=== PATIENT | female | born 1985 | race Caucasian/White ===

== ENCOUNTER 2022-10-09 19:10 | Emergency (ER) | payer OTHER, SELFPAY ==
[2022-10-09 19:20] VITALS: BP 127/93; PULSE 82; RESP 16; TEMP 36.7; O2SAT 100; BMI 27.5
--- NOTE | 2022-10-09 19:32 | ED.SKABFB1 ---
HPI - Skin/Abscess/Foreign Bdy General Chief complaint: Skin/Abscess/Foreign Body Stated complaint: ALLERGIC REACTION Time Seen by Provider: 10/09/22 19:26 Source: patient Mode of arrival: walk-in History of Present Illness HPI narrative: patient is a 37-year-old female who presents to the emergency department for the evaluation of a burning, red and itchy rash across the face. She states she was mowing her lawn and when she took a shower shortly after, she noticed redness and itching on her face, she put an anti-itch cream with menthol on her face and states shortly after she notiiced significant increase in redness across the face with burning, redness and itching. She has not had any drainage. She denies any sensation of the rash inside the mouth. She has not had any tongue swelling, lip swelling, difficulty breathing. She has not had any diffuse hives. No oral medications taken prior to arrival, no concern for . Related Data Previous Rx's Medication Instructions Recorded hydroxyzine HCl 25 mg tablet 25 mg PO Q6H PRN itching #20 tabs 10/09/22 methylprednisolone 4 mg tablets in 4 mg PO DAILY #21 ea 10/09/22 a dose pack (Medrol (Dominick)) Allergies Allergy/AdvReac Type Severity Reaction Status Date / Time Penicillins Allergy Severe Verified 10/09/22 19:25 tramadol Allergy Severe Verified 10/09/22 19:25 bees Allergy Severe Uncoded 10/09/22 19:25 Review of Systems ROS Constitutional Denies: fever or chills Ears, nose, mouth, and throat Denies: throat pain Cardiovascular Denies: chest pain Respiratory Denies: shortness of breath or cough Gastrointestinal Denies: nausea or vomiting Integumentary/Breast Reports: rash, itching and redness Neurological Denies: headache Allergic/Immunologic Reports: facial swelling; Denies: hives, throat swelling or tongue swelling Exam Narrative Exam Narrative: Gen.: Awake, alert, in no distress Head: Normocephalic, atraumatic ENT: Moist mucous membranes, diffuse mild erythematous rash across the cheeks, forehead with no vesicles, crusting or drainage. No lesions in the mouth or the mucous membranes noted. No tongue, lip or airway swelling. Uvula midline with airway widely open and patent. Clear speech. Respiratory: No respiratory distress, lungs clear bilaterally Psych: Normal mood and affect Neuro: No focal neuro deficit Skin: Warm, dry, rash as described above Constitutional Vital Signs, click to edit/add: Last Vital Signs Temp 98.1 F 10/09/22 19:20 Pulse 82 10/09/22 19:20 Resp 16 10/09/22 19:20 BP 127/93 H 10/09/22 19:20 Pulse Ox 100 10/09/22 19:20 O2 Del Method Room Air 10/09/22 19:20 Course Vital Signs Vital signs: Vital Signs Temperature 98.1 F 10/09/22 19:20 Pulse Rate 82 10/09/22 19:20 Respiratory Rate 16 10/09/22 19:20 Blood Pressure 127/93 H 10/09/22 19:20 Pulse Oximetry 100 10/09/22 19:20 Oxygen Delivery Method Room Air 10/09/22 19:20 Temperature 98.1 F 10/09/22 19:20 Pulse Rate 82 10/09/22 19:20 Respiratory Rate 16 10/09/22 19:20 Blood Pressure 127/93 H 10/09/22 19:20 Pulse Oximetry 100 10/09/22 19:20 Oxygen Delivery Method Room Air 10/09/22 19:20 MDM - Skin/Abscess/Foreign Bdy MDM Narrative Medical decision making narrative: exam is consistent with a contact dermatitis. Patient is instructed not to apply any additional creams to her face and will be given a dose of antihistamines and steroids in the Emergency Room, prescriptions for Atarax and Medrol Dosepak for home. Return to the Emergency Room if symptoms change or worsen. Medical Records Attestation: I reviewed the patient's medical records. Discharge Plan Discharge Chief Complaint: Skin/Abscess/Foreign Body Clinical Impression: Skin rash, Contact dermatitis Patient Disposition: Home, Self-Care Time of Disposition Decision: 19:30 Condition: Good Mode of Transportation: Private Vehicle Prescriptions / Home Meds: New hydroxyzine HCl 25 mg tablet 25 mg PO Q6H PRN (Reason: itching) Qty: 20 0RF methylprednisolone [Medrol (Dominick)] 4 mg tablets,dose pack 4 mg PO DAILY Qty: 21 0RF Instructions: Contact Dermatitis (ED), Acute Rash (ED) Stand Alone Forms: Portal Instructions Referrals: CASH DANIEL [Primary Care Provider] - 1 week Discharge Date/Time: 10/09/22 19:48
[2022-10-09] MEDS: HYDROXYZINE HCL 25 MG TABLET PO (19:43)
[2022-10-09] MEDS: PREDNISONE 20 MG TABLET 60 MG PO (19:43)
== END 2022-10-09 19:48 | disposition home or self-care (01) ==
PROVIDERS: Emergency Provider Emergency Medicine; Family Provider Physician Assistant; PCP Physician Assistant
DX: L25.9 Unspecified contact dermatitis, unspecified cause (principal); R21 Rash and other nonspecific skin eruption
CPT/HCPCS: 99283

== ENCOUNTER 2022-10-16 12:53 | Outpatient (RCR) | payer OTHER, SELFPAY | END 2022-10-17 16:40 | disposition home or self-care (01) | LOC: PT 12:53 | PROVIDERS: Family Provider Physician Assistant; PCP Physician Assistant; Visit Provider Physician Assistant | DX: M41.25 Other idiopathic scoliosis, thoracolumbar region (principal); R20.0 Anesthesia of skin; Z87.828 Personal history of other (healed) physical injury and trauma | CPT/HCPCS: 97750 ==

== ENCOUNTER 2022-11-15 13:06 | Emergency (ER) | payer OTHER, SELFPAY ==
[2022-11-15] VITALS (8 sets, daily range): BP systolic 118–128; BP diastolic 70–91; PULSE 63–75; RESP 14–19; TEMP 36.5; O2SAT 96–98; BMI 28.0
--- NOTE | 2022-11-15 13:13 | ECG_ITS ---
The [facility] Test Date: 2022-11-15 Pat Name: DEBORAH ESPINOZA Department: Room: - Gender: Female Swatch Folder: : 1985 Requested By: [id number] Order Number: [id number] Reading MD: LUÍS GERBER Measurements Intervals [place] Rate: 62 P: 53 IA: 176 QRS: 77 QRSD: 84 T: 40 QT: 418 QTc: 422 Interpretive Statements 1100 Sinus rhythm 9110 normal ECG No previous ECG available for comparison Electronically Signed On 11-16-2022 7:08:10 EDT by LUÍS GERBER
--- NOTE | 2022-11-15 13:13 | ED.ALLEREA1 ---
Documented by User: DEBORAH Hdez 11/15/22 14:13 HPI - Allergic Reaction General Chief complaint: Allergic Reaction Stated complaint: BEE STING Time Seen by Provider: 11/15/22 13:09 Source: patient Mode of arrival: ambulance Limitations: no limitations History of Present Illness HPI narrative: Patient is a 37-year-old female presents to the emergency department for the evaluation of a bee sting to the dorsum of the left foot. She states she was stung twenty minutes ago. She injected herself with an EpiPen that she has a history of bee sting ALLERGY. She has not had any diffuse urticaria, lip swelling or tongue swelling. She called 911 to bring her to the hospital for evaluation. She arrives with normal vital signs. She states the left foot feels numb and painful. No other medications prior to arrival. She is not concerned for . Related Data Home Medications Medication Instructions Recorded Confirmed albuterol sulfate 90 mcg/actuation 2 puff inhalation Q6H PRN wheezing 11/15/22 11/15/22 aerosol inhaler bupropion HCl 150 mg 24 hr tablet, 150 mg PO DAILY 11/15/22 11/15/22 extended release ciclopirox 0.77 % topical cream 1 applic topical Q12H 11/15/22 11/15/22 diclofenac sodium 1 % topical gel 2 g topical QID 11/15/22 11/15/22 epinephrine 0.3 mg/0.3 mL 0.3 ml subcut ONCE PRN allergic 11/15/22 11/15/22 injection, auto-injector reaction ibuprofen 800 mg tablet 800 mg PO TID PRN pain 11/15/22 11/15/22 melatonin 5 mg capsule mg 11/15/22 triamcinolone acetonide 0.1 % 1 applic topical .12H 11/15/22 11/15/22 topical cream Previous Rx's Medication Instructions Recorded hydroxyzine HCl 25 mg tablet 25 mg PO Q6H PRN itching #20 tabs 10/09/22 methylprednisolone 4 mg tablets in 4 mg PO DAILY #21 ea 10/09/22 a dose pack (Medrol (Dominick)) hydroxyzine HCl 25 mg tablet 25 mg PO Q6H PRN itching #20 tabs 11/15/22 prednisone 20 mg tablet 60 mg PO DAILY 3 days #9 tabs 11/15/22 Allergies Allergy/AdvReac Type Severity Reaction Status Date / Time Penicillins Allergy Severe Verified 11/15/22 13:09 tramadol Allergy Severe Verified 11/15/22 13:09 bees Allergy Severe Uncoded 11/15/22 13:09 Review of Systems ROS Constitutional Denies: fever or chills Ears, nose, mouth, and throat Denies: throat pain Cardiovascular Denies: chest pain Respiratory Denies: shortness of breath Gastrointestinal Denies: nausea or vomiting Musculoskeletal Denies: back pain Integumentary/Breast Denies: rash Allergic/Immunologic Denies: hives, throat swelling, tongue swelling, facial swelling or wheezing PFSH [facility] Social History Smoking status: Former smoker Exam Narrative Exam Narrative: Gen.: Awake, alert, in no distress Head: Normocephalic, atraumatic ENT: Moist mucous membranes; no facial swelling, tongue or lip swelling. No stridor. Respiratory: No respiratory distress, lungs clear bilaterally; no wheezing noted Cardio: Regular rate and rhythm Extremities: Moves extremities equally, 2 cm faintly erythematous area to the dorsum of the left foot, no visible stinger. No induration. No diffuse hives. Psych: Normal mood and affect Neuro: No focal neuro deficit Skin: Warm, dry, intact; no rashes or urticaria noted. Bee sting to the dorsum of the left foot as described above. Constitutional Vital Signs, click to edit/add: Last Vital Signs Temp 97.7 F 11/15/22 13:06 Pulse 75 11/15/22 13:06 Resp 18 11/15/22 13:06 BP 128/70 11/15/22 13:06 Pulse Ox 98 11/15/22 13:06 O2 Del Method Room Air 11/15/22 13:06 Course Vital Signs Vital signs: Vital Signs Temperature 97.7 F 11/15/22 13:06 Pulse Rate 75 11/15/22 13:06 Respiratory Rate 18 11/15/22 13:06 Blood Pressure 128/70 11/15/22 13:06 Pulse Oximetry 98 11/15/22 13:06 Oxygen Delivery Method Room Air 11/15/22 13:06 Temperature 97.7 F 11/15/22 13:06 Pulse Rate 75 11/15/22 13:06 Respiratory Rate 18 11/15/22 13:06 Blood Pressure 128/70 11/15/22 13:06 Pulse Oximetry 98 11/15/22 13:06 Oxygen Delivery Method Room Air 11/15/22 13:06 MDM - Allergic Reaction MDM Narrative Medical decision making narrative: Patient observed in the emergency department for over an hour, she has no tachycardia, hypoxia. She appears well-hydrated and nontoxic. She was given IV fluids and Solu-Medrol in the Emergency Room will be discharged home with a short course of prednisone and antihistamines. No significant ALLERGIC reaction noted in the emergency department. Follow-up with PCP and return to the Emergency Room if symptoms change or worsen Medical Records Attestation: I reviewed the patient's medical records. ECG Data Attestation: I personally reviewed and interpreted this ECG as follows: (Normal sinus rhythm at a rate of sixty-two, no acute ST elevation or ectopy. EKG reviewed by attending physician) ECG interpretation date: 11/15/22 ECG interpretation time: 13:29 Discharge Plan Discharge Chief Complaint: Allergic Reaction Clinical Impression: Bee sting Patient Disposition: Home, Self-Care Time of Disposition Decision: 14:12 Condition: Good Prescriptions / Home Meds: New prednisone 20 mg tablet 60 mg PO DAILY 3 Days Qty: 9 0RF hydroxyzine HCl 25 mg tablet 25 mg PO Q6H PRN (Reason: itching) Qty: 20 0RF No Action albuterol sulfate 90 mcg/actuation HFA aerosol inhaler 2 puff INHALATION Q6H PRN (Reason: wheezing) bupropion HCl 150 mg tablet extended release 24 hr 150 mg PO DAILY ciclopirox 0.77 % cream 1 applic TOPICAL Q12H epinephrine 0.3 mg/0.3 mL auto-injector 0.3 ml subcut ONCE PRN (Reason: allergic reaction) triamcinolone acetonide 0.1 % cream 1 applic TOPICAL .12H ibuprofen 800 mg tablet 800 mg PO TID PRN (Reason: pain) diclofenac sodium 1 % gel 2 g topical QID Rx Instructions: apply to single elbow, wrist or hand; for hand includes palm/fingers/back of hand melatonin 5 mg capsule hydroxyzine HCl 25 mg tablet 25 mg PO Q6H PRN (Reason: itching) Qty: 20 0RF methylprednisolone [Medrol (Dominick)] 4 mg tablets,dose pack 4 mg PO DAILY Qty: 21 0RF Instructions: Insect Bite or Sting (ED) Stand Alone Forms: Portal Instructions Referrals: CASH DANIEL [Primary Care Provider] - 1 week Discharge Date/Time: 11/15/22 14:23 Documented by User: Jena Rick MD 11/15/22 16:39 HPI - Allergic Reaction General Chief complaint: Allergic Reaction Stated complaint: BEE STING Time Seen by Provider: 11/15/22 13:09 Related Data Home Medications Medication Instructions Recorded Confirmed albuterol sulfate 90 mcg/actuation 2 puff inhalation Q6H PRN wheezing 11/15/22 11/15/22 aerosol inhaler bupropion HCl 150 mg 24 hr tablet, 150 mg PO DAILY 11/15/22 11/15/22 extended release ciclopirox 0.77 % topical cream 1 applic topical Q12H 11/15/22 11/15/22 diclofenac sodium 1 % topical gel 2 g topical QID 11/15/22 11/15/22 epinephrine 0.3 mg/0.3 mL 0.3 ml subcut ONCE PRN allergic 11/15/22 11/15/22 injection, auto-injector reaction ibuprofen 800 mg tablet 800 mg PO TID PRN pain 11/15/22 11/15/22 melatonin 5 mg capsule mg 11/15/22 triamcinolone acetonide 0.1 % 1 applic topical .12H 11/15/22 11/15/22 topical cream Previous Rx's Medication Instructions Recorded hydroxyzine HCl 25 mg tablet 25 mg PO Q6H PRN itching #20 tabs 10/09/22 methylprednisolone 4 mg tablets in 4 mg PO DAILY #21 ea 10/09/22 a dose pack (Medrol (Dominick)) hydroxyzine HCl 25 mg tablet 25 mg PO Q6H PRN itching #20 tabs 11/15/22 prednisone 20 mg tablet 60 mg PO DAILY 3 days #9 tabs 11/15/22 Allergies Allergy/AdvReac Type Severity Reaction Status Date / Time Penicillins Allergy Severe Verified 11/15/22 13:09 tramadol Allergy Severe Verified 11/15/22 13:09 bees Allergy Severe Uncoded 11/15/22 13:09 [facility] Social History Smoking status: Former smoker Exam Constitutional Vital Signs, click to edit/add: Last Vital Signs Temp 97.7 F 11/15/22 13:06 Pulse 75 11/15/22 13:06 Resp 18 11/15/22 13:06 BP 128/70 11/15/22 13:06 Pulse Ox 98 11/15/22 13:06 O2 Del Method Room Air 11/15/22 13:06 Course Vital Signs Vital signs: Vital Signs Temperature 97.7 F 11/15/22 13:06 Pulse Rate 75 11/15/22 13:06 Respiratory Rate 18 11/15/22 13:06 Blood Pressure 128/70 11/15/22 13:06 Pulse Oximetry 98 11/15/22 13:06 Oxygen Delivery Method Room Air 11/15/22 13:06 Temperature 97.7 F 11/15/22 13:06 Pulse Rate 75 11/15/22 13:06 Respiratory Rate 18 11/15/22 13:06 Blood Pressure 128/70 11/15/22 13:06 Pulse Oximetry 98 11/15/22 13:06 Oxygen Delivery Method Room Air 11/15/22 13:06 MDM - Allergic Reaction MDM Narrative Medical decision making narrative: Patient observed in the emergency department for over an hour, she has no tachycardia, hypoxia. She appears well-hydrated and nontoxic. She was given IV fluids and Solu-Medrol in the Emergency Room will be discharged home with a short course of prednisone and antihistamines. No significant ALLERGIC reaction noted in the emergency department. Follow-up with PCP and return to the Emergency Room if symptoms change or worsen Attending physician attestation I have reviewed the mid-level documentation, agree with the documentation, medical decision making and treatment plan as outlined by the mid-level provider. Discharge Plan Discharge Chief Complaint: Allergic Reaction Clinical Impression: Bee sting Patient Disposition: Home, Self-Care Time of Disposition Decision: 14:12 Condition: Good Prescriptions / Home Meds: New prednisone 20 mg tablet 60 mg PO DAILY 3 Days Qty: 9 0RF hydroxyzine HCl 25 mg tablet 25 mg PO Q6H PRN (Reason: itching) Qty: 20 0RF No Action albuterol sulfate 90 mcg/actuation HFA aerosol inhaler 2 puff INHALATION Q6H PRN (Reason: wheezing) bupropion HCl 150 mg tablet extended release 24 hr 150 mg PO DAILY ciclopirox 0.77 % cream 1 applic TOPICAL Q12H epinephrine 0.3 mg/0.3 mL auto-injector 0.3 ml subcut ONCE PRN (Reason: allergic reaction) triamcinolone acetonide 0.1 % cream 1 applic TOPICAL .12H ibuprofen 800 mg tablet 800 mg PO TID PRN (Reason: pain) diclofenac sodium 1 % gel 2 g topical QID Rx Instructions: apply to single elbow, wrist or hand; for hand includes palm/fingers/back of hand melatonin 5 mg capsule hydroxyzine HCl 25 mg tablet 25 mg PO Q6H PRN (Reason: itching) Qty: 20 0RF methylprednisolone [Medrol (Dominick)] 4 mg tablets,dose pack 4 mg PO DAILY Qty: 21 0RF Instructions: Insect Bite or Sting (ED) Stand Alone Forms: Portal Instructions Referrals: CASH DANIEL [Primary Care Provider] - 1 week Discharge Date/Time: 11/15/22 14:23
[2022-11-15] MEDS: 0.9 % SODIUM CHLORIDE 1,000 ML 1000 ML IV (13:22)
[2022-11-15] MEDS: METHYLPREDNISOLONE SOD SUCC PF 125 MG/2 ML VIAL IVP (13:22)
== END 2022-11-15 14:23 | disposition home or self-care (01) ==
PROVIDERS: Emergency Provider Emergency Medicine; Family Provider Physician Assistant; PCP Physician Assistant
DX: T63.441A Toxic effect of venom of bees, accidental (unintentional), initial encounter (principal); Z79.899 Other long term (current) drug therapy; Z87.891 Personal history of nicotine dependence
CPT/HCPCS: 93005; 96374; 99284; J2930

== ENCOUNTER 2022-12-10 14:07 | Emergency (ER) | payer OTHER, SELFPAY ==
[2022-12-10 14:13] VITALS: BP 130/95; PULSE 95; RESP 16; TEMP 36.7; O2SAT 96; BMI 28.5
--- NOTE | 2022-12-10 14:55 | XR_ITS ---
The [address] [address] Patient Name: DEBORAH ESPINOZA MRN: [id number] date: 1985 Sex: F Assigned Patient Location: ER Current Patient Location: ER Accession/Order Number: [id number] Exam Date: 12/10/2022 15:10 Report Date: 12/10/2022 15:38 At the request of: DOMO AGUILAR Procedure: XR finger LT min 2V EXAM: XR finger LT min 2V HISTORY: Fifth digit trauma COMPARISON: None. TECHNIQUE: 2 views FINDINGS: IMPRESSION: No visualized fracture, dislocation, subluxation or osseous lesion. No radiodense foreign body. Electronically authenticated by: TEODORO LINARES Date: 12/10/2022 15:38
--- NOTE | 2022-12-10 15:24 | ED_ITS ---
HPI - General Adult General Chief complaint: Wound/Laceration Stated complaint: LEFT HAND CUT Time Seen by Provider: 12/10/22 14:29 Source: patient and family Mode of arrival: walk-in Limitations: no limitations History of Present Illness HPI narrative: The patient presented to us with a laceration to the left pinky finger that happened within the last hour before arrival, the patient mentioned that she was working with a metal fence although the patient mechanism of injury is not clear because she mentioned at her some point she had some dirt on her hand and she also had trauma that she was worried about fracture The patient denies any other complaints and she also had her tetanus booster more than 5 years ago Related Data Home Medications Medication Instructions Recorded Confirmed albuterol sulfate 90 mcg/actuation 2 puff inhalation Q6H PRN wheezing 11/15/22 11/15/22 aerosol inhaler bupropion HCl 150 mg 24 hr tablet, 150 mg PO DAILY 11/15/22 11/15/22 extended release ciclopirox 0.77 % topical cream 1 applic topical Q12H 11/15/22 11/15/22 diclofenac sodium 1 % topical gel 2 g topical QID 11/15/22 11/15/22 epinephrine 0.3 mg/0.3 mL 0.3 ml subcut ONCE PRN allergic 11/15/22 11/15/22 injection, auto-injector reaction ibuprofen 800 mg tablet 800 mg PO TID PRN pain 11/15/22 11/15/22 melatonin 5 mg capsule mg 11/15/22 triamcinolone acetonide 0.1 % 1 applic topical .12H 11/15/22 11/15/22 topical cream Previous Rx's Medication Instructions Recorded hydroxyzine HCl 25 mg tablet 25 mg PO Q6H PRN itching #20 tabs 10/09/22 methylprednisolone 4 mg tablets in 4 mg PO DAILY #21 ea 10/09/22 a dose pack (Medrol (Dominick)) hydroxyzine HCl 25 mg tablet 25 mg PO Q6H PRN itching #20 tabs 11/15/22 prednisone 20 mg tablet 60 mg PO DAILY 3 days #9 tabs 11/15/22 doxycycline hyclate 100 mg capsule 100 mg PO BID 7 days #14 caps 12/10/22 Allergies Allergy/AdvReac Type Severity Reaction Status Date / Time Penicillins Allergy Severe Verified 12/10/22 14:19 tramadol Allergy Severe Verified 12/10/22 14:19 bees Allergy Severe Uncoded 12/10/22 14:19 whooping cough vaccine AdvReac Severe itching Uncoded 12/10/22 14:19 Review of Systems ROS Status of ROS 10 or more systems reviewed and unremarkable except as noted in history and below [facility] Social History Smoking status: Never smoker Exam Narrative Exam Narrative: Nurses notes and vital signs reviewed and patient is not hypoxic. General: Well-appearing and in no apparent distress. Skin: Warm, dry, no pallor noted. No rash. Head: Normocephalic, atraumatic. Neck: Supple, non-tender. Eye: Pupils are equal, round and EOMI. No scleral icterus. Ears, Nose, Mouth, and Throat: TM are clear, no nasal mucosal hypertrophy. Oral mucosa is moist, no posterior oropharynx erythema, uvula is mid-line Cardiovascular: Regular Rate and Rhythm without murmur, gallop or rub. Respiratory: No accessory muscle use or respiratory distress. Lungs are clear to auscultation, no wheezing, rales or rhonchi Chest Wall: no tenderness Back: No midline thoracic or lumbar vertebral tenderness. No CVA tenderness Musculoskeletal: normal ROM, no calf or popliteal tenderness, just by the small finger proximally on the dorsum of the left small finger the patient have a laceration that 1 cm linear no foreign body just proximal to the interphalangeal proximal joint, there was no foreign body and there was no exposure of the underlying structure it was holding its place in good tension there was tendern ess upon palpation of the underlying bone GI: Abdomen is soft, non-distended. Normal bowel sounds. No masses appreciated. No tenderness to palpation. No rebound, guarding, or rigidity noted. Neurological: A&O x4. No cranial nerve dysfunction observed. No truncal ataxia. Moves all extremities. Sensation intact. Psychiatric: Cooperative and interactive. Normal mood and affect. Constitutional Vital Signs, click to edit/add: Last Vital Signs Temp 98.1 F 12/10/22 14:13 Pulse 95 H 12/10/22 14:13 Resp 16 12/10/22 14:13 BP 130/95 H 12/10/22 14:13 Pulse Ox 96 12/10/22 14:13 O2 Del Method Room Air 12/10/22 14:13 Course Vital Signs Vital signs: Vital Signs Temperature 98.1 F 12/10/22 14:13 Pulse Rate 95 H 12/10/22 14:13 Respiratory Rate 16 12/10/22 14:13 Blood Pressure 130/95 H 12/10/22 14:13 Pulse Oximetry 96 12/10/22 14:13 Oxygen Delivery Method Room Air 12/10/22 14:13 Temperature 98.1 F 12/10/22 14:13 Pulse Rate 95 H 12/10/22 14:13 Respiratory Rate 16 12/10/22 14:13 Blood Pressure 130/95 H 12/10/22 14:13 Pulse Oximetry 96 12/10/22 14:13 Oxygen Delivery Method Room Air 12/10/22 14:13 Medical Decision Making MDM Narrative Medical decision making narrative: The patient wound was cleaned thoroughly with Betadine and normal saline after which she had Dermabond applied and a finger splint The patient refused the tetanus booster because she mentioned that she have allergy to the whooping cough vaccine The patient had an x-ray of her left small finger X-ray showed no acute pathology the patient instructed about wound care and discharged home with doxycyclin prescription as well as ibuprofen for the pain The patient is to follow up with primary care physician in next 2-3 days or to return to the emergency department should any of the signs or symptoms worsen or new symptoms develop. The patient agrees with the following Diagnosis and Treatment plan and the patient will be discharged home. Discharge Plan Discharge Chief Complaint: Wound/Laceration Clinical Impression: Contusion of finger, Finger laceration Patient Disposition: Home, Self-Care Time of Disposition Decision: 15:51 Prescriptions / Home Meds: New doxycycline hyclate 100 mg capsule 100 mg PO BID 7 Days Qty: 14 0RF No Action albuterol sulfate 90 mcg/actuation HFA aerosol inhaler 2 puff INHALATION Q6H PRN (Reason: wheezing) bupropion HCl 150 mg tablet extended release 24 hr 150 mg PO DAILY ciclopirox 0.77 % cream 1 applic TOPICAL Q12H epinephrine 0.3 mg/0.3 mL auto-injector 0.3 ml subcut ONCE PRN (Reason: allergic reaction) triamcinolone acetonide 0.1 % cream 1 applic TOPICAL .12H ibuprofen 800 mg tablet 800 mg PO TID PRN (Reason: pain) diclofenac sodium 1 % gel 2 g topical QID Rx Instructions: apply to single elbow, wrist or hand; for hand includes palm/fingers/back of hand melatonin 5 mg capsule prednisone 20 mg tablet 60 mg PO DAILY 3 Days Qty: 9 0RF hydroxyzine HCl 25 mg tablet 25 mg PO Q6H PRN (Reason: itching) Qty: 20 0RF hydroxyzine HCl 25 mg tablet 25 mg PO Q6H PRN (Reason: itching) Qty: 20 0RF methylprednisolone [Medrol (Dominick)] 4 mg tablets,dose pack 4 mg PO DAILY Qty: 21 0RF Instructions: Finger Laceration (ED) Stand Alone Forms: Portal Instructions Referrals: CASH DANIEL [Primary Care Provider] - 1 week
== END 2022-12-10 16:04 | disposition home or self-care (01) ==
PROVIDERS: Emergency Provider Emergency Medicine; Family Provider Physician Assistant; PCP Physician Assistant
DX: S61.217A Laceration without foreign body of left little finger without damage to nail, initial encounter (principal); S60.022A Contusion of left index finger without damage to nail, initial encounter; W45.8XXA Other foreign body or object entering through skin, initial encounter; Z79.899 Other long term (current) drug therapy
CPT/HCPCS: 12001; 73140; 99283

== ENCOUNTER 2022-12-22 13:02 | Outpatient (OUT) | payer OTHER, SELFPAY ==
--- NOTE | 2022-12-22 13:22 | XR_ITS ---
The [address] [address] Patient Name: DEBORAH ESPINOZA MRN: [id number] date: 1985 Sex: F Assigned Patient Location: [facility] Current Patient Location: [facility] Accession/Order Number: [id number] Exam Date: 12/22/2022 13:15 Report Date: 12/22/2022 13:50 At the request of: CASH DANIEL Procedure: XR finger LT min 2V EXAM: XR finger LT min 2V HISTORY: Finger Injury And Swelling COMPARISON: None. TECHNIQUE: 3 views of the left fifth digit. FINDINGS: There is no evidence of an acute fracture or dislocation. The visualized joint spaces are intact. Soft tissue swelling is noted. No radiopaque foreign body or free air is seen in the soft tissues. XR/XR finger LT min 2V IMPRESSION: No acute fracture or dislocation. No apparent osseous abnormality is identified. Focal soft tissue swelling is noted. Electronically authenticated by: ZAHRA ROCHE Date: 12/22/2022 13:50
== END 2022-12-22 13:03 | disposition home or self-care (01) ==
LOC: RAD 13:04
PROVIDERS: Family Provider Physician Assistant; PCP Physician Assistant; Visit Provider Physician Assistant
DX: M79.89 Other specified soft tissue disorders (principal); S69.92XA Unspecified injury of left wrist, hand and finger(s), initial encounter
CPT/HCPCS: 73140

== ENCOUNTER 2023-04-16 16:45 | Emergency (ER) | payer OTHER, SELFPAY ==
[2023-04-16 16:48] VITALS: BP 144/95; PULSE 78; RESP 16; TEMP 36.8; O2SAT 98; BMI 27.1
--- NOTE | 2023-04-16 16:51 | XR_ITS ---
The [address] [address] Patient Name: DEBORAH ESPINOZA MRN: [facility]:[id number] date: 1985 Sex: F Assigned Patient Location: ER Current Patient Location: ER Accession/Order Number: [id number] Exam Date: 04/16/2023 17:12 Report Date: 04/16/2023 17:46 At the request of: LUPE ARMANDO Procedure: XR foot LT min 3V EXAM: XR foot LT min 3V HISTORY: injury COMPARISON: None. TECHNIQUE: 3 views of the left foot FINDINGS: There is no acute fracture or dislocation. No cortical erosion. Soft tissues are unremarkable. XR/XR foot LT min 3V IMPRESSION: No acute fracture. Electronically authenticated by: KANCHAN MATIAS Date: 04/16/2023 17:46
--- NOTE | 2023-04-16 16:52 | ED.LOWEXI1 ---
HPI - Extremity Injury (Lower) General Chief Complaint: Extremity Injury, Lower Stated Complaint: foot injury Time Seen by Provider: 04/16/23 16:47 Source: patient Mode of arrival: walk-in History of Present Illness HPI Narrative: Patient is a 37-year-old female who presents to the emergency department for an injury to the left foot that occurred yesterday at home. She states she was outside when a picnic table fell on the dorsum of her left foot. She complains of pain over the great toe and into the dorsal medial aspect of the left foot. She ambulates with crutches into the ER. She had no other associated injuries. No ankle pain. No concern for . Related Data Home Medications Medication Instructions Recorded Confirmed albuterol sulfate 90 mcg/actuation 2 puff inhalation Q6H PRN wheezing 11/15/22 04/16/23 aerosol inhaler bupropion HCl 150 mg 24 hr tablet, 150 mg PO DAILY 11/15/22 04/16/23 extended release ciclopirox 0.77 % topical cream 1 applic topical Q12H 11/15/22 04/16/23 diclofenac sodium 1 % topical gel 2 g topical QID 11/15/22 04/16/23 epinephrine 0.3 mg/0.3 mL 0.3 ml subcut ONCE PRN allergic 11/15/22 04/16/23 injection, auto-injector reaction melatonin 5 mg capsule 5 mg PO QPM 11/15/22 04/16/23 aripiprazole 2 mg tablet 2 mg PO QAM 04/16/23 04/16/23 ciclopirox 1 % shampoo 5 ml topical QWEEK 04/16/23 04/16/23 Previous Rx's Medication Instructions Recorded naproxen sodium 550 mg tablet 550 mg PO BID PRN pain #10 tabs 04/16/23 Allergies Allergy/AdvReac Type Severity Reaction Status Date / Time Penicillins Allergy Severe Verified 12/10/22 14:19 tramadol Allergy Severe Verified 12/10/22 14:19 bees Allergy Severe Uncoded 12/10/22 14:19 whooping cough vaccine AdvReac Severe itching Uncoded 12/10/22 14:19 Review of Systems ROS Constitutional Denies: fever or chills Ears, nose, mouth, and throat Denies: throat pain or nasal congestion Cardiovascular Denies: chest pain Respiratory Denies: shortness of breath or cough Gastrointestinal Denies: nausea or vomiting Musculoskeletal Reports: extremity pain; Denies: back pain, neck pain, extremity swelling or joint pain Integumentary/Breast Denies: rash Neurological Denies: headache Allergic/Immunologic Denies: h[facility] Social History Smoking status: Never smoker Exam Narrative Exam Narrative: Gen.: Awake, alert, in no distress Head: Normocephalic, atraumatic ENT: Moist mucous membranes Respiratory: No respiratory distress Extremities: Moves extremities equally, No bony tenderness of the left foot with no obvious deformity, no swelling, no ecchymosis. Limited flexion and extension of the toes due to pain. 2+ left DP pulse. No bony tenderness of the medial or lateral left ankle Psych: Normal mood and affect Neuro: No focal neuro deficit Skin: Warm, dry, intact Constitutional Vital Signs, click to edit/add: Last Vital Signs Temp 98.2 F 04/16/23 16:48 Pulse 78 04/16/23 16:48 Resp 16 04/16/23 16:48 BP 144/95 H 04/16/23 16:48 Pulse Ox 98 04/16/23 16:48 O2 Del Method Room Air 04/16/23 16:48 Course Vital Signs Vital signs: Vital Signs Temperature 98.2 F 04/16/23 16:48 Pulse Rate 78 04/16/23 16:48 Respiratory Rate 16 04/16/23 16:48 Blood Pressure 144/95 H 04/16/23 16:48 Pulse Oximetry 98 04/16/23 16:48 Oxygen Delivery Method Room Air 04/16/23 16:48 Temperature 98.2 F 04/16/23 16:48 Pulse Rate 78 04/16/23 16:48 Respiratory Rate 16 04/16/23 16:48 Blood Pressure 144/95 H 04/16/23 16:48 Pulse Oximetry 98 04/16/23 16:48 Oxygen Delivery Method Room Air 04/16/23 16:48 MDM - Extremity Injury (Lower) MDM Narrative Medical decision making narrative: X-rays with no evidence of acute fracture, these were read by the radiologist. Patient has crutches. She is placed in an Prakash wrap and postop shoe and given NSAIDs for comfort for home. Follow-up with PCP. Rest, ice, elevate. Return to the ER if symptoms change or worsen. Medical Records Attestation: I reviewed the patient's medical records. Imaging Data XR foot: Attestation: I have reviewed the pertinent imaging results. Radiologist's impression: ITS Impressions Foot X-Ray 04/16/23 16:51 IMPRESSION: No acute fracture. Electronically authenticated by: KANCHAN MATIAS Date: 04/16/2023 17:46 Discharge Plan Discharge Chief Complaint: Extremity Injury, Lower Clinical Impression: Contusion of foot, left Patient Disposition: Home, Self-Care Time of Disposition Decision: 17:54 Condition: Good Prescriptions / Home Meds: New naproxen sodium 550 mg tablet 550 mg PO BID PRN (Reason: pain) Qty: 10 0RF No Action albuterol sulfate 90 mcg/actuation HFA aerosol inhaler 2 puff INHALATION Q6H PRN (Reason: wheezing) bupropion HCl 150 mg tablet extended release 24 hr 150 mg PO DAILY ciclopirox 0.77 % cream 1 applic TOPICAL Q12H epinephrine 0.3 mg/0.3 mL auto-injector 0.3 ml subcut ONCE PRN (Reason: allergic reaction) diclofenac sodium 1 % gel 2 g topical QID Rx Instructions: apply to single elbow, wrist or hand; for hand includes palm/fingers/back of hand melatonin 5 mg capsule 5 mg PO QPM aripiprazole 2 mg tablet 2 mg PO QAM ciclopirox 1 % shampoo 5 ml TOPICAL QWEEK Instructions: Foot Contusion (ED) Stand Alone Forms: Portal Instructions Referrals: CASH DANIEL [Primary Care Provider] - 1 week Discharge Date/Time: 04/16/23 18:14
--- NOTE | 2023-04-16 16:52 | PC.NURSE ---
home scooter wrap removed and no swelling to site, small bruise to mid great toe. pt using home crutches upon arrival, ice in place
== END 2023-04-16 18:14 | disposition home or self-care (01) ==
PROVIDERS: Emergency Provider Emergency Medicine; Family Provider Physician Assistant; PCP Physician Assistant
DX: S90.32XA Contusion of left foot, initial encounter (principal); W20.8XXA Other cause of strike by thrown, projected or falling object, initial encounter; Z79.899 Other long term (current) drug therapy
CPT/HCPCS: 73630; 99283

== ENCOUNTER 2023-05-16 20:50 | Emergency (ER) | payer OTHER, SELFPAY ==
[2023-05-16 20:55] VITALS: BP 144/90; PULSE 94; RESP 18; TEMP 36.9; O2SAT 96; BMI 28.1
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
--- NOTE | 2023-05-16 21:06 | ED.URI1 ---
HPI - URI/Sore Throat General Chief Complaint: Upper Respiratory Infection Stated Complaint: Flu Like Symptoms Time Seen by Provider: 05/16/23 21:00 Source: patient Limitations: no limitations History of Present Illness HPI Narrative: Patient is a 37-year-old female who presents to the emergency department for the evaluation of upper respiratory complaints. She states her primary concern is her sore throat for the last 2 days associated with low-grade fevers, chills, nasal congestion and cough. She has had no sputum production, nausea, vomiting, diarrhea. She is able to drink fluids without difficulty. She is not concerned for . No medications taken prior to arrival other than Motrin. She reports temperatures as high as 101.0 Fahrenheit earlier in the course of her illness.She did recently travel to visit family, her family member questions if she may have picked up something. Related Data Home Medications Medication Instructions Recorded Confirmed albuterol sulfate 90 mcg/actuation 2 puff inhalation Q6H PRN wheezing 11/15/22 04/16/23 aerosol inhaler bupropion HCl 150 mg 24 hr tablet, 150 mg PO DAILY 11/15/22 04/16/23 extended release ciclopirox 0.77 % topical cream 1 applic topical Q12H 11/15/22 04/16/23 diclofenac sodium 1 % topical gel 2 g topical QID 11/15/22 04/16/23 epinephrine 0.3 mg/0.3 mL 0.3 ml subcut ONCE PRN allergic 11/15/22 04/16/23 injection, auto-injector reaction melatonin 5 mg capsule 5 mg PO QPM 11/15/22 04/16/23 aripiprazole 2 mg tablet 2 mg PO QAM 04/16/23 04/16/23 ciclopirox 1 % shampoo 5 ml topical QWEEK 04/16/23 04/16/23 Previous Rx's Medication Instructions Recorded naproxen sodium 550 mg tablet 550 mg PO BID PRN pain #10 tabs 04/16/23 qecdasgkrujqewl-bwortmalgrstnyw-TK 10 ml PO Q6H PRN cold symptoms 05/16/23 2 mg-30 mg-10 mg/5 mL oral syrup #200 mL (Bromfed DM) Allergies Allergy/AdvReac Type Severity Reaction Status Date / Time Penicillins Allergy Severe Verified 05/16/23 21:00 tramadol Allergy Severe Verified 05/16/23 21:00 bees Allergy Severe Uncoded 05/16/23 21:00 whooping cough vaccine AdvReac Severe itching Uncoded 05/16/23 21:00 Review of Systems ROS Constitutional Reports: fever and chills Ears, nose, mouth, and throat Reports: throat pain, ear pain, nasal discharge and nasal congestion; Denies: difficulty swallowing or hoarseness Cardiovascular Denies: chest pain Respiratory Reports: cough; Denies: shortness of breath Gastrointestinal Denies: nausea, vomiting or diarrhea Genitourinary Denies: painful urination Integumentary/Breast Denies: rash Neurological Denies: headache Endocrine Denies: excessive urination [facility] Social History Smoking status: Former smoker Exam Narrative Exam Narrative: Gen.: Awake, alert, in no distress Head: Normocephalic, atraumatic ENT: Moist mucous membranes, Airway is widely open and patent, uvula midline, minimal pharyngeal erythema with no tonsillar edema or exudate. Clear speech, no trismus or drooling. No hoarse or muffled voice.Bilateral TMs bulging, clear Respiratory: No respiratory distress, lungs clear bilaterally Cardio: Regular rate and rhythm Extremities: Moves extremities equally Psych: Normal mood and affect Neuro: No focal neuro deficit Skin: Warm, dry, intact Constitutional Vital Signs, click to edit/add: Last Vital Signs Temp 98.4 F 05/16/23 20:55 Pulse 94 H 05/16/23 20:55 Resp 18 05/16/23 20:55 BP 144/90 H 05/16/23 20:55 Pulse Ox 96 05/16/23 20:55 O2 Del Method Room Air 05/16/23 20:55 Course Vital Signs Vital signs: Vital Signs Temperature 98.4 F 05/16/23 20:55 Pulse Rate 94 H 05/16/23 20:55 Respiratory Rate 18 05/16/23 20:55 Blood Pressure 144/90 H 05/16/23 20:55 Pulse Oximetry 96 05/16/23 20:55 Oxygen Delivery Method Room Air 05/16/23 20:55 Temperature 98.4 F 05/16/23 20:55 Pulse Rate 94 H 05/16/23 20:55 Respiratory Rate 18 05/16/23 20:55 Blood Pressure 144/90 H 05/16/23 20:55 Pulse Oximetry 96 05/16/23 20:55 Oxygen Delivery Method Room Air 05/16/23 20:55 MDM - URI/Sore Throat MDM Narrative Medical decision making narrative: Patient treated with Decadron in the ER. Strep screen, influenza and COVID tests are negative. Patient placed on Bromfed-DM and BMX solution for home. Follow-up with PCP and return to the ER if symptoms change or worsen. Medical Records Attestation: I reviewed the patient's medical records. Lab Data Attestation: I reviewed the patient's lab results. Labs: Lab Results 05/16/23 Range/Units 21:00 Influenza Type A Ag Negative Influenza Type B Ag Negative SARS-CoV-2 Ag (CV2AG) Negative (NEGATIVE) Streptococcus Screen Negative Discharge Plan Discharge Chief Complaint: Upper Respiratory Infection Clinical Impression: Upper respiratory infection, Pharyngitis Patient Disposition: Home, Self-Care Time of Disposition Decision: 21:31 Condition: Good Prescriptions / Home Meds: New xfqjladlyfyowns-jixazswne-AE [Bromfed DM] 2-30-10 mg/5 mL syrup 10 ml PO Q6H PRN (Reason: cold symptoms) Qty: 200 0RF No Action albuterol sulfate 90 mcg/actuation HFA aerosol inhaler 2 puff INHALATION Q6H PRN (Reason: wheezing) bupropion HCl 150 mg tablet extended release 24 hr 150 mg PO DAILY ciclopirox 0.77 % cream 1 applic TOPICAL Q12H epinephrine 0.3 mg/0.3 mL auto-injector 0.3 ml subcut ONCE PRN (Reason: allergic reaction) diclofenac sodium 1 % gel 2 g topical QID Rx Instructions: apply to single elbow, wrist or hand; for hand includes palm/fingers/back of hand melatonin 5 mg capsule 5 mg PO QPM aripiprazole 2 mg tablet 2 mg PO QAM ciclopirox 1 % shampoo 5 ml TOPICAL QWEEK naproxen sodium 550 mg tablet 550 mg PO BID PRN (Reason: pain) Qty: 10 0RF Instructions: Pharyngitis (ED), Upper Respiratory Infection (ED) Stand Alone Forms: Portal Instructions Referrals: CASH DANIEL [Primary Care Provider] - 1 week
[2023-05-16 21:17] LABS: Internal Control Within Normal Limits; Strep A Antigen Screen Negative
[2023-05-16 21:23] LABS: Influenza Virus A Antigen Negative; Influenza Virus B Antigen Negative; Internal Control Within Normal Limits; SARS-CoV-2 Ag NEGATIVE (NEGATIVE)
[2023-05-16] MEDS: DEXAMETHASONE SOD PHOS 10 MG/ML VIAL PO (21:42)
--- NOTE | 2023-05-16 21:49 | PC.NURSE ---
Discussed discharge paperwork with pt and . All questions answered. Scripts provided. Pt verbalized understanding to follow up with pcp. Pt ambulated off unit in stable condition.
== END 2023-05-16 21:49 | disposition home or self-care (01) ==
PROVIDERS: Physician Assistant; Emergency Provider Emergency Medicine; Family Provider Physician Assistant; PCP Physician Assistant
DX: J02.9 Acute pharyngitis, unspecified (principal); J06.9 Acute upper respiratory infection, unspecified; Z87.891 Personal history of nicotine dependence; Z79.899 Other long term (current) drug therapy; Z20.822 Contact with and (suspected) exposure to COVID-19
CPT/HCPCS: 87070; 87804; 87811; 87880; 99285; J1100

== ENCOUNTER 2023-07-02 08:59 | Outpatient (OUT) | payer OTHER, SELFPAY ==
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
--- OUTSIDE RECORDS SUMMARY | 2023-07-02 09:07 | XMS_ITS | CCD ---
Author Organization [facility] Care Team Providers Care Traffic Inspector Name Role Phone KOLBY KIRK Admitting Unavailable KOLBY KIRK Attending Unavailable MISC, DR PETERSON Primary Care Unavailable KOLBY KIRK Consulting Unavailable DALJIT RO Consulting Unavailable MISC, DR PETERSON Primary Care Unavailable HENNY WEBBER Admitting Unavailable LAWANDA, HENNY West Attending Unavailable WEST, DR TEODORO Sears Consulting Unavailable KATKOHENNY Consulting Unavailable TIMMIS, DR WHITMAN Admitting Unavailable [...] Unavailable ANGÉLICA, DR ALEGRIA Primary Care Unavailable HOODSANNA KOTHARI Consulting Unavailable HEMMER, DR CASH Gomes Consulting Unavailable PIETER SMITH Attending Unavailable HEMCASH MUELLER Referring Unavailable TASHI BANKS Attending Unavailable HEMMERCASH Referring Unavailable KELBLEYVERNELL Attending Unavailable HEMMERCASH Referring Unavailable KELVERNELL KENNEY Attending Unavailable HEMMERCASH Referring Unavailable SHANEL STARK Attending Unavailable HEMMERCASH Referring Unavailable SHONDA PORTER Attending Unavailable HEMMERCASH Referring Unavailable HEMMERCASH Attending Unavailable PIETER SMITH Attending Unavailable HEMCASH MUELLER Referring Unavailable PIETER SMITH Attending Unavailable HEMCASH MUELLER Referring Unavailable HEMMERCASH Attending Unavailable HEMMERCASH Attending Unavailable Allergies Allergy Classification Reported Allergen(s) Allergy Type Date of Onset Reaction(s) Facility (1 source) cefdinir Drug Allergy 5 [facility] Repository (2 sources) Penicillins Drug allergy (disorder) 3 Hives [facility] (2 sources) predniSONE Drug Allergy 2 Heartburn [facility] (1 source) traMADol Drug Allergy 3 [facility] (1 source) Pertussis Immune Globulin Drug allergy (disorder) 3 [facility] (1 source) spinach allergenic extract Drug Allergy 4 Hives [facility] (1 source) bee venom protein (honey bee) Allergy to substance 4 Anaphylaxis [facility] (1 source) diphtheria,pert ussis (acellular),te Allergy to substance 4 Unknown Reaction [facility] Medications Current Medications Medication Drug Class(es) Dates Sig (Normalized) Sig (Original) [id number] 200 actuat albuterol 0.09 mg/actuat metered dose inhaler (2 sources) beta2-Adrenergic Agonist Start: 06-20-2023 take 2.5 mg by inhalation every four to six hours Albuterol Sulfate Active 2.5 MG INHALATION EVERY 4-6 HOURS 90 30 June 20, 2023 12:00am Start: 06-20-2023 take 1 puff(s) by in halation every six hours Albuterol Sulfate Active 2 PUFF INHALATION Every 6 hours June 20, 2023 12:00am ARIPiprazole 2 mg oral tablet (1 source) Atypical Antipsychotic Start: 06-20-2023 take 2 mg by mouth once daily Aripiprazole Active 2 MG PO Daily June 20, 2023 12:00am ciclopirox 10 mg/ml medicated shampoo (2 sources) Start: 06-20-2023 Ciclopirox Act deo TOPICAL June 20, 2023 12:00am Start: 06-20-2023 Ciclopirox Act deo 1 APPLIC TOPICAL Daily June 20, 2023 12:00am Diclofenac (1 source) Nonsteroidal Anti-inflammatory Drug Start: 06-20-2023 Diclofenac Sodium Active TOPICAL June 20, 2023 12:00am doxycycline monohydrate 100 mg oral tablet (1 source) Tetracycline-class Drug Start: 06-20-2023 take 100 mg by mouth twice daily Doxycycline Monohydrate Active 100 MG PO Twice daily 19 01June 20, 2023 12:00am [id number] 0.3 ml EPINEPHrine 1 mg/ml auto-injector (1 source) alpha-Adrenergic Agonist, beta-Adrenergic Agonist, Catecholamine Start: 06-20-2023 inject 1 mL by subcutaneous injection once Epinephrine Active 0.3 ML SUBCUT Once June 20, 2023 12:00am ibuprofen 800 mg oral tablet (1 source) Nonsteroidal Anti-inflammatory Drug Start: 06-20-2023 take 800 mg by mouth every six hours Ibuprofen Active 800 MG PO Every 6 hours June 20, 2023 12:00am mupirocin 0.02 mg/mg topical ointment (1 source) RNA Synthetase Inhibitor Antibacterial Start: 06-20-2023 Mupirocin Active 1 APPLIC TOPICAL Twice daily 21 10June 20, 2023 12:00am Problems Active Problems Problem Classification Problem Date Documented Da te Episodic/Chronic Anxiety disorders (2 sources) Anxiety; Translations: [Anxiety disorder, unspecified] 06-20-2023 Chronic Asthma (3 sources) Unspecified asthma, uncomplicated; Translations: [Asthma] Onset: 01-02-2022 06-20-2023 Chronic Cardiac dysrhythmias (2 sources) Irregular heart beat; Translations: [Cardiac arrhythmia, unspecified] 06-20-2023 Chronic E Codes: Struck by; against (1 source) Striking against or struck by other objects, initial encounter; Translations: [STRIKING AGNST/STRUCK OTH OBJ INIT] Onset: 01-02-2022 Episodic Mood disorders (2 sources) Depressive disorder; Translations: [Depression] 06-20-2023 Chronic Osteoarthritis (2 sources) Unspecified osteoarthritis, unspecified site; Translations: [Arthritis] Onset: 01-02-2022 06-20-2023 Chronic Other acquired deformities (2 sources) Scoliosis, unspecified; Translations: [Scoliosis [and kyphoscoliosis], idiopathic] Onset: 04-11-2021 06-20-2023 Chronic Other acquired deformities (1 source) Scoliosis deformity of spine; Translations: [Scoliosis, unspecified] 06-20-2023 Chronic Other connective tissue disease (1 source) Triggering of digit; Translations: [Trigger finger, unspecified finger] 06-20-2023 Episodic Other connective tissue disease (1 source) Trigger finger, unspecified finger; Translations: [Trigger finger (acquired)] 06-20-2023 Episodic Other nervous system disorders (1 source) Carpal tunnel syndrome; Translations: [Carpal tunnel syndrome, unspecified upper limb] 06-20-2023 Chronic Other non-traumatic joint disorders (3 sources) Pain in right ankle and joints of right foot; Translations: [PAIN IN RIGHT ANKLE] Onset: 12-31-2021 Episodic Other upper respiratory infections (2 sources) Maxillary sinusitis; Translations: [Chronic maxillary sinusitis] 06-20-2023 Chronic Substance-related disorders (1 source) Nicotine dependence, cigarettes, [...] by: Santy RO Date: 2021-12-31 22:43 Normal [facility] CT NECK [facility] W CONon 06-14-[address] W CON EXAMINATION: [...] by: LIZANDRO DELACRUZ Date: 2021-09-13 17:01 Normal [facility] XR HIP LT 2 3V W PELVISon [...] by: SANNA HOOD Date: 2021-04-18 11:23 Normal [facility] Vital Signs Date Time Vital Sign Value Performing Clinician Bushra sanchez 06-20-2023 14:49-0400 Body height 165.[address] [facility] 06-20-2023 14:49-0400 Body mass index (BMI) [Ratio] 29.7 kg/m2 [facility] 06-20-2023 14:49-0400 Body weight 81.[address] [facility] 06-20-2023 14:49-0400 Diastolic blood pressure 80 mm[Hg] [facility] 06-20-2023 14:49-0400 Heart rate 78 /min [facility] 06-20-2023 14:49-0400 SaO2% (BldA) [Mass fraction] 98 % [facility] 06-20-2023 14:49-0400 Systolic blood pressure 116 mm[Hg] [facility] Encounters Encounter Date Encounter Type Care Provider Facility Start: 06-20-2023 End: 06-20-2023 ambulatory [facility] Work Phone: Start: 06-20-2023 End: 06-20-2023 Patient encounter procedure [facility] Work Phone: Start: 06-06-2023 End: 06-06-2023 ambulatory CASH Eliseo HEMERVIN Not Available Start: 05-23-2023 End: 05-23-2023 ambulatory CASH Eliseo HEMMER Not Available Start: 04-16-2023 End: 04-17-2023 ambulatory SHONDA PORTER Not Available Start: 04-13-2023 End: 04-13-2023 ambulatory SHANEL STARK Not Available Start: 04-11-2023 End: 04-11-2023 ambulatory VERNELL CL Not Available Start: 04-06-2023 End: 04-07-2023 ambulatory VERNELL ESTIVENY Not Available Start: 04-04-2023 End: 01-03-2024 ambulatory TASHI BANKS Not Available Start: 03-30-2023 End: 03-30-2023 ambulatory PIETER Fernandez LUIS Not Available Start: 03-23-2023 End: 03-23-2023 ambulatory PIETER J LUIS Not Available Start: 03-16-2023 End: 03-16-2023 ambulatory [...] End: 04-07-[address] DOCTOR CASTILLO Facility:[facility] Plan of Treatment Date Care Activity Detail Author Start: 06-20-2023 Patient referral [facility] Work Phone: Patient referral [facility] Work Phone: Payers Date Payer Category Payer Medicaid [id number] 1985 Unknown [id number] .16.84 [id number] 1985 Unknown [id number] .16.84 0.1.919297.3.579.2.593 1985 Unknown [id number] .16.84 0.1.248546.3.579.2.593 1985 Unknown [id number] .16.84 0.1.276598.3.579.2.593 1985 Unknown [id number] .16.84 0.1.813681.3.579.2.593 1985 Unknown [id number] .16.84 0.1.582675.3.579.2.1259 1985 Unknown [id number] 2.16.84 0.1.022822.3.579.2.1259 1985 Unknown [id number] 2.16.84 0.1.027384.3.579.2.1259 1985 Unknown [id number] 2.16.84 0.1.397075.3.579.2.1259 1985 Unknown [id number] 2.16.84 0.1.498034.3.579.2.9 1985 Unknown [id number] 2.16.84 0.1.772262.3.579.2.1259 1985 Unknown [id number] 2.16.840 .1.381746.3.579.2.9 1985 Unknown [id number] 2.16.840 .1.701096.3.579.2.9 1985 Unknown [id number] 2.16.840 .1.786060.3.579.2.9 1985 Unknown [id number] 2.16.840 .1.419906.3.579.2.9 1985 Unknown [id number] 2.16.840 .1.330531.3.579.2.1259 1959 Unknown [id number] Medicaid [facility] [id number] Social History Date Type Detail Facility Start: [facility]-20-2023 [facility] Start: 1985 Sex Assigned At Female F [facility] Hospital Discharge instructions 06-20-2023 Note Date & Type Note Facility 06-20-2023 Hospital Discharg e instructions Ambulatory OrdersReferral to Orthopedic Surgery Time Frame: 06/20/23, Location: None [facility] Work Phone: Clinical Note 01-09-2022 Note Date & Type [...] authenticated by: LIZANDRO DELACRUZ Date: 2022-01-09 16:12 [facility] Clinical Note 04-07-2021 Note Date & Type Note Facility 04-07-2021 Note PROCEDURE: XR FEMUR LT COMPARISON: None. HISTORY: Unspecified fall FINDINGS: BONES:No fracture, acute abnormality, or significant arthropathy. SOFT TISSUES:Negative. No visible soft tissue swelling. EFFUSION:None visible. OTHER: Negative. IMPRESSION: No acute abnormality Electronically authenticated by: TEODORO WHITLEY Date: 2021-04-07 09:14 [facility] Evaluation note Note Date & Type Note Facility Evaluation note Diagnosis Onset Date Anxiety acute Asthma acute Depression acute Irregular heart beat acute Maxillary sinusitis acute Scoliosis acute Trigger finger of right hand [facility] Work Phone: Summary Purpose Family History Relationship Condition Age at Onset Recorded Date/T donna Not Specified Seizure Unknown Not Specified Diabetes mellitus Unknown Hypertension Unknown Anxiety Unknown Depression Unknown Advance Directives Advance Directive Response Recorded Date/ Time Advance Directives No June 07 10:38am Chief Complaint and Reason for Visit Chief Complaint establish - trigger finger Reason for Visit Anxiety Asthma Depression Irregular heart beat Maxillary sinusitis Scoliosis Trigger finger of right hand Additional Source Comments INFORMATION SOURCE (unrecogn ized section and content) DATE CREATED AUTHOR 01/10/2022 [facility] DATE CREATED AUTHOR 'S ORGANIZ ATION 06/07/2023 [facility] [employer] Care Teams (unrecognized sec tion and content) Team Status: Active Member Role Status Dates Penelope Garcia APRN REDUCTION FURNACE OPERATOR-C Primary Care Provider Active Team Status: Inactive Member Role Status Dates Penelope Garcia APRN REDUCTION FURNACE OPERATORMirtha Primary Care Provider, Attending Provider Active Start: June 20, 2023 End: June 20, 2023 Goals (unrecognized section and content) Goals may be documented in a n alternate section FOR RECORDS PERTAINING TO PATIENTS WHO ARE [...] BE BASED ON THE PRIMARY CLINICAL RECORDS. [employer] [facility]. provides no warranty or guarantee of the accuracy or completeness of information in this document.
== END 2023-07-02 09:00 | disposition home or self-care (01) ==
LOC: EC 08:59
PROVIDERS: Family Provider Physician Assistant; PCP Physician Assistant; Visit Provider Orthopaedic Surgery
DX: M79.641 Pain in right hand (principal)
CPT/HCPCS: 73130

== ENCOUNTER 2023-07-03 13:54 | Outpatient (RCR) | payer OTHER, SELFPAY | END 2023-08-31 09:08 | disposition home or self-care (01) | LOC: OT 13:54 | PROVIDERS: Family Provider Physician Assistant; PCP Physician Assistant; Visit Provider Orthopaedic Surgery | DX: M65.341 Trigger finger, right ring finger (principal); M65.331 Trigger finger, right middle finger; M65.351 Trigger finger, right little finger | CPT/HCPCS: 97022; 97140; 97165; 97530 ==

== ENCOUNTER 2023-10-01 18:09 | Emergency (ER) | payer OTHER, SELFPAY ==
[2023-10-01 18:14] VITALS: BP 149/119; PULSE 95; TEMP 37; O2SAT 98; BMI 30.3
--- NOTE | 2023-10-01 18:15 | ED_ITS ---
HPI - Allergic Reaction General Chief complaint: Allergic Reaction Stated complaint: Bee Sting Time Seen by Provider: 10/01/23 18:12 History of Present Illness HPI narrative: Patient is a 38-year-old female who presents to the emergency department after a code purple was called outside of the cardio hallway. Patient was apparently stung by a bee Just prior to arrival in the left middle finger. She has a history of bee sting allergy and gave herself an epi injection immediately prior to arrival to the hospital. She drove herself here but states she collapsed outside of the cardio hallway of the hospital walking in the hospital, she states her legs got weak. She was feeling mildly short of breath. She notes that she has not had any lip swelling, tongue swelling, diffuse rash or hives. She gave herself an epi injection to the right upper thigh. She reports numbness to the left middle finger, she is noted to be squeezing her left middle finger to stop the venom . She is not concerned for . Related Data Home Medications ?Medication ?Instructions ?Recorded ?Confirmed albuterol sulfate 90 mcg/actuation 2 puff inhalation Q6H PRN wheezing 11/15/22 10/01/23 aerosol inhaler ciclopirox 0.77 % topical cream 1 applic topical Q12H 11/15/22 04/16/23 diclofenac sodium 1 % topical gel 2 g topical QID 11/15/22 04/16/23 epinephrine 0.3 mg/0.3 mL 0.3 ml subcut ONCE PRN allergic 11/15/22 10/01/23 injection, auto-injector reaction melatonin 5 mg capsule 5 mg PO QPM 11/15/22 04/16/23 ciclopirox 1 % shampoo 5 ml topical QWEEK 04/16/23 04/16/23 Previous Rx's ?Medication ?Instructions ?Recorded naproxen sodium 550 mg tablet 550 mg PO BID PRN pain #10 tabs 04/16/23 lfkxyutdvkhlsge-efgqiqocfsnlrjv-XO 10 ml PO Q6H PRN cold symptoms 05/16/23 2 mg-30 mg-10 mg/5 mL oral syrup #200 mL (Bromfed DM) famotidine 20 mg tablet (Pepcid) 20 mg PO BID #10 tabs 10/01/23 hydroxyzine HCl 25 mg tablet 25 mg PO Q6H PRN itching #20 tabs 10/01/23 Allergies Allergy/AdvReac Type Severity Reaction Status Date / Time Penicillins Allergy Severe Verified 05/16/23 21:00 tramadol Allergy Severe Verified 05/16/23 21:00 bees Allergy Severe Uncoded 05/16/23 21:00 whooping cough vaccine AdvReac Severe itching Uncoded 05/16/23 21:00 Review of Systems ROS Constitutional Denies: fever or chills Ears, nose, mouth, and throat Denies: throat pain or nasal congestion Respiratory Reports: shortness of breath; Denies: cough Gastrointestinal Denies: nausea or vomiting Musculoskeletal Denies: back pain Integumentary/Breast Denies: rash Neurological Denies: headache Hematologic/Lymphatic Denies: easy bruising or easy bleeding PFSH PFSH Social History Smoking status: Former smoker Exam Narrative Exam Narrative: Gen.: Awake, alert, in no distress Head: Normocephalic, atraumatic ENT: Moist mucous membranes, No swelling of the lips or tongue with airway widely open and patent. Clear speech Respiratory: No respiratory distress, lungs clear bilaterally; No wheezing or rhonchi Cardio: Regular rate and rhythm Extremities: Moves extremities equally, No extremity swelling noted, 1 mm puncture wound to the palmar aspect of the left middle finger, no retained stinger noted Psych: Normal mood and affect Neuro: No focal neuro deficit Skin: Warm, dry, intact MDM - Allergic Reaction MDM Narrative Medical decision making narrative: At time of my evaluation, patient has stable vital signs, she is awake and alert. She did not have a syncopal episode in the parking lot, she defines collapsing as her legs getting weak and falling to the floor. She has no injuries in the ER. She has no signs of anaphylaxis at this time. She already gave herself an epi injection. She is currently on a Medrol Dosepak from her primary care provider that she started 4 days ago. No indication for an additional steroid burst at this time. She was given an albuterol breathing treatment, Benadryl, Pepcid, Solu-Medrol in the emergency department and was given the Ativan she was visibly anxious and hyperventilating. Patient was observed in the emergency department for over an hour, she maintained stable vital signs with normal oxygenation, no tachycardia or evidence of anaphylaxis. She is discharged home to finish her Medrol Dosepak. She was given Atarax and Pepcid. Follow-up with PCP and return to the ER if symptoms change or worsen. She was also given a prescription to refill her EpiPen so she has that for home. SHARED APC VISIT, PHYSICIAN ATTESTATION: [id number] I performed a substantive part of the MDM during the patient?s E/M visit. I personally evaluated and examined the patient. I personally made or approved the documented management plan and acknowledge its risk of complications. Medical Records Attestation: I reviewed the patient's medical records. Discharge Plan Discharge Stand Alone Forms: Portal Instructions Chief Complaint: Allergic Reaction Clinical Impression: Allergic reaction, Bee sting Patient Disposition: Home, Self-Care Time of Disposition Decision: 19:21 Condition: Good Prescriptions / Home Meds: New famotidine [Pepcid] 20 mg tablet 20 mg PO BID Qty: 10 0RF hydroxyzine HCl 25 mg tablet 25 mg PO Q6H PRN (Reason: itching) Qty: 20 0RF No Action albuterol sulfate 90 mcg/actuation HFA aerosol inhaler 2 puff INHALATION Q6H PRN (Reason: wheezing) ciclopirox 0.77 % cream 1 applic TOPICAL Q12H epinephrine 0.3 mg/0.3 mL auto-injector 0.3 ml subcut ONCE PRN (Reason: allergic reaction) diclofenac sodium 1 % gel 2 g topical QID Rx Instructions: apply to single elbow, wrist or hand; for hand includes palm/fingers/back of hand melatonin 5 mg capsule 5 mg PO QPM hrjccjvkoshqwid-lwgtwgnya-DF [Bromfed DM] 2-30-10 mg/5 mL syrup 10 ml PO Q6H PRN (Reason: cold symptoms) Qty: 200 0RF ciclopirox 1 % shampoo 5 ml TOPICAL QWEEK naproxen sodium 550 mg tablet 550 mg PO BID PRN (Reason: pain) Qty: 10 0RF Print Language: Setswana Instructions: Insect Bite or Sting (ED), General Allergic Reaction (ED) Referrals: CASH DANIEL [Family Provider] - 1 week
--- OUTSIDE RECORDS SUMMARY | 2023-10-01 18:24 | XMS_ITS | CCD ---
Author Organization [facility] CliniSytx Care Team Providers Care Furs Salesperson Name Role Phone KOLBY KIRK Admitting Unavailable KOLBY KIRK Attending Unavailable MISC, DR PETERSON Primary Care Unavailable KOLBY KIRK Consulting Unavailable DALJIT RO Consulting Unavailable MISC, DR PETERSON Primary Care Unavailable HENNY WEBBER Admitting Unavailable KATKO, HENNY West Attending Unavailable WEST, DR TEODORO Sears Consulting Unavailable KATKOHENNY Consulting Unavailable TIMMIS, DR WHITMAN Admitting Unavailable TIMMIS, DR WHITMAN Attending Unavailable ANGÉLICA, DR ALEGRIA Primary Care Unavailable TIMMIS, DR WHITMAN Consulting Unavailable ZIEBER, DR LIZANDRO Beriros Consulting Unavailable HEMMER, DR CASH Gomes Consulting [...] HEMMERCASH Referring Unavailable SHONDA PORTER Attending Unavailable HEMCASH MUELLER Referring Unavailable HEMMERCASH Attending Unavailable PIETER SMITH Attending Unavailable HEMCASH MEULLER Referring Unavailable PIETER SIMTH Attending Unavailable HEMCASH MUELLER Referring Unavailable HEMCASH MUELLER Attending Unavailable HEMCASH MUELLER Attending Unavailable ANJELICA MARTINS Primary Care Physician [phone] PENELOPE GARCIA Attending Unavailab le ROHRBACHERPENELOPE Admitting Unavailab le Allergies Allergy Classification Reported Allergen(s) Allergy Type Date of Onset Reaction(s) Facility (1 source) cefdinir Drug Allergy 5 [facility] (4 sources) Penicillins Drug allergy (disorder) 3 Hives [facility] (4 sources) predniSONE Drug Allergy 2 Heartburn [facility] (1 source) traMADol Drug Allergy 3 [facility] (1 source) Pertussis Immune Globulin Drug allergy (disorder) 3 [facility] (5 sources) spinach allergenic extract; Translations: [Spinach (substance)] Drug Allergy 4 Airway constriction (finding) [facility] (3 sources) bee venom protein (honey bee) Allergy to substance 4 Anaphylaxis [facility] (3 sources) diphtheria,pert ussis (acellular),te Allergy to substance 4 Unknown Reaction [facility] (2 sources) Bee/Wasp/Ant venom; Translations: [Bee Stings] Drug allergy [facility] (2 sources) Penicillin; Translations: [penicillin] Drug Allergy [facility] (2 sources) Pertussis Vaccine; Translations: [Whooping-cough vaccine] Drug Allergy Airway constriction (finding) [facility] (2 sources) Sodium Bicarbonate; Translations: [Baking soda] Drug Allergy Red color (finding) [facility] Medications Current Medications Medication Drug Class(es) Dates Sig (Normalized) Sig (Original) Acetaminophen / HYDROcodone (1 source) Opioid Agonist Start: 06-13-2011 Vicodin 500 mg-5 mg Tab 1 tab(s), Oral, q4hr as needed for pain, 10 tab(s), Refill(s) 0, Take one tab by mouth every four hours as needed for pain Start Date: 06/13/11 Status: Ordered [id number] 200 actuat albuterol 0.09 mg/actuat metered dose inhaler (6 sources) beta2-Adrenergic Agonist Start: 06-20-2023 take 2.5 mg by inhalation every four to six hours Albuterol Sulfate Active 2.5 MG INHALATION EVERY 4-6 HOURS June 20, 2023 12:00am Start: 06-20-2023 take 1 puff(s) by in halation every six hours Albuterol Sulfate Active 2 PUFF INHALATION Every 6 hours June 20, 2023 12:00am ARIPiprazole 2 mg oral tablet (3 sources) Atypical Antipsychotic Start: 06-20-2023 take 2 mg by mouth once daily Aripiprazole Active 2 MG PO Daily June 20, 2023 12:00am ciclopirox 10 mg/ml medicated shampoo (6 sources) Start: 06-20-2023 Ciclopirox Act deo TOPICAL June 20, 2023 12:00am Start: 06-20-2023 Ciclopirox Act deo 1 APPLIC TOPICAL Daily June 20, 2023 12:00am Diclofenac (3 sources) Nonsteroidal Anti-inflammatory Drug Start: 06-20-2023 Diclofenac Sodium Active TOPICAL June 20, 2023 12:00am doxycycline monohydrate 100 mg oral tablet (3 sources) Tetracycline-class Drug Start: 06-20-2023 take 100 mg by mouth twice daily Doxycycline Monohydrate Active 100 MG PO Twice daily 19 01June 20, 2023 12:00am [id number] 0.3 ml EPINEPHrine 1 mg/ml auto-injector (3 sources) alpha-Adrenergic Agonist, beta-Adrenergic Agonist, Catecholamine Start: 06-20-2023 inject 1 mL by subcutaneous injection once Epinephrine Active 0.3 ML SUBCUT Once June 20, 2023 12:00am fluticasone / salmeterol (1 source) Corticosteroid, beta2-Adrenergic Agonist Start: 12-07-2009 take 1 puff(s) by inhalation once daily Advair 250 mcg-50 mcg Powder 1 puff(s), Inhalation, Daily, Refill(s) 0 Start Date: 12/07/09 Status: Ordered ibuprofen 800 mg oral tablet (3 sources) Nonsteroidal Anti-inflammatory Drug Start: 06-20-2023 take 800 mg by mouth every six hours Ibuprofen Active 800 MG PO Every 6 hours June 20, 2023 12:00am methylPREDNISolone 4 mg oral tablet (1 source) Corticosteroid Start: 09-27-2023 take 1 tablet by mouth once Methylprednisolone (Medrol (Dominick)) 4 mg tablets,dose pack Active 0 PO per package directions 20 09September 27, 2023 12:00am PO PER PKG DIR Singulair (1 source) Leukotriene Receptor Antagonist Start: 12-07-2009 Singulair Oral, Daily, Refills(s) 0 Start Date: 12/07/09 Status: Ordered mupirocin 0.02 mg/mg topical ointment (3 sources) RNA Synthetase Inhibitor Antibacterial Start: 06-20-2023 Mupirocin Active 1 APPLIC TOPICAL Twice daily 21 10June 20, 2023 12:00am naproxen 500 mg oral tablet (2 sources) Nonsteroidal Anti-inflammatory Drug Start: 06-13-2011 take 1 tablet by mouth twice daily as needed for pain Naprosyn 500 mg Tab 500 mg = 1 tab(s), Oral, BID, PRN for pain, # 20 tab(s), Refills(s) 0 Start Date: 06/22/15 Status: Ordered ProAir HFA 90 mcg/inh inhalation aerosol (1 source) Start: 12-07-2009 take 2 puff(s) by inhalation four times daily ProAir HFA 90 mcg/inh inhalation aerosol 2 puff(s), Inhalation, QID, Refill(s) 0 Start Date: 12/07/09 Status: Ordered Problems Active Problems Problem Classification Problem Date Documented Da te Episodic/Chronic Anxiety disorders (5 sources) Anxiety; Translations: [Anxiety disorder, unspecified] 06-20-2023 Chronic Asthma (8 sources) Unspecified asthma, uncomplicated; Translations: [Asthma] Onset: 01-02-2022 06-20-2023 Chronic Cardiac and circulatory congenital anomalies (4 sources) Congenital heart disease; 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, unspecified] 08-06-2023 Chronic Cardiac dysrhythmias (7 sources) Irregular heart beat; Translations: [Cardiac arrhythmia, unspecified] 06-20-2023 Chronic Conduction disorders (1 source) Conduction disorder of the heart 06-13-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 Deficiency and other anemia (1 source) Anemia 06-13-2013 Episodic E Codes: Struck by; against (1 source) Striking against or struck by other objects, initial encounter; Translations: [STRIKING AGNST/STRUCK OTH OBJ INIT] Onset: 01-02-2022 Episodic Early or threatened labor (1 source) Premature labor 06-13-2013 Episodic Heart valve disorders (1 source) Heart murmur 06-13-2013 Episodic Miscellaneous mental health disorders (2 sources) Psychogenic headache; 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] 08-07-2023 Chronic Mood disorders (5 sources) Depressive disorder; Translations: [Depression] 06-20-2023 Chronic Osteoarthritis (4 sources) Unspecified osteoarthritis, unspecified site; Translations: [Arthritis] Onset: 01-02-2022 06-20-2023 Chronic Other acquired deformities (5 sources) Scoliosis, unspecified; Translations: [Scoliosis [and kyphoscoliosis], idiopathic] Onset: 04-11-2021 06-20-2023 Chronic Other acquired deformities (3 sources) Scoliosis deformity of spine; Translations: [Scoliosis, unspecified] 06-20-2023 Chronic Other acquired deformities (1 source) Deformity of lower limb; Translations: [Unspecified acquired deformity of right thigh] 08-07-2023 Episodic Other acquired deformities (1 source) Unspecified acquired deformity of right thigh; Translations: [Other acquired deformity of other parts of limb] 08-06-2023 Episodic Other bone disease and musculoskeletal deformities (1 source) 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 Other congenital anomalies (1 source) 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 Other connective tissue disease (3 sources) Triggering of digit; Translations: [Trigger finger, unspecified finger] 06-20-2023 Episodic Other connective tissue disease (3 sources) Trigger finger, unspecified finger; Translations: [Trigger finger (acquired)] 06-20-2023 Episodic Other nervous system disorders (4 sources) Carpal tunnel syndrome; Translations: [Carpal tunnel syndrome, unspecified upper limb] 06-20-2023 Chronic Other non-traumatic joint disorders (3 sources) Pain in right ankle and joints of right foot; Translations: [PAIN IN RIGHT ANKLE] Onset: 12-31-2021 Episodic Other skin disorders (1 source) Eruption; Translations: [Rash and other nonspecific skin eruption] 09-27-2023 Episodic Other skin disorders (1 source) Rash and other nonspecific skin eruption; Translations: [Rash and other nonspecific skin eruption] 09-27-2023 Episodic Other upper respiratory infections (5 sources) Maxillary sinusitis; Translations: [Chronic maxillary sinusitis] 06-20-2023 Chronic Substance-related disorders (1 source) Nicotine dependence, cigarettes, uncomplicated; Translations: [NICOTINE DEPEND CIGARETTES UNCOMP] Onset: 01-02-2022 Chronic Superficial injury; contusion (2 sources) Contusion of right ankle, initial encounter; Translations: [Contusion of left lower leg, initial encounter] Onset: 04-11-2021 Episodic Unclassified (1 source) Streptococcus agalactiae (organism) 08-11-2009 Past or Other Problems Problem Classification Problem [...] Value Interpretation Reference Range Facil ity XR Spine Scoliosis 1 viewon 08-16-2023 XR Spine Scoliosis 1 view Exam Date/Time: 08/14/2023 16:31 EDT Reason for Exam: M41.9 Report IMPRESSION: LEVOSCOLIOSIS OF THE THORACIC SPINE AND DEXTROCURVATURE OF THE THORACOLUMBAR SPINE DETAILED. EXAMINATION: XR Spine Scoliosis 1 view HISTORY: Mid and lower back pain COMPARISON: None available TECHNIQUE: Frontal view of the thoracic and lumbar spine FINDINGS: There is levoscoliosis of the upper and mid thoracic spine with Chandler angle of approximately 14 degrees when measured from T2 through T9. There is dextrocurvature of the lower thoracic and upper lumbar spine with Chandler angle of approximately 7 degrees when measured from the T11-L3 levels. The thoracic and lumbar vertebral body heights are maintained as are the intervertebral disc heights. Visualized lungs are clear. Nonobstructive bowel gas pattern. Ordering Provider: PENELOPE GARCIA FINAL REPORT Dictated: 08/16/2023 4:27 pm Wesley Saenz DO Signed (Electronic Signature): 08/16/2023 4:27 pm Signed by: Wesley Saenz DO Transcribed by: DELILAH Technologist: CNK Technical Comments Radiation Dose: Ka,r in mGy = na DAP = na Normal [facility] Consent for Treatmenton 07-31 Consent for Treatment [id number] 0TIFF Normal [facility] Physician Orderon 08-14-2023 Physician Order [id number] 00TIFF Normal [facility] XR ANKLE RT MIN 3 VIEWSon XR [...] by: Santy RO Date: 2021-12-31 22:43 Normal [facility] CT NECK ST W CONon 2 CT [...] submandibular, and thyroid glands. LYMPH NODES: No pathological-appearing or enlarged lymph nodes. VASCULATURE: No suspicious [...] by: LIZANDRO DELACRUZ Date: 2021-09-13 17:01 Normal [facility] XR HIP LT 2 3V W [...] by: SANNA HOOD Date: 2021-04-18 11:23 Normal [facility] Vital Signs Date Time Vital Sign Value Performing Clinician Bushra sanchez 09-27-2023 13:58-0400 Body height 165.1 cm [facility] 09-27-2023 13:58-0400 Body mass index (BMI) [Ratio] 30.4 kg/m2 [facility] 09-27-2023 13:58-0400 Body weight 83.06 kg [facility] 09-27-2023 13:58-0400 Diastolic blood pressure 76 mm[Hg] [facility] 09-27-2023 13:58-0400 Heart rate 70 /min [facility] 09-27-2023 13:58-0400 Respiratory rate 12 /min [facility] 09-27-2023 13:58-0400 Systolic blood pressure 122 mm[Hg] [facility] 08-06-2023 15:26-0400 Body height 165.1 cm [facility] 08-06-2023 15:26-0400 Body mass index (BMI) [Ratio] 29.7 kg/m2 [facility] 08-06-2023 15:26-0400 Body temperature 97.5 [degF] [facility] 08-06-2023 15:26-0400 Body weight 81.19 kg [facility] 08-06-2023 15:26-0400 Diastolic blood pressure 74 mm[Hg] [facility] 08-06-2023 15:26-0400 Heart rate 71 /min [facility] 08-06-2023 15:26-0400 Respiratory rate 18 /min [facility] 08-06-2023 15:26-0400 SaO2% (BldA) [Mass fraction] 98 % [facility] 08-06-2023 15:26-0400 Systolic blood pressure 110 mm[Hg] [facility] 06-20-2023 14:49-0400 Body height 165.1 cm [facility] 06-20-2023 14:49-0400 Body mass index (BMI) [Ratio] 29.7 kg/m2 [facility] 06-20-2023 14:49-0400 Body weight 81.19 kg [facility] 06-20-2023 14:49-0400 Diastolic blood pressure 80 mm[Hg] [facility] 06-20-2023 14:49-0400 Heart rate 78 /min [facility] 06-20-2023 14:49-0400 SaO2% (BldA) [Mass fraction] 98 % [facility] 06-20-2023 14:49-0400 Systolic blood pressure 116 mm[Hg] [facility] Encounters Encounter Date Encounter Type Care Provider Facility Start: 09-27-2023 End: 09-27-2023 ambulatory [facility] Work Phone: Start: 09-27-2023 End: 09-27-2023 Patient encounter procedure [facility] Work Phone: Start: 08-14-2023 End: 08-15-2023 ambulatory PENELOPE GARCIA Facility:[facility] Start: 08-14-2023 End: 08-14-2023 Patient encounter procedure PENELOPE GARCIA [facility] Start: 08-06-2023 End: 08-06-2023 ambulatory [facility] Work Phone: Start: 08-06-2023 End: 08-06-2023 Patient encounter procedure [facility] Work Phone: Start: 06-20-2023 End: 06-20-2023 ambulatory [facility] Work Phone: Start: 06-20-2023 End: 06-20-2023 Patient encounter procedure [facility] Work Phone: Start: 06-06-2023 End: 06-06-2023 ambulatory CASH DANIEL Not Available Start: 05-23-2023 End: 05-23-2023 ambulatory CASH DANIEL Not Available Start: 04-16-2023 End: 04-17-2023 ambulatory SHONDA PORTER Not Available Start: 04-13-2023 End: 04-13-2023 ambulatory SHANEL STARK Not Available Start: 04-11-2023 End: 04-11-2023 ambulatory VERNELL SMALLWOOD Not Available Start: 04-06-2023 End: 04-07-2023 ambulatory VERNELL SMALLWOOD Not Available Start: 04-04-2023 End: 04-04-2023 ambulatory TASHIMAMADOU BANKS Not Available Start: 03-30-2023 End: 03-30-2023 [...] End: 04-07-[address] DOCTOR CASTILLO Facility:[facility] Procedures Date Procedure Procedure Detail Performing Clinician History of decompres fly of median nerve History of carpal tunnel surgery of right wrist Ligation of fallopian tube J DONNA FRANCISCORBACHER right forearm PENELOPE MARYAMRB ACHER Plan of Treatment Date Care Activity Detail Author Start: 06-20-2023 Patient referral [facility] Work Phone: Patient referral [facility] Work Phone: [facility] Payers Date Payer Category Payer Medicaid [id number] 1985 Unknown [id number] 2.16.84 [id number] 1985 Unknown [id number] 2.16.84 0.1.129710.3.579.2.593 1986 Unknown [id number] 2.16.84 0.1.034601.3.579.2.593 1986 Unknown [id number] 2.16.84 0.1.079935.3.579.2.593 1986 Unknown [id number] 2.16.84 0.1.403068.3.579.2.593 1986 Unknown [id number] 2.16.84 0.1.693126.3.579.2.1259 1986 Unknown [id number] 2.16.84 0.1.944746.3.579.2.1259 1986 Unknown [id number] 2.16.84 0.1.708985.3.579.2.1259 1986 Unknown [id number] 2.16.84 0.1.668650.3.579.2.1259 1986 Unknown [id number] 2.16.84 0.1.170082.3.579.2.1259 1986 Unknown [id number] 2.16.84 0.1.351399.3.579.2.1259 1986 Unknown [id number] 2.16.840 .1.479542.3.579.2.1259 1986 Unknown [id number] 2.16.840 .1.814397.3.579.2.9 1986 Unknown [id number] 2.16.840 .1.153935.3.579.2.1259 1986 Unknown [id number] 2.16.840 .1.673149.3.579.2.9 1986 Unknown [id number] 2.16.840 .1.275889.3.579.2.1259 1986 Unknown [id number] 2.16.8 40.1.599058.3.579.2.727 1959 Unknown [id number] Medicaid [facility] [id number] Social History Date Type Detail Facility [facility]: [facility] Start: 1985 Sex Assigned At Female F [facility] Tobacco smoking status [facility] Hospital Discharge instructions 06-20-2023 Note Date & Type Note Facility 06-20-2023 Hospital Discharg e instructions Ambulatory OrdersReferral to Orthopedic Surgery Time Frame: 06/20/23, Location: None Selected [facility] Work Phone: Clinical Note 01-09-2022 Note Date [...] authenticated by: LIZANDRO DELACRUZ Date: 2022-01-09 16:12 [facility] Clinical Note 04-07-2021 Note Date & Type Note Facility 04-07-2021 Note PROCEDURE: XR FEMUR LT COMPARISON: None. HISTORY: Unspecified fall FINDINGS: BONES:No fracture, acute abnormality, or significant arthropathy. SOFT TISSUES:Negative. No visible soft tissue swelling. EFFUSION:None visible. OTHER: Negative. IMPRESSION: No acute abnormality Electronically authenticated by: TEODORO WHITLEY Date: 2021-04-07 09:14 [facility] Evaluation + Plan note Note Date & Type Note Facility Evaluation + Plan note No data available for this section [facility] Evaluation note Note Date & Type Note Facility Evaluation note Diagnosis Onset Date Anxiety acute Asthma acute Depression acute Irregular heart beat acute Maxillary sinusitis acute Scoliosis acute Trigger finger of right hand acute [facility] Work Phone: Evaluation note Note Date & Type Note Facility Evaluation note Diagnosis Onset Date Anxiety acute Asthma acute Depression acute Irregular heart beat acute Maxillary sinusitis acute Scoliosis acute Trigger finger of right hand acute Congenital heart defect acut e Irregular heart beat acute Scoliosis acute [facility] Work Phone: Evaluation note Note Date & Type Note Facility Evaluation note Diagnosis Onset Date Congenital heart defect acut e Deformity of right lower extremity acute Irregular heart beat acute Scoliosis acute Stress headaches acute Trigger finger of right hand acute Rash acute [facility] Work Phone: Hospital Discharge instructions Note Date & Type Note Facility Hospital Discharge instructions No data available for this section [facility] Progress note Note Date & Type Note Facility Progress note No data available for this section [facility] Summary Purpose Family History Relationship Condition Age at Onset Recorded Date/T donna Not Specified Seizure Unknown Not Specified Diabetes mellitus Unknown Hypertension Unknown Anxiety Unknown Depression Unknown Relationship Condition Age at Onset Recorded Date/T donna Not Specified Seizure Unknown mother Diabetes mellitus Unknown Hypertension Unknown Anxiety Unknown Depression Unknown Advance Directives Advance Directive Response Recorded Date/ Time Advance Directives No June 07 10:38am Chief Complaint and Reason for Visit Chief Complaint establish - trigger finger Reason for Visit Anxiety Asthma Depression Irregular heart beat Maxillary sinusitis Scoliosis Trigger finger of right hand Chief Complaint establish - trigger finger discuss full workup Reason for Visit Anxiety Asthma Depression Irregular heart beat Maxillary sinusitis Scoliosis Trigger finger of right hand Congenital heart defect Irregular heart beat Scoliosis Chief Complaint discuss full workup Rash Reason for Visit Congenital heart def ect Deformity of right lower extremity Irregular heart beat Scoliosis Stress headaches Trigger finger of right hand Rash Additional Source Comments INFORMATION SOURCE (unrecogn ized section and content) DATE CREATED AUTHOR 01/10/2022 [facility] DATE CREATED AUTHOR AUTHOR'S ORGANIZ ATION 06/07/2023 [facility] EPIC DATE CREATED AUTHOR AUTHOR'S ORGANIZ ATION 08/16/2023 [facility] Care Teams (unrecognized sec tion and content) Team Status: Active Member Role Status Dates Penelope Garcia APRN [employer]CH[employer]IC-C Primary Care Provider Active Team Status: Inactive Member Role Status Dates Penelope Garcia APRN [employer]CH[employer]IC-C Primary Care Provider, Attending Provider Active Start: June 20, 2023 End: June 20, 2023 Team Status: Inactive Member Role Status Dates Penelope Garcia APRN [employer] MECH[employer]IC-C Primary Care Provider, Attending Provider Active Start: August 06, 2023 End: August 06, 2023 Team Status: Inactive Member Role Status Dates Penelope Garcia APRN [employer] MECH[employer]IC-C Primary Care Provider, Attending Provider Active Start: September 27, 2023 End: September 27, 2023 Goals (unrecognized section and content) Goals may be documented in a n alternate sectionGoals may be documented in an alternate section No data available for this sectionGoals may be documented in an alternate section FOR RECORDS PERTAINING TO PATIENTS [...] BE BASED ON THE PRIMARY CLINICAL RECORDS. [employer] [facility]. provides no warranty or guarantee of the accuracy or completeness of information in this document.
[2023-10-01] MEDS: DIPHENHYDRAMINE HCL 50 MG/ML VIAL 25 MG IV (18:38)
[2023-10-01] MEDS: METHYLPREDNISOLONE SOD SUCC PF 125 MG/2 ML VIAL IVP (18:39)
[2023-10-01] MEDS: LORAZEPAM 2 MG/ML VIAL 0.5 MG IV (18:39)
[2023-10-01] MEDS: FAMOTIDINE/PF 20 MG/2 ML VIAL IV (18:39)
[2023-10-01] MEDS: ALBUTEROL SULFATE 2.5 MG/3 ML VIAL NEB IH (18:40)
[2023-10-01 18:42] VITALS: PULSE 85; O2SAT 100
[2023-10-01 19:43] VITALS: BP 149/88; PULSE 81; O2SAT 97
== END 2023-10-01 19:46 | disposition home or self-care (01) ==
PROVIDERS: Emergency Provider Emergency Medicine; Family Provider Physician Assistant; PCP Nurse Practitioner Family
DX: T63.441A Toxic effect of venom of bees, accidental (unintentional), initial encounter (principal); Z87.891 Personal history of nicotine dependence
CPT/HCPCS: 94640; 96374; 96375; 99284; J1200; J2060; J2919

== ENCOUNTER 2023-12-24 15:46 | Emergency (ER) | payer OTHER, SELFPAY ==
[2023-12-24 15:56] VITALS: BP 141/98; PULSE 73; TEMP 36.5; O2SAT 98; BMI 30.5
--- NOTE | 2023-12-24 16:17 | ED.BACK1 ---
HPI HPI - Back Pain/Injury General Chief Complaint: Back Pain/Injury Stated Complaint: BACK INJURY Time Seen by Provider: 12/24/23 16:13 Source: patient and family Mode of arrival: walk-in Limitations: no limitations History of Present Illness HPI Narrative: 38 year old female presents to the ED for back pain. Onset was after pulling weeds and doing other yard work on 12/21/23 and 12/22/23. The pain is worse with movement. Most of the pain is across her lower back. Denies falling, specific injury. Denies fever, chills, urinary sx, saddle anesthesia. Denies change in bowel and/or bladder control. She would like x-rays today. She is accompanied by family for a ride home. Related Data Home Medications ?Medication ?Instructions ?Recorded ?Confirmed albuterol sulfate 90 mcg/actuation 2 puff inhalation Q6H PRN wheezing 11/15/22 10/01/23 aerosol inhaler ciclopirox 0.77 % topical cream 1 applic topical Q12H 11/15/22 04/16/23 diclofenac sodium 1 % topical gel 2 g topical QID 11/15/22 04/16/23 epinephrine 0.3 mg/0.3 mL 0.3 ml subcut ONCE PRN allergic 11/15/22 10/01/23 injection, auto-injector reaction melatonin 5 mg capsule 5 mg PO QPM 11/15/22 04/16/23 ciclopirox 1 % shampoo 5 ml topical QWEEK 04/16/23 04/16/23 Previous Rx's ?Medication ?Instructions ?Recorded naproxen sodium 550 mg tablet 550 mg PO BID PRN pain #10 tabs 04/16/23 ouphftpgfyttgfm-wgcxrxqtgjrrayq-PW 10 ml PO Q6H PRN cold symptoms 05/16/23 2 mg-30 mg-10 mg/5 mL oral syrup #200 mL (Bromfed DM) epinephrine 0.3 mg/0.3 mL 0.3 mg (0.3 mL) IM ONCE PRN 10/01/23 injection, auto-injector allergic reaction #2 ea famotidine 20 mg tablet (Pepcid) 20 mg PO BID #10 tabs 10/01/23 hydroxyzine HCl 25 mg tablet 25 mg PO Q6H PRN itching #20 tabs 10/01/23 prednisone 20 mg tablet 40 mg (2 x 20 mg) PO DAILY 5 days 12/24/23 #10 tabs tizanidine 4 mg capsule (Zanaflex) 2 mg (1/2 x 4 mg) PO Q8H PRN 12/24/23 muscle spasticity #10 caps Allergies Allergy/AdvReac Type Severity Reaction Status Date / Time Penicillins Allergy Severe Verified 05/16/23 21:00 tramadol Allergy Severe Verified 05/16/23 21:00 bees Allergy Severe Uncoded 05/16/23 21:00 whooping cough vaccine AdvReac Severe itching Uncoded 05/16/23 21:00 Opioid HPI Opioid Management Most Recent Opioid Data: No Data to Display Review of Systems ROS Constitutional Denies: fever or chills Cardiovascular Denies: chest pain Respiratory Denies: shortness of breath Gastrointestinal Denies: abdominal pain, nausea, vomiting or diarrhea Genitourinary Denies: painful urination, urinary frequency, urinary urgency, urinary incontinence or blood in urine Musculoskeletal Reports: back pain and neck pain; Denies: extremity pain Integumentary/Breast Denies: rash Neurological Denies: headache, numbness in extremities, weakness in extremities, lack of coordination or dizziness PFSH PFS Social History Smoking status: Former smoker Little interest or pleasure in doing things: not at all Feeling down, depressed, or hopeless: not at all Exam Constitutional Vital Signs, click to edit/add: Last Vital Signs Temp 97.7 F 12/24/23 15:56 Pulse 73 12/24/23 15:56 Resp 16 12/24/23 15:56 BP 141/98 H 12/24/23 15:56 Pulse Ox 98 12/24/23 15:56 O2 Del Method Room Air 12/24/23 15:56 Common normals: no apparent distress and oriented x3 General appearance: cooperative Eye Common normals: conjunctivae normal and no scleral icterus Neck & C-Spine Common normals: supple General: normal visual inspection and trachea midline Cervical spine: no cervical spine tenderness and no paracervical muscle tenderness Respiratory Common normals: normal respiratory effort Effort & inspection: able to speak in complete sentences Cardio Common normals: regular rate Back & Pelvis Thoracic spine/upper back: normal to inspection; no thoracic spinal tenderness and no paraspinal muscle tenderness Lumbar spine/lower back: normal to inspection, paraspinal muscle tenderness and paraspinal muscle spasm; no lumbar spinal tenderness Neuro Common normals: oriented x3 Sensorium/orientation: awake and alert Speech: speech normal Gait (neuro): normal gait Course Vital Signs Vital signs: Vital Signs Temperature 97.7 F 12/24/23 15:56 Pulse Rate 73 12/24/23 15:56 Respiratory Rate 16 12/24/23 15:56 Blood Pressure 141/98 H 12/24/23 15:56 Pulse Oximetry 98 12/24/23 15:56 Oxygen Delivery Method Room Air 12/24/23 15:56 Temperature 97.7 F 12/24/23 15:56 Pulse Rate 73 12/24/23 15:56 Respiratory Rate 16 12/24/23 15:56 Blood Pressure 141/98 H 12/24/23 15:56 Pulse Oximetry 98 12/24/23 15:56 Oxygen Delivery Method Room Air 12/24/23 15:56 MDM - Back Pain/Injury MDM Narrative Medical decision making narrative: X-ray showed no acute findings. Findings were discussed. She was given medication here with improvement her symptoms. Prescriptions were provided for Zanaflex and prednisone. Follow up with pcp for a recheck, further evaluation and treatment. Return precautions were discussed. Medical Records Attestation: I reviewed the patient's medical records. Imaging Data XR lumbar spine: Attestation: I have reviewed the pertinent imaging results. Radiologist's impression: ITS Impressions Lumbar Spine X-Ray 12/24/23 16:32 IMPRESSION: No acute fracture or traumatic malalignment. Electronically authenticated by: LEILA BEEBE Date: 12/24/2023 17:25 Discharge Plan Discharge Chief Complaint: Back Pain/Injury Clinical Impression: Back strain Patient Disposition: Home, Self-Care Time of Disposition Decision: 17:33 Condition: Good Mode of Transportation: Private Vehicle Prescriptions / Home Meds: New tizanidine [Zanaflex] 4 mg capsule 2 mg PO Q8H PRN (Reason: muscle spasticity) Qty: 10 0RF prednisone 20 mg tablet 40 mg PO DAILY 5 Days Qty: 10 0RF No Action albuterol sulfate 90 mcg/actuation HFA aerosol inhaler 2 puff INHALATION Q6H PRN (Reason: wheezing) ciclopirox 0.77 % cream 1 applic TOPICAL Q12H epinephrine 0.3 mg/0.3 mL auto-injector 0.3 ml subcut ONCE PRN (Reason: allergic reaction) diclofenac sodium 1 % gel 2 g topical QID Rx Instructions: apply to single elbow, wrist or hand; for hand includes palm/fingers/back of hand melatonin 5 mg capsule 5 mg PO QPM crivyolypmydkuf-idfaxdehu-EE [Bromfed DM] 2-30-10 mg/5 mL syrup 10 ml PO Q6H PRN (Reason: cold symptoms) Qty: 200 0RF ciclopirox 1 % shampoo 5 ml TOPICAL QWEEK naproxen sodium 550 mg tablet 550 mg PO BID PRN (Reason: pain) Qty: 10 0RF famotidine [Pepcid] 20 mg tablet 20 mg PO BID Qty: 10 0RF hydroxyzine HCl 25 mg tablet 25 mg PO Q6H PRN (Reason: itching) Qty: 20 0RF epinephrine 0.3 mg/0.3 mL auto-injector 0.3 mg IM ONCE PRN (Reason: allergic reaction) Qty: 2 0RF Print Language: Yoruba Instructions: Low Back Strain (ED), Back Pain (ED) Additional Instructions: Return to the ER for new or worsening symptoms. Referrals: KARIN MALONE [Primary Care Provider] - 1 week
--- NOTE | 2023-12-24 16:32 | XR_ITS ---
The [address] [address] Patient Name: DEBORAH ESPINOZA MRN: [facility]:[id number] date: 1985 Sex: F Assigned Patient Location: ER Current Patient Location: ED.MAIN Accession/Order Number: [id number] Exam Date: 12/24/2023 16:25 Report Date: 12/24/2023 17:25 At the request of: RIVERA STOCKTON Procedure: XR lumbar spine 2-3V EXAMINATION: XR lumbar spine 2-3V, , 12/24/2023 4:25 PM EDT INDICATION: pain HISTORY: Ordering Provider Reason for Exam: pain Technologist Note: Additional: COMPARISON: None. TECHNIQUE: Lumbar spine x-ray: 3 view(s). FINDINGS: No acute fracture or traumatic malalignment. Normal lumbar lordosis. No listhesis. No abnormal curvature. Vertebral body heights are normal. Disc heights are maintained. Visualized soft tissues are unremarkable. XR/XR lumbar spine 2-3V IMPRESSION: No acute fracture or traumatic malalignment. Electronically authenticated by: LEILA BEEBE Date: 12/24/2023 17:25
[2023-12-24] MEDS: DEXAMETHASONE SOD PHOS 10 MG/ML VIAL IM (16:36)
[2023-12-24] MEDS: HYDROCODONE/ACET 5-325 MG TABLET 1 TAB PO (16:37)
== END 2023-12-24 17:38 | disposition home or self-care (01) ==
PROVIDERS: Emergency Provider Emergency Medicine; Family Provider Physician Assistant; PCP Nurse Practitioner Family
DX: S39.012A Strain of muscle, fascia and tendon of lower back, initial encounter (principal); X50.9XXA Other and unspecified overexertion or strenuous movements or postures, initial encounter; Y93.H2 Activity, gardening and landscaping; Z87.891 Personal history of nicotine dependence
CPT/HCPCS: 72100; 96372; 99284; J1100

== ENCOUNTER 2024-02-11 12:54 | Outpatient (OUT) | payer OTHER, SELFPAY ==
--- OUTSIDE RECORDS SUMMARY | 2024-02-11 13:19 | XMS_ITS | CCD ---
Author Organization [facility]iniSynj Care Team Providers Care Tank Truck Loader Name Role Phone KOLBY KIRK Admitting Unavailable [...] Unavailable HEMMER, DR CASH Gomes Attending Unavailable ANÉGLICA, DR ALEGRIA Primary Care Unavailable HOODSANNA KOTHARI [...] SMITH Attending Unavailable HEMCASH MUELLER Referring Unavailable HEMCASH MUELLER Attending Unavailable HEMCASH MUELLER Attending Unavailable ANJELICA MARTINS Primary Care Physician [phone] PENELOPE GARCIA Attending Unavailab le ROHRBACHERPENELOPE Admitting Unavailab le Allergies Allergy Classification Reported Allergen(s) Allergy Type Date of Onset Reaction(s) Facility (1 source) cefdinir Drug Allergy 5 [facility] Repository (5 sources) Penicillins Drug allergy (disorder) 3 Hives [facility] Repository (5 sources) predniSONE Drug Allergy 2 Heartburn [facility] Repository (1 source) traMADol Drug Allergy 3 [facility] Rep[facility] (1 source) Pertussis Immune Globulin Drug allergy (disorder) 3 [facility] Rep[facility] (6 sources) spinach allergenic extract; Translations: [Spinach (substance)] Drug Allergy 4 Airway constriction (finding) [facility] (4 sources) bee venom protein (honey bee) Allergy to substance 4 Anaphylaxis [facility] (4 sources) diphtheria,pert ussis (acellular),te Allergy to substance 4 Unknown Reaction [facility] (2 sources) Bee/Wasp/Ant venom; Translations: [Bee Stings] Drug allergy [facility] (2 sources) Penicillin; Translations: [penicillin] Drug Allergy [facility] (2 sources) Pertussis Vaccine; Translations: [Whooping-cough vaccine] Drug Allergy Airway constriction (finding) [facility] (2 sources) Sodium Bicarbonate; Translations: [Baking soda] Drug Allergy Red color (finding) [facility] Medications Current Medications Medication Drug Class(es) Dates Sig (Normalized) Sig (Original) Acetaminophen / HYDROcodone (1 source) Opioid Agonist Start: 06-13-2011 Vicodin 500 mg-5 mg Tab 1 tab(s), Oral, q4hr as needed for pain, 10 tab(s), Refill(s) 0, Take one tab by mouth every four hours as needed for pain Start Date: 06/13/11 Status: Ordered Albuterol (9 sources) beta2-Adrenergic Agonist Start: 01-30-2024 take 1 puff(s) by inhalation every six hours Albuterol Sulfate Active 2 PUFF INHALATION Every 6 hours 6.7 January 30, 2024 4:08pm Start: 06-20-2023 take 2.5 mg by inhal ation every four to six hours Albuterol Sulfate Active 2.5 MG INHALATION EVERY 4-6 HOURS June 20, 2023 12:00am Start: 06-20-2023 End: 01-30-2024 take 1 puff(s) by inhalation every six hours Albuterol Sulfate Discontinued 2 PUFF INHALATION Every 6 hours June 20, 2023 12:00am January 30, 2024 4:08pm ARIPiprazole 2 mg oral tablet (5 sources) Atypical Antipsychotic Start: 06-20-2023 End: 02-01-2024 take 2 mg by mouth once daily Aripiprazole Active 2 MG PO Daily February 01, 2024 9:44am [id number] 0.3 ml EPINEPHrine 1 mg/ml auto-injector (4 sources) alpha-Adrenergic Agonist, beta-Adrenergic Agonist, Catecholamine Start: 06-20-2023 inject 1 mL by subcutaneous injection once Epinephrine Active 0.3 ML SUBCUT Once June 20, 2023 12:00am famotidine 20 mg oral tablet (2 sources) Histamine-2 Receptor Antagonist Start: 02-01-2024 End: 02-01-2024 take 20 mg by mouth once daily Famotidine Active 20 MG PO Daily February 01, 2024 9:45am fluticasone / salmeterol (1 source) Corticosteroid, beta2-Adrenergic Agonist Start: 12-07-2009 take 1 puff(s) by inhalation once daily Advair 250 mcg-50 mcg Powder 1 puff(s), Inhalation, Daily, Refill(s) 0 Start Date: 12/07/09 Status: Ordered ibuprofen 800 mg oral tablet (5 sources) Nonsteroidal Anti-inflammatory Drug Start: 12-25-2023 take 800 mg by mouth every eight hours Ibuprofen Active 800 MG PO Every 8 hours December 25, 2023 11:23am Start: 06-20-2023 End: 12-25-2023 take 800 mg by mouth every six hours Ibuprofen Discontinued 800 MG PO Every 6 hours June 20, 2023 12:00am December 25, 2023 11:24am Singulair (1 source) Leukotriene Receptor Antagonist Start: 12-07-2009 Singulair Oral, Daily, Refills(s) 0 Start Date: 12/07/09 Status: Ordered naproxen 500 mg oral tablet (2 sources) [...] Refill(s) 0 Start Date: 12/07/09 Status: Ordered Completed/Discontinued Medications Medication Drug Class(es) Dates Sig (Normalized) Sig (Original) ciclopirox 7.7 mg/ml topical cream (8 sources) Start: 06-20-2023 End: 02-01-2024 Ciclopirox Discontinued TOPICAL June 20, 2023 12:00am February 01, 2024 9:32am Start: 06-20-2023 End: 02-01-2024 Ciclopirox Discontinued 1 AP PLIC TOPICAL Daily June 20, 2023 12:00am February 01, 2024 9:32am Diclofenac (4 sources) Nonsteroidal Anti-inflammatory Drug Start: 06-20-2023 End: 02-01-2024 Diclofenac Sodium Discontinued TOPICAL June 20, 2023 12:00am February 01, 2024 9:32am Start: 06-20-2023 Diclofenac Sod ium Active TOPICAL June 20, 2023 12:00am doxycycline monohydrate 100 mg oral tablet (4 sources) Tetracycline-class Drug Start: 06-20-2023 End: 02-01-2024 take 100 mg by mouth twice daily Doxycycline Monohydrate Discontinued 100 MG PO Twice daily 19 01June 20, 2023 12:00am February 01, 2024 9:32am methylPREDNISolone 4 mg oral tablet (2 sources) Corticosteroid Start: 09-27-2023 End: 02-01-2024 take 1 tablet by mouth once Methylprednisolone (Medrol (Dominick)) 4 mg tablets,dose pack Discontinued 0 PO per package directions 20 09September 27, 2023 12:00am February 01, 2024 9:33am PO PER PKG DIR mupirocin 0.02 mg/mg topical ointment (4 sources) RNA Synthetase Inhibitor Antibacterial Start: 06-20-2023 End: 02-01-2024 Mupirocin Discontinued 1 APPLIC TOPICAL Twice daily 21 10June 20, 2023 12:00am February 01, 2024 9:33am Problems Active Problems Problem Classification Problem Date Documented Date Episodic/Chronic Anxiety disorders (7 sources) Anxiety; Translations: [Anxiety disorder, unspecified] 06-20-2023 Chronic Asthma (9 sources) Unspecified asthma, uncomplicated; Translations: [Asthma] Onset: 01-02-2022 06-20-2023 Chronic Cardiac and circulatory congenital anomalies (5 sources) Congenital heart disease; 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, unspecified] 08-06-2023 Chronic Cardiac dysrhythmias (8 sources) Irregular heart beat; Translations: [Cardiac arrhythmia, [...] labor (1 source) Premature labor 06-13-2013 Episodic Esophageal disorders (2 sources) Gastroesophageal reflux disease; Translations: [Gastro-esophageal reflux disease without esophagitis] 02-01-2024 Chronic Heart valve disorders (1 source) Heart murmur 06-13-2013 Episodic Miscellaneous mental health disorders (4 sources) Psychogenic headache; 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] 08-07-2023 Chronic Mood disorders (7 sources) Depressive disorder; Translations: [Depression] 06-20-2023 Chronic Osteoarthritis (5 sources) Unspecified osteoarthritis, unspecified site; Translations: [Arthritis] Onset: 01-02-2022 06-20-2023 Chronic Other acquired deformities (5 sources) Scoliosis, unspecified; Translations: [Scoliosis [and kyphoscoliosis], idiopathic] Onset: 04-11-2021 06-20-2023 Chronic Other acquired deformities (4 sources) Scoliosis deformity of spine; Translations: [Scoliosis, unspecified] 06-20-2023 Chronic Other acquired deformities (2 sources) Deformity of lower limb; Translations: [Unspecified acquired deformity of right thigh] 08-07-2023 Episodic Other acquired deformities (2 sources) Unspecified acquired deformity of right thigh; Translations: [Other acquired deformity of other parts of limb] 08-06-2023 Episodic Other bone disease and musculoskeletal deformities (1 source) 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 Other congenital anomalies (1 source) 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 Other connective tissue disease (4 sources) Triggering of digit; Translations: [Trigger finger, unspecified finger] 06-20-2023 Episodic Other connective tissue disease (3 sources) Trigger finger, unspecified finger; Translations: [Trigger finger (acquired)] 06-20-2023 Episodic Other nervous system disorders (5 sources) Carpal tunnel syndrome; Translations: [Carpal tunnel syndrome, unspecified upper limb] 06-20-2023 Chronic Other non-traumatic joint disorders (3 sources) Pain in right ankle and joints of right foot; Translations: [PAIN IN RIGHT ANKLE] Onset: 12-31-2021 Episodic Other skin disorders (2 sources) Eruption; Translations: [Rash and other nonspecific skin eruption] 09-27-2023 Episodic Other skin disorders (1 source) Rash and other nonspecific skin eruption; Translations: [Rash and other nonspecific skin eruption] 09-27-2023 Episodic Other upper respiratory infections (6 sources) Maxillary sinusitis; Translations: [Chronic maxillary sinusitis] 06-20-2023 Chronic Spondylosis; intervertebral disc disorders; other back problems (2 sources) Chronic low back pain; Translations: [Chronic low back pain] 02-01-2024 Episodic Substance-related disorders (1 source) Nicotine dependence, [...] Wesley Saenz DO Transcribed by: DELILAH Technologist: MARIELOS Technical Comments Radiation Dose: Ka,r in mGy = na DAP = na [facility] Consent for Treatmenton 07-31 Consent for Treatment [id number] 0TIFF [facility] Physician Orderon 08-14-2023 Physician Order [id number] 00TIFF [facility] XR ANKLE RT MIN 3 VIEWSon XR [...] Santy RO Date: 2021-12-31 22:43 Normal [facility] CT NECK ST W CONon 2 CT [...] by: LIZANDRO DELACRUZ Date: 2021-09-13 17:01 Normal [facility] XR HIP LT 2 3V W PELVISon [...] by: SANNA HOOD Date: 2021-04-18 11:[address] [facility] Vital Signs Date Time Vital Sign Value Performing Clinician Faci lity 02-01-2024 [id number] Body height 165.1 cm [facility] 02-01-2024 [id number] Body mass index (BMI) [Ratio] 30.9 kg/m2 [facility] 02-01-2024 09:28-0400 Body temperature 96.8 [degF] [facility] 02-01-2024 09:28-0400 Body weight 84.48 kg [facility] 02-01-2024 09:28-0400 Diastolic blood pressure 76 mm[Hg] [facility] 02-01-2024 09:28-0400 Heart rate 70 /min [facility] 02-01-2024 09:28-0400 SaO2% (BldA) [Mass fraction] 98 % [facility] 02-01-2024 09:28-0400 Systolic blood pressure 124 mm[Hg] [facility] 09-27-2023 13:58-0400 Body height 165.1 cm [facility] 09-27-2023 13:58-0400 Body mass index (BMI) [Ratio] 30.4 kg/m2 [facility] 09-27-2023 13:58-0400 Body weight 83.06 kg [facility] 09-27-2023 13:58-0400 Diastolic blood pressure 76 mm[Hg] [facility] 09-27-2023 13:58-0400 Heart rate 70 /min [facility] 09-27-2023 13:58-0400 Respiratory rate 12 /min [facility] 09-27-2023 13:58-0400 Systolic blood pressure 122 mm[Hg] [facility] 08-06-2023 15:26-0400 Body height 165.1 cm [facility] 08-06-2023 15:26-0400 Body mass index (BMI) [Ratio] 29.7 kg/m2 [facility] 08-06-2023 15:26-0400 Body temperature 97.5 [degF] [facility] 08-06-2023 15:26-0400 Body weight 81.19 kg [facility] 08-06-2023 15:26-0400 Diastolic blood pressure 74 mm[Hg] [facility] 08-06-2023 15:26-0400 Heart rate 71 /min [facility] 08-06-2023 15:26-0400 Respiratory rate 18 /min [facility] 08-06-2023 15:26-0400 SaO2% (BldA) [Mass fraction] 98 % [facility] 08-06-2023 15:26-0400 Systolic blood pressure 110 mm[Hg] [facility] 06-20-2023 14:49-0400 Body height 165.1 cm [facility] 06-20-2023 14:49-0400 Body mass index (BMI) [Ratio] 29.7 kg/m2 [facility] 06-20-2023 14:49-0400 Body weight 81.19 kg [facility] 06-20-2023 14:49-0400 Diastolic blood pressure 80 mm[Hg] [facility] 06-20-2023 14:49-0400 Heart rate 78 /min [facility] 06-20-2023 14:49-0400 SaO2% (BldA) [Mass fraction] 98 % [facility] 06-20-2023 14:49-0400 Systolic blood pressure 116 mm[Hg] [facility] Encounters Encounter Date Encounter Type Care Provider Facility Start: 02-01-2024 End: 02-01-2024 ambulatory [facility] Work Phone: Start: 02-01-2024 End: 02-01-2024 Patient encounter procedure [facility] Work Phone: Start: 09-27-2023 End: 09-27-2023 ambulatory [facility] Work Phone: Start: 09-27-2023 End: 09-27-2023 Patient encounter procedure [facility] Work Phone: Start: 08-14-2023 End: 08-15-2023 ambulatory PENELOPE GARCIA Facility:[facility] Start: 08-14-2023 End: 08-14-2023 Patient encounter procedure PENELOPE GARCIA [facility] Start: 08-06-2023 End: 08-06-2023 ambulatory [facility] Work Phone: Start: 08-06-2023 End: 08-06-2023 Patient encounter procedure [facility] Work Phone: Start: 06-20-2023 End: 06-20-2023 ambulatory [facility] Work Phone: Start: 06-20-2023 End: 06-20-2023 Patient encounter procedure [facility] Work Phone: Start: 06-06-2023 End: [...] Start: 09-13-2021 End: 09-14-[address] J CRALOS AGUILAR Facility:[facility] Start: 04-18-2021 End: 04-19-[address] CASH DANIEL Facility:[facility] Start: 04-07-2021 End: 04-07-[address] DOCTOR CASTILLO Facility:[facility] Procedures Date Procedure Procedure Detail Performing Clinician History of decompres fly of median nerve History of carpal tunnel surgery of right wrist Ligation of fallopian tube J DONNA GARCIA right forearm PENELOPE DORAN Plan of Treatment Date Care Activity Detail Author Start: 02-01-2024 Patient referral [facility] Work Phone: Start: 06-20-2023 Patient referral [facility] Work Phone: Patient Education Low back pain in adults [facility] Work Phone: Patient referral [facility] Work Phone: [facility] Payers Date Payer Category Payer Medicaid [id number] 1985 Unknown [id number] 2.16.84 [id number] 1985 Unknown [id number] 2.16.84 [id number] 1985 Unknown [id number] 2.16.84 0.1.002700.3.579.2.593 1986 Unknown [id number] 2.16.84 0.1.789072.3.579.2.593 1986 Unknown [id number] 2.16.84 0.1.223233.3.579.2.593 1986 Unknown [id number] 2.16.84 0.1.038011.3.579.2.1259 1986 Unknown [id number] 2.16.84 0.1.522868.3.579.2.1259 1986 Unknown [id number] 2.16.84 0.1.824003.3.579.2.1259 1986 Unknown [id number] 2.16.84 0.1.859914.3.579.2.1259 1986 Unknown [id number] 2.16.84 0.1.947385.3.579.2.1259 1986 Unknown [id number] 2.16.84 0.1.527041.3.579.2.1259 1986 Unknown [id number] 2.16.840 .1.505336.3.579.2.1259 1986 Unknown [id number] 2.16.840 .1.142531.3.579.2.1259 1986 Unknown [id number] 2.16.840 .1.356877.3.579.2.1259 1986 Unknown [id number] 2.16.840 .1.444783.3.579.2.1259 1986 Unknown [id number] 2.16.840 .1.333173.3.579.2.1259 1986 Unknown [id number] 2.16.8 40.1.444718.3.579.2.727 1959 Unknown [id number] Medicaid [employer] [id number] Social History Date Type Detail Facility Start: 06-20-2023 Tobacco smoking stat [facility] Never smoked tobacco (finding) [facility] Start: 1985 Sex Assigned At Female F [facility] Tobacco smoking status Mar[facility] Start: 02-01-2024 Tobacco smoking stat [facility] Ex-smoker (finding) [facility] Clinical Notes 04-07-2021 to 06-20-2023 Note Date & Type Note Facility 06-20-2023 Hospital Discharg e instructions Ambulatory OrdersReferral to Orthopedic Surgery Time Frame: 06/20/23, Location: None Selected [facility] Work Phone: 01-09-2022 Note PROCEDURE: XR ANKLE RT MIN 3 VIEWS HISTORY: Contusion of right ankle ; acute anterior right ankle pain since injury 16 days ago COMPARISON: XR ankle right 12/31/2021 FINDINGS: BONES:No fracture, acute abnormality, or significant arthropathy. SOFT TISSUES:No visible soft tissue swelling. EFFUSION:None visible. OTHER: Negative. IMPRESSION: 1. Normal examination. Electronically authenticated by: LIZANDRO DELACRUZ Date: 2022-01-09 16:12 [facility] 04-07-2021 Note PROCEDURE: XR FEMUR LT COMPARISON: None. HISTORY: Unspecified fall FINDINGS: BONES:No fracture, acute abnormality, or significant arthropathy. SOFT TISSUES:Negative. No visible soft tissue swelling. EFFUSION:None visible. OTHER: Negative. IMPRESSION: No acute abnormality Electronically authenticated by: TEODORO WHITLEY Date: 2021-04-07 09:14 [facility] Evaluation + Plan note No data available for this section [facility] Evaluation note Diagnosis Onset Date Anxiety acute Asthma acute Depression acute Irregular heart beat acute Maxillary sinusitis acute Scoliosis acute Trigger finger of right hand acute [facility] Work Phone: Evaluation note* Diagnosis Onset Date Resolution Status Anxiety acute Asthma acute Depression acute Irregular heart beat acute Maxillary sinusitis acute Scoliosis acute Trigger finger of right hand acute Congenital heart defect acut e Irregular heart beat acute Scoliosis acute [facility] Work Phone: Evaluation note* Diagnosis Onset Date Resolution Status Congenital heart defect acut e Deformity of right lower extremity acute Irregular heart beat acute Scoliosis acute Stress headaches acute Trigger finger of right hand acute Rash acute [facility] Work Phone: Evaluation note* Diagnosis Onset Date Resolution Status Anxiety acute Chronic lower back pain acut e Deformity of right lower extremity acute Depression acute GERD (gastroesophageal reflux disease) acute Stress headaches acute [facility] Work Phone: Hospital Discharge instructions No data available for this section [facility] Referral to Pain Management Time Frame: 02/01/24, Location: None [facility] Work Phone: Progress note No data available for this section [facility] Summary Purpose Family History Relationship Condition Age [...] headaches Trigger finger of right hand Rash Chief Complaint Acid Reflux/Back Maame n Reason for Visit Anxiety Chronic lower back pain Deformity of right lower extremity Depression GERD (gastroesophageal reflux disease) Stress headaches Additional Source Comments INFORMATION SOURCE (unrecogn ized section and content) DATE CREATED AUTHOR 01/10/2022 [facility] DATE CREATED AUTHOR AUTHOR'S ORGANIZ ATION 06/07/2023 [facility] EPIC DATE CREATED AUTHOR AUTHOR'S ORGANIZ ATION 08/16/2023 [facility] Care Teams (unrecognized sec tion and content) Team Status: Active Member Role Status Dates Penelope Garcia APRN OPTOELECTRONIC TECHNICIAN-C Primary Care Provider Active Team Status: Inactive Member Role Status Dates Penelope GantANTOINE ansari OPTOELECTRONIC TECHNICIAN-C Primary Care Provider, Attending Provider Active Start: June 20, 2023 End: June 20, 2023 Team Status: Inactive Member Role Status Dates Penelope GantANTOINE ansari OPTOELECTRONIC TECHNICIAN-C Primary Care Provider, Attending Provider Active Start: August 06, 2023 End: August 06, 2023 Team Status: Inactive Member Role Status Dates Penelope ANTOINE Garcia OPTOELECTRONIC TECHNICIAN-C Primary Care Provider, Attending Provider Active Start: September 27, 2023 End: September 27, 2023 Team Status: Inactive Member Role Status Dates Penelope ANTOINE Garcia OPTOELECTRONIC TECHNICIAN-C Primary Care Provider, Attending Provider Active Start: February 01, 2024 End: February 01, 2024 Goals (unrecognized section and content) Goals may be documented in a n alternate sectionGoals may be documented in an alternate section No data available for this sectionGoals may be documented in an alternate sectionGoals may be documented in an [...] BE BASED ON THE PRIMARY CLINICAL RECORDS. [employer] provides no warranty or guarantee of the accuracy or completeness of information in this document.
--- NOTE | 2024-02-11 14:59 | P.CN_ITS ---
Consult Note: HPI Data of Consult Patient: new to practice Consult date: 02/11/24 Requesting Physician: Katie Lipscmob MD Primary Care Provider: KARIN MALONE Family Provider: CASH DANIEL Consult Narrative Reason for consult: neck, low back pain Narrative: 38yof who presents for evaluation. several months of worsening pain through neck that radiates into upper extremities, low back pain with radiation into bilateral lower extremities. has undergone several months of chiropractic therapy, without relief. uses otc pain meds, as needed. denies adverse med side effects. cc:: CC: Katie Lipscomb MD Review of Systems ROS Status of ROS 10 or more systems reviewed and unremark able except as noted in history and below [facility] Medical History (Updated 02/11/24 @ 15:02 by Katie Lipscomb MD) Osteoarthritis ?M19.90 - Unspecified osteoarthritis, unspecified site (ICD-10) Carpal tunnel syndrome ?G56.00 - Carpal tunnel syndrome, unspecified upper limb (ICD-10) Acid reflux ?K21.9 - Gastro-esophageal reflux disease without esophagitis (ICD-10) Asthma ?J45.909 - Unspecified asthma, uncomplicated (ICD-10) Heart murmur ?R01.1 - Cardiac murmur, unspecified (ICD-10) Irregular heartbeat ?I49.9 - Cardiac arrhythmia, unspecified (ICD-10) Surgical History History of carpal tunnel release ?Z98.890 - Other specified postprocedural states (ICD-10) History of hysterectomy ?Z90.710 - Acquired absence of both cervix and uterus (ICD-10) History of tubal ligation ?Z98.51 - Tubal ligation status (ICD-10) History of surgery on arm ?Z98.890 - Other specified postprocedural states (ICD-10) Social History Smoking status: Former smoker Little interest or pleasure in doing things: not at all Feeling down, depressed, or hopeless: not at all Meds Home Medications and Allergies Home Medications ?Medication ?Instructions ?Recorded ?Confirmed ?Type albuterol sulfate 90 mcg/actuation 2 puff inhalation Q6H PRN wheezing 11/15/22 02/11/24 History aerosol inhaler ciclopirox 0.77 % topical cream 1 applic topical Q12H 11/15/22 02/11/24 History diclofenac sodium 1 % topical gel 2 g topical QID 11/15/22 02/11/24 History ciclopirox 1 % shampoo 5 ml topical QWEEK 04/16/23 02/11/24 History epinephrine 0.3 mg/0.3 mL 0.3 mg (0.3 mL) IM ONCE PRN 10/01/23 02/11/24 Rx injection, auto-injector allergic reaction #2 ea famotidine 20 mg tablet (Pepcid) 20 mg PO BID #10 tabs 10/01/23 02/11/24 Rx tizanidine 4 mg capsule (Zanaflex) 2 mg (1/2 x 4 mg) PO Q8H PRN 12/24/23 Rx muscle spasticity #10 caps aripiprazole 2 mg tablet 2 mg PO DAILY 02/11/24 02/11/24 History Allergies Allergy/AdvReac Type Severity Reaction Status Date / Time Penicillins Allergy Severe Verified 05/16/23 21:00 tramadol Allergy Severe Verified 05/16/23 21:00 bees Allergy Severe Uncoded 05/16/23 21:00 whooping cough vaccine AdvReac Severe itching Uncoded 05/16/23 21:00 Exam Narrative Exam Narrative: Psych-alert and oriented x 3. Attentive and appropriate, constitutionally normal, displays normal mood and affect per situation. There are no obvious deficits in memory, reasoning, or intellect.? Skin-no obvious rashes, bruising, erythema noted to the patient's area of pain.? Extremities- extremities are warm with minimal edema and palpable pulses. Cervical- tenderness to palpation noted in the cervical spine and paraspinal musculature.? Pain is elicited with flexion, extension, and lateral rotation of the cervical spine.? Range of motion is diminished due to pain. Facet loading maneuvers are positive.? Strength-unremarkable and within normal limits Sensory-no notable sensory deficits in the bilateral upper extremities to touch or pinprick with the exception to decreased sensation to the bilateral C3, 4, 5 dermatomal distribution. Lumbar-tenderness to palpation noted in the lumbar spine and paraspinal musculature. Pain is not elicited with flexion, extension, and lateral rotation of the lumbar spine. Range of motion is not diminished with these motions. Facet loading maneuvers are negative.? Strength-noted to be unremarkable with the exception of decreased strength rated at 4 out of 5 in bilateral quadriceps femoris, anterior tibialis. Sensory-no notable sensory deficits in the bilateral lower extremities to touch or pinprick in all dermatomal distributions with the exception to decreased sensation to the bilateral L3, 4 dermatomal distribution Coordination remains intact.? Gait remains non-antalgic Assessment and Plan Assessment and Plan (1) Cervical stenosis of spinal canal: (2) Lumbar stenosis with neurogenic claudication: Plan 38yof who presents for evaluation. failed conservative measures, as noted. given worsening symptoms and exam findings, would like her to undergo cervical and lumbar mri without contrast. she is in agreement. meds reviewed, no changes. follow up after imaging.
== END 2024-02-11 12:55 | disposition home or self-care (01) ==
LOC: PM 12:54
PROVIDERS: Family Provider Physician Assistant; PCP Nurse Practitioner Family; Visit Provider Anesthesiology
DX: M48.02 Spinal stenosis, cervical region (principal); M48.062 Spinal stenosis, lumbar region with neurogenic claudication
CPT/HCPCS: G0463

== ENCOUNTER 2024-03-03 14:42 | Outpatient (OUT) | payer OTHER, SELFPAY ==
--- NOTE | 2024-03-03 14:46 | MR_ITS ---
The [address] [address] Patient Name: DEBORAH ESPINOZA MRN: [facility]:[id number] date: 1985 Sex: F Assigned Patient Location: MRI Current Patient Location: MRI Accession/Order Number: [id number] Exam Date: 03/03/2024 15:00 Report Date: 03/03/2024 17:15 At the request of: YELITZA FLOR Procedure: MR cervical spine wo con MR cervical spine wo con, 03/03/2024 3:00 PM EST INDICATION: cervical stenosis COMPARISON: Prior CT of the neck dated 09/14/2019 TECHNIQUE: Multiplanar, multisequential MRI images of cervical spine were obtained without contrast. FINDINGS: There is loss of normal physiologic cervical lordosis. The vertebral heights are relatively preserved. The cervicomedullary junction is unremarkable. No definite signal abnormality within the spinal cord is noted. There are mild disc osteophyte complex associated with uncovertebral joint arthrosis from C3 to T1 contributing to neuroforaminal and canal stenosis. At the level of C2-C3, there is no neuroforaminal narrowing or canal stenosis. At the level of C3-C4, there is no neuroforaminal narrowing and no canal stenosis. At the level of C4-C5, there is moderate right and mild left neuroforaminal narrowing and no canal stenosis. At the level of C5-C6, there is superimposed left lateral disc protrusion with no significant neuroforaminal narrowing and mild canal stenosis. At the level of C6-C7, there is mild left neuroforaminal narrowing and no canal stenosis. Level of C7-T1 is unremarkable. No definite muscular or ligamentous injury is noted. MR/MR cervical spine wo con IMPRESSION: Mild degenerative changes of the cervical spine in particular at C4-C5 and C5-C6. Electronically authenticated by: DANIAL HOLDEN Date: 03/03/2024 17:15
--- NOTE | 2024-03-03 14:46 | MR_ITS ---
The [place] [id number] Patient Name: DEBORAH ESPINOZA MRN: [facility]:[id number] date: 1985 Sex: F Assigned Patient Location: MRI Current Patient Location: MRI Accession/Order Number: [id number] Exam Date: 03/03/2024 15:00 Report Date: 03/03/2024 17:22 At the request of: STELLARI GIEDRAITIS Procedure: MR lumbar spine wo con MR lumbar spine wo con, 03/03/2024 3:00 PM EST INDICATION: lumbar stenosis COMPARISON: Prior CT of the abdomen dated 08/03/2017 TECHNIQUE: Multiplanar, multisequential MRI images of lumbar spine were obtained without contrast. FINDINGS: For dictation purposes, the lowest complete disc space in the lumbar spine considered as L5-S1. There is normal physiologic lumbar lordosis. The vertebral height is preserved. There is signal abnormality on T1 and T2-weighted images in the vertebral bodies of visualized spine that may suggest bone marrow reconversion in appropriate clinical setting. The conus medullaris is at the level of L2. No signal abnormality within the visualized spinal cord is noted. The left kidney could not be visualized. No neural foraminal narrowing or canal stenoses at the level of T12-L1, L1-L2 and L2-L3 and L3-L4 is noted. At the level of L4-5, there are disc bulge with superimposed central protrusion with no neuroforaminal narrowing and no canal stenosis. At the level of L5-S1, there are disc bulge with superimposed central protrusion and annular fissure with no neuroforaminal narrowing and no canal stenosis. The paraspinal muscles are unremarkable. MR/MR lumbar spine wo con IMPRESSION: Mild degenerative changes of lumbar spine in particular at L4-L5 and L5-S1 with no significant neuroforaminal narrowing or canal stenosis. Electronically authenticated by: DANIAL HOLDEN Date: 03/03/2024 17:22
--- OUTSIDE RECORDS SUMMARY | 2024-03-03 14:59 | XMS_ITS | CCD ---
Author Organization [facility] CliniSyar Care Team Providers Care Operations Assistant Name Role Phone KOLBY KIRK Admitting Unavailable KOLBY KIRK Attending Unavailable MISC, DR PETERSON Primary Care Unavailable REAGAN, KOLBY Consulting Unavailable DALJIT RO Consulting Unavailable MISC, DR PETERSON Primary Care Unavailable LAWANDA, HENNY West Admitting Unavailable KATKO, HENNY West Attending Unavailable [...] MUELLER Referring Unavailable TASHI BANKS Attending Unavailable HEMCASH MUELLER Referring Unavailable VERNELL SMALLWOOD Attending Unavailable HEMMERCASH Referring Unavailable VERNELL SMALLWOOD Attending Unavailable HEMCASH MUELLER Referring Unavailable SHANEL STARK Attending Unavailable HEMCASH MUELLER Referring Unavailable SHONDA PORTER Attending Unavailable HEMCASH MUELLER Referring Unavailable HEMCASH MUELLER Attending Unavailable PIETER SMITH Attending Unavailable HEMCAHS MUELLER Referring Unavailable PIETER SMITH Attending Unavailable HEMCASH MUELLER Referring Unavailable HEMCASH MUELLER Attending Unavailable HEMCASH MUELLER Attending Unavailable ANJELICA MARTINS Primary Care Physician PENELOPE GARCIA Attending Unavailab PENELOPE Martinez Admitting Unavailab sejal Lipscomb MD, Katie Spivey Attending Unavailable Allergies Allergy Classification Reported Allergen(s) Allergy Type Date of Onset Reaction(s) Facility (1 source) cefdinir Drug Allergy 5 [facility] Repository (5 sources) Penicillins Drug allergy (disorder) 3 Hives [facility] Rep[facility] (5 sources) predniSONE Drug Allergy 2 Heartburn [facility] Rep[facility] (1 source) traMADol Drug Allergy 3 [facility] (1 source) Pertussis Immune Globulin Drug allergy (disorder) 3 [facility] Rep[facility] (6 sources) spinach allergenic extract; Translations: [Spinach (substance)] Drug Allergy 4 Airway constriction (finding) [facility] (4 sources) bee venom protein (honey bee) Allergy to substance 4 Anaphylaxis [facility] (4 sources) diphtheria,pert ussis (acellular),te Allergy to substance 4 Unknown Reaction [facility] (2 sources) Bee/Wasp/Ant venom; Translations: [Bee Stings] Drug allergy [facility] (2 sources) Penicillin; Translations: [penicillin] Drug Allergy [facility] (2 sources) Pertussis Vaccine; Translations: [Whooping-cough vaccine] Drug Allergy Airway constriction (finding) [facility] (2 sources) Sodium Bicarbonate; Translations: [Baking soda] Drug Allergy Red color (finding) [facility] Medications Current Medications Medication Drug Class(es) Dates [...] MG PO Daily February 01, 2024 9:44am [id number] 0.3 ml EPINEPHrine 1 mg/ml auto-injector (4 [...] in mGy = na DAP = na [facility] Consent for Treatmenton 07-31 Consent for Treatment [id number] [facility] Physician Orderon 08-14-2023 Physician Order [id number] [facility] XR ANKLE RT MIN 3 VIEWSon 10 -02-2022 XR ANKLE RT MIN 3 VIEWS EXAM: [...] by: Santy RO Date: 2021-12-31 22:43 Normal [facility] CT NECK ST W CONon 2 [...] by: LIZANDRO DELACRUZ Date: 2021-09-13 17:01 Normal [facility] XR HIP LT 2 3V W [...] by: SANNA HOOD Date: 2021-04-18 11:23 Normal [facility] Vital Signs Date Time Vital Sign Value Performing Clinician Faci lity 02-01-2024 09:280400 Body height 165.1 cm [facility] 02-01-2024 09:280400 Body mass index (BMI) [Ratio] 30.9 kg/m2 [facility] 02-01-2024 09:28-0400 Body temperature 96.8 [degF] [facility] 02-01-2024 09:280400 Body weight 84.48 kg [facility] 02-01-2024 09:28-0400 Diastolic blood pressure 76 mm[Hg] [facility] 02-01-2024 09:28-0400 Heart rate 70 /min [facility] 02-01-2024 09:28-0400 SaO2% (BldA) [Mass fraction] 98 % [facility] 02-01-2024 09:28-0400 Systolic blood pressure 124 mm[Hg] [facility] 09-27-2023 13:58-0400 Body height 165.1 cm [facility] 09-27-2023 13:58-0400 Body mass index (BMI) [Ratio] 30.4 kg/m2 [facility] 09-27-2023 13:58-0400 Body weight 83.06 kg [facility] 09-27-2023 13:58-0400 Diastolic blood pressure 76 mm[Hg] [facility] 09-27-2023 13:58-0400 Heart rate 70 /min [facility] 09-27-2023 13:58-0400 Respiratory rate 12 /min [facility] 09-27-2023 13:58-0400 Systolic blood pressure 122 mm[Hg] [facility] 08-06-2023 15:26-0400 Body height 165.1 cm [facility] 08-06-2023 15:26-0400 Body mass index (BMI) [Ratio] 29.7 kg/m2 [facility] 08-06-2023 15:26-0400 Body temperature 97.5 [degF] [facility] 08-06-2023 15:26-0400 Body weight 81.19 kg [facility] 08-06-2023 15:26-0400 Diastolic blood pressure 74 mm[Hg] [facility] 08-06-2023 15:26-0400 Heart rate 71 /min [facility] 08-06-2023 15:26-0400 Respiratory rate 18 /min [facility] 08-06-2023 15:26-0400 SaO2% (BldA) [Mass fraction] 98 % [facility] 08-06-2023 15:26-0400 Systolic blood pressure 110 mm[Hg] [facility] 06-20-2023 14:49-0400 Body height 165.1 cm [facility] 06-20-2023 14:49-0400 Body mass index (BMI) [Ratio] 29.7 kg/m2 [facility] 06-20-2023 14:49-0400 Body weight 81.19 kg [facility] 06-20-2023 14:49-0400 Diastolic blood pressure 80 mm[Hg] [facility] 06-20-2023 14:49-0400 Heart rate 78 /min [facility] 06-20-2023 14:49-0400 SaO2% (BldA) [Mass fraction] 98 % [facility] 06-20-2023 14:49-0400 Systolic blood pressure 116 mm[Hg] [facility] Encounters Encounter Date Encounter Type Care Provider Facility Start: 02-11-2024 End: 02-11-2024 ambulatory Katie Lipscomb MD Facility: [place] Start: 02-01-2024 End: 02-01-2024 ambulatory [facility] Work Phone: Start: 02-01-2024 End: 02-01-2024 Patient encounter procedure [facility] Work Phone: Start: 09-27-2023 End: 09-27-2023 ambulatory [facility] Work Phone: Start: 09-27-2023 End: 09-27-2023 Patient encounter procedure [facility] Work Phone: Start: 08-14-2023 End: 08-15-2023 ambulatory PENELOPE GARCIA Facility:[facility] Start: 08-14-2023 End: 08-14-2023 Patient encounter procedure PENELOPE GARCIA [facility] Start: 08-06-2023 End: 08-06-2023 ambulatory [facility] Work Phone: Start: 08-06-2023 End: 08-06-2023 Patient encounter procedure [facility] Work Phone: Start: 06-20-2023 End: 06-20-2023 ambulatory [facility] Work Phone: Start: 06-20-2023 End: 06-20-2023 Patient encounter procedure [facility] Work Phone: Start: 06-06-2023 End: 06-06-2023 ambulatory [...] Available Start: 03-30-2023 End: 03-30-2023 ambulatory PIETER Jim SMITH Not Available Start: 03-23-2023 End: 03-23-2023 ambulatory PIETER Jim SMITH Not Available Start: 03-16-2023 End: 03-16-2023 [...] Activity Detail Author Start: 02-01-2024 Patient referral [facility] Work Phone: Start: 06-20-2023 Patient referral [facility] Work Phone: Patient Education Low back pain in adults [facility] Work Phone: Patient referral [facility] Work Phone: Heart Transthor[facility] Payers Date Payer Category Payer Unknown 2017 Medicaid [id number] 1985 Unknown [id number] 2.16.84 [id number] 1985 Unknown [id number] 2.16.84 0.1.380508.3.579.2.593 1985 Unknown [id number] 2.16.84 0.1.146265.3.579.2.593 1985 Unknown [id number] 2.16.84 0.1.682666.3.579.2.593 1985 Unknown [id number] 2.16.84 0.1.717932.3.579.2.593 1985 Unknown [id number] 2.16.84 0.1.268673.3.579.2.1259 1985 Unknown [id number] 2.16.84 0.1.709451.3.579.2.1259 1985 Unknown [id number] 2.16.84 0.1.717853.3.579.2.1259 1985 Unknown [id number] 2.16.84 0.1.360849.3.579.2.1259 1986 Unknown [id number] 2.16.84 0.1.152844.3.579.2.1259 1986 Unknown [id number] 2.16.84 0.1.110883.3.579.2.1259 1986 Unknown [id number] 2.16.840 .1.290658.3.579.2.1259 1986 Unknown [id number] 2.16.840 .1.226277.3.579.2.1259 1986 Unknown [id number] 2.16.840 .1.819827.3.579.2.1259 1986 Unknown [id number] 2.16.840 .1.937095.3.579.2.1259 1986 Unknown [id number] 2.16.840 .1.809640.3.579.2.1259 1985 Unknown [id number] 2.16.8 40.1.263127.3.579.2.727 1985 Unknown [id number] 2.16. 840.1.584146.3.579.2.196 1959 Unknown [id number] Medicaid [employer] [id number] Social History Date Type Detail Facility Start: 06-20-2023 Tobacco smoking stat [facility] Never smoked tobacco (finding) [facility] Start: 1985 Sex Assigned At Female F [facility] Tobacco smoking status [facility] Start: 02-01-2024 Tobacco smoking stat [facility] Ex-smoker (finding) [facility] Clinical Notes 04-07-2021 to 06-20-2023 Note Date & Type Note Facility 06-20-2023 Hospital Discharg e instructions Ambulatory OrdersReferral to Orthopedic Surgery Time Frame: 06/20/23, Location: None Selected [facility] Work Phone: 01-09-2022 Note PROCEDURE: XR ANKLE RT MIN 3 VIEWS HISTORY: Contusion of right ankle ; acute anterior right ankle pain since injury 16 days ago COMPARISON: XR ankle right 12/31/2021 FINDINGS: BONES:No fracture, acute abnormality, or significant arthropathy. SOFT TISSUES:No visible soft tissue swelling. EFFUSION:None visible. OTHER: Negative. IMPRESSION: 1. Normal examination. Electronically authenticated by: LIZANDRO DELACRUZ Date: 2022-01-09 16:12 [facility] 04-07-2021 Note PROCEDURE: XR FEMUR LT COMPARISON: None. HISTORY: Unspecified fall FINDINGS: BONES:No fracture, acute abnormality, or significant arthropathy. SOFT TISSUES:Negative. No visible soft tissue swelling. EFFUSION:None visible. OTHER: Negative. IMPRESSION: No acute abnormality Electronically authenticated by: TEODORO WHITLEY Date: 2021-04-07 09:14 [facility] Evaluation + Plan note No data available for this section [facility] Evaluation note Diagnosis Onset Date Anxiety acute Asthma acute Depression acute Irregular heart beat acute Maxillary sinusitis acute Scoliosis acute Trigger finger of right hand acute [facility] Work Phone: Evaluation note* Diagnosis Onset Date Resolution Status Anxiety acute Asthma acute Depression acute Irregular heart beat acute Maxillary sinusitis acute Scoliosis acute Trigger finger of right hand acute Congenital heart defect acut e Irregular heart beat acute Scoliosis acute [facility] Work Phone: Evaluation note* Diagnosis Onset Date Resolution Status Congenital heart defect acut e Deformity of right lower extremity acute Irregular heart beat acute Scoliosis acute Stress headaches acute Trigger finger of right hand acute Rash acute [facility] Work Phone: Evaluation note* Diagnosis Onset Date Resolution Status Anxiety acute Chronic lower back pain acut e Deformity of right lower extremity acute Depression acute GERD (gastroesophageal reflux disease) acute Stress headaches acute [facility] Work Phone: Hospital Discharge instructions No data available for this section [facility] Orders* Referral to Pain Management Time Frame: 02/01/24, Location: None Selected [facility] Work Phone: Progress note No data available for this section [facility] Summary Purpose Family History No Family History Records Found Relationship Condition Age at Onset Recorded Date/T donna Not Specified Seizure Unknown Not Specified Diabetes mellitus Unknown Hypertension Unknown Anxiety Unknown Depression Unknown Relationship Condition Age at Onset Recorded Date/T donna Not Specified Seizure Unknown mother Diabetes mellitus Unknown Hypertension Unknown Anxiety Unknown Depression Unknown Advance Directives No Advanced Directives Records Found Advance Directive Response Recorded Date/ Time Advance [...] DATE CREATED AUTHOR AUTHOR'S ORGANIZ ATION 06/07/2023 [facility] EPIC DATE CREATED AUTHOR AUTHOR'S ORGANIZ ATION 08/16/2023 Marvin Friedman [facility] DATE CREATED AUTHOR AUTHOR'S ORGANIZ ATION 02/19/2024 [facility] Care Teams (unrecognized sec tion and content) Team Status: Active Member Role Status Dates Penelope Garcia APRN SENIOR INSIGHT MANAGER-C Primary Care Provider Active Team Status: Inactive Member Role Status Dates Penelope Garcia APRN SENIOR INSIGHT MANAGER-C Primary Care Provider, Attending Provider Active Start: June 20, 2023 End: June 20, 2023 Team Status: Inactive Member Role Status Dates Penelope Garcia APRN SENIOR INSIGHT MANAGER-C Primary Care Provider, Attending Provider Active Start: August 06, 2023 End: August 06, 2023 Team Status: Inactive Member Role Status Dates Penelope Garcia APRN SENIOR INSIGHT MANAGER-C Primary Care Provider, Attending Provider Active Start: September 27, 2023 End: September 27, 2023 Team Status: Inactive Member Role Status Dates Penelope Garcia APRN SENIOR INSIGHT MANAGER-C Primary Care Provider, Attending Provider Active Start: [...] BE BASED ON THE PRIMARY CLINICAL RECORDS. [facility] [employer] [facility]. provides no warranty or guarantee of the accuracy or completeness of information in this document.
== END 2024-03-03 14:43 | disposition home or self-care (01) ==
LOC: MRI 14:42
PROVIDERS: Family Provider Physician Assistant; PCP Nurse Practitioner Family; Visit Provider Anesthesiology
DX: M48.062 Spinal stenosis, lumbar region with neurogenic claudication (principal); M48.02 Spinal stenosis, cervical region; M51.369 Other intervertebral disc degeneration, lumbar region without mention of lumbar back pain or lower extremity pain; M50.30 Other cervical disc degeneration, unspecified cervical region
CPT/HCPCS: 72141; 72148

== ENCOUNTER 2024-03-10 12:53 | Outpatient (OUT) | payer OTHER, SELFPAY ==
--- NOTE | 2024-03-10 13:49 | PM.CN ---
Consult Note: HPI Data of Consult Patient: known to practice within the last 3 years Consult date: 03/10/24 Requesting Physician: Katie Lipscomb MD Primary Care Provider: KARIN MALONE Family Provider: CASH DANIEL Consult Narrative Reason for consult: neck and bilateral upper extremity pain Narrative: 38yof who presents for assessment. continues to have low back, neck, bilateral upper extremity pain. cervical imaging reviewed, which is significant for multilevel stenosis, particularly at C5-6. she has continued in a series of provider directed home exercises >6 weeks, without benefit. uses otc pain meds as needed. denies adverse med side efffects. cc:: CC: Katie Lipscomb MD Review of Systems ROS Status of ROS 10 or more systems reviewed and unremarkable except as noted in history and below PFSH [facility] Medical History (Updated 03/10/24 @ 13:54 by Katie Lipscomb MD) Osteoarthritis ?M19.90 - Unspecified osteoarthritis, unspecified site (ICD-10) Carpal tunnel syndrome ?G56.00 - Carpal tunnel syndrome, unspecified upper limb (ICD-10) Acid reflux ?K21.9 - Gastro-esophageal reflux disease without esophagitis (ICD-10) Asthma ?J45.909 - Unspecified asthma, uncomplicated (ICD-10) Heart murmur ?R01.1 - Cardiac murmur, unspecified (ICD-10) Irregular heartbeat ?I49.9 - Cardiac arrhythmia, unspecified (ICD-10) Surgical History History of carpal tunnel release ?Z98.890 - Other specified postprocedural states (ICD-10) History of hysterectomy ?Z90.710 - Acquired absence of both cervix and uterus (ICD-10) History of tubal ligation ?Z98.51 - Tubal ligation status (ICD-10) History of surgery on arm ?Z98.890 - Other specified postprocedural states (ICD-10) Social History Smoking status: Former smoker Little interest or pleasure in doing things: not at all Feeling down, depressed, or hopeless: not at all Meds Home Medications and Allergies Home Medications ?Medication ?Instructions ?Recorded ?Confirmed ?Type albuterol sulfate 90 mcg/actuation 2 puff inhalation Q6H PRN wheezing 11/15/22 02/11/24 History aerosol inhaler ciclopirox 0.77 % topical cream 1 applic topical Q12H 11/15/22 02/11/24 History diclofenac sodium 1 % topical gel 2 g topical QID 11/15/22 02/11/24 History ciclopirox 1 % shampoo 5 ml topical QWEEK 04/16/23 02/11/24 History epinephrine 0.3 mg/0.3 mL 0.3 mg (0.3 mL) IM ONCE PRN 10/01/23 02/11/24 Rx injection, auto-injector allergic reaction #2 ea famotidine 20 mg tablet (Pepcid) 20 mg PO BID #10 tabs 10/01/23 02/11/24 Rx tizanidine 4 mg capsule (Zanaflex) 2 mg (1/2 x 4 mg) PO Q8H PRN 12/24/23 Rx muscle spasticity #10 caps aripiprazole 2 mg tablet 2 mg PO DAILY 02/11/24 02/11/24 History Allergies Allergy/AdvReac Type Severity Reaction Status Date / Time Penicillins Allergy Severe Verified 05/16/23 21:00 tramadol Allergy Severe Verified 05/16/23 21:00 bees Allergy Severe Uncoded 05/16/23 21:00 whooping cough vaccine AdvReac Severe itching Uncoded 05/16/23 21:00 Exam Narrative Exam Narrative: Psych-alert and oriented x 3.? Attentive and appropriate, constitutionally normal, displays normal mood and affect per situation.? There are no obvious deficits in memory, reasoning, or intellect.? Skin-no obvious rashes, bruising, or erythema noted to the patient's area of pain.? Extremities-upper extremities are warm with minimal edema and palpable pulses. Cervical- tenderness to palpation noted in the cervical spine and paraspinal musculature.? Pain is elicited with flexion, extension, and lateral rotation of the cervical spine.? Range of motion is diminished due to pain. Facet loading maneuvers are positive.? Strength-unremarkable and within normal limits with the exception to the left biceps. Sensory-no notable sensory deficits in the bilateral upper extremities to touch or pinprick with the exception to decreased sensation to the left C5, 6 dermatomal distribution.? Coordination remains intact.? Gait remains non-antalgic. Assessment and Plan Assessment and Plan (1) Cervical stenosis of spinal canal: (2) Cervical radiculopathy: Plan 38yof who presents for assessment. failed conservative measures, as noted. imaging reviewed, as noted. given symptoms and imaging, will have her undergo physical therapy twice weekly for 4-6 weeks. also discussed that she would likely benefit from bilateral c5-6 tfesi under fluoroscopic guidance. will discuss post PT. she is in agreement. meds reviewed, no changes. follow up after pt.
== END 2024-03-10 12:54 | disposition home or self-care (01) ==
LOC: PM 12:54
PROVIDERS: Family Provider Physician Assistant; PCP Nurse Practitioner Family; Visit Provider Anesthesiology
DX: M48.02 Spinal stenosis, cervical region (principal); M54.12 Radiculopathy, cervical region
CPT/HCPCS: G0463

== ENCOUNTER 2024-03-12 12:53 | Outpatient (RCR) | payer OTHER, SELFPAY | END 2024-04-01 08:16 | disposition home or self-care (01) | LOC: PT 12:53 | PROVIDERS: Family Provider Physician Assistant; PCP Nurse Practitioner Family; Visit Provider Nurse Practitioner | DX: M54.12 Radiculopathy, cervical region (principal); R29.3 Abnormal posture | CPT/HCPCS: 97110; 97161; 97530 ==

== ENCOUNTER 2024-04-21 11:02 | Emergency (ER) | payer OTHER, SELFPAY ==
[2024-04-21 11:11] VITALS: BP 140/86; PULSE 68; TEMP 36.6; O2SAT 98; BMI 30.8
--- NOTE | 2024-04-21 11:17 | XR_ITS ---
The [address] [address] Patient Name: DEBORAH ESPINOZA MRN: [id number] date: 1985 Sex: F Assigned Patient Location: ER Current Patient Location: ER Accession/Order Number: [id number] Exam Date: 04/21/2024 11:25 Report Date: 04/21/2024 11:45 At the request of: DOMO AGUILAR Procedure: XR foot RT min 3V EXAM: XR foot RT min 3V HISTORY: pain COMPARISON: None. XR/XR foot RT min 3V IMPRESSION: 1. No acute fracture or malalignment. 2. Sclerotic lesion within the calcaneus likely represents a benign bone island. Electronically authenticated by: SALOMON CAMPOVERDE Date: 04/21/2024 11:45
--- NOTE | 2024-04-21 11:17 | XR_ITS ---
The [address] [address] Patient Name: DEBORAH ESPINOZA MRN: [id number] date: 1985 Sex: F Assigned Patient Location: ER Current Patient Location: ER Accession/Order Number: [id number] Exam Date: 04/21/2024 11:25 Report Date: 04/21/2024 11:45 At the request of: DOMO AGUILAR Procedure: XR ankle RT min 3V EXAM: XR ankle RT min 3V HISTORY: pain XR/XR ankle RT min 3V IMPRESSION: 1. No acute fracture or malalignment. 2. No ankle joint effusion. 3. Sclerotic lesion within the calcaneus likely represents a benign bone island. Electronically authenticated by: SALOMON CAMPOVERDE Date: 04/21/2024 11:45
--- OUTSIDE RECORDS SUMMARY | 2024-04-21 11:19 | XMS_ITS | CCD ---
Author Organization [facility] Inform ion [facility] Care Team Providers Care Addiction Therapist Name Role Phone KOLBY KIRK Admitting Unavailable KOLBY KIRK Attending Unavailable MISC, DR PETERSON Primary Care Unavailable KOLBY KIRK Consulting Unavailable DALJIT RO Consulting Unavailable MISC, DR PETERSON Primary Care Unavailable HENNY WEBBER Admitting Unavailable KATHENNY CORTES Attending Unavailable WEST, DR TEODORO Sears Consulting [...] MUELLER Referring Unavailable VERNELL SMALLWOOD Attending Unavailable HEMCASH MUELLER Referring Unavailable VERNELL SMALLWOOD Attending Unavailable HEMCASH MUELLER Referring Unavailable SHANEL STARK Attending Unavailable HEMCASH MUELLER Referring Unavailable SHONDA PORTER Attending Unavailable HEMCASH MUELLER Referring Unavailable HEMCASH MUELLER Attending Unavailable PIETER SMITH Attending Unavailable HEMCASH MUELLER Referring Unavailable PIETER SMITH Attending Unavailable HEMCASH MUELLER Referring Unavailable HEMCASH MUELLER Attending Unavailable HEMCASH MUELLER Attending Unavailable ANJELICA MARTINS Primary Care Physician PENELOPE GARCIA Attending Unavailab PENELOPE Martinez Admitting Unavailab sejal Lipscomb MD, Katie Spivey Attending Unavailable Ruel BENAVIDEZ, Katie Spivey Attending Unavailable Allergies Allergy Classification Reported Allergen(s) Allergy Type Date of Onset Reaction(s) Facility (1 source) cefdinir Drug Allergy 5 [facility] (5 sources) Penicillins Drug allergy (disorder) 3 Hives [facility] (5 sources) predniSONE Drug Allergy 2 Heartburn [facility] (1 source) traMADol Drug Allergy 3 [facility] (1 source) Pertussis Immune Globulin Drug allergy (disorder) 3 [facility] (6 sources) spinach allergenic extract; Translations: [Spinach (substance)] Drug Allergy 4 Airway constriction (finding) [facility] (4 sources) bee venom protein (honey bee) Allergy to substance 4 Anaphylaxis [facility] (4 sources) diphtheria,pert ussis (acellular),te Allergy to substance 4 Unknown Reaction [facility] (2 sources) Bee/Wasp/Ant venom; Translations: [Bee Stings] Drug allergy [facility] (2 sources) Penicillin; Translations: [penicillin] Drug Allergy [facility] (2 sources) Pertussis Vaccine; Translations: [Whooping-cough vaccine] Drug Allergy Airway constriction (finding) [facility] (2 sources) Sodium Bicarbonate; Translations: [Baking soda] Drug Allergy Red color (finding) [facility] Medications Current Medications Medication Drug [...] MG PO Daily February 01, 2024 9:44am [id number] 0.3 ml EPINEPHrine 1 mg/ml auto-injector (4 [...] PO Every 6 hours June 20, 2023 12:00December 25, 2023 11:24am Singulair (1 source) Leukotriene [...] mGy = na DAP = na Normal [facility] Consent for Treatmenton 07-31 Consent for Treatment [id number] [id number] Normal [facility] Physician Orderon 08-14-2023 Physician Order [id number] 00TIFF Normal [facility] XR ANKLE RT MIN 3 VIEWSon XR [...] by: Santy RO Date: 2021-12-31 22:43 Normal [facility] CT NECK [facility] W CONon CT NECK ST W CON EXAMINATION: CT [...] by: LIZANDRO DELACRUZ Date: 2021-09-13 17:01 Normal [facility] XR HIP LT 2 3V W [...] by: SANNA HOOD Date: 2021-04-18 11:23 Normal [facility] Vital Signs Date Time Vital Sign Value Performing Clinician Faci lity 02-01-2024 [id number] Body height 165.1 cm [facility] 02-01-2024 09:28-0400 Body mass index (BMI) [Ratio] 30.9 kg/m2 [facility] 02-01-2024 09:28-0400 Body temperature 96.8 [degF] [facility] 02-01-2024 09:28-0400 Body weight 84.48 kg [facility] 02-01-2024 09:28-0400 Diastolic blood pressure 76 mm[Hg] [facility] 02-01-2024 09:28-0400 Heart rate 70 /min [facility] 02-01-2024 09:28-0400 SaO2% (BldA) [Mass fraction] 98 % [facility] 02-01-2024 09:28-0400 Systolic blood pressure 124 mm[Hg] [facility] 09-27-2023 13:58-0400 Body height 165.1 cm [facility] 09-27-2023 13:58-0400 Body mass index (BMI) [Ratio] 30.4 kg/m2 [facility] 09-27-2023 13:58-0400 Body weight 83.06 kg [facility] 09-27-2023 13:58-0400 Diastolic blood pressure 76 mm[Hg] [facility] 09-27-2023 13:58-0400 Heart rate 70 /min [facility] 09-27-2023 13:58-0400 Respiratory rate 12 /min [facility] 09-27-2023 13:58-0400 Systolic blood pressure 122 mm[Hg] [facility] 08-06-2023 15:26-0400 Body height 165.1 cm [facility] 08-06-2023 15:26-0400 Body mass index (BMI) [Ratio] 29.7 kg/m2 [facility] 08-06-2023 15:26-0400 Body temperature 97.5 [degF] [facility] 08-06-2023 15:26-0400 Body weight 81.19 kg [facility] 08-06-2023 15:26-0400 Diastolic blood pressure 74 mm[Hg] [facility] 08-06-2023 15:26-0400 Heart rate 71 /min [facility] 08-06-2023 15:26-0400 Respiratory rate 18 /min [facility] 08-06-2023 15:26-0400 SaO2% (BldA) [Mass fraction] 98 % [facility] 08-06-2023 15:26-0400 Systolic blood pressure 110 mm[Hg] [facility] 06-20-2023 14:49-0400 Body height 165.1 cm [facility] 06-20-2023 14:49-0400 Body mass index (BMI) [Ratio] 29.7 kg/m2 [facility] 06-20-2023 14:49-0400 Body weight 81.19 kg [facility] 06-20-2023 14:49-0400 Diastolic blood pressure 80 mm[Hg] [facility] 06-20-2023 14:49-0400 Heart rate 78 /min [facility] 06-20-2023 14:49-0400 SaO2% (BldA) [Mass fraction] 98 % [facility] 06-20-2023 14:49-0400 Systolic blood pressure 116 mm[Hg] [facility] Encounters Encounter Date Encounter Type Care Provider Facility Start: 03-10-2024 End: 03-10-2024 ambulatory Katie Lipscomb MD Facility:[facility] Start: 02-11-2024 End: 02-11-2024 ambulatory Katie Lipscomb MD Facility:[facility] Start: 02-01-2024 End: 02-01-2024 ambulatory [facility] Work Phone: Start: 02-01-2024 End: 02-01-2024 Patient encounter procedure [facility] Work Phone: Start: 09-27-2023 End: 09-27-2023 ambulatory [facility] Work Phone: Start: 09-27-2023 End: 09-27-2023 Patient encounter procedure [facility] Work Phone: Start: 08-14-2023 End: 08-15-2023 ambulatory PENELOPE GARCIA Facility:[facility] Start: 08-14-2023 End: 08-14-2023 Patient encounter procedure PENELOPE GARCIA [facility] Start: 08-06-2023 End: 08-06-2023 ambulatory [facility] Work Phone: Start: 08-06-2023 End: 08-06-2023 Patient encounter procedure [facility] Work Phone: Start: 06-20-2023 End: 06-20-2023 ambulatory [facility] Work Phone: Start: 06-20-2023 End: 06-20-2023 Patient encounter procedure [facility] Work Phone: Start: 06-06-2023 End: 06-06-2023 ambulatory [...] Activity Detail Author Start: 02-01-2024 Patient referral [facility] Work Phone: Start: 06-20-2023 Patient referral [facility] Work Phone: Patient Education Low back pain in adults [facility] Work Phone: Patient referral [facility] Work Phone: [facility] Payers Date Payer Category Payer Unknown 2017 Medicaid [id number] 1985 Unknown [id number] 2.16.84 [id number] 1985 Unknown [id number] 2.16.84 0.1.435817.3.579.2.593 1985 Unknown [id number] 2.16.84 0.1.985460.3.579.2.593 1985 Unknown [id number] 2.16.84 0.1.537309.3.579.2.593 1985 Unknown [id number] 2.16.84 0.1.428772.3.579.2.593 1985 Unknown [id number] 2.16.84 0.1.039299.3.579.2.1259 1985 Unknown [id number] 2.16.84 0.1.521583.3.579.2.1259 1985 Unknown [id number] 2.16.84 0.1.043558.3.579.2.1259 1985 Unknown [id number] 2.16.84 0.1.169859.3.579.2.1259 1985 Unknown [id number] 2.16.84 0.1.201300.3.579.2.1259 1986 Unknown [id number] 2.16.84 0.1.392128.3.579.2.1259 1986 Unknown [id number] 2.16.840 .1.042176.3.579.2.1259 1985 Unknown [id number] 2.16.840 .1.172269.3.579.2.1259 1986 Unknown [id number] 2.16.840 .1.759978.3.579.2.1259 1986 Unknown [id number] 2.16.840 .1.648045.3.579.2.1259 1986 Unknown [id number] 2.16.840 .1.633466.3.579.2.1259 1986 Unknown [id number] 2.16.8 40.1.406650.3.579.2.727 1985 Unknown [id number] 2.16. 840.1.688650.3.579.2.196 1985 Unknown [id number] 2.16. 840.1.811294.3.579.2.196 1959 Unknown [id number] Medicaid [employer] [id number] Social History Date Type Detail Facility Start: 06-20-2023 Tobacco smoking stat [facility] Never smoked tobacco (finding) [facility] Start: 1985 Sex Assigned At Female [facility] Tobacco smoking status [facility] Start: 02-01-2024 Tobacco smoking stat [facility] Ex-smoker (finding) [facility] Clinical Notes 04-07-2021 to 06-20-2023 Note Date & Type Note Facility 06-20-2023 Hospital Discharg e instructions Ambulatory OrdersReferral to Orthopedic Surgery Time Frame: 06/20/23, Location: None Selected [facility] Work Phone: 01-09-2022 Note PROCEDURE: XR ANKLE RT MIN 3 VIEWS HISTORY: Contusion of right ankle ; acute anterior right ankle pain since injury 16 days ago COMPARISON: XR ankle right 12/31/2021 FINDINGS: BONES:No fracture, acute abnormality, or significant arthropathy. SOFT TISSUES:No visible soft tissue swelling. EFFUSION:None visible. OTHER: Negative. IMPRESSION: 1. Normal examination. Electronically authenticated by: LIZANDRO DELACRUZ Date: 2022-01-09 16:12 [facility] 04-07-2021 Note PROCEDURE: XR FEMUR LT COMPARISON: None. HISTORY: Unspecified fall FINDINGS: BONES:No fracture, acute abnormality, or significant arthropathy. SOFT TISSUES:Negative. No visible soft tissue swelling. EFFUSION:None visible. OTHER: Negative. IMPRESSION: No acute abnormality Electronically authenticated by: TEODORO WHITLEY Date: 2021-04-07 09:14 [facility] Evaluation + Plan note No data available for this section [facility] Evaluation note Diagnosis Onset Date Anxiety acute Asthma acute Depression acute Irregular heart beat acute Maxillary sinusitis acute Scoliosis acute Trigger finger of right hand acute [facility] Work Phone: Evaluation note* Diagnosis Onset Date Resolution Status Anxiety acute Asthma acute Depression acute Irregular heart beat acute Maxillary sinusitis acute Scoliosis acute Trigger finger of right hand acute Congenital heart defect acut e Irregular heart beat acute Scoliosis acute [facility] Work Phone: Evaluation note* Diagnosis Onset Date Resolution Status Congenital heart defect acut e Deformity of right lower extremity acute Irregular heart beat acute Scoliosis acute Stress headaches acute Trigger finger of right hand acute Rash acute [facility] Work Phone: Evaluation note* Diagnosis Onset Date Resolution Status Anxiety acute Chronic lower back pain acut e Deformity of right lower extremity acute Depression acute GERD (gastroesophageal reflux disease) acute Stress headaches acute [facility] Work Phone: Hospital Discharge instructions No data available for this section [facility] Referral to Pain Management Time Frame: 02/01/24, Location: None [facility] Work Phone: Progress note No data available for this section [facility] Summary Purpose Family History No Family History [...] DATE CREATED AUTHOR AUTHOR'S ORGANIZ ATION 06/07/2023 [facility] EPIC DATE CREATED AUTHOR AUTHOR'S ORGANIZ ATION 08/16/2023 [facility] DATE CREATED AUTHOR AUTHOR'S ORGANIZ ATION 03/16/2024 [facility] Care Teams (unrecognized sec tion and content) Team Status: Active Member Role Status Dates Penelope Garcia APRN DISTRICT LEADER-C Primary Care Provider Active Team Status: Inactive Member Role Status Dates Penelope Garcia APRN DISTRICT LEADER-C Primary Care Provider, Attending Provider Active Start: June 20, 2023 End: June 20, 2023 Team Status: Inactive Member Role Status Dates Penelope Garcia APRN DISTRICT LEADER-[place] Primary Care Provider, Attending Provider Active Start: August 06, 2023 End: August 06, 2023 Team Status: Inactive Member Role Status Dates Penelope Garcia APRN NP-[place] Primary Care Provider, Attending Provider Active Start: September 27, 2023 End: September 27, 2023 Team Status: Inactive Member Role Status Dates Penelope Garcia APRN DISTRICT LEADER-C Primary Care Provider, Attending Provider Active Start: [...] BE BASED ON THE PRIMARY CLINICAL RECORDS. [facility] [employer] [facility]. provides no warranty or guarantee of the accuracy or completeness of information in this document.
[2024-04-21] MEDS: KETOROLAC TROMETHAMINE 30 MG/ML VIAL IM (12:10)
--- NOTE | 2024-04-21 14:41 | ED.LOWEXI1 ---
HPI HPI - Extremity Injury (Lower) General Chief Complaint: Extremity Injury, Lower Stated Complaint: RIGHT FOOT PAIN Time Seen by Provider: 04/21/24 11:17 Source: patient Mode of arrival: Wheelchair Limitations: no limitations History of Present Illness HPI Narrative: The patient is coming today after she twisted her right ankle while standing up from sitting position, the patient has been having some swelling in the right ankle and she has been having pain when putting weight on her right leg Related Data Home Medications ?Medication ?Instructions ?Recorded ?Confirmed albuterol sulfate 90 mcg/actuation 2 puff inhalation Q6H PRN wheezing 11/15/22 02/11/24 aerosol inhaler ciclopirox 0.77 % topical cream 1 applic topical Q12H 11/15/22 02/11/24 diclofenac sodium 1 % topical gel 2 g topical QID 11/15/22 02/11/24 ciclopirox 1 % shampoo 5 ml topical QWEEK 04/16/23 02/11/24 aripiprazole 2 mg tablet 2 mg PO DAILY 02/11/24 02/11/24 Previous Rx's ?Medication ?Instructions ?Recorded epinephrine 0.3 mg/0.3 mL 0.3 mg (0.3 mL) IM ONCE PRN 10/01/23 injection, auto-injector allergic reaction #2 ea famotidine 20 mg tablet (Pepcid) 20 mg PO BID #10 tabs 10/01/23 tizanidine 4 mg capsule (Zanaflex) 2 mg (1/2 x 4 mg) PO Q8H PRN 12/24/23 muscle spasticity #10 caps naproxen 250 mg tablet 250 mg PO Q12H PRN pain #14 tabs 04/21/24 Allergies Allergy/AdvReac Type Severity Reaction Status Date / Time Penicillins Allergy Severe Rash Verified 04/21/24 11:10 tramadol Allergy Severe Swelling Verified 04/21/24 11:10 of Lip/Tongue/Throat bees Allergy Severe Anaphylaxis Uncoded 04/21/24 11:10 whooping cough vaccine AdvReac Severe itching Uncoded 04/21/24 11:10 Opioid HPI Opioid Management Most Recent Pain and Opioid Data: Last Pain Scale 4 04/21/24 12:10 04/21/24 Last MAR Pain Assessment 04/21/24 12:10 Review of Systems ROS Status of ROS 10 or more systems reviewed and unremarkable except as noted in history and below [facility] Medical History (Updated 04/21/24 @ 12:01 by Tammy Meadows MD) Osteoarthritis ?M19.90 - Unspecified osteoarthritis, unspecified site (ICD-10) Carpal tunnel syndrome ?G56.00 - Carpal tunnel syndrome, unspecified upper limb (ICD-10) Acid reflux ?K21.9 - Gastro-esophageal reflux disease without esophagitis (ICD-10) Asthma ?J45.909 - Unspecified asthma, uncomplicated (ICD-10) Heart murmur ?R01.1 - Cardiac murmur, unspecified (ICD-10) Irregular heartbeat ?I49.9 - Cardiac arrhythmia, unspecified (ICD-10) Surgical History History of carpal tunnel release ?Z98.890 - Other specified postprocedural states (ICD-10) History of hysterectomy ?Z90.710 - Acquired absence of both cervix and uterus (ICD-10) History of tubal ligation ?Z98.51 - Tubal ligation status (ICD-10) History of surgery on arm ?Z98.890 - Other specified postprocedural states (ICD-10) Social History Smoking status: Former smoker Little interest or pleasure in doing things: not at all Feeling down, depressed, or hopeless: not at all Exam Narrative Exam Narrative: Nurses notes and vital signs reviewed and patient is not hypoxic. Right lower extremity : the patient have some edema around the right lateral malleolus with mild tenderness: General: Well-appearing and in no apparent distress. Skin: Warm, dry, no pallor noted. No rash. Head: Normocephalic, atraumatic. Neck: Supple, non-tender. Eye: Pupils are equal, round and EOMI. No scleral icterus. Ears, Nose, Mouth, and Throat: TM are clear, no nasal mucosal hypertrophy. Oral mucosa is moist, no posterior oropharynx erythema, uvula is mid-line Cardiovascular: Regular Rate and Rhythm without murmur, gallop or rub. Respiratory: No accessory muscle use or respiratory distress. Lungs are clear to auscultation, no wheezing, rales or rhonchi Chest Wall: no tenderness Constitutional Vital Signs, click to edit/add: Last Vital Signs Temp 97.9 F 04/21/24 11:11 Pulse 68 04/21/24 11:11 Resp 04/21/24 11:11 BP 140/86 04/21/24 11:11 Pulse Ox 98 04/21/24 11:11 O2 Del Method Room Air 04/21/24 11:11 Course Vital Signs Vital signs: Vital Signs Temperature 97.9 F 04/21/24 11:11 Pulse Rate 68 04/21/24 11:11 Respiratory Rate 04/21/24 11:11 Blood Pressure 140/86 04/21/24 11:11 Pulse Oximetry 98 04/21/24 11:11 Oxygen Delivery Method Room Air 04/21/24 11:11 Temperature 97.9 F 04/21/24 11:11 Pulse Rate 04/21/24 11:11 Respiratory Rate 04/21/24 11:11 Blood Pressure 140/86 04/21/24 11:11 Pulse Oximetry 98 04/21/24 11:11 Oxygen Delivery Method Room Air 04/21/24 11:11 MDM - Extremity Injury (Lower) MDM Narrative Medical decision making narrative: X-ray of the patient ankle as well as x-ray of the foot showed no acute pathology Right now the patient was provided with a walking boot and referred to podiatry as outpatient Elevation rest and NSAIDs The patient is to follow up with primary care physician in next 2-3 days or to return to the emergency department should any of the signs or symptoms worsen or new symptoms develop. The patient agrees with the following Diagnosis and Treatment plan and the patient will be discharged home. Discharge Plan Discharge Chief Complaint: Extremity Injury, Lower Clinical Impression: Ankle sprain Patient Disposition: Home, Self-Care Time of Disposition Decision: 12:01 Condition: Good Prescriptions / Home Meds: New naproxen 250 mg tablet 250 mg PO Q12H PRN (Reason: pain) Qty: 14 0RF No Action albuterol sulfate 90 mcg/actuation HFA aerosol inhaler 2 puff INHALATION Q6H PRN (Reason: wheezing) ciclopirox 0.77 % cream 1 applic TOPICAL Q12H diclofenac sodium 1 % gel 2 g topical QID Rx Instructions: apply to single elbow, wrist or hand; for hand includes palm/fingers/back of hand aripiprazole 2 mg tablet 2 mg PO DAILY ciclopirox 1 % shampoo 5 ml TOPICAL QWEEK famotidine [Pepcid] 20 mg tablet 20 mg PO BID Qty: 10 0RF epinephrine 0.3 mg/0.3 mL auto-injector 0.3 mg IM ONCE PRN (Reason: allergic reaction) Qty: 2 0RF tizanidine [Zanaflex] 4 mg capsule 2 mg PO Q8H PRN (Reason: muscle spasticity) Qty: 10 0RF Print Language: St Helenian Instructions: Ankle Sprain (DC) Referrals: KARIN MALONE [Primary Care Provider] - 1 week Nii Carnes DPM [Physician] - 1 week Discharge Date/Time: 04/21/24 12:20
== END 2024-04-21 12:20 | disposition home or self-care (01) ==
PROVIDERS: Emergency Provider Emergency Medicine; Family Provider Physician Assistant; PCP Nurse Practitioner Family
DX: S93.401A Sprain of unspecified ligament of right ankle, initial encounter (principal); X50.1XXA Overexertion from prolonged static or awkward postures, initial encounter; Z90.710 Acquired absence of both cervix and uterus; Z98.51 Tubal ligation status; Z87.891 Personal history of nicotine dependence
CPT/HCPCS: 73610; 73630; 96372; 99284; J1885

== ENCOUNTER 2024-04-28 07:26 | Day surgery (SDC) | payer OTHER, SELFPAY ==
--- OUTSIDE RECORDS SUMMARY | 2024-04-28 07:29 | XMS_ITS | CCD ---
Author Organization [facility] Inform ion [facility] Care Team Providers Care Desktop Analyst Name Role Phone KOLBY KIRK Admitting Unavailable KOLBY KIRK Attending Unavailable MISC, DR PETERSON Primary Care Unavailable KOLBY KIRK Consulting Unavailable DALJIT RO Consulting Unavailable MISC, DR PTEERSON Primary Care Unavailable HENNY WEBBER Admitting Unavailable [...] Attending Unavailable ANJELICA MARTINS Primary Care Physician [phone] PENELOPE GARCIA Attending Unavailab PENELOPE Martinez Admitting Unavailab sejal Lipscomb MD, Katie Spivey Attending Unavailable Ruel BENAVIDEZ, Katie Spivey Attending Unavailable Allergies Allergy Classification Reported Allergen(s) Allergy Type Date of Onset Reaction(s) Facility (1 source) cefdinir Drug Allergy 5 [facility] Rep[facility] (5 sources) Penicillins Drug allergy (disorder) 3 Hives [facility] (5 sources) predniSONE Drug Allergy 2 Heartburn [facility] (1 source) traMADol Drug Allergy 3 [facility] (1 source) Pertussis Immune Globulin Drug allergy (disorder) 3 [facility] (6 sources) spinach allergenic extract; Translations: [Spinach (substance)] Drug Allergy 4 Airway constriction (finding) [facility] (4 sources) bee venom protein (honey bee) Allergy to substance 4 Anaphylaxis [facility] (4 sources) diphtheria,pert ussis (acellular),te Allergy to substance 4 Unknown Reaction [facility] (2 sources) Bee/Wasp/Ant venom; Translations: [Bee Stings] Drug allergy [facility] (2 sources) Penicillin; Translations: [penicillin] Drug Allergy [facility] (2 sources) Pertussis Vaccine; Translations: [Whooping-cough vaccine] Drug Allergy Airway constriction (finding) [facility] (2 sources) Sodium Bicarbonate; Translations: [Baking soda] Drug Allergy Red color (finding) [facility] Medications Current Medications Medication Drug Class(es) [...] MG PO Daily February 01, 2024 9:44am [id number] 0.3 ml EPINEPHrine 1 mg/ml auto-injector (4 [...] mGy = na DAP = na Normal [facility] Consent for Treatmenton 07-31 Consent for Treatment [id number] [id number] Normal [facility] Physician Orderon 08-14-2023 Physician Order [id number] 00TIFF Normal [facility] XR ANKLE RT MIN 3 VIEWSon [...] by: Santy RO Date: 2021-12-31 22:43 Normal [facility] CT NECK ST W CONon CT [...] lity 02-01-2024 [id number] Body height 165.1 cm [facility] 02-01-2024 09:28-0400 Body mass index (BMI) [Ratio] 30.9 kg/m2 [facility] 02-01-2024 09:28-0400 Body temperature 96.8 [degF] [facility] 02-01-2024 09:28-0400 Body weight 84.48 kg [facility] 02-01-2024 09:28-0400 Diastolic blood pressure 76 mm[Hg] [facility] 02-01-2024 09:28-0400 Heart rate 70 /min [facility] 02-01-2024 09:28-0400 SaO2% (BldA) [Mass fraction] 98 % [facility] 02-01-2024 09:28-0400 Systolic blood pressure 124 mm[Hg] [facility] 09-27-2023 13:58-0400 Body height 165.1 cm [facility] 09-27-2023 13:58-0400 Body mass index (BMI) [Ratio] 30.4 kg/m2 [facility] 09-27-2023 13:58-0400 Body weight 83.06 kg [facility] 09-27-2023 13:58-0400 Diastolic blood pressure 76 mm[Hg] [facility] 09-27-2023 13:58-0400 Heart rate 70 /min [facility] 09-27-2023 13:58-0400 Respiratory rate 12 /min [facility] 09-27-2023 13:58-0400 Systolic blood pressure 122 mm[Hg] [facility] 08-06-2023 15:26-0400 Body height 165.1 cm [facility] 08-06-2023 15:26-0400 Body mass index (BMI) [Ratio] 29.7 kg/m2 [facility] 08-06-2023 15:26-0400 Body temperature 97.5 [degF] [facility] 08-06-2023 15:26-0400 Body weight 81.19 kg [facility] 08-06-2023 15:26-0400 Diastolic blood pressure 74 mm[Hg] [facility] 08-06-2023 15:26-0400 Heart rate 71 /min [facility] 08-06-2023 15:26-0400 Respiratory rate 18 /min [facility] 08-06-2023 15:26-0400 SaO2% (BldA) [Mass fraction] 98 % [facility] 08-06-2023 15:26-0400 Systolic blood pressure 110 mm[Hg] [facility] 06-20-2023 14:49-0400 Body height 165.1 cm [facility] 06-20-2023 14:49-0400 Body mass index (BMI) [Ratio] 29.7 kg/m2 [facility] 06-20-2023 14:49-0400 Body weight 81.19 kg [facility] 06-20-2023 14:49-0400 Diastolic blood pressure 80 mm[Hg] [facility] 06-20-2023 14:49-0400 Heart rate 78 /min [facility] 06-20-2023 14:49-0400 SaO2% (BldA) [Mass fraction] 98 % [facility] 06-20-2023 14:49-0400 Systolic blood pressure 116 mm[Hg] [facility] Encounters Encounter Date Encounter Type Care Provider Facility Start: 03-10-2024 End: 03-10-2024 ambulatory Katie Lipscomb MD Facility:[facility] Start: 02-11-2024 End: 02-11-2024 ambulatory Katie Lipscomb MD Facility:[facility] Start: 02-01-2024 End: 02-01-2024 ambulatory [facility] Work Phone: Start: 02-01-2024 End: 02-01-2024 Patient encounter procedure [facility] Work Phone: Start: 09-27-2023 End: 09-27-2023 ambulatory [facility] Work Phone: Start: 09-27-2023 End: 09-27-2023 Patient encounter procedure [facility] Work Phone: Start: 08-14-2023 End: 08-15-2023 ambulatory PENELOPE GARCIA Facility[place] Start: 08-14-2023 End: 08-14-2023 Patient encounter procedure PENELOPE GARCIA [facility] Start: 08-06-2023 End: 08-06-2023 ambulatory [facility] Work Phone: Start: 08-06-2023 End: 08-06-2023 Patient encounter procedure [facility] Work Phone: Start: 06-20-2023 End: 06-20-2023 ambulatory [facility] Work Phone: Start: 06-20-2023 End: 06-20-2023 Patient encounter procedure [facility] Work Phone: Start: 06-06-2023 End: 06-06-2023 ambulatory [...] Activity Detail Author Start: 02-01-2024 Patient referral [facility] Work Phone: Start: 06-20-2023 Patient referral [facility] Work Phone: Patient Education Low back pain in adults [facility] Work Phone: Patient referral [facility] Work Phone: [facility] Payers Date Payer Category Payer Unknown 2017 Medicaid [id number] 1985 Unknown [id number] 2.16.84 [id number] 1985 Unknown [id number] 2.16.84 0.1.442148.3.579.2.593 1986 Unknown [id number] 2.16.84 0.1.852748.3.579.2.593 1986 Unknown [id number] 2.16.84 0.1.639700.3.579.2.593 1986 Unknown [id number] 2.16.84 0.1.513865.3.579.2.593 1986 Unknown [id number] 2.16.84 0.1.897748.3.579.2.1259 1986 Unknown [id number] 2.16.84 0.1.509637.3.579.2.1259 1986 Unknown [id number] 2.16.84 0.1.519106.3.579.2.1259 1986 Unknown [id number] 2.16.84 0.1.559883.3.579.2.1259 1986 Unknown [id number] 2.16.84 0.1.883877.3.579.2.1259 1986 Unknown [id number] 2.16.84 0.1.031388.3.579.2.1259 1986 Unknown [id number] 2.16.840 .1.182233.3.579.2.1259 1986 Unknown [id number] 2.16.840 .1.754096.3.579.2.1259 1986 Unknown [id number] 2.16.840 .1.132999.3.579.2.1259 1986 Unknown [id number] 2.16.840 .1.524697.3.579.2.1259 1986 Unknown [id number] 2.16.840 .1.946560.3.579.2.1259 1986 Unknown [id number] 2.16.8 40.1.393099.3.579.2.727 1986 Unknown [id number] 2.16. 840.1.531821.3.579.2.196 1986 Unknown [id number] 2.16. 840.1.926151.3.579.2.196 1959 Unknown [id number] Medicaid [employer] [id number] Social History Date Type Detail Facility Start: 06-20-2023 Tobacco smoking stat [facility] Never smoked tobacco (finding) [facility] Start: 1985 Sex Assigned At Female F [facility] Tobacco smoking status [facility] Start: 02-01-2024 Tobacco smoking stat [facility] Ex-smoker (finding) [facility] Clinical Notes 04-07-2021 to 06-20-2023 Note Date & Type Note Facility 06-20-2023 Hospital Discharg e instructions Ambulatory OrdersReferral to Orthopedic Surgery Time Frame: 06/20/23, Location: None Selected [facility] Work Phone: 01-09-2022 Note PROCEDURE: XR ANKLE [...] DELACRUZ Date: 2022-01-09 16:12 [facility] 04-07-2021 Note PROCEDURE: XR FEMUR LT COMPARISON: None. HISTORY: Unspecified fall FINDINGS: BONES:No fracture, acute abnormality, or significant arthropathy. SOFT TISSUES:Negative. No visible soft tissue swelling. EFFUSION:None visible. OTHER: Negative. IMPRESSION: No acute abnormality Electronically authenticated by: TEODORO WHITLEY Date: 2021-04-07 09:14 [facility] Evaluation + Plan note No data available for this section [facility] Evaluation note Diagnosis Onset Date Anxiety acute Asthma acute Depression acute Irregular heart beat acute Maxillary sinusitis acute Scoliosis acute Trigger finger of right hand acute [facility] Work Phone: Evaluation note* Diagnosis Onset Date Resolution Status Anxiety acute Asthma acute Depression acute Irregular heart beat acute Maxillary sinusitis acute Scoliosis acute Trigger finger of right hand acute Congenital heart defect acut e Irregular heart beat acute Scoliosis acute [facility] Work Phone: Evaluation note* Diagnosis Onset Date Resolution Status Congenital heart defect acut e Deformity of right lower extremity acute Irregular heart beat acute Scoliosis acute Stress headaches acute Trigger finger of right hand acute Rash acute [facility] Work Phone: Evaluation note* Diagnosis Onset Date Resolution Status Anxiety acute Chronic lower back pain acut e Deformity of right lower extremity acute Depression acute GERD (gastroesophageal reflux disease) acute Stress headaches acute [facility] Work Phone: Hospital Discharge instructions No data available for this section [facility]* Referral to Pain Management Time Frame: 02/01/24, Location: None [facility] Work Phone: Progress note No data available for this section [facility] Summary Purpose Family History No Family [...] DATE CREATED AUTHOR AUTHOR'S ORGANIZ ATION 06/07/2023 [facility] EPIC DATE CREATED AUTHOR AUTHOR'S ORGANIZ ATION 08/16/2023 [facility] DATE CREATED AUTHOR AUTHOR'S ORGANIZ ATION 03/16/2024 [facility] Care Teams (unrecognized sec tion and content) Team Status: Active Member Role Status Dates Penelope Garcia APRN BUSINESS PROCESS CONSULTANT-C Primary Care Provider Active Team Status: Inactive Member Role Status Dates Penelope Garcia APRN BUSINESS PROCESS CONSULTANT-C Primary Care Provider, Attending Provider Active Start: June 20, 2023 End: June 20, 2023 Team Status: Inactive Member Role Status Dates Penelope Garcia APRN BUSINESS PROCESS CONSULTANT-Garrett Primary Care Provider, Attending Provider Active Start: August 06, 2023 End: August 06, 2023 Team Status: Inactive Member Role Status Dates Penelope Garcia APRN NP-Garrett Primary Care Provider, Attending Provider Active Start: September 27, 2023 End: September 27, 2023 Team Status: Inactive Member Role Status Dates Penelope Garcia APRN BUSINESS PROCESS CONSULTANT-C Primary Care Provider, Attending Provider Active Start: [...] BE BASED ON THE PRIMARY CLINICAL RECORDS. [facility] [employer] [facility]. provides no warranty or guarantee of the accuracy or completeness of information in this document.
[2024-04-28 07:33] VITALS: BP 133/93; PULSE 72; TEMP 36.7; O2SAT 97
[2024-04-28 08:25] VITALS: BP 155/65; PULSE 76; O2SAT 100
[2024-04-28 08:26] VITALS: BP 144/87; PULSE 87; O2SAT 99
[2024-04-28] MEDS: BUPIVACAINE HCL 0.25% PF 25 MG/10 ML VIAL INJ (08:30)
--- NOTE | 2024-04-28 08:30 | W.PM.PROCNOT ---
Date of procedure: 04/28/24 Pre-op diagnosis: M54.12 Post-op diagnosis: same as pre-op Procedure: Procedure: Bilateral C5-6 transforaminal epidural steroid injection Medications: Bupivacaine 0.25% 1cc, lidocaine 2% 1cc, dexamethasone 10mg The patient was seen and examined in the preoperative holding area.? Informed consent was obtained and placed on the chart.? Patient was brought to the medical procedure unit and placed in the prone position where a timeout was completed verifying the correct patient, procedure site, position, and planned special equipment using sterile aseptic technique.? Under direct fluoroscopic visualization a 25-gauge Quincke tipped spinal needle was advanced at level left C5-6 to the designated neural foramen where contrast dye was injected to show adequate spread.? There was no evidence of vascular or adverse uptake.? Epidural spread was appreciated.? The above-mentioned injectate was then placed in a 1.5 mL aliquot preceded by negative aspiration.? The needle was removed. The same procedure, at the same level, was completed on the opposite side. ? Patient was taken to the postprocedural recovery area and monitored for an appropriate length of time before found suitable for discharge in the accompaniment of a responsible adult. Anesthesia: Local Surgeon: Katie Lipscomb Pathology: none sent Condition: stable Disposition: no change
[2024-04-28] MEDS: DEXAMETHASONE SOD PHOS 10 MG/ML VIAL INJ (08:31)
[2024-04-28] MEDS: IOHEXOL 240 MG/ML - 10 ML VIAL 12 MG INJ (08:31)
[2024-04-28] MEDS: LIDOCAINE HCL 2% 400 MG/20 ML MDV INJ (08:31)
== END 2024-04-28 08:36 | disposition home or self-care (01) ==
LOC: SURGOUT 07:26
PROVIDERS: Family Provider Physician Assistant; PCP Nurse Practitioner Family; Visit Provider Anesthesiology
DX: M54.12 Radiculopathy, cervical region (principal)
CPT/HCPCS: 64479; J0665; J1100; Q9966

== ENCOUNTER 2024-04-30 14:13 | Outpatient (OUT) | payer OTHER, SELFPAY ==
[2024-04-30 14:49] LABS: Basophils Absolute Auto 0.1 10^3/uL (0.0-0.1); Basophils Percent Auto 0.7 % (0.2-2.0); Eosinophils Absolute Auto 0.1 10^3/uL (0.0-0.7); Hemoglobin 14.5 g/dL (12.0-16.0); Immature Granulocytes Abs Auto 0.01 10^3/uL (0.00-0.03); Immature Granulocytes Pct Auto 0.1 % (0.0-0.5); Lymphocytes Absolute Auto 2.5 10^3/uL (1.2-3.8); Mean Corpuscular Volume 90.9 fL (81.0-99.0); Mean Platelet Volume 9.9 fL (9.5-13.5); Monocytes Absolute Auto 0.4 10^3/uL (0.3-0.8); Monocytes Percent Auto 5.5 % (1.7-12.0); Neutrophils Absolute Auto 3.8 10^3/uL (1.4-6.5); Neutrophils Percent Auto 55.7 % (43.0-75.0); Platelet Count 361 10^3/uL (150-450); Red Blood Count 4.84 10^6/uL (4.20-5.40); Red Cell Distribution Width 12.5 % (11.0-15.0); White Blood Count 6.9 10^3/uL (4.0-11.0)
[2024-04-30 15:23] LABS: Alanine Aminotransferase 28 U/L (14-59); Albumin Globulin Ratio 0.9; Albumin Level 3.6 g/dL (3.4-5.0); Alkaline Phosphatase 70 U/L (46-116); Anion Gap 13.1; Aspartate Amino Transferase 17 U/L (15-37); BUN Creatinine Ratio 15.7; Bilirubin Total 0.3 mg/dL (0.2-1.0); Calcium 8.6 mg/dL (8.5-10.1); Carbon Dioxide 26.5 mmol/L (21.0-32.0); Chloride 104 mmol/L (98-107); Chol HDL Ratio 3.8; Cholesterol 227 mg/dL (<=200); Estimated GFR (African America >60 (>=60 mL/min/1.73m^2); Estimated GFR (Non-African Ame >60 (>=60 mL/min/1.73m^2); Globulin 3.8 g/dL; Glucose 86 mg/dL (74-106); HDL Cholesterol 59 mg/dL (40-60); Potassium 3.6 mmol/L (3.5-5.1); Sodium 140 mmol/L (136-145); Total Protein 7.4 g/dL (6.4-8.2); Triglycerides 165 mg/dL (<=150)
== END 2024-04-30 14:14 | disposition home or self-care (01) ==
LOC: LAB 14:15
PROVIDERS: Family Provider Physician Assistant; PCP Nurse Practitioner Family; Visit Provider Nurse Practitioner Family
DX: Z00.00 Encounter for general adult medical examination without abnormal findings (principal)
CPT/HCPCS: 36415; 80053; 80061; 85025

== ENCOUNTER 2024-05-07 12:38 | Outpatient (OUT) | payer OTHER, SELFPAY ==
--- NOTE | 2024-05-07 12:41 | XR_ITS ---
The [address] [address] Patient Name: DEBORAH ESPINOZA MRN: [id number] date: 1985 Sex: F Assigned Patient Location: [facility] Current Patient Location: Accession/Order Number: [id number] Exam Date: 05/07/2024 12:56 Report Date: 05/09/2024 11:30 At the request of: ZAHRA HUFF Procedure: XR foot RT min 3V PROCEDURE: XR ankle RT min 3V, XR foot RT min 3V COMPARISON: 04/21/2024 HISTORY: Right Ankle Pain FINDINGS: BONES:No acute fracture or dislocation. No significant degenerative changes. There are focal areas of sclerosis in the talus, anterior and posterior calcaneus, I favor a benign bone islands/enostosis SOFT TISSUES:Negative. No visible soft tissue swelling. EFFUSION:None visible. OTHER: Negative. XR/XR foot RT min 3V IMPRESSION: No acute abnormality. Electronically authenticated by: TEODORO WHITLEY Date: 05/09/2024 11:30
--- NOTE | 2024-05-07 12:41 | XR_ITS ---
The [address] [address] Patient Name: DEBORAH ESPINOZA MRN: [id number] date: 1985 Sex: F Assigned Patient Location: [facility] Current Patient Location: Accession/Order Number: [id number] Exam Date: 05/07/2024 12:56 Report Date: 05/09/2024 11:30 At the request of: ZAHRA HUFF Procedure: XR ankle RT min 3V PROCEDURE: XR ankle RT min 3V, XR foot RT min 3V COMPARISON: 04/21/2024 HISTORY: Right Ankle Pain FINDINGS: BONES:No acute fracture or dislocation. No significant degenerative changes. There are focal areas of sclerosis in the talus, anterior and posterior calcaneus, I favor a benign bone islands/enostosis SOFT TISSUES:Negative. No visible soft tissue swelling. EFFUSION:None visible. OTHER: Negative. XR/XR ankle RT min 3V IMPRESSION: No acute abnormality. Electronically authenticated by: TEODORO WHITLEY Date: 05/09/2024 11:30
--- OUTSIDE RECORDS SUMMARY | 2024-05-07 12:55 | XMS_ITS | CCD ---
Author Organization [facility] CliniSypr Care Team Providers Care Information Assistant Name Role Phone KOLBY KIRK Admitting [...] Attending Unavailable ANJELICA MARTINS Primary Care Physician [phone] PENELOPE GARCIA Attending Unavailab PENELOPE Martinez Admitting Unavailab sejal Lipscomb MD, Katie Spivey Attending Unavailable Ruel BENAVIDEZ, Katie Spivey Attending Unavailable Ruel BENAVIDEZ, Katie Spivey Attending Unavailable Allergies Allergy Classification Reported Allergen(s) Allergy Type Date of Onset Reaction(s) Facility (1 source) cefdinir Drug Allergy 5 [facility] (6 sources) Penicillins Drug allergy (disorder) 3 Hives [facility] (6 sources) predniSONE Drug Allergy 2 Heartburn [facility] (1 source) traMADol Drug Allergy 3 [facility] (1 source) Pertussis Immune Globulin Drug allergy (disorder) 3 [facility] (7 sources) spinach allergenic extract; Translations: [Spinach (substance)] Drug Allergy 4 Airway constriction (finding) [facility] (5 sources) bee venom protein (honey bee) Allergy to substance 4 Anaphylaxis [facility] (5 sources) diphtheria,pert ussis (acellular),te Allergy to substance 4 Unknown Reaction [facility] (2 sources) Bee/Wasp/Ant venom; Translations: [Bee Stings] Drug allergy [facility] (2 sources) Penicillin; Translations: [penicillin] Drug Allergy [facility] (2 sources) Pertussis Vaccine; Translations: [Whooping-cough vaccine] Drug Allergy Airway constriction (finding) [facility] (2 sources) Sodium Bicarbonate; Translations: [Baking soda] Drug Allergy Red color (finding) [facility] Medications Current Medications Medication Drug Class(es) Dates Sig (Normalized) Sig (Original) Acetaminophen / HYDROcodone (1 source) Opioid Agonist Start: 06-13-2011 Vicodin 500 mg-5 mg Tab 1 tab(s), Oral, q4hr as needed for pain, 10 tab(s), Refill(s) 0, Take one tab by mouth every four hours as needed for pain Start Date: 06/13/11 Status: Ordered Albuterol (11 sources) beta2-Adrenergic Agonist Start: 01-30-2024 take 1 puff(s) by inhalation every six hours Albuterol Sulfate Active 2 PUFF INHALATION Every 6 hours 6.7 January 30, 2024 4:08pm Start: 06-20-2023 take 2.5 mg by inhal ation every four to six hours as needed for wheezing Albuterol Sulfate 2.5 mg /3 mL (0.083 %) solution for nebulization Active 2.5 MG INHALATION EVERY 4-6 HOURS as needed for shortness of breath or wheezing June 19, 2023 11:00pm Start: 06-20-2023 End: 01-30-2024 take 1 puff(s) by inhalation every six hours as needed Albuterol Sulfate 90 mcg/actuation HFA aerosol inhaler Discontinued 2 PUFF INHALATION Every 6 hours as needed June 19, 2023 11:00pm January 30, 2024 3:08pm Albuterol Sulfate 90 mcg/actuation HFA aerosol inhaler (1 source) Start: 01-30-2024 take 1 puff(s) by inhalation every six hours as needed for wheezing Albuterol Sulfate 90 mcg/actuation HFA aerosol inhaler Active 2 PUFF INHALATION Every 6 hours as needed for shortness of breath or wheezing 6.7 January 30, 2024 3:08pm ARIPiprazole 2 mg oral tablet (7 sources) Atypical Antipsychotic Start: 06-20-2023 End: 02-01-2024 take 1 tablet by mouth once daily Aripiprazole 2 mg tablet Active 2 MG PO Daily February 01, 2024 8:44am [id number] 0.3 ml EPINEPHrine 1 mg/ml auto-injector (5 sources) alpha-Adrenergic Agonist, beta-Adrenergic Agonist, Catecholamine Start: 06-20-2023 Epinephrine 0.3 mg/0.3 mL auto-injector Active 0.3 ML SUBCUT Once as needed June 19, 2023 11:00pm famotidine 20 mg oral tablet (4 sources) Histamine-2 Receptor Antagonist Start: 02-01-2024 End: 02-01-2024 take 1 tablet by mouth once daily Famotidine 20 mg tablet Active 20 MG PO Daily February 01, 2024 8:45am fluticasone / salmeterol (1 source) Corticosteroid, beta2-Adrenergic Agonist Start: 12-07-2009 take 1 puff(s) by inhalation once daily Advair 250 mcg-50 mcg Powder 1 puff(s), Inhalation, Daily, Refill(s) 0 Start Date: 12/07/09 Status: Ordered ibuprofen 800 mg oral tablet (8 sources) Nonsteroidal Anti-inflammatory Drug Start: 12-25-2023 End: 03-24-2024 take 1 tablet by mouth every eight hours as needed for pain Ibuprofen 800 mg tablet Active 800 MG PO Every 8 hours as needed for pain March 24, 2024 8:11am Start: 06-20-2023 End: 12-25-2023 take 1 tablet by mouth every six hours as needed Ibuprofen 800 mg tablet Discontinued 800 MG PO Every 6 hours as needed June 19, 2023 11:00pm December 25, 2023 10:24am Singulair (1 source) Leukotriene Receptor Antagonist Start: [...] Class(es) Dates Sig (Normalized) Sig (Original) ciclopirox 10 mg/ml medicated shampoo (10 sources) Start: 06-20-2023 End: 02-01-2024 Ciclopirox 1 % shampoo Discontinued TOPICAL June 19, 2023 11:00pm February 01, 2024 8:32am Start: 06-20-2023 End: 02-01-2024 Ciclopirox 0.77 % cream Disc ontinued 1 APPLIC TOPICAL Daily June 19, 2023 11:00pm February 01, 2024 8:32am Start: 06-20-2023 End: 02-01-2024 Ciclopirox Discontinued TOPI EBONY June 20, 2023 12:00am February 01, 2024 9:32am Diclofenac (5 sources) Nonsteroidal Anti-inflammatory Drug Start: 06-20-2023 End: 02-01-2024 Diclofenac Sodium 1 % gel Discontinued TOPICAL June 19, 2023 11:00pm February 01, 2024 8:32am Start: 06-20-2023 End: 02-01-2024 Diclofenac Sodium Discontinu ed TOPICAL June 20, 2023 12:00am February 01, 2024 9:32am Start: 06-20-2023 Diclofenac Sod ium Active TOPICAL June 20, 2023 12:00am doxycycline monohydrate 100 mg oral tablet (5 sources) Tetracycline-class Drug Start: 06-20-2023 End: 02-01-2024 take 1 tablet by mouth twice daily Doxycycline Monohydrate 100 mg tablet Discontinued 100 MG PO Twice daily 19 01June 19, 2023 11:00pm February 01, 2024 8:32am methylPREDNISolone 4 mg oral tablet (3 sources) Corticosteroid Start: 09-27-2023 End: 02-01-2024 take 1 tablet by mouth once Methylprednisolone (Medrol (Dominick)) 4 mg tablets,dose pack Discontinued 0 PO per package directions 20 09September 26, 2023 11:00pm February 01, 2024 8:33am PO PER PKG DIR mupirocin 0.02 mg/mg topical ointment (5 sources) RNA Synthetase Inhibitor Antibacterial Start: 06-20-2023 End: 02-01-2024 Mupirocin 2 % ointment Discontinued 1 APPLIC TOPICAL Twice daily 21 10June 19, 2023 11:00pm February 01, 2024 8:33am Problems Active Problems Problem Classification Problem Date Documented Date Episodic/Chronic Anxiety disorders (9 sources) Anxiety; Translations: [Anxiety disorder, unspecified] 06-20-2023 Chronic Asthma (10 sources) Unspecified asthma, uncomplicated; Translations: [Asthma] Onset: 01-02-2022 06-20-2023 Chronic Cardiac and circulatory congenital anomalies (6 sources) Congenital heart disease; 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, unspecified] 08-06-2023 Chronic Cardiac dysrhythmias (9 sources) Irregular heart beat; Translations: [Cardiac arrhythmia, unspecified] 06-20-2023 Chronic Comment on above: has pin hole in hear t Conduction disorders (1 source) Conduction disorder of the heart 06-13-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 Deficiency and other anemia (1 source) Anemia 06-13-2013 Episodic E Codes: Struck by; against (1 source) Striking against or struck by other objects, initial encounter; Translations: [STRIKING AGNST/STRUCK OTH OBJ INIT] Onset: 01-02-2022 Episodic Early or threatened labor (1 source) Premature labor 06-13-2013 Episodic Esophageal disorders (4 sources) Gastroesophageal reflux disease; Translations: [Gastro-esophageal reflux disease without esophagitis] 02-01-2024 Chronic Genitourinary congenital anomalies (2 sources) Congenital anomaly of the kidney; 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, unspecified] 04-29-2024 Chronic Heart valve disorders (1 source) Heart murmur 06-13-2013 Episodic Miscellaneous mental health disorders (6 sources) Psychogenic headache; 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] 08-07-2023 Chronic Mood disorders (9 sources) Depressive disorder; Translations: [Depression] 06-20-2023 Chronic Osteoarthritis (7 sources) Unspecified osteoarthritis, unspecified site; Translations: [Arthritis] Onset: 01-02-2022 06-20-2023 Chronic Comment on above: Right wrist/arm Other acquired deformities (5 sources) Scoliosis, unspecified; Translations: [Scoliosis [and kyphoscoliosis], idiopathic] Onset: 04-11-2021 06-20-2023 Chronic Other acquired deformities (5 sources) Scoliosis deformity of spine; Translations: [Scoliosis, unspecified] 06-20-2023 Chronic Other acquired deformities (3 sources) Deformity of lower limb; Translations: [Unspecified acquired deformity of right thigh] 08-07-2023 Episodic Other acquired deformities (3 sources) Unspecified acquired deformity of right thigh; Translations: [Other acquired deformity of other parts of limb] 08-06-2023 Episodic Other bone disease and musculoskeletal deformities (1 source) 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 Other congenital anomalies (1 source) 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 Other connective tissue disease (5 sources) Triggering of digit; Translations: [Trigger finger, unspecified finger] 06-20-2023 Episodic Other connective tissue disease (3 sources) Trigger finger, unspecified finger; Translations: [Trigger finger (acquired)] 06-20-2023 Episodic Other nervous system disorders (6 sources) Carpal tunnel syndrome; Translations: [Carpal tunnel syndrome, unspecified upper limb] 06-20-2023 Chronic Other non-traumatic joint disorders (3 sources) Pain in right ankle and joints of right foot; Translations: [PAIN IN RIGHT ANKLE] Onset: 12-31-2021 Episodic Other screening for suspected conditions (not mental disorders or infectious disease) (2 sources) Patient encounter status; Translations: [Encounter for screening for osteoporosis] 04-29-2024 Episodic Other skin disorders (3 sources) Eruption; Translations: [Rash and other nonspecific skin eruption] 09-27-2023 Episodic Other skin disorders (1 source) Rash and other nonspecific skin eruption; Translations: [Rash and other nonspecific skin eruption] 09-27-2023 Episodic Other upper respiratory infections (7 sources) Maxillary sinusitis; Translations: [Chronic maxillary sinusitis] 06-20-2023 Chronic Residual codes; unclassified (1 source) Family history of osteoporosis; Translations: [Family history of osteoporosis] 04-29-2024 Episodic Residual codes; unclassified (1 source) Family history of osteoporosis; Translations: [Family history of osteoporosis] 04-29-2024 Episodic Residual codes; unclassified (1 source) Acquired absence of both cervix and uterus; Translations: [Acquired absence of both cervix and uterus] 04-29-2024 Episodic Spondylosis; intervertebral disc disorders; other back problems (4 sources) Chronic low back pain; Translations: [Chronic low back pain] 02-01-2024 Episodic Sprains and strains (2 sources) Sprain of right ankle; Translations: [Sprain of unspecified ligament of right ankle, initial encounter] 04-29-2024 Episodic Substance-related disorders (1 source) Nicotine dependence, [...] in mGy = na DAP = na [facility] Consent for Treatmenton 07-31 Consent for Treatment [id number] 0TIFF Normal [facility] Physician Orderon 08-14-2023 Physician Order [id number] 00TIFF Normal [facility] XR ANKLE RT MIN 3 VIEWSon [...] by: Santy RO Date: 2021-12-31 22:43 Normal [facility] CT NECK ST W CONon CT NECK [...] by: LIZANDRO DELACRUZ Date: 2021-09-13 17:01 Normal [facility] XR HIP LT 2 3V W PELVISon [...] by: SANNA HOOD Date: 2021-04-18 11:23 Normal [facility] Vital Signs Date Time Vital Sign Value Performing Clinician Faci lity 04-29-2024 12:59-0500 Body height 165.1 cm [facility] 04-29-2024 12:59-0500 Body temperature 98.4 [degF] [facility] 04-29-2024 12:59-0500 Diastolic blood pressure 72 mm[Hg] [facility] 04-29-2024 12:59-0500 Heart rate 80 /min [facility] 04-29-2024 12:59-0500 SaO2% (BldA) [Mass fraction] 99 % [facility] 04-29-2024 12:59-0500 Systolic blood pressure 116 mm[Hg] [facility] 02-01-2024 09:28-0400 Body height 165.1 cm [facility] 02-01-2024 09:28-0400 Body mass index (BMI) [Ratio] 30.9 kg/m2 [facility] 02-01-2024 09:28-0400 Body temperature 96.8 [degF] [facility] 02-01-2024 09:280400 Body weight 84.48 kg [facility] 02-01-2024 09:28-0400 Diastolic blood pressure 76 mm[Hg] [facility] 02-01-2024 09:28-0400 Heart rate 70 /min [facility] 02-01-2024 09:28-0400 SaO2% (BldA) [Mass fraction] 98 % [facility] 02-01-2024 09:28-0400 Systolic blood pressure 124 mm[Hg] [facility] 09-27-2023 13:58-0400 Body height 165.1 cm [facility] 09-27-2023 13:58-0400 Body mass index (BMI) [Ratio] 30.4 kg/m2 [facility] 09-27-2023 13:58-0400 Body weight 83.06 kg [facility] 09-27-2023 13:58-0400 Diastolic blood pressure 76 mm[Hg] [facility] 09-27-2023 13:58-0400 Heart rate 70 /min [facility] 09-27-2023 13:58-0400 Respiratory rate 12 /min [facility] 09-27-2023 13:58-0400 Systolic blood pressure 122 mm[Hg] [facility] 08-06-2023 15:26-0400 Body height 165.1 cm [facility] 08-06-2023 15:26-0400 Body mass index (BMI) [Ratio] 29.7 kg/m2 [facility] 08-06-2023 15:26-0400 Body temperature 97.5 [degF] [facility] 08-06-2023 15:26-0400 Body weight 81.19 kg [facility] 08-06-2023 15:26-0400 Diastolic blood pressure 74 mm[Hg] [facility] 08-06-2023 15:26-0400 Heart rate 71 /min [facility] 08-06-2023 15:26-0400 Respiratory rate 18 /min [facility] 08-06-2023 15:26-0400 SaO2% (BldA) [Mass fraction] 98 % [facility] 08-06-2023 15:26-0400 Systolic blood pressure 110 mm[Hg] [facility] 06-20-2023 14:49-0400 Body height 165.1 cm [facility] 06-20-2023 14:49-0400 Body mass index (BMI) [Ratio] 29.7 kg/m2 [facility] 06-20-2023 14:49-0400 Body weight 81.19 kg [facility] 06-20-2023 14:49-0400 Diastolic blood pressure 80 mm[Hg] [facility] 06-20-2023 14:49-0400 Heart rate 78 /min [facility] 06-20-2023 14:49-0400 SaO2% (BldA) [Mass fraction] 98 % [facility] 06-20-2023 14:49-0400 Systolic blood pressure 116 mm[Hg] [facility] Encounters Encounter Date Encounter Type Care Provider Facility Start: 04-29-2024 Patient encounter status [facility] Start: 04-29-2024 End: 04-29-2024 ambulatory [facility] Work Phone: Start: 04-29-2024 End: 04-29-2024 Encounter for general adult medical examination without abnormal findings [facility] Start: 04-29-2024 End: 04-29-2024 Patient encounter procedure [facility] Physician [facility] Work Phone: Start: 04-28-2024 End: 04-28-2024 ambulatory Katie Lipscomb MD Facility: [facility] Start: 04-22-2024 Non-patient / Non-visit [facility] Phys[facility] Work Phone: Start: 03-10-2024 End: 03-10-2024 ambulatory Katie Lipscomb MD Facility:[facility] Start: 02-11-2024 End: 02-11-2024 ambulatory Katie Lipscomb MD Facility:[facility] Start: 02-01-2024 End: 02-01-2024 ambulatory [facility] Work Phone: Start: 02-01-2024 End: 02-01-2024 Patient encounter procedure [facility] Work Phone: Start: 09-27-2023 End: 09-27-2023 ambulatory [facility] Work Phone: Start: 09-27-2023 End: 09-27-2023 Patient encounter procedure [facility] Work Phone: Start: 08-14-2023 End: 08-15-2023 ambulatory PENELOPE GARCIA Facility:[facility] Start: 08-14-2023 End: 08-14-2023 Patient encounter procedure PENELOPE GARCIA [facility] Start: 08-06-2023 End: 08-06-2023 ambulatory [facility] Work Phone: Start: 08-06-2023 End: 08-06-2023 Patient encounter procedure [facility] Work Phone: Start: 06-20-2023 End: 06-20-2023 ambulatory [facility] Work Phone: Start: 06-20-2023 End: 06-20-2023 Patient encounter procedure [facility] Work Phone: Start: 06-06-2023 End: 06-06-2023 ambulatory CASH M HEMMER Not Available Start: 05-23-2023 End: 05-23-2023 ambulatory CASH M HEMMER Not Available Start: 04-16-2023 End: 04-17-2023 ambulatory SHONDA PORTER Not Available Start: 04-13-2023 End: 04-13-2023 ambulatory SHANEL STARK Not Available Start: 04-11-2023 End: 04-11-2023 ambulatory VERNELLLINN JEAN-BAPTISTEY Not Available Start: 04-06-2023 End: 04-07-2023 ambulatory VERNELL ESTIVENY Not Available Start: 04-04-2023 End: 04-04-2023 ambulatory TASHI BANKS Not Available Start: 03-30-2023 End: 03-30-2023 ambulatory PIETER SMITH Not Available Start: 03-23-2023 End: 03-23-2023 ambulatory PIETER Fernandez LUIS Not Available Start: 03-16-2023 End: 03-16-2023 ambulatory PIETER Fernandez LUIS Not Available Start: 03-07-2023 End: 03-07-2023 ambulatory CASH DANIEL Not Available Start: 01-09-2022 End: 01-10-[address] CASH DANIEL Facility:[facility] Start: 12-31-2021 End: 01-01-2022 ambulatory KOLBY KIRK Facility:[facility] Start: 09-13-2021 End: 09-14-[address] J CARLOS AGUILAR Facility:[facility] Start: 04-18-2021 End: 04-19-[address] CASH DANIEL Facility:[facility] Start: 04-07-2021 End: 04-07-[address] DOCTOR CASTILLO Facility:[facility] Procedures Date Procedure Procedure Detail Performing Clinician H/O: hysterectomy History of hysterectomy History of decompres fly of median nerve History of carpal tunnel surgery of right wrist Ligation of fallopian tube J DONNA GARCIA right forearm PENELOPE DORAN Plan of Treatment Date Care Activity Detail Author Start: 04-29-2024 Patient referral [facility] Work Phone: Start: 02-01-2024 Patient referral [facility] Work Phone: Start: 06-20-2023 Patient referral [facility] Work Phone: Comprehensive metabo lic 2000 panel - Serum or Plasma [facility] DXA Skeletal system. axial Views for bone density [facility] Patient Education Low back pain in adults [facility] Work Phone: Patient referral [facility] Work Phone: US Heart Transthoracic [facility] US Kidney - bilateral [facility] Payers Date Payer Category Payer Unknown 2017 Medicaid [id number] 1985 Unknown [id number] 2.16.84 [id number] 1986 Unknown [id number] 2.16.84 0.1.742530.3.579.2.593 1986 Unknown [id number] 2.16.84 0.1.023521.3.579.2.593 1986 Unknown [id number] 2.16.84 0.1.063826.3.579.2.593 1986 Unknown [id number] 2.16.84 0.1.668804.3.579.2.593 1986 Unknown [id number] 2.16.84 0.1.801863.3.579.2.1259 1986 Unknown [id number] 2.16.84 0.1.548778.3.579.2.1259 1986 Unknown [id number] 2.16.84 0.1.587905.3.579.2.1259 1986 Unknown [id number] 2.16.84 0.1.207455.3.579.2.1259 1986 Unknown [id number] 2.16.84 0.1.596879.3.579.2.1259 1986 Unknown [id number] 2.16.84 0.1.633913.3.579.2.1259 1986 Unknown [id number] 2.16.840 .1.851642.3.579.2.1259 1986 Unknown [id number] 2.16.840 .1.525649.3.579.2.1259 1986 Unknown [id number] 2.16.840 .1.416707.3.579.2.1259 1986 Unknown [id number] 2.16.840 .1.643931.3.579.2.1259 1986 Unknown [id number] 2.16.840 .1.558492.3.579.2.1259 1986 Unknown [id number] 2.16.8 40.1.394600.3.579.2.727 1986 Unknown [id number] 2.16. 840.1.930664.3.579.2.196 1986 Unknown [id number] 2.16. 840.1.348955.3.579.2.196 1986 Unknown [id number] 2.16. 840.1.491973.3.579.2.196 1959 Unknown [id number] Medicaid [employer] [id number] Social History Date Type Detail Facility Start: 06-20-2023 Tobacco smoking stat [facility] Never smoked tobacco (finding) [facility] Start: 1985 Sex Assigned At Female F [facility] Tobacco smoking status [facility] Start: 02-01-2024 End: 02-01-2024 Tobacco smoking status [facility] Ex-smoker (finding) [facility] Start: 04-29-2024 Sex Female (finding) [facility] Clinical Notes 04-07-2021 to 02-01-2024 Note Date & Type Note Facility 02-01-2024 Evaluation note Diagnosis Onset Date Resolution Anxiety acute February 01, 2024 9:21am Arthritis acute February 01, 2024 9:21am Chronic lower back pain acute N ov2023 9:21am Deformity of right lower extremity acute January 31 9:21am Depression acute February 01, 2024 9:21am GERD (gastroesophageal reflux disease) acute January 31 9:21am Stress headaches acute February 01, 2024 9:21am Family history of osteoporosis acute April 29 12:56pm History of hysterectomy acute J anuary 2024 12:56pm Kidney anomaly, congenital acute April 29 12:56pm Screening for osteoporosis acute April 29 12:56pm Sprain of right ankle acute Dawit uary 2024 12:56pm Wellness examination acute Herminio guzman 2024 12:56pm [facility] Work Phone: 1(132) 997-908403-20-2024 Hospital Discharge instructionsAmbulatory Orders* Referral to Orthopedic Surgery Time Frame: 06/20/23, Location: None Selected [facility] Work Phone: 1(741) 387-235910-10-2022 NotePROCEDURE: XR ANKLE RT MIN 3 VIEWS HISTORY: Contusion of right ankle ; acute anterior right ankle pain since injury 16 days ago COMPARISON: XR ankle right 12/31/2021 FINDINGS: BONES:No fracture, acute abnormality, or significant arthropathy. SOFT TISSUES:No visible soft tissue swelling. EFFUSION:None visible. OTHER: Negative. IMPRESSION: 1. Normal examination. Electronically authenticated by: LIZANDRO DELACRUZ Date: 2022-01-09 16:12[id number] NotePROCEDURE: XR FEMUR LT COMPARISON: None. HISTORY: Unspecified fall FINDINGS: BONES:No fracture, acute abnormality, or significant arthropathy. SOFT TISSUES:Negative. No visible soft tissue swelling. EFFUSION:None visible. OTHER: Negative. IMPRESSION: No acute abnormality Electronically authenticated by: TEODORO WHITLEY Date: 2021-04-07 09:14[facility] No data available for this section [facility] Diagnosis Onset Date Resolution Status Anxiety acute Asthma acute Depression acute Irregular heart beat acute Maxillary sinusitis acute Scoliosis acute Trigger finger of right hand acute [facility] Work Phone: Evaluation note* Diagnosis Onset Date Resolution Status Anxiety acute Asthma acute Depression acute Irregular heart beat acute Maxillary sinusitis acute Scoliosis acute Trigger finger of right hand acute Congenital heart defect acut e Irregular heart beat acute Scoliosis acute [facility] Work Phone: Evaluation note* Diagnosis Onset Date Resolution Status Congenital heart defect acut e Deformity of right lower extremity acute Irregular heart beat acute Scoliosis acute Stress headaches acute Trigger finger of right hand acute Rash acute [facility] Work Phone: Evaluation note* Diagnosis Onset Date Resolution Status Anxiety acute Chronic lower back pain acut e Deformity of right lower extremity acute Depression acute GERD (gastroesophageal reflux disease) acute Stress headaches acute [facility] Work Phone: Hospital Discharge instructions No data available for this section [facility] instructionsAmbulatory Orders* Referral to Pain Management Time Frame: 02/01/24, Location: None [facility] Work Phone: Hospital Discharge instructionsAmbulatory Orders* Referral to Podiatry Time Frame: 04/29/24, [facility] [facility] Work Phone: Progress note No data available for this section [facility] Summary Purpose Family History No [...] Time Advance Directives No June 07 10:38am Advance Directive Response Recorded Date/ Time Advance Directives No June 07 9:38am Chief Complaint and Reason for Visit Chief [...] Depression GERD (gastroesophageal reflux disease) Stress headaches Chief Complaint Admit Date Acid Reflux/Back Pain February 01, 2024 9:21am Amb Documentation April 22, 2024 9 :34am ER f/u right foot injury April 29, 2 025 12:56pm Reason for Visit Admit Date Anxiety February 01, 2024 9 :21am Arthritis February 01, 2024 9 :21am Chronic lower back pain January 31 9:21am Deformity of right lower extremity Novem 2023 9:21am Depression February 01, 2024 9 :21am GERD (gastroesophageal reflux disease) N ov2023 9:21am Stress headaches February 01, 2024 9 :21am Family history of osteoporosis April 032024 12:56pm History of hysterectomy April 29 12:56pm Kidney anomaly, congenital April 29, 2024 12:56pm Screening for osteoporosis April 29, 2024 12:56pm Sprain of right ankle April 29, 2024 12:56pm Wellness examination April 29, 2024 12:56pm Additional Source Comments INFORMATION SOURCE (unrecogn ized section and content) DATE CREATED AUTHOR 01/10/2022 [facility] DATE CREATED AUTHOR AUTHOR'S ORGANIZ ATION 06/07/2023 [facility] EPIC DATE CREATED AUTHOR AUTHOR'S ORGANIZ ATION 08/16/2023 [facility] DATE CREATED AUTHOR AUTHOR'S ORGANIZ ATION 05/04/2024 [facility] Care Teams (unrecognized sec tion and content) Team Status: Active Member Role Status Dates Penelope Garcia APRN CONTRACT ADMINISTRATION MANAGER-C Primary Care Provider Active Team Status: Inactive Member Role Status Dates Penelope Garcia APRN CONTRACT ADMINISTRATION MANAGER-C Primary Care Provider, Attending Provider Active Start: June 20, 2023 End: June 20, 2023 Team Status: Inactive Member Role Status Dates Penelope Garcia APRN CONTRACT ADMINISTRATION MANAGER-C Primary Care Provider, Attending Provider Active Start: August 06, 2023 End: August 06, 2023 Team Status: Inactive Member Role Status Dates Penelope Garcia APRN CONTRACT ADMINISTRATION MANAGER-C Primary Care Provider, Attending Provider Active Start: September 27, 2023 End: September 27, 2023 Team Status: Inactive Member Role Status Dates Penelope Garcia APRN CONTRACT ADMINISTRATION MANAGER-C Primary Care Provider, Attending Provider Active Start: February 01, 2024 End: February 01, 2024 Team Status: Active Member Role Status Dates ePnelope Garcia APRN CONTRACT ADMINISTRATION MANAGER-C Primary Care Provider Active Start: April Khadijah Corbin CMA Attending Provider Active Start: April 22, 2024 Team Status: Inactive Member Role Status Dates Penelope Garcia APRN CONTRACT ADMINISTRATION MANAGER-C Primary Care Provider, Attending Provider Active Start: April 29, 2024 End: April 29, 2024 Goals (unrecognized section and content) Goals [...] BE BASED ON THE PRIMARY CLINICAL RECORDS. [facility] [employer] provides no warranty or guarantee of the accuracy or completeness of information in this document.
== END 2024-05-07 12:39 | disposition home or self-care (01) ==
LOC: RAD 12:38
PROVIDERS: Family Provider Physician Assistant; PCP Nurse Practitioner Family; Visit Provider Podiatrist Foot & Ankle Surgery
DX: M25.571 Pain in right ankle and joints of right foot (principal)
CPT/HCPCS: 73610; 73630

== ENCOUNTER 2024-05-07 13:59 | Outpatient (OUT) | payer OTHER, SELFPAY ==
--- NOTE | 2024-05-07 14:18 | P.CN_ITS ---
Consult Note: HPI Data of Consult Patient: known to practice within the last 3 years Requesting Physician: Anna Stroud NP Primary Care Provider: KARIN MALONE Family Provider: CASH DANIEL Consult Narrative Reason for consult: f/u Narrative: Yanci Loco a 38 year old female presents for evaluation and management of chronic neck pain. pt has failed heat, ice, tylenol, NSAIDs, and 6 weeks of PT/HEP. Recent cervical MRI shows spondylosis as well as stenosis. Patient underwent bilateral C5/6 TFESI with >90% improvement per pt. Neck and BUE pain today 4/10 increasing to 4/10. Pain in low back and BLE 4/10 increasing to 8/10 with standing, walking, lifting, pushing, pulling, bending, and sleep. denies falls/injury. previous lumbar MRI shows bulging disc at L4-5 and L5-S1 cc:: CC: Anna Stroud NP Review of Systems ROS Status of ROS 10 or more systems reviewed and unremark able except as noted in history and below Musculoskeletal Reports: back pain, neck pain and extremity pain PFSH PFSH Medical History Osteoarthritis ?M19.90 - Unspecified osteoarthritis, unspecified site (ICD-10) Carpal tunnel syndrome ?G56.00 - Carpal tunnel syndrome, unspecified upper limb (ICD-10) Acid reflux ?K21.9 - Gastro-esophageal reflux disease without esophagitis (ICD-10) Asthma ?J45.909 - Unspecified asthma, uncomplicated (ICD-10) Heart murmur ?R01.1 - Cardiac murmur, unspecified (ICD-10) Irregular heartbeat ?I49.9 - Cardiac arrhythmia, unspecified (ICD-10) Surgical History History of carpal tunnel release ?Z98.890 - Other specified postprocedural states (ICD-10) History of hysterectomy ?Z90.710 - Acquired absence of both cervix and uterus (ICD-10) History of tubal ligation ?Z98.51 - Tubal ligation status (ICD-10) History of surgery on arm ?Z98.890 - Other specified postprocedural states (ICD-10) Social History Smoking status: Former smoker Little interest or pleasure in doing things: not at all Feeling down, depressed, or hopeless: not at all Meds Home Medications and Allergies Home Medications ?Medication ?Instructions ?Recorded ?Confirmed ?Type albuterol sulfate 90 mcg/actuation 2 puff inhalation Q6H PRN wheezing 11/15/22 04/28/24 History aerosol inhaler ciclopirox 0.77 % topical cream 1 applic topical Q12H 11/15/22 04/28/24 History diclofenac sodium 1 % topical gel 2 g topical QID 11/15/22 02/11/24 History ciclopirox 1 % shampoo 5 ml topical QWEEK 04/16/23 04/28/24 History epinephrine 0.3 mg/0.3 mL 0.3 mg (0.3 mL) IM ONCE PRN 10/01/23 04/28/24 Rx injection, auto-injector allergic reaction #2 ea famotidine 20 mg tablet (Pepcid) 20 mg PO BID #10 tabs 10/01/23 04/28/24 Rx tizanidine 4 mg capsule (Zanaflex) 2 mg (1/2 x 4 mg) PO Q8H PRN 12/24/23 04/28/24 Rx muscle spasticity #10 caps aripiprazole 2 mg tablet 2 mg PO DAILY 02/11/24 04/28/24 History naproxen 250 mg tablet 250 mg PO Q12H PRN pain #14 tabs 04/21/24 04/28/24 Rx Allergies Allergy/AdvReac Type Severity Reaction Status Date / Time Penicillins Allergy Severe Rash Verified 04/28/24 07:40 tramadol Allergy Severe Swelling Verified 04/28/24 07:40 of Lip/Tongue/Throat whooping cough vaccine Allergy Mild hives Uncoded 04/28/24 07:40 bees AdvReac Mild sob Uncoded 04/28/24 07:40 Exam Constitutional Documenting provider has reviewed patient's vital signs: yes Common normals: no apparent distress, oriented x3, healthy appearing, alert and well nourished General appearance: cooperative HENWV Common normals: normocephalic, hearing grossly normal bilaterally and moist oral mucous membranes Head and scalp: normocephalic Eye Common normals: PERRL Pupil: PERRL Neck & C-Spine Common normals: full ROM General: normal visual inspection Cervical spine: no pain with cervical ROM and no cervical spine tenderness Other: negative spurlings strength 5/5 in BUE Chest Common normals: inspection of chest normal Respiratory Common normals: normal respiratory effort, no retractions and no use of accessory muscles Back & Pelvis Lumbar spine/lower back: ROM limited, pain with ROM, lumbar spinal tenderness, paraspinal muscle tenderness, straight leg raise positive right and straight leg raise positive left Other: strength 4/5 in BLE decreased sensation to bilateral L4,5,S1 Neuro Common normals: oriented x3, CN's II-XII intact bilaterally, moves all extrem ities, no focal motor deficits, no sensory deficits noted and deep tendon reflexes 2+ bilaterally Sensorium/orientation: alert Motor exam: no movement abnormalities noted Psych Common normals: mental status grossly normal, thought process normal, cooperative, affect normal, speech normal and activity/motor behavior normal Speech: normal speech Thought process: normal thought process Results Additional Findings Additional findings: If on a controlled substance or opioids, I have checked an [place] report on this patient and there are no aberrancies noted in the prescribing history.??If on a controlled substance or opioid a drug screen was completed and reviewed within the last year, and if there has not been a drug screen completed we ordered one today to monitor higher risk, state monitored pain medication use. As part of providing excellent, safe, comprehensive care, the following was completed at our patient's visit: 1. A medication reconciliation and review to ensure accurate knowledge of current/active medications, including asking our patients to inform us about any [id number] medications or herbal remedies/nutritional supplements/alterna tive remedies. 2. A review to specifically ensure our patients have had annual screening for screening for depression, screening for tobacco use, and screening for unhealthy alcohol use. For concerning screenings had a discussion with the patient, provided patient education, and recommended follow-up with primary care provider when appropriate. If patient noted with a risk of falling, they received education on strength, gait, and balance training to prevent future risk of falling. Portions of this note may have been carried over from the previous visit and updated as appropriate. Please note this office utilizes paper charting in addition to the electronic medical record. A list of current medications, vitals, and PMH is available there as the clinical staff outside of myself do not have access to [employer] charting during the clinic day operations. As part of providing quality comprehensive care the current medications, vitals, and PMH were reviewed in the paper chart. Assessment and Plan Assessment and Plan (1) Cervical radiculopathy: Assessment and Plan: >50% improvement from bilateral C5-6 TFESI (2) Cervical spondylosis: (3) Lumbar radiculopathy: Assessment and Plan: DINESH 42% (4) Bulging lumbar disc: Plan continues to have moderate to severe low back pain and lumbar radiculopathy greater than 6 months, has been engaged in provider guided HEP with increased pain and cannot tolerate. pt has failed tylenol, motrin, flexeril, tizanidine, heat and ice. would recommend pt undergo bilateral L4-5 TFESI for lumbar radiculopathy and bulging lumbar discs. no medication changes. f/u 2 weeks after injection
== END 2024-05-07 14:00 | disposition home or self-care (01) ==
LOC: PM 13:59
PROVIDERS: Family Provider Physician Assistant; PCP Nurse Practitioner Family; Visit Provider Nurse Practitioner
DX: M54.12 Radiculopathy, cervical region (principal); M47.812 Spondylosis without myelopathy or radiculopathy, cervical region; M54.16 Radiculopathy, lumbar region; M51.369 Other intervertebral disc degeneration, lumbar region without mention of lumbar back pain or lower extremity pain; M25.571 Pain in right ankle and joints of right foot
CPT/HCPCS: 73610; 73630; G0463

== ENCOUNTER 2024-05-13 14:33 | Outpatient (RCR) | payer OTHER, SELFPAY | END 2024-06-03 08:13 | disposition home or self-care (01) | LOC: PT 14:33 | PROVIDERS: Family Provider Physician Assistant; PCP Nurse Practitioner Family; Visit Provider Podiatrist Foot & Ankle Surgery | DX: S93.491D Sprain of other ligament of right ankle, subsequent encounter (principal) | CPT/HCPCS: 97110; 97161 ==

== ENCOUNTER 2024-05-26 09:19 | Day surgery (SDC) | payer OTHER, SELFPAY ==
[2024-05-26 09:26] VITALS: BP 131/91; PULSE 72; TEMP 36.3; O2SAT 98
--- OUTSIDE RECORDS SUMMARY | 2024-05-26 09:40 | XMS_ITS | CCD ---
Author Organization [facility] Care Team Providers Care Grey Inspector Name Role Phone KOLBY KIRK Admitting [...] Unavailable Ruel BENAVIDEZ, Katie Spivey Attending Unavailable Penelope Garcia APRN Primary Care Provider Penelope Garcia APRN Attending Provider [phone] Penelope Garcia Attending Unavailable Penelope Garcia Primary Care Unavailable Penelope Garcia Admitting Unavailable Allergies Allergy Classification Reported Allergen(s) Allergy Type Date of Onset Reaction(s) Facility (1 source) cefdinir Drug Allergy 5 [facility] (7 sources) Penicillins Drug allergy (disorder) 3 Hives [facility] (7 sources) predniSONE Drug Allergy 2 Heartburn [facility] (1 source) traMADol Drug Allergy 3 [facility] (1 source) Pertussis Immune Globulin Drug allergy (disorder) 3 [facility] (9 sources) spinach allergenic extract; Translations: [Spinach (substance)] Drug Allergy 4 Airway constriction (finding) [facility] (7 sources) bee venom protein (honey bee); Translations: [bee venom protein (honey bee)] Allergy to substance 4 Anaphylaxis [facility] (7 sources) diphtheria,pert ussis (acellular),te; Translations: [diphtheria,per tussis (acellular),te] Allergy to substance 4 Unknown Reaction [facility] (2 sources) Bee/Wasp/Ant venom; Translations: [Bee Stings] Drug allergy [facility] (2 sources) Penicillin; Translations: [penicillin] Drug Allergy [facility] (2 sources) Pertussis Vaccine; Translations: [Whooping-cough vaccine] Drug Allergy Airway constriction (finding) [facility] (2 sources) Sodium Bicarbonate; Translations: [Baking soda] Drug Allergy Red color (finding) [facility] (1 source) Penicillins Drug allergy (disorder) 5 [facility] (1 source) predniSONE Drug Allergy 5 [facility] Medications Current Medications Medication Drug Class(es) Dates Sig (Normalized) Sig (Original) Acetaminophen / HYDROcodone (1 source) Opioid Agonist Start: 06-13-2011 Vicodin 500 mg-5 mg Tab 1 tab(s), Oral, q4hr as needed for pain, 10 tab(s), Refill(s) 0, Take one tab by mouth every four hours as needed for pain Start Date: 06/13/11 Status: Ordered Albuterol (13 sources) beta2-Adrenergic Agonist Start: 01-30-2024 take 1 [...] Albuterol Sulfate 90 mcg/actuation HFA aerosol inhaler (2 sources) Start: 01-30-2024 take 1 puff(s) by inhalation every six hours as needed for wheezing Albuterol Sulfate 90 mcg/actuation HFA aerosol inhaler Active 2 PUFF INHALATION Every 6 hours as needed for shortness of breath or wheezing 6.7 January 30, 2024 3:08pm ARIPiprazole 2 mg oral tablet (9 sources) Atypical Antipsychotic Start: 06-20-2023 End: 02-01-2024 take 1 tablet by mouth once daily Aripiprazole 2 mg tablet Active 2 MG PO Daily 90 February 01, 2024 8:44am [id number] 0.3 ml EPINEPHrine 1 mg/ml auto-injector (6 sources) alpha-Adrenergic Agonist, beta-Adrenergic Agonist, Catecholamine Start: 06-20-2023 Epinephrine 0.3 mg/0.3 mL auto-injector Active 0.3 ML SUBCUT Once as needed June 19, 2023 11:00pm famotidine 20 mg oral tablet (6 sources) Histamine-2 Receptor Antagonist Start: 02-01-2024 End: [...] Status: Ordered ibuprofen 800 mg oral tablet (11 sources) Nonsteroidal Anti-inflammatory Drug Start: 12-25-2023 End: [...] Sig (Original) ciclopirox 10 mg/ml medicated shampoo (12 sources) Start: 06-20-2023 End: 02-01-2024 Ciclopirox 1 % shampoo Discontinued TOPICAL June 19, 2023 11:00pm February 01, 2024 8:32am Start: 06-20-2023 End: 02-01-2024 Ciclopirox 0.77 % cream Disc ontinued 1 APPLIC TOPICAL Daily June 19, 2023 11:00pm February 01, 2024 8:32am Start: 06-20-2023 End: 02-01-2024 Ciclopirox Discontinued TOPI EBONY June 20, 2023 12:00am February 01, 2024 9:32am Diclofenac (6 sources) Nonsteroidal Anti-inflammatory Drug Start: 06-20-2023 End: 02-01-2024 Diclofenac Sodium 1 % gel Discontinued TOPICAL June 19, 2023 11:00pm February 01, 2024 8:32am Start: 06-20-2023 End: 02-01-2024 Diclofenac Sodium Discontinu ed TOPICAL June 20, 2023 12:00am February 01, 2024 9:32am Start: 06-20-2023 Diclofenac Sod ium Active TOPICAL June 20, 2023 12:00am doxycycline monohydrate 100 mg oral tablet (6 sources) Tetracycline-class Drug Start: 06-20-2023 End: 02-01-2024 take 1 tablet by mouth twice daily Doxycycline Monohydrate 100 mg tablet Discontinued 100 MG PO Twice daily 19 01June 19, 2023 11:00pm February 01, 2024 8:32am methylPREDNISolone 4 mg oral tablet (4 sources) Corticosteroid Start: 09-27-2023 End: 02-01-2024 take 1 tablet by mouth once Methylprednisolone (Medrol (Dominick)) 4 mg tablets,dose pack Discontinued 0 PO per package directions 20 09September 26, 2023 11:00pm February 01, 2024 8:33am PO PER PKG DIR mupirocin 0.02 mg/mg topical ointment (6 sources) RNA Synthetase Inhibitor Antibacterial Start: 06-20-2023 End: 02-01-2024 Mupirocin 2 % ointment Discontinued 1 APPLIC TOPICAL Twice daily 22 June 19, 2023 11:00pm February 01, 2024 8:33am Problems Active Problems Problem Classification Problem Date Documented Date Episodic/Chronic Anxiety disorders (10 sources) Anxiety; Translations: [Anxiety disorder, unspecified] 06-20-2023 Chronic Asthma (11 sources) Unspecified asthma, uncomplicated; Translations: [Asthma] Onset: 01-02-2022 06-20-2023 Chronic Cardiac and circulatory congenital anomalies (7 sources) Congenital heart disease; 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, unspecified] 08-06-2023 Chronic Cardiac dysrhythmias (10 sources) Irregular heart beat; Translations: [Cardiac arrhythmia, [...] source) Premature labor 06-13-2013 Episodic Esophageal disorders (5 sources) Gastroesophageal reflux disease; Translations: [Gastro-esophageal reflux disease without esophagitis] 02-01-2024 Chronic Genitourinary congenital anomalies (5 sources) Congenital anomaly of the kidney; 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, unspecified] Onset: 05-12-2024 04-29-2024 Chronic Heart valve disorders (1 source) Heart murmur 06-13-2013 Episodic Miscellaneous mental health disorders (7 sources) Psychogenic headache; 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] 08-07-2023 Chronic Mood disorders (10 sources) Depressive disorder; Translations: [Depression] 06-20-2023 Chronic Osteoarthritis (8 sources) Unspecified osteoarthritis, unspecified site; Translations: [Arthritis] Onset: 01-02-2022 06-20-2023 Chronic Comment on above: Right wrist/arm Other acquired deformities (5 sources) Scoliosis, unspecified; Translations: [Scoliosis [and kyphoscoliosis], idiopathic] Onset: 04-11-2021 06-20-2023 Chronic Other acquired deformities (6 sources) Scoliosis deformity of spine; Translations: [Scoliosis, unspecified] 06-20-2023 Chronic Other acquired deformities (4 sources) Deformity of lower limb; Translations: [Unspecified acquired deformity of right thigh] 08-07-2023 Episodic Other acquired deformities (3 sources) Unspecified acquired deformity of right thigh; Translations: [Other acquired deformity of other parts of limb] 08-06-2023 Episodic Other bone disease and musculoskeletal deformities (1 source) 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 Other congenital anomalies (1 source) 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 Other connective tissue disease (6 sources) Triggering of digit; Translations: [Trigger finger, unspecified finger] 06-20-2023 Episodic Other connective tissue disease (3 sources) Trigger finger, unspecified finger; Translations: [Trigger finger (acquired)] 06-20-2023 Episodic Other nervous system disorders (7 sources) Carpal tunnel syndrome; Translations: [Carpal tunnel syndrome, unspecified upper limb] 06-20-2023 Chronic Other non-traumatic joint disorders (3 sources) Pain in right ankle and joints of right foot; Translations: [PAIN IN RIGHT ANKLE] Onset: 12-31-2021 Episodic Other screening for suspected conditions (not mental disorders or infectious disease) (4 sources) Patient encounter status; Translations: [Encounter for screening for osteoporosis] 04-29-2024 Episodic Other skin disorders (4 sources) Eruption; Translations: [Rash and other nonspecific skin eruption] 09-27-2023 Episodic Other skin disorders (1 source) Rash and other nonspecific skin eruption; Translations: [Rash and other nonspecific skin eruption] 09-27-2023 Episodic Other upper respiratory infections (8 sources) Maxillary sinusitis; Translations: [Chronic maxillary sinusitis] 06-20-2023 Chronic Residual codes; unclassified (2 sources) Family history of osteoporosis; Translations: [Family history of osteoporosis] 04-29-2024 Episodic Residual codes; unclassified (2 sources) Family history of osteoporosis; Translations: [Family history of osteoporosis] 04-29-2024 Episodic Residual codes; unclassified (2 sources) Acquired absence of both cervix and uterus; Translations: [Acquired absence of both cervix and uterus] 04-29-2024 Episodic Spondylosis; intervertebral disc disorders; other back problems (5 sources) Chronic low back pain; Translations: [Chronic low back pain] 02-01-2024 Episodic Sprains and strains (4 sources) Sprain of right ankle; Translations: [Sprain [...] Results Test Name Value Interpretation Reference Range Facility US renal RTon 05-12-2024 US renal RT [facility] [place] [address] Ultrasound Report Signed Patient: Yanci Loco MR#: [id number] : 1985 Acct:[id number] Age/Sex: 38 / F ADM Date: 05/12/24 Loc: UL Room: Type: [facility] CLI Attending Dr: Penelope Garcia APRN, NP-C Ordering Provider: Penelope Garcia APRN, CNP Date of Service: 05/12/24 US/US renal RT: 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, unspecified Copies to: Penelope Garcia APRN, CNP EXAMINATION TYPE: US renal RT DATE OF EXAM ORDERED: 05/12/2024 1:48 PM HISTORY: Back pain. Malformation of kidney., COMPARISON: NONE TECHNIQUE: Realtime imaging of the right kidney and urinary bladder was performed. FINDINGS: Right kidney measurements: 13.0cm. No contour deformity mass, shadowing stone or hydronephrosis. The urinary bladder is normal in thickness without intraluminal filling defect. US/US renal RT IMPRESSION: Normal renal ultrasound. Impression dictated by: Mike Whitney Jr., D.O.05/12/2024 4:24 PM Dictation Location: [place] [address] Tech: Vrenell Pack Transcribed By: TANA 05/12/24 162 Dictated By: Mike Whitney Jr, DO 05/12/24 162 Signed By: 05/12/241623 Normal [facility] Basophils Auto (Bld) [#/Vol] on 04-30-2024 Basophils (Bld) [#/Vol] Automated basophil count 0.0-0.1 [facility] Basophils/100 WBC Auto (Bld) on 04-30-2024 Basophils/100 WBC (Bld) Automated basophil % 0.2-2.0 [facility] Cholesterol in LDL Calc [Mas s/Vol]on 04-30-2024 Cholesterol in LDL [Mass/Vol] Cholesterol in LDL [Mass/volume] in Serum or Plasma by calculation [facility] Comment on above: <100 mg/dl [id number] 0-129 mg/dl NEAR OR ABOVE [id number] mg/dl BORDERLINE [id number] mg/dl HIGH>190 mg/dl VERY HIGH Cholesterol in VLDL Calc [Ma ss/Vol]on 04-30-2024 Cholesterol in VLDL [Mass/Vol] Cholesterol in VLDL [Mass/volume] in Serum or Plasma by calculation [facility] Eosinophils/100 WBC Auto (Bl d)on 04-30-2024 Eosinophils/100 WBC (Bld) Automated eosinophil % 0.9-7.0 [facility] Erythrocyte distribution wid th Auto (RBC) [Ratio]on 04-30-2024 Erythrocyte distribution width (RBC) [Ratio] Erythrocyte distribution width [Ratio] by Automated count 11.0-15.0 [facility] Estimated glomerular filtrat ion rate (GFR) non- Americanon 04-30-2024 GFR/1.73 sq M.predicted among non-blacks MDRD (S/P/Bld) [Vol rate/Area] Estimated glomerular filtration rate (GFR) non- >=60 mL/min/1.73m 2 [facility] Globulin Calc (S) [Mass/Vol] on 04-30-2024 Globulin (S) [Mass/Vol] Serum globulin measurement by calculation (mass/volume) [facility] Hematocrit Auto (Bld) [Volum e fraction]on 04-30-2024 Hematocrit (Bld) [Volume fraction] Hematocrit [Volume Fraction] of Blood by Automated count 36.0-48.0 [facility] Hemoglobin [Mass/volume] in Bloodon 04-30-2024 Hemoglobin (Bld) [Mass/Vol] Hemoglobin [Mass/volume] in Blood 12.0-16.0 [facility] Laboratory - Chemistry and C hemistry - challengeon 04-30-2024 Albumin [Mass/Vol] 3.6 g/dL 3.4-5.0 [facility] ALP [Catalytic activity/Vol] 70 U/L 46-116 [facility] ALT [Catalytic activity/Vol] 28 U/L 14-59 [facility] AST [Catalytic activity/Vol] 17 U/L 15-37 [facility] Bilirubin [Mass/Vol] 0.3 mg/dL 0.2-1.0 [facility] Calcium [Mass/Vol] 8.6 mg/dL 8.5-10.1 [facility] Chloride [Moles/Vol] 104 mmol/L 98-107 [facility] Cholesterol [Mass/Vol] 227 mg/dL High <=200 [facility] Cholesterol in HDL [Mass/Vol] 59 mg/dL 40-60 [facility] Comment on above: > or =60 mg/dl - LOW CARDIOVASCULAR RISK<40 mg/dl - HIGH CARDIOVASCULAR RISK CO2 [Moles/Vol] 26.5 mmol/L 21.0-32.0 [facility] Creatinine [Mass/Vol] 1.02 mg/dL 0.55-1.02 [facility] GFR/1.73 sq M.predicted MDRD (S/P/Bld) [Vol rate/Area] mL/min/{1.73_m2} >=60 mL/min/1.73m 2 [facility] Glucose [Mass/Vol] 86 mg/dL 74-106 [facility] Potassium [Moles/Vol] 3.6 mmol/L 3.5-5.1 [facility] Protein [Mass/Vol] 7.4 g/dL 6.4-8.2 [facility] Sodium [Moles/Vol] 140 mmol/L 136-145 [facility] Triglyceride [Mass/Vol] 165 mg/dL High <=150 [facility] Urea nitrogen [Mass/Vol] 16.0 mg/dL 7.0-18.0 [facility] Urea nitrogen/Creatinine [Mass ratio] 15.7 mg/mg [facility] Laboratory - Hematology and Cell countson 04-30-2024 Immature granulocytes/100 WBC (Bld) 0.1 % 0.0-0.5 [facility] Leukocytes [#/volume] correc souleymane for nucleated erythrocytes in Blood by Automated counon 04-30-2024 WBC corrected for nucl RBC Auto (Bld) [#/Vol] Leukocytes [#/volume] corrected for nucleated erythrocytes in Blood by Automated coun 4.0-11.0 [facility] Lymphocytes Auto (Bld) [#/Vo l]on 04-30-2024 Lymphocytes (Bld) [#/Vol] Lymphocytes [#/volume] in Blood by Automated count 1.2-3.8 [facility] Lymphocytes/100 WBC Auto (Bl d)on 04-30-2024 Lymphocytes/100 WBC (Bld) Lymphocytes/100 leukocytes in Blood by Automated count 20.5-60.0 [facility] MCH Auto (RBC) [Entitic mass ]on 04-30-2024 MCH (RBC) [Entitic mass] MCH [Entitic mass] by Automated count 26.7-34.0 [facility] MCHC Auto (RBC) [Mass/Vol]on 04-30-2024 MCHC (RBC) [Mass/Vol] MCHC [Mass/volume] by Automated count 29.9-35.2 [facility] MCV Auto (RBC) [Entitic vol] on 04-30-2024 MCV (RBC) [Entitic vol] MCV [Entitic volume] by Automated count 81.0-99.0 [facility] Monocytes Auto (Bld) [#/Vol] on 04-30-2024 Monocytes (Bld) [#/Vol] Automated blood monocyte count 0.3-0.8 [facility] Monocytes/100 WBC Auto (Bld) on 04-30-2024 Monocytes/100 WBC (Bld) Automated monocyte % 1.7-12.0 [facility] Neutrophils Auto (Bld) [#/Vo l]on 04-30-2024 Neutrophils (Bld) [#/Vol] Neutrophils [#/volume] in Blood by Automated count 1.4-6.5 [facility] Neutrophils/100 WBC Auto (Bl d)on 04-30-2024 Neutrophils/100 WBC (Bld) Automated neutrophil % 43.0-75.0 [facility] No Panel Informationon 04-30 Eosinophils # (Auto) 0.1 10 3/uL 0.0-0.7 [facility] Immature Granulocyte # (Auto) 0.01 10 3/uL 0.00-0.03 [facility] Platelet mean volume Auto (B ld) [Entitic vol]on 04-30-2024 Platelet mean volume (Bld) [Entitic vol] Platelet mean volume [Entitic volume] in Blood by Automated count 9.5-13.5 [facility] Platelets Auto (Bld) [#/Vol] on 04-30-2024 Platelets (Bld) [#/Vol] Platelets [#/volume] in Blood by Automated count 150-450 [facility] RBC Auto (Bld) [#/Vol]on RBC (Bld) [#/Vol] Erythrocytes [#/volume] in Blood by Automated count 4.20-5.40 [facility] Serum or plasma albumin/glob ulin mass ratioon 04-30-2024 Albumin/Globulin [Mass ratio] Serum or plasma albumin/globulin mass ratio [facility] Serum or plasma anion gap de terminationon 04-30-2024 Anion gap [Moles/Vol] Serum or plasma an ion gap determination [facility] Serum or plasma total choles terol/high density lipoprotein (HDL) cholesterol mass lucie 04-30-2024 Cholesterol.total/Cho lesterol in HDL [Mass ratio] Serum or plasma total cholesterol/high density lipoprotein (HDL) cholesterol mass [facility] Comment on above: 3.3 - 4.4 LOW RISK4. 4 - 7.1 AVERAGE RISK7.1 - 11.0 MODERATE RISK>11.0 HIGH RISK XR Spine Scoliosis 1 viewon 08-16-2023 XR [...] mGy = na DAP = na Normal [facility] Consent for Treatmenton 07-31 Consent for Treatment [id number] .00TIFF Normal [facility] Physician Orderon 08-14-2023 Physician Order [id number]# 1.00TIFF [facility] XR ANKLE RT MIN 3 VIEWSon [...] Santy RO Date: 2021-12-31 22:43 Normal [facility] CT NECK ST W CONon 2 [...] for additional evaluation. Electronically authenticated by: LIZANDRO DELARCUZ Date: 2021-09-13 17:01 Normal [facility] XR HIP LT 2 3V W [...] by: SANNA HOOD Date: 2021-04-18 11:23 Normal [facility] Vital Signs Date Time Vital Sign Value Performing Clinician Faci lity 04-29-2024 12:59-0500 Body height 165.1 cm [facility] 04-29-2024 12:59-0500 Body temperature 98.4 [degF] [facility] 04-29-2024 12:59-0500 Diastolic blood pressure 72 mm[Hg] [facility] 04-29-2024 12:59-0500 Heart rate 80 /min [facility] 04-29-2024 12:59-0500 SaO2% (BldA) [Mass fraction] 99 % [facility] 04-29-2024 12:59-0500 Systolic blood pressure 116 mm[Hg] [facility] 02-01-2024 09:28-0400 Body height 165.1 cm [facility] 02-01-2024 09:28-0400 Body mass index (BMI) [Ratio] 30.9 kg/m2 [facility] 02-01-2024 09:28-0400 Body temperature 96.8 [degF] [facility] 02-01-2024 09:28-0400 Body weight 84.48 kg [facility] 02-01-2024 09:28-0400 Diastolic blood pressure 76 mm[Hg] [facility] 02-01-2024 09:28-0400 Heart rate 70 /min [facility] 02-01-2024 09:28-0400 SaO2% (BldA) [Mass fraction] 98 % [facility] 02-01-2024 09:28-0400 Systolic blood pressure 124 mm[Hg] [facility] 09-27-2023 13:58-0400 Body height 165.1 cm [facility] 09-27-2023 13:58-0400 Body mass index (BMI) [Ratio] 30.4 kg/m2 [facility] 09-27-2023 13:58-0400 Body weight 83.06 kg [facility] 09-27-2023 13:58-0400 Diastolic blood pressure 76 mm[Hg] [facility] 09-27-2023 13:58-0400 Heart rate 70 /min [facility] 09-27-2023 13:58-0400 Respiratory rate 12 /min [facility] 09-27-2023 13:58-0400 Systolic blood pressure 122 mm[Hg] [facility] 08-06-2023 15:26-0400 Body height 165.1 cm [facility] 08-06-2023 15:26-0400 Body mass index (BMI) [Ratio] 29.7 kg/m2 [facility] 08-06-2023 15:26-0400 Body temperature 97.5 [degF] [facility] 08-06-2023 15:26-0400 Body weight 81.19 kg [facility] 08-06-2023 15:26-0400 Diastolic blood pressure 74 mm[Hg] [facility] 08-06-2023 15:26-0400 Heart rate 71 /min [facility] 08-06-2023 15:26-0400 Respiratory rate 18 /min [facility] 08-06-2023 15:26-0400 SaO2% (BldA) [Mass fraction] 98 % [facility] 08-06-2023 15:26-0400 Systolic blood pressure 110 mm[Hg] [facility] 06-20-2023 14:49-0400 Body height 165.1 cm [facility] 06-20-2023 14:49-0400 Body mass index (BMI) [Ratio] 29.7 kg/m2 [facility] 06-20-2023 14:49-0400 Body weight 81.19 kg [facility] 06-20-2023 14:49-0400 Diastolic blood pressure 80 mm[Hg] [facility] 06-20-2023 14:49-0400 Heart rate 78 /min [facility] 06-20-2023 14:49-0400 SaO2% (BldA) [Mass fraction] 98 % [facility] 06-20-2023 14:49-0400 Systolic blood pressure 116 mm[Hg] [facility] Encounters Encounter Date Encounter Type Care Provider Facility Start: 05-12-2024 End: 05-12-2024 Patient encounter procedure Penelope Garcia APRN Work Phone: [facility] [place] Work Phone: Start: 05-12-2024 End: 05-12-2024 ambulatory Penelope Garcia APRN Work Phone: [facility] Work Phone: Start: 04-30-2024 Non-patient / Non-visit Ruthie Garcia APRN Work Phone: [facility] Work Phone: Start: 04-29-2024 Patient encounter status [facility] Start: 04-29-2024 End: 04-29-2024 ambulatory [place] Work Phone: Start: 04-29-2024 End: 04-29-2024 Encounter for general adult medical examination without abnormal findings [facility] Start: 04-29-2024 End: 04-29-2024 Patient encounter procedure [facility] Work Phone: Start: 04-28-2024 End: 04-28-2024 ambulatory Katie Lipscomb MD Facility: [facility] Start: 04-22-2024 Non-patient / Non-visit [facility] Work Phone: Start: 03-10-2024 End: 03-10-2024 ambulatory Katie Lipscomb MD Facility: [place] Start: 02-11-2024 End: 02-11-2024 ambulatory Katie Lipscomb MD Facility:[facility] Start: 02-01-2024 End: 02-01-2024 ambulatory [place] Work Phone: Start: 02-01-2024 End: 02-01-2024 Patient encounter procedure [facility] Work Phone: Start: 09-27-2023 End: 09-27-2023 ambulatory [place] Work Phone: Start: 09-27-2023 End: 09-27-2023 Patient encounter procedure [facility] Work Phone: Start: 08-14-2023 End: 08-15-2023 ambulatory PENELOPE GARCIA [place] Start: 08-14-2023 End: 08-14-2023 Patient encounter procedure PENELOPE GARCIA [facility] Start: 08-06-2023 End: 08-06-2023 ambulatory [place] Work Phone: Start: 08-06-2023 End: 08-06-2023 Patient encounter procedure [facility] Work Phone: Start: 06-20-2023 End: 06-20-2023 ambulatory [place] Work Phone: Start: 06-20-2023 End: 06-20-2023 Patient encounter procedure [facility] Work Phone: Start: 06-06-2023 End: 06-06-2023 [...] Procedures Date Procedure Procedure Detail Performing Clinician Start: 05-12-2024 Ultrasonography of right kidney Penelope Garcia APRN Work Phone: H/O: hysterectomy History of hysterectomy History of decompres fly of median nerve History of carpal tunnel surgery of right wrist Ligation of fallopian tube J DONNA GARCIA right forearm PENELOPE DORAN Plan of Treatment Date Care Activity Detail Author Start: 04-29-[address] [facility] Work Phone: Start: 02-01-[address] [facility] Work Phone: Start: 06-20-[address] [facility] Work Phone: Comprehensive metabo lic 2000 panel - Serum or Plasma [facility] DXA Skeletal system. axial Views for bone density [facility] Patient Education Low back pain in adults [facility] Work Phone: Patient referral [facility] Work Phone: [facility] - bilateral [facility] Payers Date Payer Category Payer Self-pay 2023 Unknown 2017 Medicaid [id number] 1985 Unknown [id number] 2.16.84 [id number] 1985 Unknown [id number] 2.16.84 [id number] 1985 Unknown [id number] 2.16.84 [id number] 1985 Unknown [id number] 2.16.84 [id number] 1985 Unknown [id number] 2.16.84 [id number] 1985 Unknown [id number] 2.16.84 0.1.752534.3.579.2.1259 1985 Unknown [id number] 2.16.84 0.1.860989.3.579.2.1259 1985 Unknown [id number] 2.16.84 0.1.872930.3.579.2.1259 1986 Unknown [id number] 2.16.84 0.1.859084.3.579.2.1259 1986 Unknown [id number] 2.16.84 0.1.010835.3.579.2.1259 1986 Unknown [id number] 2.16.84 0.1.587306.3.579.2.1259 1986 Unknown [id number] 2.16.840 .1.703435.3.579.2.1259 1986 Unknown [id number] 2.16.840 .1.054138.3.579.2.1259 1986 Unknown [id number] 2.16.840 .1.388238.3.579.2.1259 1986 Unknown [id number] 2.16.840 .1.394318.3.579.2.1259 1986 Unknown [id number] 2.16.840 .1.128380.3.579.2.1259 1986 Unknown [id number] 2.16.8 40.1.066895.3.579.2.727 1986 Unknown [id number] 2.16. 840.1.655437.3.579.2.196 1986 Unknown [id number] 2.16. 840.1.333868.3.579.2.196 1986 Unknown [id number] 2.16. 840.1.425519.3.579.2.196 1959 Unknown [id number] Medicaid [employer] [id number] Unknown [id number] 2.16.8 40.1.563346.3.579.2.531 Social History Date Type Detail Facility Start: 06-20-2023 Tobacco smoking stat us [facility] Never smoked tobacco (finding) [facility] Start: 1985 Sex Assigned At Female F [facility] Tobacco smoking status [facility] Start: 02-01-2024 End: 02-01-2024 Tobacco smoking status PAIS Ex-smoker (finding) [facility] Start: 04-29-2024 End: 05-13-2024 Sex Female (finding) [facility] Clinical Notes 04-07-2021 to 05-12-2024 Note Date & Type Note Facility 05-12-2024 Radiology Diagnostic study note [facility] [place] [id number] Ultrasound Report Signed Patient: Yanci Loco MR#: [id number] : 1985 Acct:[id number] Age/Sex: 38 / F ADM Date: 5 Loc: Room: Type: [facility] Attending Dr: LUCRETIA Andino APRNC Ordering Provider: Penelope Garcia APRN, CNP Date of Service: 05/12/24 US/US renal RT: 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, unspecified Copies to: Penelope Garcia APRN, CNP~ EXAMINATION TYPE: US renal RT DATE OF EXAM ORDERED: 05/12/2024 1:48 PM HISTORY: Back pain. Malformation of kidney., COMPARISON: NONE TECHNIQUE: Realtime imaging of the right kidney and urinary bladder was performed. FINDINGS: Right kidney measurements: 13.0cm. No contour deformity mass, shadowing stone or hydronephrosis. The urinary bladder is normal in thickness without intraluminal filling defect. US/US renal RT IMPRESSION: Normal renal ultrasound. Impression dictated by: Mike Whitney Jr., NidiaOPer05/12/2024 4:24 PM Dictation Location: [place] [address] Tech: Vernell Sirena Transcribed By: [facility] 05/12/24 1624 Dictated By: Mike Whitney Jr, DO 05/12/24 1623 Signed By: 05/12/24 1624 [facility] 04-29-2024 Evaluation note Diagnosis Onset Date Resolution Family history of osteoporosis acute April 29 12:56pm History of hysterectomy acute J anuary 2024 12:56pm Kidney anomaly, congenital acute April 29 12:56pm Screening for osteoporosis acute April 29 12:56pm Sprain of right ankle acute Apr 12:56pm [facility] Work Phone: 1(837) 649-388811-01-2024 Evaluation note* Diagnosis Onset Date Resolution Status Admit Date Anxiety acute February 01, 2024 9:21am Arthritis acute February 01, 2024 9:21am Chronic lower back pain acute N ovember 2023 9:21am Deformity of right lower extremity acute January 31 9:21am Depression acute February 01, 2024 9:21am GERD (gastroesophageal reflu x disease) acute January 31 9:21am Stress headaches acute February 01, 2024 9:21am Family history of osteoporosis acute April 29, 2024 12:56pm History of hysterectomy acute J anuary 2024 12:56pm Kidney anomaly, congenital acute April 29, 2024 12:56pm Screening for osteoporosis acute April 29, 2024 12:56pm Sprain of right ankle acute Dawit acostary 2024 12:56pm Wellness examination acute Herminio willoughbyy 2024 12:56pm [facility] Work Phone: 1(885) 999-152103-20-2024 Hospital Discharge instructionsAmbulatory Orders* Referral to Orthopedic Surgery Time Frame: 06/20/23, Location: None Selected [facility] Work Phone: 1(694) 300-354310-10-2022 NotePROCEDURE: XR ANKLE RT MIN 3 VIEWS HISTORY: Contusion of right ankle ; acute anterior right ankle pain since injury 16 days ago COMPARISON: XR ankle right 12/31/2021 FINDINGS: BONES:No fracture, acute abnormality, or significant arthropathy. SOFT TISSUES:No visible soft tissue swelling. EFFUSION:None visible. OTHER: Negative. IMPRESSION: 1. Normal examination. Electronically authenticated by: LIZANDRO DELACRUZ Date: 2022-01-09 [facility] NotePROCEDURE: XR FEMUR LT COMPARISON: None. HISTORY: Unspecified fall FINDINGS: BONES:No fracture, acute abnormality, or significant arthropathy. SOFT TISSUES:Negative. No visible soft tissue swelling. EFFUSION:None visible. OTHER: Negative. IMPRESSION: No acute abnormality Electronically authenticated by: TEODORO WHITLEY Date: 2021-04-07 09:14[facility] No data available for this section [facility] Diagnosis Onset Date Resolution Status Anxiety acute Asthma acute Depression acute Irregular heart beat acute Maxillary sinusitis acute Scoliosis acute Trigger finger of right hand acute [facility] Work Phone: Evaluation note* Diagnosis Onset Date Resolution Status Anxiety acute Asthma acute Depression acute Irregular heart beat acute Maxillary sinusitis acute Scoliosis acute Trigger finger of right hand acute Congenital heart defect acut e Irregular heart beat acute Scoliosis acute [facility] Work Phone: Evaluation note* Diagnosis Onset Date Resolution Status Congenital heart defect acut e Deformity of right lower extremity acute Irregular heart beat acute Scoliosis acute Stress headaches acute Trigger finger of right hand acute Rash acute [facility] Work Phone: Evaluation note* Diagnosis Onset Date Resolution Status Anxiety acute Chronic lower back pain acut e Deformity of right lower extremity acute Depression acute GERD (gastroesophageal reflux disease) acute Stress headaches acute [facility] Work Phone: Hospital Discharge instructions No data available for this section [facility] Orders* Referral to Pain Management Time Frame: 02/01/24, Location: None [facility] Work Phone: Hospital Discharge instructionsAmbulatory Orders* Referral to Podiatry Time Frame: 04/29/24, Location: None [facility] Work Phone: Progress note No data available for this section [facility] Summary Purpose Family History No Family History [...] 12:56pm Wellness examination April 29, 2024 12:56pm Chief Complaint Admit Date Amb Documentation April 22, 2024 9 :34am ER f/u right foot injury April 29, 025 12:56pm Q63.9 May 12, 2024 1:46pm Reason for Visit Admit Date Family history of osteoporosis April 032024 12:56pm History of hysterectomy April 29 12:56pm Kidney anomaly, congenital April 29, 2024 12:56pm Screening for osteoporosis April 29, 2024 12:56pm Sprain of right ankle April 29, 2024 12:56pm Additional Source Comments INFORMATION SOURCE (unrecogn ized section and content) DATE CREATED AUTHOR 01/10/2022 [facility] DATE CREATED AUTHOR AUTHOR'S ORGANIZ ATION 06/07/2023 [facility] DATE CREATED AUTHOR AUTHOR'S ORGANIZ ATION 08/16/2023 [facility] DATE CREATED AUTHOR AUTHOR'S ORGANIZ ATION 05/04/2024 [facility] DATE CREATED AUTHOR AUTHOR'S ORGANIZ ATION 05/19/2024 [facility] Care Teams (unrecognized sec tion and content) Team Status: Active Member Role Status Dates Penelope Garcia APRN PORTRAIT PAINTER-C Primary Care Provider Active Team Status: Inactive Member Role Status Dates Penelope Garcia GROUP ACTIVITIES AIDE PORTRAIT PAINTER-C Primary Care Provider, Attending Provider Active Start: June 20, 2023 End: June 20, 2023 Team Status: Inactive Member Role Status Dates Penelope Garcia , GROUP ACTIVITIES AIDE PORTRAIT PAINTER-C Primary Care Provider, Attending Provider Active Start: August 06, 2023 End: August 06, 2023 Team Status: Inactive Member Role Status Dates Penelope Jose GROUP ACTIVITIES AIDE PORTRAIT PAINTER-C Primary Care Provider, Attending Provider Active Start: September 27, 2023 End: September 27, 2023 Team Status: Inactive Member Role Status Dates Penelope JASSI GarciaN PORTRAIT PAINTER-C Primary Care Provider, Attending Provider Active Start: February 01, 2024 End: February 01, 2024 Team Status: Active Member Role Status Dates Penelope Garcia GROUP ACTIVITIES AIDE PORTRAIT PAINTER-C Primary Care Provider Active Start: April Khadijah Corbin CMA Attending Provider Active Start: April 22, 2024 Team Status: Inactive Member Role Status Dates Penelope Garcia APRN PORTRAIT PAINTER-C Primary Care Provider, Attending Provider Active Start: April 29, 2024 End: April 29, 2024 Team Status: Active Member Role Status Dates Penelope Garcia GROUP ACTIVITIES AIDE PORTRAIT PAINTER-C Primary Care Provider, Attending Provider Active Start: April 30, 2024 Team Status: Inactive Member Role Status Dates Penelope Garcia GROUP ACTIVITIES AIDE PORTRAIT PAINTER-C Primary Care Provider, Attending Provider Active Start: May 12, 2024 End: May 12, 2024 Goals (unrecognized section and content) Goals [...] BE BASED ON THE PRIMARY CLINICAL RECORDS. datatracker [facility]. provides no warranty or guarantee of the accuracy or completeness of information in this document.
[2024-05-26 10:09] VITALS: PULSE 86; O2SAT 99
[2024-05-26] MEDS: 0.9 % SODIUM CHLORIDE 10 ML SYRINGE - SALINE FLUSH INJ (10:09)
[2024-05-26] MEDS: BUPIVACAINE HCL 0.25% PF 25 MG/10 ML VIAL INJ (10:09)
[2024-05-26] MEDS: LIDOCAINE HCL 2% 400 MG/20 ML MDV 3 ML INJ (10:10)
[2024-05-26] MEDS: IOHEXOL 240 MG/ML - 10 ML VIAL 24 MG INJ (10:10)
[2024-05-26] MEDS: METHYLPREDNISOLONE ACETATE 80 MG/ML VIAL INJ (10:10)
[2024-05-26 10:11] VITALS: BP 147/82; BP 174/87; PULSE 81; O2SAT 100
--- NOTE | 2024-05-26 10:13 | W.PM.PROCNOT ---
Date of procedure: 05/26/24 Pre-op diagnosis: Pain due to lumbar stenosis with neurogenic claudication Post-op diagnosis: same as pre-op Procedure: Procedure: Bilateral L4-5 transforaminal epidural steroid injection Medications: Bupivacaine 0.25% 2cc, lidocaine 2% 1cc, depomedrol 80mg The patient was seen and examined in the preoperative holding area.? Informed consent was obtained and placed on the chart.? Patient was brought to the medical procedure unit and placed in the prone position where a timeout was completed verifying the correct patient, procedure site, position, and planned special equipment using sterile aseptic technique.? Under direct fluoroscopic visualization a 25-gauge Quincke tipped spinal needle was advanced at level left L4-5 to the designated neural foramen where contrast dye was injected to show adequate spread.? There was no evidence of vascular or adverse uptake.? Epidural spread was appreciated.? The above-mentioned injectate was then placed in a 1.5 mL aliquot preceded by negative aspiration.? The needle was removed. The same procedure, at the same level, was completed on the opposite side. ? Patient was taken to the postprocedural recovery area and monitored for an appropriate length of time before found suitable for discharge in the accompaniment of a responsible adult. Anesthesia: Local Surgeon: Katie Lipscomb Pathology: none sent Condition: stable Disposition: no change
== END 2024-05-26 10:33 | disposition home or self-care (01) ==
PROVIDERS: Family Provider Physician Assistant; PCP Nurse Practitioner Family; Visit Provider Anesthesiology
DX: M48.062 Spinal stenosis, lumbar region with neurogenic claudication (principal)
CPT/HCPCS: 64483; J0665; J1010; Q9966

== ENCOUNTER 2024-06-04 09:00 | Outpatient (OUT) | payer OTHER, SELFPAY ==
--- OUTSIDE RECORDS SUMMARY | 2024-06-04 09:24 | XMS_ITS | CCD ---
Author Organization [facility] Care Team Providers Care Geriatric Physician Name Role Phone KOLBY KIRK Admitting Unavailable [...] Attending Unavailable ANJELICA MARTINS Primary Care Physician [phone] PENELOPE GARCIA Attending Unavailab le PENELOPE GARCIA Admitting Unavailab le Penelope Garcia APRN Primary Care Provider Penelope Garcia APRN Attending Provider [phone] Penelope Garcia Attending Unavailable Penelope Garcia Primary Care Unavailable ePnelope Garcia Admitting Unavailable Giedraitis , Andri Vanabel Attending Unavailable Giedraitis MD, Andrius Vytautas Attending Unavailable Giedraitis MD, Andrius Vytautas Attending Unavailable Giedraitis MD, Andrius Vytautas Attending Unavailable Allergies Allergy Classification Reported Allergen(s) Allergy Type Date of Onset Reaction(s) Facility (1 source) cefdinir Drug Allergy [address] [facility] Repository (7 sources) Penicillins Drug allergy (disorder) [address] [facility] Repository (7 sources) predniSONE Drug Allergy [address] [facility] Repository (1 source) traMADol Drug Allergy [address] [facility] Repository (1 source) Pertussis Immune Globulin Drug allergy (disorder) [address] [facility] Repository (9 sources) spinach allergenic extract; Translations: [Spinach (substance)] Drug Allergy 4 Airway constriction (finding) [facility] (7 sources) bee venom protein (honey bee); Translations: [bee venom protein (honey bee)] Allergy to substance 4 Anaphylaxis [facility] (7 sources) diphtheria,pert ussis (acellular),te; Translations: [diphtheria,per tussis (acellular),te] Allergy to substance 4 Unknown Reaction [facility] (2 sources) Bee/Wasp/Ant venom; Translations: [Bee Stings] Drug allergy [facility] (2 sources) Penicillin; Translations: [penicillin] Drug Allergy [facility] (2 sources) Pertussis Vaccine; Translations: [Whooping-cough vaccine] Drug Allergy Airway constriction (finding) [facility] (2 sources) Sodium Bicarbonate; Translations: [Baking soda] Drug Allergy Red color (finding) [facility] (1 source) Penicillins Drug allergy (disorder) [address] [place] [address] Repository (1 source) predniSONE Drug Allergy [address] [place] [address] Repository Medications Current Medications Medication Drug Class(es) [...] MG PO Daily February 01, 2024 8:44am [id number] 0.3 ml EPINEPHrine 1 mg/ml auto-injector (6 [...] US renal RTon 05-12-2024 US renal RT [facility] [place] [address] Ultrasound Report Signed Patient: Yanci Loco MR#: [id number] : 1985 Acct:[id number] Age/Sex: 38 / F ADM Date: 05/12/24 Loc: UL Room: Type: [facility] Attending Dr: Penelope Garcia APRN, WEB CONTENT SPECIALIST-C Ordering Provider: Penelope Garcia APRN, CALL CENTER RECRUITER Date of Service: 05/12/24 US/US renal RT: 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, unspecified Copies to: Penelope Garcia APRN, CALL CENTER RECRUITER EXAMINATION TYPE: US renal RT DATE OF [...] Whitney Jr., D.O.05/12/2024 4:24 PM Dictation Location: [place] [address] Tech: Vernell Pack Transcribed By: TANA 05/12/24 1624 Dictated By: Mike Whitney Jr, DO 05/12/24 162 Signed By: 05/12/24 1624 Normal [facility] Basophils Auto (Bld) [#/Vol] on 04-30-2024 Basophils (Bld) [#/Vol] Automated basophil count 0.0-0.1 [facility] Basophils/100 WBC Auto (Bld) on 04-30-2024 Basophils/100 WBC (Bld) Automated basophil % 0.2-2.0 [facility] Cholesterol in LDL Calc [Mas s/Vol]on 04-30-2024 Cholesterol in LDL [Mass/Vol] Cholesterol in LDL [Mass/volume] in Serum or Plasma by calculation [facility] Comment on above: <100 mg/dl [id number] 0-129 mg/dl NEAR OR ABOVE [id number] mg/dl BORDERLINE [id number] mg/dl HIGH>190 mg/dl VERY HIGH Cholesterol in VLDL Calc [Ma ss/Vol]on 04-30-2024 Cholesterol in VLDL [Mass/Vol] Cholesterol in VLDL [Mass/volume] in Serum or Plasma by calculation [facility] Eosinophils/100 WBC Auto (Bl d)on 04-30-2024 Eosinophils/100 WBC (Bld) Automated eosinophil % 0.9-7.0 [facility] Erythrocyte distribution wid th Auto (RBC) [Ratio]on 04-30-2024 Erythrocyte distribution width (RBC) [Ratio] Erythrocyte distribution width [Ratio] by Automated count 11.0-15.0 [facility] Estimated glomerular filtrat ion rate (GFR) non- Americanon 04-30-2024 GFR/1.73 sq M.predicted among non-blacks MDRD (S/P/Bld) [Vol rate/Area] Estimated glomerular filtration rate (GFR) non- >=60 mL/min/1.73m 2 [facility] Globulin Calc (S) [Mass/Vol] on 04-30-2024 Globulin (S) [Mass/Vol] Serum globulin measurement by calculation (mass/volume) [facility] Hematocrit Auto (Bld) [Volum e fraction]on 04-30-2024 Hematocrit (Bld) [Volume fraction] Hematocrit [Volume Fraction] of Blood by Automated count 36.0-48.0 [facility] Hemoglobin [Mass/volume] in Bloodon 04-30-2024 Hemoglobin (Bld) [Mass/Vol] Hemoglobin [Mass/volume] in Blood 12.0-16.0 [facility] Laboratory - Chemistry and C hemistry - challengeon 04-30-2024 Albumin [Mass/Vol] 3.6 g/dL 3.4-5.0 [facility] ALP [Catalytic activity/Vol] 70 U/L 46-116 [facility] ALT [Catalytic activity/Vol] 28 U/L 14-59 [facility] AST [Catalytic activity/Vol] 17 U/L 15-37 [facility] Bilirubin [Mass/Vol] 0.3 mg/dL 0.2-1.0 [facility] Calcium [Mass/Vol] 8.6 mg/dL 8.5-10.1 [facility] Chloride [Moles/Vol] 104 mmol/L 98-107 [facility] Cholesterol [Mass/Vol] 227 mg/dL High <=200 [facility] Cholesterol in HDL [Mass/Vol] 59 mg/dL 40-60 [facility] Comment on above: > or =60 mg/dl - LOW CARDIOVASCULAR RISK<40 mg/dl - HIGH CARDIOVASCULAR RISK CO2 [Moles/Vol] 26.5 mmol/L 21.0-32.0 [facility] Creatinine [Mass/Vol] 1.02 mg/dL 0.55-1.02 [facility] GFR/1.73 sq M.predicted MDRD (S/P/Bld) [Vol rate/Area] mL/min/{1.73_m2} >=60 mL/min/1.73m 2 [facility] Glucose [Mass/Vol] 86 mg/dL 74-106 [facility] Potassium [Moles/Vol] 3.6 mmol/L 3.5-5.1 [facility] Protein [Mass/Vol] 7.4 g/dL 6.4-8.2 [facility] Sodium [Moles/Vol] 140 mmol/L 136-145 [facility] Triglyceride [Mass/Vol] 165 mg/dL High <=150 [facility] Urea nitrogen [Mass/Vol] 16.0 mg/dL 7.0-18.0 [facility] Urea nitrogen/Creatinine [Mass ratio] 15.7 mg/mg [facility] Laboratory - Hematology and Cell countson 04-30-2024 Immature granulocytes/100 WBC (Bld) 0.1 % 0.0-0.5 [facility] Leukocytes [#/volume] correc souleymane for nucleated erythrocytes in Blood by Automated counon 04-30-2024 WBC corrected for nucl RBC Auto (Bld) [#/Vol] Leukocytes [#/volume] corrected for nucleated erythrocytes in Blood by Automated coun 4.0-11.0 [facility] Lymphocytes Auto (Bld) [#/Vo l]on 04-30-2024 Lymphocytes (Bld) [#/Vol] Lymphocytes [#/volume] in Blood by Automated count 1.2-3.8 [facility] Lymphocytes/100 WBC Auto (Bl d)on 04-30-2024 Lymphocytes/100 WBC (Bld) Lymphocytes/100 leukocytes in Blood by Automated count 20.5-60.0 [facility] MCH Auto (RBC) [Entitic mass ]on 04-30-2024 MCH (RBC) [Entitic mass] MCH [Entitic mass] by Automated count 26.7-34.0 [facility] MCHC Auto (RBC) [Mass/Vol]on 04-30-2024 MCHC (RBC) [Mass/Vol] MCHC [Mass/volume] by Automated count 29.9-35.2 [facility] MCV Auto (RBC) [Entitic vol] on 04-30-2024 MCV (RBC) [Entitic vol] MCV [Entitic volume] by Automated count 81.0-99.0 [facility] Monocytes Auto (Bld) [#/Vol] on 04-30-2024 Monocytes (Bld) [#/Vol] Automated blood monocyte count 0.3-0.8 [facility] Monocytes/100 WBC Auto (Bld) on 04-30-2024 Monocytes/100 WBC (Bld) Automated monocyte % 1.7-12.0 [facility] Neutrophils Auto (Bld) [#/Vo l]on 04-30-2024 Neutrophils (Bld) [#/Vol] Neutrophils [#/volume] in Blood by Automated count 1.4-6.5 [facility] Neutrophils/100 WBC Auto (Bl d)on 04-30-2024 Neutrophils/100 WBC (Bld) Automated neutrophil % 43.0-75.0 [facility] No Panel Informationon 04-30 Eosinophils # (Auto) 0.1 10 3/uL 0.0-0.7 [facility] Immature Granulocyte # (Auto) 0.01 10 3/uL 0.00-0.03 [facility] Platelet mean volume Auto (B ld) [Entitic vol]on 04-30-2024 Platelet mean volume (Bld) [Entitic vol] Platelet mean volume [Entitic volume] in Blood by Automated count 9.5-13.5 [facility] Platelets Auto (Bld) [#/Vol] on 04-30-2024 Platelets (Bld) [#/Vol] Platelets [#/volume] in Blood by Automated count 150-450 [facility] RBC Auto (Bld) [#/Vol]on RBC (Bld) [#/Vol] Erythrocytes [#/volume] in Blood by Automated count 4.20-5.40 [facility] Serum or plasma albumin/glob ulin mass ratioon 04-30-2024 Albumin/Globulin [Mass ratio] Serum or plasma albumin/globulin mass ratio [facility] Serum or plasma anion gap de terminationon 04-30-2024 Anion gap [Moles/Vol] Serum or plasma an ion gap determination [facility] Serum or plasma total choles terol/high density lipoprotein (HDL) cholesterol mass lucie 04-30-2024 Cholesterol.total/Cho lesterol in HDL [Mass ratio] Serum or plasma total cholesterol/high density lipoprotein (HDL) cholesterol mass rat [facility] Comment on above: 3.3 - 4.4 [...] in mGy = na DAP = na [facility] Consent for Treatmenton 07-31 Consent for Treatment [id number] .00TIFF [facility] Physician Orderon 08-14-2023 Physician Order [id number]# 1.00TIFF [facility] XR ANKLE RT MIN 3 [...] Normal [facility] CT NECK ST W CONon 2 CT [...] Normal [facility] XR HIP LT 2 3V W PELVISon [...] Normal [facility] Vital Signs Date Time Vital Sign Value Performing Clinician Faci lity 04-29-2024 12:59-0500 Body height 165.1 cm [facility] 04-29-2024 12:59-0500 Body temperature 98.4 [degF] [facility] 04-29-2024 12:59-0500 Diastolic blood pressure 72 mm[Hg] [facility] 04-29-2024 12:59-0500 Heart rate 80 /min [facility] 04-29-2024 12:59-0500 SaO2% (BldA) [Mass fraction] 99 % [facility] 04-29-2024 12:59-0500 Systolic blood pressure 116 mm[Hg] [facility] 02-01-2024 09:28-0400 Body height 165.1 cm [facility] 02-01-2024 09:28-0400 Body mass index (BMI) [Ratio] 30.9 kg/m2 [facility] 02-01-2024 09:28-0400 Body temperature 96.8 [degF] [facility] 02-01-2024 09:280400 Body weight 84.48 kg [facility] 02-01-2024 09:28-0400 Diastolic blood pressure 76 mm[Hg] [facility] 02-01-2024 09:28-0400 Heart rate 70 /min [facility] 02-01-2024 09:28-0400 SaO2% (BldA) [Mass fraction] 98 % [facility] 02-01-2024 09:28-0400 Systolic blood pressure 124 mm[Hg] [facility] 09-27-2023 13:58-0400 Body height 165.1 cm [facility] 09-27-2023 13:58-0400 Body mass index (BMI) [Ratio] 30.4 kg/m2 [facility] 09-27-2023 13:58-0400 Body weight 83.06 kg [facility] 09-27-2023 13:58-0400 Diastolic blood pressure 76 mm[Hg] [facility] 09-27-2023 13:58-0400 Heart rate 70 /min [facility] 09-27-2023 13:58-0400 Respiratory rate 12 /min [facility] 09-27-2023 13:58-0400 Systolic blood pressure 122 mm[Hg] [facility] 08-06-2023 15:26-0400 Body height 165.1 cm [facility] 08-06-2023 15:26-0400 Body mass index (BMI) [Ratio] 29.7 kg/m2 [facility] 08-06-2023 15:26-0400 Body temperature 97.5 [degF] [facility] 08-06-2023 15:26-0400 Body weight 81.19 kg [facility] 08-06-2023 15:26-0400 Diastolic blood pressure 74 mm[Hg] [facility] 08-06-2023 15:26-0400 Heart rate 71 /min [facility] 08-06-2023 15:26-0400 Respiratory rate 18 /min [facility] 08-06-2023 15:26-0400 SaO2% (BldA) [Mass fraction] 98 % [facility] 08-06-2023 15:26-0400 Systolic blood pressure 110 mm[Hg] [facility] 06-20-2023 14:49-0400 Body height 165.1 cm [facility] 06-20-2023 14:49-0400 Body mass index (BMI) [Ratio] 29.7 kg/m2 [facility] 06-20-2023 14:49-0400 Body weight 81.19 kg [facility] 06-20-2023 14:49-0400 Diastolic blood pressure 80 mm[Hg] [facility] 06-20-2023 14:49-0400 Heart rate 78 /min [facility] 06-20-2023 14:49-0400 SaO2% (BldA) [Mass fraction] 98 % [facility] 06-20-2023 14:49-0400 Systolic blood pressure 116 mm[Hg] [facility] Encounters Encounter Date Encounter Type Care Provider Facility Start: 05-26-2024 End: 05-26-2024 ambulatory [facility]comb MD [facility] Start: 05-12-2024 End: 05-12-2024 Patient encounter procedure Penelope Garcia APRN Work Phone: [facility] [place] Work Phone: Start: 05-12-2024 End: 05-12-2024 ambulatory Penelope Garcia APRN Work Phone: [facility] Work Phone: Start: 04-30-2024 Non-patient / Non-visit Ruthie Garcia APRN Work Phone: [facility] Work Phone: Start: 04-29-2024 Patient encounter status [facility] Start: 04-29-2024 End: 04-29-2024 ambulatory [facility] Work Phone: Start: 04-29-2024 End: 04-29-2024 Encounter for general adult medical examination without abnormal findings [facility] Start: 04-29-2024 End: 04-29-2024 Patient encounter procedure [facility] Work Phone: Start: 04-28-2024 End: 04-28-2024 ambulatory Katie Lipscomb MD Facility[facility] Start: 04-22-2024 Non-patient / Non-visit [facility] Work Phone: Start: 03-10-2024 End: 03-10-2024 ambulatory Katie Lipscomb MD Facility[facility] Start: 02-11-2024 End: 02-11-2024 ambulatory Katie Lipscomb MD Facility[facility] Start: 02-01-2024 End: 02-01-2024 ambulatory [facility] Work Phone: Start: 02-01-2024 End: 02-01-2024 Patient encounter procedure [facility] Work Phone: Start: 09-27-2023 End: 09-27-2023 ambulatory [facility] Work Phone: Start: 09-27-2023 End: 09-27-2023 Patient encounter procedure [facility] Work Phone: Start: 08-14-2023 End: 08-15-2023 ambulatory PENELOPE GARCIA Facility:[facility] Start: 08-14-2023 End: 08-14-2023 Patient encounter procedure PENELOPE GARCIA [facility] Start: 08-06-2023 End: 08-06-2023 ambulatory [facility] Work Phone: Start: 08-06-2023 End: 08-06-2023 Patient encounter procedure [facility] Work Phone: Start: 06-20-2023 End: 06-20-2023 ambulatory [facility] Work Phone: Start: 06-20-2023 End: 06-20-2023 Patient encounter procedure [facility] Work Phone: Start: 06-06-2023 End: 06-06-2023 ambulatory [...] Detail Author Start: 04-29-[address] [facility] Work Phone: Start: 02-01-[address] [facility] Work Phone: Start: 06-20-[address] [facility] Work Phone: Comprehensive metabo lic 2000 panel - Serum or Plasma [facility] DXA Skeletal system. axial Views for bone density [facility] Patient Education Low back pain in adults [facility] Work Phone: Patient referral [facility] Work Phone: US Heart Transthoracic [facility] US Kidney - bilateral [facility] Payers Date Payer Category Payer Self-pay 2023 Unknown 2017 Medicaid [id number] 1985 Unknown [id number] 2.16.84 [id number] 1985 Unknown [id number] 2.16.84 0.1.874120.3.579.2.593 1985 Unknown [id number] 2.16.84 0.1.000058.3.579.2.593 1986 Unknown [id number] 2.16.84 0.1.244569.3.579.2.593 1986 Unknown [id number] 2.16.84 0.1.807800.3.579.2.593 1986 Unknown [id number] 2.16.84 0.1.341631.3.579.2.1259 1986 Unknown [id number] 2.16.84 0.1.060962.3.579.2.1259 1986 Unknown [id number] 2.16.84 0.1.051513.3.579.2.1259 1986 Unknown [id number] 2.16.84 0.1.707123.3.579.2.1259 1986 Unknown [id number] 2.16.84 0.1.642905.3.579.2.1259 1986 Unknown [id number] 2.16.84 0.1.672788.3.579.2.1259 1986 Unknown [id number] 2.16.840 .1.886933.3.579.2.9 1986 Unknown [id number] 2.16.840 .1.591546.3.579.2.1259 1986 Unknown [id number] 2.16.840 .1.073861.3.579.2.9 1986 Unknown [id number] 2.16.840 .1.788078.3.579.2.9 1986 Unknown [id number] 2.16.840 .1.358533.3.579.2.9 1986 Unknown [id number] 2.16.8 40.1.291160.3.579.2.727 1985 Unknown [id number] 2.16. 840.1.451369.3.579.2.196 1985 Unknown [id number] 2.16. 840.1.386229.3.579.2.196 1986 Unknown [id number] 2.16. 840.1.590351.3.579.2.196 1985 Unknown [id number] 2.16. 840.1.020020.3.579.2.196 1959 Unknown [id number] Medicaid [facility] [id number] Unknown [id number] 2.16.8 40.1.532143.3.579.2.531 Social History Date Type Detail Facility [facility]: [facility] Start: 1985 Sex Assigned At Female [facility] Tobacco smoking status [facility] Start: 02-01-2024 End: 02-01-2024 Tobacco smoking status [facility] Ex-smoker (finding) [facility] Start: 04-29-2024 End: 05-13-2024 Sex Female (finding) [facility] Clinical Notes 04-07-2021 to 05-12-2024 Note Date & Type Note Facility 05-12-2024 Radiology Diagnostic study note [facility] [place] [address] Ultrasound Report Signed Patient: Yanci Loco MR#: [id number] : 1985 Acct:[id number] Age/Sex: 38 / F ADM Date: 5 Loc: Room: Type: [facility] Attending Dr: LUCRETIA Andino APRNC Ordering Provider: [...] ultrasound. Impression dictated by: Mike Whitney Jr., D.OPer05/12/2024 4:24 PM Dictation Location: [place] [address] Tech: Vernell Pack Transcribed By: TANA 05/12/24 162 Dictated By: Mike Whitney Jr, DO 05/12/24 1623 Signed By: 05/12/24 1624 [facility] 04-29-2024 Evaluation note Diagnosis Onset Date Resolution Family history of osteoporosis acute April 29 12:56pm History of hysterectomy acute J anuary 2024 12:56pm Kidney anomaly, congenital acute April 29 12:56pm Screening for osteoporosis acute April 29 12:56pm Sprain of right ankle acute Apr 12:56pm [facility] Work Phone: 1(324) 635-523911-01-2024 Evaluation note* Diagnosis Onset Date Resolution Status [...] 2024 12:56pm Sprain of right ankle acute Apr 12:56pm Wellness examination acute 2024 12:56pm [facility] Work Phone: 1(350) 496-636403-20-2024 Hospital Discharge instructionsAmbulatory Orders* Referral to Orthopedic Surgery Time Frame: 06/20/23, Location: None Selected [facility] Work Phone: 1(662) 896-287410-10-2022 NotePROCEDURE: XR ANKLE RT MIN 3 VIEWS HISTORY: Contusion of right ankle ; acute anterior right ankle pain since injury 16 days ago COMPARISON: XR ankle right 12/31/2021 FINDINGS: BONES:No fracture, acute abnormality, or significant arthropathy. SOFT TISSUES:No visible soft tissue swelling. EFFUSION:None visible. OTHER: Negative. IMPRESSION: 1. Normal examination. Electronically authenticated by: LIZANDRO DELACRUZ Date: 2022-01-09 16:12[facility] NotePROCEDURE: XR FEMUR LT COMPARISON: None. HISTORY: Unspecified fall FINDINGS: BONES:No fracture, acute abnormality, or significant arthropathy. SOFT TISSUES:Negative. No visible soft tissue swelling. EFFUSION:None visible. OTHER: Negative. IMPRESSION: No acute abnormality Electronically authenticated by: TEODORO WHITLEY Date: 2021-04-07 09:14[facility] No data available for this section [facility] Diagnosis Onset Date Resolution Status Anxiety acute Asthma acute Depression acute Irregular heart beat acute Maxillary sinusitis acute Scoliosis acute Trigger finger of right hand acute [facility] Work Phone: Evaluation note* Diagnosis Onset Date Resolution Status Anxiety acute Asthma acute Depression acute Irregular heart beat acute Maxillary sinusitis acute Scoliosis acute Trigger finger of right hand acute Congenital heart defect acut e Irregular heart beat acute Scoliosis acute [facility] Work Phone: Evaluation note* Diagnosis Onset Date Resolution Status Congenital heart defect acut e Deformity of right lower extremity acute Irregular heart beat acute Scoliosis acute Stress headaches acute Trigger finger of right hand acute Rash acute [facility] Work Phone: Evaluation note* Diagnosis Onset Date Resolution Status Anxiety acute Chronic lower back pain acut e Deformity of right lower extremity acute Depression acute GERD (gastroesophageal reflux disease) acute Stress headaches acute [facility] Work Phone: Hospital Discharge instructions No data available for this section [facility] instructionsAmbulatory Orders* Referral to Pain Management Time Frame: 02/01/24, Location: None [facility] Work Phone: Hospital Discharge instructionsAmbulatory Orders* Referral to Podiatry Time Frame: 04/29/24, Location: None [facility] Work Phone: Progress note No data available for this section [facility] Summary Purpose Family History No [...] :35am ER f/u right foot injury April 29 12:56pm Reason for Visit Admit Date Anxiety [...] foot injury April 29, 2 025 12:56pm Q63.9 May 12, 2024 1:46pm [...] DATE CREATED AUTHOR AUTHOR'S ORGANIZ ATION 06/07/2023 [facility] EPIC DATE CREATED AUTHOR AUTHOR'S ORGANIZ ATION 08/16/2023 [facility] DATE CREATED AUTHOR AUTHOR'S ORGANIZ ATION 05/19/2024 [facility] DATE CREATED AUTHOR AUTHOR'S ORGANIZ ATION 05/30/2024 [facility] Care Teams (unrecognized sec tion and content) Team Status: Active Member Role Status Dates Penelope Garcia APRN WEB CONTENT SPECIALIST-C Primary Care Provider Active Team Status: Inactive Member Role Status Dates Penelope Garcia APRN WEB CONTENT SPECIALIST-C Primary Care Provider, Attending Provider Active Start: June 20, 2023 End: June 20, 2023 Team Status: Inactive Member Role Status Dates Penelope Garcia APRN WEB CONTENT SPECIALIST-C Primary Care Provider, Attending Provider Active Start: August 06, 2023 End: August 06, 2023 Team Status: Inactive Member Role Status Dates Penelope Garcia APRN WEB CONTENT SPECIALIST-C Primary Care Provider, Attending Provider Active Start: September 27, 2023 End: September 27, 2023 Team Status: Inactive Member Role Status Dates Penelope Garcia APRN WEB CONTENT SPECIALIST-C Primary Care Provider, Attending Provider Active Start: February 01, 2024 End: February 01, 2024 Team Status: Active Member Role Status Dates Penelope Garcia APRN WEB CONTENT SPECIALIST-C Primary Care Provider Active Start: April Khadijah Corbin CMA Attending Provider Active Start: April 22, 2024 Team Status: Inactive Member Role Status Dates Penelope Garcia APRN WE[employer] CONTENT SPECIALIST-C Primary Care Provider, Attending Provider Active Start: April 29, 2024 End: April 29, 2024 Team Status: Active Member Role Status Dates Penelope Garcia APRN WEB CONTENT SPECIALIST-C Primary Care Provider, Attending Provider Active Start: April 30, 2024 Team Status: Inactive Member Role Status Dates Penelope Garcia APRN WEB CONTENT SPECIALIST-C Primary Care Provider, Attending Provider Active Start: [...] PRIMARY CLINICAL RECORDS. [facility]. provides no warranty or guarantee of the accuracy or completeness of information in this document.
--- NOTE | 2024-06-04 09:36 | PM.CN ---
Consult Note: HPI Data of Consult Patient: known to practice within the last 3 years Requesting Physician: Anna Stroud NP Primary Care Provider: KARIN MALONE Family Provider: CASH DANIEL Consult Narrative Reason for consult: f/u Narrative: Yanci Loco a 38 year old female presents for evaluation and management of chronic neck pain. pt has failed heat, ice, tylenol, NSAIDs, and 6 weeks of PT/HEP. Recent cervical MRI shows spondylosis as well as stenosis. Patient underwent bilateral C5/6 TFESI with >90% improvement per pt. Pain in low back and BLE 4/10 increasing to 8/10 with standing, walking, lifting, pushing, pulling, bending, and sleep. denies falls/injury. previous lumbar MRI shows bulging disc at L4-5 and L5-S1 as well as lumbar spondylosis. pt recently underwent bilateral L4-5 TFESI with no improvement. cc:: CC: Anna Stroud NP Review of Systems ROS Status of ROS 10 or more systems reviewed and unremarkable except as noted in history and below Musculoskeletal Reports: back pain, neck pain and extremity pain PFSH PFSH Medical History Osteoarthritis ?M19.90 - Unspecified osteoarthritis, unspecified site (ICD-10) Carpal tunnel syndrome ?G56.00 - Carpal tunnel syndrome, unspecified upper limb (ICD-10) Acid reflux ?K21.9 - Gastro-esophageal reflux disease without esophagitis (ICD-10) Asthma ?J45.909 - Unspecified asthma, uncomplicated (ICD-10) Heart murmur ?R01.1 - Cardiac murmur, unspecified (ICD-10) Irregular heartbeat ?I49.9 - Cardiac arrhythmia, unspecified (ICD-10) Surgical History History of carpal tunnel release ?Z98.890 - Other specified postprocedural states (ICD-10) History of hysterectomy ?Z90.710 - Acquired absence of both cervix and uterus (ICD-10) History of tubal ligation ?Z98.51 - Tubal ligation status (ICD-10) History of surgery on arm ?Z98.890 - Other specified postprocedural states (ICD-10) Social History Smoking status: Former smoker Little interest or pleasure in doing things: not at all Feeling down, depressed, or hopeless: not at all Meds Home Medications and Allergies Home Medications ?Medication ?Instructions ?Recorded ?Confirmed ?Type albuterol sulfate 90 mcg/actuation 2 puff inhalation Q6H PRN wheezing 11/15/22 05/26/24 History aerosol inhaler ciclopirox 0.77 % topical cream 1 applic topical Q12H 11/15/22 05/26/24 History diclofenac sodium 1 % topical gel 2 g topical QID 11/15/22 05/26/24 History ciclopirox 1 % shampoo 5 ml topical QWEEK 04/16/23 05/26/24 History epinephrine 0.3 mg/0.3 mL 0.3 mg (0.3 mL) IM ONCE PRN 10/01/23 05/26/24 Rx injection, auto-injector allergic reaction #2 ea famotidine 20 mg tablet (Pepcid) 20 mg PO BID #10 tabs 10/01/23 05/26/24 Rx tizanidine 4 mg capsule (Zanaflex) 2 mg (1/2 x 4 mg) PO Q8H PRN 12/24/23 05/26/24 Rx muscle spasticity #10 caps aripiprazole 2 mg tablet 2 mg PO DAILY 02/11/24 05/26/24 History naproxen 250 mg tablet 250 mg PO Q12H PRN pain #14 tabs 04/21/24 05/26/24 Rx Allergies Allergy/AdvReac Type Severity Reaction Status Date / Time Penicillins Allergy Severe Rash Verified 05/26/24 09:31 tramadol Allergy Severe Swelling Verified 05/26/24 09:31 of Lip/Tongue/Throat bees AdvReac Mild sob Uncoded 04/28/24 07:40 Exam Constitutional Documenting provider has reviewed patient's vital signs: yes Common normals: no apparent distress, oriented x3, healthy appearing, alert and well nourished General appearance: cooperative HENOR Common normals: normocephalic, hearing grossly normal bilaterally and moist oral mucous membranes Head and scalp: normocephalic Eye Common normals: PERRL Pupil: PERRL Neck & C-Spine Common normals: full ROM General: normal visual inspection Cervical spine: no pain with cervical ROM and no cervical spine tenderness Other: negative spurlings strength 5/5 in BUE Chest Common normals: inspection of chest normal Respiratory Common normals: normal respiratory effort, no retractions and no use of accessory muscles Back & Pelvis Lumbar spine/lower back: ROM limited, pain with ROM, lumbar spinal tenderness, paraspinal muscle tenderness and straight leg raise negative bilaterally Other: strength 5/5 in BLE sensation intact BLE positive facet loading and tenderness L3-S1 Neuro Common normals: oriented x3, CN's II-XII intact bilaterally, moves all extremities, no focal motor deficits, no sensory deficits noted and deep tendon reflexes 2+ bilaterally Sensorium/orientation: alert Motor exam: strength 5/5 throughout and no movement abnormalities noted Psych Common normals: mental status grossly normal, thought process normal, cooperative, affect normal, speech normal and activity/motor behavior normal Speech: normal speech Thought process: normal thought process Results Additional Findings Additional findings: If on a controlled substance or opioids, I have checked an [place] report on this patient and there are no aberrancies noted in the prescribing history.??If on a controlled substance or opioid a drug screen was completed and reviewed within the last year, and if there has not been a drug screen completed we ordered one today to monitor higher risk, state monitored pain medication use. As part of providing excellent, safe, comprehensive care, the following was completed at our patient's visit: 1. A medication reconciliation and review to ensure accurate knowledge of current/active medications, including asking our patients to inform us about any szol-voc-xtctang medications or herbal remedies/nutritional supplements/alternative remedies. 2. A review to specifically ensure our patients have had annual screening for screening for depression, screening for tobacco use, and screening for unhealthy alcohol use. For concerning screenings had a discussion with the patient, provided patient education, and recommended follow-up with primary care provider when appropriate. If patient noted with a risk of falling, they received education on strength, gait, and balance training to prevent future risk of falling. Portions of this note may have been carried over from the previous visit and updated as appropriate. Please note this office utilizes paper charting in addition to the electronic medical record. A list of current medications, vitals, and PMH is available there as the clinical staff outside of myself do not have access to [employer] charting during the clinic day operations. As part of providing quality comprehensive care the current medications, vitals, and PMH were reviewed in the paper chart. Assessment and Plan Assessment and Plan (1) Lumbar spondylosis: Assessment and Plan: The patient has had over 3 months of moderate to severe low back pain with functional impairment and inadequate response to conservative care including NSAIDS (unless there are contraindication such as concurrent blood thinners), multiple oral or topical pain medications, and home exercise program/physical therapy.? Patient has completed >6 weeks of guided home exercise program and/or formal physical therapy program without relief of their symptoms.? I have reviewed the imaging of the lumbar spine and no red flags were identified.? The imaging reveals radiographic findings consistent with lumbar spondylosis The Oswestry Disability Index was completed, and the patient scored a 40%.? The patient noted the following:?? moderate to severe pain, pain with standing, walking, ADLs, sleep, impacting social life and travel We discussed the risks and benefits of the procedure with the patient, and we are NOT planning on using sedation as outlined in the guidelines from Medicare unless there is a documented reason that sedation would be strongly recommended.?? ?The procedure will be completed with fluoroscopic guidance.? (2) Lumbar stenosis with neurogenic claudication: Plan although pt reports no improvement from bilateral L4-5 TFESI symptoms have improved on exam, no showing facet mediated pain. no signs of radiculopathy or myelopathy on exam. proceed with bilateral L4-5 L5-S1 facet medial branch block x2 working towards RFA. continue HEP as tolerated, continue current medications heat and ice. f/u after each injection
== END 2024-06-04 09:01 | disposition home or self-care (01) ==
LOC: PM 09:01
PROVIDERS: Family Provider Physician Assistant; PCP Nurse Practitioner Family; Visit Provider Nurse Practitioner
DX: M47.816 Spondylosis without myelopathy or radiculopathy, lumbar region (principal); M48.062 Spinal stenosis, lumbar region with neurogenic claudication
CPT/HCPCS: G0463

== ENCOUNTER 2024-06-23 09:47 | Day surgery (SDC) | payer OTHER, SELFPAY ==
--- OUTSIDE RECORDS SUMMARY | 2024-06-23 10:02 | XMS_ITS | CCD ---
Author Organization [facility] Inform ion [facility] Care Team Providers Care Needle Loom Tender Name Role Phone KOLBY KIRK Admitting Unavailable [...] Attending Unavailable ANJELICA MARTINS Primary Care Physician [phone] PENELOPE GARCIA Attending Unavailab le PENELOPE GARCIA Admitting Unavailab le Penelope Garcia APRN Primary Care Provider Penelope Garcia APRN Attending Provider [phone] Penelope Garcia Attending Unavailable Penelope Garcia Primary Care Unavailable Penelope Garcia Admitting Unavailable Giedraitis , Andri Vanabel Attending Unavailable Giedraitis MD, Andrius Vytautas Attending Unavailable Giedraitis MD, Andrius Vytautas Attending Unavailable Giedraitis MD, Andrius Vytautas Attending Unavailable Allergies Allergy Classification Reported Allergen(s) Allergy Type Date of Onset Reaction(s) Facility (1 source) cefdinir Drug Allergy 5 [facility] Repository (7 sources) Penicillins Drug allergy (disorder) 3 Hives [facility] Repository (7 sources) predniSONE Drug Allergy 2 Heartburn [facility] Repository (1 source) traMADol Drug Allergy 3 [facility] Repository (1 source) Pertussis Immune Globulin Drug allergy (disorder) 3 [facility] Repository (9 sources) spinach allergenic extract; Translations: [Spinach (substance)] Drug Allergy 4 Airway constriction (finding) [facility] (7 sources) bee venom protein (honey bee); Translations: [bee venom protein (honey bee)] Allergy to substance [address] [facility] (7 sources) diphtheria,pert ussis (acellular),te; Translations: [diphtheria,per tussis (acellular),te] Allergy to substance [address] [facility] (2 sources) Bee/Wasp/Ant venom; Translations: [Bee Stings] Drug allergy [facility] (2 sources) Penicillin; Translations: [penicillin] Drug Allergy [facility] (2 sources) Pertussis Vaccine; Translations: [Whooping-cough vaccine] Drug Allergy Airway constriction (finding) [facility] (2 sources) Sodium Bicarbonate; Translations: [Baking soda] Drug Allergy Red color (finding) [facility] (1 source) Penicillins Drug allergy (disorder) [address] [place] [address] Repository (1 source) predniSONE Drug Allergy [address] [place] [address] Repository Medications Current Medications Medication Drug Class(es) [...] MG PO Daily February 01, 2024 8:44am [id number] 0.3 ml EPINEPHrine 1 mg/ml auto-injector (6 [...] US renal RTon 05-12-2024 US renal RT [place] [address] Ultrasound Report Signed Patient: Yanci Loco MR#: [id number] : 1985 Acct:[id number] Age/Sex: 38 / F ADM Date: 05/12/24 Loc: UL Room: Type: [facility] Attending Dr: Penelope Garcia APRN, ROLL UP OPERATOR-C Ordering Provider: Penelope Garcia APRN, PROCESS DESIGN CHEMICAL ENGINEER Date of Service: 05/12/24 US/US renal RT: 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 Basophils/100 WBC Auto (Bld) on 04-30-2024 Basophils/100 WBC (Bld) Automated basophil % 0.2-2.[address] [facility] Cholesterol in LDL Calc [Mas s/Vol]on 04-30-2024 Cholesterol in LDL [Mass/Vol] Cholesterol in LDL [Mass/volume] in Serum or Plasma by calculation [facility] Comment on above: <100 mg/dl [id number] 0-129 mg/dl NEAR OR ABOVE [id number] mg/dl BORDERLINE [id number] mg/dl HIGH>190 mg/dl VERY HIGH Cholesterol in VLDL Calc [Ma ss/Vol]on 04-30-2024 Cholesterol in VLDL [Mass/Vol] Cholesterol in VLDL [Mass/volume] in Serum or Plasma by calculation [facility] Eosinophils/100 WBC Auto (Bl d)on 04-30-2024 Eosinophils/100 WBC (Bld) Automated eosinophil % 0.9-7.[address] [facility] Erythrocyte distribution wid th Auto (RBC) [Ratio]on 04-30-2024 Erythrocyte distribution width (RBC) [Ratio] Erythrocyte distribution width [Ratio] by Automated count 11.0-15.[address] [facility] Estimated glomerular filtrat ion rate (GFR) non- Americanon 04-30-2024 GFR/1.73 sq M.predicted among non-blacks MDRD (S/P/Bld) [Vol rate/Area] Estimated glomerular filtration rate (GFR) non- >=60 mL/min/1.73m [address] [facility] Globulin Calc (S) [Mass/Vol] on 04-30-2024 Globulin (S) [Mass/Vol] Serum globulin measurement by calculation (mass/volume) [facility] Hematocrit Auto (Bld) [Volum e fraction]on 04-30-2024 Hematocrit (Bld) [Volume fraction] Hematocrit [Volume Fraction] of Blood by Automated count 36.0-48.[address] [facility] Hemoglobin [Mass/volume] in Bloodon 04-30-2024 Hemoglobin (Bld) [Mass/Vol] Hemoglobin [Mass/volume] in Blood 12.0-16.[address] [facility] Laboratory - Chemistry and C hemistry - challengeon 04-30-2024 Albumin [Mass/Vol] 3.6 g/dL 3.4-5.0 [facility] ALP [Catalytic activity/Vol] 70 U/L 46-[address] [facility] ALT [Catalytic activity/Vol] 28 U/L 14-[address] [facility] AST [Catalytic activity/Vol] 17 U/L 15-[address] [facility] Bilirubin [Mass/Vol] 0.3 mg/dL 0.2-1.0 [facility] Calcium [Mass/Vol] 8.6 mg/dL 8.5-10.1 [facility] Chloride [Moles/Vol] 104 mmol/L 98-107 [facility] Cholesterol [Mass/Vol] 227 mg/dL High <=[address] [facility] Cholesterol in HDL [Mass/Vol] 59 mg/dL 40-[address] [facility] Comment on above: > or =60 mg/dl - LOW CARDIOVASCULAR RISK<40 mg/dl - HIGH CARDIOVASCULAR RISK CO2 [Moles/Vol] 26.5 mmol/L 21.0-32.0 [facility] Creatinine [Mass/Vol] 1.02 mg/dL 0.55-1.02 [facility] GFR/1.73 sq M.predicted MDRD (S/P/Bld) [Vol rate/Area] mL/min/{1.73_m2} >=60 mL/min/1.73m [address] [facility] Glucose [Mass/Vol] 86 mg/dL 74-106 [facility] Potassium [Moles/Vol] 3.6 mmol/L 3.5-5.1 [facility] Protein [Mass/Vol] 7.4 g/dL 6.4-8.2 [facility] Sodium [Moles/Vol] 140 mmol/L 136-145 [facility] Triglyceride [Mass/Vol] 165 mg/dL High <=[address] [facility] Urea nitrogen [Mass/Vol] 16.0 mg/dL 7.0-18.[address] [facility] Urea nitrogen/Creatinine [Mass ratio] 15.7 mg/mg [facility] Laboratory - Hematology and Cell countson 04-30-2024 Immature granulocytes/100 WBC (Bld) 0.1 % 0.0-0.[address] [facility] Leukocytes [#/volume] correc souleymane for nucleated erythrocytes in Blood by Automated counon 04-30-2024 WBC corrected for nucl RBC Auto (Bld) [#/Vol] Leukocytes [#/volume] corrected for nucleated erythrocytes in Blood by Automated coun 4.0-11.[address] [facility] Lymphocytes Auto (Bld) [#/Vo l]on 04-30-2024 Lymphocytes (Bld) [#/Vol] Lymphocytes [#/volume] in Blood by Automated count 1.2-3.[address] [facility] Lymphocytes/100 WBC Auto (Bl d)on 04-30-2024 Lymphocytes/100 WBC (Bld) Lymphocytes/100 leukocytes in Blood by Automated count 20.5-60.[address] [facility] MCH Auto (RBC) [Entitic mass ]on 04-30-2024 MCH (RBC) [Entitic mass] MCH [Entitic mass] by Automated count 26.7-34.[address] [facility] MCHC Auto (RBC) [Mass/Vol]on 04-30-2024 MCHC (RBC) [Mass/Vol] MCHC [Mass/volume] by Automated count 29.9-35.[address] [facility] MCV Auto (RBC) [Entitic vol] on 04-30-2024 MCV (RBC) [Entitic vol] MCV [Entitic volume] by Automated count 81.0-99.[address] [facility] Monocytes Auto (Bld) [#/Vol] on 04-30-2024 Monocytes (Bld) [#/Vol] Automated blood monocyte count 0.3-0.[address] [facility] Monocytes/100 WBC Auto (Bld) on 04-30-2024 Monocytes/100 WBC (Bld) Automated monocyte % 1.7-12.[address] [facility] Neutrophils Auto (Bld) [#/Vo l]on 04-30-2024 Neutrophils (Bld) [#/Vol] Neutrophils [#/volume] in Blood by Automated count 1.4-6.[address] [facility] Neutrophils/100 WBC Auto (Bl d)on 04-30-2024 Neutrophils/100 WBC (Bld) Automated neutrophil % 43.0-75.[address] [facility] No Panel Informationon 04-30 Eosinophils # (Auto) 0.1 10 3/uL 0.0-0.7 [facility] Immature Granulocyte # (Auto) 0.01 10 3/uL 0.00-0.[address] [facility] Platelet mean volume Auto (B ld) [Entitic vol]on 04-30-2024 Platelet mean volume (Bld) [Entitic vol] Platelet mean volume [Entitic volume] in Blood by Automated count 9.5-13.[address] [facility] Platelets Auto (Bld) [#/Vol] on 04-30-2024 Platelets (Bld) [#/Vol] Platelets [#/volume] in Blood by Automated count 150-[address] [facility] RBC Auto (Bld) [#/Vol]on RBC (Bld) [#/Vol] Erythrocytes [#/volume] in Blood by Automated count 4.20-5.[address] [facility] Serum or plasma albumin/glob ulin mass ratioon 04-30-2024 Albumin/Globulin [Mass ratio] Serum or plasma albumin/globulin mass ratio [facility] Serum or plasma anion gap de terminationon 04-30-2024 Anion gap [Moles/Vol] Serum or plasma an ion gap determination [facility] Serum or plasma total choles terol/high density lipoprotein (HDL) cholesterol mass lucie 04-30-2024 Cholesterol.total/Cho lesterol in HDL [Mass ratio] Serum or plasma total cholesterol/high density lipoprotein (HDL) cholesterol mass rat [facility] Comment on above: 3.3 - 4.4 [...] in mGy = na DAP = na [facility] Consent for Treatmenton 07-31 Consent for Treatment [id number] [facility] Physician Orderon 08-14-2023 Physician Order [id number]# 1.00TIFF [facility] XR ANKLE RT MIN 3 VIEWSon [...] by: Santy RO Date: 2021-12-31 22:[address] [facility] [address] [facility] [facility] W CONon 2 [...] by: LIZANDRO DELACRUZ Date: 2021-09-13 17:01 [facility] XR HIP LT 2 3V W [...] by: SANNA HOOD Date: 2021-04-18 11:23 [facility] Vital Signs Date Time Vital Sign Value Performing Clinician Faci lity 04-29-2024 12:59-0500 Body height 165.1 cm [facility] 04-29-2024 12:59-0500 Body temperature 98.4 [degF] [facility] 04-29-2024 12:59-0500 Diastolic blood pressure 72 mm[Hg] [facility] 04-29-2024 12:59-0500 Heart rate 80 /min [facility] 04-29-2024 12:59-0500 SaO2% (BldA) [Mass fraction] 99 % [facility] 04-29-2024 12:59-0500 Systolic blood pressure 116 mm[Hg] [facility] 02-01-2024 09:28-0400 Body height 165.1 cm [facility] 02-01-2024 09:28-0400 Body mass index (BMI) [Ratio] 30.9 kg/m2 [facility] 02-01-2024 09:28-0400 Body temperature 96.8 [degF] [facility] 02-01-2024 09:280400 Body weight 84.48 kg [facility] 02-01-2024 09:28-0400 Diastolic blood pressure 76 mm[Hg] [facility] 02-01-2024 09:28-0400 Heart rate 70 /min [facility] 02-01-2024 09:28-0400 SaO2% (BldA) [Mass fraction] 98 % [facility] 02-01-2024 09:28-0400 Systolic blood pressure 124 mm[Hg] [facility] 09-27-2023 13:58-0400 Body height 165.1 cm [facility] 09-27-2023 13:58-0400 Body mass index (BMI) [Ratio] 30.4 kg/m2 [facility] 09-27-2023 13:58-0400 Body weight 83.06 kg [facility] 09-27-2023 13:58-0400 Diastolic blood pressure 76 mm[Hg] [facility] 09-27-2023 13:58-0400 Heart rate 70 /min [facility] 09-27-2023 13:58-0400 Respiratory rate 12 /min [facility] 09-27-2023 13:58-0400 Systolic blood pressure 122 mm[Hg] [facility] 08-06-2023 15:26-0400 Body height 165.1 cm [facility] 08-06-2023 15:26-0400 Body mass index (BMI) [Ratio] 29.7 kg/m2 [facility] 08-06-2023 15:26-0400 Body temperature 97.5 [degF] [facility] 08-06-2023 15:26-0400 Body weight 81.19 kg [facility] 08-06-2023 15:26-0400 Diastolic blood pressure 74 mm[Hg] [facility] 08-06-2023 15:26-0400 Heart rate 71 /min [facility] 08-06-2023 15:26-0400 Respiratory rate 18 /min [facility] 08-06-2023 15:26-0400 SaO2% (BldA) [Mass fraction] 98 % [facility] 08-06-2023 15:26-0400 Systolic blood pressure 110 mm[Hg] [facility] 06-20-2023 14:49-0400 Body height 165.1 cm [facility] 06-20-2023 14:49-0400 Body mass index (BMI) [Ratio] 29.7 kg/m2 [facility] 06-20-2023 14:49-0400 Body weight 81.19 kg [facility] 06-20-2023 14:49-0400 Diastolic blood pressure 80 mm[Hg] [facility] 06-20-2023 14:49-0400 Heart rate 78 /min [facility] 06-20-2023 14:49-0400 SaO2% (BldA) [Mass fraction] 98 % [facility] 06-20-2023 14:49-0400 Systolic blood pressure 116 mm[Hg] [facility] Encounters Encounter Date Encounter Type Care Provider Facility Start: 05-26-2024 End: 05-26-2024 ambulatory Katie Lipscomb MD Facility:[facility] Start: 05-12-2024 End: 05-12-2024 Patient encounter procedure Penelope Garcia APRN Work Phone: [facility] [place] Work Phone: Start: 05-12-2024 End: 05-12-2024 ambulatory Penelope Garcia APRN Work Phone: [facility] Work Phone: Start: 04-30-2024 Non-patient / Non-visit Ruthie Garcia APRN Work Phone: [facility] Work Phone: Start: 04-29-2024 Patient encounter status [facility] Start: 04-29-2024 End: 04-29-2024 ambulatory [facility] Work Phone: Start: 04-29-2024 End: 04-29-2024 Encounter for general adult medical examination without abnormal findings [facility] Start: 04-29-2024 End: 04-29-2024 Patient encounter procedure [facility] Work Phone: Start: 04-28-2024 End: 04-28-2024 ambulatory Katie Lipscomb MD Facility:[facility] Start: 04-22-2024 Non-patient / Non-visit [facility] Work Phone: Start: 03-10-2024 End: 03-10-2024 ambulatory Katie Lipscomb MD Facility:[facility] Start: 02-11-2024 End: 02-11-2024 ambulatory Katie Lipscomb MD Facility:[facility] Start: 02-01-2024 End: 02-01-2024 ambulatory [facility] Work Phone: Start: 02-01-2024 End: 02-01-2024 Patient encounter procedure [facility] Work Phone: Start: 09-27-2023 End: 09-27-2023 ambulatory [facility] Work Phone: Start: 09-27-2023 End: 09-27-2023 Patient encounter procedure [facility] Work Phone: Start: 08-14-2023 End: 08-15-2023 ambulatory PENELOPE GARCIA Facility:[facility] Start: 08-14-2023 End: 08-14-2023 Patient encounter procedure PENELOPE GARCIA [facility] Start: 08-06-2023 End: 08-06-2023 ambulatory [facility] Work Phone: Start: 08-06-2023 End: 08-06-2023 Patient encounter procedure [facility] Work Phone: Start: 06-20-2023 End: 06-20-2023 ambulatory [facility] Work Phone: Start: 06-20-2023 End: 06-20-2023 Patient encounter procedure [facility] Work Phone: Start: 06-06-2023 End: 06-06-2023 ambulatory CASH DANIEL Not Available Start: 05-23-2023 End: 05-23-2023 ambulatory CASH DANIEL Not Available Start: 04-16-2023 End: 04-17-2023 ambulatory SHONDA PORTER Not Available Start: 04-13-2023 End: 04-13-2023 ambulatory SHANEL STARK Not Available Start: 04-11-2023 End: 04-11-2023 ambulatory VERNELL SMALLWOOD Not Available Start: 04-06-2023 End: 04-07-2023 ambulatory VERNELL SMALLWOOD Not Available Start: 04-04-2023 End: 04-04-2023 ambulatory TAHSI BANKS Not Available Start: 03-30-2023 End: 03-30-2023 [...] Activity Detail Author Start: 04-29-2024 Patient referral [facility] Work Phone: Start: 02-01-2024 Patient referral [facility] Work Phone: Start: 06-20-2023 Patient referral [facility] Work Phone: Comprehensive metabo lic 2000 panel - Serum or Plasma [facility] DXA Skeletal system. axial Views for bone density [facility] Patient Education Low back pain in adults [facility] Work Phone: Patient referral [facility] Work Phone: US Heart Transthoracic [facility] US Kidney - bilateral [facility] Payers Date Payer Category Payer Self-pay 2023 Unknown 2017 Medicaid [id number] 1985 Unknown [id number] 2.16.84 0.1.188858.3.579.2.593 1985 Unknown [id number] 2.16.84 0.1.586037.3.579.2.593 1985 Unknown [id number] 2.16.84 0.1.066648.3.579.2.593 1985 Unknown [id number] 2.16.84 0.1.061377.3.579.2.593 1985 Unknown [id number] 2.16.84 0.1.099046.3.579.2.593 1986 Unknown [id number] 2.16.84 0.1.896838.3.579.2.1259 1986 Unknown [id number] 2.16.84 0.1.790426.3.579.2.1259 1986 Unknown [id number] 2.16.84 0.1.068252.3.579.2.1259 1986 Unknown [id number] 2.16.84 0.1.780234.3.579.2.1259 1986 Unknown [id number] 2.16.84 0.1.364681.3.579.2.1259 1985 Unknown [id number] 2.16.84 0.1.864172.3.579.2.1259 1985 Unknown [id number] 2.16.840 .1.141680.3.579.2.9 1986 Unknown [id number] 2.16.840 .1.143751.3.579.2.1259 1986 Unknown [id number] 2.16.840 .1.649792.3.579.2.9 1986 Unknown [id number] 2.16.840 .1.298760.3.579.2.9 1985 Unknown [id number] 2.16.840 .1.042539.3.579.2.9 1986 Unknown [id number] 2.16.8 40.1.504859.3.579.2.727 1986 Unknown [id number] 2.16. 840.1.017806.3.579.2.196 1986 Unknown [id number] 2.16. 840.1.849140.3.579.2.196 1986 Unknown [id number] 2.16. 840.1.173884.3.579.2.196 1986 Unknown [id number] 2.16. 840.1.736781.3.579.2.196 1959 Unknown [id number] Medicaid [facility] [id number] Unknown [id number] 2.16.8 40.1.762002.3.579.2.531 Social History Date Type Detail Facility Start: [facility] Start: 1985 Sex Assigned At Female F [facility] Tobacco smoking status [facility] Start: 02-01-2024 End: 02-01-2024 Tobacco smoking status [facility] Ex-smoker (finding) [facility] Start: 04-29-2024 End: 05-13-2024 Sex Female (finding) [facility] Clinical Notes 04-07-2021 to 05-12-2024 Note Date & Type Note Facility 05-12-2024 Radiology Diagnostic study note [facility] [address] Ultrasound Report Signed Patient: Yanci Loco MR#: [id number] : 1985 Acct:[id number] Age/Sex: 38 / F ADM Date: 5 Loc: Room: Type: [facility] Attending Dr: LUCRETIA Andino APRNC Ordering Provider: [...] Whitney Jr., D.OPer05/12/2024 4:24 PM Dictation Location: [place] [address] Tech: Vernell Pack Transcribed By: TANA 05/12/24 162 Dictated By: Mike Whitney Jr, DO 05/12/24 1623 Signed By: 05/12/[address] [facility] 04-29-2024 Evaluation note Diagnosis Onset Date Resolution Family history of osteoporosis acute April 29 12:56pm History of hysterectomy acute J anuary 2024 12:56pm Kidney anomaly, congenital acute April 29 12:56pm Screening for osteoporosis acute April 29 12:56pm Sprain of right ankle acute Apr 12:56pm [facility] Work Phone: 1(199) 825-580611-01-2024 Evaluation note* Diagnosis Onset Date Resolution Status [...] Apr 12:56pm Wellness examination acute 2024 12:56pm [facility] Work Phone: 1(392) 771-793003-20-2024 Hospital Discharge instructionsAmbulatory Orders* Referral to Orthopedic Surgery Time Frame: 06/20/23, Location: None Selected [facility] Work Phone: 1(991) 623-781810-10-2022 NotePROCEDURE: XR ANKLE RT MIN 3 VIEWS HISTORY: Contusion of right ankle ; acute anterior right ankle pain since injury 16 days ago COMPARISON: XR ankle right 12/31/2021 FINDINGS: BONES:No fracture, acute abnormality, or significant arthropathy. SOFT TISSUES:No visible soft tissue swelling. EFFUSION:None visible. OTHER: Negative. IMPRESSION: 1. Normal examination. Electronically authenticated by: LIZANDRO DELACRUZ Date: 2022-01-09 16:12[facility] NotePROCEDURE: XR FEMUR LT COMPARISON: None. HISTORY: Unspecified fall FINDINGS: BONES:No fracture, acute abnormality, or significant arthropathy. SOFT TISSUES:Negative. No visible soft tissue swelling. EFFUSION:None visible. OTHER: Negative. IMPRESSION: No acute abnormality Electronically authenticated by: TEODORO WHITLEY Date: 2021-04-07 09:[facility] No data available for this section [facility] Diagnosis Onset Date Resolution Status Anxiety acute Asthma acute Depression acute Irregular heart beat acute Maxillary sinusitis acute Scoliosis acute Trigger finger of right hand acute [facility] Work Phone: Evaluation note* Diagnosis Onset Date Resolution Status Anxiety acute Asthma acute Depression acute Irregular heart beat acute Maxillary sinusitis acute Scoliosis acute Trigger finger of right hand acute Congenital heart defect acut e Irregular heart beat acute Scoliosis acute [facility] Work Phone: Evaluation note* Diagnosis Onset Date Resolution Status Congenital heart defect acut e Deformity of right lower extremity acute Irregular heart beat acute Scoliosis acute Stress headaches acute Trigger finger of right hand acute Rash acute [facility] Work Phone: Evaluation note* Diagnosis Onset Date Resolution Status Anxiety acute Chronic lower back pain acut e Deformity of right lower extremity acute Depression acute GERD (gastroesophageal reflux disease) acute Stress headaches acute [facility] Work Phone: Hospital Discharge instructions No data available for this section [facility] instructions[facility] Orders* Referral to Pain Management Time Frame: 02/01/24, Location: None [facility] Work Phone: Hospital Discharge instructionsAmbulatory Orders* Referral to Podiatry Time Frame: 04/29/24, Location: None [facility] Work Phone: Progress note No data available for this section [facility] Summary Purpose Family History No Family History [...] and content) DATE CREATED AUTHOR 01/10/2022 [facility] DATE CREATED AUTHOR AUTHOR'S ORGANIZ ATION 06/07/2023 [facility] Special[facility] EPIC DATE CREATED AUTHOR AUTHOR'S ORGANIZ ATION 08/16/2023 [facility] DATE CREATED AUTHOR AUTHOR'S ORGANIZ ATION 05/19/2024 [facility] DATE CREATED AUTHOR AUTHOR'S ORGANIZ ATION 05/30/2024 [facility] Care Teams (unrecognized sec tion and content) Team Status: Active Member Role Status Dates Penelope Garcia APRN ROLL UP OPERATOR-C Primary Care Provider Active Team Status: Inactive Member Role Status Dates Penelope Garcia APRN ROLL UP OPERATOR-C Primary Care Provider, Attending Provider Active Start: June 20, 2023 End: June 20, 2023 Team Status: Inactive Member Role Status Dates Penelope Garcia APRN ROLL UP OPERATOR-C Primary Care Provider, Attending Provider Active Start: August 06, 2023 End: August 06, 2023 Team Status: Inactive Member Role Status Dates Penelope Garcia APRN ROLL UP OPERATOR-C Primary Care Provider, Attending Provider Active Start: September 27, 2023 End: September 27, 2023 Team Status: Inactive Member Role Status Dates Penelope Garcia APRN ROLL UP OPERATOR-C Primary Care Provider, Attending Provider Active Start: February 01, 2024 End: February 01, 2024 Team Status: Active Member Role Status Dates Penelope Garcia APRN ROLL UP OPERATOR-C Primary Care Provider Active Start: April Khadijah Corbin CMA Attending Provider Active Start: April 22, 2024 Team Status: Inactive Member Role Status Dates Penelope Garcia APRN ROLL UP OPERATOR-C Primary Care Provider, Attending Provider Active Start: April 29, 2024 End: April 29, 2024 Team Status: Active Member Role Status Dates Penelope Garcia APRN ROLL UP OPERATOR-C Primary Care Provider, Attending Provider Active Start: April 30, 2024 Team Status: Inactive Member Role Status Dates Penelope Garcia APRN ROLL UP OPERATOR-C Primary Care Provider, Attending Provider Active Start: [...] BE BASED ON THE PRIMARY CLINICAL RECORDS. [facility] [employer] [facility]. provides no warranty or guarantee of the accuracy or completeness of information in this document.
[2024-06-23 10:10] VITALS: BP 134/92; PULSE 85; TEMP 36.8; O2SAT 97
[2024-06-23 10:53] VITALS: BP 154/90; PULSE 78; O2SAT 99
[2024-06-23 10:54] VITALS: BP 161/81; PULSE 76; O2SAT 100
[2024-06-23] MEDS: BUPIVACAINE HCL 0.25% PF 25 MG/10 ML VIAL 8 ML INJ (10:56)
[2024-06-23] MEDS: LIDOCAINE HCL 2% 400 MG/20 ML MDV INJ (10:57)
--- NOTE | 2024-06-23 10:58 | W.PM.PROCNOT ---
Date of procedure: 06/23/24 Pre-op diagnosis: Pain due to lumbar spondylosis without myelopathy Post-op diagnosis: same as pre-op Procedure: Procedure: Bilateral L4-5, l5-S1 medial branch block Medications: Bupivacaine 0.25% 6cc The patient was seen and examined in the preoperative holding area.? An informed consent was obtained and placed on the chart.? The patient was brought to the medical procedure unit and placed in the prone position.? A timeout was completed verifying correct patient, procedure site, positioning, plan, and special equipment.? Using aseptic technique, the needle was placed at left L4. Under direct fluoroscopic visualization a Quincke-tipped spinal needle was advanced to the junction of the superior articulating process with the transverse process at the designated medial branch segment.? Preceded by negative aspiration, the above-mentioned injectate was placed in 1 mL aliquots.? The procedure was repeated at left L5, S1.? The needle was removed and insertion site was covered. The same procedure, at the same levels, was completed on the right side. The patient was taken to the postprocedural recovery area and monitored for an appropriate length of time before found suitable for discharge in the company of a responsible adult. Anesthesia: Local Surgeon: Katie Lipscomb Pathology: none sent Condition: stable Disposition: no change
== END 2024-06-23 11:01 | disposition home or self-care (01) ==
LOC: SURGOUT 09:48
PROVIDERS: Family Provider Physician Assistant; PCP Nurse Practitioner Family; Visit Provider Anesthesiology
DX: M47.816 Spondylosis without myelopathy or radiculopathy, lumbar region (principal); M54.50 Low back pain, unspecified
CPT/HCPCS: 64493; 64494; J0665

== ENCOUNTER 2024-07-02 14:17 | Outpatient (OUT) | payer OTHER, SELFPAY ==
--- NOTE | 2024-07-02 14:35 | P.CN_ITS ---
Consult Note: HPI Data of Consult Patient: known to practice within the last 3 years Requesting Physician: Anna Stroud NP Primary Care Provider: KARIN MALONE Family Provider: CASH DANIEL Consult Narrative Reason for consult: f/u Narrative: Yanci Loco a 38 year old female presents for evaluation and management of chronic back pain and acute right foot/ankle pain. pt has failed heat, ice, tylenol, NSAIDs, and 6 weeks of PT/HEP for neck and low back pain . Pain in low back 2-3/10 increasing to 8/10 with standing, walking, lifting, pushing, pulling, bending, and sleep. previous lumbar MRI shows bulging disc at L4-5 and L5-S1 as well as lumbar spondylosis. pt recently underwent bilateral L4-5 L5-S1 MBB #1 with >80% improvement immediately following and 1 day after, preop pain up to 8/10 post op pain 0/10. pt reports on 06/24 she was playing kickball and twisted her foot and she thinks she broke her ankle. no imaging or f/u since injury. Pt noting moderate to severe pain with bruising, edema, and warmth to right anterior foot. cc:: CC: Anna Stroud NP Review of Systems ROS Status of ROS 10 or more systems reviewed and unremark able except as noted in history and below Musculoskeletal Reports: back pain and extremity pain PFSH PFSH Medical History Osteoarthritis ?M19.90 - Unspecified osteoarthritis, unspecified site (ICD-10) Carpal tunnel syndrome ?G56.00 - Carpal tunnel syndrome, unspecified upper limb (ICD-10) Acid reflux ?K21.9 - Gastro-esophageal reflux disease without esophagitis (ICD-10) Asthma ?J45.909 - Unspecified asthma, uncomplicated (ICD-10) Heart murmur ?R01.1 - Cardiac murmur, unspecified (ICD-10) Irregular heartbeat ?I49.9 - Cardiac arrhythmia, unspecified (ICD-10) Surgical History History of carpal tunnel release ?Z98.890 - Other specified postprocedural states (ICD-10) History of hysterectomy ?Z90.710 - Acquired absence of both cervix and uterus (ICD-10) History of tubal ligation ?Z98.51 - Tubal ligation status (ICD-10) History of surgery on arm ?Z98.890 - Other specified postprocedural states (ICD-10) Social History Smoking status: Former smoker Little interest or pleasure in doing things: not at all Feeling down, depressed, or hopeless: not at all Meds Home Medications and Allergies Home Medications ?Medication ?Instructions ?Recorded ?Confirmed ?Type albuterol sulfate 90 mcg/actuation 2 puff inhalation Q6H PRN wheezing 11/15/22 06/23/24 History aerosol inhaler ciclopirox 0.77 % topical cream 1 applic topical Q12H 11/15/22 06/23/24 History diclofenac sodium 1 % topical gel 2 g topical QID 11/15/22 06/23/24 History ciclopirox 1 % shampoo 5 ml topical QWEEK 04/16/23 06/23/24 History epinephrine 0.3 mg/0.3 mL 0.3 mg (0.3 mL) IM ONCE PRN 10/01/23 06/23/24 Rx injection, auto-injector allergic reaction #2 ea famotidine 20 mg tablet (Pepcid) 20 mg PO BID #10 tabs 10/01/23 06/23/24 Rx tizanidine 4 mg capsule (Zanaflex) 2 mg (1/2 x 4 mg) PO Q8H PRN 12/24/23 06/23/24 Rx muscle spasticity #10 caps aripiprazole 2 mg tablet 2 mg PO DAILY 02/11/24 06/23/24 History naproxen 250 mg tablet 250 mg PO Q12H PRN pain #14 tabs 04/21/24 06/23/24 Rx Allergies Allergy/AdvReac Type Severity Reaction Status Date / Time Penicillins Allergy Severe Rash Verified 06/23/24 10:17 tramadol Allergy Severe Swelling Verified 06/23/24 10:17 of Lip/Tongue/Throat bees AdvReac Mild sob Uncoded 04/28/24 07:40 Exam Constitutional Documenting provider has reviewed patient's vital signs: yes Common normals: no apparent distress, oriented x3, healthy appearing, alert and well nourished General appearance: cooperative [facility] Common normals: normocephalic, hearing grossly normal bilaterally and moist oral mucous membranes Head and scalp: normocephalic Eye Common normals: PERRL Pupil: PERRL Neck & C-Spine Common normals: full ROM General: normal visual inspection Cervical spine: no pain with cervical ROM and no cervical spine tenderness Other: negative spurlings strength 5/5 in BUE Chest Common normals: inspection of chest normal Respiratory Common normals: normal respiratory effort, no retractions and no use of accessory muscles Back & Pelvis Lumbar spine/lower back: ROM limited, pain with ROM, lumbar spinal tenderness, paraspinal muscle tenderness and straight leg raise negative bilaterally Other: strength 5/5 in BLE sensation intact BLE positive facet loading and tenderness L3-S1 Extremity Right lower extremity: ankle joint and foot and digits Right foot and digits: inspection (moderate edema noted to arch of foot) Other: limited ROM, mild to moderate edema of right foot and ankle, mild bruising noted. warm to touch. limited ROM with flexion and extension, pain with inversion and rotation Neuro Common normals: oriented x3, CN's II-XII intact bilaterally, moves all extremities, no focal motor deficits, no sensory deficits noted and deep tendon reflexes 2+ bilaterally Sensorium/orientation: alert Motor exam: no movement abnormalities noted Psych Common normals: mental status grossly normal, thought process normal, cooperative, affect normal, speech normal and activity/motor behavior normal Speech: normal speech Thought process: normal thought process Assessment and Plan Assessment and Plan (1) Lumbar spondylosis: Assessment and Plan: The patient has had over 3 months of moderate to severe low back pain with functional impairment and inadequate response to conservative care including NSAIDS (unless there are contraindication such as concurrent blood thinners), multiple oral or topical pain medications, and home exercise program/physical therapy.? Patient has completed >6 weeks of guided home exercise program and/or formal physical therapy program without relief of their symptoms.? I have reviewed the imaging of the lumbar spine and no red flags were identified.? The imaging reveals radiographic findings consistent with lumbar spondylosis The Oswestry Disability Index was completed, and the patient scored a 36%.? The patient noted the following:?? moderate to severe pain, pain with standing, walking, ADLs, sleep, impacting social life and travel We discussed the risks and benefits of the procedure with the patient, and we are NOT planning on using sedation as outlined in the guidelines from Medicare unless there is a documented reason that sedation would be strongly recommended.?? ?The procedure will be completed with fluoroscopic guidance.? (2) Acute pain of right foot: Assessment and Plan: encouraged rest, ice, PEYTON wrap, and elevation (3) Acute right ankle pain: (4) Lumbar stenosis with neurogenic claudication: Plan bilateral L4-5 L5-S1 MBB #2 working towards RFA update stat right foot/ankle xray to rule out fx, pt concerned for fx due to poor bone density per pt encouraged RICE as noted above f/u after injection
== END 2024-07-02 14:18 | disposition home or self-care (01) ==
LOC: PM 14:17
PROVIDERS: Family Provider Physician Assistant; PCP Nurse Practitioner Family; Visit Provider Nurse Practitioner
DX: M47.816 Spondylosis without myelopathy or radiculopathy, lumbar region (principal); M79.671 Pain in right foot; M25.571 Pain in right ankle and joints of right foot; M25.471 Effusion, right ankle; M48.062 Spinal stenosis, lumbar region with neurogenic claudication
CPT/HCPCS: 73610; 73630; G0463

== ENCOUNTER 2024-07-02 16:40 | Outpatient (OUT) | payer OTHER, SELFPAY ==
--- NOTE | 2024-07-02 | XR_ITS ---
The [address] [address] Patient Name: DEBORAH ESPINOZA MRN: [id number] date: 1985 Sex: F Assigned Patient Location: [facility] Current Patient Location: [facility] Accession/Order Number: [id number] Exam Date: 07/02/2024 19:47 Report Date: 07/02/2024 19:48 At the request of: ALICE MONK NP Procedure: XR foot RT min 3V 3 views right foot plain film COMPARISON:05/07/2024 HISTORY: Right foot injury/pain ACUTE FINDINGS: None DEGENERATIVE CHANGE: Unremarkable SOFT TISSUE FINDINGS: Unremarkable JOINT EFFUSION: None POSTOP CHANGES: None BONE MINERALIZATION: Adequate XR/XR foot RT min 3V IMPRESSION: No acute findings. Impression dictated by: Dmitry Gaffney M.D.07/02/2024 7:48 PM Dictation Location: [place] [address] Electronically authenticated by: [id number] Y Date: 07/02/2024 19:48
--- NOTE | 2024-07-02 | XR_ITS ---
The [place] [id number] Patient Name: DEBORAH ESPINOZA MRN: [id number] date: 1985 Sex: F Assigned Patient Location: [facility] Current Patient Location: [facility] Accession/Order Number: [id number] Exam Date: 07/02/2024 19:46 Report Date: 07/02/2024 19:47 At the request of: ALICE MONK NP Procedure: XR ankle RT min 3V 3 views right ankle plain film COMPARISON: 05/07/2024 HISTORY: Anterior right ankle pain. Injury. ACUTE FINDINGS: None DEGENERATIVE CHANGE: Unremarkable SOFT TISSUE FINDINGS: Anterior soft tissue prominence JOINT EFFUSION: None POSTOP CHANGES: None BONE MINERALIZATION: Adequate mineralization. Bony islands of the talus and calcaneus. XR/XR ankle RT min 3V IMPRESSION: Soft tissue swelling. No acute displaced fracture. Impression dictated by: Dmitry Gaffney M.D.07/02/2024 7:47 PM Dictation Location: [employer] Electronically authenticated by: [id number] Y Date: 07/02/2024 19:47
--- OUTSIDE RECORDS SUMMARY | 2024-07-02 16:50 | XMS_ITS | CCD ---
Author Organization [facility] Inform ion [facility] Care Team Providers Care Gaming Director Name Role Phone KOLBY KIRK Admitting Unavailable [...] [place] Attending Unavailable HEMCASH MUELLER Referring Unavailable SHANLE STARK Attending Unavailable HEMCASH MUELLER Referring Unavailable SHONDA PORTER Attending Unavailable HEMCASH MUELLER Referring Unavailable HEMCASH MUELLER Attending Unavailable PIETER SMITH Attending Unavailable HEMCASH MUELLER Referring Unavailable PIETER SMITH Attending Unavailable HEMCASH MUELLER Referring Unavailable HEMCASH MUELLER Attending Unavailable HEMCASH MUELLER Attending Unavailable ANJELICA MARTINS Primary Care Physician [phone] PENELOPE GARCIA Attending Unavailab le PENELOPE GARCIA Admitting Unavailab le Penelope Garcia APRN Primary Care Provider Penelope Garcia APRN Attending Provider Penelope Garcia Attending Unavailable Penelope Garcia Primary Care Unavailable Penelope Garcia Admitting Unavailable Giedraitis , Andrius Vytautsander Attending Unavailable Giedraitis MD, Andrius Vytautas Attending Unavailable Giedraitis MD, Andrius Vytautas Attending Unavailable Giedraitis MD, Andrius Vytautas Attending Unavailable Giedraitis MD, Andrius Vytautas Attending Unavailable Allergies Allergy Classification Reported Allergen(s) Allergy Type Date of Onset Reaction(s) Facility (1 source) cefdinir Drug Allergy 5 [facility] (7 sources) Penicillins Drug allergy (disorder) 3 Hives [facility] (7 sources) predniSONE Drug Allergy 2 Heartburn [facility] (1 source) traMADol Drug Allergy 3 [facility] (1 source) Pertussis Immune Globulin Drug allergy (disorder) 3 [facility] (9 sources) spinach allergenic extract; Translations: [Spinach (substance)] Drug Allergy 4 Airway constriction (finding) [facility] (7 sources) bee venom protein (honey bee); Translations: [bee venom protein (honey bee)] Allergy to substance 4 Anaphylaxis [facility] (7 sources) diphtheria,pert ussis (acellular),te; Translations: [diphtheria,per tussis (acellular),te] Allergy to substance 4 Unknown Reaction [facility] (2 sources) Bee/Wasp/Ant venom; Translations: [Bee Stings] Drug allergy [facility] (2 sources) Penicillin; Translations: [penicillin] Drug Allergy [facility] (2 sources) Pertussis Vaccine; Translations: [Whooping-cough vaccine] Drug Allergy Airway constriction (finding) [facility] (2 sources) Sodium Bicarbonate; Translations: [Baking soda] Drug Allergy Red color (finding) [facility] (1 source) Penicillins Drug allergy (disorder) [address] [place] [address] Repository (1 source) predniSONE Drug Allergy [address] [place] [address] Repository Medications Current Medications Medication Drug Class(es) [...] MG PO Daily February 01, 2024 8:44am [id number] 0.3 ml EPINEPHrine 1 mg/ml auto-injector (6 [...] 1 tablet by mouth once Methylprednisolone (Medrol (Domincik)) 4 mg tablets,dose pack Discontinued 0 PO [...] US renal RTon 05-12-2024 US renal RT [facility] [place] [address] Ultrasound Report Signed Patient: Yanci Loco MR#: [id number] : 1985 Acct:[id number] Age/Sex: 38 / F ADM Date: 05/12/24 Loc: UL [facility]: [facility]ending Dr: Penelope Garcia APRN, ORNAMENTAL MACHINE OPERATOR-C Ordering Provider: Penelope Garcia APRN, MARINE SUPERINTENDENT Date of Service: 05/12/24 US/US renal RT: 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, unspecified Copies to: Penelope Garcia APRN, MARINE SUPERINTENDENT EXAMINATION TYPE: US renal RT DATE OF [...] Whitney Jr., D.OPer05/12/2024 4:24 PM Dictation Location: [place] [address] Tech: Vernell Del Rosariovincenzo Transcribed By: TANA 05/12/24 1624 Dictated By: Mike Whitney Jr, DO 05/12/24 1623 Signed By: 05/12/24 1624 Normal [facility] Basophils Auto (Bld) [#/Vol] on 04-30-2024 Basophils (Bld) [#/Vol] Automated basophil count 0.0-0.1 [facility] Basophils/100 WBC Auto (Bld) on 04-30-2024 Basophils/100 WBC (Bld) Automated basophil % 0.2-2.0 [facility] Cholesterol in LDL Calc [Mas s/Vol]on 04-30-2024 Cholesterol in LDL [Mass/Vol] Cholesterol in LDL [Mass/volume] in Serum or Plasma by calculation [facility] Comment on above: <100 mg/dl [id number] 0-129 mg/dl NEAR OR ABOVE [id number] mg/dl BORDERLINE [id number] mg/dl HIGH>190 mg/dl VERY HIGH Cholesterol in VLDL Calc [Ma ss/Vol]on 04-30-2024 Cholesterol in VLDL [Mass/Vol] Cholesterol in VLDL [Mass/volume] in Serum or Plasma by calculation [facility] Eosinophils/100 WBC Auto (Bl d)on 04-30-2024 Eosinophils/100 WBC (Bld) Automated eosinophil % 0.9-7.0 [facility] Erythrocyte distribution wid th Auto (RBC) [Ratio]on 04-30-2024 Erythrocyte distribution width (RBC) [Ratio] Erythrocyte distribution width [Ratio] by Automated count 11.0-15.0 [facility] Estimated glomerular filtrat ion rate (GFR) non- Americanon 04-30-2024 GFR/1.73 sq M.predicted among non-blacks MDRD (S/P/Bld) [Vol rate/Area] Estimated glomerular filtration rate (GFR) non- >=60 mL/min/1.73m 2 [facility] Globulin Calc (S) [Mass/Vol] on 04-30-2024 Globulin (S) [Mass/Vol] Serum globulin measurement by calculation (mass/volume) [facility] Hematocrit Auto (Bld) [Volum e fraction]on 04-30-2024 Hematocrit (Bld) [Volume fraction] Hematocrit [Volume Fraction] of Blood by Automated count 36.0-48.0 [facility] Hemoglobin [Mass/volume] in Bloodon 04-30-2024 Hemoglobin (Bld) [Mass/Vol] Hemoglobin [Mass/volume] in Blood 12.0-16.0 [facility] Laboratory - Chemistry and C hemistry - challengeon 04-30-2024 Albumin [Mass/Vol] 3.6 g/dL 3.4-5.0 [facility] ALP [Catalytic activity/Vol] 70 U/L 46-116 [facility] ALT [Catalytic activity/Vol] 28 U/L 14-59 [facility] AST [Catalytic activity/Vol] 17 U/L 15-37 [facility] Bilirubin [Mass/Vol] 0.3 mg/dL 0.2-1.0 [facility] Calcium [Mass/Vol] 8.6 mg/dL 8.5-10.1 [facility] Chloride [Moles/Vol] 104 mmol/L 98-107 [facility] Cholesterol [Mass/Vol] 227 mg/dL High <=200 [facility] Cholesterol in HDL [Mass/Vol] 59 mg/dL 40-60 [facility] Comment on above: > or =60 mg/dl - LOW CARDIOVASCULAR RISK<40 mg/dl - HIGH CARDIOVASCULAR RISK CO2 [Moles/Vol] 26.5 mmol/L 21.0-32.0 [facility] Creatinine [Mass/Vol] 1.02 mg/dL 0.55-1.02 [facility] GFR/1.73 sq M.predicted MDRD (S/P/Bld) [Vol rate/Area] mL/min/{1.73_m2} >=60 mL/min/1.73m 2 [facility] Glucose [Mass/Vol] 86 mg/dL 74-106 [facility] Potassium [Moles/Vol] 3.6 mmol/L 3.5-5.1 [facility] Protein [Mass/Vol] 7.4 g/dL 6.4-8.2 [facility] Sodium [Moles/Vol] 140 mmol/L 136-145 [facility] Triglyceride [Mass/Vol] 165 mg/dL High <=150 [facility] Urea nitrogen [Mass/Vol] 16.0 mg/dL 7.0-18.0 [facility] Urea nitrogen/Creatinine [Mass ratio] 15.7 mg/mg [facility] Laboratory - Hematology and Cell countson 04-30-2024 Immature granulocytes/100 WBC (Bld) 0.1 % 0.0-0.5 [facility] Leukocytes [#/volume] correc souleymane for nucleated erythrocytes in Blood by Automated counon 04-30-2024 WBC corrected for nucl RBC Auto (Bld) [#/Vol] Leukocytes [#/volume] corrected for nucleated erythrocytes in Blood by Automated coun 4.0-11.0 [facility] Lymphocytes Auto (Bld) [#/Vo l]on 04-30-2024 Lymphocytes (Bld) [#/Vol] Lymphocytes [#/volume] in Blood by Automated count 1.2-3.8 [facility] Lymphocytes/100 WBC Auto (Bl d)on 04-30-2024 Lymphocytes/100 WBC (Bld) Lymphocytes/100 leukocytes in Blood by Automated count 20.5-60.0 [facility] MCH Auto (RBC) [Entitic mass ]on 04-30-2024 MCH (RBC) [Entitic mass] MCH [Entitic mass] by Automated count 26.7-34.0 [facility] MCHC Auto (RBC) [Mass/Vol]on 04-30-2024 MCHC (RBC) [Mass/Vol] MCHC [Mass/volume] by Automated count 29.9-35.2 [facility] MCV Auto (RBC) [Entitic vol] on 04-30-2024 MCV (RBC) [Entitic vol] MCV [Entitic volume] by Automated count 81.0-99.0 [facility] Monocytes Auto (Bld) [#/Vol] on 04-30-2024 Monocytes (Bld) [#/Vol] Automated blood monocyte count 0.3-0.8 [facility] Monocytes/100 WBC Auto (Bld) on 04-30-2024 Monocytes/100 WBC (Bld) Automated monocyte % 1.7-12.0 [facility] Neutrophils Auto (Bld) [#/Vo l]on 04-30-2024 Neutrophils (Bld) [#/Vol] Neutrophils [#/volume] in Blood by Automated count 1.4-6.5 [facility] Neutrophils/100 WBC Auto (Bl d)on 04-30-2024 Neutrophils/100 WBC (Bld) Automated neutrophil % 43.0-75.0 [facility] No Panel Informationon 04-30 Eosinophils # (Auto) 0.1 10 3/uL 0.0-0.7 [facility] Immature Granulocyte # (Auto) 0.01 10 3/uL 0.00-0.03 [facility] Platelet mean volume Auto (B ld) [Entitic vol]on 04-30-2024 Platelet mean volume (Bld) [Entitic vol] Platelet mean volume [Entitic volume] in Blood by Automated count 9.5-13.5 [facility] Platelets Auto (Bld) [#/Vol] on 04-30-2024 Platelets (Bld) [#/Vol] Platelets [#/volume] in Blood by Automated count 150-450 [facility] RBC Auto (Bld) [#/Vol]on RBC (Bld) [#/Vol] Erythrocytes [#/volume] in Blood by Automated count 4.20-5.40 [facility] Serum or plasma albumin/glob ulin mass ratioon 04-30-2024 Albumin/Globulin [Mass ratio] Serum or plasma albumin/globulin mass ratio [facility] Serum or plasma anion gap de terminationon 04-30-2024 Anion gap [Moles/Vol] Serum or plasma an ion gap determination [facility] Serum or plasma total choles terol/high density lipoprotein (HDL) cholesterol mass lucie 04-30-2024 Cholesterol.total/Cho lesterol in HDL [Mass ratio] Serum or plasma total cholesterol/high density lipoprotein (HDL) cholesterol mass rat [facility] Comment on above: 3.3 - 4.4 [...] in mGy = na DAP = na [facility] Consent for Treatmenton 07-31 Consent for Treatment [id number] .00TIFF [facility] Physician Orderon 08-14-2023 Physician Order [id number]# 1.00TIFF [facility] XR ANKLE RT MIN 3 VIEWSon [...] by: Santy RO Date: 2021-12-31 22:43 Normal [facility] CT NECK [facility] W CONon [...] by: LIZANDRO DELACRUZ Date: 2021-09-13 17:01 Normal [facility] XR HIP LT 2 3V [...] by: SANNA HOOD Date: 2021-04-18 11:23 Normal [facility] Vital Signs Date Time Vital Sign Value Performing Clinician Faci lity 04-29-2024 12:59-0500 Body height 165.1 cm [facility] 04-29-2024 12:59-0500 Body temperature 98.4 [degF] [facility] 04-29-2024 12:59-0500 Diastolic blood pressure 72 mm[Hg] [facility] 04-29-2024 12:59-0500 Heart rate 80 /min [facility] 04-29-2024 12:59-0500 SaO2% (BldA) [Mass fraction] 99 % [facility] 04-29-2024 12:59-0500 Systolic blood pressure 116 mm[Hg] [facility] 02-01-2024 09:28-0400 Body height 165.1 cm [facility] 02-01-2024 09:28-0400 Body mass index (BMI) [Ratio] 30.9 kg/m2 [facility] 02-01-2024 09:28-0400 Body temperature 96.8 [degF] [facility] 02-01-2024 09:28-0400 Body weight 84.48 kg [facility] 02-01-2024 09:28-0400 Diastolic blood pressure 76 mm[Hg] [facility] 02-01-2024 09:28-0400 Heart rate 70 /min [facility] 02-01-2024 09:28-0400 SaO2% (BldA) [Mass fraction] 98 % [facility] 02-01-2024 09:28-0400 Systolic blood pressure 124 mm[Hg] [facility] 09-27-2023 13:58-0400 Body height 165.1 cm [facility] 09-27-2023 13:58-0400 Body mass index (BMI) [Ratio] 30.4 kg/m2 [facility] 09-27-2023 13:58-0400 Body weight 83.06 kg [facility] 09-27-2023 13:58-0400 Diastolic blood pressure 76 mm[Hg] [facility] 09-27-2023 13:58-0400 Heart rate 70 /min [facility] 09-27-2023 13:58-0400 Respiratory rate 12 /min [facility] 09-27-2023 13:58-0400 Systolic blood pressure 122 mm[Hg] [facility] 08-06-2023 15:26-0400 Body height 165.1 cm [facility] 08-06-2023 15:26-0400 Body mass index (BMI) [Ratio] 29.7 kg/m2 [facility] 08-06-2023 15:26-0400 Body temperature 97.5 [degF] [facility] 08-06-2023 15:26-0400 Body weight 81.19 kg [facility] 08-06-2023 15:26-0400 Diastolic blood pressure 74 mm[Hg] [facility] 08-06-2023 15:26-0400 Heart rate 71 /min [facility] 08-06-2023 15:26-0400 Respiratory rate 18 /min [facility] 08-06-2023 15:26-0400 SaO2% (BldA) [Mass fraction] 98 % [facility] 08-06-2023 15:26-0400 Systolic blood pressure 110 mm[Hg] [facility] 06-20-2023 14:49-0400 Body height 165.1 cm [facility] 06-20-2023 14:49-0400 Body mass index (BMI) [Ratio] 29.7 kg/m2 [facility] 06-20-2023 14:49-0400 Body weight 81.19 kg [facility] 06-20-2023 14:49-0400 Diastolic blood pressure 80 mm[Hg] [facility] 06-20-2023 14:49-0400 Heart rate 78 /min [facility] 06-20-2023 14:49-0400 SaO2% (BldA) [Mass fraction] 98 % [facility] 06-20-2023 14:49-0400 Systolic blood pressure 116 mm[Hg] [facility] Encounters Encounter Date Encounter Type Care Provider Facility Start: 06-23-2024 End: 06-23-2024 ambulatory Katie Lipscomb MD Facility: [facility] Start: 05-26-2024 End: 05-26-2024 ambulatory Katie Lipscomb MD Facility: [facility] Start: 05-12-2024 End: 05-12-2024 Patient encounter procedure Penelope Garcia APRN Work Phone: [facility] [place] Work Phone: Start: 05-12-2024 End: 05-12-2024 ambulatory Penelope Garcia APRN Work Phone: [facility] Work Phone: Start: 04-30-2024 Non-patient / Non-visit Ruthie Garcia APRN [facility] Work Phone: Start: 04-29-2024 Patient encounter status [facility] Start: 04-29-2024 End: 04-29-2024 ambulatory [facility] Work Phone: Start: 04-29-2024 End: 04-29-2024 Encounter for general adult medical examination without abnormal findings [facility] Start: 04-29-2024 End: 04-29-2024 Patient encounter procedure [facility] Work Phone: Start: 04-28-2024 End: 04-28-2024 ambulatory Katie Lipscomb MD Facility:[facility] Start: 04-22-2024 Non-patient / Non-visit [facility] Work Phone: Start: 03-10-2024 End: 03-10-2024 ambulatory Katie Lipscomb MD Facility:[facility] Start: 02-11-2024 End: 02-11-2024 ambulatory Katie Lipscomb MD Facility:[facility] Start: 02-01-2024 End: 02-01-2024 ambulatory [facility] Work Phone: Start: 02-01-2024 End: 02-01-2024 Patient encounter procedure [facility] Work Phone: Start: 09-27-2023 End: 09-27-2023 ambulatory [facility] Work Phone: Start: 09-27-2023 End: 09-27-2023 Patient encounter procedure [facility] Work Phone: Start: 08-14-2023 End: 08-15-2023 ambulatory PENELOPE GARCIA Facility:[facility] Start: 08-14-2023 End: 08-14-2023 Patient encounter procedure PENELOPE GARCIA [facility] Start: 08-06-2023 End: 08-06-2023 ambulatory [facility] Work Phone: Start: 08-06-2023 End: 08-06-2023 Patient encounter procedure [facility] Work Phone: Start: 06-20-2023 End: 06-20-2023 ambulatory [facility] Work Phone: Start: 06-20-2023 End: 06-20-2023 Patient encounter procedure [facility] Work Phone: Start: 06-06-2023 End: 06-06-2023 ambulatory CASH DANIEL Not Available Start: 05-23-2023 End: 05-23-2023 ambulatory CASH DANIEL Not Available Start: 04-16-2023 End: 04-17-2023 ambulatory SHONDA PORTER Not Available Start: 04-13-2023 End: 04-13-2023 ambulatory SHANEL STARK Not Available Start: 04-11-2023 End: 04-11-2023 ambulatory VERNELL SMALLWOOD Not Available Start: 04-06-2023 End: 04-07-2023 ambulatory VERNELL SMALLWOOD Not Available Start: 04-04-2023 End: 04-04-2023 ambulatory TASHI JOCELYN Not Available Start: 03-30-2023 End: 03-30-2023 ambulatory [...] tube J DONNA GARCIA right forearm PENELOPE PERALTAR Plan of Treatment Date Care Activity Detail Author Start: 04-29-2024 Patient referral [facility] Work Phone: Start: 02-01-2024 Patient referral [facility] Work Phone: Start: 06-20-2023 Patient referral [facility] Work Phone: Comprehensive metabo lic 2000 panel - Serum or Plasma [facility] DXA Skeletal system. axial Views for bone density [facility] Patient Education Low back pain in adults [facility] Work Phone: Patient referral [facility] Work Phone: US Heart Transthoracic [facility] US Kidney - bilateral [facility] Payers Date Payer Category Payer Self-pay 2023 Unknown 2017 Medicaid [id number] 1985 Unknown [id number] 2.16.84 0.1.455216.3.579.2.593 1985 Unknown [id number] 2.16.84 0.1.494568.3.579.2.593 1985 Unknown [id number] 2.16.84 0.1.510270.3.579.2.593 1986 Unknown [id number] .16.84 0.1.208922.3.579.2.593 1986 Unknown [id number] 2.16.84 0.1.529982.3.579.2.593 1986 Unknown [id number] 2.16.84 0.1.251832.3.579.2.1259 1986 Unknown [id number] 2.16.84 0.1.952542.3.579.2.1259 1986 Unknown [id number] 2.16.84 0.1.358535.3.579.2.1259 1986 Unknown [id number] 2.16.84 0.1.673191.3.579.2.9 1986 Unknown [id number] 2.16.84 0.1.418968.3.579.2.1258 1986 Unknown [id number] 2.16.84 0.1.056090.3.579.2.1258 1986 Unknown [id number] 2.16.840 .1.279660.3.579.2.1258 1986 Unknown [id number] 2.16.840 .1.241708.3.579.2.1258 1986 Unknown [id number] 2.16.840 .1.468466.3.579.2.1258 1986 Unknown [id number] 2.16.840 .1.367347.3.579.2.1258 1986 Unknown [id number] 2.16.840 .1.778183.3.579.2.1258 1986 Unknown [id number] 2.16.8 40.1.045684.3.579.2.727 1986 Unknown [id number] 2.16. 840.1.821659.3.579.2. 1986 Unknown [id number] 2.16. 840.1.618929.3.579.2. 1986 Unknown [id number] 2.16. 840.1.095198.3.579.2. 1986 Unknown [id number] 2.16. 840.1.676941.3.579.2. 1986 Unknown [id number] 2.16. 840.1.484507.3.579.2.196 1959 Unknown [id number] Medicaid [employer] [id number] Unknown [id number] 2.16.8 40.1.515232.3.579.2.531 Social History Date Type Detail Facility Start: 06-20-2023 Tobacco smoking stat us NHIS Never smoked tobacco (finding) [facility] Start: 1985 Sex Assigned At Female F [facility] Tobacco smoking status [facility] Start: 02-01-2024 End: 02-01-2024 Tobacco smoking status TNIS Ex-smoker (finding) [facility] Start: 04-29-2024 End: 05-13-2024 Sex Female (finding) [facility] Clinical Notes 04-07-2021 to 05-12-2024 Note Date & Type Note Facility 05-12-2024 Radiology Diagnostic study note [facility] [place] [address] Ultrasound Report Signed Patient: Yanci Loco MR#: [id number] : 1985 Acct:[id number] Age/Sex: 38 / F ADM Date: 5 Loc: Room: Type: [facility] Attending Dr: Penelope Garcia APRN, NP-C Ordering [...] Whitney Jr., D.O.05/12/2024 4:24 PM Dictation Location: [place] [address] Tech: Vernell Reinbolt Transcribed By: TANA 05/12/24 162 Dictated By: Mike Whitney Jr, DO 05/12/24 1623 Signed By: 05/12/24 1626 [facility] 04-29-2024 Evaluation note Diagnosis Onset Date Resolution Family history of osteoporosis acute April 29 12:56pm History of hysterectomy acute J anuary 2024 12:56pm Kidney anomaly, congenital acute April 29 12:56pm Screening for osteoporosis acute April 29 12:56pm Sprain of right ankle acute Apr 12:56pm [facility] Work Phone: 1(256) 655-672511-01-2024 Evaluation note* Diagnosis Onset Date Resolution Status [...] Apr 12:56pm Wellness examination acute 2024 12:56pm [facility] Work Phone: 1(376) 205-967803-20-2024 Hospital Discharge instructionsAmbulatory Orders* Referral to Orthopedic Surgery Time Frame: 06/20/23, Location: None Selected [facility] Work Phone: 1(557) 396-688110-10-2022 NotePROCEDURE: XR ANKLE RT MIN 3 VIEWS HISTORY: Contusion of right ankle ; acute anterior right ankle pain since injury 16 days ago COMPARISON: XR ankle right 12/31/2021 FINDINGS: BONES:No fracture, acute abnormality, or significant arthropathy. SOFT TISSUES:No visible soft tissue swelling. EFFUSION:None visible. OTHER: Negative. IMPRESSION: 1. Normal examination. Electronically authenticated by: LIZANDRO DELACRUZ Date: 2022-01-09 16:12[id number] NotePROCEDURE: XR FEMUR LT COMPARISON: None. HISTORY: Unspecified fall FINDINGS: BONES:No fracture, acute abnormality, or significant arthropathy. SOFT TISSUES:Negative. No visible soft tissue swelling. EFFUSION:None visible. OTHER: Negative. IMPRESSION: No acute abnormality Electronically authenticated by: TEODORO WHITLEY Date: 2021-04-07 09:14[facility] note No data available for this section [facility] Diagnosis Onset Date Resolution Status Anxiety acute Asthma acute Depression acute Irregular heart beat acute Maxillary sinusitis acute Scoliosis acute Trigger finger of right hand acute [facility] Work Phone: Evaluation note* Diagnosis Onset Date Resolution Status Anxiety acute Asthma acute Depression acute Irregular heart beat acute Maxillary sinusitis acute Scoliosis acute Trigger finger of right hand acute Congenital heart defect acut e Irregular heart beat acute Scoliosis acute [facility] Work Phone: Evaluation note* Diagnosis Onset Date Resolution Status Congenital heart defect acut e Deformity of right lower extremity acute Irregular heart beat acute Scoliosis acute Stress headaches acute Trigger finger of right hand acute Rash acute [facility] Work Phone: Evaluation note* Diagnosis Onset Date Resolution Status Anxiety acute Chronic lower back pain acut e Deformity of right lower extremity acute Depression acute GERD (gastroesophageal reflux disease) acute Stress headaches acute [facility] Work Phone: Hospital Discharge instructions No data available for this section [facility]* Referral to Pain Management Time Frame: 02/01/24, Location: None [facility] Work Phone: Hospital Discharge instructionsAmbulatory Orders* Referral to Podiatry Time Frame: 04/29/24, Location: None [facility] Work Phone: Progress note No data available for this section [facility] Summary Purpose Family History No Family [...] ER f/u right foot injury April 29 025 12:56pm Q63.9 May 12, 2024 1:46pm [...] DATE CREATED AUTHOR AUTHOR'S ORGANIZ ATION 06/07/2023 [facility] EPIC DATE CREATED AUTHOR AUTHOR'S ORGANIZ ATION 08/16/2023 [facility] DATE CREATED AUTHOR AUTHOR'S ORGANIZ ATION 05/19/2024 [facility] DATE CREATED AUTHOR AUTHOR'S ORGANIZ ATION 06/28/2024 [facility] Care Teams (unrecognized sec tion and content) Team Status: Active Member Role Status Dates Penelope Garcia APRN ORNAMENTAL MACHINE OPERATOR-C Primary Care Provider Active Team Status: Inactive Member Role Status Dates Penelope Garcia APRN ORNAMENTAL MACHINE OPERATOR-C Primary Care Provider, Attending Provider Active Start: June 20, 2023 End: June 20, 2023 Team Status: Inactive Member Role Status Dates Penelope Garcia APRN ORNAMENTAL MACHINE OPERATOR-C Primary Care Provider, Attending Provider Active Start: August 06, 2023 End: August 06, 2023 Team Status: Inactive Member Role Status Dates Penelope Garcia APRN ORNAMENTAL MACHINE OPERATOR-C Primary Care Provider, Attending Provider Active Start: September 27, 2023 End: September 27, 2023 Team Status: Inactive Member Role Status Dates Penelope Garcia APRN ORNAMENTAL MACHINE OPERATOR-C Primary Care Provider, Attending Provider Active Start: February 01, 2024 End: February 01, 2024 Team Status: Active Member Role Status Dates Penelope Garcia APRN ORNAMENTAL MACHINE OPERATOR-C Primary Care Provider Active Start: April Khadijah Corbin CMA Attending Provider Active Start: April 22, 2024 Team Status: Inactive Member Role Status Dates Penelope Garcia APRN ORNAMENTAL MACHINE OPERATOR-C Primary Care Provider, Attending Provider Active Start: April 29, 2024 End: April 29, 2024 Team Status: Active Member Role Status Dates Penelope Garcia APRN ORNAMENTAL MACHINE OPERATOR-C Primary Care Provider, Attending Provider Active Start: April 30, 2024 Team Status: Inactive Member Role Status Dates Penelope Garcia APRN ORNAMENTAL MACHINE OPERATOR-C Primary Care Provider, Attending Provider Active [...] BE BASED ON THE PRIMARY CLINICAL RECORDS. [employer] provides no warranty or guarantee of the accuracy or completeness of information in this document.
== END 2024-07-02 16:41 | disposition home or self-care (01) ==
LOC: RAD 16:41
PROVIDERS: Family Provider Physician Assistant; PCP Nurse Practitioner Family; Visit Provider Nurse Practitioner
DX: M79.671 Pain in right foot (principal); M25.571 Pain in right ankle and joints of right foot; M25.471 Effusion, right ankle
CPT/HCPCS: 73610; 73630

== ENCOUNTER 2024-07-28 07:39 | Day surgery (SDC) | payer OTHER, SELFPAY ==
[2024-07-28 08:16] VITALS: BP 140/98; PULSE 72; TEMP 36.4; O2SAT 97
[2024-07-28 08:50] VITALS: BP 163/102; PULSE 76; O2SAT 100
[2024-07-28] MEDS: LIDOCAINE HCL 2% 400 MG/20 ML MDV INJ (08:51)
[2024-07-28] MEDS: BUPIVACAINE HCL 0.25% PF 25 MG/10 ML VIAL 8 ML INJ (08:51)
[2024-07-28 08:53] VITALS: BP 194/102; PULSE 78; O2SAT 100
--- NOTE | 2024-07-28 08:53 | W.PM.PROCNOT ---
Date of procedure: 07/28/24 Pre-op diagnosis: Pain due to lumbar spondylosis without myelopathy Post-op diagnosis: same as pre-op Procedure: Procedure: Bilateral L4-5, L5-S1 medial branch block Medications: Bupivacaine 0.25% 6cc The patient was seen and examined in the preoperative holding area.? An informed consent was obtained and placed on the chart.? The patient was brought to the medical procedure unit and placed in the prone position.? A timeout was completed verifying correct patient, procedure site, positioning, plan, and special equipment.? Using aseptic technique, the needle was placed at left L4. Under direct fluoroscopic visualization a Quincke-tipped spinal needle was advanced to the junction of the superior articulating process with the transverse process at the designated medial branch segment.? Preceded by negative aspiration, the above-mentioned injectate was placed in 1 mL aliquots.? The procedure was repeated at left L5, S1.? The needle was removed and insertion site was covered. The same procedure, at the same levels, was completed on the right side. The patient was taken to the postprocedural recovery area and monitored for an appropriate length of time before found suitable for discharge in the company of a responsible adult. Anesthesia: Local Surgeon: Katie Lipscomb Pathology: none sent Condition: stable Disposition: no change
== END 2024-07-28 08:57 | disposition home or self-care (01) ==
LOC: SURGOUT 07:40
PROVIDERS: Family Provider Physician Assistant; PCP Nurse Practitioner Family; Visit Provider Anesthesiology
DX: M47.816 Spondylosis without myelopathy or radiculopathy, lumbar region (principal); M54.50 Low back pain, unspecified
CPT/HCPCS: 64493; 64494; J0665

== ENCOUNTER 2024-07-29 13:48 | Outpatient (OUT) | payer OTHER, SELFPAY ==
--- NOTE | 2024-07-29 13:52 | US_ITS ---
[facility] [place] [id number] Patient Name: DEBORAH ESPINOZA MRN: [id number] date: 1985 Sex: F Assigned Patient Location: US Current Patient Location: US Accession/Order Number: [id number] Exam Date: 07/29/2024 15:04 Report Date: 07/29/2024 15:05 At the request of: KARIN MALONE Procedure: US renal BI BILATERAL RENAL AND BLADDER ULTRASOUND CLINICAL HISTORY: Congenital Abnormality Of Kidney COMPARISON: None FINDINGS: Estimation of renal size is approximately 12.6 cm on the right. The left kidney appears absent. No contour deforming mass, shadowing stone or hydronephrosis. The urinary bladder is partially distended with a volume of 236 ml. No shadowing stone or focal lesion. US/US renal BI IMPRESSION: No acute findings. Impression dictated by: Mike Whitney Jr., DPerOPer 07/29/2024 3:05 PM Dictation Location: [place] [id number] Electronically authenticated by: [id number] Y Date: 07/29/2024 15:05
== END 2024-07-29 13:49 | disposition home or self-care (01) ==
LOC: US 13:48
PROVIDERS: Family Provider Physician Assistant; PCP Nurse Practitioner Family; Visit Provider Nurse Practitioner Family
DX: Q63.9 Congenital malformation of kidney, unspecified (principal); Z90.710 Acquired absence of both cervix and uterus; Z13.820 Encounter for screening for osteoporosis; Z82.62 Family history of osteoporosis
CPT/HCPCS: 76775; 77080

== ENCOUNTER 2024-08-14 11:39 | Outpatient (OUT) | payer OTHER, SELFPAY ==
--- OUTSIDE RECORDS SUMMARY | 2024-08-14 11:49 | XMS_ITS | CCD ---
Author Organization [facility] CliniSyct Care Team Providers Care Rope Tow Operator Name Role Phone KOLBY KIRK Admitting Unavailable [...] Attending Unavailable ANJELICA MARTINS Primary Care Physician ROHRBACHER, PENELOPE A Attending Unavailab le ROHRBACHERPENELOPE A Admitting Unavailab le Rohrbacher GRINDING AND POLISHING LABORER, Penelope Primary Care Provider Rohrbacher GRINDING AND POLISHING LABORER, Penelope Attending Provider Stalinrbjodier, Penelope Attending Unavailable Rohrbacher, Penelope Primary Care Unavailable Rohrbacher, Penelope Admitting Unavailable Rohrbacher GRINDING AND POLISHING LABORER, Penelope Primary Care Provider Rohrbacher GRINDING AND POLISHING LABORER, Penelope Attending Provider [phone] Giedraitis MD, Andrius Vytautas Attending Unavailable Giedraitis MD, Andrius Vytautas Attending Unavailable Giedraitis MD, Andrius Vytautas Attending Unavailable Giedraitis MD, Andrius Vytautas Attending Unavailable Giedraitis MD, Andrius Vytautas Attending Unavailable Giedraitis MD, Andrius Vytautas Attending Unavailable Allergies Allergy Classification Reported Allergen(s) Allergy Type Date of Onset Reaction(s) Facility (1 source) cefdinir Drug Allergy 5 [facility] Repository (8 sources) Penicillins Drug allergy (disorder) 3 Hives [facility] (8 sources) predniSONE Drug Allergy 2 Heartburn [facility] (1 source) traMADol Drug Allergy 3 [facility] (1 source) Pertussis Immune Globulin Drug allergy (disorder) 3 [facility] (10 sources) spinach allergenic extract; Translations: [Spinach (substance)] Drug Allergy 4 Airway constriction (finding) [facility] (8 sources) bee venom protein (honey bee); Translations: [bee venom protein (honey bee)] Allergy to substance 4 Anaphylaxis [facility] (8 sources) diphtheria,pert ussis (acellular),te; Translations: [diphtheria,per tussis (acellular),te] Allergy to substance 4 Unknown Reaction [facility] (2 sources) Bee/Wasp/Ant venom; Translations: [Bee Stings] Drug allergy [facility] (2 sources) Penicillin; Translations: [penicillin] Drug Allergy [facility] (2 sources) Pertussis Vaccine; Translations: [Whooping-cough vaccine] Drug Allergy Airway constriction (finding) [facility] (2 sources) Sodium Bicarbonate; Translations: [Baking soda] Drug Allergy Red color (finding) [facility] (1 source) Penicillins Drug allergy (disorder) [address] [place] [address] Repository (1 source) predniSONE Drug Allergy [address] [place] [address] Repository Medications Current Medications Medication Drug Class(es) Dates Sig (Normalized) Sig (Original) Acetaminophen / HYDROcodone (1 source) Opioid Agonist Start: 06-13-2011 Vicodin 500 mg-5 mg Tab 1 tab(s), Oral, q4hr as needed for pain, 10 tab(s), Refill(s) 0, Take one tab by mouth every four hours as needed for pain Start Date: 06/13/11 Status: Ordered Albuterol (15 sources) beta2-Adrenergic Agonist Start: 01-30-2024 take 1 [...] for shortness of breath or wheezing June 20, 2023 12:00am Start: 06-20-2023 End: 01-30-2024 take 1 puff(s) by inhalation every six hours as needed Albuterol Sulfate 90 mcg/actuation HFA aerosol inhaler Discontinued 2 PUFF INHALATION Every 6 hours as needed June 20, 2023 12:00am January 30, 2024 4:08pm Albuterol Sulfate 90 mcg/actuation HFA aerosol inhaler (3 sources) Start: 01-30-2024 take 1 puff(s) by inhalation every six hours as needed for wheezing Albuterol Sulfate 90 mcg/actuation HFA aerosol inhaler Active 2 PUFF INHALATION Every 6 hours as needed for shortness of breath or wheezing 6.7 January 30, 2024 4:08pm Start: 01-30-2024 take 1 puff(s) by in halation every six hours as needed for wheezing Albuterol Sulfate 90 mcg/actuation HFA aerosol inhaler Active 2 PUFF INHALATION Every 6 hours as needed for shortness of breath or wheezing 6.7 January 30, 2024 3:08pm ARIPiprazole 2 mg oral tablet (12 sources) Atypical Antipsychotic Start: 06-20-2023 End: 08-04-2024 take 1 tablet by mouth once daily Aripiprazole 2 mg tablet Active 2 MG PO Daily August 04, 2024 1:28pm [id number] 0.3 ml EPINEPHrine 1 mg/ml auto-injector (7 sources) alpha-Adrenergic Agonist, beta-Adrenergic Agonist, Catecholamine Start: 06-20-2023 Epinephrine 0.3 mg/0.3 mL auto-injector Active 0.3 ML SUBCUT Once as needed June 20, 2023 12:00am famotidine 20 mg oral tablet (9 sources) Histamine-2 Receptor Antagonist Start: 02-01-2024 End: 08-04-2024 take 1 tablet by mouth once daily Famotidine 20 mg tablet Active 20 MG PO Daily August 04, 2024 1:29pm fluticasone / salmeterol (1 source) Corticosteroid, beta2-Adrenergic Agonist Start: 12-07-2009 take 1 puff(s) by inhalation once daily Advair 250 mcg-50 mcg Powder 1 puff(s), Inhalation, Daily, Refill(s) 0 Start Date: 12/07/09 Status: Ordered ibuprofen 800 mg oral tablet (14 sources) Nonsteroidal Anti-inflammatory Drug Start: 12-25-2023 End: 03-24-2024 take 1 tablet by mouth every eight hours as needed for pain Ibuprofen 800 mg tablet Active 800 MG PO Every 8 hours as needed for pain March 24, 2024 9:11am Start: 06-20-2023 End: 12-25-2023 take 1 tablet by mouth every six hours as needed Ibuprofen 800 mg tablet Discontinued 800 MG PO Every 6 hours as needed June 20, 2023 12:00am December 25, 2023 [...] Sig (Original) ciclopirox 10 mg/ml medicated shampoo (14 sources) Start: 06-20-2023 End: 02-01-2024 Ciclopirox 1 % shampoo Discontinued TOPICAL June 20, 2023 12:00am February 01, 2024 9:32am Start: 06-20-2023 End: 02-01-2024 Ciclopirox 0.77 % cream Disc ontinued 1 APPLIC TOPICAL Daily June 20, 2023 12:00am February 01, 2024 9:32am Start: 06-20-2023 End: 02-01-2024 Ciclopirox Discontinued TOPI EBONY June 20, 2023 12:00am February 01, 2024 9:32am Diclofenac (7 sources) Nonsteroidal Anti-inflammatory Drug Start: 06-20-2023 End: 02-01-2024 Diclofenac Sodium 1 % gel Discontinued TOPICAL June 20, 2023 12:00am February 01, 2024 9:32am Start: 06-20-2023 End: 02-01-2024 Diclofenac Sodium 1 % gel Di scontinued TOPICAL June 19, 2023 11:00pm February 01, 2024 8:32am Start: 06-20-2023 End: 02-01-2024 Diclofenac Sodium Discontinu ed TOPICAL June 20, 2023 12:00am February 01, 2024 9:32am Start: 06-20-2023 Diclofenac Sod ium Active TOPICAL June 20, 2023 12:00am doxycycline monohydrate 100 mg oral tablet (7 sources) Tetracycline-class Drug Start: 06-20-2023 End: 02-01-2024 take 1 tablet by mouth twice daily Doxycycline Monohydrate 100 mg tablet Discontinued 100 MG PO Twice daily 19 01June 20, 2023 12:00am February 01, 2024 9:32am methylPREDNISolone 4 mg oral tablet (5 sources) Corticosteroid Start: 09-27-2023 End: 02-01-2024 take 1 tablet by mouth once Methylprednisolone (Medrol (Dominick)) 4 mg tablets,dose pack Discontinued 0 PO per package directions 20 09September 27, 2023 12:00am February 01, 2024 9:33am PO PER PKG DIR mupirocin 0.02 mg/mg topical ointment (7 sources) RNA Synthetase Inhibitor Antibacterial Start: 06-20-2023 End: 02-01-2024 Mupirocin 2 % ointment Discontinued 1 APPLIC TOPICAL Twice daily 21 10June 20, 2023 12:00am February 01, 2024 9:33am Problems Active Problems Problem Classification Problem Date Documented Date Episodic/Chronic Anxiety disorders (12 sources) Anxiety; Translations: [Anxiety disorder, unspecified] 06-20-2023 Chronic Asthma (12 sources) Unspecified asthma, uncomplicated; Translations: [Asthma] Onset: 01-02-2022 06-20-2023 Chronic Cardiac and circulatory congenital anomalies (8 sources) Congenital heart disease; 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, unspecified] 08-06-2023 Chronic Cardiac dysrhythmias (11 sources) Irregular heart beat; Translations: [Cardiac arrhythmia, [...] source) Premature labor 06-13-2013 Episodic Esophageal disorders (7 sources) Gastroesophageal reflux disease; Translations: [Gastro-esophageal reflux disease without esophagitis] 02-01-2024 Chronic Genitourinary congenital anomalies (6 sources) Congenital anomaly of the kidney; 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, unspecified] Onset: 05-12-2024 04-29-2024 Chronic Heart valve disorders (1 source) Heart murmur 06-13-2013 Episodic Miscellaneous mental health disorders (9 sources) Psychogenic headache; 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] 08-07-2023 Chronic Mood disorders (12 sources) Depressive disorder; Translations: [Depression] 06-20-2023 Chronic Osteoarthritis (10 sources) Unspecified osteoarthritis, unspecified site; Translations: [Arthritis] Onset: 01-02-2022 06-20-2023 Chronic Comment on above: Right wrist/arm Other acquired deformities (5 sources) Scoliosis, unspecified; Translations: [Scoliosis [and kyphoscoliosis], idiopathic] Onset: 04-11-2021 06-20-2023 Chronic Other acquired deformities (7 sources) Scoliosis deformity of spine; Translations: [Scoliosis, unspecified] 06-20-2023 Chronic Other acquired deformities (5 sources) Deformity of lower limb; Translations: [Unspecified acquired deformity of right thigh] 08-07-2023 Episodic Other acquired deformities (4 sources) Unspecified acquired deformity of right thigh; Translations: [Other acquired deformity of other parts of limb] 08-06-2023 Episodic Other bone disease and musculoskeletal deformities (1 source) 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 Other congenital anomalies (1 source) 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 Other connective tissue disease (7 sources) Triggering of digit; Translations: [Trigger finger, unspecified finger] 06-20-2023 Episodic Other connective tissue disease (3 sources) Trigger finger, unspecified finger; Translations: [Trigger finger (acquired)] 06-20-2023 Episodic Other nervous system disorders (8 sources) Carpal tunnel syndrome; Translations: [Carpal tunnel syndrome, unspecified upper limb] 06-20-2023 Chronic Other non-traumatic joint disorders (3 sources) Pain in right ankle and joints of right foot; Translations: [PAIN IN RIGHT ANKLE] Onset: 12-31-2021 Episodic Other screening for suspected conditions (not mental disorders or infectious disease) (5 sources) Patient encounter status; Translations: [Encounter for screening for osteoporosis] 04-29-2024 Episodic Other skin disorders (5 sources) Eruption; Translations: [Rash and other nonspecific skin eruption] 09-27-2023 Episodic Other skin disorders (1 source) Rash and other nonspecific skin eruption; Translations: [Rash and other nonspecific skin eruption] 09-27-2023 Episodic Other upper respiratory infections (9 sources) Maxillary sinusitis; Translations: [Chronic maxillary sinusitis] 06-20-2023 Chronic Residual codes; unclassified (3 sources) Family history of osteoporosis; Translations: [Family history of osteoporosis] 04-29-2024 Episodic Residual codes; unclassified (2 sources) Family history of osteoporosis; Translations: [Family history of osteoporosis] 04-29-2024 Episodic Residual codes; unclassified (2 sources) Acquired absence of both cervix and uterus; Translations: [Acquired absence of both cervix and uterus] 04-29-2024 Episodic Spondylosis; intervertebral disc disorders; other back problems (7 sources) Chronic low back pain; Translations: [Chronic low back pain] 02-01-2024 Episodic Sprains and strains (5 sources) Sprain of right ankle; Translations: [Sprain [...] US renal RTon 05-12-2024 US renal RT [facility] [place] [address] [place] [address] Ultrasound Report Signed Patient: Yanci Loco MR#: [id number] : 1985 Acct:[id number] Age/Sex: 38 / F ADM Date: 05/12/24 Loc: Room: Type: [facility] Attending Dr: LUCRETIA Andino APRNC Ordering Provider: [...] ultrasound. Impression dictated by: Mike Whitney Jr., DPerOPer05/12/2024 4:24 PM Dictation Location: [place] [address] Tech: Vernell Sirena Transcribed By: TANA 05/12/24 1624 Dictated By: Mike Whitney Jr, DO 05/12/24 1623 Signed By: 05/12/24 1624 Normal [facility] Basophils Auto (Bld) [#/Vol] on 04-30-2024 Basophils (Bld) [#/Vol] Automated basophil count 0.0-0.1 [facility] Basophils/100 WBC Auto (Bld) on 04-30-2024 Basophils/100 WBC (Bld) Automated basophil % 0.2-2.0 [facility] Cholesterol in LDL Calc [Mas s/Vol]on 04-30-2024 Cholesterol in LDL [Mass/Vol] Cholesterol in LDL [Mass/volume] in Serum or Plasma by calculation [facility] Comment on above: <100 mg/dl [id number] 0-129 mg/dl NEAR OR ABOVE [id number] mg/dl BORDERLINE [id number] mg/dl HIGH>190 mg/dl VERY HIGH Cholesterol in VLDL Calc [Ma ss/Vol]on 04-30-2024 Cholesterol in VLDL [Mass/Vol] Cholesterol in VLDL [Mass/volume] in Serum or Plasma by calculation [facility] Eosinophils/100 WBC Auto (Bl d)on 04-30-2024 Eosinophils/100 WBC (Bld) Automated eosinophil % 0.9-7.0 [facility] Erythrocyte distribution wid th Auto (RBC) [Ratio]on 04-30-2024 Erythrocyte distribution width (RBC) [Ratio] Erythrocyte distribution width [Ratio] by Automated count 11.0-15.0 [facility] Estimated glomerular filtrat ion rate (GFR) non- Americanon 04-30-2024 GFR/1.73 sq M.predicted among non-blacks MDRD (S/P/Bld) [Vol rate/Area] Estimated glomerular filtration rate (GFR) non- >=60 mL/min/1.73m 2 [facility] Globulin Calc (S) [Mass/Vol] on 04-30-2024 Globulin (S) [Mass/Vol] Serum globulin measurement by calculation (mass/volume) [facility] Hematocrit Auto (Bld) [Volum e fraction]on 04-30-2024 Hematocrit (Bld) [Volume fraction] Hematocrit [Volume Fraction] of Blood by Automated count 36.0-48.0 [facility] Hemoglobin [Mass/volume] in Bloodon 04-30-2024 Hemoglobin (Bld) [Mass/Vol] Hemoglobin [Mass/volume] in Blood 12.0-16.0 [facility] Laboratory - Chemistry and C hemistry - challengeon 04-30-2024 Albumin [Mass/Vol] 3.6 g/dL 3.4-5.0 [facility] ALP [Catalytic activity/Vol] 70 U/L 46-116 [facility] ALT [Catalytic activity/Vol] 28 U/L 14-59 [facility] AST [Catalytic activity/Vol] 17 U/L 15-37 [facility] Bilirubin [Mass/Vol] 0.3 mg/dL 0.2-1.0 [facility] Calcium [Mass/Vol] 8.6 mg/dL 8.5-10.1 [facility] Chloride [Moles/Vol] 104 mmol/L 98-107 [facility] Cholesterol [Mass/Vol] 227 mg/dL High <=200 [facility] Cholesterol in HDL [Mass/Vol] 59 mg/dL 40-60 [facility] Comment on above: > or =60 mg/dl - LOW CARDIOVASCULAR RISK<40 mg/dl - HIGH CARDIOVASCULAR RISK CO2 [Moles/Vol] 26.5 mmol/L 21.0-32.0 [facility] Creatinine [Mass/Vol] 1.02 mg/dL 0.55-1.02 [facility] GFR/1.73 sq M.predicted MDRD (S/P/Bld) [Vol rate/Area] mL/min/{1.73_m2} >=60 mL/min/1.73m 2 [facility] Glucose [Mass/Vol] 86 mg/dL 74-106 [facility] Potassium [Moles/Vol] 3.6 mmol/L 3.5-5.1 [facility] Protein [Mass/Vol] 7.4 g/dL 6.4-8.2 [facility] Sodium [Moles/Vol] 140 mmol/L 136-145 [facility] Triglyceride [Mass/Vol] 165 mg/dL High <=150 [facility] Urea nitrogen [Mass/Vol] 16.0 mg/dL 7.0-18.0 [facility] Urea nitrogen/Creatinine [Mass ratio] 15.7 mg/mg [facility] Laboratory - Hematology and Cell countson 04-30-2024 Immature granulocytes/100 WBC (Bld) 0.1 % 0.0-0.5 [facility] Leukocytes [#/volume] correc souleymane for nucleated erythrocytes in Blood by Automated counon 04-30-2024 WBC corrected for nucl RBC Auto (Bld) [#/Vol] Leukocytes [#/volume] corrected for nucleated erythrocytes in Blood by Automated coun 4.0-11.0 [facility] Lymphocytes Auto (Bld) [#/Vo l]on 04-30-2024 Lymphocytes (Bld) [#/Vol] Lymphocytes [#/volume] in Blood by Automated count 1.2-3.8 [facility] Lymphocytes/100 WBC Auto (Bl d)on 04-30-2024 Lymphocytes/100 WBC (Bld) Lymphocytes/100 leukocytes in Blood by Automated count 20.5-60.0 [facility] MCH Auto (RBC) [Entitic mass ]on 04-30-2024 MCH (RBC) [Entitic mass] MCH [Entitic mass] by Automated count 26.7-34.0 [facility] MCHC Auto (RBC) [Mass/Vol]on 04-30-2024 MCHC (RBC) [Mass/Vol] MCHC [Mass/volume] by Automated count 29.9-35.2 [facility] MCV Auto (RBC) [Entitic vol] on 04-30-2024 MCV (RBC) [Entitic vol] MCV [Entitic volume] by Automated count 81.0-99.0 [facility] Monocytes Auto (Bld) [#/Vol] on 04-30-2024 Monocytes (Bld) [#/Vol] Automated blood monocyte count 0.3-0.8 [facility] Monocytes/100 WBC Auto (Bld) on 04-30-2024 Monocytes/100 WBC (Bld) Automated monocyte % 1.7-12.0 [facility] Neutrophils Auto (Bld) [#/Vo l]on 04-30-2024 Neutrophils (Bld) [#/Vol] Neutrophils [#/volume] in Blood by Automated count 1.4-6.5 [facility] Neutrophils/100 WBC Auto (Bl d)on 04-30-2024 Neutrophils/100 WBC (Bld) Automated neutrophil % 43.0-75.0 [facility] No Panel Informationon 04-30 Eosinophils # (Auto) 0.1 10 3/uL 0.0-0.7 [facility] Immature Granulocyte # (Auto) 0.01 10 3/uL 0.00-0.03 [facility] Platelet mean volume Auto (B ld) [Entitic vol]on 04-30-2024 Platelet mean volume (Bld) [Entitic vol] Platelet mean volume [Entitic volume] in Blood by Automated count 9.5-13.5 [facility] Platelets Auto (Bld) [#/Vol] on 04-30-2024 Platelets (Bld) [#/Vol] Platelets [#/volume] in Blood by Automated count 150-450 [facility] RBC Auto (Bld) [#/Vol]on RBC (Bld) [#/Vol] Erythrocytes [#/volume] in Blood by Automated count 4.20-5.40 [facility] Serum or plasma albumin/glob ulin mass ratioon 04-30-2024 Albumin/Globulin [Mass ratio] Serum or plasma albumin/globulin mass ratio [facility] Serum or plasma anion gap de terminationon 04-30-2024 Anion gap [Moles/Vol] Serum or plasma an ion gap determination [facility] Serum or plasma total choles terol/high density lipoprotein (HDL) cholesterol mass lucie 04-30-2024 Cholesterol.total/Cho lesterol in HDL [Mass ratio] Serum or plasma total cholesterol/high density lipoprotein (HDL) cholesterol mass rat [facility] Comment on above: 3.3 - 4.4 [...] mGy = na DAP = na Normal [facility] Consent for Treatmenton 07-31 Consent for Treatment [id number] .00TIFF Normal [facility] Physician Orderon 08-14-2023 Physician Order [id number]# 1.00TIFF Normal [facility] XR ANKLE RT MIN 3 [...] by: Santy RO Date: 2021-12-31 22:43 Normal [facility] CT NECK ST W CONon 2 [...] by: LIZANDRO DELACRUZ Date: 2021-09-13 17:01 Normal [facility] XR HIP LT 2 3V W [...] by: SANNA HOOD Date: 2021-04-18 11:23 Normal [facility] Vital Signs Date Time Vital Sign Value Performing Clinician Bushra sanchez 08-04-2024 13:04-0400 Body height 165.1 cm Penelope Garcia APRN Work Phone: [facility] 08-04-2024 13:04-0400 Body mass index (BMI) [Ratio] 31.9 kg/m2 Penelope Garcia APRN Work Phone: [facility] 08-04-2024 13:04-0400 Body temperature 96.7 [degF] Penelope Garcia APRN Work Phone: [facility] 08-04-2024 13:04-0400 Body weight 87.08 kg Penelope Garcia GR[employer]ING [employer]ISHING LABORER Work Phone: [facility] 08-04-2024 13:04-0400 Heart rate 77 /min Penelope Garcia [employer] LABORER Work Phone: [facility] 08-04-2024 13:04-0400 SaO2% (BldA) [Mass fraction] 99 % Penelope Garcia [employer] LABORER Work Phone: [facility] 04-29-2024 12:59-0500 Body height 165.1 cm [facility] 04-29-2024 12:59-0500 Body temperature 98.4 [degF] [facility] 04-29-2024 12:59-0500 Diastolic blood pressure 72 mm[Hg] [facility] 04-29-2024 12:59-0500 Heart rate 80 /min [facility] 04-29-2024 12:59-0500 SaO2% (BldA) [Mass fraction] 99 % [facility] 04-29-2024 12:59-0500 Systolic blood pressure 116 mm[Hg] [facility] 02-01-2024 09:28-0400 Body height 165.1 cm [facility] 02-01-2024 09:28-0400 Body mass index (BMI) [Ratio] 30.9 kg/m2 [facility] 02-01-2024 09:28-0400 Body temperature 96.8 [degF] [facility] 02-01-2024 09:28-0400 Body weight 84.48 kg [facility] 02-01-2024 09:28-0400 Diastolic blood pressure 76 mm[Hg] [facility] 02-01-2024 09:28-0400 Heart rate 70 /min [facility] 02-01-2024 09:28-0400 SaO2% (BldA) [Mass fraction] 98 % [facility] 02-01-2024 09:28-0400 Systolic blood pressure 124 mm[Hg] [facility] 09-27-2023 13:58-0400 Body height 165.1 cm [facility] 09-27-2023 13:58-0400 Body mass index (BMI) [Ratio] 30.4 kg/m2 [facility] 09-27-2023 13:58-0400 Body weight 83.06 kg [facility] 09-27-2023 13:58-0400 Diastolic blood pressure 76 mm[Hg] [facility] 09-27-2023 13:58-0400 Heart rate 70 /min [facility] 09-27-2023 13:58-0400 Respiratory rate 12 /min [facility] 09-27-2023 13:58-0400 Systolic blood pressure 122 mm[Hg] [facility] 08-06-2023 15:26-0400 Body height 165.1 cm [facility] 08-06-2023 15:26-0400 Body mass index (BMI) [Ratio] 29.7 kg/m2 [facility] 08-06-2023 15:26-0400 Body temperature 97.5 [degF] [facility] 08-06-2023 15:26-0400 Body weight 81.19 kg [facility] 08-06-2023 15:26-0400 Diastolic blood pressure 74 mm[Hg] [facility] 08-06-2023 15:26-0400 Heart rate 71 /min [facility] 08-06-2023 15:26-0400 Respiratory rate 18 /min [facility] 08-06-2023 15:26-0400 SaO2% (BldA) [Mass fraction] 98 % [facility] 08-06-2023 15:26-0400 Systolic blood pressure 110 mm[Hg] [facility] 06-20-2023 14:49-0400 Body height 165.1 cm [facility] 06-20-2023 14:49-0400 Body mass index (BMI) [Ratio] 29.7 kg/m2 [facility] 06-20-2023 14:49-0400 Body weight 81.19 kg [facility] 06-20-2023 14:49-0400 Diastolic blood pressure 80 mm[Hg] [facility] 06-20-2023 14:49-0400 Heart rate 78 /min [facility] 06-20-2023 14:49-0400 SaO2% (BldA) [Mass fraction] 98 % [facility] 06-20-2023 14:49-0400 Systolic blood pressure 116 mm[Hg] [facility] Encounters Encounter Date Encounter Type Care Provider Facility Start: 08-04-2024 End: 08-04-2024 ambulatory Penelope Garcia APRN Work Phone: [facility] Work Phone: Start: 08-04-2024 End: 08-04-2024 Patient encounter procedure [facility] Start: 07-28-2024 End: 07-28-2024 ambulatory Andrius Patric Plattitis Facility:[facility] Start: 06-23-2024 End: 06-23-2024 ambulatory Andrius Orionytjefferson Plattitis Facility:[facility] Start: 05-26-2024 End: 05-26-2024 ambulatory Andjennifer Plattitis Facility:[facility] Start: 05-12-2024 End: 05-12-2024 Patient encounter procedure Penelope Garcia APRN Work Phone: [facility] [place] Work Phone: Start: 05-12-2024 End: 05-12-2024 ambulatory Penelope Garcia APRN Work Phone: [facility] Work Phone: Start: 04-30-2024 Non-patient / Non-visit Ruthie Garcia APRN Work Phone: [facility] Work Phone: Start: 04-29-2024 Patient encounter status [facility] Start: 04-29-2024 End: 04-29-2024 ambulatory [facility] Work Phone: Start: 04-29-2024 End: 04-29-2024 Encounter for general adult medical examination without abnormal findings [facility] Start: 04-29-2024 End: 04-29-2024 Patient encounter procedure [facility] Work Phone: Start: 04-28-2024 End: 04-28-2024 ambulatory Katie Lipscomb MD Facility: [facility] Start: 04-22-2024 Non-patient / Non-visit [facility] Work Phone: Start: 03-10-2024 End: 03-10-2024 ambulatory Katie Lipscomb MD Facility: [facility] Start: 02-11-2024 End: 02-11-2024 ambulatory Katie Lipscomb MD Facility: [facility] Start: 02-01-2024 End: 02-01-2024 ambulatory [facility] Work Phone: Start: 02-01-2024 End: 02-01-2024 Patient encounter procedure [facility] Work Phone: Start: 09-27-2023 End: 09-27-2023 ambulatory [facility] Work Phone: Start: 09-27-2023 End: 09-27-2023 Patient encounter procedure [facility] Work Phone: Start: 08-14-2023 End: 08-15-2023 ambulatory PENELOPE GARCIA Facility:[facility] Start: 08-14-2023 End: 08-14-2023 Patient encounter procedure PENELOPE GARCIA [facility] Start: 08-06-2023 End: 08-06-2023 ambulatory [facility] Work Phone: Start: 08-06-2023 End: 08-06-2023 Patient encounter procedure [facility] Work Phone: Start: 06-20-2023 End: 06-20-2023 ambulatory [facility] Work Phone: Start: 06-20-2023 End: 06-20-2023 Patient encounter procedure [facility] Work Phone: Start: 06-06-2023 End: 06-06-2023 ambulatory CASH DANIEL Not Available Start: 05-23-2023 End: 05-23-2023 ambulatory CASH DANIEL Not Available Start: 04-16-2023 End: 04-17-2023 ambulatory SHONDA PORTER Not Available Start: 04-13-2023 End: 04-13-2023 ambulatory SHANEL STARK Not Available Start: 04-11-2023 End: 04-11-2023 ambulatory VERNELL MIGUELANNE MARIE Not Available Start: 04-06-2023 End: 04-07-2023 ambulatory VERNELLLINN SMALLWOOD Not Available Start: 04-04-2023 End: 04-04-2023 [...] Facility:[facility] Start: 04-07-2021 End: 04-07-[address] PETERSON [facility] Facility:[facility]1 Procedures Date Procedure Procedure Detail Performing Clinician Start: 05-12-2024 Ultrasonography of right kidney Penelope Jose SCHULTZ Work Phone: H/O: hysterectomy History of hysterectomy History of decompres fly of median nerve History of carpal tunnel surgery of right wrist Ligation of fallopian tube J DONNA JOSE right forearm PENELOPE MARYLOU DORAN Plan of Treatment Date Care Activity Detail Author Start: 04-29-2024 Patient referral [facility] Work Phone: Start: 02-01-2024 Patient referral [facility] Work Phone: Start: 06-20-2023 Patient referral [facility] Work Phone: Comprehensive metabo lic 2000 panel - Serum or Plasma [facility] DXA Skeletal system. axial Views for bone density [facility] Patient Education Low back pain in adults [facility] Work Phone: Patient referral [facility] Work Phone: US Heart Transthoracic [facility] US Kidney - bilateral [facility] Payers Date Payer Category Payer Self-pay 2023 Unknown 2017 Medicaid [id number] 1985 Unknown [id number] 2.16.84 0.1.776927.3.579.2.593 1986 Unknown [id number] 2.16.84 0.1.339156.3.579.2.593 1986 Unknown [id number] 2.16.84 0.1.970533.3.579.2.593 1986 Unknown [id number] 2.16.84 0.1.402790.3.579.2.593 1986 Unknown [id number] 2.16.84 0.1.821465.3.579.2.593 1986 Unknown [id number] 2.16.84 0.1.970488.3.579.2.1259 1986 Unknown [id number] 2.16.84 0.1.088519.3.579.2.1259 1986 Unknown [id number] 2.16.84 0.1.113864.3.579.2.1259 1986 Unknown [id number] 2.16.84 0.1.181756.3.579.2.1259 1986 Unknown [id number] 2.16.84 0.1.907613.3.579.2.1259 1986 Unknown [id number] 2.16.84 0.1.702001.3.579.2.1259 1986 Unknown [id number] 2.16.840 .1.476610.3.579.2.9 1986 Unknown [id number] 2.16.840 .1.219800.3.579.2.9 1986 Unknown [id number] 2.16.840 .1.537451.3.579.2.9 1986 Unknown [id number] 2.16.840 .1.773512.3.579.2.9 1986 Unknown [id number] 2.16.840 .1.412585.3.579.2.1258 1986 Unknown [id number] 2.16.8 40.1.994245.3.579.2.727 1986 Unknown [id number] 2.16. 840.1.883326.3.579.2. 1986 Unknown [id number] 2.16. 840.1.550399.3.579.2.196 1986 Unknown [id number] 2.16. 840.1.457415.3.579.2.196 1986 Unknown [id number] 2.16. 840.1.231402.3.579.2.196 1986 Unknown [id number] 2.16. 840.1.251321.3.579.2.196 1986 Unknown [id number] 2.16. 840.1.177378.3.579.2.196 1959 Unknown [id number] Medicaid [employer] [id number] Unknown [id number] 2.16.8 40.1.763350.3.579.2.531 Social History Date Type Detail Facility Start: 06-20-2023 Tobacco smoking stat [facility] Never smoked tobacco (finding) [facility] Start: 1985 Sex Assigned At Female F [facility] Tobacco smoking status [facility] Start: 02-01-2024 End: 02-01-2024 Tobacco smoking status [facility] Ex-smoker (finding) [facility] Start: 04-29-2024 End: 08-04-2024 Sex Female (finding) [facility] Clinical Notes 04-07-2021 to 05-12-2024 Note Date & Type Note Facility 05-12-2024 Radiology Diagnostic study note [facility] [place] [address] Ultrasound Report Signed Patient: Yanci Loco MR#: [id number] : 1985 Acct:[id number] Age/Sex: 38 / F ADM Date: 5 Loc: Room: Type: [facility] Attending Dr: Penelope Garcia APRN, NP-C Ordering [...] ultrasound. Impression dictated by: Mike Whitney Jr., Aguilar05/12/2024 4:24 PM Dictation Location: [place] [address] Tech: Vernell Del Rosariovincenzo Transcribed By: TANA 05/12/241623 Dictated By: Mike Whitney Jr, DO 05/12/241622 Signed By: 05/12/24 1624 [facility] 04-29-2024 Evaluation note Diagnosis Onset Date Resolution Family history of osteoporosis acute April 29 12:56pm History of hysterectomy acute J anuary 2024 12:56pm Kidney anomaly, congenital acute April 29 12:56pm Screening for osteoporosis acute April 29 12:56pm Sprain of right ankle acute Apr 12:56pm [facility] Work Phone: 1(115) 897-792711-01-2024 Evaluation note* Diagnosis Onset Date Resolution Status [...] Apr 12:56pm Wellness examination acute 2024 12:56pm [facility] Work Phone: 1(949) 534-726303-20-2024 Hospital Discharge instructionsAmbulatory Orders* Referral to Orthopedic Surgery Time Frame: 06/20/23, Location: None Selected [facility] Work Phone: 1(295) 189-720610-10-2022 NotePROCEDURE: XR ANKLE RT MIN 3 VIEWS HISTORY: Contusion of right ankle ; acute anterior right ankle pain since injury 16 days ago COMPARISON: XR ankle right 12/31/2021 FINDINGS: BONES:No fracture, acute abnormality, or significant arthropathy. SOFT TISSUES:No visible soft tissue swelling. EFFUSION:None visible. OTHER: Negative. IMPRESSION: 1. Normal examination. Electronically authenticated by: LIZANDRO DELACRUZ Date: 2022-01-09 16:12[facility] NotePROCEDURE: XR FEMUR LT COMPARISON: None. HISTORY: Unspecified fall FINDINGS: BONES:No fracture, acute abnormality, or significant arthropathy. SOFT TISSUES:Negative. No visible soft tissue swelling. EFFUSION:None visible. OTHER: Negative. IMPRESSION: No acute abnormality Electronically authenticated by: TEODORO WHITLEY Date: 2021-04-07 09:14[facility] No data available for this section [facility] Diagnosis Onset Date Resolution Status Anxiety acute Asthma acute Depression acute Irregular heart beat acute Maxillary sinusitis acute Scoliosis acute Trigger finger of right hand acute [facility] Work Phone: Evaluation note* Diagnosis Onset Date Resolution Status Anxiety acute Asthma acute Depression acute Irregular heart beat acute Maxillary sinusitis acute Scoliosis acute Trigger finger of right hand acute Congenital heart defect acut e Irregular heart beat acute Scoliosis acute [facility] Work Phone: Evaluation note* Diagnosis Onset Date Resolution Status Congenital heart defect acut e Deformity of right lower extremity acute Irregular heart beat acute Scoliosis acute Stress headaches acute Trigger finger of right hand acute Rash acute [facility] Work Phone: Evaluation note* Diagnosis Onset Date Resolution Status Anxiety acute Chronic lower back pain acut e Deformity of right lower extremity acute Depression acute GERD (gastroesophageal reflux disease) acute Stress headaches acute [facility] Work Phone: Evaluation note* Diagnosis Onset Date Resolution Status Admit Date Anxiety acute August 04, 2024 1:00pm Arthritis acute August 04, 2024 1:00pm Chronic lower back pain acute M ay 2024 1:00pm Deformity of right lower extremity a cute August 04, 2024 1:00pm Depression acute August 04, 2024 1:00pm GERD (gastroesophageal reflu x disease) acute August 04, 2024 1: 00pm Stress headaches acute August 04, 2024 1:00pm [facility] Work Phone: Hospital Discharge instructions No data available for this section [facility] Referral to Pain Management Time Frame: 02/01/24, Location: None [facility] Work Phone: Hospital Discharge instructionsAmbulatory Orders* Referral to Podiatry Time Frame: 04/29/24, Location: None [facility] Work Phone: Progress note No data available for this section [facility] Summary Purpose Family History No Family [...] 9:21am Deformity of right lower extremity Novem marylu 2023 9:21am Depression February 01, 2024 9 :21am GERD (gastroesophageal reflux disease) N ovember 2023 9:21am Stress headaches February 01, 2024 9 [...] f/u right foot injury April 29 12:56pm Q63.9 May 12, 2024 1:46pm Reason for Visit Admit Date Family history of osteoporosis April 032024 12:56pm History of hysterectomy April 29 12:56pm Kidney anomaly, congenital April 29, 2024 12:56pm Screening for osteoporosis April 29, 2024 12:56pm Sprain of right ankle April 29, 2024 12:56pm Chief Complaint Admit Date Q63.9 May 12, 2024 1:46pm 6 month f/u August 04, 2024 1:00pm Reason for Visit Admit Date Anxiety August 04, 2024 1:00pm Arthritis August 04, 2024 1:00pm Chronic lower back pain August 04, 2024 1: 00pm Deformity of right lower extremity August 042024 1:00pm Depression August 04, 2024 1:00pm GERD (gastroesophageal reflux disease) M ay 2024 1:00pm Stress headaches August 04, 2024 1:00pm Additional Source Comments INFORMATION SOURCE (unrecogn ized section and content) DATE CREATED AUTHOR 01/10/2022 [facility] DATE CREATED AUTHOR AUTHOR'S ORGANIZ ATION 06/07/2023 [facility] EPIC DATE CREATED AUTHOR AUTHOR'S ORGANIZ ATION 08/16/2023 [facility] DATE CREATED AUTHOR AUTHOR'S ORGANIZ ATION 05/19/2024 [facility] DATE CREATED AUTHOR AUTHOR'S ORGANIZ ATION 08/10/2024 [facility] Care Teams (unrecognized sec tion and content) Team Status: Active Member Role Status Dates Penelope Garcia APRN [employer] WORK[employer]-C Primary Care Provider Active Team Status: Inactive Member Role Status Dates Penelope Garcia APRN [employer] WORKER-C Primary Care Provider, Attending Provider Active Start: June 20, 2023 End: June 20, 2023 Team Status: Inactive Member Role Status Dates Penelope Garcia APRN [employer] WORKER-C Primary Care Provider, Attending Provider Active Start: August 06, 2023 End: August 06, 2023 Team Status: Inactive Member Role Status Dates Penelope Garcia APRN [employer] WORKER-C Primary Care Provider, Attending Provider Active Start: September 27, 2023 End: September 27, 2023 Team Status: Inactive Member Role Status Dates Penelope Garcia APRN [employer] WORKER-C Primary Care Provider, Attending Provider Active Start: February 01, 2024 End: February 01, 2024 Team Status: Active Member Role Status Dates Penelope Garcia APRN [employer] WORKER-C Primary Care Provider Active Start: April Khadijah Corbin CMA Attending Provider Active Start: April 22, 2024 Team Status: Inactive Member Role Status Dates Penelope Garcia APRN [employer] WORKER-C Primary Care Provider, Attending Provider Active Start: April 29, 2024 End: April 29, 2024 Team Status: Active Member Role Status Dates Penelope Garcia APRN [employer] WORKER-C Primary Care Provider, Attending Provider Active Start: April 30, 2024 Team Status: Inactive Member Role Status Dates Penelope Garcia APRN [employer] WORKER-C Primary Care Provider, Attending Provider Active Start: May 12, 2024 End: May 12, 2024 Team Status: Inactive Member Role Status Dates Penelope Garcia APRN [employer] WORKER-C Primary Care Provider, Attending Provider Active Start: August 04, 2024 End: August 04, 2024 Goals (unrecognized section and content) Goals [...] BE BASED ON THE PRIMARY CLINICAL RECORDS. [facility] [employer] [facility]. provides no warranty or guarantee of the accuracy or completeness of information in this document.
--- NOTE | 2024-08-14 11:58 | P.CN_ITS ---
Consult Note: HPI Data of Consult Patient: known to practice within the last 3 years Requesting Physician: Anna Stroud NP Primary Care Provider: KARIN MALONE Family Provider: CASH DANIEL Consult Narrative Reason for consult: f/u Narrative: Yanci Loco a 38 year old female presents for evaluation and management of chronic back pain. pt has failed heat, ice, tylenol, NSAIDs, and 6 weeks of PT/HEP for neck and low back pain . Pain in low back 3-4/10 increasing to 8/10 with standing, walking, lifting, pushing, pulling, bending, and sleep. previous lumbar MRI shows bulging disc at L4-5 and L5-S1 as well as lumbar spondylosis. pt recently underwent bilateral L4-5 L5-S1 MBB #1 and #2with >80% improvement immediately following and 1 day after, preop pain up to 8/10 post op pain 0/10. cc:: CC: Anna Stroud NP Review of Systems ROS Status of ROS 10 or more systems reviewed and unremark able except as noted in history and below Musculoskeletal Reports: back pain and extremity pain PFSH PFSH Medical History Osteoarthritis ?M19.90 - Unspecified osteoarthritis, unspecified site (ICD-10) Carpal tunnel syndrome ?G56.00 - Carpal tunnel syndrome, unspecified upper limb (ICD-10) Acid reflux ?K21.9 - Gastro-esophageal reflux disease without esophagitis (ICD-10) Asthma ?J45.909 - Unspecified asthma, uncomplicated (ICD-10) Heart murmur ?R01.1 - Cardiac murmur, unspecified (ICD-10) Irregular heartbeat ?I49.9 - Cardiac arrhythmia, unspecified (ICD-10) Surgical History History of carpal tunnel release ?Z98.890 - Other specified postprocedural states (ICD-10) History of hysterectomy ?Z90.710 - Acquired absence of both cervix and uterus (ICD-10) History of tubal ligation ?Z98.51 - Tubal ligation status (ICD-10) History of surgery on arm ?Z98.890 - Other specified postprocedural states (ICD-10) Social History Smoking status: Former smoker Little interest or pleasure in doing things: not at all Feeling down, depressed, or hopeless: not at all Meds Home Medications and Allergies Home Medications ?Medication ?Instructions ?Recorded ?Confirmed ?Type albuterol sulfate 90 mcg/actuation 2 puff inhalation Q 6H PRN wheezing 11/15/22 07/28/24 History aerosol inhaler ciclopirox 0.77 % topical cream 1 applic topical Q12H 11/15/22 07/28/24 History diclofenac sodium 1 % topical gel 2 g topical QID 10/3107/28/24 History ciclopirox 1 % shampoo 5 ml topical QWEEK 04/16/23 07/28/24 History epinephrine 0.3 mg/0.3 mL 0.3 mg (0.3 mL) IM ONCE PRN 10/01/23 07/28/24 Rx injection, auto-injector allergic reaction #2 ea famotidine 20 mg tablet (Pepcid) 20 mg PO BID #10 tabs 10/01/23 07/28/24 Rx tizanidine 4 mg capsule (Zanaflex) 2 mg (1/2 x 4 mg) P O Q8H PRN 12/24/23 07/28/24 Rx muscle spasticity #10 caps aripiprazole 2 mg tablet 2 mg PO DAILY 02/11/2407/28 History naproxen 250 mg tablet 250 mg PO Q12H PRN pain #14 tabs 04/21/24 07/28/24 Rx Allergies Allergy/AdvReac Type Severity Reaction Status Date / Time Penicillins Allergy Severe Rash Verified 07/28/24 08:21 tramadol Allergy Severe Swelling Verified 07/28/24 08:21 of Lip/Tongue/Throat bees AdvReac Mild sob Uncoded 04/28/24 07:40 Exam Constitutional Documenting provider has reviewed patient's vital signs: yes Common normals: no apparent distress, oriented x3, healthy appearing, alert and well nourished General appearance: cooperative [facility] Common normals: normocephalic, hearing grossly normal bilaterally and moist oral mucous membranes Head and scalp: normocephalic Eye Common normals: PERRL Pupil: PERRL Neck & C-Spine Common normals: full ROM General: normal visual inspection Cervical spine: no pain with cervical ROM and no cervical spine tenderness Other: negative spurlings strength 5/5 in BUE Chest Common normals: inspection of chest normal Respiratory Common normals: normal respiratory effort, no retractions and no use of accessory muscles Back & Pelvis Lumbar spine/lower back: ROM limited, pain with ROM, lumbar spinal tenderness, paraspinal muscle tenderness and straight leg raise negative bilaterally Other: strength 5/5 in BLE sensation intact BLE positive facet loading and tenderness L3-S1 Neuro Common normals: oriented x3, CN's II-XII intact bilaterally, moves all extremities, no focal motor deficits, no sensory deficits noted and deep tendon reflexes 2+ bilaterally Sensorium/orientation: alert Motor exam: no movement abnormalities noted Psych Common normals: mental status grossly normal, thought process normal, cooperative, affect normal, speech normal and activity/motor behavior normal Speech: normal speech Thought process: normal thought process Assessment and Plan Assessment and Plan (1) Lumbar spondylosis: Assessment and Plan: The patient has had over 3 months of moderate to severe low back pain with functional impairment and inadequate response to conservative care including NSAIDS (unless there are contraindication such as concurrent blood thinners), multiple oral or topical pain medications, and home exercise program/physical therapy.? Patient has completed >6 weeks of guided home exercise program and/or formal physical therapy program without relief of their symptoms.? I have reviewed the imaging of the lumbar spine and no red flags were identified.? The imaging reveals radiographic findings consistent with lumbar spondylosis The Oswestry Disability Index was completed, and the patient scored a 42%.? The patient noted the following:?? moderate to severe pain, pain with standing, walking, ADLs, sleep, impacting social life and travel We discussed the risks and benefits of the procedure with the patient, and we are NOT planning on using sedation as outlined in the guidelines from Medicare unless there is a documented reason that sedation would be strongly recommended.?? ?The procedure will be completed with fluoroscopic guidance.? (2) Lumbar stenosis with neurogenic claudication: Plan bilateral L4-5 L5-S1 medial branch RFA for axial facet mediated low back pain continue current medications f/u 1 month after RFA
== END 2024-08-14 11:40 | disposition home or self-care (01) ==
LOC: PM 11:39
PROVIDERS: Family Provider Physician Assistant; PCP Nurse Practitioner Family; Visit Provider Nurse Practitioner
DX: M47.816 Spondylosis without myelopathy or radiculopathy, lumbar region (principal); M48.062 Spinal stenosis, lumbar region with neurogenic claudication
CPT/HCPCS: G0463

== ENCOUNTER 2024-09-08 07:30 | Day surgery (SDC) | payer OTHER, SELFPAY ==
--- OUTSIDE RECORDS SUMMARY | 2023-04-24 10:30 | XMS_ITS | Continuity of Care Document ---
Author Organization [facility] Address [address] [place] [address] Phone Care Team Providers Care Analysis Engineer Name Role Phone Ayo Jackson DDS Unavailable [...] Visit Dental Nutrit Couns For Control Of [place] Dis Dec Extract; Erupted Th/exposted Rt 023 Limited Oral Eval Oral Hygiene Instruction Nutrit Couns For Control Of [place] Dis July Extract; Erupted Th/exposted Rt Extract; Erupted Th/exposted Rt 022 Intraoral-periapical 1st Film 1 [id number] Additional Jan Limited Oral Eval Oral Hygiene Instruction Intraoral-periapical 1st Film 1 [id number] Additional May [id number] Additional May Limited Oral Eval Limited Oral Eval Oral Hygiene Instruction Intraoral-periapical 1st Film 0 PPE Prophylaxis Adult Oral Hygiene Instruction Prophylaxis Adult Oral Hygiene Instruction Intraoral-complete Series (bw) 19 Comp Oral Eval New/estab Patient 2018 Advance Directives Directive Yes / No Effective Date File Name No Information Encounters Encounter Description Practice Location Reason(s) For Visit Diagnoses Date Provider Providers Copied on Encounter [facility], [address] [place] [address], [id number], [place] tel:[phone] Dental Clinic pe (chief complaint) Encounter for screening for dental disordersBody mass index [BMI] 27.0-27.9, adult 4 [facility] [address] [place] [address], [id number], [place]. tel:[phone] [facility], [address] [place] [address], [id number], [place] tel:[phone] Dental Clinic pov (chief complaint) Encounter for screening for dental disorders 3 Enrike George. [address] [place] [address], [id number], [place]. tel:[phone] [facility], [address] [place] [address], [id number], [place] tel:[phone] Dental Clinic cons (chief complaint) Encounter for screening for dental disorders 3 [facility] Victor Manuel. [address], [place], [id number], [place]. tel:[phone] [facility], [address], [place], [id number], [place] tel:[phone] Dental Clinic PE (chief complaint) Encounter for screening for dental disorders 3 Enrike George. [address] [place], [place], [id number], [place]. tel:[phone] [facility], [address], [place], [id number], [place] tel:[phone] Dental Clinic EXT (chief complaint) Encounter for screening for dental disorders 2 [facility] Victor Manuel. [address] [place], [place], [id number], [place]. tel:[phone] [facility], [address], [place], [id number], [place] tel:[phone] Dental Clinic D EMg (chief complaint) Encounter for screening for dental disorders 1 Porter [facility] Solo. [address] [place], [address], [place]. tel:[phone] [facility], [address] [place] [address], [id number], [place] tel:[phone] Dental Clinic dental EMERGENCY (chief complaint)d ental EMERGENCY (chief complaint) Encounter for screening for dental disorder 1 Sabas Saravia. [address] [place], [place], [id number], [place]. tel:[phone] [facility], [address], [place], [id number], [place] tel:[phone] Dental Clinic ER (chief complaint) Encounter for screening for dental disorder 0 Osman [facility] Tejas. [address], [place], [id number], [place]. tel:[phone] [facility], [address], [place], [id number], [place] tel:[phone] Dental Clinic Encounter for screening for dental disorders 0 [facility] [address], [place], [id number], [place]. tel:[phone] [facility], [address] [place] [address], [id number], tel:[phone] Dental Clinic Encounter for screening for dental disorders 9 [facility]. [address], [place], [id number], [place]. tel:[phone] [facility], [address] [place] [address], [id number], tel:[phone] Dental Clinic Dental New (chief complaint) Encounter for screening for dental disorders 9 [facility]. [address] [place] [address], [id number], [place]. tel:[phone] Family History Family Member Type Diagnosis Age At Onset No Information Payers Payer name Insurance type Covered green party ID Authorkaya solange(s) D [employer] [facility] [id number] D Medicaid [facility] [id number] Social History Type Description Quantity Date Captured [...] Of Treatment Date Type Action Status Goal Tdap. Due on due Goal Influenza vaccine. Due on Ja due Goal Unhealthy drug use screening . Due on due Goal RLP. Due on due Goal Tdap Vaccine. Due on 2023 due Goal HPV. Due on due Goal Depression screening. Due on due Goal Hepatitis C screening. Due o n due Goal PRAPARE ASSESSMENT. Due on J due Goal Dietary management education , guidance, [...] due Goal HPV. Due on due Goal Depression screening. Due on due Goal Tdap Vaccine. Due on 2022 due Goal RLP. Due on due Goal Influenza vaccine. Due on Au due Goal Tdap. Due on due Goal PRAPARE ASSESSMENT. Due on A due Goal Hep A. Due on du e History Of Present Illness Encounter Date Complaint [...] Information Instructions Date Instruction Additional Infor cody Dietary management e ducation, guidance, and counseling Related to Body mass index [BMI] 27.0-27.9, adult Giving encouragement to exercise Related to Body mass index [BMI] 27.0-27.9, adult Assessments Type Assessment Date assessment Encounter for screening for dent al disorders assessment Body mass index [BMI] 27.0-27.9, adult Patient Care Teams Name Effective Dates (start - stop) Status Members No Information
--- OUTSIDE RECORDS SUMMARY | 2023-07-02 05:10 | XMS_ITS ---
Author Organization [facility] Address [address] [place] [place] [address] Care Team Providers Care Automatic Centrifugal Station Operator Name Role Phone MorrisonOzzy heard [facility] [phone] Allergies Allergen (clinical drug ingredient) Drug/Non Drug Allergy documented on EMR Reaction Allergy Type Onset Date Status bees (uncoded) Unknown Allergy Activ e penicillin (uncoded) Unknown Allergy Active Pertussis Vaccine pertussis vaccine (uncoded) Unknown Allergy Active Spinach spinach (uncoded) Unknown Allergy Ac tive prednisone predniSONE Unknown Drug Allergy Activ e Results Component Value Reference Range Notes SCC- OT EVAL AND TREAT 3X/WE EK FOR 6 WEEKS Reviewed date:08/08/2023 10:31:51 AM Interpretation: Performing Lab: Notes/Report: SCC- HAND 3 VIEW RIGHT 13723 Reviewed date:08/08/2023 10:31:36 AM Interpretation: Performing Lab: Notes/Report: REASON FOR VISIT RIGHT HAND TRIGGER FINGERS Medications Medication SIG (Take, Route, Fr equency, Duration) Notes Start Date End Date Status Medrol Dosepak 4 mg as directed 07/02/2023 Active EpiPen 2-Dominick Active albuterol Active Social History Tobacco Use: Social History Observation Description Date Details (start date - stop date) Never Smoker NA - NA AUDIT-C (Standard) Question Answer Notes Did you have a drink containing alcohol in the p ast year? No Points 0 Interpretation Negative Tobacco Control (Standard) Question Answer Notes Tobacco use: Nonsmoker Vital Signs Height 5'5 in 07/02/2023 Weight 179 lbs 07/02/2023 BMI 29.78 07/02/2023 Encounters Encounter Location Date Provider Diagnosis [facility] Office [address] [place] [address] [address] [place] [address] 07/02/2023 Ozzy Morrison Trigger finger, right ring finger M65.341 ; Trigger finger, right middle finger M65.331 and Trigger finger, right little finger M65.351 Assessments Encounter Date Diagnosis (ICD Code) Assessment Notes Treatment Notes Treatment Clinical Notes Section Notes 07/02/2023 Trigger finger, right ring finger (ICD-10 - M65.341) 07/02/2023 Trigger finger, right middle finger (ICD-10 - M65.331) 07/02/2023 Trigger finger, right little finger (ICD-10 - M65.351) 07/02/2023 Other For her right hand contractures I recommended Medrol Dosepak and hand therapy. Given these have been contracted for 2 months if they were potentially trigger fingers that at this point would expect her to have contractures as well. Will follow-up in 2 months to reassess her progress. Import medication Plan Of Treatment Medication Medication Name Sig Start Date Stop Date Notes Medrol Dosepak 4 mg as directed 07/02/2023 Treatment Notes Assessment Notes Other For her right hand contractures I recommended Medrol Dosepak and hand therapy. Given these have been contracted for 2 months if they were potentially trigger fingers that at this point would expect her to have contractures as well. Will follow-up in 2 months to reassess her progress. Import medication Next Appt Details Follow Up: 3 Weeks, Reason: Progress Notes * DEBORAH ESPINOZA ADOB:[birth year] (38 yo F)Acc No.[id number]:07/02/2023 Patient: DEBORAH MICHEL Provider: Noah Morrison MD :1985 A ge:38 Y S ex:Female Date:07/02/2023 Address:[address] [place], [place] [id number] Subjective: * Chief Complaints: * R IGHT HAND TRIGGER FINGERS * HPI: G eneral Follow Up Information: Patient presents today for her right hand. She reports 2 months ago she woke up and her small, ring, and long fingers were flexed has not been able to open them up s shivam. Reports associated with pain. She reports years ago she had been treated nonoperatively for trigger finger with an injection. She reports no recent associate injections. She reports her right hand is numb but she had a carpal tunnel release years ago which was not successful and has continued to have numbness since that time. G eneral Info per Patient Report: Have you seen another doctor in this practice? N o. S maria [place] carmen affected is R ight. J oint or body part affected is w rist/hand. W ork related:?No. M otor vehicle accident: N o. T hird republican responsibility: N o. Q uality of pain is m oderate. T ype of pain: s harp. H ave you been seen by a Dentist in the last year? Y es. D o you have any dental problems? Y es. * ROS: G astrointestinal: Ulcer/Reflux Y es. M usculoskeletal: Joint stiffness Y es. * Medical History: * Surgical History: R ight wrist/forearm Hysterectomy Left shoulder * Family History: N o Family History documented.. * Social History: E xercise regularly D o you exercise? N o. W hat is your place of residence? W here do you live? P rivate home. A EZRA-C (Standard) D id you have a drink containing alcohol in the past year? N o, P oints 0 , I nterpretation N egative. T obacco Control (Standard) T obacco use: N onsmoker. * Medications: T akingEpiPen 2-Dominick albuterol Medication List reviewed and reconciled with the patientTaking EpiPen 2-Dominick Taking albuterol Medication List reviewed and reconciled with the patient * Allergies: b eespenicillinspinachpredniSONEpertussis vaccineno[Allergies Verified] Objective: * Vitals: H t: 5'5 , Wt: 179 lbs, BMI:29.78. * Examination: G eneral examination: O n exam today she is in no obvious distress. Small, ring, and long f ingers are flexed to her palm and passively these extended so they are about 1 cm off of her palm but with significant resistance. No obvious palpable nodule identified on exam today. Good capillary refill she reports no sensation to light touch. X -ray Imaging Studies: M RI Imaging Studies: Assessment: * Assessment: 1. T gun synchronizer finger, right ring finger - M65.341 (Primary) 2 . T gun synchronizer finger, right middle finger - M65.331 3 . T gun synchronizer finger, right little finger - M65.351 Plan: * Treatment: 2. T gun synchronizer finger, right middle finger L AB: SCC- OT EVAL AND TREAT 3X/WEEK FOR 6 WEEKS (Collection Date & Time - 08/08/2023) 3. T gun synchronizer finger, right little finger L AB: SCC- OT EVAL AND TREAT 3X/WEEK FOR 6 WEEKS (Collection Date & Time - 08/08/2023) 4. O thers I maging: SCC- HAND 3 VIEW RIGHT [id number] (Performed Date - 08/08/2023) Notes: For her right hand contractures I recommended Medrol Dosepak and hand therapy. Given these have been contracted for 2 months if they were potentially trigger fingers that at this point would expect her to have contractures as well. Will follow-up in 2 months to reassess her progress. Import medication * Procedure Codes: * Follow Up: 3 Weeks Forms: * Images: * Sign off status: Completed true * Provider: Noah Morrison MD Date: 0 07/02/2023 Generated for Saira tian/Unruly/Kierasmitting on: 0 09/08/2024 07:33 AM EDT History and Physical Notes * HPI (History of Present Illness) Category Sub-Category Detail Notes Category Not es General Follow Up Information Patient presents tod ay for her right hand. She reports 2 months ago she woke up and her small, ring, and long fingers were flexed has not been able to open them up since. Reports associated with pain. She reports years ago she had been treated nonoperatively for trigger finger with an injection. She reports no recent associate injections. She reports her right hand is numb but she had a carpal tunnel release years ago which was not successful and has continued to have numbness since that time. General Info per Patient Report Side affected is Right Joint or body part affected is wrist/byrd d Work related: No Motor vehicle accident: No Quality of pain is moderate Type of pain: sharp Have you seen another doctor in this pra ctice? No Third republican responsibility: No Have you been seen by a Dentist in the l ast year? Yes Do you have any dental problems? Yes Examination Category Sub-Category Detail Notes Category Not es General examination On exam today she is in no obvious distress. Small, ring, and long fingers are flexed to her palm and passively these extended so they are about 1 cm off of her palm but with significant resistance. No obvious palpable nodule identified on exam today. Good capillary refill she reports no sensation to light touch. X-ray Imaging Studies MRI Imaging Studies
--- OUTSIDE RECORDS SUMMARY | 2023-07-23 05:40 | XMS_ITS ---
Author Organization [facility] Address [address] [place] [address] Care Team Providers Care Novelty Dipper Name Role Phone Ozzy Morrison [facility] [phone] Allergies Allergen (clinical drug ingredient) Drug/Non Drug Allergy documented on EMR Reaction Allergy Type Onset Date Status bees (uncoded) Unknown Allergy Activ e penicillin (uncoded) Unknown Allergy Active Pertussis Vaccine pertussis vaccine (uncoded) Unknown Allergy Active Spinach spinach (uncoded) Unknown Allergy Ac tive prednisone predniSONE Unknown Drug Allergy Activ e REASON FOR VISIT Right long, ring and small finger trigger finger Medications Medication SIG (Take, Route, Frequency, Duration) Notes Start Date End Date Status EpiPen 2-Dominick Active albuterol Active Social History Tobacco Use: Social History Observation Description Date Details (start date - stop date) Never Smoker NA - NA AUDIT-C (Standard) Question Answer Notes Did you have a drink containing alcohol in the p ast year? No Points 0 Interpretation Negative Tobacco Control (Standard) Question Answer Notes Tobacco use: Nonsmoker Vital Signs Height 5'5 in 07/23/2023 Weight 190 lbs 07/23/2023 BMI 31.61 07/23/2023 Encounters Encounter Location Date Provider Diagnosis [facility] [address] [place] [address] [place] [address] 07/23/2023 Ozzy Tamiko Trigger finger, right middle finger M65.331 ; Trigger finger, right ring finger M65.341 and Trigger finger, right little finger M65.351 Assessments Encounter Date Diagnosis (ICD Code) Assessment Notes Treatment Notes Treatment Clinical Notes Section Notes 07/23/2023 Trigger finger, right middle finger (ICD-10 - M65.331) 07/23/2023 Trigger finger, right ring finger (ICD-10 - M65.341) 07/23/2023 Trigger finger, right little finger (ICD-10 - M65.351) 07/23/2023 Other I have discussed the patient that her physical exam is significantly improved from her previous visit. She states that she still has significant pain and I have discussed the option of a corticosteroid injection which at this point she has declined. She would like to observe for now. She will follow-up in 4 weeks to reassess her progress. Import medication Plan Of Treatment Treatment Notes Assessment Notes Other I have discussed the patient that her physical exam is significantly improved from her previous visit. She states that she still has significant pain and I have discussed the option of a corticosteroid injection which at this point she has declined. She would like to observe for now. She will follow-up in 4 weeks to reassess her progress. Import medication Next Appt Details Follow Up: 4 Weeks, Reason: Progress Notes * DEBORAH ESPINOZA ADOB:[birth year] (38 yo F)Acc No.[id number]:07/23/2023 Patient: DEBORAH MICHEL A Provider: Noah Morrison MD :1985 A ge:38 Y S ex:Female Date:07/23/2023 Address:[address] [place], [place] [id number] Subjective: * Chief Complaints: * R ight long, ring and small finger trigger finger * HPI: G eneral Follow Up Information: Patient presents today for follow-up of her right small, ring, and long fingers. She reports with therapy and the oral steroid no improvement in symptoms. She reports she continues to have daily pain. * Medical History: * Surgical History: R [...] onsmoker. * Medications: T akingEpiPen 2-Dominick albuterol Taking EpiPen 2-Dominick Taking albuterol DiscontinuedMedrol Dosepak 4 mg tablet as directed Medication List reviewed and reconciled with the patientDiscontinued Medrol Dosepak 4 mg tablet as directed Medication List reviewed and reconciled with the patient * Allergies: b eespenicillinspinachpredniSONEpertussis vaccineno[Allergies Verified] Objective: * Vitals: H t: 5'5 , Wt: 190 lbs, BMI:31.61. * Examination: G eneral examination: O n exam today she is in no obvious distress. She has full active finger range of motion without any swelling. Mild tenderness along the A1 pulleys of the small ring and long fingers. No active triggering on exam today. X -ray Imaging Studies: M RI Imaging Studies: Assessment: * Assessment: 1. T paste worker finger, right middle finger - M65.331 (Primary) 2 . T paste worker finger, right ring finger - M65.341 3 . T paste worker finger, right little finger - M65.351 Plan: * Treatment: * Procedure Codes: * Follow Up: 4 Weeks Forms: * Images: * Sign off status: Completed true * Provider: Noah Morrison MD Date: 0 07/23/2023 Generated for Saira tian/Unruly/Aureitting on: 0 09/08/2024 07:33 AM EDT History and Physical Notes * HPI (History of Present Illness) Category Sub-Category Detail Notes Category Not es General Follow Up Information Patient presents tod ay for follow-up of her right small, ring, and long fingers. She reports with therapy and the oral steroid no improvement in symptoms. She reports she continues to have daily pain. Examination Category Sub-Category Detail Notes Category Not es General examination On exam today she is in no obvious distress. She has full active finger range of motion without any swelling. Mild tenderness along the A1 pulleys of the small ring and long fingers. No active triggering on exam today. X-ray Imaging Studies MRI Imaging Studies
--- OUTSIDE RECORDS SUMMARY | 2023-08-20 05:30 | XMS_ITS ---
Author Organization [facility] Address [address] [place] [address] Care Team Providers Care Director Of Property Management Name Role Phone Ozzy Morrison Unavailable [phone] Yisel Holder Unavailable [phone] REASON FOR VISIT Right long, ring, and [...] Nonsmoker Encounters Encounter Location Date Provider Diagnosis [facility] Office [address] [place] [address] 08/20/2023 Yisel Holder Trigger finger, right middle finger M65.331 ; [...] DEBORAH ESPINOZA ADOB:[birth year] (39 yo F)Acc No.[id number]:08/20/2023 Patient: DEBORAH MICHEL Provider: DEBORAH Rivas :1985 A ge:38 Y S ex:Female Date:08/20/2023 Address:[address] [place], [place] [id number] Subjective: * Chief Complaints: * 1 . [...] taken today. Assessment: * Assessment: 1. T crank hand finger, right middle finger - M65.331 (Primary) 2 . T crank hand finger, right ring finger - M65.341 3 . T crank hand finger, right little finger - M65.351 Trigger finger of right long , ring, and small fingers. Plan: * Treatment: * Follow Up: p rn Forms: * Images: * Electronic signature of Ryan Holder PA-C on 09/08/2024 at 07:33 AM EDT Sign off status: Pending * Provider: DEBORAH Rivas Date: 0 08/20/2023 Generated for Saira tian/Unruly/Kane on: 0 09/08/2024 07:33 AM EDT History [...] active triggering noted. X-ray Imaging Studies None dennis gonzales today.
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
--- OUTSIDE RECORDS SUMMARY | 2024-05-07 09:15 | XMS_ITS ---
Author Organization [facility] in [place] Address [address] [place] [address] Care Team Providers Care Laboratory Worker Name Role Phone Penelope Garcia CNP Primary Care Provider U bonibrigida Nii Carnes Unavailable [phone] Allergies Allergen (clinical drug ingredient) Drug/Non Drug Allergy documented on EMR Reaction Allergy Type Onset Date Status Vaccine product containing Bordetella pertussis antigen (medicinal product) vaccine for whooping cough (uncoded) Unknown Allergy Active predniSONE gastric reflux Drug Allergy A ctive Penicillin anaphylaxis Drug Allergy Acti ve Reason For Referral Reason Referral to [facility] PT Diagnosis 1 Sprain of other liga ment of right ankle, initial encounter (S93.923W) Referral Organization [facility] (PODIATRY) Referring Provider First Name Nii Referring [...] Notes Tobacco use: Nonsmoker Vital Signs Height 65 in 05/07/2024 Temperature 98.2 degrees Fahrenheit 05/07/19 25 Heart Rate 67 /min 05/07/2024 Oximetry 99 % 05/07/2024 Encounters Encounter Location Date Provider Diagnosis [facility] ([facility]) [address] [place] [address] [place] [address] 05/07/2024 Nii Carnes Sprain of other ligament [...] Referral Date Details 05/07/2024 05/07/2024, Referral to [facility] PT Progress Notes * Manisha LOCO:1985 (38 yo F)Acc No.[id number]:05/07/2024 Follow Up Patient: Yanci MICHEL Provider: Raymundo Carnes DPM, MS :1985 A ge:38 Y S ex:Female Date:05/07/2024 Address:[address] [place] [address], [id number] Pcp:Penelope Garcia, SUMA Check In:01:10 PM ESTCheck [...] DPM, MS Date: 0 05/07/2024 [facility]/eTransmitting on: 0 09/08/2024 07:32 AM EDT History and Physical Notes * [...] 05/07/2024 Nii Carnes , Referral t o [facility] PT
--- OUTSIDE RECORDS SUMMARY | 2024-06-04 09:00 | XMS_ITS ---
Author Organization The [facility] in [place] Address [address] [place] [address] Care Team Providers Care Hair Cutter Name Role Phone Penelope Garcia CNP Primary Care Provider U Nii Tong [facility] [phone] Allergies Allergen (clinical drug ingredient) Drug/Non Drug Allergy documented on EMR Reaction Allergy Type Onset Date Status Vaccine product containing Bordetella pertussis antigen (medicinal product) vaccine for whooping cough (uncoded) Unknown Allergy Active predniSONE gastric reflux Drug Allergy A ctive Penicillin anaphylaxis Drug Allergy Acti ve REASON FOR VISIT 4 week follow up after PT (moved appointment up, started PT on 03.19.25) Medications Medication SIG (Take, Route, Frequency, Duration) Notes Start Date End Date Status Ventolin HFA 108 (90 Base) MCG/ACT 1 puff as needed Inhalation every 4 hrs prn 09/27/2023 Active Ibuprofen 800 MG 1 tablet with food o r milk as needed Orally every 8 hrs prn 09/27/2023 Active EpiPen prn Active Social History Tobacco Use: Social History Observation Description Date Details (start date - stop date) Never Smoker NA - NA Tobacco Control (Standard) Question Answer Notes Tobacco use: Nonsmoker Vital Signs Weight 170 lbs 06/04/2024 Height 65 in 06/04/2024 Heart Rate 74 /min 06/04/2024 Respiratory Rate 16 /min 06/04/2024 BMI 28.29 kg/m2 06/04/2024 Oximetry 98 % 06/04/2024 Encounters Encounter Location Date Provider Diagnosis [facility] (PODIATRY) [address] [place] [address] [place] [address] 06/04/2024 Nii Carnes Contusion of right ankle, initial encounter S90.01XA and Sprain of other ligament of right ankle, initial encounter S93.491A Assessments Encounter Date Diagnosis (ICD Code) Assessment Notes Treatment Notes Treatment Clinical Notes Section Notes 06/04/2024 Contusion of right ankle, initial encounter (ICD-10 - S90.01XA) Patient returns for follow-up following inversion type ankle injury and is doing very well. She has no pain or limitation with activities of daily living or recreation. I have no restrictions for her and she may follow-up as needed 06/04/2024 Sprain of other ligament of right ankle, initial encounter (ICD-10 - S93.491A) Plan Of Treatment Treatment Notes Assessment Notes Contusion of right ankle, in itial encounter Patient returns for follow-up following inversion type ankle injury and is doing very well. She has no pain or limitation with activities of daily living or recreation. I have no restrictions for her and she may follow-up as needed Progress Notes * [place] LOCOB:1985 (38 yo F)Acc No.[id number]:06/04/2024 Follow Up Patient: Ana Lilia MICHELa Provider: Raymundo Carnes DPM, MS :1985 A ge:38 Y S ex:Female Date:06/04/2024 Address:[address] [place], [place] [id number] Pcp:Penelope Garcia CNP Check In:01:02 PM ESTCheck O ut:01:36 PM EST Subjective: * Chief Complaints: * 4 week follow up after PT (moved appointment up, started PT on 03.19.25) * HPI: G eneral: Patient in office today to follow up right ankle injury on 04-21-24. Patient was sitting down on the floor when she went to get up and rolled her ankle. She describes an inversion type injury. She did hear a snapping sound and started having pain in her medial ankle and 5th metatarsal. Pt reports no pain today to foot or ankle. She finished PT and reports great improvement. Overall doing well. * ROS: G eneral/Constitutional: Chills d enies. [...] M usculoskeletal: Bone/Joint Symptoms d enies. C correction Pain d enies.?Leg cramps d enies. N [...] use: N onsmoker * Medications: T akingEpiPen , Notes to Pharmacist: prnIbuprofen 800 MG Tablet 1 tablet with food or milk as needed Orally every 8 hrs , Notes to Pharmacist: prnVentolin HFA(Albuterol Sulfate HFA) 108 (90 Base) MCG/ACT Aerosol Solution 1 puff as needed Inhalation every 4 hrs , Notes to Pharmacist: prnMedication List reviewed and reconciled with the patientTaking EpiPen , Notes to Pharmacist: prnTaking Ibuprofen 800 MG Tablet 1 tablet with food or milk as needed Orally every 8 hrs , Notes to Pharmacist: prnTaking Ventolin HFA(Albuterol Sulfate HFA) 108 (90 Base) MCG/ACT Aerosol Solution 1 puff as needed Inhalation every 4 hrs , Notes to Pharmacist: prnMedication List reviewed and reconciled with the patient * Allergies: v accine for whooping coughpredniSONE: gastric reflux - AllergyPenicillin: anaphylaxis - Allergy - Criticality Highno[Allergies Verified] Objective: * Vitals: W t:170lbs, Ht: 65 in, HR:74/min, RR:16/min, BMI:28.29Index, Pain scale:01-10, Oxygen sat %:98%, Ht-cm: 165.1 cm, Wt-k.11 kg. * Examination: P odiatry Examination: SKIN: s kin intact, n o sign of infection. MUSCULOSKELETAL: N o pain to palpation, N o gross deformity, S trength equal & symmetric. NEUROLOGICAL: l ight touch sensation intact, n egative tinel's sign. VASCULAR: P edal pulses palpable, C apillary refill is brisk to toe, D igital hair intact. Assessment: * Assessment: 1. C ontusion of right ankle, initial encounter - S90.01XA (Primary) 2 . S prain of other ligament of right ankle, initial encounter - S93.491A Plan: * Treatment: * Procedure Codes: * * Sign off status: Completed Visit Status: C HK (Check Out) true * Provider: Raymundo Carnes DPM, MS Date: 06/04/2024 Generated for [facility] jaylan/Unruly/Kierasmitting on: 09/08/2024 07:32 AM EDT History and Physical Notes * HPI (History of Present Illness) Category Sub-Category Detail Notes Category Not es General Patient in offi ce today to follow up right ankle injury on 04-21-24. Patient was sitting down on the floor when she went to get up and rolled her ankle. She describes an inversion type injury. She did hear a snapping sound and started having pain in her medial ankle and 5th metatarsal. Pt reports no pain today to foot or ankle. She finished PT and reports great improvement. Overall doing well. Examination Category Sub-Category Detail Notes Category Not es Podiatry Examination SKIN: skin intact, no sign of infection MUSCULOSKELETAL: No pain to palpation , No gross deformity, Strength equal & symmetric NEUROLOGICAL: light touch sensatio n intact, negative tinel's sign VASCULAR: Pedal pulses palpabl e, Capillary refill is brisk to toe, Digital hair intact
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
--- OUTSIDE RECORDS SUMMARY | 2024-09-08 07:33 | XMS_ITS | Encounter Summary ---
Author Organization [facility] Address [address] [place] [address] Care Team Providers Care Pig Farmer Name Role Phone Cash Pollard Unavailable [phone] Penelope Garcia NP Primary Care Provider Ce Reyes MD Unavailable Encounter Details Date Type Department Care Team (Late Contact Info) Description 12/22/2022 Clinisync Result Encounter [facility] External Department Unsolicited Cash Pollard PA [address] [facility] [address] [place] [address] Social History Tobacco Use Types Packs/Day Years Used Date Smoking Tobacco: Former Cigarettes Q uit: 03/27/2022 Smokeless Tobacco: Never Comments:Last smoked : > 1 m ont Alcohol Use Standard Drinks/Week Comments Never 0 (1 standard drink = 0.6 oz pur e alcohol) Comments Unknown Sex and Gender Information Value Date Recorded Sex Assigned at Not on file Legal Sex Female 8:21 PM EDT Gender Identity Not on file Sexual Orientation Not on file documented as of this encounter Plan of Treatment Upcoming Encounters Date Type Department Care Team (Late Contact Info) Description 10/09/2024 1:05 PM EDT Office Visit [facility] [address] [facility] [address] [place] [address] Saige Hernandez MD [address] [facility] [address] [place] [address] documented as of this encounter Procedures Procedure Name Priority Date/Time Associated Diagnosis Comments XR FINGER LT MIN 2V 12/22/2022 1 :50 PM EDT documented in this encounter Results * XR FINGER LT MIN 2V (12/22/2022 1:50 PM EDT) Anatomical Region Laterality Modality Other 12/22/2022 1:50 PM EDT Narrative 12/22/2022 1:50 [place] [address] XRay Report Signed Patient: DEBORAH LOCO MR#: [id number] : 1985 Acct:[id number] Age/Sex: 37 / F ADM Date: 12/22/22 Loc: RAD Attending Dr: CASH POLLARD Ordering Physician: CASH POLLARD Date of Service: 12/22/22 Procedure(s): XR finger LT min 2V Accession Number(s): [id number] cc: CASH POLLARD [place] [id number] Patient Name: DEBORAH LOCO MRN: [id number] date: 1985 Sex: F Assigned Patient Location: [facility] Current Patient Location: [facility] Accession/Order Number: [id number] Exam Date: 12/22/2022 13:15 Report Date: 12/22/2022 13:50 At the request of: CASH POLLARD Procedure: XR finger LT min 2V EXAM: XR finger LT min 2V HISTORY: Finger Injury And Swelling COMPARISON: None. TECHNIQUE: 3 views of the left fifth digit. FINDINGS: There is no evidence of an acute fracture or dislocation. The visualized joint spaces are intact. Soft tissue swelling is noted. No radiopaque foreign body or free air is seen in the soft tissues. XR/XR finger LT min 2V IMPRESSION: No acute fracture or dislocation. No apparent osseous abnormality is identified. Focal soft tissue swelling is noted. Electronically authenticated by: NII QUARLES Date: 12/22/2022 13:50 Dictated By: Nii Quarles M.D. Signed By: 12/22/22 1352 DD/ 1350 TD/TT: Cardiovascular Lab Director: Procedure Note Radiology, Radiologist, - 12/22/[address] [address] XRay Report Signed Patient: DEBORAH LOCO [facility]R#: [id number] : 1985Acct:[id number] Age/Sex: 37 / FADM Date: 12/22/22 Loc: RAD Attending Dr: CASH POLLARD Ordering Physician: CASH POLLARD Date of Service: 12/22/22 Procedure(s): XR finger LT min 2V Accession Number(s): [id number] cc: CASH POLLARD [address] [address] Patient Name: DEBORAH LOCO MRN: [id number] date: 1985 Sex: F Assigned Patient Location: [facility] Current Patient Location: [facility] Accession/Order Number: [id number] Exam Date: 12/22/2022 13:15 Report Date: 12/22/2022 13:50 At the request of: CASH POLLARD Procedure: XR finger LT min 2V EXAM: XR finger LT min 2V HISTORY: Finger Injury And Swelling COMPARISON: None. TECHNIQUE: 3 views of the left fifth digit. FINDINGS: There is no evidence of an acute fracture or dislocation. The visualized joint spaces are intact. Soft tissue swelling is noted. No radiopaque foreign body or free air is seen in the soft tissues. XR/XR finger LT min 2V IMPRESSION: No acute fracture or dislocation. No apparent osseous abnormality is identified. Focal soft tissue swelling is noted. Electronically authenticated by: NII QUARLES Date: 12/22/2022 13:50 Dictated By: Nii Quarles M.D. Signed By:12/22/22 1356 DD/ 1358 TD/TT: Cardiovascular Lab Director: Cash [facility] Final Result documented in this encounter Visit Diagnoses Not on filedocumented in this encounter Care Teams Pig Farmer Relationship Specialty Start Date End Date Cash Pollard PA [address] [place] [address] PCP - [facility] PATHOLOGY LAB TECHNICIAN 07/01/22 04/01/24 Penelope Garcia NP [address] [place] [address] [place], [place] [id number] PCP - General Family Medicine 10/03/23 Ce Reyes MD [address] [facility] [address] [place] [address] PCP - [facility] PATHOLOGY LAB TECHNICIAN 04/02/24 documented as of this encounter
--- OUTSIDE RECORDS SUMMARY | 2024-09-08 07:33 | XMS_ITS | Encounter Summary ---
Author Organization [facility] Address [address] [place] [address] Care Team Providers Care Respiratory Therapist Name Role Phone Ekta Pollard Unavailable [phone] Penelope Garcia NP Primary Care Provider Ce Reyes MD Unavailable Encounter Details Date Type Department Care Team ([facility] Contact Info) Description 10/24/2022 Abstract [facility] [address] [facility] [address] [place] [id number] Ekta Pollard PA [address] [facility] [address] [place] [address] Social History Tobacco Use Types Packs/Day Years Used Date Smoking Tobacco: Former Cigarettes Q uit: 03/27/2022 Smokeless Tobacco: Never Alcohol Use Standard Drinks/Week Comments Never 0 (1 standard drink = 0.6 oz pur e alcohol) Comments Unknown Sex and Gender Information Value Date Recorded Sex Assigned at Not on file Legal Sex Female 8:21 PM EDT Gender Identity Not on file Sexual Orientation Not on file documented as of this encounter Plan of Treatment Upcoming Encounters Date Type Department Care Team ([facility] Contact Info) Description 10/09/2024 1:05 PM EDT Office Visit [facility] [address] [facility] [address] [place] [phone] Saige Hernandez MD [address] [facility] [address] [place] [address] documented as of this encounter Visit Diagnoses Not on filedocumented in this encounter Care Teams Respiratory Therapist Relationship Specialty Start Date End Date Ekta Pollard PA [address] [place] [address] PCP - [facility] PRODUCT MARKETING PROGRAMS MANAGER 07/01/22 04/01/24 Penelope Garcia NP [address] [place] [address] PCP - General Family Medicine 10/03/23 Ce Reyes MD [address] [place] [address] PCP - [facility] PRODUCT MARKETING PROGRAMS MANAGER 04/02/24 documented as of this encounter
--- OUTSIDE RECORDS SUMMARY | 2024-09-08 07:33 | XMS_ITS | Encounter Summary ---
Author Organization [facility] Address [address] [place] [address] Care Team Providers Care Mechanics Handyman Name Role Phone Ekta Pollard Unavailable [phone] Penelope Garcia NP Primary Care Provider Ce Reyes MD Unavailable Encounter Details Date Type Department Care Team (Late Contact Info) Description 12/20/2022 Abstract [facility] [address] [facility] [address] [place] [address] Ce Reyes MD 112 [facility] [address] [place], [place] [id number] Social History Tobacco Use Types Packs/Day Years Used Date Smoking Tobacco: Former Cigarettes Q uit: 03/27/2022 Smokeless Tobacco: Never Comments:Last smoked : > 1 m onth Alcohol Use Standard Drinks/Week Comments Never 0 [...] Office Visit [facility] [address] [facility] [address] [place] [address] Saige Hernandez MD [address] [facility] [address] [place] [address] documented as of this encounter Visit Diagnoses Not on filedocumented in this encounter Care Teams Mechanics Handyman Relationship Specialty Start Date End Date Ekta Pollard PA [address] [facility] [address] [place] [address] PCP - [facility] NURSING HOME ADMINISTRATOR 07/01/22 04/01/24 Penelope Garcia NP [address] [place] [address] [place] [address] PCP - General Family Medicine 10/03/23 Ce Reyes MD [address] [facility] [address] [place], [place] [id number] PCP - [facility] NURSING HOME ADMINISTRATOR 04/02/24 documented as of this encounter
--- OUTSIDE RECORDS SUMMARY | 2024-09-08 07:33 | XMS_ITS | Encounter Summary ---
Author Organization [facility] Address [address] [place] [address] Care Team Providers Care Operator Receptionist Name Role Phone Ekta Pollard Unavailable [phone] Penelope Garcia NP Primary Care Provider Ce Reyes MD Unavailable Encounter Details Date Type Department Care Team (Late Contact Info) Description 04/18/2023 Orders Only [facility] 112 [facility] 110 [place] [address] A, Unknown Practice [address] [place], [place] [address] Social History Tobacco Use Types Packs/Day Years [...] Office Visit [facility] [address] [facility] 350 [place] [address] Saige Hernandez MD [address] [facility] 350 [place] [address] documented as of this encounter Procedures Procedure Name Priority Date/Time Associated Diagnosis Comments XR FOOT 3+ VIEWS LEFT Routine 04/16/2023 8:03 AM EST documented in this encounter Results * XR foot 3+ views left (04/16/2023 8:03 AM EST) Anatomical Region Laterality Modality Lower Extremities, Foot Left Radiogra phic Imaging us Unknown Practice A IMG XR PROCEDURES Final Resul t documented in this encounter Visit Diagnoses Not on filedocumented in this encounter Care Teams Operator Receptionist Relationship Specialty Start Date End Date Ekta Pollard PA 112 [facility] 110 [place] [address] PCP - [facility] 07/01/22 04/01/24 Penelope Garcia NP [address] [place] [address] PCP - General Family Medicine 10/03/23 Ce Reyes MD 112 [facility] 110 [place] [address] PCP - [facility] 04/02/24 documented as of this encounter
--- OUTSIDE RECORDS SUMMARY | 2024-09-08 07:33 | XMS_ITS | Encounter Summary ---
Author Organization [facility] Address [address] [place] [address] Care Team Providers Care Community Service Patrol Officer Name Role Phone Ekta Pollard Unavailable [phone] Penelope Garcia NP Primary Care Provider Ce Reyes MD Unavailable Encounter Details Date Type Department Care Team (Late st Contact Info) Description 12/11/2022 Orders Only [facility] [address] [facility] 110 [place] [address] A, Unknown Practice [address] [place], [place] [phone] Social History Tobacco Use Types Packs/Day Years [...] Office Visit [facility] [address] [facility] 350 [place] [address] Saige Hernandez MD [address] [facility] 350 [place] [address] documented as of this encounter Procedures Procedure Name Priority Date/Time Associated Diagnosis Comments XR FINGERS 2+ VIEWS LEFT Routine 12/10/2022 11:04 AM EDT documented in this encounter Results * XR fingers 2+ views left (12/10/2022 11:04 AM EDT) Anatomical Region Laterality Modality Upper Extremities, Fingers Left Radio graphic Imaging us Unknown Practice A IMG XR PROCEDURES Final Resul t documented in this encounter Visit Diagnoses Not on filedocumented in this encounter Care Teams Community Service Patrol Officer Relationship Specialty Start Date End Date Ekta Pollard PA [address] [facility] 110 [place] [address] PCP - [facility] 07/01/22 04/01/24 Penelope Garcia NP [address] [place] [address] [place] [address] PCP - General Family Medicine 10/03/23 Ce Reyes MD 112 [facility] 110 [place] [address] PCP - [facility] 04/02/24 documented as of this encounter
--- OUTSIDE RECORDS SUMMARY | 2024-09-08 07:33 | XMS_ITS | Encounter Summary ---
Author Organization [facility] Address [address] [place] [address] Care Team Providers Care Physician Assistant Surgery Name Role Phone Ekta Pollard Unavailable [phone] Penelope Garcia NP Primary Care Provider Ce Reyes MD Unavailable Encounter Details Date Type Department Care Team (Late Contact Info) Description 04/19/2023 Abstract [facility] 112 [facility] 110 [place] [address] Ce Reyes MD 112 [facility] 110 [place], [place] [id number] Social History Tobacco Use Types Packs/Day Years [...] Office Visit [facility] [address] [facility] 350 [place] [address] Saige Hernandez MD [address] [facility] 350 [place] [address] documented as of this encounter Visit Diagnoses Not on filedocumented in this encounter Care Teams Physician Assistant Surgery Relationship Specialty Start Date End Date Ekta Pollard PA [address] [facility] 110 [place] [address] PCP - [facility] SCHOOL LUNCH MONITOR 07/01/22 04/01/24 Penelope Garcia NP [address] [place] [address] [place] [address] PCP - General Family Medicine 10/03/23 Ce Reyes MD 112 [facility] 110 [place], [place] [address] PCP - [facility] SCHOOL LUNCH MONITOR 04/02/24 documented as of this encounter
--- OUTSIDE RECORDS SUMMARY | 2024-09-08 07:33 | XMS_ITS | Encounter Summary ---
Author Organization [facility] Address [address] [place] [address] Care Team Providers Care Band Reamer Machine Operator Name Role Phone Ekta Pollard Unavailable [phone] Penelope Garcia NP Primary Care Provider Ce Reyes MD Unavailable Encounter Details Date Type Department Care Team ([facility] Contact Info) Description 11/11/2022 Abstract [facility] [address] [facility] 350 [place] [address] Saige Hernandez MD [address] [facility] 350 [place] [address] Social History Tobacco Use Types Packs/Day Years [...] Upcoming Encounters Date Type Department Care Team ([facility] Contact Info) Description 10/09/2024 1:05 PM EDT Office Visit [facility] [address] [facility] 350 [place] [address] Saige Hernandez MD [address] [facility] 350 [place] [address] documented as of this encounter Visit Diagnoses Not on filedocumented in this encounter Care Teams Band Reamer Machine Operator Relationship Specialty Start Date End Date Ekta Pollard PA [address] [facility] 110 [place] [address] PCP - [facility] GEOLOGY ASSOCIATE 07/01/22 04/01/24 Penelope Garcia NP [address] [facility] [place] [address] PCP - General Family Medicine 10/03/23 Ce Reyes MD [address] [facility] [address] [place] [address] PCP - [facility] GEOLOGY ASSOCIATE 04/02/24 documented as of this encounter
--- OUTSIDE RECORDS SUMMARY | 2024-09-08 07:33 | XMS_ITS | Encounter Summary ---
Author Organization [facility] Address [address] [place] [address] Care Team Providers Care Children'S Book Author Name Role Phone Ekta Pollard Unavailable [phone] Penelope Garcia NP Primary Care Provider Ce Reyes MD Unavailable Encounter Details Date Type Department Care Team (Late Contact Info) Description 07/03/2023 Orders Only [facility] 112 [facility] 110 [place] [address] Unallocated, Noms Provider, [address] [place], [place] [address] Social History Tobacco Use Types Packs/Day Years [...] Office Visit [facility] [address] [facility] 350 [place] [address] Saige Hernandez MD [address] [facility] 350 [place] [address] documented as of this encounter Procedures Procedure Name Priority Date/Time Associated Diagnosis Comments XR HAND 3+ VIEWS RIGHT Routine 07/02/2023 8:18 AM EDT documented in this encounter Results * XR hand 3+ views right (07/02/2023 8:18 AM EDT) Anatomical Region Laterality Modality Upper Extremities, Hand Right Radiogra phic Imaging us Noms Provider Unallocated MD TORO XR PROCEDURES F inal Result documented in this encounter Visit Diagnoses Not on filedocumented in this encounter Care Teams Children'S Book Author Relationship Specialty Start Date End Date Ekta Pollard PA [address] [facility] 110 [place], [place] [phone] PCP - [facility] 07/01/22 04/01/24 Penelope Garcia NP [facility] [address] PCP - General Family Medicine 10/03/23 Ce Reyes MD [address] [facility] 110 [place], [place] [address] PCP - [facility] 04/02/24 documented as of this encounter
--- OUTSIDE RECORDS SUMMARY | 2024-09-08 07:33 | XMS_ITS | Encounter Summary ---
Author Organization [facility] Address [address] [place] [address] Care Team Providers Care Teen Counselor Name Role Phone Ekta Pollard Unavailable [phone] Penelope Garcia NP Primary Care Provider Ce Reyes MD Unavailable Encounter Details Date Type Department Care Team ([facility] Contact Info) Description 11/21/2022 Abstract [facility] 112 [facility] 110 [place] [address] Ce Reyes MD 112 [facility] 110 [place] [address] Social History Tobacco Use Types Packs/Day Years [...] Upcoming Encounters Date Type Department Care Team ([facility] Contact Info) Description 10/09/2024 1:05 PM EDT Office Visit [facility] [address] [facility] 350 [place] [address] Saige Hernandez MD [address] [facility] 350 [place] [address] documented as of this encounter Visit Diagnoses Not on filedocumented in this encounter Care Teams Teen Counselor Relationship Specialty Start Date End Date Ekta Pollard PA [address] [facility] 110 [place] [address] PCP - [facility] SALESPERSON MEN'S HATS 07/01/22 04/01/24 Penelope Garcia NP [address] [facility] [place] [address] PCP - General Family Medicine 10/03/23 Ce Reyes MD [address] [facility] 110 [place] [address] PCP - [facility] SALESPERSON MEN'S HATS 04/02/24 documented as of this encounter
--- OUTSIDE RECORDS SUMMARY | 2024-09-08 07:33 | XMS_ITS | Encounter Summary ---
Author Organization [facility] Address [address] [place] [address] Care Team Providers Care Superintendent Building Name Role Phone Ekta Pollard Unavailable [phone] Penelope Garcia NP Primary Care Provider Ce Reyes MD Unavailable Encounter Details Date Type Department Care Team (Late Contact Info) Description 12/25/2022 Orders Only [facility] 112 [facility] 110 [place] [address] A, Unknown Practice [address] [place], [place] [address] Social History Tobacco Use Types Packs/Day Years [...] Office Visit [facility] [address] [facility] 350 [place] [address] Saige Hernandez MD [address] [facility] 350 [place] [address] documented as of this encounter Procedures Procedure Name Priority Date/Time Associated Diagnosis Comments XR FINGERS 2+ VIEWS LEFT Routine 12/22/2022 4:12 PM EDT documented in this encounter Results * XR fingers 2+ views left (12/22/2022 4:12 PM EDT) Anatomical Region Laterality Modality Upper Extremities, Fingers Left Radio graphic Imaging us Unknown Practice A IMG XR PROCEDURES Final Resul t documented in this encounter Visit Diagnoses Not on filedocumented in this encounter Care Teams Superintendent Building Relationship Specialty Start Date End Date Ekta Pollard PA 112 [facility] 110 [place] [address] PCP - [facility] 07/01/22 04/01/24 Penelope Garcia NP [address] [place] [address] PCP - General Family Medicine 10/03/23 Ce Reyes MD 112 [facility] 110 [place] [address] PCP - [facility] 04/02/24 documented as of this encounter
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
--- OUTSIDE RECORDS SUMMARY | 2024-09-08 07:33 | XMS_ITS | Encounter Summary ---
Author Organization [facility] Address [address] [place] [address] Care Team Providers Care Pest Locator Name Role Phone Ekta Pollard Unavailable [phone] Penelope Garcia NP Primary Care Provider Ce Reyes MD Unavailable Encounter Details Date Type Department Care Team (Late Contact Info) Description 05/17/2023 Abstract [facility] 112 [facility] 110 [place] [address] Ce Reyes MD 112 [facility] 110 [place], [place] [address] Social History Tobacco Use Types Packs/Day Years [...] Office Visit [facility] [address] [facility] 350 [place] [address] Saige Hernandez MD [address] [facility] 350 [place] [address] documented as of this encounter Visit Diagnoses Not on filedocumented in this encounter Care Teams Pest Locator Relationship Specialty Start Date End Date Ekta Pollard PA [address] [facility] 110 [place] [address] PCP - [facility] TRANSMISSION OPERATOR 07/01/22 04/01/24 Penelope Garcia NP [address] [place] [address] [place] [address] PCP - General Family Medicine 10/03/23 Ce Reyes MD 112 [place] [facility] 110 [place], [place] [address] PCP - [facility] TRANSMISSION OPERATOR 04/02/24 documented as of this encounter
--- OUTSIDE RECORDS SUMMARY | 2024-09-08 07:33 | XMS_ITS | Encounter Summary ---
Author Organization [facility] Address [address] [place] [address] Care Team Providers Care Light Oil Operator Name Role Phone Ekta Pollard Unavailable [phone] Penelope Garcia NP Primary Care Provider Ce Reyes MD Unavailable Encounter Details Date Type Department Care Team ([facility] Contact Info) Description 10/05/2022 Abstract [facility] [address] [facility] 110 [place] [address] Ekta Pollard PA [address] [facility] 110 [place] [address] Social History Tobacco Use Types Packs/Day Years [...] Upcoming Encounters Date Type Department Care Team ([facility] Contact Info) Description 10/09/2024 1:05 PM EDT Office Visit [facility] [address] [facility] 350 [place] [phone] Saige Hernandez MD [address] [facility] 350 [place] [address] documented as of this encounter Visit Diagnoses Not on filedocumented in this encounter Care Teams Light Oil Operator Relationship Specialty Start Date End Date Ekta Pollard PA [address] [facility] [address] [place] [address] PCP - [facility] GROUP HOME COUNSELOR 07/01/22 04/01/24 Penelope Garcia NP [address] [place] [address] PCP - General Family Medicine 10/03/23 Ce Reyes MD [address] [facility] [address] [place] [address] PCP - [facility] GROUP HOME COUNSELOR 04/02/24 documented as of this encounter
--- OUTSIDE RECORDS SUMMARY | 2024-09-08 07:33 | XMS_ITS | Encounter Summary ---
Author Organization [facility] Address [address] [place] [address] Care Team Providers Care Credit Correspondence Clerk Name Role Phone Ekta Pollard Unavailable [phone] Penelope Garcia NP Primary Care Provider Ce Reyes MD Unavailable Encounter Details Date Type Department Care Team (Late Contact Info) Description 05/30/2023 Abstract [facility] 112 [facility] 110 [place] [address] Ce Reyes MD 112 [facility] 110 [place], [place] [phone] Social History Tobacco Use Types Packs/Day Years [...] Office Visit [facility]ER[facility] [address] [facility] 350 [place] [phone] Saige Hernandez MD [address] [facility] 350 [place] [address] documented as of this encounter Visit Diagnoses Not on filedocumented in this encounter Care Teams Credit Correspondence Clerk Relationship Specialty Start Date End Date Ekta Pollard PA [address] [facility] 110 [place] [address] PCP - [facility] STONE AND CONCRETE WASHER 07/01/22 04/01/24 Penelope Garcia NP [address] [place] [address] [place] [address] PCP - General Family Medicine 10/03/23 Ce Reyes MD [address] [facility] 110 [place], [place] [address] PCP - [facility] STONE AND CONCRETE WASHER 04/02/24 documented as of this encounter
--- OUTSIDE RECORDS SUMMARY | 2024-09-08 07:33 | XMS_ITS | Encounter Summary ---
Author Organization [facility] Address [address] [place] [address] Care Team Providers Care Millinery Department Manager Name Role Phone Ekta Pollard Unavailable [phone] Penelope Garcia NP Primary Care Provider Ce Reyes MD Unavailable Encounter Details Date Type Department Care Team (Late Contact Info) Description 05/30/2023 Abstract [facility] 112 [facility] 110 [place] [address] Ce Reyes MD 112 [facility] 110 [place], [place] [phone] Social History Tobacco Use Types Packs/Day Years [...] Office Visit [facility] DER[facility] [address] [facility] 350 [place] [address] Saige Hernandez MD [address] [facility] 350 [place] [address] documented as of this encounter Visit Diagnoses Not on filedocumented in this encounter Care Teams Millinery Department Manager Relationship Specialty Start Date End Date Ekta Pollard PA [address] [facility] 110 [place] [address] PCP - [facility] PROPERTY AND SUPPLY OFFICER 07/01/22 04/01/24 Penelope Garcia NP [address] [place] [address] [place] [address] PCP - General Family Medicine 10/03/23 Ce Reyes MD [address] [facility] 110 [place], [place] [address] PCP - [facility] PROPERTY AND SUPPLY OFFICER 04/02/24 documented as of this encounter
--- OUTSIDE RECORDS SUMMARY | 2024-09-08 07:33 | XMS_ITS | Encounter Summary ---
Author Organization [facility] Address [address] [place] [address] Care Team Providers Care Flea Market Seller Name Role Phone Ekta Pollard Unavailable [phone] Penelope Garcia NP Primary Care Provider Ce Reyes MD Unavailable Encounter Details Date Type Department Care Team ([facility] Contact Info) Description 10/24/2022 Abstract [facility] FM [address] [facility] 110 [place] [phone] Ekta Pollard PA [address] [facility] 110 [place] [address] Social History Tobacco Use Types Packs/Day Years [...] Upcoming Encounters Date Type Department Care Team ([facility] Contact Info) Description 10/09/2024 1:05 PM EDT Office Visit [facility] [address] [facility] 350 [place] [address] Saige Hernandez MD [address] [facility] [address] 350 [place] [address] documented as of this encounter Visit Diagnoses Not on filedocumented in this encounter Care Teams Flea Market Seller Relationship Specialty Start Date End Date Ekta Pollard PA [address] [facility] [address] [place] [address] PCP - [facility] PRESSURE TESTER 07/01/22 04/01/24 Penelope Garcia NP [address] [facility] [place] [address] PCP - General Family Medicine 10/03/23 Ce Reyes MD [address] [facility] 110 [place] [address] PCP - [facility] PRESSURE TESTER 04/02/24 documented as of this encounter
--- OUTSIDE RECORDS SUMMARY | 2024-09-08 07:34 | XMS_ITS | Patient Health Record ---
Author Organization [facility] es Address [address] [place] [address] Care Team Providers Care Veneer Jointer Helper Name Role Phone Silvia Slater Primary Care Provider [phone] Allergies Allergen (clinical drug ingredient) Drug/Non Drug Allergy documented on EMR Reaction Allergy Type Onset Date Status prednisone Prednisone Unknown Drug Allergy Activ e Reason For Referral No Information Medications Medication SIG (Take, Route, Frequency, Duration) Notes Start Date End Date Status Ventolin HFA Active Plan Of Treatment No Information Insurance Providers Payer Name Payer Address Payer Phone Subscriber Number Group Number Insured Name Patient Relationship to Insured Coverage Start Date Coverage End Date [facility] Medicaid [address] [place] [address] [id number] DEBORAH ESPINOZA Self - patient is the insured 3 [facility] [address] [place] [address] [id number] BREE ESPINOZAA Self - patient is the insured [facility] [address] [place] [address] [id number] BREE ESPINOZAA Self - patient is the insured 3 [employer] [facility] [address] [place] [address] [id number] DEBORAH ESPINOZA Self - patient is the insured 3
--- OUTSIDE RECORDS SUMMARY | 2024-09-08 07:34 | XMS_ITS | Patient Health Record ---
Author Organization [facility] Address [address] [place] [address] Care Team Providers Care Leather Belt Maker Name Role Phone Ozzy Morrison [phone] Allergies Allergen (clinical drug ingredient) Drug/Non Drug Allergy documented on EMR Reaction Allergy Type Onset Date Status bees (uncoded) Unknown Allergy Activ e penicillin (uncoded) Unknown Allergy Active Pertussis Vaccine pertussis vaccine (uncoded) Unknown Allergy Active Spinach spinach (uncoded) Unknown Allergy Ac tive prednisone predniSONE Unknown Drug Allergy Activ e Reason For [...] (Standard) Question Answer Notes Tobacco use: Nonsmoker Plan Of Treatment No Information Insurance Providers Payer Name Payer Address Payer Phone Subscriber Number Group Number Insured Name Patient Relationship to Insured Coverage Start Date Coverage End Date Medicaid [employer] [place] [address] [place] [address] [id number] DEBORAH ESPINOZA Self - patient is the insured Medical (General) History Medical History History ICD Code Asthma/COPD Depression Anxiety Drug Allergies Surgical History Surgery Date(Month/Year) Left shoulder Hysterectomy Right wrist/forearm
--- OUTSIDE RECORDS SUMMARY | 2024-09-08 07:34 | XMS_ITS | Encounter Summary ---
Author Organization [facility] Address [address] [place] [address] Care Team Providers Care Health Professor Name Role Phone Ekta Pollard Unavailable [phone] Penelope Garcia NP Primary Care Provider Ce Reyes MD Unavailable Encounter Details Date Type Department Care Team ([facility] Contact Info) Description 10/25/2022 Abstract [facility] [address] [facility] [address] [place] [id number] Ekta Pollard PA [address] [facility] [address] [place] [address] Social History Tobacco Use Types Packs/Day Years [...] Upcoming Encounters Date Type Department Care Team ([facility] Contact Info) Description 10/09/2024 1:05 PM EDT Office Visit [facility] [address] [facility] [address] [place] [phone] Saige Hernandez MD [address] [facility] [address] [place] [address] documented as of this encounter Visit Diagnoses Not on filedocumented in this encounter Care Teams Health Professor Relationship Specialty Start Date End Date Ekta Pollard PA [address] [place] [address] PCP - [facility] HYDROGRAPHER 07/01/22 04/01/24 Penelope Garcia NP [address] [facility] [place] [address] PCP - General Family Medicine 10/03/23 Ce Reyes MD [address] [place] [address] PCP - [facility] HYDROGRAPHER 04/02/24 documented as of this encounter
--- OUTSIDE RECORDS SUMMARY | 2024-09-08 07:34 | XMS_ITS | Encounter Summary ---
Author Organization [facility] Address [address] [place] [address] Care Team Providers Care Accounts Receivable Supervisor Name Role Phone Ekta Pollard Unavailable [phone] Penelope Garcia NP Primary Care Provider Ce Reyes MD Unavailable Encounter Details Date Type Department Care Team ([facility] Contact Info) Description 10/26/2022 Abstract [facility] [address] [facility] [address] [place] [phone] Ekta Pollard PA [address] [facility] [address] [place] [address] Social History Tobacco Use Types Packs/Day Years [...] Upcoming Encounters Date Type Department Care Team ([facility] Contact Info) Description 10/09/2024 1:05 PM EDT Office Visit [facility] [address] [facility] [address] [place] [phone] Saige Hernandez MD [address] [facility] [address] [place] [address] documented as of this encounter Visit Diagnoses Not on filedocumented in this encounter Care Teams Accounts Receivable Supervisor Relationship Specialty Start Date End Date Ekta Pollard PA [address] [place] [address] PCP - [facility] BISTRO SERVER 07/01/22 04/01/24 Penelope Garcia NP [address] [place] [address] PCP - General Family Medicine 10/03/23 Ce Reyes MD [address] [place] [address] PCP - [facility] BISTRO SERVER 04/02/24 documented as of this encounter
--- OUTSIDE RECORDS SUMMARY | 2024-09-08 07:45 | XMS_ITS | CCD ---
Author Organization [facility] CliniSyaz Care Team Providers Care Marine Engine Mechanic Name Role Phone KOLBY KIRK Admitting Unavailable KOLBY KIRK Attending Unavailable MISC, DR PETERSON Primary Care Unavailable KOLBY KIRK Consulting Unavailable DALJIT RO Consulting Unavailable MISC, DR PETERSON Primary Care Unavailable HENYN WEBBER Admitting Unavailable KATKO, HENNY West Attending [...] Attending Unavailable PIETER SMITH Attending Unavailable HEMCASH MUELLRE Referring Unavailable PIETER SMITH Attending Unavailable HEMCASH MUELLER Referring Unavailable HEMCASH MUELLER Attending Unavailable HEMCASH MUELLER Attending Unavailable ANJELICA MARTINS Primary Care Physician ROHRBACHER, PENELOPE A Attending Unavailab le ROHRBACHERPENELOPE A Admitting Unavailab le Rohrbacher CSM CONSULTANT, Penelope Primary Care Provider Rohrbacher CSM CONSULTANT, Penelope Attending Provider [phone] Stalinrbjodier, Penelope Attending Unavailable Rohrbacher, Penelope Primary Care Unavailable Rohrbacher, Penelope Admitting Unavailable Rohrbacher CSM CONSULTANT, Penelope Primary Care Provider Rohrbacher CSM CONSULTANT, Penelope Attending Provider Giedraitis MD, Andrius Vytautas Attending Unavailable Giedraitis MD, Andrius Vytautas Attending Unavailable Giedraitis MD, Andrius Vytautas Attending Unavailable Giedraitis MD, Andrius Vytautas Attending Unavailable Giedraitis MD, Andrius Vytautas Attending Unavailable Giedraitis MD, Andrius Vytautas Attending Unavailable Allergies Allergy Classification Reported Allergen(s) Allergy Type Date of Onset Reaction(s) Facility (1 source) cefdinir Drug Allergy 5 [facility] Repository (8 sources) Penicillins Drug allergy (disorder) 3 Hives [facility] Repository (8 sources) predniSONE Drug Allergy 2 Heartburn [facility] Repository (1 source) traMADol Drug Allergy 3 [facility] Repository (1 source) Pertussis Immune Globulin Drug allergy (disorder) 3 [facility] Repository (10 sources) spinach allergenic extract; Translations: [Spinach (substance)] Drug Allergy 4 Airway constriction (finding) [facility] (8 sources) bee venom protein (honey bee); Translations: [bee venom protein (honey bee)] Allergy to substance 4 Anaphylaxis [facility] (8 sources) diphtheria,pert ussis (acellular),te; Translations: [diphtheria,per tussis (acellular),te] Allergy to substance 4 Unknown Reaction [facility] (2 sources) Bee/Wasp/Ant venom; Translations: [Bee Stings] Drug allergy [facility] (2 sources) Penicillin; Translations: [penicillin] Drug Allergy [facility] (2 sources) Pertussis Vaccine; Translations: [Whooping-cough vaccine] Drug Allergy Airway constriction (finding) [facility] (2 sources) Sodium Bicarbonate; Translations: [Baking soda] Drug Allergy Red color (finding) [facility] (1 source) Penicillins Drug allergy (disorder) [address] [place] [address] Repository (1 source) predniSONE Drug Allergy [address] [place] [address] Repository Medications Current Medications Medication Drug Class(es) [...] MG PO Daily August 04, 2024 1:28pm [id number] 0.3 ml EPINEPHrine 1 mg/ml auto-injector (7 [...] US renal RTon 05-12-2024 US renal RT [facility] Main [place] [address] [place] [address] Ultrasound Report Signed Patient: Yanci Lcoo MR#: [id number] : 1985 Acct:[id number] Age/Sex: 38 / F ADM Date: 05/12/24 Loc: Room: Type: [facility] Attending Dr: LUCRETIA Andino APRNC Ordering Provider: [...] Whitney Jr., DPerOPer05/12/2024 4:24 PM Dictation Location: [place] [address] Tech: Vernell Sirena Transcribed By: TANA 05/12/24 1624 Dictated By: Mike Whitney Jr, DO 05/12/24 1623 Signed By: 05/12/24 1624 Normal [facility] Basophils Auto (Bld) [#/Vol] on 04-30-2024 Basophils (Bld) [#/Vol] Automated basophil count 0.0-0.1 [facility] Basophils/100 WBC Auto (Bld) on 04-30-2024 Basophils/100 WBC (Bld) Automated basophil % 0.2-2.0 [facility] Cholesterol in LDL Calc [Mas s/Vol]on 04-30-2024 Cholesterol in LDL [Mass/Vol] Cholesterol in LDL [Mass/volume] in Serum or Plasma by calculation [facility] Comment on above: <100 mg/dl [id number] 0-129 mg/dl NEAR OR ABOVE [id number] mg/dl BORDERLINE [id number] mg/dl HIGH>190 mg/dl VERY HIGH Cholesterol in VLDL Calc [Ma ss/Vol]on 04-30-2024 Cholesterol in VLDL [Mass/Vol] Cholesterol in VLDL [Mass/volume] in Serum or Plasma by calculation [facility] Eosinophils/100 WBC Auto (Bl d)on 04-30-2024 Eosinophils/100 WBC (Bld) Automated eosinophil % 0.9-7.0 [facility] Erythrocyte distribution wid th Auto (RBC) [Ratio]on 04-30-2024 Erythrocyte distribution width (RBC) [Ratio] Erythrocyte distribution width [Ratio] by Automated count 11.0-15.0 [facility] Estimated glomerular filtrat ion rate (GFR) non- Americanon 04-30-2024 GFR/1.73 sq M.predicted among non-blacks MDRD (S/P/Bld) [Vol rate/Area] Estimated glomerular filtration rate (GFR) non- >=60 mL/min/1.73m 2 [facility] Globulin Calc (S) [Mass/Vol] on 04-30-2024 Globulin (S) [Mass/Vol] Serum globulin measurement by calculation (mass/volume) [facility] Hematocrit Auto (Bld) [Volum e fraction]on 04-30-2024 Hematocrit (Bld) [Volume fraction] Hematocrit [Volume Fraction] of Blood by Automated count 36.0-48.0 [facility] Hemoglobin [Mass/volume] in Bloodon 04-30-2024 Hemoglobin (Bld) [Mass/Vol] Hemoglobin [Mass/volume] in Blood 12.0-16.0 [facility] Laboratory - Chemistry and C hemistry - challengeon 04-30-2024 Albumin [Mass/Vol] 3.6 g/dL 3.4-5.0 [facility] ALP [Catalytic activity/Vol] 70 U/L 46-116 [facility] ALT [Catalytic activity/Vol] 28 U/L 14-59 [facility] AST [Catalytic activity/Vol] 17 U/L 15-37 [facility] Bilirubin [Mass/Vol] 0.3 mg/dL 0.2-1.0 [facility] Calcium [Mass/Vol] 8.6 mg/dL 8.5-10.1 [facility] Chloride [Moles/Vol] 104 mmol/L 98-107 [facility] Cholesterol [Mass/Vol] 227 mg/dL High <=200 [facility] Cholesterol in HDL [Mass/Vol] 59 mg/dL 40-60 [facility] Comment on above: > or =60 mg/dl - LOW CARDIOVASCULAR RISK<40 mg/dl - HIGH CARDIOVASCULAR RISK CO2 [Moles/Vol] 26.5 mmol/L 21.0-32.0 [facility] Creatinine [Mass/Vol] 1.02 mg/dL 0.55-1.02 [facility] GFR/1.73 sq M.predicted MDRD (S/P/Bld) [Vol rate/Area] mL/min/{1.73_m2} >=60 mL/min/1.73m 2 [facility] Glucose [Mass/Vol] 86 mg/dL 74-106 [facility] Potassium [Moles/Vol] 3.6 mmol/L 3.5-5.1 [facility] Protein [Mass/Vol] 7.4 g/dL 6.4-8.2 [facility] Sodium [Moles/Vol] 140 mmol/L 136-145 [facility] Triglyceride [Mass/Vol] 165 mg/dL High <=150 [facility] Urea nitrogen [Mass/Vol] 16.0 mg/dL 7.0-18.0 [facility] Urea nitrogen/Creatinine [Mass ratio] 15.7 mg/mg [facility] Laboratory - Hematology and Cell countson 04-30-2024 Immature granulocytes/100 WBC (Bld) 0.1 % 0.0-0.5 [facility] Leukocytes [#/volume] correc souleymane for nucleated erythrocytes in Blood by Automated counon 04-30-2024 WBC corrected for nucl RBC Auto (Bld) [#/Vol] Leukocytes [#/volume] corrected for nucleated erythrocytes in Blood by Automated coun 4.0-11.0 [facility] Lymphocytes Auto (Bld) [#/Vo l]on 04-30-2024 Lymphocytes (Bld) [#/Vol] Lymphocytes [#/volume] in Blood by Automated count 1.2-3.8 [facility] Lymphocytes/100 WBC Auto (Bl d)on 04-30-2024 Lymphocytes/100 WBC (Bld) Lymphocytes/100 leukocytes in Blood by Automated count 20.5-60.0 [facility] MCH Auto (RBC) [Entitic mass ]on 04-30-2024 MCH (RBC) [Entitic mass] MCH [Entitic mass] by Automated count 26.7-34.0 [facility] MCHC Auto (RBC) [Mass/Vol]on 04-30-2024 MCHC (RBC) [Mass/Vol] MCHC [Mass/volume] by Automated count 29.9-35.2 [facility] MCV Auto (RBC) [Entitic vol] on 04-30-2024 MCV (RBC) [Entitic vol] MCV [Entitic volume] by Automated count 81.0-99.0 [facility] Monocytes Auto (Bld) [#/Vol] on 04-30-2024 Monocytes (Bld) [#/Vol] Automated blood monocyte count 0.3-0.8 [facility] Monocytes/100 WBC Auto (Bld) on 04-30-2024 Monocytes/100 WBC (Bld) Automated monocyte % 1.7-12.0 [facility] Neutrophils Auto (Bld) [#/Vo l]on 04-30-2024 Neutrophils (Bld) [#/Vol] Neutrophils [#/volume] in Blood by Automated count 1.4-6.5 [facility] Neutrophils/100 WBC Auto (Bl d)on 04-30-2024 Neutrophils/100 WBC (Bld) Automated neutrophil % 43.0-75.0 [facility] No Panel Informationon 04-30 Eosinophils # (Auto) 0.1 10 3/uL 0.0-0.7 [facility] Immature Granulocyte # (Auto) 0.01 10 3/uL 0.00-0.03 [facility] Platelet mean volume Auto (B ld) [Entitic vol]on 04-30-2024 Platelet mean volume (Bld) [Entitic vol] Platelet mean volume [Entitic volume] in Blood by Automated count 9.5-13.5 [facility] Platelets Auto (Bld) [#/Vol] on 04-30-2024 Platelets (Bld) [#/Vol] Platelets [#/volume] in Blood by Automated count 150-450 [facility] RBC Auto (Bld) [#/Vol]on RBC (Bld) [#/Vol] Erythrocytes [#/volume] in Blood by Automated count 4.20-5.40 [facility] Serum or plasma albumin/glob ulin mass ratioon 04-30-2024 Albumin/Globulin [Mass ratio] Serum or plasma albumin/globulin mass ratio [facility] Serum or plasma anion gap de terminationon 04-30-2024 Anion gap [Moles/Vol] Serum or plasma an ion gap determination [facility] Serum or plasma total choles terol/high density lipoprotein (HDL) cholesterol mass lucie 04-30-2024 Cholesterol.total/Cho lesterol in HDL [Mass ratio] Serum or plasma total cholesterol/high density lipoprotein (HDL) cholesterol mass rat [facility] Comment on above: 3.3 - 4.4 LOW [...] mGy = na DAP = na Normal [place] Consent for Treatmenton 07-31 Consent for Treatment [id number] .00TIFF Normal [place] Physician Orderon 08-14-2023 Physician Order [id number]# 1.00TIFF Normal [place] XR ANKLE RT MIN 3 VIEWSon XR [...] by: Santy RO Date: 2021-12-31 22:43 Normal [facility] CT [address]ECK [address] W CONon 2 [...] by: LIZANDRO DELACRUZ Date: 2021-09-13 17:01 Normal [facility] XR HIP LT 2 3V W [...] by: SANNA HOOD Date: 2021-04-18 11:23 Normal [facility] Vital Signs Date Time Vital Sign Value Performing Clinician Bushra sanchez 08-04-2024 13:04-0400 Body height 165.1 cm Penelope Garcia APRN Work Phone: [facility] 08-04-2024 13:04-0400 Body mass index (BMI) [Ratio] 31.9 kg/m2 Penelope Garcia APRN Work Phone: [facility] 08-04-2024 13:04-0400 Body temperature 96.7 [degF] Penelope Garcia APRN Work Phone: [facility] 08-04-2024 13:04-0400 Body weight 87.08 kg Penelope Garcia CSM CONSULTANT Work Phone: [facility] 08-04-2024 13:04-0400 Heart rate 77 /min Penelope Garcia CSM CONSULTANT Work Phone: [facility] 08-04-2024 13:04-0400 SaO2% (BldA) [Mass fraction] 99 % Penelope Garcia CSM CONSULTANT Work Phone: [facility] 04-29-2024 12:59-0500 Body height 165.1 cm [facility] 04-29-2024 12:59-0500 Body temperature 98.4 [degF] [facility] 04-29-2024 12:59-0500 Diastolic blood pressure 72 mm[Hg] [facility] 04-29-2024 12:59-0500 Heart rate 80 /min [facility] 04-29-2024 12:59-0500 SaO2% (BldA) [Mass fraction] 99 % [facility] 04-29-2024 12:59-0500 Systolic blood pressure 116 mm[Hg] [facility] 02-01-2024 09:28-0400 Body height 165.1 cm [facility] 02-01-2024 09:28-0400 Body mass index (BMI) [Ratio] 30.9 kg/m2 [facility] 02-01-2024 09:28-0400 Body temperature 96.8 [degF] [facility] 02-01-2024 09:28-0400 Body weight 84.48 kg [facility] 02-01-2024 09:28-0400 Diastolic blood pressure 76 mm[Hg] [facility] 02-01-2024 09:28-0400 Heart rate 70 /min [facility] 02-01-2024 09:28-0400 SaO2% (BldA) [Mass fraction] 98 % [facility] 02-01-2024 09:28-0400 Systolic blood pressure 124 mm[Hg] [facility] 09-27-2023 13:58-0400 Body height 165.1 cm [facility] 09-27-2023 13:58-0400 Body mass index (BMI) [Ratio] 30.4 kg/m2 [facility] 09-27-2023 13:58-0400 Body weight 83.06 kg [facility] 09-27-2023 13:58-0400 Diastolic blood pressure 76 mm[Hg] [facility] 09-27-2023 13:58-0400 Heart rate 70 /min [facility] 09-27-2023 13:58-0400 Respiratory rate 12 /min [facility] 09-27-2023 13:58-0400 Systolic blood pressure 122 mm[Hg] [facility] 08-06-2023 15:26-0400 Body height 165.1 cm [facility] 08-06-2023 15:26-0400 Body mass index (BMI) [Ratio] 29.7 kg/m2 [facility] 08-06-2023 15:26-0400 Body temperature 97.5 [degF] [facility] 08-06-2023 15:26-0400 Body weight 81.19 kg [facility] 08-06-2023 15:26-0400 Diastolic blood pressure 74 mm[Hg] [facility] 08-06-2023 15:26-0400 Heart rate 71 /min [facility] 08-06-2023 15:26-0400 Respiratory rate 18 /min [facility] 08-06-2023 15:26-0400 SaO2% (BldA) [Mass fraction] 98 % [facility] 08-06-2023 15:26-0400 Systolic blood pressure 110 mm[Hg] [facility] 06-20-2023 14:49-0400 Body height 165.1 cm [facility] 06-20-2023 14:49-0400 Body mass index (BMI) [Ratio] 29.7 kg/m2 [facility] 06-20-2023 14:49-0400 Body weight 81.19 kg [facility] 06-20-2023 14:49-0400 Diastolic blood pressure 80 mm[Hg] [facility] 06-20-2023 14:49-0400 Heart rate 78 /min [facility] 06-20-2023 14:49-0400 SaO2% (BldA) [Mass fraction] 98 % [facility] 06-20-2023 14:49-0400 Systolic blood pressure 116 mm[Hg] [facility] Encounters Encounter Date Encounter Type Care Provider Facility Start: 08-04-2024 End: 08-04-2024 ambulatory Penelope Garcia APRN Work Phone: [facility] Work Phone: Start: 08-04-2024 End: 08-04-2024 Patient encounter procedure [facility] Start: 07-28-2024 End: 07-28-2024 ambulatory Andrius Patric Plattitis Facility:[facility] Start: 06-23-2024 End: 06-23-2024 ambulatory Andrius Orionytjefferson Plattitis Facility:[facility] Start: 05-26-2024 End: 05-26-2024 ambulatory Andjennifer Plattitis Facility:[facility] Start: 05-12-2024 End: 05-12-2024 Patient encounter procedure Penelope Garcia APRN Work Phone: [facility] [place] Work Phone: Start: 05-12-2024 End: 05-12-2024 ambulatory Penelope Garcia APRN Work Phone: [facility] Work Phone: Start: 04-30-2024 Non-patient / Non-visit Ruthie Garcia APRN Work Phone: [facility] Work Phone: Start: 04-29-2024 Patient encounter status [facility] Start: 04-29-2024 End: 04-29-2024 ambulatory [facility] Work Phone: Start: 04-29-2024 End: 04-29-2024 Encounter for general adult medical examination without abnormal findings [facility] Start: 04-29-2024 End: 04-29-2024 Patient encounter procedure [facility] Work Phone: Start: 04-28-2024 End: 04-28-2024 ambulatory Katie Lipscomb MD Facility: [facility] Start: 04-22-2024 Non-patient / Non-visit [facility] Work Phone: Start: 03-10-2024 End: 03-10-2024 ambulatory Katie Lipscomb MD Facility: [facility] Start: 02-11-2024 End: 02-11-2024 ambulatory Katie Lipscomb MD Facility: [facility] Start: 02-01-2024 End: 02-01-2024 ambulatory [facility] Work Phone: Start: 02-01-2024 End: 02-01-2024 Patient encounter procedure [facility] Work Phone: Start: 09-27-2023 End: 09-27-2023 ambulatory [facility] Work Phone: Start: 09-27-2023 End: 09-27-2023 Patient encounter procedure [facility] Work Phone: Start: 08-14-2023 End: 08-15-2023 ambulatory PENELOPE GARCIA Facility:[facility] Start: 08-14-2023 End: 08-14-2023 Patient encounter procedure PENELOPE GARCIA [facility] Start: 08-06-2023 End: 08-06-2023 ambulatory [facility] Work Phone: Start: 08-06-2023 End: 08-06-2023 Patient encounter procedure [facility] Work Phone: Start: 06-20-2023 End: 06-20-2023 ambulatory [facility] Work Phone: Start: 06-20-2023 End: 06-20-2023 Patient encounter procedure [facility] Work Phone: Start: 06-06-2023 End: 06-06-2023 ambulatory [...] Start: 04-07-2021 End: 04-07-[address] [facility] Facility:[facility] Procedures Date Procedure Procedure Detail Performing Clinician Start: 05-12-2024 Ultrasonography of right kidney Penelope Jose SCHULTZ Work Phone: H/O: hysterectomy History of hysterectomy History of decompres fly of median nerve History of carpal tunnel surgery of right wrist Ligation of fallopian tube J DONNA JOSE right forearm PENELOPE MARYLOU DORAN Plan of Treatment Date Care Activity Detail Author Start: 04-29-2024 Patient referral [facility] Work Phone: Start: 02-01-2024 Patient referral [facility] Work Phone: Start: 06-20-2023 Patient referral [facility] Work Phone: Comprehensive metabo lic 2000 panel - Serum or Plasma [facility] DXA Skeletal system. axial Views for bone density [facility] Patient Education Low back pain in adults [facility] Work Phone: Patient referral [facility] Work Phone: US Heart Transthoracic [facility] US Kidney - bilateral [facility] Payers Date Payer Category Payer Self-pay 2023 Unknown 2017 Medicaid [id number] 1985 Unknown [id number] 2.16.84 [id number] 1985 Unknown [id number] 2.16.84 0.1.691212.3.579.2.593 1985 Unknown [id number] 2.16.84 0.1.904818.3.579.2.593 1985 Unknown [id number] 2.16.84 0.1.519041.3.579.2.593 1986 Unknown [id number] 2.16.84 0.1.596811.3.579.2.593 1986 Unknown [id number] 2.16.84 0.1.297626.3.579.2.1259 1986 Unknown [id number] 2.16.84 0.1.752325.3.579.2.1259 1986 Unknown [id number] 2.16.84 0.1.191993.3.579.2.1259 1986 Unknown [id number] 2.16.84 0.1.355356.3.579.2.1259 1986 Unknown [id number] 2.16.84 0.1.464289.3.579.2.1259 1986 Unknown [id number] 2.16.84 0.1.950043.3.579.2.1259 1986 Unknown [id number] 2.16.840 .1.418597.3.579.2.9 1986 Unknown [id number] 2.16.840 .1.095254.3.579.2.9 1986 Unknown [id number] 2.16.840 .1.630710.3.579.2.9 1986 Unknown [id number] 2.16.840 .1.495275.3.579.2.9 1986 Unknown [id number] 2.16.840 .1.267096.3.579.2.1258 1986 Unknown [id number] 2.16.8 40.1.794725.3.579.2.727 1985 Unknown [id number] 2.16. 840.1.527190.3.579.2. 1986 Unknown [id number] 2.16. 840.1.901800.3.579.2.196 1986 Unknown [id number] 2.16. 840.1.491903.3.579.2.196 1986 Unknown [id number] 2.16. 840.1.709812.3.579.2.196 1985 Unknown [id number] 2.16. 840.1.333529.3.579.2.196 1986 Unknown [id number] 2.16. 840.1.597378.3.579.2.196 1959 Unknown [id number] Medicaid [employer] [id number] Unknown [id number] 2.16.8 40.1.007869.3.579.2.531 Social History Date Type Detail Facility Start: 06-20-2023 Tobacco smoking stat [facility] Never smoked tobacco (finding) [facility] Start: 1985 Sex Assigned At Female F [facility] Tobacco smoking status [facility] Start: 02-01-2024 End: 02-01-2024 Tobacco smoking status [facility] Ex-smoker (finding) [facility] Start: 04-29-2024 End: 08-04-2024 Sex Female (finding) [facility] Clinical Notes 04-07-2021 to 05-12-2024 Note Date & Type Note Facility 05-12-2024 Radiology Diagnostic study note [facility] [place] [address] Ultrasound Report Signed Patient: Yanci Loco MR#: [id number] : 1985 Acct:[id number] Age/Sex: 38 / F ADM Date: 5 Loc: Room: Type: [facility] Attending Dr: Penelope Garcia APRN, NP-C [...] Whitney Jr., Aguilar05/12/2024 4:24 PM Dictation Location: [place] [address] Tech: Vernell Del Rosariovincenzo Transcribed By: TANA 05/12/241623 Dictated By: Mike Whitney Jr, DO 05/12/241622 Signed By: 05/12/24 1624 [facility] 04-29-2024 Evaluation note Diagnosis Onset Date Resolution Family history of osteoporosis acute April 29 12:56pm History of hysterectomy acute J anuary 2024 12:56pm Kidney anomaly, congenital acute April 29 12:56pm Screening for osteoporosis acute April 29 12:56pm Sprain of right ankle acute Apr 12:56pm [facility] Work Phone: 1(776) 194-418511-01-2024 Evaluation note* Diagnosis Onset Date Resolution Status [...] Apr 12:56pm Wellness examination acute 2024 12:56pm [facility] Work Phone: 1(928) 822-516203-20-2024 Hospital Discharge instructionsAmbulatory Orders* Referral to Orthopedic Surgery Time Frame: 06/20/23, Location: None Selected [facility] Work Phone: 1(585) 403-180710-10-2022 NotePROCEDURE: XR ANKLE RT MIN 3 VIEWS HISTORY: Contusion of right ankle ; acute anterior right ankle pain since injury 16 days ago COMPARISON: XR ankle right 12/31/2021 FINDINGS: BONES:No fracture, acute abnormality, or significant arthropathy. SOFT TISSUES:No visible soft tissue swelling. EFFUSION:None visible. OTHER: Negative. IMPRESSION: 1. Normal examination. Electronically authenticated by: LIZANDRO DELACRUZ Date: 2022-01-09 [facility] [place]01[place]06-2022 NotePROCEDURE: XR FEMUR LT COMPARISON: None. HISTORY: Unspecified fall FINDINGS: BONES:No fracture, acute abnormality, or significant arthropathy. SOFT TISSUES:Negative. No visible soft tissue swelling. EFFUSION:None visible. OTHER: Negative. IMPRESSION: No acute abnormality Electronically authenticated by: TEODORO WHITLEY Date: 2021-04-07 09:14[facility] No data available for this section [facility] Diagnosis Onset Date Resolution Status Anxiety acute Asthma acute Depression acute Irregular heart beat acute Maxillary sinusitis acute Scoliosis acute Trigger finger of right hand acute [facility] Work Phone: Evaluation note* Diagnosis Onset Date Resolution Status Anxiety acute Asthma acute Depression acute Irregular heart beat acute Maxillary sinusitis acute Scoliosis acute Trigger finger of right hand acute Congenital heart defect acut e Irregular heart beat acute Scoliosis acute [facility] Work Phone: Evaluation note* Diagnosis Onset Date Resolution Status Congenital heart defect acut e Deformity of right lower extremity acute Irregular heart beat acute Scoliosis acute Stress headaches acute Trigger finger of right hand acute Rash acute [facility] Work Phone: Evaluation note* Diagnosis Onset Date Resolution Status Anxiety acute Chronic lower back pain acut e Deformity of right lower extremity acute Depression acute GERD (gastroesophageal reflux disease) acute Stress headaches acute [facility] Work Phone: Evaluation note* Diagnosis Onset Date [...] Stress headaches acute August 04, 2024 1:00pm [facility] Work Phone: Hospital Discharge instructions No data available for this section [facility] instructions[facility]ulatory Orders* Referral to Pain Management Time Frame: 02/01/24, Location: None [facility] Work Phone: Hospital Discharge instructionsAmbulatory Orders* Referral to Podiatry Time Frame: 04/29/24, Location: None [facility] Work Phone: Progress note No data available for this section [facility] Summary Purpose Family History No Family History [...] CREATED AUTHOR AUTHOR'S ORGANIZ ATION 06/07/2023 [facility] EPIC DATE CREATED AUTHOR AUTHOR'S ORGANIZ ATION 08/16/2023 [facility] DATE CREATED AUTHOR AUTHOR'S ORGANIZ ATION 05/19/2024 [facility] [address] [facility] DATE CREATED AUTHOR AUTHOR'S ORGANIZ ATION 08/10/2024 [facility] Care Teams (unrecognized sec tion and content) Team Status: Active Member Role Status Dates Penelope Garcia APRN ROASTERMAN-C Primary Care Provider Active Team Status: Inactive Member Role Status Dates Penelope Garcia APRN ROASTERMAN-C Primary Care Provider, Attending Provider Active Start: June 20, 2023 End: June 20, 2023 Team Status: Inactive Member Role Status Dates Penelope Garcia APRN ROASTERMAN-C Primary Care Provider, Attending Provider Active Start: August 06, 2023 End: August 06, 2023 Team Status: Inactive Member Role Status Dates Penelope Garcia APRN ROASTERMAN-C Primary Care Provider, Attending Provider Active Start: September 27, 2023 End: September 27, 2023 Team Status: Inactive Member Role Status Dates Penelope Garcia APRN ROASTERMAN-C Primary Care Provider, Attending Provider Active Start: February 01, 2024 End: February 01, 2024 Team Status: Active Member Role Status Dates Penelope Garcia APRN ROASTERMAN-C Primary Care Provider Active Start: April Khadijah Corbin CMA Attending Provider Active Start: April 22, 2024 Team Status: Inactive Member Role Status Dates Penelope Garcia APRN ROASTERMAN-C Primary Care Provider, Attending Provider Active Start: April 29, 2024 End: April 29, 2024 Team Status: Active Member Role Status Dates Penelope Garcia APRN ROASTERMAN-C Primary Care Provider, Attending Provider Active Start: April 30, 2024 Team Status: Inactive Member Role Status Dates Penelope Garcia APRN ROASTERMAN-C Primary Care Provider, Attending Provider Active Start: May 12, 2024 End: May 12, 2024 Team Status: Inactive Member Role Status Dates Penelope Garcia APRN ROASTERMAN-C Primary Care Provider, Attending Provider Active Start: [...] BE BASED ON THE PRIMARY CLINICAL RECORDS. [facility] [address] [facility]. provides no warranty or guarantee of the accuracy or completeness of information in this document.
[2024-09-08 08:10] VITALS: BP 127/93; PULSE 76; TEMP 36.6; O2SAT 96
[2024-09-08 09:00] VITALS: BP 158/84; BP 188/80; PULSE 77; PULSE 88; O2SAT 100; O2SAT 98
[2024-09-08] MEDS: BUPIVACAINE HCL 0.25% PF 25 MG/10 ML VIAL 4 ML INJ (09:11)
[2024-09-08] MEDS: METHYLPREDNISOLONE ACETATE 40 MG/ML VIAL 80 MG INJ (09:12)
[2024-09-08] MEDS: LIDOCAINE HCL 2% 400 MG/20 ML MDV 16 ML INJ (09:12)
--- NOTE | 2024-09-08 09:13 | P.ON_ITS ---
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 The site was marked.? Written informed consent was obtained and placed on the chart.? The patient was brought to the medical procedure unit and placed in the prone position.? A timeout was completed verifying correct patient, procedure, positioning, and special requirements.? The skin overlying the target points, the designated medial branch, were prepped and draped in the usual sterile fashion.? The target point was achieved with a 20-gauge 15 cm with a 10 mm curved active tip radiofrequency cannula under direct fluoroscopic visualizati on.? The needle was inserted at level L4 on the right side. Needle tip position was confirmed with lateral fluoroscopic position.? Motor stimulation was carried out at 2 Hz up to 5 volts with the absence of extremity activity.? This was repeated at level L5, S1 on right side.?? Sensory stimulation was carried out.? Concordant pain was realized at the above- mentioned sites.? Then radiofrequency lesioning was carried out times 90 seconds at 80 degrees times 2 lesions at each level.? The radiofrequency probe was removed prior to cannula removal.? The above-mentioned injectate was placed in 1 mL increments.? The needle was removed. The same procedure, with the same steps, was then completed on the left side at the same levels. Insertion sites were covered.? The patient was taken to the postoperative recovery area and monitored for an appropriate length of time before being found suitable for discharge in the company of a responsible adult.? Anesthesia: Local Surgeon: Katie Lipscomb Pathology: none sent Condition: stable Disposition: no change
== END 2024-09-08 09:20 | disposition home or self-care (01) ==
LOC: SURGOUT 07:30
PROVIDERS: Family Provider Physician Assistant; PCP Nurse Practitioner Family; Visit Provider Anesthesiology
DX: M54.50 Low back pain, unspecified (principal); M47.816 Spondylosis without myelopathy or radiculopathy, lumbar region
CPT/HCPCS: 64635; 64636; J0665; J1010

== ENCOUNTER 2024-09-19 11:52 | Outpatient (RCR) | payer OTHER, SELFPAY | END 2024-09-20 13:05 | disposition home or self-care (01) | LOC: PT 11:52 | PROVIDERS: Family Provider Physician Assistant; PCP Nurse Practitioner Family; Visit Provider Nurse Practitioner Family | DX: M47.816 Spondylosis without myelopathy or radiculopathy, lumbar region (principal); M48.02 Spinal stenosis, cervical region | CPT/HCPCS: 97750 ==

== ENCOUNTER 2024-10-09 10:54 | Outpatient (OUT) | payer OTHER, SELFPAY ==
--- OUTSIDE RECORDS SUMMARY | 2024-10-09 11:12 | XMS_ITS | CCD ---
Author Organization [facility] CliniSyal Care Team Providers Care Clothing Sales Assistant Name Role Phone KOLBY KIRK Admitting [...] le ROHRBACHERPENELOPE A Admitting Unavailab le Rohrbacher VICTIM WITNESS ADMINISTRATOR, Penelope Primary Care Provider Rohrbacher VICTIM WITNESS ADMINISTRATOR, Penelope Attending Provider Stalinrbjodier, Penelope Attending Unavailable Rohrbacher, Penelope Primary Care Unavailable Rohrbacher, Penelope Admitting Unavailable Rohrbacher VICTIM WITNESS ADMINISTRATOR, Penelope Primary Care Provider Rohrbacher VICTIM WITNESS ADMINISTRATOR, Penelope Attending Provider Giedraitis MD, Andrius Vytautas Attending Unavailable Giedraitis MD, Andrius Vytautas Attending Unavailable Giedraitis MD, Andrius Vytautas Attending Unavailable Giedraitis MD, Andrius Vytautas Attending Unavailable Giedraitis MD, Andrius Vytautas Attending Unavailable Giedraitis MD, Andrius Vytautas Attending Unavailable Allergies Allergy Classification Reported Allergen(s) Allergy Type Date of Onset Reaction(s) Facility (1 source) cefdinir Drug Allergy 5 [facility] Repository (9 sources) Penicillins Drug allergy (disorder) 3 Hives [facility] (9 sources) predniSONE Drug Allergy 2 Heartburn [facility] (1 source) traMADol Drug Allergy 3 [facility] (1 source) Pertussis Immune Globulin Drug allergy (disorder) 3 [facility] Repository (11 sources) spinach allergenic extract; Translations: [Spinach (substance)] Drug Allergy 4 Airway constriction (finding) [facility] (9 sources) bee venom protein (honey bee); Translations: [bee venom protein (honey bee)] Allergy to substance 4 Anaphylaxis [facility] (9 sources) diphtheria,pert ussis (acellular),te; Translations: [diphtheria,per tussis (acellular),te] Allergy to substance 4 Unknown Reaction [facility] (2 sources) Bee/Wasp/Ant venom; Translations: [Bee Stings] Drug allergy [facility] (2 sources) Penicillin; Translations: [penicillin] Drug Allergy [facility] (2 sources) Pertussis Vaccine; Translations: [Whooping-cough vaccine] Drug Allergy Airway constriction (finding) [facility] (2 sources) Sodium Bicarbonate; Translations: [Baking soda] Drug Allergy Red color (finding) [facility] (1 source) Penicillins Drug allergy (disorder) [address] [place] [address] Repository (1 source) predniSONE Drug Allergy [address] [place] [address] Repository Medications Current Medications Medication Drug Class(es) Dates Sig (Normalized) Sig (Original) Acetaminophen / HYDROcodone (1 source) Opioid Agonist Start: 06-13-2011 Vicodin 500 mg-5 mg Tab 1 tab(s), Oral, q4hr as needed for pain, 10 tab(s), Refill(s) 0, Take one tab by mouth every four hours as needed for pain Start Date: 06/13/11 Status: Ordered Albuterol (17 sources) beta2-Adrenergic Agonist Start: 01-30-2024 take 1 [...] Albuterol Sulfate 90 mcg/actuation HFA aerosol inhaler (4 sources) Start: 01-30-2024 take 1 puff(s) by [...] or wheezing 6.7 January 30, 2024 3:08pm [id number] 0.3 ml EPINEPHrine 1 mg/ml auto-injector (8 sources) alpha-Adrenergic Agonist, beta-Adrenergic Agonist, Catecholamine Start: 06-20-2023 Epinephrine 0.3 mg/0.3 mL auto-injector Active 0.3 ML SUBCUT Once as needed June 20, 2023 12:00am fluticasone / salmeterol (1 source) Corticosteroid, beta2-Adrenergic Agonist Start: 12-07-2009 take 1 puff(s) by inhalation once daily Advair 250 mcg-50 mcg Powder 1 puff(s), Inhalation, Daily, Refill(s) 0 Start Date: 12/07/09 Status: Ordered ibuprofen 800 mg oral tablet (17 sources) Nonsteroidal Anti-inflammatory Drug Start: 12-25-2023 End: [...] Drug Class(es) Dates Sig (Normalized) Sig (Original) ARIPiprazole 2 mg oral tablet (15 sources) Atypical Antipsychotic Start: 06-20-2023 End: 08-04-2024 take 1 tablet by mouth once daily Aripiprazole 2 mg tablet Discontinued 2 MG PO Daily 90 90 February 01, 2024 9:44am August 04, 2024 1:31pm ciclopirox 10 mg/ml medicated shampoo (16 sources) Start: 06-20-2023 End: 02-01-2024 Ciclopirox 1 % shampoo Discontinued TOPICAL June 20, 2023 12:00am February 01, 2024 9:32am Start: 06-20-2023 End: 02-01-2024 Ciclopirox 0.77 % cream Disc ontinued 1 APPLIC TOPICAL Daily June 20, 2023 12:00am February 01, 2024 9:32am Start: 06-20-2023 End: 02-01-2024 Ciclopirox Discontinued TOPI EBONY June 20, 2023 12:00am February 01, 2024 9:32am Diclofenac (8 sources) Nonsteroidal Anti-inflammatory Drug Start: 06-20-2023 End: [...] 12:00am doxycycline monohydrate 100 mg oral tablet (8 sources) Tetracycline-class Drug Start: 06-20-2023 End: 02-01-2024 take 1 tablet by mouth twice daily Doxycycline Monohydrate 100 mg tablet Discontinued 100 MG PO Twice daily 19 01June 20, 2023 12:00am February 01, 2024 9:32am famotidine 20 mg oral tablet (12 sources) Histamine-2 Receptor Antagonist Start: 02-01-2024 End: 08-04-2024 take 1 tablet by mouth once daily Famotidine 20 mg tablet Discontinued 20 MG PO Daily 90 February 01, 2024 9:45am August 04, 2024 1:31pm methylPREDNISolone 4 mg oral tablet (6 sources) Corticosteroid Start: 09-27-2023 End: 02-01-2024 take 1 tablet by mouth once Methylprednisolone (Medrol (Dominick)) 4 mg tablets,dose pack Discontinued 0 PO per package directions 20 09September 27, 2023 12:00am February 01, 2024 9:33am PO PER PKG DIR mupirocin 0.02 mg/mg topical ointment (8 sources) RNA Synthetase Inhibitor Antibacterial Start: 06-20-2023 End: 02-01-2024 Mupirocin 2 % ointment Discontinued 1 APPLIC TOPICAL Twice daily 21 10June 20, 2023 12:00am February 01, 2024 9:33am Problems Active Problems Problem Classification Problem Date Documented Date Episodic/Chronic Anxiety disorders (14 sources) Anxiety; Translations: [Anxiety disorder, unspecified] 06-20-2023 Chronic Asthma (13 sources) Unspecified asthma, uncomplicated; Translations: [Asthma] Onset: 01-02-2022 06-20-2023 Chronic Cardiac and circulatory congenital anomalies (9 sources) Congenital heart disease; 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, unspecified] 08-06-2023 Chronic Cardiac dysrhythmias (12 sources) Irregular heart beat; Translations: [Cardiac arrhythmia, [...] source) Premature labor 06-13-2013 Episodic Esophageal disorders (9 sources) Gastroesophageal reflux disease; Translations: [Gastro-esophageal reflux disease without esophagitis] 02-01-2024 Chronic Genitourinary congenital anomalies (7 sources) Congenital anomaly of the kidney; 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, unspecified] Onset: 05-12-2024 04-29-2024 Chronic Heart valve disorders (1 source) Heart murmur 06-13-2013 Episodic Miscellaneous mental health disorders (11 sources) Psychogenic headache; 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] 08-07-2023 Chronic Mood disorders (14 sources) Depressive disorder; Translations: [Depression] 06-20-2023 Chronic Osteoarthritis (12 sources) Unspecified osteoarthritis, unspecified site; Translations: [Arthritis] Onset: 01-02-2022 06-20-2023 Chronic Comment on above: Right wrist/arm Other acquired deformities (5 sources) Scoliosis, unspecified; Translations: [Scoliosis [and kyphoscoliosis], idiopathic] Onset: 04-11-2021 06-20-2023 Chronic Other acquired deformities (8 sources) Scoliosis deformity of spine; Translations: [Scoliosis, unspecified] 06-20-2023 Chronic Other acquired deformities (6 sources) Deformity of lower limb; Translations: [Unspecified acquired deformity of right thigh] 08-07-2023 Episodic Other acquired deformities (5 sources) Unspecified acquired deformity of right thigh; Translations: [Other acquired deformity of other parts of limb] 08-06-2023 Episodic Other bone disease and musculoskeletal deformities (1 source) 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 Other congenital anomalies (1 source) 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 Other connective tissue disease (8 sources) Triggering of digit; Translations: [Trigger finger, unspecified finger] 06-20-2023 Episodic Other connective tissue disease (3 sources) Trigger finger, unspecified finger; Translations: [Trigger finger (acquired)] 06-20-2023 Episodic Other nervous system disorders (9 sources) Carpal tunnel syndrome; Translations: [Carpal tunnel syndrome, unspecified upper limb] 06-20-2023 Chronic Other non-traumatic joint disorders (3 sources) Pain in right ankle and joints of right foot; Translations: [PAIN IN RIGHT ANKLE] Onset: 12-31-2021 Episodic Other screening for suspected conditions (not mental disorders or infectious disease) (6 sources) Patient encounter status; Translations: [Encounter for screening for osteoporosis] 04-29-2024 Episodic Other skin disorders (6 sources) Eruption; Translations: [Rash and other nonspecific skin eruption] 09-27-2023 Episodic Other skin disorders (1 source) Rash and other nonspecific skin eruption; Translations: [Rash and other nonspecific skin eruption] 09-27-2023 Episodic Other upper respiratory infections (10 sources) Maxillary sinusitis; Translations: [Chronic maxillary sinusitis] 06-20-2023 Chronic Residual codes; unclassified (4 sources) Family history of osteoporosis; Translations: [Family history of osteoporosis] 04-29-2024 Episodic Residual codes; unclassified (2 sources) Family history of osteoporosis; Translations: [Family history of osteoporosis] 04-29-2024 Episodic Residual codes; unclassified (2 sources) Acquired absence of both cervix and uterus; Translations: [Acquired absence of both cervix and uterus] 04-29-2024 Episodic Spondylosis; intervertebral disc disorders; other back problems (9 sources) Chronic low back pain; Translations: [Chronic low back pain] 02-01-2024 Episodic Sprains and strains (6 sources) Sprain of right ankle; Translations: [Sprain [...] US renal RTon 05-12-2024 US renal RT [facility] Main [address] [address] Ultrasound Report Signed Patient: Yanci Loco MR#: [id number] : 1985 Acct:[id number] Age/Sex: 38 / F ADM Date: 05/12/24 Loc: Room: Type: [facility] Attending Dr: Penelope Garcia APRN SUPERVISOR [employer] Ordering Provider: Penelope Garcia APRN, CNP Date [...] Whitney Jr., D.O.05/12/2024 4:24 PM Dictation Location: [place] [address] Tech: Vernell Pack Transcribed By: TANA 05/12/24 1624 Dictated By: Mike Whitney Jr, DO 05/12/24 1623 Signed By: 05/12/24 1624 Normal [facility] Basophils Auto (Bld) [#/Vol] on 04-30-2024 Basophils (Bld) [#/Vol] Automated basophil count 0.0-0.1 [facility] Basophils/100 WBC Auto (Bld) on 04-30-2024 Basophils/100 WBC (Bld) Automated basophil % 0.2-2.0 [facility] Cholesterol in LDL Calc [Mas s/Vol]on 04-30-2024 Cholesterol in LDL [Mass/Vol] Cholesterol in LDL [Mass/volume] in Serum or Plasma by calculation [facility] Comment on above: <100 mg/dl [id number] 0-129 mg/dl NEAR OR ABOVE [id number] mg/dl BORDERLINE [id number] mg/dl HIGH>190 mg/dl VERY HIGH Cholesterol in VLDL Calc [Ma ss/Vol]on 04-30-2024 Cholesterol in VLDL [Mass/Vol] Cholesterol in VLDL [Mass/volume] in Serum or Plasma by calculation [facility] Eosinophils/100 WBC Auto (Bl d)on 04-30-2024 Eosinophils/100 WBC (Bld) Automated eosinophil % 0.9-7.0 [facility] Erythrocyte distribution wid th Auto (RBC) [Ratio]on 04-30-2024 Erythrocyte distribution width (RBC) [Ratio] Erythrocyte distribution width [Ratio] by Automated count 11.0-15.0 [facility] Estimated glomerular filtrat ion rate (GFR) non- Americanon 04-30-2024 GFR/1.73 sq M.predicted among non-blacks MDRD (S/P/Bld) [Vol rate/Area] Estimated glomerular filtration rate (GFR) non- >=60 mL/min/1.73m 2 [facility] Globulin Calc (S) [Mass/Vol] on 04-30-2024 Globulin (S) [Mass/Vol] Serum globulin measurement by calculation (mass/volume) [facility] Hematocrit Auto (Bld) [Volum e fraction]on 04-30-2024 Hematocrit (Bld) [Volume fraction] Hematocrit [Volume Fraction] of Blood by Automated count 36.0-48.0 [facility] Hemoglobin [Mass/volume] in Bloodon 04-30-2024 Hemoglobin (Bld) [Mass/Vol] Hemoglobin [Mass/volume] in Blood 12.0-16.0 [facility] Laboratory - Chemistry and C hemistry - challengeon 04-30-2024 Albumin [Mass/Vol] 3.6 g/dL 3.4-5.0 [facility] ALP [Catalytic activity/Vol] 70 U/L 46-116 [facility] ALT [Catalytic activity/Vol] 28 U/L 14-59 [facility] AST [Catalytic activity/Vol] 17 U/L 15-37 [facility] Bilirubin [Mass/Vol] 0.3 mg/dL 0.2-1.0 [facility] Calcium [Mass/Vol] 8.6 mg/dL 8.5-10.1 [facility] Chloride [Moles/Vol] 104 mmol/L 98-107 [facility] Cholesterol [Mass/Vol] 227 mg/dL High <=200 [facility] Cholesterol in HDL [Mass/Vol] 59 mg/dL 40-60 [facility] Comment on above: > or =60 mg/dl - LOW CARDIOVASCULAR RISK<40 mg/dl - HIGH CARDIOVASCULAR RISK CO2 [Moles/Vol] 26.5 mmol/L 21.0-32.0 [facility] Creatinine [Mass/Vol] 1.02 mg/dL 0.55-1.02 [facility] GFR/1.73 sq M.predicted MDRD (S/P/Bld) [Vol rate/Area] mL/min/{1.73_m2} >=60 mL/min/1.73m 2 [facility] Glucose [Mass/Vol] 86 mg/dL 74-106 [facility] Potassium [Moles/Vol] 3.6 mmol/L 3.5-5.1 [facility] Protein [Mass/Vol] 7.4 g/dL 6.4-8.2 [facility] Sodium [Moles/Vol] 140 mmol/L 136-145 [facility] Triglyceride [Mass/Vol] 165 mg/dL High <=150 [facility] Urea nitrogen [Mass/Vol] 16.0 mg/dL 7.0-18.0 [facility] Urea nitrogen/Creatinine [Mass ratio] 15.7 mg/mg [facility] Laboratory - Hematology and Cell countson 04-30-2024 Immature granulocytes/100 WBC (Bld) 0.1 % 0.0-0.5 [facility] Leukocytes [#/volume] correc souleymane for nucleated erythrocytes in Blood by Automated counon 04-30-2024 WBC corrected for nucl RBC Auto (Bld) [#/Vol] Leukocytes [#/volume] corrected for nucleated erythrocytes in Blood by Automated coun 4.0-11.0 [facility] Lymphocytes Auto (Bld) [#/Vo l]on 04-30-2024 Lymphocytes (Bld) [#/Vol] Lymphocytes [#/volume] in Blood by Automated count 1.2-3.8 [facility] Lymphocytes/100 WBC Auto (Bl d)on 04-30-2024 Lymphocytes/100 WBC (Bld) Lymphocytes/100 leukocytes in Blood by Automated count 20.5-60.0 [facility] MCH Auto (RBC) [Entitic mass ]on 04-30-2024 MCH (RBC) [Entitic mass] MCH [Entitic mass] by Automated count 26.7-34.0 [facility] MCHC Auto (RBC) [Mass/Vol]on 04-30-2024 MCHC (RBC) [Mass/Vol] MCHC [Mass/volume] by Automated count 29.9-35.2 [facility] MCV Auto (RBC) [Entitic vol] on 04-30-2024 MCV (RBC) [Entitic vol] MCV [Entitic volume] by Automated count 81.0-99.0 [facility] Monocytes Auto (Bld) [#/Vol] on 04-30-2024 Monocytes (Bld) [#/Vol] Automated blood monocyte count 0.3-0.8 [facility] Monocytes/100 WBC Auto (Bld) on 04-30-2024 Monocytes/100 WBC (Bld) Automated monocyte % 1.7-12.0 [facility] Neutrophils Auto (Bld) [#/Vo l]on 04-30-2024 Neutrophils (Bld) [#/Vol] Neutrophils [#/volume] in Blood by Automated count 1.4-6.5 [facility] Neutrophils/100 WBC Auto (Bl d)on 04-30-2024 Neutrophils/100 WBC (Bld) Automated neutrophil % 43.0-75.0 [facility] No Panel Informationon 04-30 Eosinophils # (Auto) 0.1 10 3/uL 0.0-0.7 [facility] Immature Granulocyte # (Auto) 0.01 10 3/uL 0.00-0.03 [facility] Platelet mean volume Auto (B ld) [Entitic vol]on 01-29-2025 Platelet mean volume (Bld) [Entitic vol] Platelet mean volume [Entitic volume] in Blood by Automated count 9.5-13.5 [facility] Platelets Auto (Bld) [#/Vol] on 04-30-2024 Platelets (Bld) [#/Vol] Platelets [#/volume] in Blood by Automated count 150-450 [facility] RBC Auto (Bld) [#/Vol]on RBC (Bld) [#/Vol] Erythrocytes [#/volume] in Blood by Automated count 4.20-5.40 [facility] Serum or plasma albumin/glob ulin mass ratioon 04-30-2024 Albumin/Globulin [Mass ratio] Serum or plasma albumin/globulin mass ratio [facility] Serum or plasma anion gap de terminationon 04-30-2024 Anion gap [Moles/Vol] Serum or plasma an ion gap determination [facility] Serum or plasma total choles terol/high density lipoprotein (HDL) cholesterol mass lucie 04-30-2024 Cholesterol.total/Cho lesterol in HDL [Mass ratio] Serum or plasma total cholesterol/high density lipoprotein (HDL) cholesterol mass rat [facility] Comment on above: 3.3 - 4.4 [...] mGy = na DAP = na Normal [facility] Consent for Treatmenton 07-31 Consent for Treatment [id number] .00TIFF Normal [facility] Physician Orderon 08-14-2023 Physician Order [id number]# 1.00TIFF Normal [facility] XR ANKLE RT MIN 3 [...] by: Santy RO Date: 2021-12-31 22:43 Normal [facility] CT NECK ST W CONon 2 [...] by: LIZANDRO DELACRUZ Date: 2021-09-13 17:01 Normal [facility] XR HIP LT 2 3V W [...] by: SANNA HOOD Date: 2021-04-18 11:23 Normal [facility] Vital Signs Date Time Vital Sign Value Performing Clinician Bushra sanchez 09-10-2024 10:0400 Body height 165.1 cm [facility] 09-10-2024 10:040 Body mass index (BMI) [Ratio] 31.8 kg/m2 [facility] 09-10-2024 10:09040 Body temperature 96.4 [degF] [facility] 09-10-2024 10:040 Body weight 86.63 kg [facility] 09-10-2024 10:09040 Diastolic blood pressure 72 mm[Hg] [facility] 09-10-2024 10:09-0400 Heart rate 79 /min [facility] 09-10-2024 10:09-0400 SaO2% (BldA) [Mass fraction] 100 % [facility] 09-10-2024 10:09-0400 Systolic blood pressure 108 mm[Hg] [facility] 08-04-2024 13:04-0400 Body height 165.1 cm Penelope Garcia APRN Work Phone: [facility] 08-04-2024 13:04-0400 Body mass index (BMI) [Ratio] 31.9 kg/m2 Penelope Garcia APRN Work Phone: [facility] 08-04-2024 13:04-0400 Body temperature 96.7 [degF] Penelope Garcia APRN Work Phone: [facility] 08-04-2024 13:04-0400 Body weight 87.08 kg Penelope Garcia APRN Work Phone: [facility] 08-04-2024 13:04-0400 Heart rate 77 /min Penelope Jose SCHULTZ Work Phone: [facility] 08-04-2024 13:04-0400 SaO2% (BldA) [Mass fraction] 99 % Penelope Garcia APRN Work Phone: [facility] 04-29-2024 12:59-0500 Body height 165.1 cm [facility] 04-29-2024 12:59-0500 Body temperature 98.4 [degF] [facility] 04-29-2024 12:59-0500 Diastolic blood pressure 72 mm[Hg] [facility] 04-29-2024 12:59-0500 Heart rate 80 /min [facility] 04-29-2024 12:59-0500 SaO2% (BldA) [Mass fraction] 99 % [facility] 04-29-2024 12:59-0500 Systolic blood pressure 116 mm[Hg] [facility] 02-01-2024 09:28-0400 Body height 165.1 cm [facility] 02-01-2024 09:28-0400 Body mass index (BMI) [Ratio] 30.9 kg/m2 [facility] 02-01-2024 09:28-0400 Body temperature 96.8 [degF] [facility] 02-01-2024 09:280400 Body weight 84.48 kg [facility] 02-01-2024 09:28-0400 Diastolic blood pressure 76 mm[Hg] [facility] 02-01-2024 09:28-0400 Heart rate 70 /min [facility] 02-01-2024 09:28-0400 SaO2% (BldA) [Mass fraction] 98 % [facility] 02-01-2024 09:28-0400 Systolic blood pressure 124 mm[Hg] [facility] 09-27-2023 13:58-0400 Body height 165.1 cm [facility] 09-27-2023 13:58-0400 Body mass index (BMI) [Ratio] 30.4 kg/m2 [facility] 09-27-2023 13:58-0400 Body weight 83.06 kg [facility] 09-27-2023 13:58-0400 Diastolic blood pressure 76 mm[Hg] [facility] 09-27-2023 13:58-0400 Heart rate 70 /min [facility] 09-27-2023 13:58-0400 Respiratory rate 12 /min [facility] 09-27-2023 13:58-0400 Systolic blood pressure 122 mm[Hg] [facility] 08-06-2023 15:26-0400 Body height 165.1 cm [facility] 08-06-2023 15:26-0400 Body mass index (BMI) [Ratio] 29.7 kg/m2 [facility] 08-06-2023 15:26-0400 Body temperature 97.5 [degF] [facility] 08-06-2023 15:26-0400 Body weight 81.19 kg [facility] 08-06-2023 15:26-0400 Diastolic blood pressure 74 mm[Hg] [facility] 08-06-2023 15:26-0400 Heart rate 71 /min [facility] 08-06-2023 15:26-0400 Respiratory rate 18 /min [facility] 08-06-2023 15:26-0400 SaO2% (BldA) [Mass fraction] 98 % [facility] 08-06-2023 15:26-0400 Systolic blood pressure 110 mm[Hg] [facility] 06-20-2023 14:49-0400 Body height 165.1 cm [facility] 06-20-2023 14:49-0400 Body mass index (BMI) [Ratio] 29.7 kg/m2 [facility] 06-20-2023 14:49-0400 Body weight 81.19 kg [facility] 06-20-2023 14:49-0400 Diastolic blood pressure 80 mm[Hg] [facility] 06-20-2023 14:49-0400 Heart rate 78 /min [facility] 06-20-2023 14:49-0400 SaO2% (BldA) [Mass fraction] 98 % [facility] 06-20-2023 14:49-0400 Systolic blood pressure 116 mm[Hg] [facility] Encounters Encounter Date Encounter Type Care Provider Facility Start: 09-10-2024 End: 09-10-2024 ambulatory [facility] Work Phone: Start: 09-10-2024 End: 09-10-2024 Patient encounter procedure [facility] Work Phone: Start: 08-04-2024 End: 08-04-2024 ambulatory Penelope Garcia APRN Work Phone: [facility] Work Phone: Start: 08-04-2024 End: 08-04-2024 Patient encounter procedure Penelope Garcia APRN Work Phone: [facility] Work Phone: Start: 07-28-2024 End: 07-28-2024 ambulatory Katie Lipscomb MD Facility:[facility] Start: 06-23-2024 End: 06-23-2024 ambulatory Andjennifer Lipscomb MD Facility:[facility] [place] Start: 05-26-2024 End: 05-26-2024 ambulatory Katie Lipscomb MD Facility:[facility] Start: 05-12-2024 End: 05-12-2024 Patient encounter procedure Penelope Garcia VICTIM WITNESS ADMINISTRATOR Work Phone: [facility] [place] Work Phone: Start: 05-12-2024 End: 05-12-2024 ambulatory Penelope Garcia VICTIM WITNESS ADMINISTRATOR Work Phone: [facility] Work Phone: Start: 04-30-2024 Non-patient / Non-visit Ruthie Garcia VICTIM WITNESS ADMINISTRATOR Work Phone: [facility] Work Phone: Start: 04-29-2024 Patient encounter status [facility] Start: 04-29-2024 End: 04-29-2024 ambulatory [facility] Work Phone: Start: 04-29-2024 End: 04-29-2024 Encounter for general adult medical examination without abnormal findings [facility] Start: 04-29-2024 End: 04-29-2024 Patient encounter procedure [facility] Work Phone: Start: 04-28-2024 End: 04-28-2024 ambulatory Katie Lipscomb MD Facility:[facility] Start: 04-22-2024 Non-patient / Non-visit [facility] Work Phone: Start: 03-10-2024 End: 03-10-2024 ambulatory Katie Lipscomb MD Facility: [place] Start: 02-11-2024 End: 02-11-2024 ambulatory Katie Lipscomb MD Facility:[facility] Start: 02-01-2024 End: 02-01-2024 ambulatory [facility] Work Phone: Start: 02-01-2024 End: 02-01-2024 Patient encounter procedure [facility] Work Phone: Start: 09-27-2023 End: 09-27-2023 ambulatory [facility] Work Phone: Start: 09-27-2023 End: 09-27-2023 Patient encounter procedure [facility] Work Phone: Start: 08-14-2023 End: 08-15-2023 ambulatory PENELOPE GARCIA Facility:[facility] Start: 08-14-2023 End: 08-14-2023 Patient encounter procedure PENELOPE GARCIA [facility] Start: 08-06-2023 End: 08-06-2023 ambulatory [facility] Work Phone: Start: 08-06-2023 End: 08-06-2023 Patient encounter procedure [facility] Work Phone: Start: 06-20-2023 End: 06-20-2023 ambulatory [facility] Work Phone: Start: 06-20-2023 End: 06-20-2023 Patient encounter procedure [facility] Work Phone: Start: 06-06-2023 End: [...] Start: 01-09-2022 End: 01-10-[address] CASH DNAIEL Facility:[facility] Start: 12-31-2021 End: 01-01-2022 ambulatory KOLBY [...] Activity Detail Author Start: 04-29-2024 Patient referral [facility] Work Phone: Start: 02-01-2024 Patient referral [facility] Work Phone: Start: 06-20-2023 Patient referral [facility] Work Phone: Comprehensive metabo lic 2000 panel - Serum or Plasma [facility] DXA Skeletal system. axial Views for bone density [facility] Patient Education Low back pain in adults [facility] Work Phone: Patient referral [facility] Work Phone: [facility] - [facility] Payers Date Payer Category Payer Self-pay 2023 Unknown 2017 Medicaid [id number] 1985 Unknown [id number] 2.16.84 0.1.161221.3.579.2.593 1985 Unknown [id number] 2.16.84 0.1.007218.3.579.2.593 1986 Unknown [id number] 2.16.84 0.1.769196.3.579.2.593 1986 Unknown [id number] 2.16.84 0.1.955920.3.579.2.593 1986 Unknown [id number] 2.16.84 0.1.756531.3.579.2.593 1986 Unknown [id number] 2.16.84 0.1.764165.3.579.2.1259 1986 Unknown [id number] 2.16.84 0.1.452037.3.579.2.1259 1986 Unknown [id number] 2.16.84 0.1.558695.3.579.2.1259 1986 Unknown [id number] 2.16.84 0.1.949394.3.579.2.1259 1986 Unknown [id number] 2.16.84 0.1.211112.3.579.2.1259 1986 Unknown [id number] 2.16.84 0.1.783858.3.579.2.1259 1986 Unknown [id number] 2.16.840 .1.248566.3.579.2.1259 1986 Unknown [id number] 2.16.840 .1.725028.3.579.2.1259 1986 Unknown [id number] 2.16.840 .1.144517.3.579.2.1259 1986 Unknown [id number] 2.16.840 .1.032665.3.579.2.1259 1986 Unknown [id number] 2.16.840 .1.212835.3.579.2.1259 1986 Unknown [id number] 2.16.8 40.1.601909.3.579.2.727 1986 Unknown [id number] 2.16. 840.1.880845.3.579.2.196 1986 Unknown [id number] 2.16. 840.1.121729.3.579.2.196 1986 Unknown [id number] 2.16. 840.1.301177.3.579.2.196 1986 Unknown [id number] 2.16. 840.1.289330.3.579.2.196 1986 Unknown [id number] 2.16. 840.1.023482.3.579.2.196 1986 Unknown [id number] 2.16. 840.1.785670.3.579.2.196 1959 Unknown [id number] Medicaid [employer] [id number] Unknown [id number] 2.16.8 40.1.945541.3.579.2.531 Social History Date Type Detail Facility Start: [facility]20-[facility]23 [facility] Start: 1985 Sex Assigned At Female F [facility] Tobacco smoking status [facility] Start: 02-01-2024 End: 02-01-2024 Tobacco smoking status [facility] Ex-smoker (finding) [facility] Start: 04-29-2024 End: 09-10-2024 Sex Female (finding) [facility] Clinical Notes 04-07-2021 to 08-04-2024 Note Date & Type Note Facility 08-04-2024 Evaluation note Diagnosis Onset Date Resolution Anxiety acute August 04, 2024 1:00pm Arthritis acute August 04, 2024 1:00pm Chronic lower back pain acute M 2024 1:00pm Deformity of right lower extremity acute August 04, 2024 1: 00pm Depression acute August 04, 2024 1:00pm GERD (gastroesophageal reflux disease) acute August 04, 2024 1: 00pm Stress headaches acute August 04, 2024 1:00pm [facility] Work Phone: 1(805) 384-886702-10-2025 Radiology Diagnostic study [facility] Main [place] [address] [place] [address] Ultrasound Report Signed Patient: Yanci Loco MR#: [id number] : 1985 Acct:[id number] Age/Sex: 38 / F ADM Date: 5 Loc: Room: Type: [facility] Attending Dr: Penelope Garcia APRN, NP-C Ordering [...] Whitney Jr., D.OPer05/12/2024 4:24 PM Dictation Location: [place] [address] Tech: Vernell Sirena Transcribed By: TANA 05/12/241623 Dictated By: Mike Whitney Jr, DO 05/12/241622 Signed By: 05/12/241623 [facility]01-28-2025 Evaluation note* Diagnosis Onset Date Resolution Status Admit Date Family history of osteoporosis acute April 29, 2024 12:56pm History of hysterectomy acute J anuary 2024 12:56pm Kidney anomaly, congenital acute April 29, 2024 12:56pm Screening for osteoporosis acute April 29, 2024 12:56pm Sprain of right ankle acute Apr 12:56pm [facility] Work Phone: 1(914) 637-255611-01-2024 Evaluation note* Diagnosis Onset Date Resolution Status [...] Apr 12:56pm Wellness examination acute 2024 12:56pm [facility] Work Phone: 1(183) 967-643803-20-2024 Hospital Discharge instructionsAmbulatory Orders* Referral to Orthopedic Surgery Time Frame: 06/20/23, Location: None Selected [facility] Work Phone: 1(557) 948-453310-10-2022 NotePROCEDURE: XR ANKLE RT MIN 3 VIEWS HISTORY: Contusion of right ankle ; acute anterior right ankle pain since injury 16 days ago COMPARISON: XR ankle right 12/31/2021 FINDINGS: BONES:No fracture, acute abnormality, or significant arthropathy. SOFT TISSUES:No visible soft tissue swelling. EFFUSION:None visible. OTHER: Negative. IMPRESSION: 1. Normal examination. Electronically authenticated by: LIZANDRO DELACRUZ Date: 2022-01-09 16:12[id number] NotePROCEDURE: XR FEMUR LT COMPARISON: None. HISTORY: Unspecified fall FINDINGS: BONES:No fracture, acute abnormality, or significant arthropathy. SOFT TISSUES:Negative. No visible soft tissue swelling. EFFUSION:None visible. OTHER: Negative. IMPRESSION: No acute abnormality Electronically authenticated by: TEODORO WHITLEY Date: 2021-04-07 09:14[facility] No data available for this section [facility] Diagnosis Onset Date Resolution Status Anxiety acute Asthma acute Depression acute Irregular heart beat acute Maxillary sinusitis acute Scoliosis acute Trigger finger of right hand acute [facility] Work Phone: Evaluation note* Diagnosis Onset Date Resolution Status Anxiety acute Asthma acute Depression acute Irregular heart beat acute Maxillary sinusitis acute Scoliosis acute Trigger finger of right hand acute Congenital heart defect acut e Irregular heart beat acute Scoliosis acute [facility] Work Phone: Evaluation note* Diagnosis Onset Date Resolution Status Congenital heart defect acut e Deformity of right lower extremity acute Irregular heart beat acute Scoliosis acute Stress headaches acute Trigger finger of right hand acute Rash acute [facility] Work Phone: Evaluation note* Diagnosis Onset Date Resolution Status Anxiety acute Chronic lower back pain acut e Deformity of right lower extremity acute Depression acute GERD (gastroesophageal reflux disease) acute Stress headaches acute [facility] Work Phone: Evaluation note* Diagnosis Onset Date Resolution Status Admit Date Anxiety acute August 04, 2024 1:00pm Arthritis acute August 04, 2024 1:00pm Chronic lower back pain acute M 2024 1:00pm Deformity of right lower extremity a cute August 04, 2024 1:00pm Depression acute August 04, 2024 1:00pm GERD (gastroesophageal reflu x disease) acute August 04, 2024 1: 00pm Stress headaches acute August 04, 2024 1:00pm [facility] Work Phone: Hospital Discharge instructions No data available for this section [facility] Orders* Referral to Pain Management Time Frame: 02/01/24, Location: None [facility] Work Phone: Hospital Discharge instructionsAmbulatory Orders* Referral to Podiatry Time Frame: 04/29/24, Location: None [facility] Work Phone: Progress note No data available for this section [facility] Summary Purpose Family History Relationship Condition Age [...] Complaint and Reason for Visit Chief Complaint Admit Date 6 month f/u August 04, 2024 1:00pm Discuss Disability September 10, 2024 10:0 7am Reason for Visit Admit Date Anxiety August 04, 2024 1:00pm Arthritis August 04, 2024 1:00pm Chronic lower back pain August 04, 2024 1: 00pm Deformity of right lower extremity August 042024 1:00pm Depression August 04, 2024 1:00pm GERD (gastroesophageal reflux disease) M ay 2024 1:00pm Stress headaches August 04, 2024 1:00pm Chief Complaint establish - trigger finger Reason [...] 1:00pm Stress headaches August 04, 2024 1:00pm Chief Complaint Admit Date 6 month f/u August 04, 2024 1:00pm Discuss Disability September 10, 2024 10:0 7am Additional Source Comments INFORMATION SOURCE (unrecogn ized section and content) DATE CREATED AUTHOR 01/10/2022 [facility] DATE CREATED AUTHOR AUTHOR'S ORGANIZ ATION 06/07/2023 [facility] EPIC DATE CREATED AUTHOR AUTHOR'S ORGANIZ ATION 08/16/2023 [facility] DATE CREATED AUTHOR AUTHOR'S ORGANIZ ATION 05/19/2024 [facility] DATE CREATED AUTHOR AUTHOR'S ORGANIZ ATION 08/10/2024 [facility] Care Teams (unrecognized sec tion and content) Team Status: Active Member Role Status Dates Penelope Garcia APRN [employer] Primary Care Provider Active Team Status: Inactive Member Role Status Dates Penelope Garcia APRN [employer] Primary Care Provider, Attending Provider Active Start: June 20, 2023 End: June 20, 2023 Team Status: Inactive Member Role Status Dates Penelope Garcia APRN [employer] Primary Care Provider, Attending Provider Active Start: August 06, 2023 End: August 06, 2023 Team Status: Inactive Member Role Status Dates Penelope Garcia APRN [employer] Primary Care Provider, Attending Provider Active Start: September 27, 2023 End: September 27, 2023 Team Status: Inactive Member Role Status Dates Penelope Garcia APRN [employer] Primary Care Provider, Attending Provider Active Start: February 01, 2024 End: February 01, 2024 Team Status: Active Member Role Status Dates Penelope Garcia APRN [employer] Primary Care Provider Active Start: April Khadijah Corbin CMA Attending Provider Active Start: April 22, 2024 Team Status: Inactive Member Role Status Dates Penelope Garcia APRN [employer] Primary Care Provider, Attending Provider Active Start: April 29, 2024 End: April 29, 2024 Team Status: Active Member Role Status Dates Penelope Garcia APRN [employer] Primary Care Provider, Attending Provider Active Start: April 30, 2024 Team Status: Inactive Member Role Status Dates Penelope Garcia APRN [employer] Primary Care Provider, Attending Provider Active Start: May 12, 2024 End: May 12, 2024 Team Status: Inactive Member Role Status Dates Penelope Garcia APRN [employer] Primary Care Provider, Attending Provider Active Start: August 04, 2024 End: August 04, 2024 Team Status: Inactive Member Role Status Dates Penelope Garcia APRN [employer] Primary Care Provider, Attending Provider Active Start: September 10, 2024 End: September 10, 2024 Goals (unrecognized section and content) Goals [...] BE BASED ON THE PRIMARY CLINICAL RECORDS. [employer] [facility]. provides no warranty or guarantee of the accuracy or completeness of information in this document.
--- NOTE | 2024-10-09 11:22 | P.CN_ITS ---
Consult Note: HPI Data of Consult Patient: known to practice within the last 3 years Requesting Physician: Anna Stroud NP Primary Care Provider: KARIN MALONE Family Provider: CASH DANIEL Consult Narrative Reason for consult: f/u Narrative: Yanci Loco a 39 year old female presents for evaluation and management of chronic back pain and chronic neck. pt has failed heat, ice, tylenol, NSAIDs, and 6 weeks of PT/HEP for neck and low back pain . Pain in low back 3-4/10 increasing to 8/10 with standing, walking, lifting, pushing, pulling, bending, and sleep. previous lumbar MRI shows bulging disc at L4-5 and L5-S1 as well as lumbar spondylosis. pt recently underwent bilateral L4-5 L5-S1 rfa with mild relief per pt. wants to discuss increasing neck pain. cc:: CC: Anna Stroud NP Review of Systems 2 ROS0 Status of ROS 10 or more systems reviewed and unremark able except as noted in history and below Musculoskeletal Reports: back pain and extremity pain PFSH PFSH Medical History Osteoarthritis ?M19.90 - Unspecified osteoarthritis, unspecified site (ICD-10) Carpal tunnel syndrome ?G56.00 - Carpal tunnel syndrome, unspecified upper limb (ICD-10) Acid reflux ?K21.9 - Gastro-esophageal reflux disease without esophagitis (ICD-10) Asthma ?J45.909 - Unspecified asthma, uncomplicated (ICD-10) Heart murmur ?R01.1 - Cardiac murmur, unspecified (ICD-10) Irregular heartbeat ?I49.9 - Cardiac arrhythmia, unspecified (ICD-10) Surgical History History of carpal tunnel release ?Z98.890 - Other specified postprocedural states (ICD-10) History of hysterectomy ?Z90.710 - Acquired absence of both cervix and uterus (ICD-10) History of tubal ligation ?Z98.51 - Tubal ligation status (ICD-10) History of surgery on arm ?Z98.890 - Other specified postprocedural states (ICD-10) Social History Smoking status: Former smoker Little interest or pleasure in doing things: not at all Feeling down, depressed, or hopeless: not at all Meds Home Medications and Allergies Home Medications ?Medication ?Instructions ?Recorded ?Confirmed ?Type albuterol sulfate 90 mcg/actuation 2 puff inhalation Q 6H PRN wheezing 11/15/22 09/08/24 History aerosol inhaler ciclopirox 0.77 % topical cream 1 applic topical Q12H 11/15/22 09/08/24 History diclofenac sodium 1 % topical gel 2 g topical QID 10/3109/08/24 History ciclopirox 1 % shampoo 5 ml topical QWEEK 04/16/23 09/08/24 History epinephrine 0.3 mg/0.3 mL 0.3 mg (0.3 mL) IM ONCE PRN 10/01/23 09/08/24 Rx injection, auto-injector allergic reaction #2 ea famotidine 20 mg tablet (Pepcid) 20 mg PO BID #10 tabs 10/01/23 09/08/24 Rx aripiprazole 2 mg tablet 2 mg PO DAILY 02/11/2409/08 History ibuprofen 800 mg tablet mg 09/08/24 History Allergies Allergy/AdvReac Type Severity Reaction Status Date / Time Penicillins Allergy Severe Rash Verified 09/08/24 08:20 tramadol Allergy Severe Swelling Verified 09/08/24 08:20 of Lip/Tongue/Throat Pertussis Vaccines Allergy Mild Unknown Verified 09/08/24 08:20 bees AdvReac Mild sob Uncoded 09/08/24 08:20 Exam Constitutional Documenting provider has reviewed patient's vital signs: yes Common normals: no apparent distress, oriented x3, healthy appearing, alert and well nourished General appearance: cooperative [facility] Common normals: normocephalic, hearing grossly normal bilaterally and moist oral mucous membranes Head and scalp: normocephalic Eye Common normals: PERRL Pupil: PERRL Neck & C-Spine Common normals: full ROM General: normal visual inspection Cervical spine: paracervical muscle tenderness; no pain with cervical ROM and no cervical spine tenderness Other: negative spurlings strength 5/5 in BUE Chest Common normals: inspection of chest normal Respiratory Common normals: normal respiratory effort, no retractions and no use of accessory muscles Back & Pelvis Thoracic spine/upper back: thoracic spinal tenderness and paraspinal muscle tenderness Lumbar spine/lower back: ROM limited, pain with ROM, lumbar spinal tenderness and straight leg raise negative bilaterally Other: strength 5/5 in BLE sensation intact BLE positive facet loading and tenderness L1-3 negative L4-S1 myofascial pain noted over upper thoracic spine, pt has poor posture and hump Back image (female): 2 1. myofascial pain Neuro Common normals: oriented x3, CN's II-XII intact bilaterally, moves all extremities, no focal motor deficits, no sensory deficits noted and deep tendon reflexes 2+ bilaterally Sensorium/orientation: alert Motor exam: no movement abnormalities noted Psych Common normals: mental status grossly normal, thought process normal, cooperative, affect normal, speech normal and activity/motor behavior normal Speech: normal speech Thought process: normal thought process Assessment and Plan Assessment and Plan (1) Lumbar spondylosis: Assessment and Plan: 09/08/24 bilateral L4/5 L5/S1 facet RFA 50% improvement (2) Lumbar stenosis with neurogenic claudication: (3) Myofascial pain: (4) Cervical spondylosis: Plan bilateral L4-5 L5-S1 medial branch RFA for axial facet mediated low back pain providing significant improvement on exam, can consider alternative facet levels in the future recommend PT/Massage for neck and thoracic pain, likely myofascial continue current medications f/u 3 months, sooner if needed
== END 2024-10-09 10:55 | disposition home or self-care (01) ==
LOC: PM 10:54
PROVIDERS: Family Provider Physician Assistant; PCP Nurse Practitioner Family; Visit Provider Nurse Practitioner
DX: M47.816 Spondylosis without myelopathy or radiculopathy, lumbar region (principal); M48.062 Spinal stenosis, lumbar region with neurogenic claudication; M79.18 Myalgia, other site; M47.812 Spondylosis without myelopathy or radiculopathy, cervical region
CPT/HCPCS: G0463

== ENCOUNTER 2024-10-10 15:00 | Outpatient (RCR) | payer OTHER, SELFPAY | END 2024-11-18 07:00 | disposition home or self-care (01) | LOC: PT 15:00 | PROVIDERS: Family Provider Physician Assistant; PCP Nurse Practitioner Family; Visit Provider Anesthesiology | DX: M47.812 Spondylosis without myelopathy or radiculopathy, cervical region (principal); M54.6 Pain in thoracic spine | CPT/HCPCS: 97012; 97014; 97110; 97140; 97162 ==

== ENCOUNTER 2024-10-16 14:12 | Outpatient (OUT) | payer OTHER, SELFPAY ==
--- NOTE | 2024-10-16 14:32 | PM.CN ---
Consult Note: HPI Data of Consult Patient: known to practice within the last 3 years Requesting Physician: Anna Stroud NP Primary Care Provider: KARIN MALONE Family Provider: CASH DANIEL Consult Narrative Reason for consult: low back pain Narrative: Yanci owen pleasant 39 year old female presents for evaluation of acute on chronic low back pain. patient was finding benefit to bilateral L4-5 L5-S1 facet RFA, however 2 nights ago she developed severe low back pain without sciatica. no injury or fall. denies fevers, chills, body aches. pain today 5/10 stabbing ache increasing with forward flexion, standing, walking, sleeping, weather, and activity. utilizing zynex brace with benefit. currently on ibuprofen and flexeril without improvement. cc:: CC: Anna Stroud NP Review of Systems ROS Musculoskeletal Reports: back pain and neck pain [facility] Medical History Osteoarthritis �M19.90 - Unspecified osteoarthritis, unspecified site (ICD-10) Carpal tunnel syndrome �G56.00 - Carpal tunnel syndrome, unspecified upper limb (ICD-10) Acid reflux �K21.9 - Gastro-esophageal reflux disease without esophagitis (ICD-10) Asthma �J45.909 - Unspecified asthma, uncomplicated (ICD-10) Heart murmur �R01.1 - Cardiac murmur, unspecified (ICD-10) Irregular heartbeat �I49.9 - Cardiac arrhythmia, unspecified (ICD-10) Surgical History History of carpal tunnel release �Z98.890 - Other specified postprocedural states (ICD-10) History of hysterectomy �Z90.710 - Acquired absence of both cervix and uterus (ICD-10) History of tubal ligation �Z98.51 - Tubal ligation status (ICD-10) History of surgery on arm �Z98.890 - Other specified postprocedural states (ICD-10) Social History Smoking status: Former smoker Little interest or pleasure in doing things: not at all Feeling down, depressed, or hopeless: not at all Meds Home Medications and Allergies Home Medications �Medication �Instructions �Recorded �Confirmed �Type albuterol sulfate 90 mcg/actuation 2 puff inhalation Q6H PRN wheezing 11/15/22 09/08/24 History aerosol inhaler ciclopirox 0.77 % topical cream 1 applic topical Q12H 11/15/22 09/08/24 History diclofenac sodium 1 % topical gel 2 g topical QID 11/15/22 09/08/24 History ciclopirox 1 % shampoo 5 ml topical QWEEK 04/16/23 09/08/24 History epinephrine 0.3 mg/0.3 mL 0.3 mg (0.3 mL) IM ONCE PRN 10/01/23 09/08/24 Rx injection, auto-injector allergic reaction #2 ea famotidine 20 mg tablet (Pepcid) 20 mg PO BID #10 tabs 10/01/23 09/08/24 Rx aripiprazole 2 mg tablet 2 mg PO DAILY 02/11/24 09/08/24 History ibuprofen 800 mg tablet mg 09/08/24 History Allergies Allergy/AdvReac Type Severity Reaction Status Date / Time Penicillins Allergy Severe Rash Verified 09/08/24 08:20 tramadol Allergy Severe Swelling Verified 09/08/24 08:20 of Lip/Tongue/Throat Pertussis Vaccines Allergy Mild Unknown Verified 09/08/24 08:20 bees AdvReac Mild sob Uncoded 09/08/24 08:20 Exam Constitutional Documenting provider has reviewed patient's vital signs: yes Common normals: no apparent distress, oriented x3, healthy appearing, alert and well nourished General appearance: cooperative [facility] Common normals: normocephalic, hearing grossly normal bilaterally and moist oral mucous membranes Head and scalp: normocephalic Eye Common normals: PERRL Pupil: PERRL Neck & C-Spine Common normals: full ROM General: normal visual inspection Chest Common normals: inspection of chest normal Respiratory Common normals: normal respiratory effort, no retractions and no use of accessory muscles Back & Pelvis Lumbar spine/lower back: pain with ROM, lumbar spinal tenderness, paraspinal muscle tenderness, straight leg raise positive right and straight leg raise positive left; no paraspinal muscle spasm Sacroiliac joints: SI joint(s) abnormal Other: significant hyperalgesia and diffuse pain sensation intact BLE strength 5/5 in BLE Neuro Common normals: oriented x3 Sensorium/orientation: alert Psych Common normals: mental status grossly normal, thought process normal, cooperative, affect normal, speech normal and activity/motor behavior normal Speech: normal speech Thought process: normal thought process Results Additional Findings Additional findings: If on a controlled substance or opioids, I have checked an [place] report on this patient and there are no aberrancies noted in the prescribing history.��If on a controlled substance or opioid a drug screen was completed and reviewed within the last year, and if there has not been a drug screen completed we ordered one today to monitor higher risk, state monitored pain medication use. As part of providing excellent, safe, comprehensive care, the following was completed at our patient's visit: 1. A medication reconciliation and review to ensure accurate knowledge of current/active medications, including asking our patients to inform us about any atwn-ypf-hsudvta medications or herbal remedies/nutritional supplements/alternative remedies. 2. A review to specifically ensure our patients have had annual screening for screening for depression, screening for tobacco use, and screening for unhealthy alcohol use. For concerning screenings had a discussion with the patient, provided patient education, and recommended follow-up with primary care provider when appropriate. If patient noted with a risk of falling, they received education on strength, gait, and balance training to prevent future risk of falling. Portions of this note may have been carried over from the previous visit and updated as appropriate. Please note this office utilizes paper charting in addition to the electronic medical record. A list of current medications, vitals, and PMH is available there as the clinical staff outside of myself do not have access to [facility] charting during the clinic day operations. As part of providing quality comprehensive care the current medications, vitals, and PMH were reviewed in the paper chart. Assessment and Plan Assessment and Plan (1) Back strain: (2) Lumbar spondylosis: (3) Myofascial pain: Plan acute on chronic low back pain, stop flexeril. start baclofen 10mg tid prn pain/spasms. stop otc nsaids, start medrol dose pack. f/u 2 weeks for evaluation
== END 2024-10-16 14:13 | disposition home or self-care (01) ==
LOC: PM 14:12
PROVIDERS: Family Provider Physician Assistant; PCP Nurse Practitioner Family; Visit Provider Nurse Practitioner
DX: M47.816 Spondylosis without myelopathy or radiculopathy, lumbar region (principal); M79.18 Myalgia, other site; S39.012A Strain of muscle, fascia and tendon of lower back, initial encounter
CPT/HCPCS: G0463

== ENCOUNTER 2024-10-30 14:54 | Outpatient (OUT) | payer OTHER, SELFPAY ==
--- OUTSIDE RECORDS SUMMARY | 2023-04-24 10:30 | XMS_ITS | Continuity of Care Document ---
Author Organization [facility] Address [address] [place] [address] Phone Care Team Providers Care Ct Technologist Name Role Phone Ayo Jackson DDS Unavailable Unavailable Allergies, Adverse Reactions, Alerts Substance Reaction Status Criticality BUPROPION HCL Active No Information bee venom protein (honey bee) Active No Information tramadol Active No Information Pertussis Vaccines Active No Inform ation Penicillins Unknown Active No Information Medications Medication Instructions Dosage Effective Dates (start - stop) Status Comments ibuprofen 800 mg tablet take 1 tablet by oral route 3 times every day with food 800 MG - Active EpiPen 0.3 mg/0.3 mL injection, auto-injector inject 0.3 milliliter by intramuscular route once as needed for anaphylaxis 0.3 MG - Active Ventolin HFA 90 mcg/actuation aerosol inhaler inhale 2 puff by inhalation route every 4 - 6 hours as needed - Active clindamycin HCl 300 mg capsule take 1 capsule by oral route every 8 hours 300 MG - No Longer Active clindamycin HCl 300 mg capsule take 1 capsule by oral route every 6 hours 300 MG - No Longer Active Procedures Procedure Date Comp Oral Eval New/estab Patient 2023 Intraoral-complete Series (bw) 24 Post Op Visit Dental Nutrit Couns For Control Of [place] Dis Dec Extract; Erupted Th/exposted Rt 023 Limited Oral Eval Oral Hygiene Instruction Nutrit Couns For Control Of [place] Dis July Extract; Erupted Th/exposted Rt Extract; Erupted Th/exposted Rt 022 Intraoral-periapical 1st Film 1 [id number] Additional Jan Limited Oral Eval Oral Hygiene Instruction Intraoral-periapical 1st Film 1 [id number] Additional May [id number] Additional May Limited Oral Eval Limited Oral Eval Oral Hygiene Instruction Intraoral-periapical 1st Film 0 PPE Prophylaxis Adult Oral Hygiene Instruction Prophylaxis Adult Oral Hygiene Instruction Intraoral-complete Series (bw) 19 Comp Oral Eval New/estab Patient 2018 Advance Directives Directive Yes / No Effective Date File Name No Information Encounters Encounter Description Practice Location Reason(s) For Visit Diagnoses Date Provider Providers Copied on Encounter [facility], [address] [place] [address], [id number], [place] tel:[phone] Dental Clinic pe (chief complaint) Encounter for screening for dental disordersBody mass index [BMI] 27.0-27.9, adult 4 [facility] [address] [place] [address], [id number], [place]. tel:[phone] [facility], [address] [place] [address], [id number], [place] tel:[phone] Dental Clinic pov (chief complaint) Encounter for screening for dental disorders 3 Enrike George. [address] [place] [address], [id number], [place]. tel:[phone] [facility], [address] [place] [address], [id number], [place] tel:[phone] Dental Clinic cons (chief complaint) Encounter for screening for dental disorders 3 [facility] Victor Manuel. [address], [place], [id number], [place]. tel:[phone] [facility], [address], [place], [id number], [place] tel:[phone] Dental Clinic PE (chief complaint) Encounter for screening for dental disorders 3 Enrike George. [address], [place], [id number], [place]. tel:[phone] [facility], [address], [place], [id number], [place] tel:[phone] Dental Clinic EXT (chief complaint) Encounter for screening for dental disorders 2 [facility] Victor Manuel. [address], [place], [id number], [place]. tel:[phone] [facility], [address], [place], [id number], [place] tel:[phone] Dental Clinic D EMg (chief complaint) Encounter for screening for dental disorders 1 Porter [facility] Solo. [address] [place], [address], [place]. tel:[phone] [facility], [address] [place] [address], [id number], [place] tel:[phone] Dental Clinic dental EMERGENCY (chief complaint)d ental EMERGENCY (chief complaint) Encounter for screening for dental disorder 1 Sabas Saravia. [address], [place], [id number], [place]. tel:[phone] [facility], [address], [place], [id number], [place] tel:[phone] Dental Clinic ER (chief complaint) Encounter for screening for dental disorder 0 Osman [facility] Tejas. [address], [place], [id number], [place]. tel:[phone] [facility], [address], [place], [id number], [place] tel:[phone] Dental Clinic Encounter [facility] disorders [facility] [address], [place], [id number], [place]. tel:[phone] [facility], [address] [place] [address], [id number], tel:[phone] Dental Clinic Encounter for screening for dental disorders 9 [facility] [address], [place], [id number], [place]. tel:[phone] [facility], [address] [place] [address], [id number], tel:[phone] Dental Clinic Dental New (chief complaint) Encounter for screening for dental disorders 9 [facility]. [address] [place] [address], [id number], [place]. tel:[phone] Family History Family Member Type Diagnosis Age At Onset No Information Payers Payer name Insurance type Covered alliance party ID Authorkaya solange(s) D [employer] [facility] [id number] D Medicaid [facility] [id number] Social History Type Description Quantity Date Captured Comments Alcohol Use Details Unknown Caffeine Use Details Unknown Tobacco Use Status Occasional cigarette smoker Smoking Status Heavy tobacco smoker Sex Female Sexual Orientation Straight or heterosexual Gender Identity Female Vital Signs Date / Time: Height Weight BMI Pulse Rate Blood Pressure Temperature Respiratory Rate Body Surface Area Head Circumference Head Circ. Percentile Wt./Samson. Percentile BMI percentile Pulse Ox Inhaled Ox 5:04 PM 65.00 in 74.843 kg (165.00 lbs) 27.4 6 kg/m eter (2) 82 /min 112/81 mm[Hg] 97.70 F Chief Complaint And Reason For Visit From encounter dated '04/24/2023 14:30'. pe (chief complaint). Description: pe Reason For Referral Reason For Referral No Information Plan Of Treatment Date Type Action Status Goal Unhealthy drug use screening . Due on due Goal Influenza vaccine. Due on Ja due Goal Tdap. Due on due Goal Tdap Vaccine. Due on 2023 due Goal HPV. Due on due Goal RLP. Due on due Goal PRAPARE ASSESSMENT. Due on J due Goal Hepatitis C screening. Due o n due Goal Depression screening. Due on due Goal Dietary management education , guidance, and counseling completed Goal RLP. Due on due Goal Hepatitis C screening. Due o n due Goal PRAPARE ASSESSMENT. Due on N due Goal Depression screening. Due on due Goal Tdap Vaccine. Due on 2022 due Goal Unhealthy drug use screening . Due on due Goal Influenza vaccine. Due on No due Goal HPV. Due on due Goal Tdap. Due on due Goal Influenza vaccine. Due on Oc due Goal Depression screening. Due on due Goal Unhealthy drug use screening . Due on due Goal RLP. Due on due Goal PRAPARE ASSESSMENT. Due on O due Goal Tdap. Due on due Goal Tdap Vaccine. Due on 2022 due Goal Hep A. Due on du e Goal Hepatitis C screening. Due o n due Goal HPV. Due on due Goal Tdap. Due on due Goal PRAPARE ASSESSMENT. Due on A due Goal Hep A. Due on du e Goal Depression screening. Due on due Goal Tdap Vaccine. Due on 2022 due Goal RLP. Due on due Goal Influenza vaccine. Due on Au due History Of Present Illness Encounter Date Complaint History Of Prese nt Illness pe pe pov cons con PE PE EXT EXT D EMg D EMG dental EMERGENCY dental EMERGENC Y , tooth pain Canine to Canine, UR, UL , Pain level 4-5 dental EMERGENCY ER ER Dental New Dental New Functional Status Date Functional Assessmen t No Information Instructions Date Instruction Additional Infor cody Giving encouragement to exercise Related to Body mass index [BMI] 27.0-27.9, adult Dietary management e ducation, guidance, and counseling Related to Body mass index [BMI] 27.0-27.9, adult Assessments Type Assessment Date assessment Encounter for screening for dent al disorders assessment Body mass index [BMI] 27.0-27.9, adult Patient Care Teams Name Effective Dates (start - stop) Status Members No Information
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
--- OUTSIDE RECORDS SUMMARY | 2024-06-04 09:00 | XMS_ITS ---
Author Organization The [facility] in [place] Address [address] [place] [address] Care Team Providers Care Tree Care Foreman Name Role Phone Penelope Garcia CNP Primary Care Provider U Nii Tong [facility] [phone] Allergies Allergen (clinical drug ingredient) Drug/Non Drug [...] Answer Notes Tobacco use: Nonsmoker Vital Signs Heart Rate 74 /min 06/04/2024 Respiratory Rate 16 /min 06/04/2024 Height 65 in 06/04/2024 Weight 170 lbs 06/04/2024 BMI 28.29 kg/m2 06/04/2024 Oximetry 98 % 06/04/2024 Encounters Encounter Location Date Provider Diagnosis [facility] (PODIATRY) [address] [place] [address] [place] [address] 06/04/2024 Nii Carnes Contusion of right ankle, [...] Notes * [place] LOCOB:1985 (38 yo F)Acc No.[id number]:06/04/2024 Follow Up Patient: Ana Lilia MICHELa Provider: Raymundo Carnes DPM, MS :1985 A ge:38 Y S ex:Female Date:06/04/2024 Address:[address] [place], [place] [id number] Pcp:Penelope Gacria CNP Check In:01:02 PM ESTCheck O ut:01:36 [...] Carnes DPM, MS Date: 06/04/2024 Generated for [facility] jaylan/Unruly/Kierasmitting on: 10/30/2024 02:56 PM EDT History and Physical Notes * [...]
--- OUTSIDE RECORDS SUMMARY | 2024-10-30 14:57 | XMS_ITS | Encounter Summary ---
Author Organization [facility] Address [address] [place] [address] Care Team Providers Care Cone Examiner Name Role Phone Cash Pollard Unavailable Penelope Garcia NP Primary Care Provider Ce Reyes MD Unavailable Encounter Details Date Type Department Care Team (Late Contact Info) Description 07/03/2023 Clinisync Result Encounter [...] Department Care Team (Late Contact Info) Description 10/13/2025 1:20 PM EDT Office Visit [facility] [address] [place] [address] Saige Hernandez MD [address] [facility] [address] [place] [address] documented as of this encounter Procedures Procedure Name Priority Date/Time Associated Diagnosis Comments XR HAND 3+ VIEWS RIGHT 07/03/2023 6:50 AM EDT documented in this encounter Results * XR hand 3+ views right (07/03/2023 6:50 AM EDT) Anatomical Region Laterality Modality Upper Extremities, Hand Right [facility] 07/03/2023 6:50 AM EDT Narrative 07/03/2023 6:52 AM EDT [address] [address] XRay Report Signed Patient: DEBORAH LOCO MR#: [id number] : 1985 Acct:[id number] Age/Sex: 38 / F ADM Date: 07/02/23 Loc: EC Attending Dr: Lizandro Iniguez M.D. Ordering Physician: Lizandro Iniguez M.D. Date of Service: 07/02/23 Procedure(s): XR hand RT min 3V Accession Number(s): [id number] cc: Lizandro Iniguez M.D.; CASH POLLARD [place] [address] Patient Name: DEBORAH LOCO MRN: [id number] date: 1985 Sex: F Assigned Patient Location: Current Patient Location: Accession/Order Number: [id number] Exam Date: 07/02/2023 09:16 Report Date: 07/03/2023 [...] Signed By: 07/03/23 0652 DD/ 0650 TD/TT: Department Helper: Procedure Note Radiology, Radiologist, - 07/05/2023 [place] [address] XRay Report Signed Patient: DEBORAH LOCO AMR#: [id number] : 1985Acct:[id number] Age/Sex: 38 / FADM Date: 07/02/23 Loc: EC Attending Dr: Lizandro Iniguez M.D. Ordering Physician: Lizandro Iniguez M.D. Date of Service: 07/02/23 Procedure(s): XR hand RT min 3V Accession Number(s): [id number] cc: Lizandro Iniguez M.D.; CASH POLLARD [place] [address] Patient Name: DEBORAH LOCO MRN: [facility]:[id number] date: 1985 Sex: F Assigned Patient Location: Current Patient Location: Accession/Order Number: [id number] Exam Date: 07/02/2023 09:16 Report Date: 07/03/2023 [...] 06:50 Dictated By: Lizandro Godfrey M.D. Signed By:07/03/23 0652 DD/ 0650 TD/TT: Department Helper: us Generic External Data Provider IMG XR PROCEDURES Final Result documented in this encounter Visit Diagnoses Not on filedocumented in this encounter Care Teams Cone Examiner Relationship Specialty Start Date End Date Cash Pollard PA [address] [facility] [address] [place], [place] [id number] PCP - [facility] 07/01/22 04/01/24 Penelope Garcia NP [address] [place] [address] [place] [address] PCP - General Family Medicine 10/03/23 Ce Reyes MD [address] [facility] 110 [place], [place] [address] PCP - [facility] 04/02/24 documented as of this encounter
--- OUTSIDE RECORDS SUMMARY | 2024-10-30 14:57 | XMS_ITS | Encounter Summary ---
Author Organization [facility] Address [address] [place] [address] Care Team Providers Care Middle [employer] History Teacher Name Role Phone Ekta Pollard Unavailable [phone] Penelope Garcia NP Primary Care Provider Ce Reyes MD Unavailable Encounter Details Date Type Department Care Team ([facility] Contact Info) Description 11/11/2022 Abstract [facility] [address] [facility] [address] [facility] [address] [place] [address] Saige Hernandez MD [address] [facility] [address] [facility] 350 [place] [address] Social History Tobacco Use Types [...] Upcoming Encounters Date Type Department Care Team ([facility] Contact Info) Description 10/13/2025 1:20 PM EDT Office Visit [facility] [address] [place] [address] Saige Hernandez MD [address] [facility] [address] [place] [address] documented as of this encounter Visit Diagnoses Not on filedocumented in this encounter Care Teams Middle [employer] History Teacher Relationship Specialty Start Date End Date Ekta Pollard PA [address] [place] [address] PCP - [facility] 07/01/22 04/01/24 Penelope Garcia NP [address] [place] [address] PCP - General Family Medicine 10/03/23 Ce Reyes MD [address] [place] [address] PCP - [facility] 04/02/24 documented as of this encounter
--- OUTSIDE RECORDS SUMMARY | 2024-10-30 14:57 | XMS_ITS | Encounter Summary ---
Author Organization [facility] Address [address] [place] [address] Care Team Providers Care Live In Companion Name Role Phone Ekta Pollard Unavailable [phone] Penelope Garcia NP Primary Care Provider Ce Reyes MD Unavailable Encounter Details Date Type Department Care Team (Late Contact Info) Description 05/17/2023 Abstract [facility] [address] [facility] 110 [place] [phone] Ce Reyes MD [address] [facility] 110 [place], [place] [phone] Social History Tobacco Use Types Packs/Day Years [...] Office Visit [facility] [address] [address] [facility] 350 [place] [address] Saige Hernandez MD [address] [facility] 350 [place], [place] [phone] documented as of this encounter Visit Diagnoses Not on filedocumented in this encounter Care Teams Live In Companion Relationship Specialty Start Date End Date Ekta Pollard PA [address] [place] [address] PCP - [facility] [employer] 07/01/22 04/01/24 Penelope Garcia NP [facility] [place] [address] PCP - General Family Medicine 10/03/23 Ce Reyes MD [address] [place] [address] PCP - [facility] 04/02/24 documented as of this encounter
--- OUTSIDE RECORDS SUMMARY | 2024-10-30 14:57 | XMS_ITS | Encounter Summary ---
Author Organization [facility] Address [address] [place] [address] Care Team Providers Care Armored Service Technician Name Role Phone Ekta Pollard Unavailable [phone] Penelope Garcia NP Primary Care Provider Ce Reyes MD Unavailable Encounter Details Date Type Department Care Team (Late Contact Info) Description 05/30/2023 Abstract [facility] 112 [facility] 110 [place] [phone] Ce Reyes MD [address] [facility] 110 [place], [place] [address] Social History Tobacco Use Types Packs/Day Years [...] Office Visit [facility] [address] [facility] [address] [facility] 350 [place] [address] Saige Hernandez MD [address] [facility] 350 [place], [place] [phone] documented as of this encounter Visit Diagnoses Not on filedocumented in this encounter Care Teams Armored Service Technician Relationship Specialty Start Date End Date Ekta Pollard PA [address] [place] [address] PCP - [facility] MERGERS AND ACQUISITIONS MANAGER 07/01/22 04/01/24 Penelope Garcia NP [facility] [place] [address] PCP - General Family Medicine 10/03/23 Ce Reyes MD [address] [place] [address] PCP - [facility] 04/02/24 documented as of this encounter
--- OUTSIDE RECORDS SUMMARY | 2024-10-30 14:57 | XMS_ITS | Encounter Summary ---
Author Organization [facility] Address [address] [place] [address] Care Team Providers Care Social Media Content Specialist Name Role Phone Ekta Pollard Unavailable [phone] Penelope Garcia NP Primary Care Provider Ce Reyes MD Unavailable Encounter Details Date Type Department Care Team (Late Contact Info) Description 11/21/2022 Abstract [facility] [address] [facility] 110 [place] [phone] Ce Reyes MD [address] [place] [facility] 110 [place] [address] Social History Tobacco Use Types Packs/Day Years [...] Office Visit [facility] [address] [facility] 350 [place] [address] Saige Hernandez MD [address] [facility] 350 [place] [address] documented as of this encounter Visit Diagnoses Not on filedocumented in this encounter Care Teams Social Media Content Specialist Relationship Specialty Start Date End Date Ekta Pollard PA [address] [place] [address] PCP - [facility] AIR BRUSH ARTIST 07/01/22 04/01/24 Penelope Garcia NP [address] [facility] [place] [address] PCP - General Family Medicine 10/03/23 Ce Reyes MD [address] [place] [address] PCP - [facility] AIR BRUSH ARTIST 04/02/24 documented as of this encounter
--- OUTSIDE RECORDS SUMMARY | 2024-10-30 14:57 | XMS_ITS | Encounter Summary ---
Author Organization [facility] Address [address] [place] [address] Care Team Providers Care Door Person Name Role Phone Ekta Pollard Unavailable [phone] Penelope Garcia NP Primary Care Provider Ce Reyes MD Unavailable Encounter Details Date Type Department Care Team (Late Contact Info) Description 05/30/2023 Abstract [facility] 112 [facility] 110 [place] [phone] Ce Reyes MD [address] [place] [facility] 110 [place], [place] [phone] Social History Tobacco Use Types Packs/Day Years [...] Office Visit [facility] [address] [facility] [address] [address] [facility] 350 [place] [address] Saige Hernandez MD [address] [facility] 350 [place], [place] [address] documented as of this encounter Visit Diagnoses Not on filedocumented in this encounter Care Teams Door Person Relationship Specialty Start Date End Date Ekta Pollard PA [address] [place] [address] PCP - [facility] RING SPINNER 07/01/22 04/01/24 Penelope Garcia NP [facility] [facility] [place] [address] PCP - General Family Medicine 10/03/23 Ce Reyes MD [address] [place] [address] PCP - [facility] 04/02/24 documented as of this encounter
--- OUTSIDE RECORDS SUMMARY | 2024-10-30 14:57 | XMS_ITS | Encounter Summary ---
Author Organization [facility] Address [address] [place] [address] Care Team Providers Care Flosser Name Role Phone Ekta Pollard Unavailable [phone] Penelope Garcia NP Primary Care Provider Ce Reyes MD Unavailable Encounter Details Date Type Department Care Team (Late Contact Info) Description 10/25/2022 Abstract [facility] [address] [facility] 110 [place] [phone] Ekta Pollard PA [address] [place] [facility] 110 [place] [address] Social History Tobacco Use Types Packs/Day Years [...] Care Team (Late st Contact Info) Description 10/13/2025 1:20 PM EDT Office Visit [facility] [address] [facility] 350 [place] [address] Saige Hernandez MD [address] [facility] 350 [place] [address] documented as of this encounter Visit Diagnoses Not on filedocumented in this encounter Care Teams Flosser Relationship Specialty Start Date End Date Ekta Pollard PA [address] [place] [address] PCP - [facility] INTERNET SYSTEMS ADMINISTRATOR 07/01/22 04/01/24 Penelope Garcia NP [address] [facility] [place] [address] PCP - General Family Medicine 10/03/23 Ce Reyes MD [address] [place] [address] PCP - [facility] INTERNET SYSTEMS ADMINISTRATOR 04/02/24 documented as of this encounter
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
--- OUTSIDE RECORDS SUMMARY | 2024-10-30 14:57 | XMS_ITS | Encounter Summary ---
Author Organization [facility] Address [address] [place] [address] Care Team Providers Care Dining Room Cashier Name Role Phone Ekta Pollard Unavailable [phone] Penelope Garcia NP Primary Care Provider Ce Reyes MD Unavailable Encounter Details Date Type Department Care Team (Late Contact Info) Description 10/26/2022 Abstract [facility] [address] [facility] 110 [place] [phone] Ekta Pollard PA [address] [facility] 110 [place] [address] Social History Tobacco Use Types Packs/Day Years [...] Office Visit [facility] [address] [facility] [address] [facility] 350 [place] [address] Saige Hernandez MD [address] [facility] 350 [place] [address] documented as of this encounter Visit Diagnoses Not on filedocumented in this encounter Care Teams Dining Room Cashier Relationship Specialty Start Date End Date Ekta Pollard PA [address] [place] [address] PCP - [facility] VP OF MARKETING 07/01/22 04/01/24 Penelope Garcia NP [address] [facility] [place] [address] PCP - General Family Medicine 10/03/23 Ce Reyes MD [address] [place] [address] PCP - [facility] VP OF MARKETING 04/02/24 documented as of this encounter
--- OUTSIDE RECORDS SUMMARY | 2024-10-30 14:57 | XMS_ITS | Encounter Summary ---
Author Organization [facility] Address [address] [place] [address] Care Team Providers Care Hands Assembler Name Role Phone Ekta Pollard Unavailable [phone] Penelope Garcia NP Primary Care Provider Ce Reyes MD Unavailable Encounter Details Date Type Department Care Team (Late st Contact Info) Description 12/11/2022 Orders Only [facility] [address] [place] [address] A, Unknown Practice [address] [place], [place] [address] Social History Tobacco Use Types Packs/Day Years [...] Office Visit [facility] [address] [facility] [facility] [address] [place] [address] Saige Hernandez MD [address] [place] [address] documented as of this encounter [...] on filedocumented in this encounter Care Teams Hands Assembler Relationship Specialty Start Date End Date Ekta Pollard PA 112 [facility] 110 [place] [address] PCP - [facility] 07/01/22 04/01/24 Penelope Garcia NP [address] [place] [address] PCP - General Family Medicine 10/03/23 Ce Reyes MD [address] [place] [address] PCP - [facility] WIND TURBINE BLADE REPAIR TECHNICIAN 04/02/24 documented as of this encounter
--- OUTSIDE RECORDS SUMMARY | 2024-10-30 14:57 | XMS_ITS | Encounter Summary ---
Author Organization [facility] Address [address] [place] [address] Care Team Providers Care Conveyor System Dispatcher Name Role Phone Ekta Pollard Unavailable [phone] Penelope Garcia NP Primary Care Provider Ce Reyes MD Unavailable Encounter Details Date Type Department Care Team (Late Contact Info) Description 12/25/2022 [facility] [address] [place] [address] A, Unknown Practice [address] [place], [place] [address] Social History Tobacco Use Types Packs/Day Years [...] Description 10/13/2025 1:20 PM EDT Office Visit [facility] [address] [facility] [address] [facility] 350 [place] [address] Saige Hernandez MD [address] [facility] [address] [place] [address] documented as of this encounter [...] on filedocumented in this encounter Care Teams Conveyor System Dispatcher Relationship Specialty Start Date End Date Ekta Pollard PA 112 [facility] 110 [place] [address] PCP - [facility] 07/01/22 04/01/24 Penelope Garcia NP [address] [place] [address] [place] [address] PCP - General Family Medicine 10/03/23 Ce Reyes MD [address] [place] [address] 110 [place] [address] PCP - [facility] 04/02/24 documented as of this encounter
--- OUTSIDE RECORDS SUMMARY | 2024-10-30 14:57 | XMS_ITS | Encounter Summary ---
Author Organization [facility] Address [address] [place] [address] Care Team Providers Care Life Skills Coordinator Volunteer Name Role Phone Ekta Pollard Unavailable [phone] Penelope Garcia NP Primary Care Provider Ce Reyes MD Unavailable Encounter Details Date Type Department Care Team (Late Contact Info) Description 04/18/2023 [facility] [address] [place] [address] A, Unknown Practice [address] [place], [place] [address] Social History Tobacco Use Types Packs/Day Years [...] Office Visit [facility] [address] [facility] [address] [place] [address] Saige Hernandez MD [address] [facility] [address] [place] [address] documented as of this encounter [...] on filedocumented in this encounter Care Teams Life Skills Coordinator Volunteer Relationship Specialty Start Date End Date Ekta Pollard PA 112 [facility] 110 [place] [address] PCP - [facility] 07/01/22 04/01/24 Penelope Garcia NP [address] [place] [address] [place] [address] PCP - General Family Medicine 10/03/23 Ce Reyes MD [address] [place] [address] 110 [place] [address] PCP - [facility] 04/02/24 documented as of this encounter
--- OUTSIDE RECORDS SUMMARY | 2024-10-30 14:57 | XMS_ITS | Encounter Summary ---
Author Organization [facility] Address [address] [place] [address] Care Team Providers Care Leasing Professional Name Role Phone Ekta Pollard Unavailable [phone] Penelope Garcia NP Primary Care Provider Ce Reyes MD Unavailable Encounter Details Date Type Department Care Team (Late Contact Info) Description 07/03/2023 Orders Only [facility] [address] [facility] 110 [place] [address] Unallocated, Noms MD Zhao [address] [place], [place] [phone] Social History Tobacco Use Types Packs/Day Years [...] Visit [facility] [address] [facility] [address] [place] [address] Saige Hernandez MD [address] [facility] [address] [place] [address] documented as of this encounter [...] on filedocumented in this encounter Care Teams Leasing Professional Relationship Specialty Start Date End Date Ekta Pollard PA [address] [facility] 110 [place], [place] [address] PCP - [facility] 07/01/22 04/01/24 Penelope Garcia NP [address] [place] [address] [place] [address] PCP - General Family Medicine 10/03/23 Ce Reyes MD [address] [facility] 110 [place], [place] [address] PCP - [facility] 04/02/24 documented as of this encounter
--- OUTSIDE RECORDS SUMMARY | 2024-10-30 14:57 | XMS_ITS | Encounter Summary ---
Author Organization [facility] Address [address] [place] [address] Care Team Providers Care Bin Tripper Operator Name Role Phone Ekta Pollard Unavailable [phone] Penelope Garcia NP Primary Care Provider Ce Reyes MD Unavailable Encounter Details Date Type Department Care Team (Late Contact Info) Description 10/05/2022 Abstract [facility] [address] [facility] 110 [place] [address] Ekta Pollard PA [address] [facility] 110 [place] [address] Social History Tobacco Use Types Packs/Day Years [...] Office Visit [facility] [address] [facility] [address] [facility] 350 [place] [address] Saige Hernandez MD [address] [facility] [address] [facility] 350 [place] [address] documented as of this encounter Visit Diagnoses Not on filedocumented in this encounter Care Teams Bin Tripper Operator Relationship Specialty Start Date End Date Ekta Pollard PA [address] [place] [address] PCP - [facility] INSTRUMENT LENS GRINDER APPRENTICE 07/01/22 04/01/24 Penelope Garcia NP [address] [facility] [address] PCP - General Family Medicine 10/03/23 Ce Reyes MD [address] [place] [address] PCP - [facility] INSTRUMENT LENS GRINDER APPRENTICE 04/02/24 documented as of this encounter
--- OUTSIDE RECORDS SUMMARY | 2024-10-30 14:57 | XMS_ITS | Encounter Summary ---
Author Organization [facility] Address [address] [place] [address] Care Team Providers Care Safety Sealer Name Role Phone Ekta Pollard Unavailable [phone] Penelope Garcia NP Primary Care Provider Ce Reyes MD Unavailable Encounter Details Date Type Department Care Team (Late Contact Info) Description 10/24/2022 Abstract [facility] [address] [facility] 110 [place] [address] Ekta Pollard PA [address] [place] [facility] 110 [place] [address] Social History Tobacco Use Types Packs/Day Years [...] Office Visit [facility] [address] [facility] [address] [facility] 350 [place] [address] Saige Hernandez MD [address] [facility] [address] [facility] 350 [place] [address] documented as of this encounter Visit Diagnoses Not on filedocumented in this encounter Care Teams Safety Sealer Relationship Specialty Start Date End Date Ekta Pollard PA [address] [place] [address] PCP - [facility] AIRCRAFT SKIN BURNISHER 07/01/22 04/01/24 Penelope Garcia NP [address] [facility] [place] [address] PCP - General Family Medicine 10/03/23 Ce Reyes MD [address] [place] [address] PCP - [facility] AIRCRAFT SKIN BURNISHER 04/02/24 documented as of this encounter
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
--- OUTSIDE RECORDS SUMMARY | 2024-10-30 14:57 | XMS_ITS | Encounter Summary ---
Author Organization [facility] Address [address] [place] [address] Care Team Providers Care Pattern Perforating Machine Operator Name Role Phone Cash Pollard Unavailable [phone] Penelope Garcia NP Primary Care Provider Ce Reyes MD Unavailable Encounter Details Date Type Department Care Team (Late st Contact Info) Description 12/22/2022 Clinisync Result Encounter N[facility] External Department Unsolicited Cash Pollard PA 112 [facility] 110 [place] [address] Social History Tobacco Use Types Packs/Day Years [...] Office Visit [facility] [address] [place] [address] Saige Hernandez MD [address] [place] [address] documented as of this encounter Procedures Procedure Name Priority Date/Time Associated Diagnosis Comments XR FINGER LT MIN 2V 12/22/2022 1 :50 PM EDT documented in this encounter Results * XR FINGER LT MIN 2V (12/22/2022 1:50 PM EDT) Anatomical Region Laterality Modality Other 12/22/2022 1:50 PM EDT Narrative 12/22/2022 1:50 [place] [address] XRay Report Signed Patient: DEBORAH LOCO MR#: [id number] : 1985 Acct:[id number] Age/Sex: 37 / F ADM Date: 12/22/22 Loc: [facility] Attending Dr: CASH POLLARD Ordering Physician: CASH POLLARD Date of Service: 12/22/22 Procedure(s): XR finger LT min 2V Accession Number(s): [id number] cc: CASH POLLARD [place] [address] Patient Name: DEBORAH LOCO MRN: [id number] date: 1985 Sex: F Assigned Patient Location: [facility] Current Patient Location: [facility] Accession/Order Number: [id number] Exam Date: 12/22/2022 13:15 Report Date: 12/22/2022 [...] By: Nii Quarles M.D. Signed By: 12/22/22 1356 DD/ 1350 TD/TT: Hr Operations Advisor: Procedure Note Radiology, Radiologist, MD - 12/22/[address] [address] XRay Report Signed Patient: DEBORAH LOCO AMR#: [id number] : 1985Acct:[id number] Age/Sex: 37 / FADM Date: 12/22/22 Loc: RAD Attending Dr: CASH POLLARD Ordering Physician: CASH POLLARD Date of Service: 12/22/22 Procedure(s): XR finger LT min 2V Accession Number(s): [id number] cc: CASH POLLARD [address] [address] Patient Name: DEBORAH LOCO MRN: [id number] date: 1985 Sex: F Assigned Patient Location: [facility] Current Patient Location: [facility] Accession/Order Number: [id number] Exam Date: 12/22/2022 13:15 Report Date: 12/22/2022 [...] Dictated By: Nii Quarles M.D. Signed By:12/22/22 135 DD/ 1350 TD/TT: Hr Operations Advisor: Cash [facility] Final Result documented in this encounter Visit Diagnoses Not on filedocumented in this encounter Care Teams Pattern Perforating Machine Operator Relationship Specialty Start Date End Date Cash Pollard PA [address] [place] [address] PCP - [facility] SERVICE AND REPAIR SUPERVISOR 07/01/22 04/01/24 Penelope Garcia NP [address] [place] [address] [place] [address] PCP - General Family Medicine 10/03/23 Ce Reyes MD [address] [place] [address] 110 [place] [address] PCP - [facility] SERVICE AND REPAIR SUPERVISOR 04/02/24 documented as of this encounter
--- OUTSIDE RECORDS SUMMARY | 2024-10-30 14:57 | XMS_ITS | Encounter Summary ---
Author Organization [facility] Address [address] [place] [address] Care Team Providers Care Fish Processing Supervisor Name Role Phone Ekta Pollard Unavailable [phone] Penelope Garcia NP Primary Care Provider Ce Reyes MD Unavailable Encounter Details Date Type Department Care Team (Late Contact Info) Description 10/24/2022 Abstract [facility] [address] [facility] 110 [place] [address] Ekta Pollard PA [address] [facility] 110 [place] [address] Social History Tobacco Use Types Packs/Day Years [...] Office Visit [facility] [address] [facility] [address] [facility] 350 [place] [address] Saige Hernandez MD [address] [facility] 350 [place] [address] documented as of this encounter Visit Diagnoses Not on filedocumented in this encounter Care Teams Fish Processing Supervisor Relationship Specialty Start Date End Date Ekta Pollard PA [address] [place] [address] PCP - [facility] RECORD CHANGER 07/01/22 04/01/24 Penelope Garcia NP [address] [facility] [place] [address] PCP - General Family Medicine 10/03/23 Ce Reyes MD [address] [place] [address] PCP - [facility] RECORD CHANGER 04/02/24 documented as of this encounter
--- OUTSIDE RECORDS SUMMARY | 2024-10-30 14:57 | XMS_ITS | Encounter Summary ---
Author Organization [facility] Address [address] [place] [address] Care Team Providers Care Energy Control Officer Name Role Phone Ekta Pollard Unavailable [phone] Penelope Garcia NP Primary Care Provider Ce Reyes MD Unavailable Encounter Details Date Type Department Care Team (Late Contact Info) Description 04/19/2023 Abstract [facility]ah Pagan [facility] 112 [facility] 110 [place] [address] Ce Reyes MD 112 [facility] 110 [place], [place] [address] Social History Tobacco Use Types Packs/Day Years [...] Office Visit [facility] [address] [facility] [address] [facility] 350 [place] [address] Saige Hernandez MD [address] [facility] 350 [place], [place] [address] documented as of this encounter Visit Diagnoses Not on filedocumented in this encounter Care Teams Energy Control Officer Relationship Specialty Start Date End Date Ekta Pollard PA [address] [place] [address] PCP - [facility] FIREBREAK CUTTER 07/01/22 04/01/24 Penelope Garcia NP [facility] [place] [address] PCP - General Family Medicine 10/03/23 Ce Reyes MD [address] [place] [address] PCP - [facility] 04/02/24 documented as of this encounter
--- OUTSIDE RECORDS SUMMARY | 2024-10-30 14:57 | XMS_ITS | Encounter Summary ---
Author Organization [facility] Address [address] [place] [address] Care Team Providers Care Machine Assembler For Puller Over Name Role Phone Ekta Pollard Unavailable [phone] Penelope Garcia NP Primary Care Provider Ce Reyes MD Unavailable Encounter Details Date Type Department Care Team (Late Contact Info) Description 12/20/2022 Abstract [facility]Noah Pagan [facility] 112 [facility] 110 [place] [address] Ce Reyes MD 112 [facility] 110 [place], [place] [address] Social History Tobacco Use Types Packs/Day Years [...] Office Visit [facility] [address] [facility] [address] [facility] 350 [place] [address] Saige Hernandez MD [address] [facility] 350 [place], [place] [address] documented as of this encounter Visit Diagnoses Not on filedocumented in this encounter Care Teams Machine Assembler For Puller Over Relationship Specialty Start Date End Date Ekta Pollard PA [address] [place] [address] PCP - [facility] OYSTER CULTIVATOR 07/01/22 04/01/24 Peneolpe Garcia NP [facility]5 [facility] [place] [address] PCP - General Family Medicine 10/03/23 Ce Reyes MD [address] [place] [address] PCP - [facility] 04/02/24 documented as of this encounter
--- OUTSIDE RECORDS SUMMARY | 2024-10-30 14:58 | XMS_ITS | Patient Health Record ---
Author Organization [facility] Address [address] [place] [address] Care Team Providers Care Surgical Asst Name Role Phone Silvia Slater Primary Care Provider [phone] Allergies Allergen (clinical drug ingredient) Drug/Non Drug [...] Insured Coverage Start Date Coverage End Date [facility] Medicaid [address] [place] [address] [id number] DEBORAH ESPINOZA Self - patient is the insured 3 W[facility] [address] [place] [address] [phone] [id number] BREE ESPINOZAA Self - patient is the insured [facility] [address] [place] [address] [id number] BREE ESPINOZAA Self - patient is the insured 3 Dental Wrap [facility] [address] [place] [address] [id number] DEBORAH ESPINOZA Self - patient is the insured 3
--- NOTE | 2024-10-30 15:30 | P.CN_ITS ---
Consult Note: HPI Data of Consult Patient: known to practice within the last 3 years Requesting Physician: Anna Stroud NP Primary Care Provider: KARIN MALONE Family Provider: CASH DANIEL Consult Narrative Reason for consult: low back pain Narrative: Yanci gray 39 year old female presents for evaluation of acute on chronic low back pain. since last visit did not take MDP due to hx of esophagitis while on prednisone, has been utilizing baclofen 10mg once daily prn HS due to drowsiness. pain 3/10 aching with spasms and stabbing pain at times. denies numbness, tingling, weakness to BLE. denies sciatica. cc:: CC: Anna Stroud NP Review of Systems ROS Musculoskeletal Reports: back pain and neck pain PFSH PFSH Medical History Osteoarthritis ?M19.90 - Unspecified osteoarthritis, unspecified site (ICD-10) Carpal tunnel syndrome ?G56.00 - Carpal tunnel syndrome, unspecified upper limb (ICD-10) Acid reflux ?K21.9 - Gastro-esophageal reflux disease without esophagitis (ICD-10) Asthma ?J45.909 - Unspecified asthma, uncomplicated (ICD-10) Heart murmur ?R01.1 - Cardiac murmur, unspecified (ICD-10) Irregular heartbeat ?I49.9 - Cardiac arrhythmia, unspecified (ICD-10) Surgical History History of carpal tunnel release ?Z98.890 - Other specified postprocedural states (ICD-10) History of hysterectomy ?Z90.710 - Acquired absence of both cervix and uterus (ICD-10) History of tubal ligation ?Z98.51 - Tubal ligation status (ICD-10) History of surgery on arm ?Z98.890 - Other specified postprocedural states (ICD-10) Social History Smoking status: Former smoker Little interest or pleasure in doing things: not at all Feeling down, depressed, or hopeless: not at all Meds Home Medications and Allergies Home Medications ?Medication ?Instructions ?Recorded ?Confirmed ?Type albuterol sulfate 90 mcg/actuation 2 puff inhalation Q 6H PRN wheezing 11/15/22 09/08/24 History aerosol inhaler ciclopirox 0.77 % topical cream 1 applic topical Q12H 11/15/22 09/08/24 History diclofenac sodium 1 % topical gel 2 g topical QID 10/3109/08/24 History ciclopirox 1 % shampoo 5 ml topical QWEEK 04/16/23 09/08/24 History epinephrine 0.3 mg/0.3 mL 0.3 mg (0.3 mL) IM ONCE PRN 10/01/23 09/08/24 Rx injection, auto-injector allergic reaction #2 ea famotidine 20 mg tablet (Pepcid) 20 mg PO BID #10 tabs 10/01/23 09/08/24 Rx aripiprazole 2 mg tablet 2 mg PO DAILY 02/11/2409/08 History ibuprofen 800 mg tablet mg 09/08/24 History Allergies Allergy/AdvReac Type Severity Reaction Status Date / Time Penicillins Allergy Severe Rash Verified 09/08/24 08:20 tramadol Allergy Severe Swelling Verified 09/08/24 08:20 of Lip/Tongue/Throat Pertussis Vaccines Allergy Mild Unknown Verified 09/08/24 08:20 bees AdvReac Mild sob Uncoded 09/08/24 08:20 Exam Constitutional Documenting provider has reviewed patient's vital signs: yes Common normals: no apparent distress, oriented x3, healthy appearing, alert and well nourished General appearance: cooperative [facility] Common normals: normocephalic, hearing grossly normal bilaterally and moist oral mucous membranes Head and scalp: normocephalic Eye Common normals: PERRL Pupil: PERRL Neck & C-Spine Common normals: full ROM General: normal visual inspection Chest Common normals: inspection of chest normal Respiratory Common normals: normal respiratory effort, no retractions and no use of accessory muscles Back & Pelvis Lumbar spine/lower back: pain with ROM, lumbar spinal tenderness, paraspinal muscle tenderness and straight leg raise negative bilaterally; no paraspinal muscle spasm Other: sensation intact BLE strength 5/5 in BLE Neuro Common normals: oriented x3 Sensorium/orientation: alert Psych Common normals: mental status grossly normal, thought process normal, cooperative, affect normal, speech normal and activity/motor behavior normal Speech: normal speech Thought process: normal thought process Results Additional Findings Additional findings: If on a controlled substance or opioids, I have checked an [place]AR[place] report on this patient and there are no aberrancies noted in the prescribing history.??If on a controlled substance or opioid a drug screen was completed and reviewed within the last year, and if there has not been a drug screen completed we ordered one today to monitor higher risk, state monitored pain medication use. As part of providing excellent, safe, comprehensive care, the following was completed at our patient's visit: 1. A medication reconciliation and review to ensure accurate knowledge of current/active medications, including asking our patients to inform us about any [id number] medications or herbal remedies/nutritional supplements/alternative remedies. 2. A review to specifically ensure our patients have had annual screening for screening for depression, screening for tobacco use, and screening for unhealthy alcohol use. For concerning screenings had a discussion with the patient, provided patient education, and recommended follow-up with primary care provider when appropriate. If patient noted with a risk of falling, they received education on strength, gait, and balance training to prevent future risk of falling. Portions of this note may have been carried over from the previous visit and updated as appropriate. Please note this office utilizes paper charting in addition to the electronic medical record. A list of current medications, vitals, and PMH is available there as the clinical staff outside of myself do not have access to [employer] charting during the clinic day operations. As part of providing quality comprehensive care the current medications, vitals, and PMH were reviewed in the paper chart. Assessment and Plan Assessment and Plan (1) Back strain: Assessment and Plan: improved from prior (2) Lumbar spondylosis: (3) Myofascial pain: Plan decrease baclofen 5-10mg tid prn pain/spasms continue HEP as tolerated continue PT for neck pain f/u 6 weeks
== END 2024-10-30 14:55 | disposition home or self-care (01) ==
LOC: PM 14:54
PROVIDERS: Family Provider Physician Assistant; PCP Nurse Practitioner Family; Visit Provider Nurse Practitioner
DX: S39.012A Strain of muscle, fascia and tendon of lower back, initial encounter (principal); M47.816 Spondylosis without myelopathy or radiculopathy, lumbar region; M79.18 Myalgia, other site
CPT/HCPCS: G0463

== ENCOUNTER 2024-12-17 14:40 | Outpatient (OUT) | payer OTHER, SELFPAY ==
--- OUTSIDE RECORDS SUMMARY | 2023-04-24 10:30 | XMS_ITS | Continuity of Care Document ---
Author Organization [facility] Address [address] [place] [address] Phone Care Team Providers Care Embroidery Worker Name Role Phone Ayo Jackson DDS Unavailable [...] Visit Dental Nutrit [facility] [place] Dis Dec Extract; Erupted Th/exposted Rt 023 Limited Oral Eval Oral Hygiene Instruction Nutrit [facility] [place] Dis July Extract; Erupted Th/exposted Rt Extract; Erupted Th/exposted Rt 022 Intraoral-periapical 1st Film 1 Voavxopfl-ijfolnkkyg-dhed Additional Jan Limited Oral Eval Oral Hygiene Instruction Intraoral-periapical 1st Film 1 Yxcccnhal-[id number] Additional May Scnjndpox-wkwrtgpquk-fvvb Additional May Limited Oral Eval Limited Oral Eval Oral Hygiene Instruction Intraoral-periapical 1st Film 0 PPE Prophylaxis Adult Oral Hygiene Instruction Prophylaxis Adult Oral Hygiene Instruction Intraoral-complete Series (bw) 19 Comp Oral Eval New/estab Patient 2018 Advance Directives Directive Yes / No Effective Date File Name No Information Encounters Encounter Description Practice Location Reason(s) For Visit Diagnoses Date Provider Providers Copied on Encounter [facility], [address] [place] [address], [id number], [place] tel:[phone] Dental Clinic pe (chief complaint) Encounter for screening for dental disordersBody mass index [BMI] 27.0-27.9, adult 4 [facility] [address] [place] [address], [id number], [place]. tel:[phone] [facility], [address] [place] [address], [id number], [place] tel:[phone] Dental Clinic pov (chief complaint) Encounter for screening for dental disorders 3 Enrike George. [address] [place] [address], [id number], [place]. tel:[phone] [facility], [address] [place] [address], [id number], [place] tel:[phone] Dental Clinic cons (chief complaint) Encounter for screening for dental disorders 3 [facility] Victor Manuel. [address] [place], [place], [id number], [place]. tel:[phone] [facility], [address] [place], [place], [id number], [place] tel:[phone] Dental Clinic PE (chief complaint) Encounter for screening for dental disorders 3 Enrike George. [address] [place], [place], [id number], [place]. tel:[phone] [facility], [address] [place], [place], [id number], [place] tel:[phone] Dental Clinic EXT (chief complaint) Encounter for screening for dental disorders 2 [facility] Victor Manuel. [address] [place], [place], [id number], [place]. tel:[phone] [facility], [address] [place], [place], [id number], [place] tel:[phone] Dental Clinic D EMg (chief complaint) Encounter for screening for dental disorders 1 Porter [facility] Solo. [address] [place], [address], [place]. tel:[phone] [facility], [address] [place] [address], [id number], [place] tel:[phone] Dental Clinic dental EMERGENCY (chief complaint)d ental EMERGENCY (chief complaint) Encounter for screening for dental disorder 1 Sabas Saravia. [address] [place], [place], [id number], [place]. tel:[phone] [facility], [address] [place], [place], [id number], [place] tel:[phone] Dental Clinic ER (chief complaint) Encounter for screening for dental disorder 0 Osman [facility] Tejas. [address] [place], [place], [id number], [place]. tel:[phone] [facility], [address] [place], [place], [id number], [place] tel:[phone] Dental Clinic Encounter [facility] disorders [facility] [address] [place], [place], [id number], [place]. tel:[phone] [facility], [address] [place] [address], [id number], tel:[phone] Dental Clinic Encounter for screening for dental disorders 9 [facility]. [address] [place], [place], [id number], [place]. tel:[phone] [facility], [address] [place] [address], [id number], tel:[phone] Dental Clinic Dental New (chief complaint) Encounter for screening for dental disorders 9 [facility]. [address] [place] [address], [id number], [place]. tel:[phone] Family History Family Member Type Diagnosis Age At Onset No Information Payers Payer name Insurance type Covered green party ID Authorkaya solange(s) D [employer] [facility] [id number] D Medicaid [facility] [id number] Social History Type Description Quantity Date Captured [...]
--- OUTSIDE RECORDS SUMMARY | 2023-08-20 05:30 | XMS_ITS ---
Author Organization [facility] Address [address] [place] [address] Care Team Providers Care Green Meat Grader Name Role Phone Ozzy Morrison Unavailable [phone] boydYisel Holder Unavailable REASON FOR VISIT Right long, ring, and small finger trigger finger, Follow-up right long, ring, and small finger trigger fingers Medications Medication SIG (Take, Route, Frequency, Duration) [...] (Standard) Question Answer Notes Tobacco use: Nonsmoker Encounters Encounter Location Date Provider Diagnosis [address] [address] 08/20/2023 [facility] Trigger finger, right middle finger M65.331 ; Trigger finger, right ring finger M65.341 and Trigger finger, right little finger M65.351 Assessments Encounter Date Diagnosis (ICD Code) Assessment Notes Treatment Notes Treatment Clinical Notes Section Notes 08/20/2023 Trigger finger, right middle finger (ICD-10 - M65.331) Trigger finger of right long, ring, and small fingers 08/20/2023 Trigger finger, right ring finger (ICD-10 - M65.341) Trigger finger of right long, ring, and small fingers 08/20/2023 Trigger finger, right little finger (ICD-10 - M65.351) Trigger finger of right long, ring, and small fingers 08/20/2023 Other Patient is doing well and states that she is done with physical therapy. We discussed that she can come back on an as-needed basis for a steroid injection should her pain return. Patient is in agreement with the plan. Trigger finger of right long, ring, and small fingers Plan Of Treatment Treatment Notes Assessment Notes Other Patient is doing wel l and states that she is done with physical therapy. We discussed that she can come back on an as-needed basis for a steroid injection should her pain return. Patient is in agreement with the plan. Next Appt Details Follow Up: prn, Reason: Progress Notes * DEBORAH ESPINOZA ADOB:[birth year] (39 yo F)Acc No.[id number]:08/20/2023 Patient: DEBORAH MICHEL A Provider: DEBORAH Rivas :1985 A ge:38 Y S ex:Female Date:08/20/2023 Address:[address] [place], [place] [id number] Subjective: * Chief Complaints: * 1 . Right long, ring, and small finger trigger finger. 2. Follow-up right long, ring, and small finger trigger fingers. * HPI: G eneral Follow Up Information: Patient presents today for follow-up of her trigger fingers in her right long, ring, and small fingers. She has been doing physical therapy and states that she has completed it. She has also been taking NSAIDs for the pain. Patient reports her pain as a 2/10 today but states that she is doing well and has the range of motion back in all of her fingers. * Medical History: * Social History: E xercise regularly D [...] obacco use: N onsmoker. * Medications: T aking EpiPen 2-Dominick , Taking albuterol , Medication List reviewed and reconciled with the patient Objective: * Vitals: * Examination: G eneral examination: O n exam patient is in no obvious distress, she is nontender to her A1 pulleys of her right long, ring, and small fingers. She has full flexion extension of her fingers of her right hand. There is no active triggering noted. . X -ray Imaging Studies: N one taken today. Assessment: * Assessment: 1. T manager desktop finger, right middle finger - M65.331 (Primary) 2 . T manager desktop finger, right ring finger - M65.341 3 . T manager desktop finger, right little finger - M65.351 Trigger finger of right long , ring, and small fingers. Plan: * Treatment: * Follow Up: p rn Forms: * Images: * Electronic signature of Ryan Vargas PA-C on 12/17/2024 at 02:50 PM EDT Sign off status: Pending * Provider: DEBORAH Rivas Date: 0 08/20/2023 Generated for Saira tian/Unruly/Kane on: 0 12/17/2024 02:50 PM EDT History and Physical Notes * HPI (History of Present Illness) Category Sub-Category Detail Notes Category Not es General Follow Up Information Patient presents tod ay for follow-up of her trigger fingers in her right long, ring, and small fingers. She has been doing physical therapy and states that she has completed it. She has also been taking NSAIDs for the pain. Patient reports her pain as a 2/10 today but states that she is doing well and has the range of motion back in all of her fingers. Examination Category Sub-Category Detail Notes Category Not es General examination On exam patient is in no obvious distress, she is nontender to her A1 pulleys of her right long, ring, and small fingers. She has full flexion extension of her fingers of her right hand. There is no active triggering noted. X-ray Imaging Studies None t janet today.
--- OUTSIDE RECORDS SUMMARY | 2024-12-17 14:50 | XMS_ITS | Encounter Summary ---
Author Organization [facility] Address [address] [place] [address] Care Team Providers Care Conveyor Tender Concrete Mixing Plant Name Role Phone Ekta Pollard Unavailable [phone] Penelope Garcia NP Primary Care Provider Ce Reyes MD Unavailable Encounter Details Date Type Department Care Team ([facility] Contact Info) Description 11/11/2022 Abstract [facility] [address] [facility] [address] [place] [address] Saige Hernandez MD [address] [facility] [address] [place] [address] Social History Tobacco Use Types [...] Upcoming Encounters Date Type Department Care Team ([facility] Contact Info) Description 10/13/2025 1:20 PM EDT Office Visit [facility] [address] [place] [address] Saige Hernandez MD [address] [place] [address] documented as of this encounter Visit Diagnoses Not on filedocumented in this encounter Care Teams Conveyor Tender Concrete Mixing Plant Relationship Specialty Start Date End Date Ekta Pollard PA [address] [place] [address] PCP - [facility] 07/01/22 04/01/24 Penelope Garcia NP [address] [facility] [place] [address] PCP - General Family Medicine 10/03/23 Ce Reyes MD [address] [place] [address] PCP - [facility] 04/02/24 documented as of this encounter
--- OUTSIDE RECORDS SUMMARY | 2024-12-17 14:50 | XMS_ITS | Encounter Summary ---
Author Organization [facility] Address [address] [place] [address] Care Team Providers Care Fine Sander Name Role Phone Cash Pollard Unavailable [phone] Penelope Garcia NP Primary Care Provider [...] Office Visit [facility] [address] [place] [address] Saige Hernandez MD [address] [place] [address] documented as of this encounter Procedures Procedure Name Priority Date/Time Associated Diagnosis Comments XR HAND 3+ VIEWS RIGHT 07/03/2023 6:50 AM EDT documented in this encounter Results * XR hand 3+ views right (07/03/2023 6:50 AM EDT) Anatomical Region Laterality Modality Upper Extremities, Hand Right [facility] 07/03/2023 6:50 AM EDT Narrative 07/03/2023 6:52 AM EDT [address] [address] XRay Report Signed Patient: DEBORAH LOCO MR#: [id number] : 1985 Acct:[id number] Age/Sex: 38 / F ADM Date: 07/02/23 Loc: EC Attending Dr: Lizandro Iniguez M.D. Ordering Physician: Lizandro Iniguez M.D. Date of Service: 07/02/23 Procedure(s): XR hand RT min 3V Accession Number(s): [id number] cc: Lizandro Iniguez M.D.; CASH POLLARD [place] [address] Patient Name: DEBORAH LOCO MRN: [id number] date: 1985 Sex: F Assigned Patient Location: Current Patient Location: Accession/Order Number: [id number] Exam Date: 07/02/2023 09:16 Report Date: 07/03/2023 [...] Signed By: 07/03/23 0652 DD/ 0650 TD/TT: Aboriginal Education Teacher: Procedure Note Radiology, Radiologist, - 07/05/2023 [place] [address] XRay Report Signed Patient: DEBORAH LOCO AMR#: [id number] : 1985Acct:[id number] Age/Sex: 38 / FADM Date: 07/02/23 Loc: EC Attending Dr: Lizandro Iniguez M.D. Ordering Physician: Lizandro Iniguez M.D. Date of Service: 07/02/23 Procedure(s): XR hand RT min 3V Accession Number(s): [id number] cc: Lizandro Iniguez M.D.; CASH POLLARD [place] [address] Patient Name: DEBORAH LOCO MRN: [facility]:[id number] date: 1985 Sex: F Assigned Patient Location: Current Patient Location: Accession/Order Number: [id number] Exam Date: 07/02/2023 09:16 Report Date: 07/03/2023 [...] M.D. Signed By:07/03/23 0652 DD/ 0650 TD/TT: Aboriginal Education Teacher: us Generic External Data Provider IMG XR PROCEDURES Final Result documented in this encounter Visit Diagnoses Not on filedocumented in this encounter Care Teams Fine Sander Relationship Specialty Start Date End Date Cash Pollard PA [address] [facility] 110 [place], [place] [phone] PCP - [facility] 07/01/22 04/01/24 Penelope Garcia NP [address] [place] [address] [place] [address] PCP - General Family Medicine 10/03/23 Ce Reyes MD [address] [facility] 110 [place], [place] [phone] PCP - [facility] 04/02/24 documented as of this encounter
--- OUTSIDE RECORDS SUMMARY | 2024-12-17 14:50 | XMS_ITS | Encounter Summary ---
Author Organization [facility] Address [address] [place] [address] Care Team Providers Care Poultry Farmer Meat Name Role Phone Ekta Pollard Unavailable [phone] Penelope Garcia NP Primary Care Provider Ce Reyes MD Unavailable Encounter Details Date Type Department Care Team (Late Contact Info) Description 04/18/2023 [facility] [address] [place] [address] A, Unknown Practice [address] [place], [place] [phone] Social History Tobacco Use Types Packs/Day Years [...] Office Visit [facility] [address] [address] [place] [address] Saige Hernandez MD [address] [facility] [address] [place] [address] documented as of this encounter [...] on filedocumented in this encounter Care Teams Poultry Farmer Meat Relationship Specialty Start Date End Date Ekta Pollard PA [address] [facility] 110 [place] [address] PCP - [facility] 07/01/22 04/01/24 Penelope Garcia NP [address] [place] [address] [place] [address] PCP - General Family Medicine 10/03/23 Ce Reyes MD [address] [place] [address] 110 [place] [address] PCP - [facility] 04/02/24 documented as of this encounter
--- OUTSIDE RECORDS SUMMARY | 2024-12-17 14:50 | XMS_ITS | Encounter Summary ---
Author Organization [facility] Address [address] [place] [address] Care Team Providers Care Potash Flaker Name Role Phone Cash Pollard Unavailable [phone] Penelope Garcia NP Primary Care Provider Ce Reyes MD Unavailable Encounter Details Date Type Department Care Team (Late st Contact Info) Description 12/22/2022 Clinisync Result Encounter NOMS External Department Unsolicited Cash Pollard PA 112 [facility] 110 [place] [address] Social History Tobacco Use Types Packs/Day Years [...] Office Visit [facility] [address] [facility] [address] [place] [address] Saige Hernandez MD [address] [place] [address] documented as of this encounter Procedures Procedure Name Priority Date/Time Associated Diagnosis Comments XR FINGER LT MIN 2V 12/22/2022 1 :50 PM EDT documented in this encounter Results * XR FINGER LT MIN 2V (12/22/2022 1:50 PM EDT) Anatomical Region Laterality Modality Other 12/22/2022 1:50 PM EDT Narrative 12/22/2022 1:50 [place] [address] XRay Report Signed Patient: DEBORAH LOCO MR#: [id number] : 1985 Acct:[id number] Age/Sex: 37 / F ADM Date: 12/22/22 Loc: [facility] Attending Dr: CASH POLLARD Ordering Physician: CASH POLLARD Date of Service: 12/22/22 Procedure(s): XR finger LT min 2V Accession Number(s): [id number] cc: CASH POLLARD [place] [address] Patient Name: DEBORAH LOCO MRN: [id number] date: 1985 Sex: F Assigned Patient Location: [facility] Current Patient Location: [facility] Accession/Order Number: [id number] Exam Date: 12/22/2022 13:15 Report Date: 12/22/2022 [...] By: Nii Quarles M.D. Signed By: 12/22/22 1355 DD/ 1350 TD/TT: Distribution Warehouse Manager: Procedure Note Radiology, Radiologist, MD - 12/22/[address] [address] XRay Report Signed Patient: DEBORAH LOCO AMR#: [id number] : 1985Acct:[id number] Age/Sex: 37 / FADM Date: 12/22/22 Loc: RAD Attending Dr: CASH POLLARD Ordering Physician: CASH POLLARD Date of Service: 12/22/22 Procedure(s): XR finger LT min 2V Accession Number(s): [id number] cc: CASH POLLARD [address] [address] Patient Name: DEBORAH LOCO MRN: [id number] date: 1985 Sex: F Assigned Patient Location: [facility] Current Patient Location: [facility] Accession/Order Number: [id number] Exam Date: 12/22/2022 13:15 Report Date: 12/22/2022 [...] Dictated By: Nii Quarles M.D. Signed By:12/22/22 1354 DD/ 1350 TD/TT: Distribution Warehouse Manager: Cash [facility] Final Result documented in this encounter Visit Diagnoses Not on filedocumented in this encounter Care Teams Potash Flaker Relationship Specialty Start Date End Date Cash Pollard PA [address] [place] [address] PCP - [facility] FINANCIAL COUNSELOR 07/01/22 04/01/24 Penelope Garcia NP [address] [place] [address] [place] [address] PCP - General Family Medicine 10/03/23 Ce Reyes MD [address] [place] [address] 110 [place] [address] PCP - [facility] FINANCIAL COUNSELOR 04/02/24 documented as of this encounter
--- OUTSIDE RECORDS SUMMARY | 2024-12-17 14:50 | XMS_ITS | Encounter Summary ---
Author Organization [facility] Address [address] [place] [address] Care Team Providers Care Electroplating Sales Representative Name Role Phone Ekta Pollard Unavailable [phone] Penelope Garcia NP Primary Care Provider Ce Reyes MD Unavailable Encounter Details Date Type Department Care Team (Late Contact Info) Description 10/05/2022 Abstract [facility] [address] [facility] 110 [place] [address] Ekta Pollard PA [address] [facility] 110 [place] [address] Social History Tobacco Use Types Packs/Day Years [...] Visit [facility] [address] [facility] 350 [place] [address] Saige Hernandez MD [address] [facility] 350 [place] [address] documented as of this encounter Visit Diagnoses Not on filedocumented in this encounter Care Teams Electroplating Sales Representative Relationship Specialty Start Date End Date Ekta Pollard PA [address] [place] [address] PCP - [facility] SALES TEAM LEADER 07/01/22 04/01/24 Penelope Garcia NP [address] [facility] [place] [address] PCP - General Family Medicine 10/03/23 Ce Reyes MD [address] [place] [address] PCP - [facility] SALES TEAM LEADER 04/02/24 documented as of this encounter
--- OUTSIDE RECORDS SUMMARY | 2024-12-17 14:50 | XMS_ITS | Encounter Summary ---
Author Organization [facility] Address [address] [place] [address] Care Team Providers Care Fence Setter Name Role Phone Ekta Pollard Unavailable [phone] Penelope Garcia NP Primary Care Provider Ce Reyes MD Unavailable Encounter Details Date Type Department Care Team (Late Contact Info) Description 12/20/2022 Abstract [facility] 112 [facility] 110 [place] [address] Ce Reyes MD 112 [facility] 110 [place], [place] [address] Social History Tobacco Use Types Packs/Day Years [...] [address] [facility] [address] [facility] 350 [place] [address] Saige Hernandez MD [address] [facility] 350 [place], [place] [address] documented as of this encounter Visit Diagnoses Not on filedocumented in this encounter Care Teams Fence Setter Relationship Specialty Start Date End Date Ekta Pollard PA [address] [place] [address] PCP - [facility] HIGH SCHOOL ASSISTANT PRINCIPAL 07/01/22 04/01/24 Penelope Garcia NP [facility]5 [facility] [place] [address] PCP - General Family Medicine 10/03/23 Ce Reyes MD [address] [place] [address] PCP - [facility] 04/02/24 documented as of this encounter
--- OUTSIDE RECORDS SUMMARY | 2024-12-17 14:50 | XMS_ITS | Encounter Summary ---
Author Organization [facility] Address [address] [place] [address] Care Team Providers Care Information Services Vice President Name Role Phone Ekta Pollard Unavailable [phone] Penelope Garcia NP Primary Care Provider Ce Reyes MD Unavailable Encounter Details Date Type Department Care Team (Late Contact Info) Description 10/24/2022 Abstract [facility] [address] [facility] 110 [place] [address] Ekta Pollard PA [address] [facility] 110 [place] [address] Social History Tobacco Use Types Packs/Day Years [...] Office Visit [facility] [address] [facility] 350 [place] [address] Saige Hernandez MD [address] [facility] [address] [facility] 350 [place] [address] documented as of this encounter Visit Diagnoses Not on filedocumented in this encounter Care Teams Information Services Vice President Relationship Specialty Start Date End Date Ekta Pollard PA [address] [place] [address] PCP - [facility] PATCHER BOWLING BALL 07/01/22 04/01/24 Penelope Garcia NP [address] [facility] [place] [address] PCP - General Family Medicine 10/03/23 Ce Reyes MD [address] [place] [address] PCP - [facility] PATCHER BOWLING BALL 04/02/24 documented as of this encounter
--- OUTSIDE RECORDS SUMMARY | 2024-12-17 14:50 | XMS_ITS | Encounter Summary ---
Author Organization [facility] Address [address] [place] [address] Care Team Providers Care Director Of Loss Prevention Name Role Phone Ekta Pollard Unavailable [phone] Penelope Garcia NP Primary Care Provider Ce Reyes MD Unavailable Encounter Details Date Type Department Care Team (Late Contact Info) Description 05/30/2023 Abstract [facility] Pagan [facility] 112 [facility] 110 [place] [address] Ce Reyes MD [address] [facility] 110 [place], [place] [address] Social History Tobacco Use Types Packs/Day Years [...] Office Visit [facility] [address] [facility] [address] [facility] 350 [place] [address] Saige Hernandez MD [address] [facility] 350 [place], [place] [address] documented as of this encounter Visit Diagnoses Not on filedocumented in this encounter Care Teams Director Of Loss Prevention Relationship Specialty Start Date End Date Ekta Pollard PA [address] [place] [address] PCP - [facility] BUSINESS DEVELOPMENT SALES EXECUTIVE 07/01/22 04/01/24 Penelope Garcia NP [facility] [place] [address] PCP - General Family Medicine 10/03/23 Ce Reyes MD [address] [place] [address] PCP - [facility] 04/02/24 documented as of this encounter
--- OUTSIDE RECORDS SUMMARY | 2024-12-17 14:50 | XMS_ITS | Encounter Summary ---
Author Organization [facility] Address [address] [place] [address] Care Team Providers Care Preload Supervisor Name Role Phone Ekta Pollard Unavailable [phone] Penelope Garcia NP Primary Care Provider Ce Reyes MD Unavailable Encounter Details Date Type Department Care Team (Late Contact Info) Description 07/03/2023 [facility] [address] [facility] 110 [place] [address] Unallocated, Noms MD Zhao [address] [place], [place] [address] Social History Tobacco Use Types Packs/Day Years [...] Office Visit [facility] [address] [facility] [address] [place] [address] Saige Hernandez MD [address] [facility] [address] [place] [address] documented as of this encounter [...] on filedocumented in this encounter Care Teams Preload Supervisor Relationship Specialty Start Date End Date Ekta Pollard PA [address] [facility] 110 [place], [place] [address] PCP - [facility] 07/01/22 04/01/24 Penelope Garcia NP [address] [place] [address] [place] [address] PCP - General Family Medicine 10/03/23 Ce Reyes MD [address] [facility] 110 [place], [place] [address] PCP - [facility] 04/02/24 documented as of this encounter
--- OUTSIDE RECORDS SUMMARY | 2024-12-17 14:50 | XMS_ITS | Encounter Summary ---
Author Organization [facility] Address [address] [place] [address] Care Team Providers Care General Technician Name Role Phone Ekta Pollard Unavailable [phone] Penelope Garcia NP Primary Care Provider Ce Reyes MD Unavailable Encounter Details Date Type Department Care Team (Late Contact Info) Description 12/11/2022 Orders Only [facility] [address] [place] [address] A, Unknown Practice [address] [place], [place] [address] Social History Tobacco Use Types Packs/Day Years [...] Office Visit [facility] [address] [facility] [address] [place] [address] Saige Hernandez MD [address] [facility] [facility] [address] [place] [address] documented as of this encounter [...] on filedocumented in this encounter Care Teams General Technician Relationship Specialty Start Date End Date Ekta Pollard PA 112 [facility] 110 [place] [address] PCP - [facility] 07/01/22 04/01/24 Penelope Garcia NP [address] [place] [address] PCP - General Family Medicine 10/03/23 Ce Reyes MD [address] [place] [address] PCP - [facility] JACQUARD LOOM CARD CHANGER 04/02/24 documented as of this encounter
--- OUTSIDE RECORDS SUMMARY | 2024-12-17 14:50 | XMS_ITS | Encounter Summary ---
Author Organization [facility] Address [address] [place] [address] Care Team Providers Care Test Lab Technician Name Role Phone Ekta Pollard Unavailable [phone] Penelope Garcia NP Primary Care Provider Ce Reyes MD Unavailable Encounter Details Date Type Department Care Team (Late Contact Info) Description 04/19/2023 Abstract [facility] 112 [facility] 110 [place] [phone] Ce Reyes MD 112 [facility] 110 [place] [address] Social History Tobacco Use Types Packs/Day Years [...] Office Visit [facility] [address] [facility] [address] [facility] 350 [place] [address] Saige Hernandez MD [address] [facility] 350 [place], [place] [phone] documented as of this encounter Visit Diagnoses Not on filedocumented in this encounter Care Teams Test Lab Technician Relationship Specialty Start Date End Date Ekta Pollard PA [address] [place] [address] PCP - [facility] FROZEN YOGURT MAKER 07/01/22 04/01/24 Penelope Garcia NP [facility] [facility] [place] [address] PCP - General Family Medicine 10/03/23 Ce Reyes MD [address] [place] [address] PCP - [facility] 04/02/24 documented as of this encounter
--- OUTSIDE RECORDS SUMMARY | 2024-12-17 14:50 | XMS_ITS | Encounter Summary ---
Author Organization [facility] Address [address] [place] [address] Care Team Providers Care Sawmill Equipment Operator Name Role Phone Ekta Pollard Unavailable [phone] Penelope Garcia NP Primary Care Provider Ce Reyes MD Unavailable Encounter Details Date Type Department Care Team (Late Contact Info) Description 11/21/2022 Abstract [facility] 112 [facility] 110 [place] [phone] Ce Reyes MD [address] [facility] 110 [place] [address] Social History Tobacco Use Types Packs/Day Years [...] Office Visit [facility] [address] [facility] 350 [place] [address] Saige Hernandez MD [address] [facility] 350 [place] [address] documented as of this encounter Visit Diagnoses Not on filedocumented in this encounter Care Teams Sawmill Equipment Operator Relationship Specialty Start Date End Date Ekta Pollard PA [address] [place] [address] PCP - [facility] AIRCRAFT PNEUDRAULICS REPAIRER 07/01/22 04/01/24 Penelope Garcia NP [address] [facility] [place] [address] PCP - General Family Medicine 10/03/23 Ce Reyes MD [address] [place] [address] PCP - [facility] AIRCRAFT PNEUDRAULICS REPAIRER 04/02/24 documented as of this encounter
--- OUTSIDE RECORDS SUMMARY | 2024-12-17 14:50 | XMS_ITS | Encounter Summary ---
Author Organization [facility] Address [address] [place] [address] Care Team Providers Care Technology Education Instructor Name Role Phone Ekta Pollard Unavailable [phone] Penelope Garcia NP Primary Care Provider Ce Reyes MD Unavailable Encounter Details Date Type Department Care Team (Late Contact Info) Description 05/30/2023 Abstract [facility] P[facility] 112 [facility] 110 [place] [phone] Ce Reyes MD [address] [place] [facility] 110 [place], [place] [id number] Social History Tobacco Use Types Packs/Day Years [...] Office Visit [facility] [address] [facility] [address] [facility] 350 [place] [address] Saige Hernandez MD [address] [facility] 350 [place], [place] [phone] documented as of this encounter Visit Diagnoses Not on filedocumented in this encounter Care Teams Technology Education Instructor Relationship Specialty Start Date End Date Ekta Pollard PA [address] [place] [address] PCP - [facility] AUTOMATIC GLOVE TURNER AND FORMER 07/01/22 04/01/24 Penelope Garcia NP [facility] [place] [address] PCP - General Family Medicine 10/03/23 Ce Reyes MD [address] [place] [address] PCP - [facility] 04/02/24 documented as of this encounter
--- OUTSIDE RECORDS SUMMARY | 2024-12-17 14:50 | XMS_ITS | Clinical Summary ---
Author Organization [facility] Address [address] [facility] [place] [address] Care Team Providers Care Corporate General Manager Name Role Phone Penelope Garcia NP Primary [...] before bedtime. 50 g 2 4 Active ARIPiprazole (Abilify) 2 MG tabletIndicatio ns:Current severe episode of major depressive disorder without psychotic features without prior episode (HCC) TAKE 1 TABLET BY MOUTH EVERY MORNING 30 tablet 4 Active Ciclopirox 1 % shampooIndicati ons:Other seborrheic dermatitis Use as shampoo 2-3x/week, allow to sit on scalp for 5 minutes before rinsing off 120 mL 11 5 Active ciclopirox (Loprox) 0.77 % creamIndication s:Other seborrheic dermatitis Apply (0.7g) to face once daily 30 g 11 5 Active Active Problems Problem Noted Date Diagnosed [...] Description 10/09/2024 1:05 PM EDT Office Visit [facility] [address] [place] [address] Saige Hernandez MD Other seborrheic dermatitis (Primary Dx) 10/09/2024 Bamboo flowsheet [facility] [place] [facility] [address] [place] [phone] Saige Hernandez MD 10/09/2024 Travel from Last [...] Description 10/13/2025 1:20 PM EDT Office Visit [facility] [place] [facility] [address] [place] [address] Saige Hernandez MD [address] [place] [address] Health Maintenance Due Date Last Done Comments Influenza Vaccine (#1) 2024 Insurance [employer] Care Teams Corporate General Manager Relationship Specialty Start Date End Date Penelope Garcia NP [address] [place] [address] PCP - General Family Medicine 10/03/23 Ce Reyes MD [address] [place] [address] 110 [place] [address] PCP - [facility] 04/02/24
--- OUTSIDE RECORDS SUMMARY | 2024-12-17 14:50 | XMS_ITS | Encounter Summary ---
Author Organization [facility] Address [address] [place] [address] Care Team Providers Care Perinatal Tech Name Role Phone Ekta Pollard Unavailable [phone] Penelope Garcia NP Primary Care Provider Ce Reyes MD Unavailable Encounter Details Date Type Department Care Team (Late Contact Info) Description 10/24/2022 Abstract [facility] Family [facility] [address] [facility] 110 [place] [phone] Ekta Pollard PA 112 [place] [facility] 110 [place] [address] Social History Tobacco Use Types Packs/Day Years [...] Office Visit [facility] [address] [email or web address] [facility] 350 [place] [address] Saige Hernandez MD [address] [facility] [address] [facility] 350 [place] [address] documented as of this encounter Visit Diagnoses Not on filedocumented in this encounter Care Teams Perinatal Tech Relationship Specialty Start Date End Date Ekta Pollard PA [address] [place] [address] PCP - [facility] SKIN CARE TECHNICIAN 07/01/22 04/01/24 Penelope Garcia NP [address] [facility] [place] [address] PCP - General Family Medicine 10/03/23 Ce Reyes MD [address] [place] [address] PCP - [facility] SKIN CARE TECHNICIAN 04/02/24 documented as of this encounter
--- OUTSIDE RECORDS SUMMARY | 2024-12-17 14:50 | XMS_ITS | Encounter Summary ---
Author Organization [facility] Address [address] [place] [address] Care Team Providers Care Data Examination Clerk Name Role Phone Ekta Pollard Unavailable [phone] Penelope Garcia NP Primary Care Provider Ce Reyes MD Unavailable Encounter Details Date Type Department Care Team (Late Contact Info) Description 12/25/2022 [facility] [address] [place] [address] A, Unknown Practice [address] [place], [place] [phone] Social History Tobacco Use Types Packs/Day Years [...] Office Visit [facility] [address] [facility] [address] [facility] 350 [place] [address] Saige Hernandez MD [address] [facility] [address] [place] [address] documented as of this encounter [...] on filedocumented in this encounter Care Teams Data Examination Clerk Relationship Specialty Start Date End Date Ekta Pollard PA 112 [facility] 110 [place] [address] PCP - [facility] 07/01/22 04/01/24 Penelope Garcia NP [address] [place] [address] [place] [address] PCP - General Family Medicine 10/03/23 Ce Reyes MD [address] [place] [address] 110 [place] [address] PCP - [facility] 04/02/24 documented as of this encounter
--- OUTSIDE RECORDS SUMMARY | 2024-12-17 14:50 | XMS_ITS | Encounter Summary ---
Author Organization [facility] Address [address] [place] [address] Care Team Providers Care Covered Buckle Assembler Name Role Phone Ekta Pollard Unavailable [phone] Penelope Garcia NP Primary Care Provider Ce Reyes MD Unavailable Encounter Details Date Type Department Care Team (Late Contact Info) Description 05/17/2023 Abstract [facility] 112 [facility] 110 [place] [phone] Ce Reyes MD 112 [facility] 110 [place], [place] [address] Social History Tobacco Use Types Packs/Day Years [...] Office Visit [facility] [address] [facility] [address] [facility] 350 [place] [address] Saige Hernandez MD [address] [facility] 350 [place], [place] [phone] documented as of this encounter Visit Diagnoses Not on filedocumented in this encounter Care Teams Covered Buckle Assembler Relationship Specialty Start Date End Date Ekta Pollard PA [address] [place] [address] PCP - [facility] EQUIPMENT OPERATING ENGINEER 07/01/22 04/01/24 Penelope Garcia NP [facility] [place] [address] PCP - General Family Medicine 10/03/23 Ce Reyes MD [address] [place] [address] PCP - [facility] 04/02/24 documented as of this encounter
--- OUTSIDE RECORDS SUMMARY | 2024-12-17 14:51 | XMS_ITS | Patient Health Record ---
Author Organization [facility] es Address [address] [place] [address] Care Team Providers Care Head Inspector Name Role Phone Silvia Slater Primary Care Provider [phone] Allergies Allergen (clinical drug ingredient) Drug/Non Drug [...] Insured Coverage Start Date Coverage End Date [facility] Medicaid [address] [place] [address] [id number] DEBORAH ESPINOZA Self - patient is the insured 3 [facility] [address] [place] [address] [phone] [id number] BREE ESPINOZAA Self - patient is the insured 3 [facility] [address] [place] [address] [id number] BREE ESPINOZAA Self - patient is the insured 3 [employer] [address] [place] [address] [id number] BREE ESPINOZAA Self - patient is the insured 3
--- OUTSIDE RECORDS SUMMARY | 2024-12-17 14:51 | XMS_ITS | Encounter Summary ---
Author Organization [facility] Address [address] [place] [address] Care Team Providers Care Email Operations Manager Name Role Phone Ekta Pollard Unavailable [phone] Penelope Garcia NP Primary Care Provider Ce Reyes MD Unavailable Encounter Details Date Type Department Care Team (Late Contact Info) Description 10/26/2022 Abstract [facility] 112 [facility] 110 [place] [phone] Ekta Pollard PA [address] [place] [facility] 110 [place] [address] Social History Tobacco Use Types Packs/Day Years [...] [facility] [address] [facility] 350 [place] [address] Saige Hernandez MD [address] [facility] 350 [place] [address] documented as of this encounter Visit Diagnoses Not on filedocumented in this encounter Care Teams Email Operations Manager Relationship Specialty Start Date End Date Ekta Pollard PA [address] [place] [address] PCP - [facility] TUBE COREMAKER 07/01/22 04/01/24 Penelope Garcia NP [address] [facility] [place] [address] PCP - General Family Medicine 10/03/23 Ce Reyes MD [address] [place] [address] PCP - [facility] TUBE COREMAKER 04/02/24 documented as of this encounter
--- OUTSIDE RECORDS SUMMARY | 2024-12-17 14:51 | XMS_ITS | Encounter Summary ---
Author Organization [facility] Address [address] [place] [address] Care Team Providers Care Vault Keeper Name Role Phone Ekta Pollard Unavailable [phone] Penelope Garcia NP Primary Care Provider Ce Reyes MD Unavailable Encounter Details Date Type Department Care Team (Late Contact Info) Description 10/25/2022 Abstract [facility] [address] [facility] 110 [place] [phone] Ekta Pollard PA [address] [facility] 110 [place] [address] Social History Tobacco Use Types Packs/Day Years [...] [facility] [address] [facility] 350 [place] [address] Saige Hernandez MD [address] [facility] 350 [place] [address] documented as of this encounter Visit Diagnoses Not on filedocumented in this encounter Care Teams Vault Keeper Relationship Specialty Start Date End Date Ekta Pollard PA [address] [place] [address] PCP - [facility] DATA MANAGEMENT SPECIALIST 07/01/22 04/01/24 Penelope Garcia NP [address] [place] [address] PCP - General Family Medicine 10/03/23 Ce Reyes MD [address] [place] [address] PCP - [facility] DATA MANAGEMENT SPECIALIST 04/02/24 documented as of this encounter
--- OUTSIDE RECORDS SUMMARY | 2024-12-17 14:51 | XMS_ITS | Patient Health Record ---
Author Organization [facility] Address [address] [place] [address] Care Team Providers Care Senior Rd Engineer Name Role Phone Ozzy Morrison [phone] Allergies Allergen (clinical drug ingredient) Drug/Non Drug [...] End Date Medicaid [employer] [place] [address] [place] [address] [id number] DEBORAH ESPINOZA Self - patient is the insured Medical (General) History Medical History History ICD Code Asthma/COPD Depression Anxiety Drug Allergies Surgical History Surgery Date(Month/Year) Left shoulder Hysterectomy Right wrist/forearm
--- NOTE | 2024-12-17 15:14 | PM.CN ---
Consult Note: HPI Data of Consult Patient: known to practice within the last 3 years Requesting Physician: Anna Stroud NP Primary Care Provider: KARIN MALONE Family Provider: CASH DANIEL Consult Narrative Reason for consult: neck pain Narrative: Yanci owen pleasant 39 year old female with chronic neck and UE pain unresponsive to > 6 weeks of PT/HEP, heat, ice, tylenol, NSAIDs presents for evaluation. noting pain 3/10 pressure stabbing increasing to 9/10 with standing, walking, lifting arms, shower, activity, sleep, and housework. reports prior bilateral C5-6 TFESI provided significant relief, >50% improvement greater than 3 months. utilizing baclofen and diclofenac gel PRN with benefit, denies side effects. cc:: CC: Anna Stroud NP Review of Systems ROS Musculoskeletal Reports: neck pain and extremity pain PFSH PFSH Medical History Osteoarthritis ?M19.90 - Unspecified osteoarthritis, unspecified site (ICD-10) Carpal tunnel syndrome ?G56.00 - Carpal tunnel syndrome, unspecified upper limb (ICD-10) Acid reflux ?K21.9 - Gastro-esophageal reflux disease without esophagitis (ICD-10) Asthma ?J45.909 - Unspecified asthma, uncomplicated (ICD-10) Heart murmur ?R01.1 - Cardiac murmur, unspecified (ICD-10) Irregular heartbeat ?I49.9 - Cardiac arrhythmia, unspecified (ICD-10) Surgical History History of carpal tunnel release ?Z98.890 - Other specified postprocedural states (ICD-10) History of hysterectomy ?Z90.710 - Acquired absence of both cervix and uterus (ICD-10) History of tubal ligation ?Z98.51 - Tubal ligation status (ICD-10) History of surgery on arm ?Z98.890 - Other specified postprocedural states (ICD-10) Social History Smoking status: Former smoker Little interest or pleasure in doing things: not at all Feeling down, depressed, or hopeless: not at all Meds Home Medications and Allergies Home Medications ?Medication ?Instructions ?Recorded ?Confirmed ?Type albuterol sulfate 90 mcg/actuation 2 puff inhalation Q6H PRN wheezing 11/15/22 09/08/24 History aerosol inhaler ciclopirox 0.77 % topical cream 1 applic topical Q12H 11/15/22 09/08/24 History diclofenac sodium 1 % topical gel 2 g topical QID 11/15/22 09/08/24 History ciclopirox 1 % shampoo 5 ml topical QWEEK 04/16/23 09/08/24 History epinephrine 0.3 mg/0.3 mL 0.3 mg (0.3 mL) IM ONCE PRN 10/01/23 09/08/24 Rx injection, auto-injector allergic reaction #2 ea famotidine 20 mg tablet (Pepcid) 20 mg PO BID #10 tabs 10/01/23 09/08/24 Rx aripiprazole 2 mg tablet 2 mg PO DAILY 02/11/24 09/08/24 History ibuprofen 800 mg tablet mg 09/08/24 History Allergies Allergy/AdvReac Type Severity Reaction Status Date / Time Penicillins Allergy Severe Rash Verified 09/08/24 08:20 tramadol Allergy Severe Swelling Verified 09/08/24 08:20 of Lip/Tongue/Throat Pertussis Vaccines Allergy Mild Unknown Verified 09/08/24 08:20 bees AdvReac Mild sob Uncoded 09/08/24 08:20 Exam Constitutional Documenting provider has reviewed patient's vital signs: yes Common normals: no apparent distress, oriented x3, healthy appearing, alert and well nourished General appearance: cooperative [facility] Common normals: normocephalic, hearing grossly normal bilaterally and moist oral mucous membranes Head and scalp: normocephalic Eye Common normals: PERRL Pupil: PERRL Neck & C-Spine Common normals: full ROM Cervical spine: pain with cervical ROM and cervical spine tenderness Other: positive spurlings decreased sensation bilateral C5,6 positive facet loading Chest Common normals: inspection of chest normal Respiratory Common normals: normal respiratory effort, no retractions and no use of accessory muscles Neuro Common normals: oriented x3 Sensorium/orientation: alert Psych Common normals: mental status grossly normal, thought process normal, cooperative, affect normal, speech normal and activity/motor behavior normal Speech: normal speech Thought process: normal thought process Results Additional Findings Additional findings: If on a controlled substance or opioids, I have checked an [place] report on this patient and there are no aberrancies noted in the prescribing history.??If on a controlled substance or opioid a drug screen was completed and reviewed within the last year, and if there has not been a drug screen completed we ordered one today to monitor higher risk, state monitored pain medication use. As part of providing excellent, safe, comprehensive care, the following was completed at our patient's visit: 1. A medication reconciliation and review to ensure accurate knowledge of current/active medications, including asking our patients to inform us about any [id number] medications or herbal remedies/nutritional supplements/alternative remedies. 2. A review to specifically ensure our patients have had annual screening for screening for depression, screening for tobacco use, and screening for unhealthy alcohol use. For concerning screenings had a discussion with the patient, provided patient education, and recommended follow-up with primary care provider when appropriate. If patient noted with a risk of falling, they received education on strength, gait, and balance training to prevent future risk of falling. Portions of this note may have been carried over from the previous visit and updated as appropriate. Please note this office utilizes paper charting in addition to the electronic medical record. A list of current medications, vitals, and PMH is available there as the clinical staff outside of myself do not have access to [employer] charting during the clinic day operations. As part of providing quality comprehensive care the current medications, vitals, and PMH were reviewed in the paper chart. Assessment and Plan Assessment and Plan (1) Cervical radiculopathy: (2) Cervical stenosis of spinal canal: (3) Lumbar spondylosis: Plan The patient has had over 3 months of moderate to severe neck and BUE pain with functional impairment and inadequate response to conservative care including NSAIDS (unless there are contraindication such as concurrent blood thinners), multiple oral or topical pain medications, and home exercise program/physical therapy.? Patient has completed >6 weeks of guided home exercise program and/or formal physical therapy program without relief of their symptoms.? I have reviewed the imaging of the cervical spine and no red flags were identified.? The imaging reveals radiographic findings consistent with cervical radiculopathy The Oswestry Disability Index was completed, and the patient scored a 42%.? repeat bilateral C5-6 TFESI under fluoroscopy continue current medications f/u 2 weeks after MAXX?
--- OUTSIDE RECORDS SUMMARY | 2024-12-17 15:55 | XMS_ITS | CCD ---
Author Organization [facility] CliniSynj Care Team Providers Care Marketing Operations Associate Name Role Phone KOLBY KIRK Admitting Unavailable KOLBY KIRK Attending Unavailable MISC, DR PETERSON Primary Care Unavailable KOLBY KIRK Consulting Unavailable JAYJAY, DALJIT Consulting Unavailable MISC, DR PETERSON Primary Care Unavailable LAWANDA, HENNY West Admitting Unavailable KATKO, HENNY West Attending Unavailable WEST, DR TEODORO Sears Consulting Unavailable KATKO, HENNY West Consulting Unavailable TIMMIS, DR WHITMAN Admitting Unavailable [...] ANGÉLICA, DR ALEGRIA Primary Care Unavailable HOODSANNA Consulting Unavailable HEMMER, DR CASH Gomes Consulting Unavailable LAKSHMIANJELICA FRENCH Primary Care Physician PENELOPE GARCIA Attending Unavailab le MARYAMRBACHEPENELOPE Berrios Admitting Unavailab le Maryamrbachefaiza SCHULTZ, Penelope Primary Care Provider Penelope Garcia APRN Attending Provider [phone] Penelope Garica APRN Primary Care Provider Penelope Garcia APRN Attending Provider Jose TAVARES, Penelope Chao Primary Care Provider Ce Reyes MD Unavailable PETITTI, SAIGE A Attending Unavailable Rohrbacher Penelope SCHULTZ Primary Care Provider Rohrbacher Penelope SCHULTZ Attending Provider [phone] Giedraitis , Andrius Vytautsander Attending Unavailable Giedraitis MD, Andrius Vytautas Attending Unavailable Giedraitis MD, Andrius Vytautas Attending Unavailable Giedraitis MD, Andrius Vytautas Attending Unavailable Giedraitis MD, Andrius Vytautas Attending Unavailable Giedraitis MD, Andrius Vytautas Attending Unavailable Giedraitis MD, Andrius Vytautas Attending Unavailable Rohrbacher Penelope SCHULTZ Primary Care Provider Rohrbacher Penelope SCHULTZ Attending Provider [phone] Lauren Garcianifer Admitting Unavailable Rohrbacher, Penelope Primary Care Unavailable Rohrbacher Penelope Attending Unavailable Rohrbacher Penelope Attending Unavailable Rohrbachefaiza Penelope Admitting Unavailable Lauren Garcianifer Primary Care Unavailable Allergies Allergy Classification Reported Allergen(s) Allergy Type Date of Onset Reaction(s) Facility (1 source) cefdinir Drug Allergy 5 [facility] (11 sources) Penicillins Drug allergy (disorder) 3 Hives [facility] (11 sources) predniSONE Drug Allergy 2 Heartburn [facility] (1 source) traMADol Drug Allergy 3 [facility] (1 source) Pertussis Immune Globulin Drug allergy (disorder) 3 [facility] (16 sources) spinach allergenic extract; Translations: [Spinach (substance)] Drug Allergy 3 Airway constriction (finding), Anaphylaxis [facility] (11 sources) bee venom protein (honey bee); Translations: [bee venom protein (honey bee)] Allergy to substance 4 Anaphylaxis [facility] (11 sources) diphtheria,pert ussis (acellular),te; Translations: [diphtheria,per tussis (acellular),te] Allergy to substance 4 Unknown Reaction [facility] (2 sources) Bee/Wasp/Ant venom; Translations: [Bee Stings] Drug allergy [facility] (2 sources) Penicillin; Translations: [penicillin] Drug Allergy [facility] (2 sources) Pertussis Vaccine; Translations: [Whooping-cough vaccine] Drug Allergy Airway constriction (finding) [facility] (2 sources) Sodium Bicarbonate; Translations: [Baking soda] Drug Allergy Red color (finding) [facility] (3 sources) buPROPion Drug Allergy 3 Hives [facility] Work Phone: (3 sources) FLUoxetine Drug Allergy 3 [facility] (3 sources) Honey bee venom Allergy to substance 2 Anaphylaxis [facility] Work Phone: (3 sources) Penicillin G Drug Allergy 3 [facility] (3 sources) Prednisone Allergy to substance 3 [facility] (3 sources) traMADol Drug Allergy 3 Unknown [facility] (3 sources) Pertussis Vaccines Drug Allergy 3 Unknown [facility] (1 source) Penicillins Drug allergy (disorder) 5 [facility] (1 source) predniSONE Drug Allergy 5 [facility] Medications Current Medications Medication Drug Class(es) Dates Sig (Normalized) Sig (Original) Acetaminophen / HYDROcodone (1 source) Opioid Agonist Start: 06-13-2011 Vicodin 500 mg-5 mg Tab 1 tab(s), Oral, q4hr as needed for pain, 10 tab(s), Refill(s) 0, Take one tab by mouth every four hours as needed for pain Start Date: 06/13/11 Status: Ordered Albuterol Sulfate 90 mcg/actuation HFA aerosol inhaler [...] or wheezing 6.7 January 30, 2024 3:08pm baclofen 10 mg oral tablet (2 sources) gamma-Aminobutyric Acid-ergic Agonist Start: 10-28-2024 take 1 tablet by mouth three times daily ciclopirox 10 mg/ml medicated shampoo (20 sources) Start: 10-09-2024 Ciclopirox 1 % shampoo Indications: Other seborrheic dermatitis Use as shampoo 2-3x/week, allow to sit on scalp for 5 minutes before rinsing off 120 mL 10/09/2024 Active Start: 10-09-2024 ciclopirox (Lo prox) 0.77 % cream Indications: Other seborrheic dermatitis Apply (0.7g) to face once daily 30 g 10/09/2024 Active Start: 10-09-2024 Ciclopirox 1 % shampoo Indications: Other seborrheic dermatitis Use as shampoo 2-3x/week, allow to sit on scalp for 5 minutes before rinsing off 120 mL 10/09/2024 Active Start: 10-09-2024 ciclopirox (Lo prox) 0.77 % cream Indications: Other seborrheic dermatitis Apply (0.7g) to face once daily 30 g 10/09/2024 Active Start: 10-09-2023 End: 10-09-2024 Ciclopirox 1 % shampoo Indic ations: Other seborrheic dermatitis Use as shampoo 2-3x/week, allow to sit on scalp for 5 minutes before rinsing off 120 mL 10/09/2023 10/09/2024 Discontinued Start: 06-20-2023 End: 02-01-2024 Ciclopirox 1 % shampoo Disco ntinued TOPICAL June 20, 2023 12:00am February 01, 2024 9:32am Start: 06-20-2023 End: 10-09-2024 Ciclopirox 0.77 % cream Disc ontinued 1 APPLIC TOPICAL Daily June 20, 2023 12:00am February 01, 2024 9:32am Start: 06-20-2023 End: 02-01-2024 Ciclopirox Discontinued TOPI EBONY June 20, 2023 12:00am February 01, 2024 9:32am [id number] 0.3 ml EPINEPHrine 1 mg/ml auto-injector (14 sources) alpha-Adrenergic Agonist, beta-Adrenergic Agonist, Catecholamine Start: 06-20-2023 End: 11-24-2024 Start: 06-06-2023 EPINEPHrine (E pipen) 0.3 MG/0.3ML injection syringe Indications: Allergic reaction to bee sting Inject 0.3 mL (0.3 mg) as directed Daily as needed for anaphylaxis (Must be seen in ER if medication used) 2 each 2 06/06/2023 Active fluticasone / salmeterol (1 source) Corticosteroid, beta2-Adrenergic Agonist Start: 12-07-2009 take 1 puff(s) by inhalation once daily Advair 250 mcg-50 mcg Powder 1 puff(s), Inhalation, Daily, Refill(s) 0 Start Date: 12/07/09 Status: Ordered ibuprofen 800 mg oral tablet (20 sources) Nonsteroidal Anti-inflammatory Drug Start: 12-25-2023 End: 03-24-2024 take 1 tablet by mouth every eight hours as needed for pain Start: 06-20-2023 End: 12-25-2023 take 1 tablet by mouth every six hours as needed Ibuprofen 800 mg tablet Discontinued 800 MG PO Every 6 hours as needed June 20, 2023 12:00am December 25, 2023 11:24am Start: 01-05-2022 take 1 tablet by librado three times daily as needed for pain ibuprofen 800 MG tablet Take 800 mg by mouth 3 (three) times a day as needed for mild pain or moderate pain. 01/05/2022 Active Singulair (1 source) Leukotriene Receptor Antagonist Start: [...] Drug Class(es) Dates Sig (Normalized) Sig (Original) [id number] 200 actuat albuterol 0.09 mg/actuat metered dose inhaler (20 sources) beta2-Adrenergic Agonist Start: 01-30-2024 take 1 puff(s) by inhalation every six hours Albuterol Sulfate Active 2 PUFF INHALATION Every 6 hours 6.7 January 30, 2024 4:08pm Start: 06-20-2023 take 2.5 mg by inhal ation every four to six hours as needed for wheezing Start: 06-20-2023 End: 10-27-2024 take 1 puff(s) by inhalation every six hours as needed for wheezing Albuterol Sulfate 90 mcg/actuation HFA aerosol inhaler Discontinued 2 PUFF INHALATION Every 6 hours as needed for shortness of breath or wheezing 6.7 January 30, 2024 4:08pm October 27, 2024 7:46am albuterol HFA (V entolin HFA) 90 mcg/act inhaler every 6 (six) hours. Active ARIPiprazole 2 mg oral tablet (20 sources) Atypical Antipsychotic Start: 06-20-2023 End: 08-04-2024 take 1 tablet by mouth once daily Aripiprazole 2 mg tablet Discontinued 2 MG PO Daily 90 February 01, 2024 9:44am August 04, 2024 1:31pm diclofenac sodium 0.01 mg/mg topical gel (13 sources) Nonsteroidal Anti-inflammatory Drug Start: 06-20-2023 End: 02-01-2024 Diclofenac Sodium 1 % gel Discontinued TOPICAL June 20, 2023 12:00am February 01, 2024 9:32am Start: 06-20-2023 End: 02-01-2024 Diclofenac Sodium 1 % gel Di scontinued TOPICAL June 20, 2023 12:00am February 01, 2024 9:32am Start: 06-20-2023 End: 02-01-2024 Diclofenac Sodium 1 % gel Di scontinued TOPICAL June 19, 2023 11:00pm February 01, 2024 8:32am Start: 06-20-2023 End: 02-01-2024 Diclofenac Sodium Discontinu ed TOPICAL June 20, 2023 12:00am February 01, 2024 9:32am Start: 06-20-2023 Diclofenac Sod ium Active TOPICAL June 20, 2023 12:00am Start: 06-06-2023 diclofenac sod ium 1 % gel Indications: Contracture of joint of right hand Apply 2 g topically in the morning and 2 g at noon and 2 g in the evening and 2 g before bedtime. 50 g 2 06/06/2023 Active doxycycline monohydrate 100 mg oral tablet (10 sources) Tetracycline-class Drug Start: 06-20-2023 End: 02-01-2024 take 1 tablet by mouth twice daily Doxycycline Monohydrate 100 mg tablet Discontinued 100 MG PO Twice daily 19 01June 20, 2023 12:00am February 01, 2024 9:32am famotidine 20 mg oral tablet (18 sources) Histamine-2 Receptor Antagonist Start: 02-01-2024 End: 08-04-2024 take 1 tablet by mouth once daily Famotidine 20 mg tablet Discontinued 20 MG PO Daily February 01, 2024 9:45am August 04, 2024 1:31pm methylPREDNISolone 4 mg oral tablet (8 sources) Corticosteroid Start: 09-27-2023 End: 02-01-2024 take 1 tablet by mouth once Methylprednisolone (Medrol (Dominick)) 4 mg tablets,dose pack Discontinued 0 PO per package directions 20 09September 27, 2023 12:00am February 01, 2024 9:33am PO PER PKG DIR mupirocin 0.02 mg/mg topical ointment (10 sources) RNA Synthetase Inhibitor Antibacterial Start: 06-20-2023 End: 02-01-2024 Mupirocin 2 % ointment Discontinued 1 APPLIC TOPICAL Twice daily 21 10June 20, 2023 12:00am February 01, 2024 9:33am Problems Active Problems Problem Classification Problem Date Documented Date Episodic/Chronic Allergic reactions (1 source) Allergy to honey bee venom; Translations: [Bee allergy status] 11-24-2024 Episodic Anxiety disorders (17 sources) Anxiety; Translations: [Anxiety disorder, unspecified] 06-20-2023 Chronic Asthma (15 sources) Unspecified asthma, uncomplicated; Translations: [Asthma] Onset: 01-02-2022 06-20-2023 Chronic Cardiac and circulatory congenital anomalies (12 sources) Congenital heart disease; 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, unspecified] Onset: 11-28-2024 08-06-2023 Chronic Cardiac dysrhythmias (14 sources) Irregular heart beat; Translations: [Cardiac arrhythmia, unspecified] 06-20-2023 Chronic Comment on above: has pin hole in hear t Conduction disorders (1 source) Conduction disorder of the heart 06-13-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 Deficiency and other anemia (1 source) Anemia 06-13-2013 Episodic Disorders of lipid metabolism (3 sources) Raised low density lipoprotein cholesterol; Translations: [Pure hypercholesterolemia, unspecified] Onset: 09-22-2022 09-22-2022 Chronic E Codes: Struck by; against (1 source) Striking against or struck by other objects, initial encounter; Translations: [STRIKING AGNST/STRUCK OTH OBJ INIT] Onset: 01-02-2022 Episodic Early or threatened labor (1 source) Premature labor 06-13-2013 Episodic Esophageal disorders (12 sources) Gastroesophageal reflux disease; Translations: [Gastro-esophageal reflux disease without esophagitis] 02-01-2024 Chronic Genitourinary congenital anomalies (12 sources) Congenital anomaly of the kidney; 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, unspecified] Onset: 09-22-2022 04-29-2024 Chronic Heart valve disorders (1 source) Heart murmur 06-13-2013 Episodic Miscellaneous mental health disorders (14 sources) Psychogenic headache; 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] 08-07-2023 Chronic Mood disorders (20 sources) Depressive disorder; Translations: [Depression] Onset: 11-07-2022 06-20-2023 Chronic Osteoarthritis (15 sources) Unspecified osteoarthritis, unspecified site; Translations: [Arthritis] Onset: 01-02-2022 06-20-2023 Chronic Comment on above: Right wrist/arm Other acquired deformities (5 sources) Scoliosis, unspecified; Translations: [Scoliosis [and kyphoscoliosis], idiopathic] Onset: 04-11-2021 06-20-2023 Chronic Other acquired deformities (10 sources) Scoliosis deformity of spine; Translations: [Scoliosis, unspecified] 06-20-2023 Chronic Other acquired deformities (9 sources) Deformity of lower limb; Translations: [Unspecified acquired deformity of right thigh] 08-07-2023 Episodic Other acquired deformities (5 sources) Unspecified acquired deformity of right thigh; Translations: [Other acquired deformity of other parts of limb] 08-06-2023 Episodic Other bone disease and musculoskeletal deformities (1 source) 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 Other bone disease and musculoskeletal deformities (3 sources) Idiopathic scoliosis of thoracic and lumbar spine; Translations: [Other idiopathic scoliosis, thoracolumbar region] Onset: 09-22-2022 09-22-2022 Chronic Other congenital anomalies (1 source) 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 Other congenital anomalies (3 sources) 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; 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, unspecified] Onset: 09-22-2022 09-22-2022 Chronic Other connective tissue disease (8 sources) Triggering of digit; Translations: [Trigger finger, unspecified finger] 06-20-2023 Episodic Other connective tissue disease (3 sources) Trigger finger, unspecified finger; Translations: [Trigger finger (acquired)] 06-20-2023 Episodic Other connective tissue disease (2 sources) Trigger finger of right hand; Translations: [Trigger finger, unspecified finger] 06-20-2023 Episodic Other inflammatory condition of skin (2 sources) Seborrheic dermatitis; Translations: [Other seborrheic dermatitis] 10-09-2024 Episodic Other nervous system disorders (11 sources) Carpal tunnel syndrome; Translations: [Carpal tunnel syndrome, unspecified upper limb] 06-20-2023 Chronic Other nervous system disorders (3 sources) Carpal tunnel syndrome of left wrist; Translations: [Carpal tunnel syndrome, left upper limb] Onset: 09-22-2022 09-22-2022 Chronic Other non-traumatic joint disorders (3 sources) Derangement of right shoulder joint; Translations: [Other specific joint derangements of right shoulder, not elsewhere classified] Onset: 09-22-2022 09-22-2022 Chronic Other non-traumatic joint disorders (3 sources) Pain in right ankle and joints of right foot; Translations: [PAIN IN RIGHT ANKLE] Onset: 12-31-2021 Episodic Other screening for suspected conditions (not mental disorders or infectious disease) (8 sources) Patient encounter status; Translations: [Encounter for screening for osteoporosis] 04-29-2024 Episodic Other skin disorders (8 sources) Eruption; Translations: [Rash and other nonspecific skin eruption] 09-27-2023 Episodic Other skin disorders (1 source) Rash and other nonspecific skin eruption; Translations: [Rash and other nonspecific skin eruption] 09-27-2023 Episodic Other skin disorders (10 sources) Ingrowing great toenail; Translations: [Ingrowing nail] Episodic Other skin disorders (2 sources) Disorder of right lower extremity; Translations: [Localized swelling, mass and lump, right lower limb] 10-28-2024 Episodic Other upper respiratory infections (12 sources) Maxillary sinusitis; Translations: [Chronic maxillary sinusitis] 06-20-2023 Chronic Poisoning by nonmedicinal substances (4 sources) Allergic reaction to bee sting; Translations: [Toxic effect of venom of bees, accidental (unintentional), initial encounter] Onset: 09-22-2022 09-22-2022 Episodic Residual codes; unclassified (6 sources) Family history of osteoporosis; Translations: [Family history of osteoporosis] 04-29-2024 Episodic Residual codes; unclassified (2 sources) Family history of osteoporosis; Translations: [Family history of osteoporosis] 04-29-2024 Episodic Residual codes; unclassified (2 sources) Acquired absence of both cervix and uterus; Translations: [Acquired absence of both cervix and uterus] 04-29-2024 Episodic Spondylosis; intervertebral disc disorders; other back problems (4 sources) Lumbar spondylosis; Translations: [Spondylosis without myelopathy or radiculopathy, lumbar region] 09-10-2024 Chronic Spondylosis; intervertebral disc disorders; other back problems (19 sources) Chronic low back pain; Translations: [Chronic low back pain] Onset: 03-07-2023 02-01-2024 Episodic Sprains and strains (8 sources) Sprain of right ankle; Translations: [Sprain of unspecified ligament of right ankle, initial encounter] 04-29-2024 Episodic Superficial injury; contusion (2 sources) Contusion of right ankle, initial encounter; Translations: [Contusion of left lower leg, initial encounter] Onset: 04-11-2021 Episodic Unclassified (1 source) Streptococcus agalactiae (organism) 08-11-2009 Unclassified (1 source) L60.0 - Ingrowing nail Past or Other Problems Problem Classification Problem Date Documented Da te Episodic/Chronic Diseases of mouth; excluding dental (7 sources) Other diseases of salivary glands; Translations: [Mass of parotid gland] Onset: 09-13-2021 Resolved: 05-23-2023 Episodic E Codes: Fall (1 source) Unspecified fall, initial encounter; Translations: [UNSPECIFIED FALL INITIAL ENCOUNTER] Onset: 04-11-2021 Episodic Lymphadenitis (3 sources) Lymphadenopathy; Translations: [Generalized enlarged lymph nodes] Onset: 09-22-2022 Resolved: 05-23-2023 05-23-2023 Episodic Other connective tissue disease (3 sources) Pain in left leg; Translations: [PAIN IN LEFT LEG] Onset: 04-07-2021 Episodic Other connective tissue disease (3 sources) Pain in limb; Translations: [Pain in unspecified limb] Onset: 09-22-2022 Resolved: 05-23-2023 05-23-2023 Episodic Other injuries and conditions due to external causes (3 sources) H/O: injury; Translations: [Personal history of other (healed) physical injury and trauma] Onset: 09-22-2022 09-22-2022 Episodic Other nervous system disorders (3 sources) Skin sensation disturbance; Translations: [Unspecified disturbances of skin sensation] Onset: 09-22-2022 09-22-2022 Episodic Other nervous system disorders (3 sources) Numbness of hand; Translations: [Anesthesia of skin] Onset: 09-22-2022 09-22-2022 Episodic Other non-traumatic joint disorders (4 sources) Pain in left hip; Translations: [PAIN IN LEFT HIP] Onset: 04-18-2021 Episodic Residual codes; unclassified (3 sources) Acquired absence of cervix and uterus; Translations: [Acquired absence of both cervix and uterus] Onset: 09-22-2022 09-22-2022 Episodic Residual codes; unclassified (3 sources) Difficulty sleeping ; Translations: [Sleep disorder, unspecified] Onset: 09-22-2022 09-22-2022 Episodic Residual codes; unclassified (3 sources) Impairment; Translations: [Other general symptoms and signs] Onset: 10-25-2022 10-25-2022 Episodic Screening and history of mental health and substance abuse codes (3 sources) Ex-smoker; Translations: [Personal history of nicotine dependence] Onset: 05-23-2023 05-23-2023 Episodic Substance-related disorders (4 sources) Nicotine dependence, cigarettes, uncomplicated; Translations: [Tobacco dependence syndrome] Onset: 06-29-2017 Resolved: 05-23-2023 05-23-2023 Chronic Results Test Name Value Interpretation Reference Range Facility [facility] echo transthoracicon [facility] echo transthoracic [facility] Main [place] [address] [place] [address] Echocardiogram Signed Patient: Yanci Loco MR#: [id number] : 1985 Acct:[id number] Age/Sex: 39 / F ADM Date: 11/28/24 Loc: Room: Type: [facility] Attending Dr: Penelope Garcia APRN, NP-C Ordering Provider: Penelope Garcia APRN, CNP Date of Service: 11/28/24 [facility] echo transthoracic: Q24.9 - Congenital malformation of heart, unspecified Copies to: Penelope Garcia APRN, CNP Linda Njoroge, MD Weight: 188 lb Performed By: SHEELA Zimmerman BSA: 1.9 m2 BP: 130/91 mmHg HR: 74 Reason For Study: Q24.9 - Congenital malformation of heart, unspecified History: former smoker, hole in heart Interpretation Summary Ejection Fraction = 65-70%. The left ventricular size and thickness are normal. No regional wall motion abnormalities noted. A variety of Doppler measurements indicate normal left ventricular diastolic function. No evidence of intracardiac shunting noted on ECHO. Consider cardiac MRI for further evaluation if clinically indicated. There is no comparison study available. Procedure/Quality: A two-dimensional transthoracic echocardiogram with color flow, Doppler and injection of contrast agent Definity was performed. The study was technically good in quality. Left Ventricle: The left ventricular size and thickness are normal. Ejection Fraction = 65-70%. A variety of Doppler measurements indicate normal left ventricular diastolic function. No regional wall motion abnormalities noted. Left Atrium: The left atrium appears normal in size. Right Atrium: The right atrium appears normal in size. Right Ventricle: The right ventricle is normal in size and function. Aortic Valve: The aortic valve is normal in structure. No hemodynamically significant valvular aortic stenosis. No aortic regurgitation is present. Mitral Valve: The mitral valve is normal in structure. No significant mitral valve stenosis. There is no mitral regurgitation noted. Tricuspid Valve: The tricuspid valve is normal in structure. No tricuspid regurgitation. Pulmonic Valve: The pulmonic valve is not well visualized. No significant pulmonic regurgitation. Arteries: The aortic root is normal size. Pericardium/Pleura: No pericardial effusion seen. IVC/Hepatic Veins: The inferior vena cava is normal in size, with a normal collapsibility index. Measurements with Normals IVSd: 1.0 cm (0.7-1.1 cm)LVIDd: 4.6 cm (3.7-5.4 cm) LVPWd: 0.96 cm (0.7-1.1 cm)LVIDs: 2.8 cm (2.3-3.6 cm) LA dimension: 3.1 cm (2.3-4.0 cm)Ao root diam: 2.5 cm(2.0-3.6 cm) asc Aorta Diam: 2.4 cm(2.1-3.4cm) Doppler with Normals LV V1 max: 97.5 cm/sec (0.7-1.7m/s)MV E max herberth: 79.5 cm/sec(0.8-1.3m/s) MV A max herberth: 76.6 cm/sec(0.0-0.0m/s) MV E/A: 1.0 (<1.5) MMode/2D Measurements Calculations RVDd: 2.2 cm FS: 38.3 % Ao root area: LVOT diam: 2.0 cm TAPSE: 3.0 cm EDV(Teich): 5.0 cm2 LVOT area: 3.2 cm2 RV S Herberth: 95.2 ml 10.6 cm/sec ESV(Teich): 29.8 ml EF(Teich): 68.7 % __ LVLd ap4: 7.0 cm SV(MOD-sp4): LAV(MOD-sp4): LA A2 area: 13.2 cm2 EDV(MOD-sp4): 44.4 ml 10.1 ml 61.1 ml LAV(MOD-sp2): LA A4 area: 7.0 cm2 LVLs ap4: 5.4 cm 32.3 ml LA length (vol): ESV(MOD-sp4): 4.0 cm 16.7 ml LA vol: 19.8 ml EF(MOD-sp4): 72.7 % LA vol index: 10.3 ml/m2 Doppler Measurements Calculations MV dec time: E/E' lat: MV dec slope: Ao V2 max: 0.24 sec 6.2 153.2 cm/sec E/E' med: 338.5 cm/sec2 Ao max P.4 mmHg 7.2 Ao mean P.9 mmHg Ao V2 mean: 117.0 cm/sec Ao V2 VTI: 33.1 cm SHER(I,D): 1.8 cm2 SHER(V,D): 2.0 cm2 __ LV V1 max P.8 mmHg LV V1 mean P.1 mmHg LV V1 mean: 68.5 cm/sec LV V1 VTI: 18.8 cm Transcribed By: SCV Performed At: 11/28/24 0618 Signed By: Morenita Hopson MD 11/28/24 0817 Normal [facility] US renal RTon 05-12-2024 renal RT [facility] [place] [address] Ultrasound Report Signed Patient: Yanci Loco MR#: [id number] 612 : 1985 Acct:[id number] Age/Sex: 38 / F ADM Date: 05/12/24 Loc: Room: Type: [facility] Attending Dr: Penelope Garcia APRN, ADMITTING COORDINATOR-C Ordering Provider: Penelope Garcia APRN, DOG SITTER Date of Service: 05/12/24 US/US renal RT: [...] Whitney Jr., DPerOPer05/12/2024 4:24 PM Dictation Location: [place] [address] Tech: Dana Del Rosariovincenzo Transcribed By: TANA 05/12/24 1624 Dictated By: Mike Whitney Jr, DO 05/12/24 1623 Signed By: 05/12/24 1624 Normal [facility] Basophils Auto (Bld) [#/Vol] on 04-30-2024 Basophils (Bld) [#/Vol] Automated basophil count 0.0-0.1 [facility] Basophils/100 WBC Auto (Bld) on 04-30-2024 Basophils/100 WBC (Bld) Automated basophil % 0.2-2.0 [facility] Cholesterol in LDL Calc [Mas s/Vol]on 04-30-2024 Cholesterol in LDL [Mass/Vol] Cholesterol in LDL [Mass/volume] in Serum or Plasma by calculation [facility] Comment on above: <100 mg/dl [id number] 0-129 mg/dl NEAR OR ABOVE [id number] mg/dl BORDERLINE [id number] mg/dl HIGH>190 mg/dl VERY HIGH Cholesterol in VLDL Calc [Ma ss/Vol]on 04-30-2024 Cholesterol in VLDL [Mass/Vol] Cholesterol in VLDL [Mass/volume] in Serum or Plasma by calculation [facility] Eosinophils/100 WBC Auto (Bl d)on 04-30-2024 Eosinophils/100 WBC (Bld) Automated eosinophil % 0.9-7.0 [facility] Erythrocyte distribution wid th Auto (RBC) [Ratio]on 04-30-2024 Erythrocyte distribution width (RBC) [Ratio] Erythrocyte distribution width [Ratio] by Automated count 11.0-15.0 [facility] Estimated glomerular filtrat ion rate (GFR) non- Americanon 04-30-2024 GFR/1.73 sq M.predicted among non-blacks MDRD (S/P/Bld) [Vol rate/Area] Estimated glomerular filtration rate (GFR) non- >=60 mL/min/1.73m 2 [facility] Globulin Calc (S) [Mass/Vol] on 04-30-2024 Globulin (S) [Mass/Vol] Serum globulin measurement by calculation (mass/volume) [facility] Hematocrit Auto (Bld) [Volum e fraction]on 04-30-2024 Hematocrit (Bld) [Volume fraction] Hematocrit [Volume Fraction] of Blood by Automated count 36.0-48.0 [facility] Hemoglobin [Mass/volume] in Bloodon 04-30-2024 Hemoglobin (Bld) [Mass/Vol] Hemoglobin [Mass/volume] in Blood 12.0-16.0 [facility] Laboratory - Chemistry and C hemistry - challengeon 04-30-2024 Albumin [Mass/Vol] 3.6 g/dL 3.4-5.0 [facility] ALP [Catalytic activity/Vol] 70 U/L 46-116 [facility] ALT [Catalytic activity/Vol] 28 U/L 14-59 [facility] AST [Catalytic activity/Vol] 17 U/L 15-37 [facility] Bilirubin [Mass/Vol] 0.3 mg/dL 0.2-1.0 [facility] Calcium [Mass/Vol] 8.6 mg/dL 8.5-10.1 [facility] Chloride [Moles/Vol] 104 mmol/L 98-107 [facility] Cholesterol [Mass/Vol] 227 mg/dL High <=200 [facility] Cholesterol in HDL [Mass/Vol] 59 mg/dL 40-60 [facility] Comment on above: > or =60 mg/dl - LOW CARDIOVASCULAR RISK<40 mg/dl - HIGH CARDIOVASCULAR RISK CO2 [Moles/Vol] 26.5 mmol/L 21.0-32.0 [facility] Creatinine [Mass/Vol] 1.02 mg/dL 0.55-1.02 [facility] GFR/1.73 sq M.predicted MDRD (S/P/Bld) [Vol rate/Area] mL/min/{1.73_m2} >=60 mL/min/1.73m 2 [facility] Glucose [Mass/Vol] 86 mg/dL 74-106 [facility] Potassium [Moles/Vol] 3.6 mmol/L 3.5-5.1 [facility] Protein [Mass/Vol] 7.4 g/dL 6.4-8.2 [facility] Sodium [Moles/Vol] 140 mmol/L 136-145 [facility] Triglyceride [Mass/Vol] 165 mg/dL High <=150 [facility] Urea nitrogen [Mass/Vol] 16.0 mg/dL 7.0-18.0 [facility] Urea nitrogen/Creatinine [Mass ratio] 15.7 mg/mg [facility] Laboratory - Hematology and Cell countson 04-30-2024 Immature granulocytes/100 WBC (Bld) 0.1 % 0.0-0.5 [facility] Leukocytes [#/volume] correc souleymane for nucleated erythrocytes in Blood by Automated counon 04-30-2024 WBC corrected for nucl RBC Auto (Bld) [#/Vol] Leukocytes [#/volume] corrected for nucleated erythrocytes in Blood by Automated coun 4.0-11.0 [facility] Lymphocytes Auto (Bld) [#/Vo l]on 04-30-2024 Lymphocytes (Bld) [#/Vol] Lymphocytes [#/volume] in Blood by Automated count 1.2-3.8 [facility] Lymphocytes/100 WBC Auto (Bl d)on 04-30-2024 Lymphocytes/100 WBC (Bld) Lymphocytes/100 leukocytes in Blood by Automated count 20.5-60.0 [facility] MCH Auto (RBC) [Entitic mass ]on 04-30-2024 MCH (RBC) [Entitic mass] MCH [Entitic mass] by Automated count 26.7-34.0 [facility] MCHC Auto (RBC) [Mass/Vol]on 04-30-2024 MCHC (RBC) [Mass/Vol] MCHC [Mass/volume] by Automated count 29.9-35.2 [facility] MCV Auto (RBC) [Entitic vol] on 04-30-2024 MCV (RBC) [Entitic vol] MCV [Entitic volume] by Automated count 81.0-99.0 [facility] Monocytes Auto (Bld) [#/Vol] on 04-30-2024 Monocytes (Bld) [#/Vol] Automated blood monocyte count 0.3-0.8 [facility] Monocytes/100 WBC Auto (Bld) on 04-30-2024 Monocytes/100 WBC (Bld) Automated monocyte % 1.7-12.0 [facility] Neutrophils Auto (Bld) [#/Vo l]on 04-30-2024 Neutrophils (Bld) [#/Vol] Neutrophils [#/volume] in Blood by Automated count 1.4-6.5 [facility] Neutrophils/100 WBC Auto (Bl d)on 04-30-2024 Neutrophils/100 WBC (Bld) Automated neutrophil % 43.0-75.0 [facility] No Panel Informationon 04-30 Eosinophils # (Auto) 0.1 10 3/uL 0.0-0.7 [facility] Immature Granulocyte # (Auto) 0.01 10 3/uL 0.00-0.03 [facility] Platelet mean volume Auto (B ld) [Entitic vol]on 04-30-2024 Platelet mean volume (Bld) [Entitic vol] Platelet mean volume [Entitic volume] in Blood by Automated count 9.5-13.5 [facility] Platelets Auto (Bld) [#/Vol] on 04-30-2024 Platelets (Bld) [#/Vol] Platelets [#/volume] in Blood by Automated count 150-450 [facility] RBC Auto (Bld) [#/Vol]on RBC (Bld) [#/Vol] Erythrocytes [#/volume] in Blood by Automated count 4.20-5.40 [facility] Serum or plasma albumin/glob ulin mass ratioon 04-30-2024 Albumin/Globulin [Mass ratio] Serum or plasma albumin/globulin mass ratio [facility] Serum or plasma anion gap de terminationon 04-30-2024 Anion gap [Moles/Vol] Serum or plasma an ion gap determination [facility] Serum or plasma total choles terol/high density lipoprotein (HDL) cholesterol mass lucie 04-30-2024 Cholesterol.total/Cho lesterol in HDL [Mass ratio] Serum or plasma total cholesterol/high density lipoprotein (HDL) cholesterol mass rat [facility] Comment on above: 3.3 - [...] mGy = na DAP = na [facility] Consent for Treatmenton 07-31 Consent for Treatment [id number] [facility] Physician Orderon 08-14-2023 Physician Order [id number]# 1.00TIFF Normal [facility] XR ANKLE RT MIN 3 VIEWSon XR [...] RO Date: 2021-12-31 22:43 Normal [facility] CT NECK ST W CONon CT NECK [...] DELACRUZ Date: 2021-09-13 17:01 Normal [facility] XR HIP LT 2 3V W PELVISon [...] HOOD Date: 2021-04-18 11:23 Normal [facility] Vital Signs Date Time Vital Sign Value Performing Clinician Jessiei mallyy 10-28-2024 14:36-0400 Body height 165.1 cm Penelope Jose SCHULTZ Work Phone: [facility] 10-28-2024 14:36-0400 Body mass index (BMI) [Ratio] 31.2 kg/m2 Penelope Jose SCHULTZ Work Phone: [facility] 10-28-2024 14:36-0400 Body temperature 97.6 [degF] Penelope Jose SCHULTZ Work Phone: [facility] 10-28-2024 14:36-0400 Body weight 85.27 kg Penelope Jose SCHULTZ Work Phone: [facility] 10-28-2024 14:36-0400 Diastolic blood pressure 74 mm[Hg] Penelope Garcia APRN Work Phone: [facility] 10-28-2024 14:36-0400 Heart rate 72 /min Penelope Garcia APRN Work Phone: [facility] 10-28-2024 14:36-0400 SaO2% (BldA) [Mass fraction] 100 % Penelope Garcia APRN Work Phone: [facility] 10-28-2024 14:36-0400 Systolic blood pressure 118 mm[Hg] Penelope Garcia APRN Work Phone: [facility] 09-10-2024 10:09-0400 Body height 165.1 cm [facility] 09-10-2024 10:09-0400 Body mass index (BMI) [Ratio] 31.8 kg/m2 [facility] 09-10-2024 10:09-0400 Body temperature 96.4 [degF] [facility] 09-10-2024 10:09-0400 Body weight 86.63 kg [facility] 09-10-2024 10:09-0400 Diastolic blood pressure 72 mm[Hg] [facility] 09-10-2024 10:09-0400 Heart rate 79 /min [facility] 09-10-2024 10:09-0400 SaO2% (BldA) [Mass fraction] 100 % [facility] 09-10-2024 10:09-0400 Systolic blood pressure 108 mm[Hg] [facility] 08-04-2024 13:04-0400 Body height 165.1 cm Penelope Garcia APRN Work Phone: [facility] 08-04-2024 13:04-0400 Body mass index (BMI) [Ratio] 31.9 kg/m2 Penelope Garcia APRN Work Phone: [facility] 08-04-2024 13:04-0400 Body temperature 96.7 [degF] Penelope Garcia APRN Work Phone: [facility] 08-04-2024 13:04-0400 Body weight 87.08 kg Penelope Garcia APRN Work Phone: [facility] 08-04-2024 13:04-0400 Heart rate 77 /min Penelope Jose SCHULTZ Work Phone: [facility] 08-04-2024 13:04-0400 SaO2% (BldA) [Mass fraction] 99 % Penelope Garcia ANTOINE Work Phone: [facility] 04-29-2024 12:59-0500 Body height 165.1 cm [facility] 04-29-2024 12:59-0500 Body temperature 98.4 [degF] [facility] 04-29-2024 12:59-0500 Diastolic blood pressure 72 mm[Hg] [facility] 04-29-2024 12:59-0500 Heart rate 80 /min [facility] 04-29-2024 12:59-0500 SaO2% (BldA) [Mass fraction] 99 % [facility] 04-29-2024 12:59-0500 Systolic blood pressure 116 mm[Hg] [facility] 02-01-2024 09:28-0400 Body height 165.1 cm [facility] 02-01-2024 09:28-0400 Body mass index (BMI) [Ratio] 30.9 kg/m2 [facility] 02-01-2024 09:28-0400 Body temperature 96.8 [degF] [facility] 02-01-2024 09:28-0400 Body weight 84.48 kg [facility] 02-01-2024 09:28-0400 Diastolic blood pressure 76 mm[Hg] [facility] 02-01-2024 09:28-0400 Heart rate 70 /min [facility] 02-01-2024 09:28-0400 SaO2% (BldA) [Mass fraction] 98 % [facility] 02-01-2024 09:28-0400 Systolic blood pressure 124 mm[Hg] [facility] 09-27-2023 13:58-0400 Body height 165.1 cm [facility] 09-27-2023 13:58-0400 Body mass index (BMI) [Ratio] 30.4 kg/m2 [facility] 09-27-2023 13:58-0400 Body weight 83.06 kg [facility] 09-27-2023 13:58-0400 Diastolic blood pressure 76 mm[Hg] [facility] 09-27-2023 13:58-0400 Heart rate 70 /min [facility] 09-27-2023 13:58-0400 Respiratory rate 12 /min [facility] 09-27-2023 13:58-0400 Systolic blood pressure 122 mm[Hg] [facility] 08-06-2023 15:26-0400 Body height 165.1 cm [facility] 08-06-2023 15:26-0400 Body mass index (BMI) [Ratio] 29.7 kg/m2 [facility] 08-06-2023 15:26-0400 Body temperature 97.5 [degF] [facility] 08-06-2023 15:26-0400 Body weight 81.19 kg [facility] 08-06-2023 15:26-0400 Diastolic blood pressure 74 mm[Hg] [facility] 08-06-2023 15:26-0400 Heart rate 71 /min [facility] 08-06-2023 15:26-0400 Respiratory rate 18 /min [facility] 08-06-2023 15:26-0400 SaO2% (BldA) [Mass fraction] 98 % [facility] 08-06-2023 15:26-0400 Systolic blood pressure 110 mm[Hg] [facility] 06-20-2023 14:49-0400 Body height 165.1 cm [facility] 06-20-2023 14:49-0400 Body mass index (BMI) [Ratio] 29.7 kg/m2 [facility] 06-20-2023 14:49-0400 Body weight 81.19 kg [facility] 06-20-2023 14:49-0400 Diastolic blood pressure 80 mm[Hg] [facility] 06-20-2023 14:49-0400 Heart rate 78 /min [facility] 06-20-2023 14:49-0400 SaO2% (BldA) [Mass fraction] 98 % [facility] 06-20-2023 14:49-0400 Systolic blood pressure 116 mm[Hg] [facility] Encounters Encounter Date Encounter Type Care Provider Facility Start: 11-28-2024 End: 11-28-2024 Patient encounter procedure Penelope Garcia APRN [facility]IT[facility] Work Phone: Start: 11-28-2024 End: 11-28-2024 ambulatory Penelope Garcia APRN Work Phone: [facility] Work Phone: Start: 10-28-2024 End: 10-28-2024 ambulatory Penelope Garcia APRN Work Phone: [facility] Work Phone: Start: 10-28-2024 End: 10-28-2024 Patient encounter procedure Penelope Garcia APRN [facility] Work Phone: Start: 10-09-2024 End: 10-09-2024 Bamboo flowsheet Saige [place] MD Work Phone: [facility] Start: 10-09-2024 End: 10-09-2024 Bamboo flowsheet Saige [place] MD Work Phone: [facility] Start: 10-09-2024 End: 10-09-2024 ambulatory SAIGE [place] Not Available Start: 10-09-2024 End: 10-09-2024 Office outpatient visit 15 minutes Saige [place] MD Work Phone: [facility] Comment on above: Other seborrheic angela matitis (Primary Dx) Start: 09-10-2024 End: 09-10-2024 ambulatory [facility] Work Phone: Start: 09-10-2024 End: 09-10-2024 Patient encounter procedure [facility] Work Phone: Start: 09-08-2024 End: 09-08-2024 ambulatory Katie Lipscomb MD Facility:[facility] Start: 08-04-2024 End: 08-04-2024 ambulatory Penelope Garcia APRN Work Phone: [facility] Work Phone: Start: 08-04-2024 End: 08-04-2024 Patient encounter procedure [facility] Work [facility] Start: 07-28-2024 End: 07-28-2024 ambulatory Katie Lipscomb MD Facility:[facility] Start: 06-23-2024 End: 06-23-2024 ambulatory Katie Lipscomb MD Facility:[facility] Start: 05-26-2024 End: 05-26-2024 ambulatory Katie Lipscomb MD Facility:[facility] Start: 05-12-2024 End: 05-12-2024 Patient encounter procedure Penelope Garcia APRN Work Phone: [facility] [place] Work Phone: Start: 05-12-2024 End: 05-12-2024 ambulatory Penelope Garcia APRN Work Phone: [facility] Work Phone: Start: 04-30-2024 Non-patient / Non-visit Ruthie Garcia APRN Work Phone: [facility] Work Phone: Start: 04-29-2024 Patient encounter status [facility] Start: 04-29-2024 End: 04-29-2024 ambulatory [facility] Work Phone: Start: 04-29-2024 End: 04-29-2024 Encounter for general adult medical examination without abnormal findings [facility] Start: 04-29-2024 End: 04-29-2024 Patient encounter procedure [facility] Work Phone: Start: 04-28-2024 End: 04-28-2024 ambulatory Katie Lipscomb MD Facility:[facility] Start: 04-22-2024 Non-patient / Non-visit [facility] Work Phone: Start: 03-10-2024 End: 03-10-2024 ambulatory Katie Lipscomb MD Facility:[facility] Start: 02-11-2024 End: 02-11-2024 ambulatory Katie Lipscomb MD Facility:[facility] Start: 02-01-2024 End: 02-01-2024 ambulatory [facility] Work Phone: Start: 02-01-2024 End: 02-01-2024 Patient encounter procedure [facility] Work Phone: Start: 09-27-2023 End: 09-27-2023 ambulatory [facility] Work Phone: Start: 09-27-2023 End: 09-27-2023 Patient encounter procedure [facility] Work Phone: Start: 08-14-2023 End: 08-15-2023 ambulatory PENELOPE GARCIA Facility[facility] Start: 08-14-2023 End: 08-14-2023 Patient encounter procedure PENELOPE GARCIA [facility] Start: 08-06-2023 End: 08-06-2023 ambulatory [facility] Work Phone: Start: 08-06-2023 End: 08-06-2023 Patient encounter procedure [facility] Work Phone: Start: 06-20-2023 End: 06-20-2023 ambulatory [facility] Work Phone: Start: 06-20-2023 End: 06-20-2023 Patient encounter procedure [facility] Work Phone: Start: 01-09-2022 End: 01-10-[address] CASH DANIEL Facility:[facility] Start: 12-31-2021 End: 01-01-2022 ambulatory KOLBY KIRK Facility:[facility] Start: 09-13-2021 End: 09-14-[address] J CARLOS AGUILAR Facility:[facility] Start: 04-18-2021 End: 04-19-[address] CASH DANIEL Facility:[facility] Start: 04-07-2021 End: 04-07-[address] DOCTOR CASTILLO Facility:[facility] Procedures Date Procedure Procedure Detail Performing Clinician Start: 05-12-2024 Ultrasonography of right kidney Penelope Garcia APRN Work Phone: Start: 02-18-2019 End: 05-23-2023 H/O: hysterectomy History of hysterectomy Saige [place] MD Work Phone: H/O: hysterectomy History of hysterectomy History of decompres fly of median nerve History of carpal tunnel surgery of right wrist Ligation of fallopian tube J DONNA GARCIA right forearm PENELOPE DORAN Plan of Treatment Date Care Activity Detail Author Start: 10-13-2025 End: 10-13-2025 Patient encounter procedure 10/13/2025 1:20 PM EDT Office Visit [facility] [address] [place] [address] Saige [place] MD [address] [place] [address] [facility] Start: 12-01-2024 Influenza vaccination Influenz a Vaccine (#1) [facility] Start: 10-28-[address] [facility] Work Phone: Start: 04-29-[address] [facility] Work Phone: Start: 02-01-[address] [facility] Work Phone: Start: 06-20-[address] [facility] Work Phone: Comprehensive metabo lic 2000 panel - Serum or Plasma [facility] DXA Skeletal system. axial Views for bone density [facility] Patient Education Low back pain in adults [facility] Work Phone: Patient referral [facility] Work Phone: [facility] Extrem[facility] US Heart Tran[facility]horacic On [facility] US Kidney - bilateral [facility] Immunizations Immunization Date Immunization Notes Care Provider Fa cility 04-07-2021 diphtheria, tetanus toxoids and pertussis vaccine Saige [place] MD Work Phone: [facility] 11-29-2001 hepatitis B vaccine, pediatric or pediatric/adolescent dosage Saige [place] MD Work Phone: [facility] Healthcare Payers Date Payer Category Payer Self-pay 2023 Unknown 2021 Private Health Insurance [facility] MEDICAID [id number] 2021 Medicaid [id number] 1985 Unknown [id number] [id number]. 593 1986 Unknown [id number] 2.16.840.1.101397.3.579.2. 593 1986 Unknown [id number] 2.16.840.1.102023.3.579.2. 593 1986 Unknown [id number] 2.16.840.1.875065.3.579.2. 593 1986 Unknown [id number] 2.16.840.1.357799.3.579.2. 593 1986 Unknown [id number] 2.16.840.1.803563.3.579.2. 727 1986 Unknown [id number] 2.16.840.1.094739.3.579.2. 1259 1986 Unknown [id number] 2.16.840.1.312757.3.579.2. 196 1986 Unknown [id number] 2.16.840.1.478103.3.579.2. 196 1986 Unknown [id number] 2.16.840.1.926838.3.579.2. 196 1986 Unknown [id number] 2.16.840.1.010219.3.579.2. 196 1986 Unknown [id number] 2.16.840.1.118917.3.579.2. 196 1986 Unknown [id number] 2.16.840.1.076939.3.579.2. 196 1986 Unknown [id number] 2.16.840.1.421779.3.579.2. 196 1959 Unknown [id number] Medicaid [employer] [id number] Unknown [id number] 2.16.840.1.876025.3.579.2. 531 Unknown [id number] 2.16.840.1.591267.3.579.2. 531 Social History Date Type Detail Facility Start: 06-20-2023 Tobacco smoking stat us [facility] Never smoked tobacco (finding) [facility] Start: 1985 Sex Assigned At Female F [facility] Tobacco smoking status Marisol berrios [facility] Start: 12-13-2022 End: 02-01-2024 Tobacco smoking status ORIS Ex-smoker (finding) [facility] Start: 04-29-2024 End: 09-10-2024 Sex Female (finding) [facility] End: 03-27-2022 History of tobacco use Current smoker [facility] End: 03-27-2022 History of tobacco use Cigarette Smoker [facility] Start: 12-13-2022 Tobacco use and exposure Smokeless tobacco non-user [facility] Start: 10-10-2023 End: 10-09-2024 Alcoholic beverage intake Lifetime non-drinker (finding) [facility] Start: 10-10-2023 History of Social function [facility] Start: 10-10-2023 Tobacco use panel [facility] Start: 12-13-2022 Tobacco Comment Last smoked : > 1 month [facility] Start: 1985 Sex assigned at Not on file [facility] Clinical Notes 04-07-2021 to 10-28-2024 Saige [place] MD - 10/09/2024 1:05 PM EDT Note Date & Type Note Facility 10-28-2024 Hospital Discharg e instructions Ambulatory OrdersReferral to Podiatry Time Frame: 10/28/24, Location: None Selected [facility] Work Phone: 10-09-2024 History of Presen t illness Narrative Follow up Diagnosis: Seborrheic Dermatitis Location: face, scalp Last visit: 1 year ago Symptoms: occasional itching Status: clear today Current treatment: Ciclopirox cream 0.77% cream, Ciclopirox shampoo All pertinent medical history, medications, and allergies were reviewed. General Exam: alert, oriented to person, place, and time, normal affect, well appearing Accompanied by daughter A focused exam completed based on patient reported problems, see below: Skin Exam 1. OTHER SEBORRHEIC DERMATITIS Head - Anterior (Face), Mid Parietal Scalp Clear today on treatment. Discussed that seborrheic dermatitis is a chronic condition that can be controlled but not cured. Continue ciclopirox shampoo 2-3 times weekly, leave on 5-10 min, then rinse. Continue ciclopirox cream every day. Notify office if flaring despite treatment. Related Medications Ciclopirox 1 % shampoo Use as shampoo 2-3x/week, allow to sit on scalp for 5 minutes before rinsing off ciclopirox (Loprox) 0.77 % cream Apply (0.7g) to face once daily Next Visit: 1 year documented in this encounter [facility] 09-10-2024 Evaluation note Diagnosis Onset Date Resolution Cervical stenosis of spine acute September 10, 2024 10:07am Lumbar spondylosis acute August 312024 10:07am Ingrowing left great toenail acute October 28, 2024 2:33pm Ingrowing right great toenail acute October 28, 2024 2:33pm Localized swelling, mass and lump, right lower limb acute October 28, 2024 2:33pm [facility] Work Phone: 1(278) 693-559905-05-2025 Evaluation note* Diagnosis Onset Date Resolution Status [...] Stress headaches acute August 04, 2024 1:00pm [facility] Work Phone: 1(434) 985-713905-05-2025 Evaluation note* Diagnosis Onset Date Resolution Status [...] Stress headaches acute August 04, 2024 1:00pm Cervical stenosis of spine acute September 10, 2024 10:07am Lumbar spondylosis acute August 312024 10:07am Ingrowing left great toenail acute October 28, 2024 2:33pm Ingrowing right great toenail acute October 28, 2024 2:33pm [facility] Work Phone: 1(464) 875-917302-10-2025 [facility] [place] [address] [place] [address] Ultrasound Report Signed Patient: Yanci Loco MR#: [id number] : 1985 Acct:[id number] Age/Sex: 38 / F ADM Date: 5 Loc: Room: Type: [facility] Attending Dr: Penelope Garcia APRN, NP-C [...] IMPRESSION: Normal renal ultrasound. Impression dictated by: iMke Whitney Jr., D.OPer05/12/2024 4:24 PM Dictation Location: [place] [address] Tech: Dana Pack Transcribed By: TANA 05/12/24 162 Dictated By: Mike Whitney Jr, DO 05/12/24 162 Signed By: 05/12/24 162 [facility]01-28-2025 Evaluation note* Diagnosis Onset Date Resolution Status Admit Date Family history of osteoporosis acute April 29, 2024 12:56pm History of hysterectomy acute J anuary 2024 12:56pm Kidney anomaly, congenital acute April 29, 2024 12:56pm Screening for osteoporosis acute April 29, 2024 12:56pm Sprain of right ankle acute Apr 12:56pm [facility] Work Phone: 1(424) 322-311011-01-2024 Evaluation note* Diagnosis Onset Date Resolution Status [...] Apr 12:56pm Wellness examination acute 2024 12:56pm [facility] Work Phone: 1(704) 359-631803-20-2024 Hospital Discharge instructionsAmbulatory Orders* Referral to Orthopedic Surgery Time Frame: 06/20/23, Location: None Selected [facility] Work Phone: 1(885) 798-462710-10-2022 NotePROCEDURE: XR ANKLE RT MIN 3 VIEWS HISTORY: Contusion of right ankle ; acute anterior right ankle pain since injury 16 days ago COMPARISON: XR ankle right 12/31/2021 FINDINGS: BONES:No fracture, acute abnormality, or significant arthropathy. SOFT TISSUES:No visible soft tissue swelling. EFFUSION:None visible. OTHER: Negative. IMPRESSION: 1. Normal examination. Electronically authenticated by: LIZANDRO DELACRUZ Date: 2022-01-09 16:12[facility] NotePROCEDURE: XR FEMUR LT COMPARISON: None. HISTORY: Unspecified fall FINDINGS: BONES:No fracture, acute abnormality, or significant arthropathy. SOFT TISSUES:Negative. No visible soft tissue swelling. EFFUSION:None visible. OTHER: Negative. IMPRESSION: No acute abnormality Electronically authenticated by: TEODORO WHITLEY Date: 2021-04-07 09:14[facility] No data available for this section [facility] Diagnosis Onset Date Resolution Status Anxiety acute Asthma acute Depression acute Irregular heart beat acute Maxillary sinusitis acute Scoliosis acute Trigger finger of right hand acute [facility] Work Phone: Evaluation note* Diagnosis Onset Date Resolution Status Anxiety acute Asthma acute Depression acute Irregular heart beat acute Maxillary sinusitis acute Scoliosis acute Trigger finger of right hand acute Congenital heart defect acut e Irregular heart beat acute Scoliosis acute [facility] Work Phone: Evaluation note* Diagnosis Onset Date Resolution Status Congenital heart defect acut e Deformity of right lower extremity acute Irregular heart beat acute Scoliosis acute Stress headaches acute Trigger finger of right hand acute Rash acute [facility] Work Phone: Evaluation note* Diagnosis Onset Date Resolution Status Anxiety acute Chronic lower back pain acut e Deformity of right lower extremity acute Depression acute GERD (gastroesophageal reflux disease) acute Stress headaches acute [facility] Work Phone: Evaluation note* Diagnosis Onset [...] Stress headaches acute August 04, 2024 1:00pm [facility] Work Phone: Evaluation note* Diagnosis Other seborrheic dermatitis- Primary [facility] No data available for this section [facility] instructions[facility]ulatory Orders* Referral to Pain Management Time Frame: 02/01/24, Location: None [facility] Work Phone: Hospital Discharge instructionsAmbulatory Orders* Referral to Podiatry Time Frame: 04/29/24, Location: None Selected [facility] Work Phone: Progress note No data available for this section [facility] (narrative)No reason for referral [facility] Work [facility]: Summary Purpose Family History No Family History [...] 6 month f/u August 04, 2024 1:00pm Chief Complaint Admit Date 6 month f/u August 04, 2024 1:00pm Discuss Disability September 10, 2024 10:0 7am both big toenails infected October 28 2:33pm Reason for Visit Admit Date Anxiety August 04, 2024 1:00pm Arthritis August 04, 2024 1:00pm Chronic lower back pain August 04, 2024 1: 00pm Deformity of right lower extremity August 042024 1:00pm Depression August 04, 2024 1:00pm GERD (gastroesophageal reflux disease) M ay 2024 1:00pm Stress headaches August 04, 2024 1:00pm Cervical stenosis of spine September 10 10:07am Lumbar spondylosis September 10, 2024 10:0 7am Ingrowing left great toenail October 28, 2024 2:33pm Ingrowing right great toenail October 28, 2024 2:33pm Chief Complaint Admit Date Discuss Disability September 10, 2024 10:0 7am both big toenails infected October 28 2:33pm Q24.9 November 28, 2024 2: 47pm Reason for Visit Admit Date Cervical stenosis of spine September 10 10:07am Lumbar spondylosis September 10, 2024 10:0 7am Ingrowing left great toenail October 28, 2024 2:33pm Ingrowing right great toenail October 28, 2024 2:33pm Localized swelling, mass and lump, right lower limb October 28, 2024 2:33pm Additional Source Comments INFORMATION SOURCE (unrecogn ized section and content) DATE CREATED AUTHOR 01/10/2022 [facility] DATE CREATED AUTHOR AUTHOR'S ORGANIZ ATION 08/16/2023 [facility] DATE CREATED AUTHOR AUTHOR'S ORGANIZ ATION 10/13/2024 [facility] EPIC DATE CREATED AUTHOR AUTHOR'S ORGANIZ ATION 11/01/2024 [facility] DATE CREATED AUTHOR AUTHOR'S ORGANIZ ATION 11/30/2024 [facility] Care Teams (unrecognized sec tion and content) Team Status: Active Member Role Status Dates Penelope Garcia APRN ADMITTING COORDINATOR-C Primary Care Provider Active Team Status: Inactive Member Role Status Dates Penelope Garcia APRN ADMITTING COORDINATOR-C Primary Care Provider, Attending Provider Active Start: June 20, 2023 End: June 20, 2023 Team Status: Inactive Member Role Status Dates Penelope Garcia APRN ADMITTING COORDINATOR-C Primary Care Provider, Attending Provider Active Start: August 06, 2023 End: August 06, 2023 Team Status: Inactive Member Role Status Dates Penelope Garcia APRN ADMITTING COORDINATOR-C Primary Care Provider, Attending Provider Active Start: September 27, 2023 End: September 27, 2023 Team Status: Inactive Member Role Status Dates Penelope Garcia APRN ADMITTING COORDINATOR-C Primary Care Provider, Attending Provider Active Start: February 01, 2024 End: February 01, 2024 Team Status: Active Member Role Status Dates Penelope Garcia APRN ADMITTING COORDINATOR-C Primary Care Provider Active Start: April Khadijah Corbin CMA Attending Provider Active Start: April 22, 2024 Team Status: Inactive Member Role Status Dates Penelope Garcia APRN ADMITTING COORDINATOR-C Primary Care Provider, Attending Provider Active Start: April 29, 2024 End: April 29, 2024 Team Status: Active Member Role Status Dates Penelope Garcia APRN ADMITTING COORDINATOR-C Primary Care Provider, Attending Provider Active Start: April 30, 2024 Team Status: Inactive Member Role Status Dates Penelope Garcia APRN ADMITTING COORDINATOR-C Primary Care Provider, Attending Provider Active Start: May 12, 2024 End: May 12, 2024 Team Status: Inactive Member Role Status Dates Penelope Garcia APRN ADMITTING COORDINATOR-C Primary Care Provider, Attending Provider Active Start: August 04, 2024 End: August 04, 2024 Team Status: Inactive Member Role Status Dates Penelope Garcia APRN ADMITTING COORDINATOR-C Primary Care Provider, Attending Provider Active Start: September 10, 2024 End: September 10, 2024 Marketing Operations Associate Relationship Specialty Start Date End Date Penelope Garcia NP [address] [facility] [place] [address] PCP - General Family Medicine 10/03/23 Ce Reyes MD [address] [place] [id number] PCP - [facility] 04/02/24 Marketing Operations Associate Relationship Specialty Start Date End Date Penelope Garcia NP [address] [facility] [address] PCP - General Family [facility] 10/03/23 Ce Reyes MD [address] [place] [address] [address] [place] [address] PCP [facility] 04/02/24 Team Status: Inactive Member Role Status Dates Penelope GantANTOINE ansari ADMITTING COORDINATOR-C Primary Care Provider Active Start: August 04, 2024 End: August 04, 2024 Penelope Gantcoty FLEET MECHANIC ADMITTING COORDINATOR-C Attending Provider Act deo Start: August 04, 2024 End: August 04, 2024 Team Status: Inactive Member Role Status Dates Penelope ANTOINE Garcia ADMITTING COORDINATOR-C Primary Care Provider Active Start: September 10, 2024 End: September 10, 2024 Penelope ANTOINE Garcia ADMITTING COORDINATOR-C Attending Provider Act deo Start: September 10, 2024 End: September 10, 2024 Team Status: Inactive Member Role Status Dates Penelope ANTOINE Garcia ADMITTING COORDINATOR-C Primary Care Provider Active Start: October 28, 2024 End: October 28, 2024 Penelope ANTOINE Garcai ADMITTING COORDINATOR-C Attending Provider Act deo Start: October 28, 2024 End: October 28, 2024 Team Status: Inactive Member Role Status Dates Penelope Gantcoty FLEET MECHANIC ADMITTING COORDINATOR-C Primary Care Provider Active Start: November 28, 2024 End: November 28, 2024 Penelope GantJASSI ansariN ADMITTING COORDINATOR-C Attending Provider Act deo Start: November 28, 2024 End: November 28, 2024 Goals (unrecognized section and content) Goals [...] BE BASED ON THE PRIMARY CLINICAL RECORDS. [facility] provides no warranty or guarantee of the accuracy or completeness of information in this document.
== END 2024-12-17 14:41 | disposition home or self-care (01) ==
LOC: PM 14:47
PROVIDERS: Family Provider Physician Assistant; PCP Nurse Practitioner Family; Visit Provider Nurse Practitioner
DX: M54.12 Radiculopathy, cervical region (principal); M48.02 Spinal stenosis, cervical region; M47.816 Spondylosis without myelopathy or radiculopathy, lumbar region
CPT/HCPCS: G0463

== ENCOUNTER 2025-01-12 07:56 | Day surgery (SDC) | payer OTHER, SELFPAY ==
--- OUTSIDE RECORDS SUMMARY | 2025-01-12 08:00 | XMS_ITS | CCD ---
Author Organization [facility] CliniSyar Care Team Providers Care Training Coordinator Name Role Phone KOLBY KIRK Admitting Unavailable [...] Provider Penelope Garcia APRN Attending Provider [phone] Penelope Garcia APRN Primary Care Provider Penelope Garcia APRN Attending Provider [phone] Jose TAVARES, Penelope Chao Primary Care Provider Ce Reyes MD Unavailable PETITTI, SAIGE A Attending Unavailable Rohrbacher Penelope SCHULTZ Primary Care Provider Rohrbacher Penelope SCHULTZ Attending Provider [phone] Giedraitis , Andrius Vytautsander Attending Unavailable Giedraitis MD, Andrius Vytautas Attending Unavailable Giedraitis MD, Andrius Vytautas Attending Unavailable Giedraitis MD, Andrius Vytautas Attending Unavailable Giedraitis MD, Andrius Vytautas Attending Unavailable Giedraitis MD, Andrius Vytautas Attending Unavailable Giedraitis MD, Andrius Vytautas Attending Unavailable Rohrbacher Penelope SCHULTZ Primary Care Provider MaryamrbachePenelope beriros APRN Attending Provider Penelope Garcia Admitting Unavailable MaryamrbLauren dorannifer Attending Unavailable MaryamrbachePenelope berrios Primary Care Unavailable BrookachePenelope berrios Attending Unavailable MaryamrbachePenelope berrios Primary Care Unavailable Penelope Garcia Admitting Unavailable Allergies Allergy Classification Reported Allergen(s) Allergy Type Date of Onset Reaction(s) Facility (1 source) cefdinir Drug Allergy 5 [facility] (11 sources) Penicillins Drug allergy (disorder) 3 Hives [facility] (11 sources) predniSONE Drug Allergy 2 Heartburn [facility] (1 source) traMADol Drug Allergy 3 [facility] (1 source) Pertussis Immune Globulin Drug allergy (disorder) 3 [facility] (16 sources) spinach allergenic extract; Translations: [Spinach (substance)] Drug Allergy 3 Airway constriction (finding), Anaphylaxis [facility] (11 sources) bee venom protein (honey bee); Translations: [bee venom protein (honey bee)] Allergy to substance 4 Anaphylaxis [facility] (11 sources) diphtheria,pert ussis (acellular),te; Translations: [diphtheria,per tussis (acellular),te] Allergy to substance 4 Unknown Reaction [facility] (2 sources) Bee/Wasp/Ant venom; Translations: [Bee Stings] Drug allergy [facility] (2 sources) Penicillin; Translations: [penicillin] Drug Allergy [facility] (2 sources) Pertussis Vaccine; Translations: [Whooping-cough vaccine] Drug Allergy Airway constriction (finding) [facility] (2 sources) Sodium Bicarbonate; Translations: [Baking soda] Drug Allergy Red color (finding) [facility] (3 sources) buPROPion Drug Allergy 3 Hives [...] (1 source) Penicillins Drug allergy (disorder) 5 [facility] (1 source) predniSONE Drug Allergy 5 [facility] Medications Current Medications Medication Drug Class(es) [...] 20, 2023 12:00am February 01, 2024 9:32am [id number] 0.3 ml EPINEPHrine 1 mg/ml auto-injector (14 [...] Drug Class(es) Dates Sig (Normalized) Sig (Original) [id number] 200 actuat albuterol 0.09 mg/actuat metered dose [...] Test Name Value Interpretation Reference Range Facility [facility] echo transthoracicon [facility] echo transthoracic 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 [address] Ultrasound Report Signed Patient: Yanci Loco MR#: [id number] : 1985 Acct:[id number] Age/Sex: 38 / F ADM Date: 05/12/24 Loc: Room: Type: [facility] Attending Dr: Penelope Garcia APRN, CLINICAL REHAB SPECIALIST-C Ordering Provider: Penelope Garcia APRN, INVENTORY CONTROL COORDINATOR Date of Service: 05/12/24 US/US renal RT: [...] Whitney Jr., DPerOPer05/12/2024 4:24 PM Dictation Location: [place] [address] Tech: Dana Del Rosariovincenzo Transcribed By: TANA 05/12/24 1624 Dictated By: Mike Whitney Jr, DO 05/12/24 1623 Signed By: 05/12/24 1624 Normal [facility] Basophils Auto (Bld) [#/Vol] on 04-30-2024 Basophils (Bld) [#/Vol] Automated basophil count 0.0-0.1 [facility] Basophils/100 WBC Auto (Bld) on 04-30-2024 Basophils/100 WBC (Bld) Automated basophil % 0.2-2.0 [facility] Cholesterol in LDL Calc [Mas s/Vol]on 04-30-2024 Cholesterol in LDL [Mass/Vol] Cholesterol in LDL [Mass/volume] in Serum or Plasma by calculation [facility] Comment on above: <100 mg/dl [id number] 0-129 mg/dl NEAR OR ABOVE [id number] mg/dl BORDERLINE [id number] mg/dl HIGH>190 mg/dl VERY HIGH Cholesterol in VLDL Calc [Ma ss/Vol]on 04-30-2024 Cholesterol in VLDL [Mass/Vol] Cholesterol in VLDL [Mass/volume] in Serum or Plasma by calculation [facility] Eosinophils/100 WBC Auto (Bl d)on 04-30-2024 Eosinophils/100 WBC (Bld) Automated eosinophil % 0.9-7.0 [facility] Erythrocyte distribution wid th Auto (RBC) [Ratio]on 04-30-2024 Erythrocyte distribution width (RBC) [Ratio] Erythrocyte distribution width [Ratio] by Automated count 11.0-15.0 [facility] Estimated glomerular filtrat ion rate (GFR) non- Americanon 04-30-2024 GFR/1.73 sq M.predicted among non-blacks MDRD (S/P/Bld) [Vol rate/Area] Estimated glomerular filtration rate (GFR) non- >=60 mL/min/1.73m 2 [facility] Globulin Calc (S) [Mass/Vol] on 04-30-2024 Globulin (S) [Mass/Vol] Serum globulin measurement by calculation (mass/volume) [facility] Hematocrit Auto (Bld) [Volum e fraction]on 04-30-2024 Hematocrit (Bld) [Volume fraction] Hematocrit [Volume Fraction] of Blood by Automated count 36.0-48.0 [facility] Hemoglobin [Mass/volume] in Bloodon 04-30-2024 Hemoglobin (Bld) [Mass/Vol] Hemoglobin [Mass/volume] in Blood 12.0-16.0 [facility] Laboratory - Chemistry and C hemistry - challengeon 04-30-2024 Albumin [Mass/Vol] 3.6 g/dL 3.4-5.0 [facility] ALP [Catalytic activity/Vol] 70 U/L 46-116 [facility] ALT [Catalytic activity/Vol] 28 U/L 14-59 [facility] AST [Catalytic activity/Vol] 17 U/L 15-37 [facility] Bilirubin [Mass/Vol] 0.3 mg/dL 0.2-1.0 [facility] Calcium [Mass/Vol] 8.6 mg/dL 8.5-10.1 [facility] Chloride [Moles/Vol] 104 mmol/L 98-107 [facility] Cholesterol [Mass/Vol] 227 mg/dL High <=200 [facility] Cholesterol in HDL [Mass/Vol] 59 mg/dL 40-60 [facility] Comment on above: > or =60 mg/dl - LOW CARDIOVASCULAR RISK<40 mg/dl - HIGH CARDIOVASCULAR RISK CO2 [Moles/Vol] 26.5 mmol/L 21.0-32.0 [facility] Creatinine [Mass/Vol] 1.02 mg/dL 0.55-1.02 [facility] GFR/1.73 sq M.predicted MDRD (S/P/Bld) [Vol rate/Area] mL/min/{1.73_m2} >=60 mL/min/1.73m 2 [facility] Glucose [Mass/Vol] 86 mg/dL 74-106 [facility] Potassium [Moles/Vol] 3.6 mmol/L 3.5-5.1 [facility] Protein [Mass/Vol] 7.4 g/dL 6.4-8.2 [facility] Sodium [Moles/Vol] 140 mmol/L 136-145 [facility] Triglyceride [Mass/Vol] 165 mg/dL High <=150 [facility] Urea nitrogen [Mass/Vol] 16.0 mg/dL 7.0-18.0 [facility] Urea nitrogen/Creatinine [Mass ratio] 15.7 mg/mg [facility] Laboratory - Hematology and Cell countson 04-30-2024 Immature granulocytes/100 WBC (Bld) 0.1 % 0.0-0.5 [facility] Leukocytes [#/volume] correc souleymane for nucleated erythrocytes in Blood by Automated counon 04-30-2024 WBC corrected for nucl RBC Auto (Bld) [#/Vol] Leukocytes [#/volume] corrected for nucleated erythrocytes in Blood by Automated coun 4.0-11.0 [facility] Lymphocytes Auto (Bld) [#/Vo l]on 04-30-2024 Lymphocytes (Bld) [#/Vol] Lymphocytes [#/volume] in Blood by Automated count 1.2-3.8 [facility] Lymphocytes/100 WBC Auto (Bl d)on 04-30-2024 Lymphocytes/100 WBC (Bld) Lymphocytes/100 leukocytes in Blood by Automated count 20.5-60.0 [facility] MCH Auto (RBC) [Entitic mass ]on 04-30-2024 MCH (RBC) [Entitic mass] MCH [Entitic mass] by Automated count 26.7-34.0 [facility] MCHC Auto (RBC) [Mass/Vol]on 04-30-2024 MCHC (RBC) [Mass/Vol] MCHC [Mass/volume] by Automated count 29.9-35.2 [facility] MCV Auto (RBC) [Entitic vol] on 04-30-2024 MCV (RBC) [Entitic vol] MCV [Entitic volume] by Automated count 81.0-99.0 [facility] Monocytes Auto (Bld) [#/Vol] on 04-30-2024 Monocytes (Bld) [#/Vol] Automated blood monocyte count 0.3-0.8 [facility] Monocytes/100 WBC Auto (Bld) on 04-30-2024 Monocytes/100 WBC (Bld) Automated monocyte % 1.7-12.0 [facility] Neutrophils Auto (Bld) [#/Vo l]on 04-30-2024 Neutrophils (Bld) [#/Vol] Neutrophils [#/volume] in Blood by Automated count 1.4-6.5 [facility] Neutrophils/100 WBC Auto (Bl d)on 04-30-2024 Neutrophils/100 WBC (Bld) Automated neutrophil % 43.0-75.0 [facility] No Panel Informationon 04-30 Eosinophils # (Auto) 0.1 10 3/uL 0.0-0.7 [facility] Immature Granulocyte # (Auto) 0.01 10 3/uL 0.00-0.03 [facility] Platelet mean volume Auto (B ld) [Entitic vol]on 04-30-2024 Platelet mean volume (Bld) [Entitic vol] Platelet mean volume [Entitic volume] in Blood by Automated count 9.5-13.5 [facility] Platelets Auto (Bld) [#/Vol] on 04-30-2024 Platelets (Bld) [#/Vol] Platelets [#/volume] in Blood by Automated count 150-450 [facility] RBC Auto (Bld) [#/Vol]on RBC (Bld) [#/Vol] Erythrocytes [#/volume] in Blood by Automated count 4.20-5.40 [facility] Serum or plasma albumin/glob ulin mass ratioon 04-30-2024 Albumin/Globulin [Mass ratio] Serum or plasma albumin/globulin mass ratio [facility] Serum or plasma anion gap de terminationon 04-30-2024 Anion gap [Moles/Vol] Serum or plasma an ion gap determination [facility] Serum or plasma total choles terol/high density lipoprotein (HDL) cholesterol mass lucie 04-30-2024 Cholesterol.total/Cho lesterol in HDL [Mass ratio] Serum or plasma total cholesterol/high density lipoprotein (HDL) cholesterol mass rat [facility] Comment on above: 3.3 - 4.4 LOW [...] in mGy = na DAP = na [facility] Consent for Treatmenton 07-31 Consent for Treatment [id number]#1 .00TIFF [facility] Physician Orderon 08-14-2023 Physician Order [id number]# 1.00TIFF Normal [facility] XR ANKLE RT MIN 3 VIEWSon XR [...] [facility] [...] 165.1 cm Penelope Jose SCHULTZ Work Phone: [facility] 10-28-2024 14:36-0400 Body mass index (BMI) [Ratio] 31.2 kg/m2 Penelope Jose SCHULTZ Work Phone: [facility] 10-28-2024 14:36-0400 Body temperature 97.6 [degF] Penelope Jose SCHULTZ Work Phone: [facility] 10-28-2024 14:36-0400 Body weight 85.27 kg Penelope Jose SCHULTZ Work Phone: [facility] 10-28-2024 14:36-0400 Diastolic blood pressure 74 mm[Hg] Penelope Garcia APRN Work Phone: [facility] 10-28-2024 14:36-0400 Heart rate 72 /min Penelope Garcia APRN Work Phone: [facility] 10-28-2024 14:36-0400 SaO2% (BldA) [Mass fraction] 100 % Penelope Garcia APRN Work Phone: [facility] 10-28-2024 14:36-0400 Systolic blood pressure 118 mm[Hg] Penelope Garcia APRN Work Phone: [facility] 09-10-2024 10:09-0400 Body height 165.1 cm [facility] 09-10-2024 10:09-0400 Body mass index (BMI) [Ratio] 31.8 kg/m2 [facility] 09-10-2024 10:09-0400 Body temperature 96.4 [degF] [facility] 09-10-2024 10:09-0400 Body weight 86.63 kg [facility] 09-10-2024 10:09-0400 Diastolic blood pressure 72 mm[Hg] [facility] 09-10-2024 10:09-0400 Heart rate 79 /min [facility] 09-10-2024 10:09-0400 SaO2% (BldA) [Mass fraction] 100 % [facility] 09-10-2024 10:09-0400 Systolic blood pressure 108 mm[Hg] [facility] 08-04-2024 13:04-0400 Body height 165.1 cm Penelope Garcia APRN Work Phone: [facility] 08-04-2024 13:04-0400 Body mass index (BMI) [Ratio] 31.9 kg/m2 Penelope Garcia APRN Work Phone: [facility] 08-04-2024 13:04-0400 Body temperature 96.7 [degF] Penelope Garcia APRN Work Phone: [facility] 08-04-2024 13:04-0400 Body weight 87.08 kg Penelope Garcia APRN Work Phone: [facility] 08-04-2024 13:04-0400 Heart rate 77 /min Penelope Jose SCHULTZ Work Phone: [facility] 08-04-2024 13:04-0400 SaO2% (BldA) [Mass fraction] 99 % Penelope Garcia ANTOINE Work Phone: [facility] 04-29-2024 12:59-0500 Body height 165.1 cm [facility] 04-29-2024 12:59-0500 Body temperature 98.4 [degF] [facility] 04-29-2024 12:59-0500 Diastolic blood pressure 72 mm[Hg] [facility] 04-29-2024 12:59-0500 Heart rate 80 /min [facility] 04-29-2024 12:59-0500 SaO2% (BldA) [Mass fraction] 99 % [facility] 04-29-2024 12:59-0500 Systolic blood pressure 116 mm[Hg] [facility] 02-01-2024 09:28-0400 Body height 165.1 cm [facility] 02-01-2024 09:28-0400 Body mass index (BMI) [Ratio] 30.9 kg/m2 [facility] 02-01-2024 09:28-0400 Body temperature 96.8 [degF] [facility] 02-01-2024 09:28-0400 Body weight 84.48 kg [facility] 02-01-2024 09:28-0400 Diastolic blood pressure 76 mm[Hg] [facility] 02-01-2024 09:28-0400 Heart rate 70 /min [facility] 02-01-2024 09:28-0400 SaO2% (BldA) [Mass fraction] 98 % [facility] 02-01-2024 09:28-0400 Systolic blood pressure 124 mm[Hg] [facility] 09-27-2023 13:58-0400 Body height 165.1 cm [facility] 09-27-2023 13:58-0400 Body mass index (BMI) [Ratio] 30.4 kg/m2 [facility] 09-27-2023 13:58-0400 Body weight 83.06 kg [facility] 09-27-2023 13:58-0400 Diastolic blood pressure 76 mm[Hg] [facility] 09-27-2023 13:58-0400 Heart rate 70 /min [facility] 09-27-2023 13:58-0400 Respiratory rate 12 /min [facility] 09-27-2023 13:58-0400 Systolic blood pressure 122 mm[Hg] [facility] 08-06-2023 15:26-0400 Body height 165.1 cm [facility] 08-06-2023 15:26-0400 Body mass index (BMI) [Ratio] 29.7 kg/m2 [facility] 08-06-2023 15:26-0400 Body temperature 97.5 [degF] [facility] 08-06-2023 15:26-0400 Body weight 81.19 kg [facility] 08-06-2023 15:26-0400 Diastolic blood pressure 74 mm[Hg] [facility] 08-06-2023 15:26-0400 Heart rate 71 /min [facility] 08-06-2023 15:26-0400 Respiratory rate 18 /min [facility] 08-06-2023 15:26-0400 SaO2% (BldA) [Mass fraction] 98 % [facility] 08-06-2023 15:26-0400 Systolic blood pressure 110 mm[Hg] [facility] 06-20-2023 14:49-0400 Body height 165.1 cm [facility] 06-20-2023 14:49-0400 Body mass index (BMI) [Ratio] 29.7 kg/m2 [facility] 06-20-2023 14:49-0400 Body weight 81.19 kg [facility] 06-20-2023 14:49-0400 Diastolic blood pressure 80 mm[Hg] [facility] 06-20-2023 14:49-0400 Heart rate 78 /min [facility] 06-20-2023 14:49-0400 SaO2% (BldA) [Mass fraction] 98 % [facility] 06-20-2023 14:49-0400 Systolic blood pressure 116 mm[Hg] [facility] Encounters Encounter Date Encounter Type Care Provider Facility Start: 11-28-2024 End: 11-28-2024 Patient encounter procedure Penelope Garcia APRN INVENTORY CONTROL COORDINATOR -[facility] Work Phone: Start: 11-28-2024 End: 11-28-2024 ambulatory Penelope Garcia APRN Work Phone: [facility] Work Phone: Start: 10-28-2024 End: 10-28-2024 ambulatory Penelope Garcia APRN Work Phone: [facility] Work Phone: Start: 10-28-2024 End: 10-28-2024 Patient encounter procedure Penelope Garcia APRN [facility] Work Phone: Start: 10-09-2024 End: 10-09-2024 [...] (Primary Dx) Start: 09-10-2024 End: 09-10-2024 ambulatory [facility] Work Phone: Start: 09-10-2024 End: 09-10-2024 Patient encounter procedure [facility] Work Phone: Start: 09-08-2024 End: 09-08-2024 ambulatory Katie Lipscomb MD Facility:[facility] Start: 08-04-2024 End: 08-04-2024 ambulatory Penelope Garcia APRN Work Phone: [facility] Work Phone: Start: 08-04-2024 End: 08-04-2024 Patient encounter procedure Penelope Garcia APRN [facility] Work [facility]: Start: 07-28-2024 End: 07-28-2024 ambulatory Katie Lipscomb MD Facility:[facility] Start: 06-23-2024 End: 06-23-2024 ambulatory Katie Lipscomb MD Facility:[facility] Start: 05-26-2024 End: 05-26-2024 ambulatory Katie Lipscomb MD Facility:[facility] Start: 05-12-2024 End: 05-12-2024 Patient encounter procedure Penelope Garcia APRN Work Phone: [facility] [place] Work Phone: Start: 05-12-2024 End: 05-12-2024 ambulatory Penelope Garcia APRN Work Phone: [facility] Work Phone: Start: 04-30-2024 Non-patient / Non-visit Ruthie Garcia APRN Work Phone: [facility] Work Phone: Start: 04-29-2024 Patient encounter status [facility] Start: 04-29-2024 End: 04-29-2024 ambulatory [facility] Work Phone: Start: 04-29-2024 End: 04-29-2024 Encounter for general adult medical examination without abnormal findings [facility] Start: 04-29-2024 End: 04-29-2024 Patient encounter procedure [facility] Work Phone: Start: 04-28-2024 End: 04-28-2024 ambulatory Katie Lipscomb MD Facility:[facility] Start: 04-22-2024 Non-patient / Non-visit [facility] Work Phone: Start: 03-10-2024 End: 03-10-2024 ambulatory Katie Lipscomb MD Facility:[facility] Start: 02-11-2024 End: 02-11-2024 ambulatory Katie Lipscomb MD Facility:[facility] Start: 02-01-2024 End: 02-01-2024 ambulatory [facility] Work Phone: Start: 02-01-2024 End: 02-01-2024 Patient encounter procedure [facility] Work Phone: Start: 09-27-2023 End: 09-27-2023 ambulatory [facility] Work Phone: Start: 09-27-2023 End: 09-27-2023 Patient encounter procedure [facility] Work Phone: Start: 08-14-2023 End: 08-15-2023 ambulatory PENELOPE GARCIA Facility[facility] Start: 08-14-2023 End: 08-14-2023 Patient encounter procedure PENELOPE GARCIA [facility] Start: 08-06-2023 End: 08-06-2023 ambulatory [facility] Work Phone: Start: 08-06-2023 End: 08-06-2023 Patient encounter procedure [facility] Work Phone: Start: 06-20-2023 End: 06-20-2023 ambulatory [facility] Work Phone: Start: 06-20-2023 End: 06-20-2023 Patient encounter procedure [facility] Work Phone: Start: 01-09-2022 End: 01-10-2022 [...] procedure 10/13/2025 1:20 PM EDT Office Visit [facility] [address] [place] [address] Saige Rogers MD [address] [place] [address] [facility] Start: 12-01-2024 Influenza vaccination Influenz a Vaccine (#1) [facility] Start: 10-28-2024 Patient referral [facility] Work Phone: Start: 04-29-2024 Patient referral [facility] Work Phone: Start: 02-01-2024 Patient referral [facility] Work Phone: Start: 06-20-2023 Patient referral [facility] Work Phone: Comprehensive metabo lic 2000 panel - Serum or Plasma [facility] DXA Skeletal system. axial Views for bone density [facility] Patient Education Low back pain in adults [facility] Work Phone: Patient referral [facility] Work Phone: US Extremity [facility] US Heart Transthoracic [facility] US Kidney - bilateral [facility] Immunizations Immunization Date Immunization Notes Care Provider Fa cility 04-07-2021 diphtheria, tetanus toxoids and pertussis vaccine Saige Rogers MD Work Phone: [facility] 11-29-2001 hepatitis B vaccine, pediatric or pediatric/adolescent dosage Saige Rogers MD Work Phone: [facility] Payers Date Payer Category Payer Self-pay 2023 Unknown 2021 Private Health Insurance [facility] MEDICAID [id number] 2021 Medicaid [id number] 1985 Unknown [id number] 2.16.840.1.446449.3.579.2. 593 1985 Unknown [id number] 2.16.840.1.755428.3.579.2. 593 1986 Unknown [id number] 2.16.840.1.702866.3.579.2. 593 1986 Unknown [id number] 2.16.840.1.383368.3.579.2. 593 1986 Unknown [id number] 2.16.840.1.245873.3.579.2. 593 1986 Unknown [id number] 2.16.840.1.765442.3.579.2. 727 1986 Unknown [id number] 2.16.840.1.784105.3.579.2. 1259 1986 Unknown [id number] 2.16.840.1.860329.3.579.2. 196 1986 Unknown [id number] 2.16.840.1.166210.3.579.2. 196 1986 Unknown [id number] 2.16.840.1.938385.3.579.2. 196 1986 Unknown [id number] 2.16.840.1.690330.3.579.2. 196 1986 Unknown [id number] 2.16.840.1.060406.3.579.2. 196 1986 Unknown [id number] 2.16.840.1.347895.3.579.2. 196 1986 Unknown [id number] 2.16.840.1.599376.3.579.2. 196 1959 Unknown [id number] Medicaid [employer] [id number] Unknown [id number] 2.16.840.1.863310.3.579.2. 531 Unknown [id number] 2.16.840.1.726863.3.579.2. 531 Social History Date Type Detail Facility Start: 06-20-2023 Tobacco smoking stat us [facility] Never smoked tobacco (finding) [facility] Start: 1985 Sex Assigned At Female F [facility] Tobacco smoking status Marisol berrios [facility] Start: 12-13-2022 End: 02-01-2024 Tobacco smoking status MOIS Ex-smoker (finding) [facility] Start: 04-29-2024 End: 09-10-2024 Sex Female (finding) [facility] End: 03-27-2022 History of tobacco use Current [...] Podiatry Time Frame: 10/28/24, Location: None [facility] Work Phone: 10-09-2024 History of Presen [...] Visit: 1 year documented in this encounter [facility] 09-10-2024 Evaluation note Diagnosis Onset Date Resolution Cervical stenosis of spine acute September 10, 2024 10:07am Lumbar spondylosis acute August 312024 10:07am Ingrowing left great toenail acute October 28, 2024 2:33pm Ingrowing right great toenail acute October 28, 2024 2:33pm Localized swelling, mass and lump, right lower limb acute October 28, 2024 2:33pm [facility] Work Phone: 1(812) 292-720205-05-2025 Evaluation note* Diagnosis Onset Date Resolution Status [...] Stress headaches acute August 04, 2024 1:00pm [facility] Work Phone: 1(453) 497-192405-05-2025 Evaluation note* Diagnosis Onset Date Resolution Status [...] great toenail acute October 28, 2024 2:33pm [facility] Work Phone: 1(195) 770-273202-10-2025 [facility] [place] [address] [place] [address] Ultrasound Report Signed Patient: Yanci Loco MR#: [id number] : 1985 Acct:[id number] Age/Sex: 38 / F ADM Date: 5 Loc: Room: Type: [facility] Attending Dr: Penelope Garcia APRN, NP-C Ordering [...] Whitney Jr., D.OPer05/12/2024 4:24 PM Dictation Location: [place] [address] Tech: Dana Pack Transcribed By: TANA 05/12/24 162 Dictated By: Mike Whitney Jr, DO 05/12/24 162 Signed By: 05/12/24 162 [facility]01-28-2025 Evaluation note* Diagnosis Onset Date Resolution Status Admit Date Family history of osteoporosis acute April 29, 2024 12:56pm History of hysterectomy acute J anuary 2024 12:56pm Kidney anomaly, congenital acute April 29, 2024 12:56pm Screening for osteoporosis acute April 29, 2024 12:56pm Sprain of right ankle acute Apr 12:56pm [facility] Work Phone: 1(160) 255-245011-01-2024 Evaluation note* Diagnosis Onset Date Resolution Status [...] Apr 12:56pm Wellness examination acute 2024 12:56pm [facility] Work Phone: 1(612) 904-449503-20-2024 Hospital Discharge instructionsAmbulatory Orders* Referral to Orthopedic Surgery Time Frame: 06/20/23, Location: None [facility] Work Phone: 1(918) 967-850110-10-2022 NotePROCEDURE: XR ANKLE RT MIN 3 VIEWS HISTORY: Contusion of right ankle ; acute anterior right ankle pain since injury 16 days ago COMPARISON: XR ankle right 12/31/2021 FINDINGS: BONES:No fracture, acute abnormality, or significant arthropathy. SOFT TISSUES:No visible soft tissue swelling. EFFUSION:None visible. OTHER: Negative. IMPRESSION: 1. Normal examination. Electronically authenticated by: LIZANDRO DELACRUZ Date: 2022-01-09 16:[facility] NotePROCEDURE: XR FEMUR LT COMPARISON: None. HISTORY: Unspecified fall FINDINGS: BONES:No fracture, acute abnormality, or significant arthropathy. SOFT TISSUES:Negative. No visible soft tissue swelling. EFFUSION:None visible. OTHER: Negative. IMPRESSION: No acute abnormality Electronically authenticated by: TEODORO WHITLEY Date: 2021-04-07 09:14[facility] note No data available for this section [facility] Diagnosis Onset Date Resolution Status Anxiety acute Asthma acute Depression acute Irregular heart beat acute Maxillary sinusitis acute Scoliosis acute Trigger finger of right hand acute [facility] Work Phone: Evaluation note* Diagnosis Onset Date Resolution Status Anxiety acute Asthma acute Depression acute Irregular heart beat acute Maxillary sinusitis acute Scoliosis acute Trigger finger of right hand acute Congenital heart defect acut e Irregular heart beat acute Scoliosis acute [facility] Work Phone: Evaluation note* Diagnosis Onset Date Resolution Status Congenital heart defect acut e Deformity of right lower extremity acute Irregular heart beat acute Scoliosis acute Stress headaches acute Trigger finger of right hand acute Rash acute [facility] Work Phone: Evaluation note* Diagnosis Onset Date Resolution Status Anxiety acute Chronic lower back pain acut e Deformity of right lower extremity acute Depression acute GERD (gastroesophageal reflux disease) acute Stress headaches acute [facility] Work Phone: Evaluation note* Diagnosis [...] Stress headaches acute August 04, 2024 1:00pm [facility] Work Phone: Evaluation note* Diagnosis Other seborrheic dermatitis- Primary [facility] No data available for this section [facility] instructionsAmb[facility] Orders* Referral to Pain Management Time Frame: 02/01/24, Location: None [facility] Work Phone: Hospital Discharge instructionsAmbulatory Orders* Referral to Podiatry Time Frame: 04/29/24, Location: None Selected [facility] Work Phone: Progress note No data available for this section [facility] (narrative)No reason for referral information [facility]St[facility] Work Phone: Summary Purpose Family History No [...] DATE CREATED AUTHOR AUTHOR'S ORGANIZ ATION 08/16/2023 [facility] DATE CREATED AUTHOR AUTHOR'S ORGANIZ ATION 10/13/2024 [facility] EPIC DATE CREATED AUTHOR AUTHOR'S ORGANIZ ATION 11/01/2024 [facility] DATE CREATED AUTHOR AUTHOR'S ORGANIZ ATION 01/05/2025 [facility] Care Teams (unrecognized sec tion and content) Team Status: Active Member Role Status Dates Penelope Garcia APRN CLINICAL REHAB SPECIALIST-C Primary Care Provider Active Team Status: Inactive Member Role Status Dates Penelope Garcia APRN CLINICAL REHAB SPECIALIST-C Primary Care Provider, Attending Provider Active Start: June 20, 2023 End: June 20, 2023 Team Status: Inactive Member Role Status Dates Penelope Garcia APRN CLINICAL REHAB SPECIALIST-C Primary Care Provider, Attending Provider Active Start: August 06, 2023 End: August 06, 2023 Team Status: Inactive Member Role Status Dates Penelope Garcia APRN CLINICAL REHAB SPECIALIST-C Primary Care Provider, Attending Provider Active Start: September 27, 2023 End: September 27, 2023 Team Status: Inactive Member Role Status Dates Penelope Garcia APRN CLINICAL REHAB SPECIALIST-C Primary Care Provider, Attending Provider Active Start: February 01, 2024 End: February 01, 2024 Team Status: Active Member Role Status Dates Penelope Garcia APRN CLINICAL REHAB SPECIALIST-C Primary Care Provider Active Start: April Khadijah Corbin CMA Attending Provider Active Start: April 22, 2024 Team Status: Inactive Member Role Status Dates Penelope Garcia APRN CLINICAL REHAB SPECIALIST-C Primary Care Provider, Attending Provider Active Start: April 29, 2024 End: April 29, 2024 Team Status: Active Member Role Status Dates Penelope Garcia APRN CLINICAL REHAB SPECIALIST-C Primary Care Provider, Attending Provider Active Start: April 30, 2024 Team Status: Inactive Member Role Status Dates Penelope Garcia APRN CLINICAL REHAB SPECIALIST-C Primary Care Provider, Attending Provider Active Start: May 12, 2024 End: May 12, 2024 Team Status: Inactive Member Role Status Dates Penelope Garcia APRN CLINICAL REHAB SPECIALIST-C Primary Care Provider, Attending Provider Active Start: August 04, 2024 End: August 04, 2024 Team Status: Inactive Member Role Status Dates Penelope Garcia APRN CLINICAL REHAB SPECIALIST-C Primary Care Provider, Attending Provider Active Start: September 10, 2024 End: September 10, 2024 Training Coordinator Relationship Specialty Start Date End Date Penelope Garcia NP [address] [place] [address] PCP - General Family Medicine 10/03/23 Ce Reyes MD [address] [place] [id number] PCP - [facility] 04/02/24 Training Coordinator Relationship Specialty Start Date End Date Penelope Garcia NP [address] [place] [address] PCP - General Family [facility] 10/03/23 Ce Reyse MD [address] [place] [address] [address] [place] [address] PCP [facility] 04/02/24 Team Status: Inactive Member Role Status Dates Penelope GantANTOINE ansari CLINICAL REHAB SPECIALIST-C Primary Care Provider Active Start: August 04, 2024 End: August 04, 2024 Penelope Gantcoty LEAD DEVELOPER CLINICAL REHAB SPECIALIST-C Attending Provider Act deo Start: August 04, 2024 End: August 04, 2024 Team Status: Inactive Member Role Status Dates Penelope ANTOINE Garcia CLINICAL REHAB SPECIALIST-C Primary Care Provider Active Start: September 10, 2024 End: September 10, 2024 Penelope ANTOINE Garcia CLINICAL REHAB SPECIALIST-C Attending Provider Act deo Start: September 10, 2024 End: September 10, 2024 Team Status: Inactive Member Role Status Dates Penelope ANTOINE Garcia CLINICAL REHAB SPECIALIST-C Primary Care Provider Active Start: October 28, 2024 End: October 28, 2024 Penelope ANTOINE Garcia CLINICAL REHAB SPECIALIST-C Attending Provider Act deo Start: October 28, 2024 End: October 28, 2024 Team Status: Inactive Member Role Status Dates Penelope Gantcoty LEAD DEVELOPER CLINICAL REHAB SPECIALIST-C Primary Care Provider Active Start: November 28, 2024 End: November 28, 2024 Penelope GantJASSI ansariN CLINICAL REHAB SPECIALIST-C Attending Provider Act deo Start: November 28, [...] BE BASED ON THE PRIMARY CLINICAL RECORDS. [facility]. provides no warranty or guarantee of the accuracy or completeness of information in this document.
[2025-01-12 08:17] VITALS: BP 133/89; PULSE 65; TEMP 36.4; O2SAT 100
[2025-01-12 08:51] VITALS: BP 123/94; PULSE 72; PULSE 83; O2SAT 98; O2SAT 99
[2025-01-12 08:52] VITALS: BP 128/96
[2025-01-12] MEDS: BUPIVACAINE HCL 0.25% PF 25 MG/10 ML VIAL INJ (08:52)
[2025-01-12] MEDS: LIDOCAINE HCL 2% 400 MG/20 ML MDV 3 ML INJ (08:53)
[2025-01-12] MEDS: IOHEXOL 240 MG/ML - 10 ML VIAL 24 MG INJ (08:53)
[2025-01-12] MEDS: DEXAMETHASONE SOD PHOS 10 MG/ML VIAL INJ (08:53)
--- NOTE | 2025-01-12 08:55 | W.PM.PROCNOT ---
Date of procedure: 01/12/25 Pre-op diagnosis: M54.12 Post-op diagnosis: same as pre-op Procedure: Procedure: Bilateral C5-6 transforaminal epidural steroid injection Medications: Bupivacaine 0.25% 1cc, lidocaine 2% 1cc, dexamethasone 10mg The patient was seen and examined in the preoperative holding area.? Informed consent was obtained and placed on the chart.? Patient was brought to the medical procedure unit and placed in the prone position where a timeout was completed verifying the correct patient, procedure site, position, and planned special equipment using sterile aseptic technique.? Under direct fluoroscopic visualization a 25-gauge Quincke tipped spinal needle was advanced at level left C5-6 to the designated neural foramen where contrast dye was injected to show adequate spread.? There was no evidence of vascular or adverse uptake.? Epidural spread was appreciated.? The above-mentioned injectate was then placed in a 1.5 mL aliquot preceded by negative aspiration.? The needle was removed. The same procedure, at the same level, was completed on the opposite side. ? Patient was taken to the postprocedural recovery area and monitored for an appropriate length of time before found suitable for discharge in the accompaniment of a responsible adult. Anesthesia: Local Surgeon: Katie Lipscomb Pathology: none sent Condition: stable Disposition: no change
== END 2025-01-12 08:58 | disposition home or self-care (01) ==
LOC: SURGOUT 07:57
PROVIDERS: Family Provider Physician Assistant; PCP Nurse Practitioner Family; Visit Provider Anesthesiology
DX: M54.12 Radiculopathy, cervical region (principal)
CPT/HCPCS: 64479; J0665; J1100; Q9966

== ENCOUNTER 2025-01-21 13:34 | Outpatient (OUT) | payer OTHER, SELFPAY ==
--- OUTSIDE RECORDS SUMMARY | 2025-01-21 13:41 | XMS_ITS | CCD ---
Author Organization [facility] Inform ion [facility] Care Team Providers Care Vice Admiral Name Role Phone KOLBY KIRK Admitting Unavailable KOLBY KIRK Attending Unavailable MISC, DR PETERSON Primary Care Unavailable KOLBY KIRK Consulting Unavailable DALJIT RO Consulting Unavailable MISC, DR PETERSON Primary Care Unavailable KATSEBASTIAN, HENNY West Admitting Unavailable KATKO, HENNY West [...] Unavailable HEMMER, DR CASH Gomes Consulting Unavailable ANJELICA MARTINS Primary Care Physician PENELOPE GARCIA Attending Unavailab le ROHRBACHERPENELOPE Admitting Unavailab le Rohrbacher ANTOINE, Penelope Primary Care Provider Penelope Garcia APRN Attending Provider Jose SCHULTZ, Penelope Primary Care Provider Penelope Garcia APRN Attending Provider [phone] Jose PROFILER, Penelope Chao Primary Care Provider Ce Reyes MD Unavailable ESTUARDOKALANI SAIGE Jeremie Attending Unavailable Rohrbacher CHILD PSYCHIATRIST, Penelope Primary Care Provider Rohrbacher CHILD PSYCHIATRIST, Penelope Attending Provider Rohrbacher CHILD PSYCHIATRIST, Penelope Primary Care Provider Rohrbacher CHILD PSYCHIATRIST, Penelope Attending Provider Rohrbacher, Penelope Admitting Unavailable Rohrbacher, Penelope Attending Unavailable Rohrbacher, Penelope Primary Care Unavailable Rohrbacher, Penelope Attending Unavailable Rohrbacher, Penelope Primary Care Unavailable Rohrbacher, Penelope Admitting Unavailable Giedraitis MD, Andrius Vytautas Attending Unavailable Giedraitis MD, Andrius Vytautas Attending Unavailable Giedraitis MD, Andrius Vytautas Attending Unavailable Giedraitis MD, Andrius Vytautas Attending Unavailable Giedraitis MD, Andrius Vytautas Attending Unavailable Giedraitis MD, Andrius Vytautas Attending Unavailable Giedraitis MD, Andrius Vytautas Attending Unavailable Giedraitis MD, Andrius Vytautas Attending Unavailable Allergies Allergy ClassificationReported Allergen(s)Allergy TypeDate of OnsetReaction(s) Facility (1 source)cefdinirDrug Ruhpsvv32-18-7986[facility] (11 sources)PenicillinsDrug allergy (disorder)60-12-3056LcxwzMnoKindred [facility] (11 sources)predniSONEDrug Qlysmli73-82-4330DyieeypgeQrd [facility] Repository (1 source)traMADolDrug Fszvtik96-11-9613PuoKindred [facility] (1 source)Pertussis Immune GlobulinDrug allergy (disorder)73-79-2398Izf [facility] Repository (16 sources)spinach allergenic extract; Translations: [Spinach (substance)]Drug Ugjqrxw86-17-4241Mokmfy constriction (finding), AnaphylaxisTrinity Health System West Campus (11 sources)bee venom protein (honey bee); Translations: [bee venom protein (honey bee)]Allergy to jehjnixgz14-30-8479JkxgsolcfltKmwtvzwhj [facility] (11 sources)diphtheria,pertussis (acellular),te; Translations: [diphtheria,pertussis (acellular),te]Allergy to cbettmhum84-96-9343[facility]qgzhfKn[facility] (2 sources)Bee/Wasp/Ant venom; Translations: [Bee Stings]Drug allergySelect [facility] (2 sources)Penicillin; Translations: [penicillin]Drug AllergySelect Medical Specialty [facility] (2 sources)Pertussis Vaccine; Translations: [Whooping-cough vaccine]Drug Allergy Airway constriction (finding)[facility] (2 sources)Sodium Bicarbonate; Translations: [Baking soda]Drug AllergyRed color (finding)[facility] (3 sources)buPROPionDrug Nvckgyx87-16-4754ChflmXLFP [facility] Work Phone: (3 sources)FLUoxetineDrug Npvzzpv42-58-7537WSLI [facility] (3 sources)Honey bee venomAllergy to qwysqewhz82-81-1284OketnjrfjrhZJZO Healthcare Work Phone: (3 sources)Penicillin GDrug Uhghkcv52-03-8601WSAC [facility] (3 sources)PrednisoneAllergy to -39-3224FJLV [facility] (3 sources)traMADolDrug Gcshvyp23-56-8087JheqejqXMMC Healthcare (3 sources)Pertussis VaccinesDrug Zmnochn98-42-4904BsrrqxhCQND Healthcare (1 source)PenicillinsDrug allergy (disorder)44-02-6279QksexmadaTrinity Health System West Campus Repository (1 source)predniSONEDrug Lhhwgza13-98-7140UjhftdvggTrinity Health System [facility] Campus Repository Medications Current Medications MedicationDrug Class(es)DatesSig (Normalized)Sig (Original)Acetaminophen / HYDROcodone (1 source)Opioid AgonistStart: 07-25-8882Ffxjvtw 500 mg-5 mg Tab 1 tab(s), Oral, q4hr as needed for pain, 10 tab(s), Refill(s) 0, Take one tab by mouth every four hours as needed for pain Start Date: 06/13/11 Status: OrderedAlbuterol Sulfate 90 mcg/actuation HFA aerosol inhaler (4 sources)Start: 85-39-5585xscj 1 puff(s) by inhalation every six hours as needed for wheezingAlbuterol Sulfate 90 mcg/actuation HFA aerosol inhaler Active 2 PUFF INHALATION Every 6 hours as needed for shortness of breath or wheezing 6.7 January 30, 2024 4:08pmStart: 01-04-5564sicv 1 puff(s) by inhalation every six hours as needed for wheezingAlbuterol Sulfate 90 mcg/actuation HFA aerosol inhaler Active 2 PUFF INHALATION Every 6 hours as needed for shortness of breath or wheezing 6.7 January 30, 2024 3:08pmbaclofen 10 mg oral tablet (2 sources)gamma-Aminobutyric Acid-ergic AgonistStart: 67-29-3835talo 1 tablet by mouth three times dailyciclopirox 10 mg/ml medicated shampoo (20 sources)Start: 16-95-9224Ntbptfvbal 1 % shampoo Indications: Other seborrheic dermatitis Use as shampoo 2-3x/week, allow to sit on scalp for 5 minutes before rinsing off 120 mL 10/09/2024 ActiveStart: 10-09-2024 ciclopirox (Loprox) 0.77 % cream Indications: Other seborrheic dermatitis Apply (0.7g) to face oncedaily 30 g 10/09/2024 ActiveStart: 92-06-9090Bfsuswxlpt 1 % shampoo Indications: Other seborrheic dermatitis Use as shampoo 2-3x/week, allow to sit on scalp for 5 minutes before rinsing off 120 mL 10/09/2024 ActiveStart: 29-54-4657twbrnwqtmo (Loprox) 0.77 % cream Indications: Other seborrheic dermatitis Apply (0.7g) to face oncedaily 30 g 10/09/2024 Active Start: 10-09-2023 End: 07-22-3723Cqfoypemka 1 % shampoo Indications: Other seborrheic dermatitis Use as shampoo 2-3x/week, allow to sit on scalp for 5 minutes before rinsing off 120 mL 10/09/2023 10/09/2024 DiscontinuedStart: 06-20-2023 End: 34-24-7047Soyoeaogwt 1 % shampoo Discontinued TOPICAL June 20, 2023 12:00am February 01, 2024 9:32amStart: 06-20-2023 End: 63-65-9087Juvyzltsyb 0.77 % cream Discontinued 1 APPLIC TOPICAL Daily June 20, 2023 12:00am February 01, 2024 9:32amStart: 06-20-2023 End: 02-72-4509Vegrwyxpux Discontinued TOPICAL June 20, 2023 12:00am February 01, 2024 9:39ghpoa405605 0.3 ml EPINEPHrine 1 mg/ml auto-injector (14 sources)alpha-Adrenergic Agonist, beta-Adrenergic Agonist, Catecholamine Start: 06-20-2023 End: 82-37-0072Nbypo: 95-80-2592GQHIVAGkwvh (Epipen) 0.3 MG/0.3ML injection syringe Indications: Allergic reaction to bee sting Inject 0.3 mL (0.3 mg) as directed Daily as needed for anaphylaxis (Must be seen in ER if medication used) 2 each 2 06/06/2023 Activefluticasone / salmeterol (1 source)Corticosteroid, beta2-Adrenergic AgonistStart: 73-13-7235paec 1 puff(s) by inhalation once dailyAdvair 250 mcg-50 mcg Powder 1 puff(s), Inhalation, Daily, Refill(s) 0 Start Date: 12/07/09 Status: Orderedibuprofen 800 mg oral tablet (20 sources)Nonsteroidal Anti-inflammatory DrugStart: 12-25-2023 End: 29-46-0587hwrg 1 tablet by mouth every eight hours as needed for painStart: 06-20-2023 End: 65-81-5014jehg 1 tablet by mouth every six hours as neededIbuprofen 800 mg tablet Discontinued 800 MG PO Every 6 hours as needed June 20, 2023 12:00am December 25, 2023 11:24amStart: 11-07-6354cceb 1 tablet by mouth three times daily as needed for painibuprofen 800 MG tablet Take 800 mg by mouth 3 (three) times a day as needed for mild pain or moderate pain. 01/05/2022 ActiveSingulair (1 source)Leukotriene Receptor AntagonistStart: 71-86-3764Wqiwctfmb Oral, Daily, Refills(s) 0 Start Date: 12/07/09 Status: Orderednaproxen 500 mg oral tablet (2 sources)Nonsteroidal Anti-inflammatory DrugStart: 39-86-7394qssy 1 tablet by mouth twice daily as needed for painNaprosyn 500 mg Tab 500 mg = 1 tab(s), Oral, BID, PRN for pain, # 20 tab(s), Refills(s) 0 Start Date: 06/22/15 Status: Ordered ProAir HFA 90 mcg/inh inhalation aerosol (1 source)Start: 72-93-5044lbpq 2 puff(s) by inhalation four times dailyProAir HFA 90 mcg/inh inhalation aerosol 2 puff(s), Inhalation, QID, Refill(s) 0 Start Date: 12/07/09Status: Ordered Completed/Discontinued Medications MedicationDrug Class(es)DatesSig (Normalized)Sig (Original)[id number] 200 actuat albuterol 0.09 mg/actuat metered dose inhaler (20 sources)beta2-Adrenergic AgonistStart: 02-27-2033flve 1 puff(s) by inhalation every six hoursAlbuterol Sulfate Active 2 PUFF INHALATION Every 6 hours 6.7 January 30, 2024 4:08pmStart: 58-10-5107fcrb 2.5 mg by inhalation every four to six hours as needed for wheezingStart: 06-20-2023 End: 64-82-5169ztbu 1 puff(s) by inhalation every six hours as needed for wheezingAlbuterol Sulfate 90 mcg/actuation HFA aerosol inhaler Discontinued 2 PUFF INHALATION Every 6 hoursas needed for shortness of breath or wheezing 6.7 January 30, 2024 4:08pm October 27, 2024 7:46amalbuterol HFA (Ventolin HFA) 90 mcg/act inhaler every 6 (six) hours. ActiveARIPiprazole 2 mg oral tablet (20 sources)Atypical AntipsychoticStart: 06-20-2023 End: 79-61-6408nqca 1 tablet by mouth once dailyAripiprazole 2 mg tablet Discontinued 2 MG PO Daily 90 February 01, 2024 9:44am August 04, 2024 1:31pm diclofenac sodium 0.01 mg/mg topical gel (13 sources)Nonsteroidal Anti-inflammatory DrugStart: 06-20-2023 End: 70-01-1145Zxogzgfygq Sodium 1 % gel Discontinued TOPICAL June 20, 2023 12:00am February 01, 2024 9:32amStart: 06-20-2023 End: 37-97-0223Jktkewpaiy Sodium 1 % gel Discontinued TOPICAL June 20, 2023 12:00am February 01, 2024 9:32amStart: 06-20-2023 End: 58-13-1411Ksccqjbpau Sodium 1 % gel Discontinued TOPICAL June 19, 2023 11:00pm February 01, 2024 8:32amStart: 06-20-2023 End: 26-81-6361Mwloxfsgsv Sodium Discontinued TOPICAL June 20, 2023 12:00am February 01, 2024 9:32amStart: 01-74-0921Akvogudfms Sodium Active TOPICAL June 20, 2023 12:00amStart: 64-25-7695rpssboehgz sodium 1 % gel Indications: Contracture of joint of right hand Apply 2 g topically in the morning and 2 g at noon and 2 g in the evening and 2 g before bedtime. 50 g 2 06/06/2023 Active doxycycline monohydrate 100 mg oral tablet (10 sources)Tetracycline-class DrugStart: 06-20-2023 End: 48-56-4715qbcr 1 tablet by mouth twice dailyDoxycycline Monohydrate 100 mg tablet Discontinued 100 MG PO Twice daily 19 01June 20, 2023 12:00am February 01, 2024 9:32amfamotidine 20 mg oral tablet (18 sources)Histamine-2 Receptor AntagonistStart: 02-01-2024 End: 48-26-9163ucle 1 tablet by mouth once dailyFamotidine 20 mg tablet Discontinued 20 MG PO Daily February 01, 2024 9:45am August 04, 2024 1:31pm methylPREDNISolone 4 mg oral tablet (8 sources)CorticosteroidStart: 09-27-2023 End: 11-94-2894katu 1 tablet by mouth onceMethylprednisolone (Medrol (Dominick)) 4 mg tablets,dose pack Discontinued 0 PO per package directions 20 09September 27, 2023 12:00am February 01, 2024 9:33am PO PER PKG DIRmupirocin 0.02 mg/mg topical ointment (10 sources)RNA Synthetase Inhibitor AntibacterialStart: 06-20-2023 End: 13-92-2615Ffmaktysd 2 % ointment Discontinued 1 APPLIC TOPICAL Twice daily 21 10June 20, 2023 12:00am February 01, 2024 9:33am Problems Active Problems Problem ClassificationProblemDateDocumented DateEpisodic/ChronicAllergic reactions (1 source)Allergy to honey bee venom; Translations: [Bee allergy status] 96-60-1735DzoddvwlOlllenb disorders (17 sources)Anxiety; Translations: [Anxiety disorder, unspecified]06-20-2023 ChronicAsthma (15 sources)Unspecified asthma, uncomplicated; Translations: [Asthma]Onset: 108793-52-8286YvijpzuHsleuqb and circulatory congenital anomalies (12 sources)Congenital heart disease; 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, unspecified]Onset: 114618-69-6150NnecnyhEtxwouh dysrhythmias (14 sources)Irregular heart beat; Translations: [Cardiac arrhythmia, unspecified]40-27-9806XdwzctbBivxufn on above:has pin hole in heartConduction disorders (1 source)Conduction disorder of the -63-8587EinzqynFxjicycswh and other anemia (1 source)Fctoaz95-00-0899PqdaaassAqyyemkea of lipid metabolism (3 sources)Raised low density lipoprotein cholesterol; Translations: [Pure hypercholesterolemia, unspecified]Onset: 506691-67-0855IedflofD Codes: Struck by; against (1 source)Striking against or struck by other objects, initial encounter; Translations: [STRIKING AGNST/STRUCK OTH OBJ INIT]Onset: 44-76-6685OejcmhwaKynmw or threatened labor (1 source)Premature jdxol24-65-9893AjhtyubnKxxtyudjew disorders (12 sources)Gastroesophageal reflux disease; Translations: [Gastro-esophageal reflux disease without esophagitis]61-51-4723PjcsgvuUwhkjeewhydxg congenital anomalies (12 sources)Congenital anomaly of the kidney; 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, unspecified]Onset: 731359-11-9873BycmcnxZrwqy valve disorders (1 source)Heart onimii92-29-1535RslirmkkOsdpkeuvxraku mental health disorders (14 sources)Psychogenic headache; 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]71-86-2574FltbceyZhnp disorders (20 sources)Depressive disorder; Translations: [Depression]Onset: 11-07-2022 01-92-1812VknjdgvUvfktqplvxumgj (15 sources)Unspecified osteoarthritis, unspecified site; Translations: [Arthritis]Onset: 311668-62-7056JqkfoeeRdarxxa on above:Right wrist/arm Other acquired deformities (5 sources)Scoliosis, unspecified; Translations: [Scoliosis [and kyphoscoliosis], idiopathic]Onset: 329386-99-3422MhamvraUbqso acquired deformities (10 sources)Scoliosis deformity of spine; Translations: [Scoliosis, unspecified] 11-08-3768PsoorbgRnteu acquired deformities (9 sources)Deformity of lower limb; Translations: [Unspecified acquired deformity of right thigh]29-62-1437JcwrkhuuNercc acquired deformities (5 sources)Unspecified acquired deformity of right thigh; Translations: [Other acquired deformity of other parts of limb]70-64-5459TkbrjedtTjopz bone disease and musculoskeletal deformities (1 source)Idiopathic qhhhdsdav67-86-0568NzutolrOyorb bone disease and musculoskeletal deformities (3 sources)Idiopathic scoliosis of thoracic and lumbar spine; Translations: [Other idiopathic scoliosis, thoracolumbar region]Onset: ChronicOther congenital anomalies (1 source)Congenital postural junzjyxyf80-56-4803LigodtfSogpk congenital anomalies (3 sources)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; Translations: [Congenital malformation of posteriorsegment of eye, unspecified]Onset: 583382-42-1468JjzmlakPyyrr connective tissue disease (8 sources)Triggering of digit; Translations: [Trigger finger, unspecified finger]78-94-9112EivkwmqlNfigy connective tissue disease (3 sources)Trigger finger, unspecified finger; Translations: [Trigger finger (acquired)]84-77-7994CzbyekuuPsbhz connective tissue disease (2 sources)Trigger finger of right hand; Translations: [Trigger finger, unspecified finger]90-34-4834BbnmqaowVxsst inflammatory condition of skin (2 sources)Seborrheic dermatitis; Translations: [Other seborrheic dermatitis] 12-73-4756TpuxsrezWgxsz nervous system disorders (11 sources)Carpal tunnel syndrome; Translations: [Carpal tunnel syndrome, unspecified upper limb]53-26-7136VdrpcidXgkhm nervous system disorders (3 sources)Carpal tunnel syndrome of left wrist; Translations: [Carpal tunnel syndrome, left upper limb]Onset: 304810-49-8395UsebixzFyher non-traumatic joint disorders (3 sources)Derangement of right shoulder joint; Translations: [Other specific joint derangements of right shoulder, not elsewhere classified]Onset: 09-22-2022 12-26-4085IfrrfjiCayjg non-traumatic joint disorders (3 sources)Pain in right ankle and joints of right foot; Translations: [PAIN IN RIGHT ANKLE]Onset: 61-67-8041AxfqtkzgMgrye screening for suspected conditions (not mental disorders or infectious disease) (8 sources)Patient encounter status; Translations: [Encounter for screening for osteoporosis]34-91-2804WcsvdvsxBarjb skin disorders (8 sources)Eruption; Translations: [Rash and other nonspecific skin eruption] 16-53-6791TtxbqdhjMwhhe skin disorders (1 source)Rash and other nonspecific skin eruption; Translations: [Rash and other nonspecific skin eruption]82-37-5738FsaglywyEuqtx skin disorders (10 sources)Ingrowing great toenail; Translations: [Ingrowing nail]EpisodicOther skin disorders (2 sources)Disorder of right lower extremity; Translations: [Localized swelling, mass and lump, right lower limb]63-74-6500BeylknutQctcw upper respiratory infections (12 sources)Maxillary sinusitis; Translations: [Chronic maxillary sinusitis] 84-37-1177EjkjwugVwmjcxmtr by nonmedicinal substances (4 sources)Allergic reaction to bee sting; Translations: [Toxic effect of venom of bees, accidental (unintentional), initial encounter]Onset: 09-22-2022 33-97-0442ZdfgzbllUjtjzpye codes; unclassified (6 sources)Family history of osteoporosis; Translations: [Family history of osteoporosis]52-51-9584XkcglmviNsvajroj codes; unclassified (2 sources)Family history of osteoporosis; Translations: [Family history of osteoporosis]90-99-0653XnduxgghRsjwywwu codes; unclassified (2 sources)Acquired absence of both cervix and uterus; Translations: [Acquired absence of both cervix and uterus]22-75-2310NyinbappEtccqneewrs; intervertebral disc disorders; other back problems (4 sources)Lumbar spondylosis; Translations: [Spondylosis without myelopathy or radiculopathy, lumbar region]42-00-6931PqxibinUfnjlpjqmco; intervertebral disc disorders; other back problems (19 sources)Chronic low back pain; Translations: [Chronic low back pain]Onset: 737883-53-2734PlkkteppIwukmcp and strains (8 sources)Sprain of right ankle; Translations: [Sprain of unspecified ligament of right ankle, initial encounter]34-25-2511WrjexgacHyvopcnqbsq injury; contusion (2 sources)Contusion of right ankle, initial encounter; Translations: [Contusion of left lower leg, initial encounter]Onset: 33-94-0545EvuqmzpwJgvwvdiuczuk (1 source)Streptococcus agalactiae (organism)09-13-9144Atjqdveonqeb (1 source)L60.0 - Ingrowing nail Past or Other Problems Problem ClassificationProblemDateDocumented DateEpisodic/ChronicDiseases of mouth; excluding dental (7 sources)Other diseases of salivary glands; Translations: [Mass of parotid gland]Onset: 09-13-2021 Resolved: 39-88-9925KadtoirwK Codes: Fall (1 source)Unspecified fall, initial encounter; Translations: [UNSPECIFIED FALL INITIAL ENCOUNTER]Onset: 64-79-5261KsauiwqjXarkntkwxdmxm (3 sources)Lymphadenopathy; Translations: [Generalized enlarged lymph nodes] Onset: 09-22-2022 Resolved: 215669-20-6319LmnuurtkQrnlv connective tissue disease (3 sources)Pain in left leg; Translations: [PAIN IN LEFT LEG]Onset: 04-07-2021 EpisodicOther connective tissue disease (3 sources)Pain in limb; Translations: [Pain in unspecified limb]Onset: 09-22-2022 Resolved: 147603-38-8360MerswxzkXupal injuries and conditions due to external causes (3 sources)H/O: injury; Translations: [Personal history of other (healed) physical injury and trauma]Onset: 513095-90-9398PehbhcspBbekw nervous system disorders (3 sources)Skin sensation disturbance; Translations: [Unspecified disturbances of skin sensation]Onset: 507914-82-0796KrekjaneTdisa nervous system disorders (3 sources)Numbness of hand; Translations: [Anesthesia of skin]Onset: 09-22-2022 74-47-3427FfwwoghlVxrvd non-traumatic joint disorders (4 sources)Pain in left hip; Translations: [PAIN IN LEFT HIP]Onset: 04-18-2021 EpisodicResidual codes; unclassified (3 sources)Acquired absence of cervix and uterus; Translations: [Acquired absence of both cervix and uterus]Onset: 968336-68-4104HenuanakMmfrdigl codes; unclassified (3 sources)Difficulty sleeping ; Translations: [Sleep disorder, unspecified] Onset: 118414-38-9676OedlqwqcLzfpyrcs codes; unclassified (3 sources)Impairment; Translations: [Other general symptoms and signs]Onset: 667034-86-7266SvinoktuUqjdweehe and history of mental health and substance abuse codes (3 sources)Ex-smoker; Translations: [Personal history of nicotine dependence] Onset: 463175-51-7438JgfdslkhAzgdniads-aklbxjv disorders (4 sources)Nicotine dependence, cigarettes, uncomplicated; Translations: [Tobacco dependence syndrome]Onset: 06-29-2017 Resolved: 245670-30-3671Lwqicdj Results Test NameValueInterpretationReference RangeFacilityECH echo transthoracicon 49-82-8356MGI echo transthoracicDILEY RIDGE [place] [address] Echocardiogram Signed Patient: Yanci Loco MR#: [id number] 612 : 1985 Acct:[id number] Age/Sex: 39 / F ADM Date: 11/28/24 Loc: Room: Type: [facility] Attending Dr: Penelope Garcia CHILD PSYCHIATRIST, PROFILER-C Ordering Provider: Penelope Garcia APRN, CNP Date of Service: 11/28/24 [facility] transthoracic: Q24.9 - Congenital malformation of [...] LV V1 VTI: 18.8 cm Transcribed By: MYNOR Performed At: 11/28/24 1456 Signed By: Morenita Hopson MD 11/28/24 2309[facility] GroupUS renal RTon 07-79-4472PO renal RTDILEY RIDGE [place] [address] Ultrasound Report Signed Patient: Yanci Loco MR#: [id number] 612 : 1985 Acct:[id number] Age/Sex: 38 / F ADM Date: 05/12/24 Loc: Room: Type: [facility] Attending Dr: Penelope Garcia APRN, NP-C [...] Whitney Jr., D.OPer05/12/2024 4:24 PM Dictation Location: [place] [address] Tech: Dana Pack Transcribed By: TANA 05/12/24 1624 Dictated By: Mike Whitney Jr, DO 05/12/24 1623 Signed By: 05/12/24 1624NoBetsy Johnson [facility] Hospital Physician GroupBasophils Auto (Bld) [#/Vol]on 84-45-1185Hxjlbdltk (Bld) [#/Vol]Automated basophil count0.0-0.1FPremier Health Miami Valley HospitalBasophils/100 WBC Auto (Bld)on 63-80-6658Ikpctoxze/100 WBC (Bld)Automated basophil %0.2-2.0[facility] CampusCholesterol in LDL Calc [Mass/Vol]on 27-61-9047Clymduozzhh in LDL [Mass/Vol]Cholesterol in LDL [Mass/volume] in Serum or Plasma by calculationTrinity Health System West CampusComment on above:<100 mg/dl ECPWSHC218-531 mg/dl NEAR OR ABOVE PEFQPKC776- 159 mg/dl BORDERLINE RVLH949-109 mg/dl HIGH>190 mg/dl VERY HIGHCholesterol in VLDL Calc [Mass/Vol]on 03-52-1935Ozouauzoyfc in VLDL [Mass/Vol]Cholesterol in VLDL [Mass/volume] in Serum or Plasma by calculationTrinity Health System West CampusEosinophils/100 WBC Auto (Bld)on 93-92-5663Utgcywegbfp/100 WBC (Bld) Automated eosinophil %0.9-7.0[facility] CampusErythrocyte distribution width Auto (RBC) [Ratio]on 01-46-2203Pejxylpgfam distribution width (RBC) [Ratio]Erythrocyte distribution width [Ratio] by Automated count11.0-15.0 [facility] CampusEstimated glomerular filtration rate (GFR) non- Americanon 18-16-2276AKL/1.73 sq M.predicted among non-blacks MDRD (S/P/Bld) [Vol rate/Area]Estimated glomerular filtration rate (GFR) non->=60 mL/min/1.73m 2FPremier Health Miami Valley HospitalGlobulin Calc (S) [Mass/Vol]on 36-07-0672Nmdbwkkk (S) [Mass/Vol]Serum globulin measurement by calculation (mass/volume)[facility] CampusHematocrit Auto (Bld) [Volume fraction]on 50-06-5561Kblvptgvrp (Bld) [Volume fraction]Hematocrit [Volume Fraction] of Blood by Automated count36.0-48.0[facility] CampusHemoglobin [Mass/volume] in Bloodon 43-13-0103Hionitfudn (Bld) [Mass/Vol] Hemoglobin [Mass/volume] in Blood12.0-16.0[facility] Laboratory - Chemistry and Chemistry - challengeon 01-03-1557Uviubxc [Mass/Vol] 3.6 g/dL3.4-5.0[facility] CampusALP [Catalytic activity/Vol]70 U/J13-785QmwasboobTrinity Health System West CampusALT [Catalytic activity/Vol]28 U/L 14-59[facility] CampusAST [Catalytic activity/Vol]17 U/L15-37 [facility] CampusBilirubin [Mass/Vol]0.3 mg/dL0.2-1.0[facility] CampusCalcium [Mass/Vol]8.6 mg/dL8.5-10.1FPremier Health Miami Valley HospitalChloride [Moles/Vol]104 mmol/M14-530QcbqgtsorTrinity Health System West CampusCholesterol [Mass/Vol]227 mg/dLHigh<=200[facility] Cholesterol in HDL [Mass/Vol]59 mg/yH61-94TveefzrauTrinity Health System West Campus Comment on above:> or =60 mg/dl - LOW CARDIOVASCULAR RISK<40 mg/dl - HIGH CARDIOVASCULAR RISKCO2 [Moles/Vol]26.5 mmol/L21.0-32.0[facility] CampusCreatinine [Mass/Vol]1.02 mg/dL0.55-1.02[facility] GFR/1.73 sq M.predicted MDRD (S/P/Bld) [Vol rate/Area]mL/min/{1.73_m2}>=60 mL/min/1.73m 2FPremier Health Miami Valley HospitalGlucose [Mass/Vol]86 mg/gS57-425 [facility] CampusPotassium [Moles/Vol]3.6 mmol/L3.5-5.1FPremier Health Miami Valley HospitalProtein [Mass/Vol]7.4 g/dL6.4-8.2FCleveland Clinic Lutheran Hospitalodium [Moles/Vol]140 mmol/J705-597SgbbbffotTrinity Health System West CampusTriglyceride [Mass/Vol]165 mg/dLHigh<=150[facility] Urea nitrogen [Mass/Vol]16.0 mg/dL7.0-18.0[facility] CampusUrea nitrogen/Creatinine [Mass ratio]15.7 mg/mgTrinity Health System West Campus Laboratory - Hematology and Cell countson 58-86-6118Mcboxrtm granulocytes/100 WBC (Bld)0.1 %0.0-0.5FPremier Health Miami Valley HospitalLeukocytes [#/volume] corrected for nucleated erythrocytes in Blood by Automated counon 97-28-3896PKV corrected for nucl RBC Auto (Bld) [#/Vol]Leukocytes [#/volume] corrected for nucleated erythrocytes in Blood by Automated coun4.0-11.0[facility] CampusLymphocytes Auto (Bld) [#/Vol]on 08-85-4793Pjvedbmvkbh (Bld) [#/Vol]Lymphocytes [#/volume] in Blood by Automated count1.2-3.8[facility] CampusLymphocytes/100 WBC Auto (Bld)on 04-30-2024 Lymphocytes/100 WBC (Bld)Lymphocytes/100 leukocytes in Blood by Automated count 20.5-60.0[facility] CampusMCH Auto (RBC) [Entitic mass]on 88-62-2483GHQ (RBC) [Entitic mass]MCH [Entitic mass] by Automated count26.7-34.0 [facility] CampusMCHC Auto (RBC) [Mass/Vol]on 79-69-4781BLOV (RBC) [Mass/Vol]MCHC [Mass/volume] by Automated count29.9-35.2FPremier Health Miami Valley HospitalMCV Auto (RBC) [Entitic vol]on 84-68-6072LRW (RBC) [Entitic vol] MCV [Entitic volume] by Automated count81.0-99.0[facility] CampusMonocytes Auto (Bld) [#/Vol]on 90-23-7788Wiabqtgai (Bld) [#/Vol]Automated blood monocyte count0.3-0.8[facility] CampusMonocytes/100 WBC Auto (Bld)on 22-31-2065Xlivogxsy/100 WBC (Bld)Automated monocyte %1.7-12.0 [facility] CampusNeutrophils Auto (Bld) [#/Vol]on 04-30-2024 Neutrophils (Bld) [#/Vol]Neutrophils [#/volume] in Blood by Automated count 1.4-6.5FPremier Health Miami Valley HospitalNeutrophils/100 WBC Auto (Bld)on 60-70-3258Zjbqflupope/100 WBC (Bld)Automated neutrophil %43.0-75.0[facility] CampusNo Panel Informationon 01-24-7580Dajedtccroj # (Auto)0.1 10 3/uL0.0-0.7FPremier Health Miami Valley HospitalImmature Granulocyte # (Auto)0.01 10 3/uL0.00-0.03[facility] CampusPlatelet mean volume Auto (Bld) [Entitic vol]on 63-91-3535Yxlejbxk mean volume (Bld) [Entitic vol]Platelet mean volume [Entitic volume] in Blood by Automated count9.5-13.5FPremier Health Miami Valley HospitalPlatelets Auto (Bld) [#/Vol]on 58-66-8744Lgjtfajwd (Bld) [#/Vol]Platelets [#/volume] in Blood by Automated qhyyd998-211LkhlyfoqiTrinity Health System West CampusRBC Auto (Bld) [#/Vol]on 43-45-7851RDX (Bld) [#/Vol]Erythrocytes [#/volume] in Blood by Automated count4.20-5.40[facility] Serum or plasma albumin/globulin mass ratioon 22-11-6669Eoethqg/Globulin [Mass ratio]Serum or plasma albumin/globulin mass ratioSt. Vincent Hospitalerum or plasma anion gap determinationon 04-96-2782Hzlvg gap [Moles/Vol] Serum or plasma anion gap determinationSt. Vincent Hospitalerum or plasma total cholesterol/high density lipoprotein (HDL) cholesterol mass lucie 82-64-7117Xfkomjtihne.total/Cholesterol in HDL [Mass ratio]Serum or plasma total cholesterol/high density lipoprotein (HDL) cholesterol mass ratTrinity Health System West CampusComment on above:3.3 - 4.4 LOW RISK4.4 - 7.1 AVERAGE RISK7.1 - 11.0 MODERATE RISK>11.0 HIGH RISKXR Spine Scoliosis 1 viewon 52-72-1992ZY Spine Scoliosis 1 viewExam Date/Time: 08/14/2023 16:31 EDT Reason for Exam: [...] Ka,r in mGy = na DAP = naNormalSelect Medical Ohiohealth Rehabilitation HospitalConsent for Treatmenton 08-14-2023 Consent for [id number]#1.00TIFFFayette County Memorial HospitalPhysician Orderon 63-19-6061Qukfjwjgu Order [id number]#1.00TIFFMercy Health St[address] Joseph Warren HospitalXR ANKLE RT MIN 3 VIEWSon 09-31-4703GW ANKLE RT MIN 3 VIEWSEXAM: XR ANKLE RT MIN 3 VIEWS HISTORY: [...] Electronically authenticated by: Santy RO Date: 2021-12-31 22:43NoSumma Health Barberton CampusCT NECK ST W CONon 07-05-3966TU NECK ST W CONEXAMINATION: CT NECK ST W CON HISTORY: Disorder [...] Electronically authenticated by: LIZANDRO DELACRUZ Date: 2021-09-13 17:01[facility] HospitalXR HIP LT 2 3V W PELVISon 69-68-4595VK HIP LT 2 3V W PELVIS EXAM: [...] Electronically authenticated by: SANNA HOOD Date: 2021-04-18 11:23[facility] Vital Signs Date TimeVital SignValuePerforming DxuhupfjnBccwsloc16-29-9572 14:36-0400Body ydenuz815.1 cmDaltonbrinavincenzo Jose KEENEN Work Phone: [phone]15[facility]07-29-2025 14:36-0400 Body mass index (BMI) [Ratio]31.2 kg/w2Fgsgzyil Stalincoty KEENEN Work Phone: [phone]07-29-2025 14:36-0400 Body grkrfikeaia86.6 [degF]Penelope Jose SCHULTZ Work Phone: [phone]03[facility]07-29-2025 14:36-0400 Body ydwnki38.27 kgElsievincenzo Stalincoty KEENEN Work Phone: [phone]07-29-2025 14:36-0400 Diastolic blood lsjpentd95 mm[Hg]Penelopejeff Garcia APRN Work Phone: [phone]07-29-2025 14:36-0400 Heart rate72 /minDaltoneddie Garcia APRN Work Phone: [phone]07-29-2025 14:36-0400 SaO2% (BldA) [Mass fraction]100 %Penelope Garcia APRN Work Phone: [phone]07-29-2025 14:36-0400 Systolic blood vkqgwoky332 mm[Hg]Penelope Garcia APRN Work Phone: [phone]06-11-2025 10:09-0400 Body ipunok518.1 cmTrinity Health System [facility] Campus06-11-2025 10:09-0400Body mass index (BMI) [Ratio]31.8 kg/j4BndamachmTrinity Health System West Campus06-11-2025 10:09-0400Body zkkcwhasgrb82.4 [degF][facility]06-11-2025 10:090400Body esfygh85.63 kgTrinity Health System West Campus06-11-2025 10:0400Diastolic blood afmnrgzn52 mm[Hg][facility] 09-10-2024 10:0400Heart rate79 /minTrinity Health System West Campus 09-10-2024 10:090001LbS5% (BldA) [Mass fraction]100 %[facility]06-11-2025 10:090400Systolic blood npelfmup656 mm[Hg][facility]05-05-2025 13:04-0400Body ktvuym286.1 cmPenelope Jose CHILD PSYCHIATRIST Work Phone: [phone] [place], [place] 3605105-05-2025 13:04-0400 Body mass index (BMI) [Ratio]31.9 kg/z3ZfwxydwiPenelope Gantcoty CHILD PSYCHIATRIST Work Phone: [phone] [place], [place] 3605105-05-2025 13:04-0400 Body ymwgyhdkzgy17.7 [degF]Penelope Jose CHILD PSYCHIATRIST Work Phone: [phone]05-05-2025 13:04-0400 Body grvhhu41.08 kgPenelope Jose CHILD PSYCHIATRIST Work Phone: [phone]05-05-2025 13:04-0400 Heart rate77 /Ant Jose CHILD PSYCHIATRIST Work Phone: [phone]05-05-2025 13:04-0400 SaO2% (BldA) [Mass fraction]99 %Penelope Jose CHILD PSYCHIATRIST Work Phone: [phone] [place], [place] 3605101-28-2025 12:59-0500 Body cvbjso982.1 cmTrinity Health System [facility] Campus01-28-2025 12:59-0500Body zauabdindtv31.4 [degF][facility]01-28-2025 12:59-0500 Diastolic blood zahgxrmu18 mm[Hg][facility]01-28-2025 12:59-0500Heart rate80 /[facility]01-28-2025 12:59-9018EbA0% (BldA) [Mass fraction]99 %[facility] 04-29-2024 12:59-0500Systolic blood gsfowdxg291 mm[Hg][facility]11-01-2024 09:28-0400Body wjyqux040.1 cmTr[facility] 02-01-2024 09:28-0400Body mass index (BMI) [Ratio]30.9 kg/n2IizuiqvrrTrinity Health System West Campus11-01-2024 09:28-0400Body alvnegmwqkq93.8 [degF][facility]11-01-2024 09:28-0400Body .48 kgTrinity Health System [facility] Campus11-01-2024 09:28-0400Diastolic blood hmuykwra00 mm[Hg][facility]11-01-2024 09:28-0400Heart rate70 /[facility]11-01-2024 09:28-9015LvL3% (BldA) [Mass fraction]98 %[facility]11-01-2024 09:28-0400Systolic blood mm[Hg] [facility]06-27-2024 13:58-0400Body imhhwu679.1 cm [facility]06-27-2024 13:58-0400Body mass index (BMI) [Ratio]30.4 kg/a3TwnwaothwTrinity Health System [facility] Campus06-27-2024 13:58-0400Body pfvrxa17.06 kgTrinity Health System [facility] Campus06-27-2024 13:58-0400Diastolic blood plztxfug16 mm[Hg][facility]06-27-2024 13:58-0400 Heart rate70 /[facility]06-27-2024 13:58-0400 Respiratory rate12 /[facility]06-27-2024 13:58-0400 Systolic blood qkmtanzk614 mm[Hg][facility]05-06-2024 15:26-0400Body ntikdo859.1 cmTrinity Health System [facility] Campus05-06-2024 15:26-0400Body mass index (BMI) [Ratio]29.7 kg/d3EgvammtabTrinity Health System [facility] Campus05-06-2024 15:26-0400Body coozlddbhke19.5 [degF][facility]05-06-2024 15:26-0400Body pxxrge10.19 [facility] 08-06-2023 15:26-0400Diastolic blood ooeaikpo94 mm[Hg][facility]05-06-2024 15:26-0400Heart rate71 /[facility] 08-06-2023 15:26-0400Respiratory rate18 /[facility] 08-06-2023 15:26-3572BeX0% (BldA) [Mass fraction]98 %[facility]05-06-2024 15:26-0400Systolic blood rbkvfego362 mm[Hg][facility]03-20-2024 14:49-0400Body qhesjs601.1 cmTrinity Health System [facility] Campus03-20-2024 14:49-0400Body mass index (BMI) [Ratio]29.7 kg/g4DfibrklbcTrinity Health System [facility] Campus03-20-2024 14:49-0400Body rjqwuq09.19 [facility]03-20-2024 14:49-0400Diastolic blood arbywzwl66 mm[Hg] [facility]03-20-2024 14:49-0400Heart rate78 /[facility]03-20-2024 14:49-9833NuN6% (BldA) [Mass fraction]98 % [facility]03-20-2024 14:49-0400Systolic blood mm[Hg][facility] Encounters Encounter DateEncounter TypeCare ProviderFacilityStart: 01-12-2025 End: 29-82-5857sasjwzjjvyPdclrdt Vytautas Giedclayton BENAVIDEZFacility:[place] Start: 11-28-2024 End: 52-93-7645Bngxoif encounter procedurePenelope Garcia APRN RAG COLLECTOR -[facility]ro[facility] Work Phone: Start: 11-28-2024 End: 91-92-2053jamsstkxqiOfpwbdlg Rohrbacher CHILD PSYCHIATRIST Work Phone: [facility] Work Phone: Start: 10-28-2024 End: 67-96-0743pblcerecpsQkkqavho Rohrbacher CHILD PSYCHIATRIST Work Phone: [facility] Work Phone: Start: 10-28-2024 End: 29-84-8925Coyuslt encounter procedurePenelope Garcia APRN [facility] Work Phone: Start: 10-09-2024 End: 80-23-0044Khzwjz flowsheetEmviolette Hernandez MD Work Phone: [facility] DERMStart: 10-09-2024 End: 59-16-0958Axxsrb flowsheetEmviolette Hernandez MD Work Phone: [facility] DERMStart: 10-09-2024 End: 56-17-6364jdjlmawxeyNVMCZ Jeremie ORTIZINot AvailableStart: 10-09-2024 End: 12-76-6695Potzks outpatient visit 15 minutesEmviolette Hernandez MD Work Phone: [facility] DERMComment on above:Other seborrheic dermatitis (Primary Dx)Start: 09-10-2024 End: 19-24-0227sosvehyqtnBznnrrrnjSumma Health Work Phone: Start: 09-10-2024 End: 02-43-7461Etgxkbw encounter procedureAs[facility] Phys[facility] Work Phone: Start: 09-08-2024 End: 84-11-0254hxcjlqekewOtdtfsd Vytautas Giedraitis MDFacility:[facility] Start: 08-04-2024 End: 07-70-0260ybdcrqyoohTaujycjs Rohrbacher CHILD PSYCHIATRIST Work Phone: [facility] Work Phone: Start: 08-04-2024 End: 41-80-6161Sjorwia encounter procedureJennifer Rohrbacher CHILD PSYCHIATRIST Work Phone: [facility] Work Phone: Start: 07-28-2024 End: 36-87-6006ogvmztxsxqAlorkhe Vytautas Giedraitis MDFacility:[facility] Start: 06-23-2024 End: 51-36-9705hamcoriiuwNkrikmj Vytautas Giedraitis MDFacility:[facility] Start: 05-26-2024 End: 36-25-5966tldbclbnvfPzraras Vytautas Giedraitis MDFacility:[facility] [place] Start: 05-12-2024 End: 32-75-9478Mmtqjxq encounter procedureJennifer Rohrbacher CHILD PSYCHIATRIST Work Phone: [facility] [place] Work Phone: Start: 05-12-2024 End: 48-53-1122gszfrxnydeErwiwjaa Rohrbacher CHILD PSYCHIATRIST Work Phone: [facility] Work Phone: Start: 06-86-7022Lmt-patient / Non-visitJennifer Rohrbacher CHILD PSYCHIATRIST Work Phone: [facility] Work Phone: Start: 29-24-1936Lhyqjhp encounter statusSt. Vincent Hospitaltart: 04-29-2024 End: 17-58-3725zasnpkwifkPpqsiitfoSumma Health Work Phone: Start: 04-29-2024 End: 68-62-3453Myhvhmjji for general adult medical examination without abnormal findingsSt. Vincent Hospitaltart: 04-29-2024 End: 29-91-6091Wlnyexl encounter procedureAshe [facility] Hospital Physician [facility] Work Phone: Start: 04-28-2024 End: 36-95-1298uxfzgzacxcFjmynfp Vytautas Giedraitis MDFacility:[facility] [place] Start: 67-44-4031Vbv-patient / Non-visitAshe Memorial Hospital Physician [facility] Work Phone: Start: 03-10-2024 End: 99-23-6363csqadouduyTiuquai Vytautas Giedraitis MDFacility:[facility] Start: 02-11-2024 End: 08-45-2471svlymqkzzuOpejzir Vytautas Giedraitis MDFacility:[facility] Start: 02-01-2024 End: 29-97-9269cxrbfjlbndSoiffwjbuSumma Health Work Phone: Start: 02-01-2024 End: 63-09-6203Jdxunta encounter procedureAs[facility] Hospital Phys[facility] Work Phone: Start: 09-27-2023 End: 62-84-7302twawtfrlmbOwsravtjlSumma Health [facility] Work Phone: Start: 09-27-2023 End: 71-53-6582Gyxxrhd encounter procedureAshe [facility] Hospital Physician [facility] Work Phone: Start: 08-14-2023 End: 18-05-0283gzapbsrpfuLAOKMWDN A ROHRBACHERFacility:FTDESERT VALLEY HOSPITALtart: 08-14-2023 End: 56-69-3830Vewpooi encounter procedurePENELOPE GARCIA [facility] Start: 08-06-2023 End: 70-96-4926oqgmffyvtoXqddxzbzySumma Health [facility] Campus Work Phone: Start: 08-06-2023 End: 25-09-9806Isgazze encounter procedureAs[facility] Hospital [facility] Work Phone: Start: 06-20-2023 End: 59-31-4127cdxecwmcewClwcgpgiuSumma Health [facility] Campus Work Phone: Start: 06-20-2023 End: 94-84-6714Dtzzlcd encounter procedureAshe [facility] Hospital [facility] Work Phone: Start: 01-09-2022 End: 67-46-9112iwstxcidrpQZ CASH Gomes HEMMERFacility:S1Egbwj: 12-31-2021 End: 75-47-2966shfinzxwxxBYAXG PARKERFacility:G1Wrwmg: 09-13-2021 End: 26-31-9288dpdfdxkjkwIM J CARLOS TIMMISFacility:Y7Fpivj: 04-18-2021 End: 11-36-6618uzfqiiwowbAW CASH Gomes HEMMERFacility:H1Bpzgm: 04-07-2021 End: 08-49-7903cyzycejkdfFD DOCTOR MISCFacility:H1 Procedures DateProcedureProcedure DetailPerforming ClinicianStart: 05-12-2024 Ultrasonography of right kidneyJennifer Stalinrbacher CHILD PSYCHIATRIST Work Phone: Start: 02-18-2019 End: 05-23-2023H/O: hysterectomyHistory of hysterectomySaige Hernandez MD Work Phone: H/O: hysterectomyHistory of hysterectomyHistory of decompression of median nerveHistory of carpal tunnel surgery of right wrist Ligation of fallopian tubeJENNIFER ROHRBACHER right forearmJENNIFER ROHRBACHER Plan of Treatment DateCare ActivityDetailAuthorStart: 10-13-2025 End: 73-90-8666Fmkndrh encounter gwvexzugm74/14/2026 1:20 PM EDT Office Visit [facility] [address] [place] [address] Saige Hernandez MD [address] [place] [address] [facility] DERMStart: 77-20-7736Mapxmtyms vaccination Influenza Vaccine (#1)[facility]OM HealthcareStart: 36-78-7773Nhccwqb [facility] Work Phone: Start: 93-86-1463Jcrydcd referralUniversity Hospitals [facility] Work Phone: Start: 37-96-8963Ezkynun [facility] Work Phone: Start: 85-26-2172Ahxtwsf [facility] Work Phone: Comprehensive metabolic 2000 panel - Serum or Plasma [facility] CampusDXA Skeletal system.axial Views for bone densityTrinity Health System West CampusPatient EducationLow back pain in adults [facility] Work Phone: Patient referralUniversity Hospitals Beachwood Medical [facility] Work Phone: US ExtremityTrinity Health System West CampusUS Heart TransthoracicTrinity Health System West CampusUS Kidney - bilateralAdventHealth Orlando Immunizations Immunization DateImmunizationNotesCare MfrjdzuqRxozdcoy34-58-8107aiqhqkbczf, tetanus toxoids and pertussis vaccineSaige Hernandez MD Work Phone: [facility] CenterRzzvrbpozq74-04-3700dzrkytnki B vaccine, pediatric or pediatric/adolescent dosageEmviolette Hernandez MD Work Phone: [facility] Payers DatePayer CategoryPayerPolicy [id number] Private Health InsuranceCARESOURCE MEDICAID Member Subscriber Plan / Payer (Effective 2021-Present) Name: Yanci Loco Relation to Subscriber: Self Name: Yacni Loco Payer ID: Not on file Group ID: [id number] Type: Not on file Address: [facility] [address] [place] [id number] [id number] [id number] 2.16840.1.180359.3.57[id number] 2.16840.1.250949.3.57[id number] 2.16840.1.075826.3.57[id number] 2.16840.1.534876.3.57[id number] 2.16840.1.759648.3.57[id number] 2.16840.1.946227.3.57[id number] 2.16840.1.283666.3.57[id number] 2.16840.1.596210.3.57[id number] 2.16840.1.329228.3.57[id number] 2.16840.1.579467.3.57[id number] 2.16840.1.870236.3.57[id number] 2.16840.1.443407.3.57[id number] 2.16840.1.337488.3.57[id number] 2.16.840.1.804420.3.57[id number] 2.16.840.1.251200.3.579.2.196 [id number] 2.16840.1.0[id number] 2.840.1.284042.3.579.2.531 Social History DateTypeDetailFacilityStart: 85-01-3424Jcebgmh smoking status NHISNever smoked tobacco (finding)[facility]tart: 96-91-6880Lpq Assigned At BirthFeKettering Memorial HospitalTobacco smoking statusCherrington Hospital CenterStart: 12-13-2022 End: 81-39-9327Hjhrlni smoking status NHISEx-smoker (finding)[facility]: 04-29-2024 End: 24-53-7544RzjSbkaai (finding)[facility] End: 82-16-6077Ipeqcet of tobacco useCurrent smokerNOMS Healthcare End: 06-17-0870Zsuvjog of tobacco useCigarette SmokerNOMS HealthcareStart: 33-21-4080Pgcbudd use and exposureSmokeless tobacco non-userNOMS Healthcare Start: 10-10-2023 End: 57-16-3292Svplbeolg beverage intakeLifetime non-drinker (finding)[facility] HealthcareStart: 93-90-1030Angszht of Social functionNOMS HealthcareStart: 44-57-1850Zuavlsk use panelNOMS HealthcareStart: 36-49-5299Pitfiny CommentLast smoked : > 1 monthNOMS HealthcareStart: 56-24-6357Qiz assigned at birthNot on fileNOMS Healthcare Clinical Notes 04-07-2021 to 10-28-2024 Note Date & QpdcSwgkGyabaivb96-84-8605 Hospital Discharge instructionsAmbulatory Orders* Referral to Podiatry Time Frame: 10/28/24, Location: [facility] Work Phone: 1(470) 238-872807-10-2025 History of Present illness Narrative* Saige Hernandez MD - 10/09/2024 1:05 PM EDT Follow up Diagnosis: Seborrheic Dermatitis Location: face, [...] Next Visit: 1 year documented in this [facility]06-11-2025 Evaluation note* Diagnosis Onset Date Resolution Status Admit Date Cervical stenosis of spine acuteJune 2024 10:07amLumbar spondylosisacuteJune 2024 10:07am Ingrowing left great toenailacuteJuly 2024 2:33pmIngrowing right great toenailacuteJuly 2024 2:33pmLocalized swelling, mass and lump, right lower limbacuteJuly 2024 2:33pm [facility] Work Phone: 1(329) 653-625605-05-2025 Evaluation note* Diagnosis Onset Date Resolution Status Admit Date Anxiety acuteMay 2024 1:00pmArthritisacuteMay 2024 1:00pmChronic lower back painacuteMay 2024 1:00pmDeformity of right lower extremityacuteMay 2024 1:00pmDepressionacuteMay 2024 1:00pmGERD (gastroesophageal reflux disease)acuteMay 2024 1:00pmStress headachesacuteMay 2024 1:00pm [facility] Work Phone: [phone]) 370-148605-05-2025 Evaluation note* Diagnosis Onset Date Resolution Status Admit Date Anxiety acuteMay 2024 1:00pmArthritisacuteMay 2024 1:00pmChronic lower back painacuteMay 2024 1:00pmDeformity of right lower extremityacuteMay 2024 1:00pmDepressionacuteMay 2024 1:00pmGERD (gastroesophageal reflux disease)acuteMay 2024 1:00pmStress headachesacuteMay 2024 1:00pm Cervical stenosis of spineacuteJun2024 10:07amLumbar spondylosisacute [place] 2024 10:07amIngrowing left great toenailacuteJuly 2024 2:33pm Ingrowing right great toenailacuteJuly 2024 2:33pm [facility] Work Phone: 1(659) 900-125002-10-2025 Radiology Diagnostic study noteDI[facility]ID[facility] [place] [address] Ultrasound Report Signed Patient: Yanci Loco MR#: [id number] : 1985 Acct:[id number] Age/Sex: 38 / F ADM Date: 5 Loc: Room: [facility]: Penelope Garcia APRN, PROFILER-C Ordering Provider: Penelope Garcia APRN, RAG COLLECTOR Date of Service: 05/12/24 US/US renal RT: [...] Whitney Jr., NidiaOPer05/12/2024 4:24 PM Dictation Location: [place] [address] Tech: Dana Pack Transcribed By: TANA 05/12/24 162 Dictated By: Mike Whitney Jr, DO 05/12/24 162 Signed By: 05/12/24 [facility]4 [facility]01-28-2025 Evaluation note* Diagnosis Onset Date Resolution Status Admit Date Family history of osteoporosis acuteJanuary 2024 12:56pmHistory of hysterectomyacuteJanuary 2024 12:56pmKidney anomaly, congenitalacuteJanuary 2024 12:56pmScreening for osteoporosisacuteJanuary 2024 12:56pmSprain of right ankleacuteJanuary 2024 12:56pm [facility] Work Phone: 1(451) 254-253511-01-2024 Evaluation note* Diagnosis Onset Date Resolution Status Admit Date Anxiety acuteNovember 2023 9:21amArthritisacuteNovember 2023 9:21amChronic lower back painacuteNovember 2023 9:21amDeformity of right lower extremity acuteNovember 2023 9:21amDepressionacuteNovember 2023 9:21amGERD (gastroesophageal reflux disease)acuteNovember 2023 9:21amStress headaches acuteNov2023 9:21amFamily history of osteoporosisacuteJanuary 2024 12:56pmHistory of hysterectomyacuteJanuary 2024 12:56pmKidney anomaly, congenitalacuteJanuary 2024 12:56pmScreening for osteoporosis acuteJanuary 2024 12:56pmSprain of right ankleacuteJanuary 2024 12:56pmWellness examinationacuteJanuary 2024 12:56pm [facility] Work Phone: 1(594) 188-206603-20-2024 Hospital Discharge instructionsAmbulatory Orders* Referral to Orthopedic Surgery Time Frame: 06/20/23, Location: None Selected [facility] Work Phone: 1(573) 402-985610-10-2022 NotePROCEDURE: XR ANKLE RT MIN 3 VIEWS HISTORY: Contusion of right ankle ; acute anterior right ankle pain since injury 16 days ago COMPARISON: XR ankle right 12/31/2021 FINDINGS: BONES:No fracture, acute abnormality, or significant arthropathy. SOFT TISSUES:No visible soft tissue swelling. EFFUSION:None visible. OTHER: Negative. IMPRESSION: 1. Normal examination. Electronically authenticated by: LIZANDRO DELACRUZ Date: 2022-01-09 16:12[facility] NotePROCEDURE: XR FEMUR LT COMPARISON: None. HISTORY: Unspecified fall FINDINGS: BONES:No fracture, acute abnormality, or significant arthropathy. SOFT TISSUES:Negative. No visible soft tissue swelling. EFFUSION:None visible. OTHER: Negative. IMPRESSION: No acute abnormality Electronically authenticated by: TEODORO WHITLEY Date: 2021-04-07 09:14[facility] No data available for this section [facility] Diagnosis Onset Date Resolution Status Anxiety acuteAsthmaacuteDepressionacuteIrregular heart beatacuteMaxillary sinusitisacute ScoliosisacuteTrigger finger of right handacute [facility] Work Phone: Evaluation note* Diagnosis Onset Date Resolution Status Anxiety acuteAsthmaacuteDepressionacuteIrregular heart beatacuteMaxillary sinusitisacute ScoliosisacuteTrigger finger of right handacuteCongenital heart defectacute Irregular heart beatacuteScoliosisacute [facility] Work Phone: Evaluation note* Diagnosis Onset Date Resolution Status Congenital heart defect acuteDeformity of right lower extremityacuteIrregular heart beatacuteScoliosis acuteStress headachesacuteTrigger finger of right handacuteRashacute [facility] Work Phone: Evaluation note* Diagnosis Onset Date Resolution Status Anxiety acuteChronic lower back painacuteDeformity of right lower extremityacute DepressionacuteGERD (gastroesophageal reflux disease)acuteStress headachesacute [facility] Work Phone: Evaluation note* Diagnosis Onset Date Resolution Status Admit Date Anxiety acuteMay 2024 1:00pmArthritisacuteMay 2024 1:00pmChronic lower back painacuteMay 2024 1:00pmDeformity of right lower extremityacuteMay 2024 1:00pmDepressionacuteMay 2024 1:00pmGERD (gastroesophageal reflux disease)acuteMay 2024 1:00pmStress headachesacuteMay 2024 1:00pm [facility] Work Phone: Evaluation note* Diagnosis Other seborrheic dermatitis- Primary documented in this encounter [facility] Dis[facility] instructions No data available for this section [facility] Dis[facility] instructionsAmbulatory Orders* Referral to Pain Management Time Frame: 02/01/24, Location: None [facility] Work Phone: Hospital Discharge instructionsAmbulatory Orders* Referral to Podiatry Time Frame: 04/29/24, Location: None [facility] Work Phone: Progress note No data available for this section [facility] for referral (narrative)No reason for referral [facility] Work Phone: Summary Purpose Family History No Family History Records Found Relationship Condition Age at Onset Recorded Date/T donna Not Specified Seizure Unknown Not SpecifiedDiabetes mellitusUnknownHypertensionUnknownAnxietyUnknownDepression Unknown Relationship Condition Age at Onset Recorded Date/T donna Not Specified Seizure Unknown motherDiabetes mellitusUnknownHypertensionUnknownAnxietyUnknownDepressionUnknown Advance Directives No Advanced Directives Records Found [...] Complaint establish - trigger finger discuss full workupReason for VisitAnxiety Asthma Depression Irregular heart beat Maxillary sinusitis Scoliosis Trigger finger of right hand Congenital heart defect Irregular heart beat Scoliosis Chief Complaint discuss full workup RashReason for VisitCongenital heart defect Deformity of right lower extremity Irregular heart [...] ER f/u right foot injury April 29, 12:56pm Reason for Visit Admit Date Anxiety [...] section and content) DATE CREATED AUTHOR 01/10/2022 [facility] DATE CREATED AUTHOR AUTHOR'S ORGANIZ ATION 08/16/2023 [facility] DATE CREATED AUTHOR AUTHOR'S ORGANIZ ATION 10/13/2024 [facility] EPIC DATE CREATED AUTHOR AUTHOR'S ORGANIZ ATION 01/05/2025 [facility] DATE CREATED AUTHOR AUTHOR'S ORGANIZ ATION 01/17/2025 [facility] Care Teams (unrecognized sec tion and content) Team Status: Active Member Role Status Dates Penelope Garcia APRN PROFILER-C Primary Care Provider Active Team Status: Inactive Member Role Status Dates Penelope Garcia APRN PROFILER-C Primary Care Provider, Attending Provider Active Start: June 20, 2023 End: June 20, 2023 Team Status: Inactive Member Role Status Dates Penelope Garcia APRN PROFILER-C Primary Care Provider, Attending Provider Active Start: August 06, 2023 End: August 06, 2023 Team Status: Inactive Member Role Status Dates Penelope Garcia APRN PROFILER-C Primary Care Provider, Attending Provider Active Start: September 27, 2023 End: September 27, 2023 Team Status: Inactive Member Role Status Dates Penelope Garcia APRN PROFILER-C Primary Care Provider, Attending Provider Active Start: February 01, 2024 End: February 01, 2024 Team Status: Active Member Role Status Dates Penelope Garcia APRN PROFILER-C Primary Care Provider Active Start: April Khadijah Corbin CMAAttending ProviderActiveStart: April 22, 2024 Team Status: Inactive Member Role Status Dates Penelope Garcia APRN PROFILER-C Primary Care Provider, Attending Provider Active Start: April 29, 2024 End: April 29, 2024 Team Status: Active Member Role Status Dates Penelope Garcia APRN PROFILER-C Primary Care Provider, Attending Provider Active Start: April 30, 2024 Team Status: Inactive Member Role Status Dates Penelope Garcia APRN PROFILER-C Primary Care Provider, Attending Provider Active Start: May 12, 2024 End: May 12, 2024 Team Status: Inactive Member Role Status Dates Penelope Garcia APRN PROFILER-C Primary Care Provider, Attending Provider Active Start: August 04, 2024 End: August 04, 2024 Team Status: Inactive Member Role Status Dates Penelope Garcia APRN PROFILER-C Primary Care Provider, Attending Provider Active Start: September 10, 2024 End: September 10, 2024Team MemberRelationshipSpecialtyStart DateEnd Date Penelope Garcia NP [address] [place] [address] PCP - [facility]10/03/23 Ce Reyes MD [address] [facility] [address] [place] [address] [facility]04/02/24Team MemberRelationshipSpecialtyStart DateEnd Date Penelope Garcia NP [address] [place] [address] [facility]10/03/23 Ce Reyes MD [address] [facility] [address] [place] [address] [facility]04/02/24 Team Status: Inactive Member Role Status Dates Penelope Garcia APRN PROFILER-C Primary Care Provider Active Start: August 04, 2024 End: August 04, 2024Penelope Garcia APRN PROFILER-CAttending ProviderActiveStart: August 04, 2024 End: August 04, 2024 Team Status: Inactive Member Role Status Dates Penelope Garcia APRN PROFILER-C Primary Care Provider Active Start: September 10, 2024 End: September 10, 2024Penelope Garcia APRN PROFILER-CAttending ProviderActive Start: September 10, 2024 End: September 10, 2024 Team Status: Inactive Member Role Status Dates Penelope Garcia ANTOINE PROFILER-C Primary Care Provider Active Start: October 28, 2024 End: October 28, 2024Penelope Garcia APRN PROFILER-CAttending ProviderActive Start: October 28, 2024 End: October 28, 2024 Team Status: Inactive Member Role Status Dates Penelope DoejodieJASSI berriosN PROFILER-C Primary Care Provider Active Start: November 28, 2024 End: November 28, 2024Penelope Garcia APRN PROFILER-CAttending ProviderActive Start: November 28, 2024 End: November 28, [...] BE BASED ON THE PRIMARY CLINICAL RECORDS. [facility] provides no warranty or guarantee of the accuracy or completeness of information in this document.
--- NOTE | 2025-01-21 14:00 | P.CN_ITS ---
Consult Note: HPI Data of Consult Patient: known to practice within the last 3 years Requesting Physician: Anna Stroud NP Primary Care Provider: KARIN MALONE Family Provider: CASH DANIEL Consult Narrative Reason for consult: neck pain Narrative: Yanci owen pleasant 39 year old female with chronic neck pain unresponsive to > 6 weeks of PT/HEP, heat, ice, tylenol, NSAIDs presents for evaluation. noting pain 3/10 pressure stabbing increasing to 4-5/10 with standing, walking, lifting arms, shower, activity, sleep, and housework. utilizing baclofen and diclofenac gel PRN with benefit, denies side effects. pt recently underwent bilateral C5-6 TFESI with no relief per pt however her verbalized pain score is no longer up to 9/10 and she denies numbness tingling weakness to BUE. cc:: CC: Anna Stroud NP Review of Systems ROS Musculoskeletal Reports: neck pain PFSH PFSH Medical History Osteoarthritis ?M19.90 - Unspecified osteoarthritis, unspecified site (ICD-10) Carpal tunnel syndrome ?G56.00 - Carpal tunnel syndrome, unspecified upper limb (ICD-10) Acid reflux ?K21.9 - Gastro-esophageal reflux disease without esophagitis (ICD-10) Asthma ?J45.909 - Unspecified asthma, uncomplicated (ICD-10) Heart murmur ?R01.1 - Cardiac murmur, unspecified (ICD-10) Irregular heartbeat ?I49.9 - Cardiac arrhythmia, unspecified (ICD-10) Surgical History History of carpal tunnel release ?Z98.890 - Other specified postprocedural states (ICD-10) History of hysterectomy ?Z90.710 - Acquired absence of both cervix and uterus (ICD-10) History of tubal ligation ?Z98.51 - Tubal ligation status (ICD-10) History of surgery on arm ?Z98.890 - Other specified postprocedural states (ICD-10) Social History Smoking status: Former smoker Little interest or pleasure in doing things: not at all Feeling down, depressed, or hopeless: not at all Meds Home Medications and Allergies Home Medications ?Medication ?Instructions ?Recorded ?Confirmed ?Type albuterol sulfate 90 mcg/actuation 2 puff inhalation Q 6H PRN wheezing 11/15/22 01/12/25 History aerosol inhaler ciclopirox 0.77 % topical cream 1 applic topical Q12H 11/15/22 01/12/25 History diclofenac sodium 1 % topical gel 2 g topical QID 10/3101/12/25 History ciclopirox 1 % shampoo 5 ml topical QWEEK 04/16/23 01/12/25 History epinephrine 0.3 mg/0.3 mL 0.3 mg (0.3 mL) IM ONCE PRN 10/01/23 01/12/25 Rx injection, auto-injector allergic reaction #2 ea famotidine 20 mg tablet (Pepcid) 20 mg PO BID #10 tabs 10/01/23 01/12/25 Rx aripiprazole 2 mg tablet 2 mg PO DAILY 02/11/2401/12 History ibuprofen 800 mg tablet mg 09/08/24 History Allergies Allergy/AdvReac Type Severity Reaction Status Date / Time Penicillins Allergy Severe Rash Verified 01/12/25 08:14 tramadol Allergy Severe Swelling Verified 01/12/25 08:14 of Lip/Tongue/Throat Pertussis Vaccines Allergy Mild Unknown Verified 01/12/25 08:14 prednisone Allergy Unknown Unknown Verified 01/12/25 08:14 spinach Allergy Hives Verified 01/12/25 08:14 bees AdvReac Mild sob Uncoded 01/12/25 08:14 Exam Constitutional Documenting provider has reviewed patient's vital signs: yes Common normals: no apparent distress, oriented x3, healthy appearing, alert and well nourished General appearance: cooperative [facility] Common normals: normocephalic, hearing grossly normal bilaterally and moist oral mucous membranes Head and scalp: normocephalic Eye Common normals: PERRL Pupil: PERRL Neck & C-Spine Common normals: full ROM Cervical spine: cervical ROM abnormal rotation to the left decreased, pain with cervical ROM and cervical spine tenderness Other: negative spurlings sensation intact BUE strength 5/5 in BUE positive facet loading Chest Common normals: inspection of chest normal Respiratory Common normals: normal respiratory effort, no retractions and no use of accessory muscles Neuro Common normals: oriented x3 Sensorium/orientation: alert Psych Common normals: mental status grossly normal, thought process normal, cooperative, affect normal, speech normal and activity/motor behavior normal Speech: normal speech Thought process: normal thought process Results Additional Findings Additional findings: If on a controlled substance or opioids, I have checked an [place] report on this patient and there are no aberrancies noted in the prescribing history.??If on a controlled substance or opioid a drug screen was completed and reviewed within the last year, and if there has not been a drug screen completed we ordered one today to monitor higher risk, state monitored pain medication use. As part of providing excellent, safe, comprehensive care, the following was completed at our patient's visit: 1. A medication reconciliation and review to ensure accurate knowledge of current/active medications, including asking our patients to inform us about any [id number] medications or herbal remedies/nutritional supplements/alternative remedies. 2. A review to specifically ensure our patients have had annual screening for screening for depression, screening for tobacco use, and screening for unhealthy alcohol use. For concerning screenings had a discussion with the patient, provided patient education, and recommended follow-up with primary care provider when appropriate. If patient noted with a risk of falling, they received education on strength, gait, and balance training to prevent future risk of falling. Portions of this note may have been carried over from the previous visit and updated as appropriate. Please note this office utilizes paper charting in addition to the electronic medical record. A list of current medications, vitals, and PMH is available there as the clinical staff outside of myself do not have access to [employer] charting during the clinic day operations. As part of providing quality comprehensive care the current medications, vitals, and PMH were reviewed in the paper chart. Assessment and Plan Assessment and Plan (1) Cervical radiculopathy: Assessment and Plan: significant improvement on exam (2) Lumbar spondylosis: (3) Cervical spondylosis: Plan The patient has had over 3 months of moderate to severe neck pain with functional impairment and inadequate response to conservative care including NSAIDS (unless there are contraindication such as concurrent blood thinners), multiple oral or topical pain medications, and home exercise program/physical therapy.? Patient has completed >6 weeks of guided home exercise program and/or formal physical therapy program without relief of their symptoms.? I have reviewed the imaging of the cervical spine and no red flags were identified.? The imaging reveals radiographic findings consistent with cervical radiculopathy The Oswestry Disability Index was completed, and the patient scored a 47%.? noting headache/dizziness post cervical MAXX, physical exam as noted above. likely side effects from steroidal injection encouraged tylenol for facet mediated pain, can consider cervical mbbs in consideration of RFA at next visit continue baclofen 10mg TID PRN pt utilizing motrin, thought she couldnt take tylenol with hx of 1 kidney. advised pt to limit/avoid NSAIDs. tylenol/acetaminophen is a safer alternative for otc pain relief utilizing diclofenac gel, okay to continue f/u 1 month, sooner if needed
== END 2025-01-21 13:35 | disposition home or self-care (01) ==
LOC: PM 13:35
PROVIDERS: Family Provider Physician Assistant; PCP Nurse Practitioner Family; Visit Provider Nurse Practitioner
DX: M54.12 Radiculopathy, cervical region (principal); M47.816 Spondylosis without myelopathy or radiculopathy, lumbar region; M47.812 Spondylosis without myelopathy or radiculopathy, cervical region
CPT/HCPCS: G0463

== ENCOUNTER 2025-02-19 13:32 | Outpatient (OUT) | payer OTHER, SELFPAY ==
--- OUTSIDE RECORDS SUMMARY | 2025-02-19 13:37 | XMS_ITS | CCD ---
Author Organization [facility] Care Team Providers Care Dress Fitter Name Role Phone KOLBY KIRK Admitting Unavailable [...] TIMMIS, DR WHITMAN Consulting Unavailable ZIEBER, DR OZZY Berrios Consulting Unavailable HEMMER, DR EKTA Gomes Consulting Unavailable HEMMER, DR EKTA Gomes Admitting Unavailable HEMMER, DR EKTA Gomes Attending Unavailable MISC, DR PETERSON Primary Care Unavailable ZIEBER, DR OZZY Berrios Consulting Unavailable HEMMER, DR EKTA Gomes Consulting Unavailable HEMMER, DR EKTA Gomes Admitting Unavailable HEMMER, DR EKTA Gomes Attending Unavailable ANGÉLICA, DR ALEGRIA Primary Care Unavailable HOODSANNA Consulting Unavailable HEMMER, DR EKTA Gomes Consulting Unavailable LAKSHMIANJELICA FRENCH Primary Care Physician PENELOPE GARCIA Attending Unavailab le MARYAMRBACHEPENELOPE Berrios Admitting Unavailab le Maryamrbachefaiza SCHULTZ, Penelope Primary Care Provider Penelope Garcia APRN Attending Provider [phone] Penelope Garcia APRN Primary Care Provider Jose SCHULTZ, Penelope Attending Provider Jose TAVARES, Penelope Chao Primary Care Provider Ce Reyes MD Unavailable PETITTI, SAIGE A Attending Unavailable Rohrbacher TEACHER OF THE VISUALLY IMPAIRED, Penelope Primary Care Provider Rohrbacher TEACHER OF THE VISUALLY IMPAIRED, Penelope Attending Provider Rohrbacher TEACHER OF THE VISUALLY IMPAIRED, Penelope Primary Care Provider Rohrbacher TEACHER OF THE VISUALLY IMPAIRED, Penelope Attending Provider [phone] Rohrbacher, Penelope Admitting Unavailable Rohrbacher, Penelope Attending [...] Unavailable Giedraitis MD, Andrius Vytautas Attending Unavailable Patricmer Ekta CABRERA Unavailable Rohrbacher ANTOINE, Penelope Primary Care Provider Rohrbacher ANTOINE, Penelope Other Provider Morenita Hopson MD Attending Provider [phone] Khadijah Corbin CMA Attending Provider Unavaila ble Rohrbacher TEACHER OF THE VISUALLY IMPAIRED, Penelope Attending Provider Allergies Allergy ClassificationReported Allergen(s)Allergy TypeDate of OnsetReaction(s) Facility (1 source)cefdinirDrug Hxzyhpm40-15-0730JrzOhio [facility] (12 sources)PenicillinsDrug allergy (disorder)18-40-4328JxtoaYzsFlower [facility] Rep[facility] (12 sources)predniSONEDrug Vaguwwq93-97-2265IkqecutfuCkl [facility] (1 source)traMADolDrug Lwvcfzo97-02-1313OrvOhio Valley Surgical Hospital Repository (1 source)Pertussis Immune GlobulinDrug allergy (disorder)26-28-3098NcrOhio Valley Surgical Hospital Repository (18 sources)spinach allergenic extract; Translations: [Spinach (substance)]Drug Wkqlnjj97-74-0359Xuddol constriction (finding), AnaphylaxisKettering Memorial Hospital (12 sources)bee venom protein (honey bee); Translations: [bee venom protein (honey bee)]Allergy to wxujdkixq72-24-8515QcdniuivgxdTvsogqcky [facility] (12 sources)diphtheria,pertussis (acellular),te; Translations: [diphtheria,pertussis (acellular),te]Allergy to rqahtdswc47-29-7620Axhkziw ReactionKettering Memorial Hospital (2 sources)Bee/Wasp/Ant venom; Translations: [Bee Stings]Drug allergyWay[facility] (2 sources)Penicillin; Translations: [penicillin]Drug AllergyWayne Healthcare Main Campus (2 sources)Pertussis Vaccine; Translations: [Whooping-cough vaccine]Drug Allergy Airway constriction (finding)[facility] (2 sources)Sodium Bicarbonate; Translations: [Baking soda]Drug AllergyRed color (finding)[facility] (4 sources)buPROPionDrug Pzoivtk86-99-6954YsrppRVES Healthcare Work Phone: (4 sources)FLUoxetineDrug Zguycgb93-78-5105OLAJ [facility] (4 sources)Honey bee venomAllergy to witqqtoku30-19-9168UldxasqzwnhQROW Healthcare Work Phone: (4 sources)Penicillin GDrug Fjvqxco10-86-2985KVRK [facility] (4 sources)PrednisoneAllergy to tfqejytkc86-35-6307DONU Healthcare (4 sources)traMADolDrug Qiqvllg39-33-4934CfwxzijCDDO Healthcare (4 sources)Pertussis VaccinesDrug Linmzrr50-16-1152HgmkbsmCEKU Healthcare (1 source)PenicillinsDrug allergy (disorder)75-10-2953AenorhwbrKettering Memorial Hospital Repository (1 source)predniSONEDrug Lzswbjh93-44-1737RedzjruomKettering Memorial Hospital Repository Medications Current Medications MedicationDrug Class(es)DatesSig (Normalized)Sig (Original)Acetaminophen / HYDROcodone (1 source)Opioid AgonistStart: 61-89-2859Ltiwdve 500 mg-5 mg Tab 1 tab(s), Oral, q4hr as needed for pain, 10 tab(s), Refill(s) 0, Take one tab by mouth every four hours as needed for pain Start Date: 06/13/11 Status: OrderedAlbuterol Sulfate 90 mcg/actuation HFA aerosol inhaler (4 sources)Start: 48-34-6591cxov 1 puff(s) by inhalation every six hours as needed for wheezingAlbuterol Sulfate 90 mcg/actuation HFA aerosol inhaler Active 2 PUFF INHALATION Every 6 hours as needed for shortness of breath or wheezing 6.7 January 30, 2024 4:08pmStart: 45-85-6276sayx 1 puff(s) by inhalation every six hours as needed for wheezingAlbuterol Sulfate 90 mcg/actuation HFA aerosol inhaler Active 2 PUFF INHALATION Every 6 hours as needed for shortness of breath or wheezing 6.7 January 30, 2024 3:08pmciclopirox 7.7 mg/ml topical cream (20 sources)Start: 54-91-8818Etyhtqhael 1 % shampoo Active TOPICAL February 02, 2025 12:00am Complies with drug therapyStart: 38-53-4839Cbsmvdswni 0.77 % cream Active APPLIC TOPICAL Once February 02, 2025 12:00am Complies with drug therapy Start: 95-02-8856Wbdhxkdwcb 1 % shampoo Indications: Other seborrheic dermatitis Use as shampoo 2-3x/week, allow to sit on scalp for 5 minutes before rinsing off 120 mL 10/09/2024 ActiveStart: 86-60-5970zbakabjgns (Loprox) 0.77 % cream Indications: Other seborrheic dermatitis Apply (0.7g) to face oncedaily 30 g 10/09/2024 ActiveStart: 75-86-2570Dzsphgxzhy 1 % shampoo Indications: Other seborrheic dermatitis Use as shampoo 2-3x/week, allow to sit on scalp for 5 minutes before rinsing off 120 mL 10/09/2024 ActiveStart: 10-09-2024 ciclopirox (Loprox) 0.77 % cream Indications: Other seborrheic dermatitis Apply (0.7g) to face oncedaily 30 g 11 10/09/2024 ActiveStart: 10-09-2023 End: 64-31-3275Cpxudxjqsu 1 % shampoo Indications: Other seborrheic dermatitis Use as shampoo 2-3x/week, allow to sit on scalp for 5 minutes before rinsing off 120 mL 11 10/09/2023 10/09/2024 DiscontinuedStart: 06-20-2023 End: 85-93-2485Wwxdojgyfq 1 % shampoo Discontinued TOPICAL June 19, 2023 11:00pm February 01, 2024 8:32amStart: 06-20-2023 End: 88-32-5592Imvfymodzz 0.77 % cream Discontinued 1 APPLIC TOPICAL Daily June 19, 2023 11:00pm February 01, 2024 8:32amStart: 06-20-2023 End: 92-34-7393Wyavyyymar Discontinued TOPICAL June 20, 2023 12:00am February 01, 2024 9:38szuwg074161 0.3 ml EPINEPHrine 1 mg/ml auto-injector (17 sources)alpha-Adrenergic Agonist, beta-Adrenergic Agonist, Catecholamine Start: 06-20-2023 End: 90-62-9622Gdfsmrvvhdr 0.3 mg/0.3 mL auto-injector Active 0.3 ML SUBCUT Once as needed for anaphylaxis 2 1 November 24, 2024 2:51pm 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 Complies with drug therapyStart: 13-28-9116KEKZIAAhjvp (Epipen) 0.3 MG/0.3ML injection syringe Indications: Allergic reaction to bee sting Inject 0.3 mL (0.3 mg) as directed Daily as needed for anaphylaxis (Must be seen in ER if medication used) 2 each 2 06/06/2023 Activefluticasone / salmeterol (1 source)Corticosteroid, beta2-Adrenergic AgonistStart: 51-62-6316wqnp 1 puff(s) by inhalation once dailyAdvair 250 mcg-50 mcg Powder 1 puff(s), Inhalation, Daily, Refill(s) 0 Start Date: 12/07/09 Status: Orderedibuprofen 800 mg oral tablet (20 sources)Nonsteroidal Anti-inflammatory DrugStart: 12-25-2023 End: 97-73-0052brbb 1 tablet by mouth every eight hours as needed for pain Ibuprofen 800 mg tablet Active 800 MG PO Every 8 hours as needed for pain 90 30 1 February 02, 2025 3:02pm Complies with drug therapyStart: 06-20-2023 End: 85-59-2434mkih 1 tablet by mouth every six hours as neededIbuprofen 800 mg tablet Discontinued 800 MG PO Every 6 hours as needed June 19, 2023 11:00pm December 25, 2023 10:24amStart: 23-97-1601rkqj 1 tablet by mouth three times daily as needed for painibuprofen 800 MG tablet Take 800 mg by mouth 3 (three) times a day as needed for mild pain or moderate pain. 01/05/2022 ActiveSingulair (1 source)Leukotriene Receptor AntagonistStart: 75-03-4934Ctseiscxd Oral, Daily, Refills(s) 0 Start Date: 12/07/09 Status: Orderednaproxen 500 mg oral tablet (2 sources)Nonsteroidal Anti-inflammatory DrugStart: 10-03-5321jumr 1 tablet by mouth twice daily as needed for painNaprosyn 500 mg Tab 500 mg = 1 tab(s), Oral, BID, PRN for pain, # 20 tab(s), Refills(s) 0 Start Date: 06/22/15 Status: Ordered ProAir HFA 90 mcg/inh inhalation aerosol (1 source)Start: 80-67-7153hxav 2 puff(s) by inhalation four times dailyProAir HFA 90 mcg/inh inhalation aerosol 2 puff(s), Inhalation, QID, Refill(s) 0 Start Date: 12/07/09Status: Ordered Completed/Discontinued Medications MedicationDrug Class(es)DatesSig (Normalized)Sig (Original)[id number] 200 actuat albuterol 0.09 mg/actuat metered dose inhaler (20 sources)beta2-Adrenergic AgonistStart: 17-74-6699elmc 1 puff(s) by inhalation every six hoursAlbuterol Sulfate Active 2 PUFF INHALATION Every 6 hours 6.7 January 30, 2024 4:08pmStart: 32-14-7933mdnu 2.5 mg by inhalation every four to six hours as needed for wheezingAlbuterol Sulfate 2.5 mg /3 mL (0.083 %) solution for nebulization Active 2.5 MG INHALATION EVERY 4-6 HOURS as needed for shortness of breath or wheezing 90 30 0 June 19, 2023 11:00pm Asthma Unspecified asthma, uncomplicated Complies with drug therapyStart: 06-20-2023 End: 92-34-9587mmhs 1 puff(s) by inhalation every six hours as needed for wheezingAlbuterol Sulfate 90 mcg/actuation HFA aerosol inhaler Discontinued 2 PUFF INHALATION Every 6 hoursas needed for shortness of breath or wheezing 6.7 5 January 30, 2024 3:08pm October 27, 2024 6:46am Asthma Unspecified asthma, uncomplicatedalbuterol HFA (Ventolin HFA) 90 mcg/act inhaler every 6 (six) hours. ActiveARIPiprazole 2 mg oral tablet (20 sources)Atypical AntipsychoticStart: 06-20-2023 End: 38-32-8669daik 1 tablet by mouth once dailyAripiprazole 2 mg tablet Discontinued 2 MG PO Daily 90 90 1 February 01, 2024 8:44am August 04, 2024 12:31pm Depression Anxiety Depression, unspecified Anxiety disorder, unspecified baclofen 10 mg oral tablet (3 sources)gamma-Aminobutyric Acid-ergic AgonistStart: 10-28-2024 End: 55-80-8610bpyq 1 tablet by mouth three times dailyBaclofen 10 mg tablet Discontinued 10 MG PO Three times daily October 27, 2024 11:00pm February 02, 2025 2:25pmdiclofenac sodium 0.01 mg/mg topical gel (15 sources)Nonsteroidal Anti-inflammatory DrugStart: 06-20-2023 End: 22-19-8902Kyykbjtrzb Sodium 1 % gel Discontinued TOPICAL June 19, 2023 11:00pm February 01, 2024 8:32amStart: 06-20-2023 End: 36-69-3654Ghlfqvrefd Sodium 1 % gel Discontinued TOPICAL June 20, 2023 12:00am February 01, 2024 9:32amStart: 06-20-2023 End: 47-90-4893Mnhonotdkq Sodium 1 % gel Discontinued TOPICAL June 19, 2023 11:00pm February 01, 2024 8:32amStart: 06-20-2023 End: 24-22-0556Mkpzdojvkz Sodium Discontinued TOPICAL June 20, 2023 12:00am February 01, 2024 9:32amStart: 98-34-6926Elscbbhwuy Sodium Active TOPICAL June 20, 2023 12:00amStart: 82-27-0766gcxvnfbbge sodium 1 % gel Indications: Contracture of joint of right hand Apply 2 g topically in the morning and 2 g at noon and 2 g in the evening and 2 g before bedtime. 50 g 2 06/06/2023 Active doxycycline monohydrate 100 mg oral tablet (11 sources)Tetracycline-class DrugStart: 06-20-2023 End: 09-22-5881clcj 1 tablet by mouth twice dailyDoxycycline Monohydrate 100 mg tablet Discontinued 100 MG PO Twice daily 20 10 0 June 19, 2023 11:00pm February 01, 2024 8:32am Maxillary sinusitis Chronic maxillary sinusitis famotidine 20 mg oral tablet (20 sources)Histamine-2 Receptor AntagonistStart: 02-01-2024 End: 24-76-0694ylbj 1 tablet by mouth once dailyFamotidine 20 mg tablet Discontinued 20 MG PO Daily 90 90 1 February 01, 2024 8:45am August 04, 2024 12:31pm Gastroesophageal reflux disease Gastro-esophageal reflux disease without esophagitismethylPREDNISolone 4 mg oral tablet (9 sources)CorticosteroidStart: 09-27-2023 End: 42-90-2757vsjr 1 tablet by mouth onceMethylprednisolone (Medrol (Dominick)) 4 mg tablets,dose pack Discontinued 0 PO per package directions 21 6 0 September 26, 2023 11:00pm February 01, 2024 8:33am Rash Rash and other nonspecific skin eruption PO PER PKG DIRmupirocin 0.02 mg/mg topical ointment (11 sources)RNA Synthetase Inhibitor AntibacterialStart: 06-20-2023 End: 11-60-6291Aqcjgdufm 2 % ointment Discontinued 1 APPLIC TOPICAL Twice daily 22 7 0 June 19, 2023 11:00pm February 01, 2024 8:33am Problems Active Problems Problem ClassificationProblemDateDocumented DateEpisodic/ChronicAllergic reactions (2 sources)Allergy to honey bee venom; Translations: [Bee allergy status] 63-38-1172TqujchfpHxnexsy disorders (19 sources)Anxiety; Translations: [Anxiety disorder, unspecified]06-20-2023 ChronicAsthma (16 sources)Unspecified asthma, uncomplicated; Translations: [Asthma]Onset: 235428-70-2027NsqwexiItcmlwh and circulatory congenital anomalies (13 sources)Congenital heart disease; 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, unspecified]Onset: 999662-43-3510FznfgnuMgvjgou dysrhythmias (15 sources)Irregular heart beat; Translations: [Cardiac arrhythmia, unspecified]76-81-2926PllfjbcVafkwiq on above:has pin hole in heartConduction disorders (1 source)Conduction disorder of the -58-9369GejdgrmRzmofxuxen and other anemia (1 source)Cosgtt43-19-6875WkmegnsfLuvezehnh of lipid metabolism (4 sources)Raised low density lipoprotein cholesterol; Translations: [Pure hypercholesterolemia, unspecified]Onset: 090640-07-4354AyvjxxlK Codes: Struck by; against (1 source)Striking against or struck by other objects, initial encounter; Translations: [STRIKING AGNST/STRUCK OTH OBJ INIT]Onset: 51-67-4630YahhufzoXkpqv or threatened labor (1 source)Premature -79-7095CwqcntezTxoxvzwwmk disorders (14 sources)Gastroesophageal reflux disease; Translations: [Gastro-esophageal reflux disease without esophagitis]09-62-6238JpkbrdwFnpatcapbfboi congenital anomalies (14 sources)Congenital anomaly of the kidney; 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, unspecified]Onset: 096256-79-0635OgiomdbDuzbx valve disorders (1 source)Heart mdzaxi43-22-9089EsniuvjsXvzgnibqvrsxc mental health disorders (16 sources)Psychogenic headache; 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]86-97-8921CmeurkuSten disorders (20 sources)Depressive disorder; Translations: [Depression]Onset: 11-07-2022 66-09-6646LbultwuRhwmciqlgriiqu (17 sources)Unspecified osteoarthritis, unspecified site; Translations: [Arthritis]Onset: 805285-33-7797UvfnuoaBqmyjxd on above:Right wrist/arm Other acquired deformities (5 sources)Scoliosis, unspecified; Translations: [Scoliosis [and kyphoscoliosis], idiopathic]Onset: 388403-46-6844IbjvpoiJxrrk acquired deformities (11 sources)Scoliosis deformity of spine; Translations: [Scoliosis, unspecified] 61-15-4409VwtbwnqFzxmg acquired deformities (11 sources)Deformity of lower limb; Translations: [Unspecified acquired deformity of right thigh]89-10-7028YrafqrtmZnhzi acquired deformities (5 sources)Unspecified acquired deformity of right thigh; Translations: [Other acquired deformity of other parts of limb]51-57-9240AukrkdhrYcwdf bone disease and musculoskeletal deformities (1 source)Idiopathic ycvifbvhe76-06-5848MxequsvLnrco bone disease and musculoskeletal deformities (4 sources)Idiopathic scoliosis of thoracic and lumbar spine; Translations: [Other idiopathic scoliosis, thoracolumbar region]Onset: ChronicOther congenital anomalies (1 source)Congenital postural kqwrxritc49-73-9826KnqgvkgIpxlf congenital anomalies (4 sources)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; Translations: [Congenital malformation of posteriorsegment of eye, unspecified]Onset: 666765-73-7128JpcczzoAaloc connective tissue disease (8 sources)Triggering of digit; Translations: [Trigger finger, unspecified finger]02-83-7824FurlfmpwZwdml connective tissue disease (3 sources)Trigger finger, unspecified finger; Translations: [Trigger finger (acquired)]88-61-0542IkadljtsObfbx connective tissue disease (3 sources)Trigger finger of right hand; Translations: [Trigger finger, unspecified finger]32-28-8481KbxjlassXjlfm inflammatory condition of skin (2 sources)Seborrheic dermatitis; Translations: [Other seborrheic dermatitis] 60-52-5487TeovisafMdppz nervous system disorders (12 sources)Carpal tunnel syndrome; Translations: [Carpal tunnel syndrome, unspecified upper limb]22-56-4345JlyfistBguwm nervous system disorders (4 sources)Carpal tunnel syndrome of left wrist; Translations: [Carpal tunnel syndrome, left upper limb]Onset: 43-43-780258350168-77-4692LrvecmsXsvmk non-traumatic joint disorders (4 sources)Derangement of right shoulder joint; Translations: [Other specific joint derangements of right shoulder, not elsewhere classified]Onset: 09-22-2022 00-27-7784TmmexgkHfixk non-traumatic joint disorders (3 sources)Pain in right ankle and joints of right foot; Translations: [PAIN IN RIGHT ANKLE]Onset: 92-44-6457VbgdgwurNvuww screening for suspected conditions (not mental disorders or infectious disease) (9 sources)Patient encounter status; Translations: [Encounter for screening for osteoporosis]51-36-4764QdcixefoEbjdq skin disorders (9 sources)Eruption; Translations: [Rash and other nonspecific skin eruption] 59-72-3437WilkpxyaAmvni skin disorders (1 source)Rash and other nonspecific skin eruption; Translations: [Rash and other nonspecific skin eruption]65-20-5540GegjtoejFlofl skin disorders (16 sources)Ingrowing great toenail; Translations: [Ingrowing nail]EpisodicOther skin disorders (3 sources)Disorder of right lower extremity; Translations: [Localized swelling, mass and lump, right lower limb]46-76-6036FbjusgpbOjjbn upper respiratory infections (13 sources)Maxillary sinusitis; Translations: [Chronic maxillary sinusitis] 55-32-8916XbpjqwsEjtexcunn by nonmedicinal substances (6 sources)Allergic reaction to bee sting; Translations: [Toxic effect of venom of bees, accidental (unintentional), initial encounter]Onset: 09-22-2022 72-81-9584QevrwervVnxyjens codes; unclassified (7 sources)Family history of osteoporosis; Translations: [Family history of osteoporosis]92-92-6463YkmzbbxsCxijgckd codes; unclassified (2 sources)Family history of osteoporosis; Translations: [Family history of osteoporosis]71-42-7743CobzauguBqwxfvtq codes; unclassified (2 sources)Acquired absence of both cervix and uterus; Translations: [Acquired absence of both cervix and uterus]57-32-4586FwtonyjaHexotniwyzx; intervertebral disc disorders; other back problems (5 sources)Lumbar spondylosis; Translations: [Spondylosis without myelopathy or radiculopathy, lumbar region]24-03-6315KnebosiWxicdmauyzq; intervertebral disc disorders; other back problems (20 sources)Chronic low back pain; Translations: [Chronic low back pain]Onset: 606125-45-0101IwsshcxaHogkblt and strains (9 sources)Sprain of right ankle; Translations: [Sprain of unspecified ligament of right ankle, initial encounter]19-97-9246DsfemyljClgzrsycteg injury; contusion (2 sources)Contusion of right ankle, initial encounter; Translations: [Contusion of left lower leg, initial encounter]Onset: 99-34-8404ShwckzqhUgzuvxriifwf (1 source)Streptococcus agalactiae (organism)88-86-7533Jcrfyxrqudtz (3 sources)L60.0 - Ingrowing nail Past or Other Problems Problem ClassificationProblemDateDocumented DateEpisodic/ChronicDiseases of mouth; excluding dental (8 sources)Other diseases of salivary glands; Translations: [Mass of parotid gland]Onset: 09-13-2021 Resolved: 24-88-9154PqwtcqqkU Codes: Fall (1 source)Unspecified fall, initial encounter; Translations: [UNSPECIFIED FALL INITIAL ENCOUNTER]Onset: 38-88-5273WcnvsowxKsvsjszvlpirr (4 sources)Lymphadenopathy; Translations: [Generalized enlarged lymph nodes] Onset: 09-22-2022 Resolved: 559484-67-4195UnsofxngRancd connective tissue disease (3 sources)Pain in left leg; Translations: [PAIN IN LEFT LEG]Onset: 04-07-2021 EpisodicOther connective tissue disease (4 sources)Pain in limb; Translations: [Pain in unspecified limb]Onset: 09-22-2022 Resolved: 915104-90-2031TdwylxzjBhhhl injuries and conditions due to external causes (4 sources)H/O: injury; Translations: [Personal history of other (healed) physical injury and trauma]Onset: 244316-29-4246VetlbohkJmsvi nervous system disorders (4 sources)Skin sensation disturbance; Translations: [Unspecified disturbances of skin sensation]Onset: 535156-96-4448JuqcyrufWqbvk nervous system disorders (4 sources)Numbness of hand; Translations: [Anesthesia of skin]Onset: 09-22-2022 78-84-3843XloeauvnEemxx non-traumatic joint disorders (4 sources)Pain in left hip; Translations: [PAIN IN LEFT HIP]Onset: 04-18-2021 EpisodicResidual codes; unclassified (4 sources)Acquired absence of cervix and uterus; Translations: [Acquired absence of both cervix and uterus]Onset: 109758-59-3654NqdmhgyiHgkahrle codes; unclassified (4 sources)Difficulty sleeping ; Translations: [Sleep disorder, unspecified] Onset: 023873-43-2177MtvqcqkpWdtlgpdl codes; unclassified (4 sources)Impairment; Translations: [Other general symptoms and signs]Onset: 735947-56-1641FmtroiieZapwxbkau and history of mental health and substance abuse codes (4 sources)Ex-smoker; Translations: [Personal history of nicotine dependence] Onset: 791425-94-0773JtefqqysRoikkgxax-bjlzjis disorders (5 sources)Nicotine dependence, cigarettes, uncomplicated; Translations: [Tobacco dependence syndrome]Onset: 06-29-2017 Resolved: hronic Results Test NameValueInterpretationReference RangeFacilityECH echo transthoracicon 51-48-9655YXS echo transthor[place] [address] Echocardiogram Signed Patient: Deborah Loco MR#: [id number] 612 : 1985 Acct:[id number] Age/Sex: 39 / F ADM Date: 11/28/24 Loc: Room: Type: [facility] Attending Dr: Penelope Garcia APRN, ANALYSIS CONSULTANT-C Ordering Provider: Penelope Garcia APRN, CNP Date of Service: 11/28/24 ECH/ECH echo transthoracic: Q24.9 - Congenital malformation of [...] cm Transcribed By: SCV Performed At: 11/28/24 1456 Signed By: Morenita Hopson MD 11/28/24 2309[facility] Physician GroupUS renal RTon 68-23-3903YK [place] [address] Ultrasound Report Signed Patient: Deborah Loco MR#: [id number] 612 : 1985 Acct:[id number] Age/Sex: 38 / F ADM Date: 05/12/24 Loc: Room: Type: [facility] Attending Dr: Penelope Garcia APRN, NP-C Ordering [...] Whitney Jr., D.OPer05/12/2024 4:24 PM Dictation Location: [place] [address] Tech: Dana Pack Transcribed By: TANA 05/12/24 1624 Dictated By: Mike Whitney Jr, DO 05/12/24 162 Signed By: 05/12/24 1624[facility] Physician GroupBasophils Auto (Bld) [#/Vol]on 39-53-1095Rwgdeqeiz (Bld) [#/Vol]Automated basophil count0.0-0.1FFirelands Regional Medical Center South CampusBasophils/100 WBC Auto (Bld)on 29-29-3405Loptaaznt/100 WBC (Bld)Automated basophil %0.2-2.0[facility] HospitalCholesterol in LDL Calc [Mass/Vol]on 48-03-0469Owkddllrkli in LDL [Mass/Vol]Cholesterol in LDL [Mass/volume] in Serum or Plasma by calculationKettering Memorial HospitalComment on above:<100 mg/dl JLXSCXV313-957 mg/dl NEAR OR ABOVE JMWRPIU649- 159 mg/dl BORDERLINE KOYR474-315 mg/dl HIGH>190 mg/dl VERY HIGHCholesterol in VLDL Calc [Mass/Vol]on 70-85-1310Jwrnjqpgfrk in VLDL [Mass/Vol]Cholesterol in VLDL [Mass/volume] in Serum or Plasma by calculationKettering Memorial HospitalEosinophils/100 WBC Auto (Bld)on 87-64-8959Wvyjlnxfqxs/100 WBC (Bld) Automated eosinophil %0.9-7.0[facility] HospitalErythrocyte distribution width Auto (RBC) [Ratio]on 07-24-6646Zsfmvldhrdv distribution width (RBC) [Ratio]Erythrocyte distribution width [Ratio] by Automated count11.0-15.0 [facility] HospitalEstimated glomerular filtration rate (GFR) non- Americanon 09-19-2505OSN/1.73 sq M.predicted among non-blacks MDRD (S/P/Bld) [Vol rate/Area]Estimated glomerular filtration rate (GFR) non->=60 mL/min/1.73m 2FFirelands Regional Medical Center South CampusGlobulin Calc (S) [Mass/Vol]on 38-52-0803Myukhtnp (S) [Mass/Vol]Serum globulin measurement by calculation (mass/volume)[facility] HospitalHematocrit Auto (Bld) [Volume fraction]on 63-29-5923Icuhabfzlu (Bld) [Volume fraction]Hematocrit [Volume Fraction] of Blood by Automated count36.0-48.0[facility] HospitalHemoglobin [Mass/volume] in Bloodon 24-13-8943Srrumglmeo (Bld) [Mass/Vol] Hemoglobin [Mass/volume] in Blood12.0-16.0[facility] Laboratory - Chemistry and Chemistry - challengeon 83-48-0125Fbvhobr [Mass/Vol] 3.6 g/dL3.4-5.0[facility] HospitalALP [Catalytic activity/Vol]70 U/A92-391OrydnkzzkKettering Memorial HospitalALT [Catalytic activity/Vol]28 U/L 14-59[facility] HospitalAST [Catalytic activity/Vol]17 U/L15-37 [facility] HospitalBilirubin [Mass/Vol]0.3 mg/dL0.2-1.0[facility] HospitalCalcium [Mass/Vol]8.6 mg/dL8.5-10.1FFirelands Regional Medical Center South CampusChloride [Moles/Vol]104 mmol/X97-709KfgjovdejKettering Memorial HospitalCholesterol [Mass/Vol]227 mg/dLHigh<=200[facility] Cholesterol in HDL [Mass/Vol]59 mg/hH02-57TrnrmhsswK[facility]tering Memorial Hospital Comment on above:> or =60 mg/dl - LOW CARDIOVASCULAR RISK<40 mg/dl - HIGH CARDIOVASCULAR RISKCO2 [Moles/Vol]26.5 mmol/L21.0-32.0[facility] HospitalCreatinine [Mass/Vol]1.02 mg/dL0.55-1.02[facility] GFR/1.73 sq M.predicted MDRD (S/P/Bld) [Vol rate/Area]mL/min/{1.73_m2}>=60 mL/min/1.73m 2FFirelands Regional Medical Center South CampusGlucose [Mass/Vol]86 mg/rL96-952 [facility] HospitalPotassium [Moles/Vol]3.6 mmol/L3.5-5.1FFirelands Regional Medical Center South CampusProtein [Mass/Vol]7.4 g/dL6.4-8.2FBlanchard Valley Health System Blanchard Valley Hospitalodium [Moles/Vol]140 mmol/U792-247LwblrrrhoKettering Memorial HospitalTriglyceride [Mass/Vol]165 mg/dLHigh<=150[facility] Urea nitrogen [Mass/Vol]16.0 mg/dL7.0-18.0[facility] HospitalUrea nitrogen/Creatinine [Mass ratio]15.7 mg/mgK[facility] Hospital Laboratory - Hematology and Cell countson 74-05-6711Jggjcoye granulocytes/100 WBC (Bld)0.1 %0.0-0.5FFirelands Regional Medical Center South CampusLeukocytes [#/volume] corrected for nucleated erythrocytes in Blood by Automated counon 42-40-9008FMU corrected for nucl RBC Auto (Bld) [#/Vol]Leukocytes [#/volume] corrected for nucleated erythrocytes in Blood by Automated coun4.0-11.0[facility] HospitalLymphocytes Auto (Bld) [#/Vol]on 67-07-0375Kvedmhdcxdh (Bld) [#/Vol]Lymphocytes [#/volume] in Blood by Automated count1.2-3.8[facility] HospitalLymphocytes/100 WBC Auto (Bld)on 04-30-2024 Lymphocytes/100 WBC (Bld)Lymphocytes/100 leukocytes in Blood by Automated count 20.5-60.0[facility] HospitalH Auto (RBC) [Entitic mass]on 29-08-5145GSC (RBC) [Entitic mass]MCH [Entitic mass] by Automated count26.7-34.0 [facility] HospitalMCHC Auto (RBC) [Mass/Vol]on 08-64-3910UZJQ (RBC) [Mass/Vol]MCHC [Mass/volume] by Automated count29.9-35.2FFirelands Regional Medical Center South CampusMCV Auto (RBC) [Entitic vol]on 15-23-1806WXR (RBC) [Entitic vol] MCV [Entitic volume] by Automated count81.0-99.0[facility] HospitalMonocytes Auto (Bld) [#/Vol]on 91-73-5055Waqdcfrjq (Bld) [#/Vol]Automated blood monocyte count0.3-0.8[facility] HospitalMonocytes/100 WBC Auto (Bld)on 93-47-5613Ojcrgbxxj/100 WBC (Bld)Automated monocyte %1.7-12.0 [facility] HospitalNeutrophils Auto (Bld) [#/Vol]on 04-30-2024 Neutrophils (Bld) [#/Vol]Neutrophils [#/volume] in Blood by Automated count 1.4-6.5FFirelands Regional Medical Center South CampusNeutrophils/100 WBC Auto (Bld)on 62-48-8760Dysiuqkcveh/100 WBC (Bld)Automated neutrophil %43.0-75.0[facility] HospitalNo Panel Informationon 07-62-7826Ewcstbkruun # (Auto)0.1 10 3/uL0.0-0.7FFirelands Regional Medical Center South CampusImmature Granulocyte # (Auto)0.01 10 3/uL0.00-0.03[facility] HospitalPlatelet mean volume Auto (Bld) [Entitic vol]on 86-90-8840Qkbmuimu mean volume (Bld) [Entitic vol]Platelet mean volume [Entitic volume] in Blood by Automated count9.5-13.5FFirelands Regional Medical Center South CampusPlatelets Auto (Bld) [#/Vol]on 92-21-9276Wesnskeef (Bld) [#/Vol]Platelets [#/volume] in Blood by Automated ftaxi340-012AivqqudmrKettering Memorial HospitalRBC Auto (Bld) [#/Vol]on 15-57-0334IVQ (Bld) [#/Vol]Erythrocytes [#/volume] in Blood by Automated count4.20-5.40[facility] Serum or plasma albumin/globulin mass ratioon 58-07-2349Nokrwva/Globulin [Mass ratio]Serum or plasma albumin/globulin mass ratioCincinnati VA Medical Centererum or plasma anion gap determinationon 30-68-0203Jtgbe gap [Moles/Vol] Serum or plasma anion gap determinationCincinnati VA Medical Centererum or plasma total cholesterol/high density lipoprotein (HDL) cholesterol mass lucie 83-05-7014Imouobipltb.total/Cholesterol in HDL [Mass ratio]Serum or plasma total cholesterol/high density lipoprotein (HDL) cholesterol mass ratKettering Memorial HospitalComment on above:3.3 - 4.4 LOW RISK4.4 - 7.1 AVERAGE RISK7.1 - 11.0 MODERATE RISK>11.0 HIGH RISKXR Spine Scoliosis 1 viewon 57-75-1897GG Spine Scoliosis 1 viewExam Date/Time: 08/14/2023 16:31 [...] (Electronic Signature): 08/16/2023 4:27 pm Signed by: Weslye Saenz DO Transcribed by: DELILAH Technologist: MARIELOS Technical Comments Radiation Dose: Ka,r in mGy = na DAP = naNormalTogus Va Medical CenterConsent for Treatmenton 08-14-2023 Consent for [id number]#1.00TIFFSt. Rita'S HospitalPhysician Orderon 90-21-2973Dflmklraj Order [id number]#1.00TIFCoshocton Regional Medical CenterXR Hand - right 3 Viewson 77-89-0635[place], [place] [address] XRay Report Signed Patient: DEBORAH LOCO MR#: [id number] : 1985 Acct:[id number] Age/Sex: 38 / F ADM Date: 07/02/23 Loc: EC Attending Dr: Ozzy Iniguez M.D. Ordering Physician: Ozzy Iniguez M.D. Date of Service: 07/02/23 Procedure(s): XR hand RT min 3V Accession Number(s): [id number] cc: Ozzy Iniguez M.D.; EKTA DANIEL [place] [id number] Patient Name: DEBORAH LOCO MRN: [id number] date: 1985 Sex: F Assigned Patient Location: Current Patient Location: Accession/Order Number: [id number] Exam Date: 07/02/2023 09:16 Report Date: 07/03/2023 06:50 At the request of: OZZY INIGUEZ Procedure: XR hand RT min 3V [...] consistent with patient history. Electronically authenticated by: OZZY GODFREY Date: 07/03/2023 06:50 Dictated By: Ozzy Godfrey M.D. Signed By: 07/03/23 0652 DD/ 0650 TD/TT: Fitness Instructor:TBHRadiology, Radiologist, - 07/05/2023 [place] [address] XRay Report Signed Patient: DEBORAH LOCO MR#: [id number] : 1985 Acct:[id number] Age/Sex: 38 / F ADM Date: 07/02/23 Loc: EC Attending Dr: Ozzy Iniguez M.D. Ordering Physician: Ozzy Iniguez M.D. Date of Service: 07/02/23 Procedure(s): XR hand RT min 3V Accession Number(s): [id number] cc: Ozzy Iniguez M.D.; EKTA DANIEL [place] [id number] Patient Name: DEBORAH LOCO MRN: [id number] date: 1985 Sex: F Assigned Patient Location: Current Patient Location: Accession/Order Number: [id number] Exam Date: 07/02/2023 09:16 Report Date: 07/03/2023 06:50 At the request of: OZZY INIGUEZ Procedure: XR hand RT min 3V [...] consistent with patient history. Electronically authenticated by: OZZY GODFREY Date: 07/03/2023 06:50 Dictated By: Ozzy Godfrey M.D. Signed By: 07/03/23 0652 DD/ 0650 TD/TT: Fitness Instructor: [facility] BASE HOSPITALRosangela HealthcareRadiology Study observation (narrative)[facility] HospitalXR Hand - right 3 ViewsOrdered By: Radiologist Radiology on 41-00-0815NEWW [place] Work Phone: XR ANKLE RT MIN 3 VIEWSon 06-35-1157QO ANKLE RT MIN 3 VIEWSEXAM: XR ANKLE [...] Electronically authenticated by: Santy RO Date: 2021-12-31 22:43[facility] HospitalCT NECK [facility] W CONon 86-01-4370ZT NECK ST W CONEXAMINATION: CT NECK ST [...] neck for additional evaluation. Electronically authenticated by: OZZY GODFREY Date: 2021-09-13 17:01[facility] HospitalXR HIP LT 2 3V W PELVISon 05-11-8028VG HIP LT 2 3V W PELVIS EXAM: [...] Electronically authenticated by: SANNA HOOD Date: 2021-04-18 11:23[facility] Vital Signs Date TimeVital SignValuePerforming BekncjbifKbaxvqyr26-53-5844 13:54-0500Body alhhlm403.1 cmPenelope Gantkandisjodier TEACHER [employer] THE [employer] Work Phone: [phone]53[facility]11-06-2025 13:54-0500 Body mass index (BMI) [Ratio]30.7 kg/e3XjmjktdkPenelope Gantrbacher TE[employer]ER [employer] Work Phone: [phone]11-06-2025 13:54-0500 Body .91 kgPenelope Gantrbacher TEACHER [employer] Work Phone: [phone] [place], [place] 2784211-06-2025 13:54-0500 Diastolic blood hybpforn89 mm[Hg]Penelope Jose [employer] Work Phone: [phone]11-06-2025 13:54-0500 Heart rate72 /minPenelope Gantrbacher TE[employer]ER [employer] Work Phone: [phone]11-06-2025 13:54-0500 Respiratory rate12 /minPenelope Gantrbacher TE[employer]ER [employer] Work Phone: [phone]11-06-2025 13:54-0500 SaO2% (BldA) [Mass fraction]98 %Penelope Jose [employer] Work Phone: [phone] [place], [place] 8251311-06-2025 13:54-0500 Systolic blood prmjubik740 mm[Hg]Penelope Janr TE[employer]ER [employer] Work Phone: [phone]07-29-2025 14:36-0400 Body qhqpha013.1 cmPenelope Gantrbacher TEACHER [employer] Work Phone: [phone]07-29-2025 14:36-0400 Body mass index (BMI) [Ratio]31.2 kg/v6Wozxxinn Maryamrbacher TEACHER [employer] Work Phone: [facility]07-29-2025 14:36-0400 Body voscxegrgza55.6 [degF]Penelope Garcia TE[employer]ER [employer] Work Phone: [facility]07-29-2025 14:36-0400 Body pdektd50.27 kgPenelope Garcia TEACHER [employer] Work Phone: [facility]07-29-2025 14:36-0400 Diastolic blood hkjrynmz55 mm[Hg]Penelope Garcia TEACHER [employer] Work Phone: [facility]07-29-2025 14:36-0400 Heart rate72 /Ant Garcia APRN Work Phone: [phone]07-29-2025 14:36-0400 SaO2% (BldA) [Mass fraction]100 %Penelope Montoyafaiza TE[employer]ER [employer] Work Phone: [facility]07-29-2025 14:36-0400 Systolic blood dxuranxu206 mm[Hg]Penelope Garcia TEACHER [employer] Work Phone: [facility]06-11-2025 10:09-0400 Body gnimlu342.1 cmK[facility] Hospital06-11-2025 10:09-0400Body mass index (BMI) [Ratio]31.8 kg/o4NbbzkdouoK[facility]tering Memorial Hospital06-11-2025 10:090400Body vycvjvrnhob56.4 [degF][facility]06-11-2025 10:090400Body oywpjn58.63 kgK[facility]tering [facility] Hospital06-11-2025 10:09-0400Diastolic blood eokthtuh24 mm[Hg][facility] 09-10-2024 10:09-0400Heart rate79 /minK[facility]tering Memorial Hospital 09-10-2024 10:09-8421TmW7% (BldA) [Mass fraction]100 %[facility]06-11-2025 10:090400Systolic blood mm[Hg][facility]05-05-2025 13:04-0400Body oywhhz428.1 cmPenelope Garcia TEACHER [employer] Work Phone: [phone]05-05-2025 13:04-0400 Body mass index (BMI) [Ratio]31.9 kg/s5LefggrcoPenelope Garcia TEACHER OF [employer] Work Phone: [phone]05-05-2025 13:04-0400 Body .7 [degF]Penelope Garcia TEACHER OF [employer] Work Phone: [phone] [place], [place] 8251305-05-2025 13:04-0400 Body .08 kgPenelope Garcia TEACHER [employer] Work Phone: [phone]05-05-2025 13:04-0400 Heart rate77 /Ant Garcia TEACHER [employer] Work Phone: [phone] [place], [place] 825[address]05-05-2025 13:04-0400 SaO2% (BldA) [Mass fraction]99 %Penelope Garcia TEACHER OF [employer] Work Phone: [phone] [place], [place] 8[address]1301-28-2025 12:59-0500 Body .1 cmK[facility] Hospital01-28-2025 12:59-0500Body zxjjxzalvjn66.4 [degF][facility]01-28-2025 12:59-0500 Diastolic blood uxaeknov62 mm[Hg][facility]01-28-2025 12:59-0500Heart rate80 /minK[facility] Hospital01-28-2025 12:59-7527SoC3% (BldA) [Mass fraction]99 %[facility] 04-29-2024 12:59-0500Systolic blood bdfndold093 mm[Hg][facility]11-01-2024 09:28-0400Body nthfji677.1 cmK[facility] 02-01-2024 09:28-0400Body mass index (BMI) [Ratio]30.9 kg/v4OdofphulrK[facility]tering [facility] Hospital11-01-2024 09:28-0400Body eeszqiegmpv87.8 [degF][facility]11-01-2024 09:040Body rhfekf71.48 kgK[facility] Hospital11-01-2024 09:280400Diastolic blood pvzplytc47 mm[Hg][facility]11-01-2024 09:28-0400Heart rate70 /[facility]11-01-2024 09:286252RvQ5% (BldA) [Mass fraction]98 %[facility]11-01-2024 09:0400Systolic blood yvicwuya925 mm[Hg] [facility]06-27-2024 13:58-0400Body sbmuvn199.1 cm [facility]06-27-2024 13:58-0400Body mass index (BMI) [Ratio]30.4 kg/e3HzuogdixrK[facility]tering [facility] Hospital06-27-2024 13:58-0400Body qdqpiq63.06 [facility]06-27-2024 13:58-0400Diastolic blood cczppcow78 mm[Hg][facility]06-27-2024 13:58-0400 Heart rate70 /[facility]06-27-2024 13:58-0400 Respiratory rate12 /[facility]06-27-2024 13:58-0400 Systolic blood ejulrbjp720 mm[Hg][facility]05-06-2024 15:26-0400Body ahukiu610.1 cmK[facility] Hospital05-06-2024 15:26-0400Body mass index (BMI) [Ratio]29.7 kg/d6JptmqqxbiK[facility] Hospital05-06-2024 15:26-0400Body .5 [degF][facility]05-06-2024 15:26-0400Body jykjts29.19 [facility] 08-06-2023 15:26-0400Diastolic blood wxkhedpa10 mm[Hg][facility]05-06-2024 15:26-0400Heart rate71 /[facility] 08-06-2023 15:26-0400Respiratory rate18 /[facility] 08-06-2023 15:26-2518RsM3% (BldA) [Mass fraction]98 %[facility]05-06-2024 15:26-0400Systolic blood abewvyid453 mm[Hg][facility]03-20-2024 14:49-0400Body iryvda463.1 cmK[facility] Hospital03-20-2024 14:49-0400Body mass index (BMI) [Ratio]29.7 kg/j6MrmmyivvkK[facility]tering [facility] Hospital03-20-2024 14:49-0400Body jmbhex03.19 kgK[facility] Hospital03-20-2024 14:49-0400Diastolic blood ffmgmnqo35 mm[Hg] [facility]03-20-2024 14:49-0400Heart rate78 /[facility]03-20-2024 14:49-1811PuJ5% (BldA) [Mass fraction]98 % [facility]03-20-2024 14:49-0400Systolic blood pgayujkg459 mm[Hg][facility] Encounters Encounter DateEncounter TypeCare ProviderFacilityStart: 02-05-2025 End: 98-99-9475wdnznizfvwDzezkcwl Rohrbacher APRN Work Phone: -[facility] Hospitaltart: 02-05-2025 End: 17-44-8784Tfcrten encounter procedurePenelope Garcia APRN [facility] Work Phone: Start: 02-05-2025 End: 95-72-6251Tdctavh encounter statusPenelope Garcia APRN [facility] Hospitaltart: 52-28-7608Sbg-patient / Non-visitCatherine Shaquille [facility] Work Phone: Start: 01-12-2025 End: 11-09-7920xsyggujltsNkfzfqr Patric Lipscomb MDFacility:[facility] [place] Start: 11-28-2024 End: 26-98-5679Cnifuhh encounter procedurePenelope Garcia APRN [employer] PROFESSOR -Electrodiagnostics Work Phone: Start: 11-28-2024 End: 05-46-2959mhwgxoajevVxtankdi Brookjodiefaiza SCHULTZ Work Phone: [facility] Work Phone: Start: 62-02-6907Ayr-patient / Non-visitLinda Emiliana BENAVIDEZ-[facility] Work Phone: Start: 10-28-2024 End: 13-56-3559jvwddsgyqtZifwnovz Rohrbjodiefaiza SCHULTZ Work Phone: [facility] Work Phone: Start: 10-28-2024 End: 16-99-7001Khdkttq encounter procedurePenelope Garcia APRN [facility] Work Phone: Start: 10-09-2024 End: 31-10-1573Nklxws flowsheetEmviolette Hernandez MD Work Phone: noms SWS DERMStart: 10-09-2024 End: 52-97-3307Iqqlbt flowsheetEmviolette Hernandez MD Work Phone: [facility] SWS DERMStart: 10-09-2024 End: 93-71-9439fwzyilajsaFOUZM Jeremie ORTIZINot AvailableStart: 10-09-2024 End: 95-96-5774Ijaqrm outpatient visit 15 minutesEmviolette Hernandez MD Work Phone: noms SWS DERMComment on above:Other seborrheic dermatitis (Primary Dx)Start: 09-10-2024 End: 26-87-0737vodyewhxkoKlsizyoksSCCI Hospital [facility] Work Phone: Start: 09-10-2024 End: 99-62-5142Aeksuie encounter procedureEricabreckenridgerosangela Physician GroupMercy Hospital Work Phone: Start: 09-08-2024 End: 42-16-0425yebzcntsisSwvsttd Vytautas Giedraitis MDFacility:[facility] [place] Start: 08-04-2024 End: 29-86-0375dglwsadqxpTxifodtx Rohrbacher TEACHER [employer] Work Phone: [facility] Work Phone: Start: 08-04-2024 End: 61-03-2253Wfvkceo encounter procedureJennifer Rohrbacher TEACHER OF [employer] Work Phone: [facility]ician [facility] Work Phone: Start: 07-28-2024 End: 64-98-7849bprvqqlpfmRxephlf Vytautas Giedraitis MDFacility:[facility] [place] Start: 06-23-2024 End: 75-90-7896annipistdzGnkaumd Vytautas Giedraitis MDFacility:[facility] [place] Start: 05-26-2024 End: 37-74-6439hjjbpswqsxHevoxrn Vytautas Giedraitis MDFacility:[facility] Start: 05-12-2024 End: 11-32-3268Npohikv encounter procedureJennifer Rohrbacher TEACHER [employer] Work Phone: [facility] [place] Work Phone: Start: 05-12-2024 End: 98-31-6964palwudbabfGqotjfhi Rohrbacher TEACHER [employer] Work Phone: [facility] Work Phone: Start: 62-74-4563Uir-patient / Non-visitJennifer Rohrbacher TEACHER OF [employer] IMP[employer]IRED Work Phone: [facility] [employer] Work Phone: Start: 51-06-9053Irscdou encounter statusCincinnati VA Medical Centertart: 04-29-2024 End: 87-71-8853sjfjeozdgmKwyclhyktSCCI Hospital [facility] Work Phone: Start: 04-29-2024 End: 68-97-0170Gdhpjxscf for general adult medical examination without abnormal findingsCincinnati VA Medical Centertart: 04-29-2024 End: 33-44-3786Drebioz encounter procedureNovant Health Medical [facility] Physician GroupMercy Hospital Work Phone: Start: 04-28-2024 End: 83-60-4594qfgylmdtlxFyffgeq Vytautas Giedraitis MDFacility:[facility] [place] Start: 55-63-6163Uqw-patient / Non-visitFirwarren memorial hospital Physician GroupMercy Hospital Work Phone: Start: 03-10-2024 End: 52-71-8212wvefiedmfnNfuaijy Vytautas Giedraitis MDFacility:PM Dex Start: 02-11-2024 End: 85-28-8432oljwiqdjzcRnutbmg Vytautas Giedraitis MDFacility:PM [facility] Start: 02-01-2024 End: 21-29-1866iwxayrqtokTsshnmozoSCCI Hospital [facility] Work Phone: Start: 02-01-2024 End: 65-65-6374Qoadzeh encounter procedureNov[facility] Physician [facility] Work Phone: Start: 09-27-2023 End: 27-25-9937dfycykycjiTxvxmytyqSCCI Hospital [facility] Work Phone: Start: 09-27-2023 End: 61-01-9344Mcusuaw encounter procedureNovant Health Medical [facility] Physician [facility] Work Phone: Start: 08-14-2023 End: 70-12-4233ywtvnjhpjaODHZOWCC A ROHRBACHERFacility:FTMCStart: 08-14-2023 End: 50-01-4696Jhbhklj encounter procedurePENELOPE GARCIA [facility] Start: 08-06-2023 End: 95-87-2163hxcmxgqgpdSutheqzseSCCI Hospital [facility] Work Phone: Start: 08-06-2023 End: 95-05-6272Zmzkdfq encounter procedureNovant Health Medical Park Hospital Physician GroupMercy Hospital Work Phone: Start: 07-03-2023 End: 70-94-1372Aleabqgsb Result EncounterGeneric External Data ProviderNOMS External Department UnsolicitedStart: 07-03-2023 End: 07-49-4861Yysmvuwwn Result EncounterGeneric External Data ProviderNOMS External Department UnsolicitedStart: 06-20-2023 End: 10-76-9954xiqtnonroeYytgqexmxHarrison [facility] Hospital Work Phone: Start: 06-20-2023 End: 80-78-1191Smkzrbq encounter procedureNovant Health Medical [facility] Physician [facility] Work Phone: Start: 01-09-2022 End: 76-37-2447lftzsruqxwBU EKTA Gomes HEMMERFacility:I7Cdcfe: 12-31-2021 End: 01-83-7385znoevjrnlxYXEDJ PARKERFacility:Z3Zkxle: 09-13-2021 End: 70-24-4623byobqlpqedJX J CARLOS TIMMISFacility:J4Clhcv: 04-18-2021 End: 88-16-4178uhpsrcaxedLQ EKTA Gomes HEMMERFacility:W0Mexjp: 04-07-2021 End: 75-31-4216mdigmplezwIG DOCTOR MISCFacility:H1 Procedures DateProcedureProcedure DetailPerforming ClinicianStart: 05-12-2024 Ultrasonography of right kidneyJennifer Rohrbacher TE[employer]ER [employer] Work Phone: Start: 82-43-1568Mwmnv hand minimum 3 viewsGeneric External Data ProviderStart: 02-18-2019 End: 05-23-2023H/O: hysterectomyHistory of hysterectomySaige Hernandez MD Work Phone: H/O: hysterectomyHistory of hysterectomyHistory of decompression of median nerveHistory of carpal tunnel surgery of right wrist Ligation of fallopian tubeJENNIFER ROHRBACHER right forearmJENNIFER ROHRBACHER Plan of Treatment DateCare ActivityDetailAuthorStart: 10-13-2025 End: 35-11-5358Cqfozgb encounter procedureNOMS SWS DERMStart: 12-01-2024 Influenza vaccinationInfluenza Vaccine (#1)NOMS HealthcareStart: 10-28-2024 [facility] Work Phone: Start: 54-82-3355Laiozpy referralVeterans Health Administration Work Phone: Start: 30-00-3584Jgvthnc referralVeterans Health Administration Work Phone: Start: 83-16-2621Kckssty [facility] Work Phone: Comprehensive metabolic 2000 panel - Serum or Plasma [facility] HospitalDXA Skeletal system.axial Views for bone densityKettering Memorial HospitalPatient EducationLow back pain in adults [facility] Work Phone: Patient referralVeterans Health Administration Work Phone: US ExtremityK[facility]tering Memorial HospitalUS Heart TransthoracicK[facility]tering Memorial HospitalUS Kidney - bilateralViera Hospital Immunizations Immunization DateImmunizationNotesCare KxdarkntWehvbunm24-15-4773buosnrheby, tetanus toxoids and pertussis vaccineSaige Hernandez MD Work Phone: [facility] HospitalIjgprhyjzb93-90-6396zmygvxqub B vaccine, pediatric or pediatric/adolescent dosageEmviolette Hernandez MD Work Phone: [facility] Payers DatePayer CategoryPayerPolicy [id number] Private Health InsuranceCARESOOKLAHOMA [facility] [place] MEDICAID Member Subscriber Plan / Payer (Effective 2021-Present) Name: Deborah Loco Relation to Subscriber: Self Name: Deborah Loco Payer ID: Not on file Group ID: [id number] Type: Not on file Address: [facility] [address] [place] [id number] [id number] [id number] [id number] [id number] 2.16840.1.316322.3.579.2.81162-63-5586Judxddx7937623 2.16840.1.312709.3.579.2.40271-08-1962Tsouulz3455315 2.16840.1.718512.3.579.2.58990-93-3554Avdbrwd38496638 2.16840.1.087386.3.579.2.26833-71-0134Ecdbsph02600098 2.16840.1.376915.3.579.2.911408-46-6582Ckmnsik173771481 2.16840.1.701462.3.579.2.75011-55-9674Ijeqxlx268381771 2.16840.1.207059.3.579.2.58001-92-2807Ucwamuy173939302 2.16840.1.139211.3.579.2.96512-43-2846Jfvedrz408305592 2.16840.1.607141.3.579.2.02971-10-5465Ddcodoy728061467 2.16840.1.760289.3.579.2.22734-08-7062Nfuiosg367642099 2.16840.1.561557.3.579.2.60479-50-0885Zqmdhac978448908 2.16.840.1.150155.3.579.2.13843-78-4499Wyhcptg139774607 2.16.840.1.559958.3.579.2.196 [id number] 8402676h-9n21-224v-q099-8e470g449oc5Vjpilhb80140592 2.16.840.1.380489.3.579.2.069Vhobcpr27719528 2..840.1.233350.3.579.2.531 Social History DateTypeDetailFacilityStart: 65-53-8789Hpreqyd smoking status NHISNever smoked tobacco (finding)[facility] Centertart: [id number] Assigned At BirthFeOhioHealth Pickerington Methodist HospitalTobacco smoking statusProMedica Fostoria Community Hospitaltart: 02-01-2024 End: 05-94-4455Mvqojgp smoking status NHISEx-smoker (finding)[facility] Centertart: 04-29-2024 End: 78-10-4574LsrZqdytz (finding)[facility] End: 71-34-2822Jjybhmi of tobacco useCurrent smokerNOMS Healthcare End: 26-33-9484Cnuhimf of tobacco useCigarette SmokerNOMS HealthcareStart: 44-54-1502Xluzcfx use and exposureSmokeless tobacco non-userNOMS Healthcare Start: 06-06-2023 End: 86-56-0810Jpmgqykxn beverage intakeLifetime non-drinker (finding)[facility] HealthcareStart: 10-10-2023 End: 51-10-0674Vgvnnbs of Social functionNOMS HealthcareStart: 10-10-2023 End: 10-22-4472Tnepczd use panelNOMS HealthcareStart: 94-42-4386Rhmfatd Comment Last smoked : > 1 monthNOMS HealthcareStart: 03-77-9104Xfb assigned at birthNot on fileMercy McCune-Brooks HospitalStart: 18-27-0606MdoZchjvkALGT Healthcare Clinical Notes 04-07-2021 to 02-05-2025 Note Date & RcfcTqpwOhwsrkut02-20-0299 Hospital Discharge instructionsAmbulatory Orders* Referral to Podiatry Time Frame: 02/05/25, Location: None [facility] Work Phone: 1(316) 365-563207-29-2025 Hospital Discharge instructionsAmbulatory Orders* Referral to Podiatry Time Frame: 10/28/24, Location: None Selected [facility] Work Phone: 1(544) 864-946507-10-2025 History of Present illness Narrative* Saige Hernandez [...] Next Visit: 1 year documented in this [facility]06-11-2025 Evaluation note* Diagnosis Onset Date Resolution Status Admit Date Cervical stenosis of spine acuteJune 2024 10:07amLumbar spondylosisacuteJune 2024 10:07am Ingrowing left great toenailacuteJuly 2024 2:33pmIngrowing right great toenailacuteJuly 2024 2:33pmLocalized swelling, mass and lump, right lower limbacuteJuly 2024 2:33pm [facility] Work Phone: 1(874) 672-689205-05-2025 Evaluation note* Diagnosis Onset Date Resolution Status Admit Date Anxiety acuteMay 2024 1:00pmArthritisacuteMay 2024 1:00pmChronic lower back painacuteMay 2024 1:00pmDeformity of right lower extremityacuteMay 2024 1:00pmDepressionacuteMay 2024 1:00pmGERD (gastroesophageal reflux disease)acuteMay 2024 1:00pmStress headachesacuteMay 2024 1:00pm [facility] Work Phone: 1(900) 236-667005-05-2025 Evaluation note* Diagnosis Onset Date Resolution Status Admit Date Anxiety acuteMay 2024 1:00pmArthritisacuteMay 2024 1:00pmChronic lower back painacuteMay 2024 1:00pmDeformity of right lower extremityacuteMay 2024 1:00pmDepressionacuteMay 2024 1:00pmGERD (gastroesophageal reflux disease)acuteMay 2024 1:00pmStress headachesacuteMay 2024 1:00pm Cervical stenosis of spineacuteJun2024 10:07amLumbar spondylosisacute La 2024 10:07amIngrowing left great toenailacuteJuly 2024 2:33pm Ingrowing right great toenailacuteJuly 2024 2:33pm [facility] Work Phone: 1(735) 554-625602-10-2025 Radiology Diagnostic [place] [address] Ultrasound Report Signed Patient: Deborah Loco MR#: [id number] : 1985 Acct:[id number] Age/Sex: 38 / F ADM Date: 5 Loc: Room: Type: [facility] Attending Dr: PRATIK Andino APRN Ordering Provider: Penelope Garcia APRN, CNP Date [...] Whitney Jr., Aguilar05/12/2024 4:24 PM Dictation Location: [place] [address] Tech: Dana Pack Transcribed By: TANA 05/12/241623 Dictated By: Mike Whitney Jr, DO 05/12/241622 Signed By: 05/12/241623 [facility]01-28-2025 Evaluation note* Diagnosis Onset Date Resolution Status Admit Date Family history of osteoporosis acuteJanuary 2024 12:56pmHistory of hysterectomyacuteJanuary 2024 12:56pmKidney anomaly, congenitalacuteJanuary 2024 12:56pmScreening for osteoporosisacuteJanuary 2024 12:56pmSprain of right ankleacuteJanuary 2024 12:56pm [facility] Work Phone: 1(921) 632-536211-01-2024 Evaluation note* Diagnosis Onset Date Resolution Status Admit Date Anxiety acuteNovember 2023 9:21amArthritisacuteNovember 2023 9:21amChronic lower back painacuteNovember 2023 9:21amDeformity of right lower extremity acuteNovember 2023 9:21amDepressionacuteNovember 2023 9:21amGERD (gastroesophageal reflux disease)acuteNovember 2023 9:21amStress headaches acuteNovember 2023 9:21amFamily history of osteoporosisacuteJanuary 2024 12:56pmHistory of hysterectomyacuteJanuary 2024 12:56pmKidney anomaly, congenitalacuteJanuary 2024 12:56pmScreening for osteoporosis acuteJanuary 2024 12:56pmSprain of right ankleacuteJanuary 2024 12:56pmWellness examinationacuteJanuary 2024 12:56pm [facility] Work Phone: 1(699) 559-187703-20-2024 Hospital Discharge instructionsAmbulatory Orders* Referral to Orthopedic Surgery Time Frame: 06/20/23, Location: None Selected [facility] Work Phone: 1(304) 138-333510-10-2022 NotePROCEDURE: XR ANKLE RT MIN 3 VIEWS HISTORY: Contusion of right ankle ; acute anterior right ankle pain since injury 16 days ago COMPARISON: XR ankle right 12/31/2021 FINDINGS: BONES:No fracture, acute abnormality, or significant arthropathy. SOFT TISSUES:No visible soft tissue swelling. EFFUSION:None visible. OTHER: Negative. IMPRESSION: 1. Normal examination. Electronically authenticated by: OZZY GODFREY Date: 2022-01-09 16:12[facility] NotePROCEDURE: XR FEMUR LT COMPARISON: None. HISTORY: Unspecified fall FINDINGS: BONES:No fracture, acute abnormality, or significant arthropathy. SOFT TISSUES:Negative. No visible soft tissue swelling. EFFUSION:None visible. OTHER: Negative. IMPRESSION: No acute abnormality Electronically authenticated by: TEODORO WHITLEY Date: 2021-04-07 09:14[facility] HospitalEvaluation + Plan note No data available for this section [facility]Evaluation [facility]* Diagnosis Onset Date Resolution Status Anxiety acuteAsthmaacuteDepressionacuteIrregular heart beatacuteMaxillary sinusitisacute ScoliosisacuteTrigger finger of right handacute [facility] Work Phone: Evaluation note* Diagnosis Onset Date Resolution Status Anxiety acuteAsthmaacuteDepressionacuteIrregular heart beatacuteMaxillary sinusitisacute ScoliosisacuteTrigger finger of right handacuteCongenital heart defectacute Irregular heart beatacuteScoliosisacute [facility] Work Phone: Evaluation note* Diagnosis Onset Date Resolution Status Congenital heart defect acuteDeformity of right lower extremityacuteIrregular heart beatacuteScoliosis acuteStress headachesacuteTrigger finger of right handacuteRashacute [facility] Work Phone: Evaluation note* Diagnosis Onset Date Resolution Status Anxiety acuteChronic lower back painacuteDeformity of right lower extremityacute DepressionacuteGERD (gastroesophageal reflux disease)acuteStress headachesacute [facility] Work Phone: Evaluation note* Diagnosis Onset Date Resolution Status Admit Date Anxiety acuteMay 2024 1:00pmArthritisacuteMay 2024 1:00pmChronic lower back painacuteMay 2024 1:00pmDeformity of right lower extremityacuteMay 2024 1:00pmDepressionacuteMay 2024 1:00pmGERD (gastroesophageal reflux disease)acuteMay 2024 1:00pmStress headachesacuteMay 2024 1:00pm [facility] Work Phone: Evaluation note* Diagnosis Other seborrheic dermatitis- Primary documented in this encounter [facility] HealthcareEvaluation note* Diagnosis Onset Date Resolution Status Admit Date Anxiety acuteNovember 2024 1:54pmArthritisacuteNovember 2024 1:54pmChronic lower back painacuteNovember 2024 1:54pmDeformity of right lower extremity acuteNovember 2024 1:54pmDepressionacuteNovember 2024 1:54pmGERD (gastroesophageal reflux disease)acuteNovember 2024 1:54pmIngrowing left great toenailacuteNovember 2024 1:54pmIngrowing right great toenailacute November 2024 1:54pmStress headachesacuteNovember 2024 1:54pmWellness examinationacuteNovember 6th, 2025 1:54pm [facility] Work Phone: Hospital Discharge instructions No data available for this section [facility]Hospital Discharge instructionsAmbulatory Orders* Referral to Pain Management Time Frame: 02/01/24, Location: None [facility] Work Phone: Hospital Discharge instructionsAmbulatory Orders* Referral to Podiatry Time Frame: 04/29/24, Location: None [facility] Work Phone: Progress note No data available for this section [facility] CampusReason for referral (narrative)No reason for referral information availablePromedica Bay [facility] Hospital Work Phone: Summary Purpose Family History Relationship Condition Age at Onset Recorded Date/T donna Not Specified Seizure Unknown Not SpecifiedDiabetes mellitusUnknownHypertensionUnknownAnxietyUnknownDepression Unknown Relationship Condition Age at Onset Recorded Date/T donna Not Specified Seizure Unknown motherDiabetes mellitusUnknownHypertensionUnknownAnxietyUnknownDepressionUnknown Advance Directives Advance Directive Response Recorded Date/ [...] right foot injury April 29, 025 12:56pm Reason for Visit Admit Date [...] right lower limb October 28, 2024 2:33pm Chief Complaint Admit Date Q24.9 November 28, 2024 2: 47pm Amb Documentation February 02, 2025 2 :25pm 6 mo f/u February 05, 2025 1 :54pm Reason for Visit Admit Date Anxiety February 05, 2025 1 :54pm Arthritis February 05, 2025 1 :54pm Chronic lower back pain February 05 1:54pm Deformity of right lower extremity Novem 2024 1:54pm Depression February 05, 2025 1 :54pm GERD (gastroesophageal reflux disease) N ov2024 1:54pm Ingrowing left great toenail January 1:54pm Ingrowing right great toenail February 052024 1:54pm Stress headaches February 05, 2025 1 :54pm Wellness examination February 05, 2025 1:54pm Additional Source Comments INFORMATION SOURCE (unrecogn ized section and content) DATE CREATED AUTHOR 01/10/2022 [facility] DATE CREATED AUTHOR AUTHOR'S BALDO ATBRENDON 08/16/2023 [facility] DATE CREATED AUTHOR AUTHOR'S ORGANIZ ATION 10/13/2024 [facility] EPIC DATE CREATED AUTHOR AUTHOR'S ORGANIZ ATION 01/05/2025 [facility] DATE CREATED AUTHOR AUTHOR'S ORGANIZ ATION 01/17/2025 [facility] Care Teams (unrecognized sec tion and content) Team Status: Active Member Role Status Dates Penelope Garcia APRN ANALYSIS CONSULTANT-C Primary Care Provider Active Team Status: Inactive Member Role Status Dates Penelope Garcia APRN ANALYSIS CONSULTANT-C Primary Care Provider, Attending Provider Active Start: June 20, 2023 End: June 20, 2023 Team Status: Inactive Member Role Status Dates Penelope Garcia APRN ANALYSIS CONSULTANT-C Primary Care Provider, Attending Provider Active Start: August 06, 2023 End: August 06, 2023 Team Status: Inactive Member Role Status Dates Penelope Garcia APRN ANALYSIS CONSULTANT-C Primary Care Provider, Attending Provider Active Start: September 27, 2023 End: September 27, 2023 Team Status: Inactive Member Role Status Dates Penelope Garcia APRN ANALYSIS CONSULTANT-C Primary Care Provider, Attending Provider Active Start: February 01, 2024 End: February 01, 2024 Team Status: Active Member Role Status Dates Penelope Garcia APRN ANALYSIS CONSULTANT-C Primary Care Provider Active Start: April Alicia Metcalfending ProviderActiveStart: April 22, 2024 Team Status: Inactive Member Role Status Dates Penelope Garcia APRN ANALYSIS CONSULTANT-C Primary Care Provider, Attending Provider Active Start: April 29, 2024 End: April 29, 2024 Team Status: Active Member Role Status Dates Penelope Garcia APRN ANALYSIS CONSULTANT-C Primary Care Provider, Attending Provider Active Start: April 30, 2024 Team Status: Inactive Member Role Status Dates Penelope Garcia APRN ANALYSIS CONSULTANT-C Primary Care Provider, Attending Provider Active Start: May 12, 2024 End: May 12, 2024 Team Status: Inactive Member Role Status Dates Penelope Garcia APRN ANALYSIS CONSULTANT-C Primary Care Provider, Attending Provider Active Start: August 04, 2024 End: August 04, 2024 Team Status: Inactive Member Role Status Dates Penelope Garcia APRN ANALYSIS CONSULTANT-C Primary Care Provider, Attending Provider Active Start: September 10, 2024 End: September 10, 2024Team MemberRelationshipSpecialtyStart [place] [address] [place] [id number] PCP - [facility]10/03/23 Ce Reyes MD [address] [facility] [address] [place] [address] [facility]/24Team MemberRelationshipSpecialtyStart DateEnd Date Penelope Garcia NP [address] [place] [address] [facility]10/03/23 eC Reyes MD [address] [facility] [address] [place] [address] [facility]04[facility]/24 Team Status: Inactive Member Role Status Dates Penelope Garcia APRN ANALYSIS CONSULTANT-C Primary Care Provider Active Start: August 04, 2024 End: August 04, 2024Penelope Garcia APRN ANALYSIS CONSULTANT-CAttending ProviderActiveStart: August 04, 2024 End: August 04, 2024 Team Status: Inactive Member Role Status Dates Penelope Garcia APRN ANALYSIS CONSULTANT-C Primary Care Provider Active Start: September 10, 2024 End: September 10, 2024Penelope Garcia APRN ANALYSIS CONSULTANT-CAttenkarsten ProviderActive Start: September 10, 2024 End: September 10, 2024 Team Status: Inactive Member Role Status Dates Penelope Garcia APRN ANALYSIS CONSULTANT-C Primary Care Provider Active Start: October 28, 2024 End: October 28, 2024Penelope Garcia APRN ANALYSIS CONSULTANT-CAttending ProviderActive Start: October 28, 2024 End: October 28, 2024 Team Status: Inactive Member Role Status Dates Penelope Garcia APRN ANALYSIS CONSULTANT-C Primary Care Provider Active Start: November 28, 2024 End: November 28, 2024Penelope Garcia APRN ANALYSIS CONSULTANT-CAttending ProviderActive Start: November 28, 2024 End: November 28, 2024Team MemberRelationshipSpecialtyStart DateEnd Date Ekta Daniel PA [address] [facility] [address] [place] [address] PCP - [facility]07/02/2311 Penelope Garcia NP [facility] [place] [address] PCP - [facility]10/03/23 Ce Reyes MD [address] [facility] [address] [place] [address] PCP - [facility]04/02/24 Team Status: Active Member Role/Relationship Status Dates Penelope Garcia APRN ANALYSIS CONSULTANT-C Primary Care Provider Active Team Status: Active Member Role/Relationship Status Dates Penelope Garcia APRN ANALYSIS CONSULTANT-C Primary Care Provider Active Start: November 28, 2024 Penelope Garcia APRN ANALYSIS CONSULTANT-COther ProviderActiveStart: November 28, 2024 Morenita Hopson MDAttending ProviderActiveStart: November 28, 2024 Team Status: Active Member Role/Relationship Status Dates Penelope Garcia APRN ANALYSIS CONSULTANT-C Primary Care Provider Active Start: January Khadijah Corbin CMAAttsharron ProviderActiveStart: February 02, 2025 Team Status: Inactive Member Role/Relationship Status Dates Penelope Garcia APRN ANALYSIS CONSULTANT-C Primary Care Provider Active Start: January End: February 05, 2025Penelope Garcia APRN ANALYSIS CONSULTANT-CAttending ProviderActive Start: February 05, 2025 End: February 05, 2025 Goals (unrecognized section and content) Goals may [...] BE BASED ON THE PRIMARY CLINICAL RECORDS. [facility] [employer] [facility]. provides no warranty or guarantee of the accuracy or completeness of information in this document.
--- NOTE | 2025-02-19 13:56 | PM.CN ---
Consult Note: HPI Data of Consult Patient: known to practice within the last 3 years Requesting Physician: Anna Stroud NP Primary Care Provider: KARIN MALONE Family Provider: CASH DANIEL Consult Narrative Reason for consult: neck pain Narrative: Yanci owen pleasant 39 year old female with chronic neck and back pain unresponsive to > 6 weeks of PT/HEP, heat, ice, tylenol, NSAIDs presents for evaluation. noting pain 6/10 pressure stabbing increasing to 10/10 with standing, walking, lifting arms, shower, activity, sleep, and housework. utilizing baclofen PRN, tylenol, motrin, and diclofenac gel PRN with benefit, denies side effects. grant falls or injury since last visit. over the last week has had moderate to severe low back pain without injury/cause, utilizing heat and ice as well as zynex back brace with minimal relief. denies numbmess, tingling, weakness, loss of bowel/bladder. cc:: CC: Anna Stroud NP Review of Systems ROS Musculoskeletal Reports: back pain, neck pain and joint pain; Denies: extremity pain PFSH PFSH Medical History Osteoarthritis ?M19.90 - Unspecified osteoarthritis, unspecified site (ICD-10) Carpal tunnel syndrome ?G56.00 - Carpal tunnel syndrome, unspecified upper limb (ICD-10) Acid reflux ?K21.9 - Gastro-esophageal reflux disease without esophagitis (ICD-10) Asthma ?J45.909 - Unspecified asthma, uncomplicated (ICD-10) Heart murmur ?R01.1 - Cardiac murmur, unspecified (ICD-10) Irregular heartbeat ?I49.9 - Cardiac arrhythmia, unspecified (ICD-10) Surgical History History of carpal tunnel release ?Z98.890 - Other specified postprocedural states (ICD-10) History of hysterectomy ?Z90.710 - Acquired absence of both cervix and uterus (ICD-10) History of tubal ligation ?Z98.51 - Tubal ligation status (ICD-10) History of surgery on arm ?Z98.890 - Other specified postprocedural states (ICD-10) Social History Smoking status: Former smoker Little interest or pleasure in doing things: not at all Feeling down, depressed, or hopeless: not at all Meds Home Medications and Allergies Home Medications ?Medication ?Instructions ?Recorded ?Confirmed ?Type albuterol sulfate 90 mcg/actuation 2 puff inhalation Q6H PRN wheezing 11/15/22 01/12/25 History aerosol inhaler ciclopirox 0.77 % topical cream 1 applic topical Q12H 11/15/22 01/12/25 History diclofenac sodium 1 % topical gel 2 g topical QID 11/15/22 01/12/25 History ciclopirox 1 % shampoo 5 ml topical QWEEK 04/16/23 01/12/25 History epinephrine 0.3 mg/0.3 mL 0.3 mg (0.3 mL) IM ONCE PRN 10/01/23 01/12/25 Rx injection, auto-injector allergic reaction #2 ea famotidine 20 mg tablet (Pepcid) 20 mg PO BID #10 tabs 10/01/23 01/12/25 Rx aripiprazole 2 mg tablet 2 mg PO DAILY 02/11/24 01/12/25 History ibuprofen 800 mg tablet mg 09/08/24 History Allergies Allergy/AdvReac Type Severity Reaction Status Date / Time Penicillins Allergy Severe Rash Verified 01/12/25 08:14 tramadol Allergy Severe Swelling Verified 01/12/25 08:14 of Lip/Tongue/Throat Pertussis Vaccines Allergy Mild Unknown Verified 01/12/25 08:14 prednisone Allergy Unknown Unknown Verified 01/12/25 08:14 spinach Allergy Hives Verified 01/12/25 08:14 bees AdvReac Mild sob Uncoded 01/12/25 08:14 Exam Constitutional Documenting provider has reviewed patient's vital signs: yes Common normals: no apparent distress, oriented x3 and alert General appearance: cooperative HENMT Common normals: normocephalic, hearing grossly normal bilaterally and moist oral mucous membranes Head and scalp: normocephalic Eye Common normals: PERRL Pupil: PERRL Neck & C-Spine Common normals: full ROM General: normal visual inspection Cervical spine: cervical ROM abnormal rotation to the left decreased and pain with cervical ROM Chest Common normals: inspection of chest normal Respiratory Common normals: normal respiratory effort, no retractions and no use of accessory muscles Back & Pelvis Lumbar spine/lower back: ROM limited, pain with ROM, straight leg raise positive right and straight leg raise positive left Other: sensation intact BLE strength 5/5 in BLE Neuro Common normals: oriented x3 Sensorium/orientation: alert Psych Common normals: mental status grossly normal, thought process normal, cooperative, affect normal, speech normal and activity/motor behavior normal Speech: normal speech Thought process: normal thought process Results Additional Findings Additional findings: If on a controlled substance or opioids, I have checked an [place] report on this patient and there are no aberrancies noted in the prescribing history.??If on a controlled substance or opioid a drug screen was completed and reviewed within the last year, and if there has not been a drug screen completed we ordered one today to monitor higher risk, state monitored pain medication use. As part of providing excellent, safe, comprehensive care, the following was completed at our patient's visit: 1. A medication reconciliation and review to ensure accurate knowledge of current/active medications, including asking our patients to inform us about any fpkw-ely-eakneuv medications or herbal remedies/nutritional supplements/alternative remedies. 2. A review to specifically ensure our patients have had annual screening for screening for depression, screening for tobacco use, and screening for unhealthy alcohol use. For concerning screenings had a discussion with the patient, provided patient education, and recommended follow-up with primary care provider when appropriate. If patient noted with a risk of falling, they received education on strength, gait, and balance training to prevent future risk of falling. Portions of this note may have been carried over from the previous visit and updated as appropriate. Please note this office utilizes paper charting in addition to the electronic medical record. A list of current medications, vitals, and PMH is available there as the clinical staff outside of myself do not have access to [employer] charting during the clinic day operations. As part of providing quality comprehensive care the current medications, vitals, and PMH were reviewed in the paper chart. Assessment and Plan Assessment and Plan (1) Acute low back pain: (2) Cervical radiculopathy: Assessment and Plan: significant improvement on exam (3) Lumbar spondylosis: (4) Cervical spondylosis: (5) Chronic pain syndrome: Plan The patient has had over 3 months of moderate to severe neck and low back pain with functional impairment and inadequate response to conservative care including NSAIDS (unless there are contraindication such as concurrent blood thinners), multiple oral or topical pain medications, and home exercise program/physical therapy.? Patient has completed >6 weeks of guided home exercise program and/or formal physical therapy program without relief of their symptoms.? I have reviewed the imaging of the cervical spine and no red flags were identified.? The imaging reveals radiographic findings consistent with cervical radiculopathy The Oswestry Disability Index was completed, and the patient scored a 47%.? start medrol dose pack for acute low back pain. stop nsaids while on mdp recommend pt f/u with pcp for workup of potential inflammatory arthritis. patient exhibits characteristics of fibromyalgia with diffuse myofascial pain, fatigue, depression. encouraged pt to utilize baclofen 5-10mg tid prn pain/spasms encouraged otc tylenol limit nsaids with hx of 1 kidney f/u 1 month
== END 2025-02-19 13:33 | disposition home or self-care (01) ==
LOC: PM 13:32
PROVIDERS: Family Provider Physician Assistant; PCP Nurse Practitioner Family; Visit Provider Nurse Practitioner
DX: M54.50 Low back pain, unspecified (principal); M54.12 Radiculopathy, cervical region; M47.816 Spondylosis without myelopathy or radiculopathy, lumbar region; M47.812 Spondylosis without myelopathy or radiculopathy, cervical region; G89.4 Chronic pain syndrome
CPT/HCPCS: G0463

== ENCOUNTER 2025-03-10 14:18 | Outpatient (OUT) | payer OTHER, SELFPAY ==
--- OUTSIDE RECORDS SUMMARY | 2025-03-10 09:08 | XMS_ITS | Continuity of Care Document ---
Author Organization [facility] Address [address] [place] [address] Phone Care Team Providers Care Retail Advertising Executive Name Role Phone Penelope Garcia APRN Primary Care Provider Khadijah Corbin CMA Attending Provider Penelope Ott APRN Attending Provider Care Teams Patient Care Team Team Status: Active Member Role/Relationship Status Dates Penelope Garcia APRN [employer] PROFESSIONAL-C Primary Care Provider Active Visit Care Team Team Status: Active Member Role/Relationship Status Dates Penelope Garcia APRN [employer] PROFESSIONAL-C Primary Care Provider Active Start: January Khadijah Corbin CMAAttending ProviderActiveStart: February 02, 2025 Visit Care Team Team Status: Inactive Member Role/Relationship Status Dates Penelope Garcia APRN [employer] PROFESSIONAL-C Primary Care Provider Active Start: January End: February 05, 2025Penelope Garcia APRN [employer] PROFESSIONAL-CAttending ProviderActive Start: February 05, 2025 End: February 05, 2025 Patient Care Team Team Status: Inactive Member Role/Relationship Status Dates Penelope Garcia APRN [employer] PROFESSIONAL-C Primary Care Provider Active Start: March End: March 10, 2025Penelope Garcia APRN [employer] PROFESSIONAL-CAttending ProviderActive Start: March 10, 2025 End: March 10, 2025 Chief Complaint and Reason for Visit Chief Complaint Admit Date Amb Documentation February 02, 2025 2 :25pm 6 mo f/u February 05, 2025 1 :54pm discuss pain management and other update s March 10, 2025 1:28pm Reason for Visit Admit Date Anxiety February 05, 2025 1 :54pm Chronic lower back pain February 05 1:54pm Deformity of right lower extremity Novem 2024 1:54pm Depression February 05, 2025 1 :54pm GERD (gastroesophageal reflux disease) N ovember 2024 1:54pm Ingrowing left great toenail January 1:54pm Ingrowing right great toenail February 052024 1:54pm Obesity (BMI 30-39.9) February 05, 2025 1:54pm Stress headaches February 05, 2025 1 :54pm Wellness examination February 05, 2025 1:54pm Cervical stenosis of spine March 10, 2025 1:28pm Lumbar spondylosis March 10, 2025 1 :28pm Multiple joint complaints March 10, 2025 1:28pm Reason for Referral Type Reason(s) Provider Provider [facility] Start Date Spinal stenosis of cervical region Spondylosis of lumbar drqcuI26.02 - Spinal stenosis, cervical region,M47.816 - Spondylosis without myelopathy or radiculopathy, lumbar regionThomas Raymundo Jones MDWork Phone: [phone] [place] [id number] 2024 Allergies, Adverse Reactions, Alerts Allergen Type Severity Reaction Last Updated Verified Status bee venom protein (honey bee) Allergy Severe Anaphylaxis March 10, 2025 1:05pm Yes Active Penicillins Allergy Mild Hives March 10, 2025 1:05pm Yes Active diphtheria,pertus sis (acellular),te Allergy Unknown Unknown Reaction March 10, 2025 1:05pm Yes Active spinach Allergy Unknown Hives March 10, 2025 1:05pm Yes Active prednisone Adverse Reaction Unknown Heartburn March 10, 2025 1:05pm Yes Active Social History Smoking Status Status Start Date End Date Date of Observa tion Ex-smoker (finding) March 10, 2025 12:10pm Observation Status Observation Response Date of Response Legal Sex Female (finding) [facility] Family History Relationship Condition Age at Onset Recorded Date/T donna Not Specified Seizure Unknown motherDiabetes mellitusUnknownHypertensionUnknownAnxietyUnknownDepressionUnknown Problems Active Problems Problem Diagnosis/Recorded Date Onset Date Status C omments Multiple joint complaints March 10, 2025 2:02pm Unknow n Active Irregular heart beatMarch 2023 2:00pmUnknownActivehas pin hole in heart Allergy to honey bee venomAugust 2024 2:52pmUnknownActiveAnaphylaxis due to honey bee venomAugust 2024 9:51amUnknownActiveScreening for osteoporosisJanuary 2024 1:14pmUnknownActiveCarpal tunnel syndromeMarch 2023 2:01pmUnknownActiveScoliosisMarch 2023 2:00pmUnknownActive Chronic lower back painNovember 2023 8:53amUnknownActiveCervical stenosis of spineJune 2024 9:40amUnknownActiveKidney anomaly, congenitalMarch 2023 2:00pmUnknownActiveTrigger finger of right handMarch 2023 2:42pm UnknownActiveAnxietyMarch 2023 2:00pmUnknownActiveArthritisMarch 2023 2:01pmUnknownActiveRight wrist/armDeformity of right lower extremityMay 2023 7:57amUnknownActiveDepressionMarch 2023 2:00pmUnknownActive Wellness examinationJanuary 2024 1:16pmUnknownActiveFamily history of osteoporosisJanuary 2024 1:14pmUnknownActiveStress headachesMay 2023 7:59amUnknownActiveCongenital heart defectMay 2023 2:44pmUnknownActive Ingrowing left great toenailJuly 2024 2:05pmUnknownActiveIngrowing right great toenailJuly 2024 2:05pmUnknownActiveHistory of hysterectomyJanuary 2024 1:13pmUnknownActiveGERD (gastroesophageal reflux disease)February 01, 2024 8:45amUnknownActiveLumbar spondylosisJune 2024 9:40amUnknown ActiveAsthmaMarch 2023 2:01pmUnknownActiveSprain of right ankleJanuary 2024 1:12pmUnknownActiveObesity (BMI 30-39.9)February 08, 2025 9:33am UnknownActiveInactive/Resolved Problems Problem Diagnosis/Recorded Date Onset Date Status C omments Localized swelling, mass and lump, right lower limb October 28, 2024 2:13pm Unknown Resolved RashJune 2023 1:05pmUnknownResolvedHistory of carpal tunnel surgery of right wristMay 2023 2:49pmUnknownResolvedMaxillary sinusitisMarch 2023 2:36pmUnknownResolved Medications Medication Status Dose Units Route Directions Qty Days Refills S tart Date Stop Date End Date Reason(s) Instructions Adherence Ibuprofen 800 mg tablet Discontinued 800 MG PO Every 8 hours as needed for pain 90 30 0 December 25, 2023 10:23am March 24, 2024 8:11amAlbuterol Sulfate 90 mcg/actuation HFA aerosol inhaler Uvxmtilimwhd7SRFGHRZCSKWESEBndyl 6 hours as needed for shortness of breath or wheezing6.75October 2023 3:08pmJuly 2024 6:46amAsthma Unspecified asthma, uncomplicatedIbuprofen 800 mg zzjybySmvyelqlmhdd496GDNJBdchd 8 hours as needed for hahh98836Suxyokpu 2023 8:11amNovember 2024 3:03pmAlbuterol Sulfate 90 mcg/actuation HFA aerosol fkfcvpaXndmdg1RUJP INHALATIONEvery 6 hours as needed for shortness of breath or wheezing6.75July 2024 6:46amAsthma Unspecified asthma, uncomplicatedComplies with drug therapyEpinephrine 0.3 mg/0.3 mL auto-injectorActive0.3MLSUBCUTOnce as needed for hcxqzgykpwe57Krjurn 2024 2:51pm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Complies with drug therapyFamotidine 20 mg qbzzxtRhksgs64PHAO Avicl97802Ydsbaki 2024 8:14amGastroesophageal reflux disease Gastro-esophageal reflux disease without esophagitisComplies with drug therapy Ibuprofen 800 mg wpqlqiGspmuo098GEEQIzznb 8 hours as needed for ianv97566 February 02, 2025 3:02pmComplies with drug therapyEpinephrine 0.3 mg/0.3 mL auto-injectorDiscontinued0.3MLSUBCUTOnce as neededC[facility] 20[facility] 11:00pmAuz[facility] centert 2024 2:52pmAlbuterol Sulfate 90 mcg/actuation HFA aerosol inhaler Hwpggcmlyxit1WPHEMYJPZUUOBLZdxty 6 hours as neededC[facility] 2023 11:00pm January 30, 2024 3:08pmAripiprazole 2 mg zvwmlkFfdhihtwrbzn9PAZDJghxkQxsfr 2023 11:00[facility] 2023 8:46amCiclopirox 1 % shampooDiscontinued TOPICALC[facility] 2023 11:00[facility] 2023 8:32amCiclopirox 0.77 % cream Hzqnymcjixnl8HMTQIHRHZHVOJIldqpKmghs 2023 11:00[facility] 2023 8:32am Diclofenac Sodium 1 % gelDiscontinuedTOPICALC[facility] Clinic [facility] 2023 11:00[facility] 2023 8:32amIbuprofen 800 mg vckezjPucubooaufbp474QICBXneba 6 hours as neededC[facility] Clinic [facility] 2023 11:00pmSeptqu[facility] 2023 10:24amDoxycycline Monohydrate 100 mg gqngftWrtocewnprqh349DVJREtqlo kznms96018Zuhbd 2023 11:00[facility] 2023 8:32amMaxillary sinusitis Chronic maxillary sinusitisMupirocin 2 % ztgugmvbLdsuagzuupzn4BJUXJAFNKMDYJErweh cylmn2730Ftilm 2023 11:00[facility] 2023 8:33amAlbuterol Sulfate 2.5 mg /3 mL (0.083 %) solution for nebulizationActive2.5MGINHALATIONEVERY 4-6 HOURS as needed for shortness of breath or toyixikr60738Rdrym 2023 11:00pmAsthma Unspecified asthma, uncomplicatedComplies with drug therapyAripiprazole 2 mg lclzhaKcqbnfoawlik0SNDPXsfco60077Zne 5th, 2025 12:28pmNov2024 2:09pm Depression Anxiety Depression, unspecified Anxiety disorder, unspecifiedFamotidine 20 mg bsooihIupvckiqdacm65NDGYLtedv68427 August 04, 2024 12:29pmOctober 2024 8:14amGastroesophageal reflux disease Gastro-esophageal reflux disease without esophagitisAripiprazole 2 mg tablet Jxggvi3OBVSZbxux73682Cbagfrst 6th, 2025 2:09pmDepression Anxiety Depression, unspecified Anxiety disorder, unspecifiedComplies with drug therapyCiclopirox 0.77 % cream ActiveAPPLICTOPICALOnceNov[facility] Health2024 12:00amComplies with drug therapy Ciclopirox 1 % shampooActiveTOPICALNovant Health2024 12:00amComplies with drug therapyMethylprednisolone (Medrol (Dominick)) 4 mg tablets,dose uojyIandmgyiwwuo7LU per package xaiwnprwyg3199Crxs 2023 11:00pmFebruary 01, 2024 8:33amRash Rash and other nonspecific skin eruptionPO PER PKG DIRFamotidine 20 mg tablet Gebmqbxklsjn02JEQZVdeowQkdiwia 2023 11:00pmFebruary 01, 2024 8:46am Aripiprazole 2 mg arlkzcPamasjnxgbfj3ASAYLcpjc73513Psubnkqz 1st, 2024 8:44amMay 2024 12:31pmDepression Anxiety Depression, unspecified Anxiety disorder, unspecifiedFamotidine 20 mg pfzneiNxzouxczwjrv23BNMNPxrbz27604 February 01, 2024 8:45amMay 2024 12:31pmGastroesophageal reflux disease Gastro-esophageal reflux disease without esophagitisBaclofen 10 mg tablet Keihkqjamyme19HAXAAgtih times dailyJuly 2024 11:00pmFebruary 02, 2025 2:25pm Vital Signs Vital Reading Result Reference Range Collection Date/Time Height 65 [in_i] February 05, 2025 1:62iyIzvkeg70.91 kgNov2024 1:54pmHeart Rate72 /knz73-110FjgzxltxFebruary 05, 2025 1:54pmRespiratory rate12 /kax30-08XbqoztafFebruary 05, 2025 1:54pmOxygen saturation by Pulse vlfablgu02 %95-100February 05, 2025 1:54pmBP Wewmpbxf835 mm[Hg]100-140February 05, 2025 1:54pmBP Fbymcvpet44 mm[Hg] 60-100Nov2024 1:54pmBMI (Body Mass Index)30.7 kg/t5CjnoplrmFebruary 05, 2025 1:76olMxtmpi09 [in_i]March 10, 2025 1:43gcPpbijt41.36 kgDece2024 1:28pmBody Eimoyaokcue68.1 [degF]97.6-99.0Deceer 2024 1:28pmHeart Rate94 /mwv31-575DcmgbbkmMarch 10, 2025 1:28pmOxygen saturation by Pulse ypkzuean02 %95-100 March 10, 2025 1:28pmBP Idalhhbj003 mm[Hg]100-140Deceer 2024 1:28pmBP Qsxkkfpeq18 mm[Hg]60-100Deceer 2024 1:28pmBMI (Body Mass Index)30.9 kg/a3Ypxliypm 2024 1:28pm Advance Directives Advance Directive Response Recorded Date/ Time Advance Directives No March 10, 2025 12:10pm Insurance Providers Guarantor Yanci Loco Address [address] [facility] [address]Ianndzy Info.Home Phone: Coverage Status Update:2024 Payer Group Member ID Coverage Type Subscriber Relationship to Subscriber Effective Date Expiration Date [facility] [id number] A Rocker Id: [id number] [address] [facility] [address] Home Phone: Self Encounters Encounter Location(s) Arrival/Admit Date Discharge/Departure Date Discharge/Departure Disposition Provider(s) Non-patient / Non-visit -[facility] Novem 2024 2:25pm Khadijah Corbin CMADeparted Physician/Provider [facility] 1:54pmFebruary 05, 2025 2:44pmDischarged to home care or self care (routine discharge)Penelope Garcia APRN CNPDeparted Physician/Provider Office Visit-[facility] 2024 1:28pm March 10, 2025 2:06pmDischarged to home care or self care (routine discharge)Penelope Garcia APRN STREET VENDOR Recent Diagnosis Onset Date Admit Date Anxiety Unknown February 05 1:54pm Chronic lower back pain Unknown February 05, 2025 1:54pm Deformity of right lower extremity Unknown February 05, 2025 1:54pm Depression Unknown February 05 1:54pm GERD (gastroesophageal reflux disease) Unknown February 05, 2025 1:54pm Ingrowing left great toenail Unknown Jan 1:54pm Ingrowing right great toenail Unknown No vember 2024 1:54pm Obesity (BMI 30-39.9) Unknown February 052024 1:54pm Stress headaches Unknown February 05, 2 025 1:54pm Wellness examination Unknown January 1:54pm Cervical stenosis of spine Unknown Decem marylu 2024 1:28pm Lumbar spondylosis Unknown March 10, 2025 1:28pm Multiple joint complaints Unknown Decemb er 2024 1:28pm Assessments Diagnosis Onset Date Resolution Status Admit Date Anxiety acuteFebruary 05, 2025 1:54pmChronic lower back painacuteFebruary 05, 2025 1:54pmDeformity of right lower extremityacuteFebruary 05, 2025 1:54pmDepression acuteFebruary 05, 2025 1:54pmGERD (gastroesophageal reflux disease)acute February 05, 2025 1:54pmIngrowing left great toenailacuteNovember 2024 1:54pmIngrowing right great toenailacuteNovember 2024 1:54pmObesity (BMI 30-39.9)acuteFebruary 05, 2025 1:54pmStress headachesacuteFebruary 05, 2025 1:54pmWellness examinationacuteFebruary 05, 2025 1:54pmCervical stenosis of spineacuteDecember 2024 1:28pmLumbar spondylosisacuteDecember 2024 1:28pmMultiple joint complaintsacuteDecebullhead community hospital 2024 1:28pm Plan of Treatment Author [facility] 20[facility] 9:34amPatient is not suicidal or homicidal at this time. Discussed treatment options with patient today. It was decided in collaboration with the patient to Continue Abilify daily for management with depression/anxiety. Medication profile and possible SE reviewed with patient today. Patient to take medication as directed and prescribed. Do not skip/miss doses and do not stop abruptly. Patient is not interested in counseling at this time. Warning s/s reviewed with patient today. Patient to go immediately to the ER should patient experience any of these. Follow up in 6 months to assess symptoms and medication effectiveness. Patient verbalizes understanding and agrees to treatment plan. see above, under depression assessment Continue Famotidine Reflux symptoms remain unchanged. Discussed the importance of meal content. They should avoid overeating and eating meals late in the evening. Take medication as directed and we will continue to monitor. Has not had and knows to report HAs that awaken from sleep, increasing frequency/severity, unilateral weakness, numbness/tingling in extremities, change in vision, double vision, blurry vision. No recent changes in headache patterns or frequency. Keep headache diary and call with any changes She is currently following with pain management. Reports that she has been doing the injections and these have been working well. Review office notes as received. She is following with ortho as needed. She does have a braced to use as needed when the hand becomes contractured and does have steroid injections as needed. Personalized health advice was given a plan for screenings discussed and provided. Advanced care planning reviewed and/or information given as requested. Additional counseling was provided here today in regards to general topics regarding health education were discussed in detail. All preventative issues were discussed including remaining a nonsmoker, colorectal screening, the importance of proper sleep for brain health maintenance, maintaining a heart- healthy balanced diet, recognizing and addressing signs of anxiety and depression, maintaining positive relationships with family and friends. Continues to have issues with ingrown toenail bilateral. Referral placed to podiatry for further evalaution. Referral to podiatry Patient is advised to work on healthy diet choices and appropriate servings, weight control, regular exercise as directed, reduced fat intake, and salt avoidance. Patient voiced understanding of this and agrees to this plan. Future Tests Future scheduled test information is unavailable Pending Tests Test Name Ordered Date Scheduled Date Cyclic Citrulliated Pep Ab March 10, 2025 2: 01pm Rheumatoid FactorDecember 2024 2:01pm Future Visits Future appointment information is unavailable Future Procedures Procedure Name Ordered Date Scheduled Date JAKE Antinuclear Antibodies March 10, 2025 2: 01pm Anti-Streptolysin O AntibodyDecember 2024 2:01pmComplete Blood Count Auto DiffDecember 2024 2:01pmC-Reactive ProteinDeceer 2024 2:01pm Erythrocyte Sedimentation RateDeceer 2024 2:01pmUric AcidDeceer 2024 2:01pm Future Medications Future medication information is unavailable Patient Instructions Instruction Admit Date Low back pain in adults February 05 1:54pm Hospital Discharge Instructions Ambulatory Orders* Referral to Pain Management Time Frame: 03/10/25, Location: None Selected
--- OUTSIDE RECORDS SUMMARY | 2025-03-10 14:27 | XMS_ITS | CCD ---
Author Organization [facility] CliniSyne Care Team Providers Care [employer] Cook Name Role Phone KOLBY KIRK Admitting Unavailable [...] Care Physician PENELOPE GARCIA Attending Unavailab le MARYAMRBPENELOPE DORAN Admitting Unavailab le Maryamrbachefaiza SCHULTZ, Penelope Primary Care Provider Penelope Garcia APRN Attending Provider [phone] Penelope Garcia APRN Primary Care Provider Penelope Garcia APRN Attending Provider [phone] Jose TAVARES, Penelope Chao Primary Care Provider Ce Reyes MD Unavailable PETITTI, SAIGE A Attending Unavailable Rohrbacher TRANSPORTATION AGENT, Penelope Primary Care Provider Rohrbacher TRANSPORTATION AGENT, Penelope Attending Provider [phone] Rohrbacher TRANSPORTATION AGENT, Penelope Primary Care Provider Rohrbacher TRANSPORTATION AGENT, Penelope Attending Provider Rohrbacher, Penelope Admitting Unavailable [...] Other Provider Morenita Hopson MD Attending Provider [phone] Khadijah Corbin CMA Attending Provider Unavaila ble Rohrbacher TRANSPORTATION AGENT, Penelope Attending Provider [phone] Allergies Allergy ClassificationReported Allergen(s)Allergy TypeDate of OnsetReaction(s) Facility (1 source)cefdinirDrug Sknbrcp31-81-4235[facility] (12 sources)PenicillinsDrug allergy (disorder)66-75-8698NfpeoWkaMartin Memorial Hospital Repository (12 sources)predniSONEDrug Xwucoiz32-34-1847GbraildrrHwo [facility] Rep[facility] (1 source)traMADolDrug Cxsdeng13-02-7408XakLutheran Hospital Rep[facility] (1 source)Pertussis Immune GlobulinDrug allergy (disorder)87-93-8401FohLutheran Hospital Rep[facility] (18 sources)spinach allergenic extract; Translations: [Spinach (substance)]Drug Uwxvgfc77-81-8033[place] constriction (finding), AnaphylaxisMer[facility] St. [facility] (12 sources)bee venom protein (honey bee); Translations: [bee venom protein (honey bee)]Allergy to ufpsqfbmp87-13-6342PmxnwmyzljlCirghcraz [facility] (12 sources)diphtheria,pertussis (acellular),te; Translations: [diphtheria,pertussis (acellular),te]Allergy to vbldizxgm40-36-5537Dwuxeyl ReactionMercy Health St. Charles Hospital (2 sources)Bee/Wasp/Ant venom; Translations: [Bee Stings][facility] allergyL[facility] (2 sources)Penicillin; Translations: [penicillin]Drug AllergyLakehealth [facility] (2 sources)Pertussis Vaccine; Translations: [Whooping-cough vaccine]Drug Allergy Airway constriction (finding)[facility] (2 sources)Sodium Bicarbonate; Translations: [Baking soda]Drug AllergyRed color (finding)[facility] (4 sources)buPROPionDrug Lgiogfw95-64-1582YewdjDHVW Healthcare Work Phone: (4 sources)FLUoxetineDrug Ofxkgvi73-10-4709OEZD Healthcare (4 sources)Honey bee venomAllergy to kocyjeetz47-88-0218KncpjavtdtrVLVJ Healthcare Work Phone: (4 sources)Penicillin GDrug Samoiqs95-00-9865KMUQ Healthcare (4 sources)PrednisoneAllergy to -51-4353ZDWU Healthcare (4 sources)traMADolDrug Tdjhxid80-79-7339AwmmhlfIEYF Healthcare (4 sources)Pertussis VaccinesDrug Goomtqa16-49-8234PcibhgyIFZG Healthcare (1 source)PenicillinsDrug allergy (disorder)15-23-8992FrfcpxyiwMercy Health St. [facility] Repository (1 source)predniSONEDrug Xykcswj41-74-8486IvaqguycuMercy Health St. [facility] Repository Medications Current Medications MedicationDrug Class(es)DatesSig (Normalized)Sig (Original)Acetaminophen / HYDROcodone (1 source)Opioid AgonistStart: 92-09-1725Uxlbkhp 500 mg-5 mg Tab 1 tab(s), Oral, q4hr as needed for pain, 10 tab(s), Refill(s) 0, Take one tab by mouth every four hours as needed for pain Start Date: 06/13/11 Status: OrderedAlbuterol Sulfate 90 mcg/actuation HFA aerosol inhaler (4 sources)Start: 23-70-8202icdy 1 puff(s) by inhalation every six hours as needed for wheezingAlbuterol Sulfate 90 mcg/actuation HFA aerosol inhaler Active 2 PUFF INHALATION Every 6 hours as needed for shortness of breath or wheezing 6.7 January 30, 2024 4:08pmStart: 86-79-3924dyci 1 puff(s) by inhalation every six hours as needed for wheezingAlbuterol Sulfate 90 mcg/actuation HFA aerosol inhaler Active 2 PUFF INHALATION Every 6 hours as needed for shortness of breath or wheezing 6.7 January 30, 2024 3:08pmciclopirox 7.7 mg/ml topical cream (20 sources)Start: 41-55-7192Ufzjqweofn 1 % shampoo Active TOPICAL February 02, 2025 12:00am Complies with drug therapyStart: 39-77-2924Eeyamhqwpi 0.77 % cream Active APPLIC TOPICAL Once February 02, 2025 12:00am Complies with drug therapy Start: 89-93-3734Jbmjyzhgij 1 % shampoo Indications: Other seborrheic dermatitis Use as shampoo 2-3x/week, allow to sit on scalp for 5 minutes before rinsing off 120 mL 10/09/2024 ActiveStart: 04-64-3006ssgmmmvxak (Loprox) 0.77 % cream Indications: Other seborrheic dermatitis Apply (0.7g) to face oncedaily 30 g 10/09/2024 ActiveStart: 96-73-6523Wskvfibohs 1 % shampoo Indications: Other seborrheic dermatitis Use as shampoo 2-3x/week, allow to sit on scalp for 5 minutes before rinsing off 120 mL 10/09/2024 ActiveStart: 10-09-2024 ciclopirox (Loprox) 0.77 % cream Indications: Other seborrheic dermatitis Apply (0.7g) to face oncedaily 30 g 11 10/09/2024 ActiveStart: 10-09-2023 End: 16-42-9533Tuhhgavlsr 1 % shampoo Indications: Other seborrheic dermatitis Use as shampoo 2-3x/week, allow to sit on scalp for 5 minutes before rinsing off 120 mL 11 10/09/2023 10/09/2024 DiscontinuedStart: 06-20-2023 End: 88-12-5582Vqlwkbnitb 1 % shampoo Discontinued TOPICAL June 19, 2023 11:00pm February 01, 2024 8:32amStart: 06-20-2023 End: 10-10-9830Qaknyckxcn 0.77 % cream Discontinued 1 APPLIC TOPICAL Daily June 19, 2023 11:00pm February 01, 2024 8:32amStart: 06-20-2023 End: 93-23-1348Clpjvpevxb Discontinued TOPICAL June 20, 2023 12:00am February 01, 2024 9:98mstnk719963 0.3 ml EPINEPHrine 1 mg/ml auto-injector (17 sources)alpha-Adrenergic Agonist, beta-Adrenergic Agonist, Catecholamine Start: 06-20-2023 End: 81-72-8526Ddkxvksiyka 0.3 mg/0.3 mL auto-injector Active 0.3 ML SUBCUT Once as needed for anaphylaxis 2 1 November 24, 2024 2:51pm 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 Complies with drug therapyStart: 04-31-2359IBPRQJZzxtj (Epipen) 0.3 MG/0.3ML injection syringe Indications: Allergic reaction to bee sting Inject 0.3 mL (0.3 mg) as directed Daily as needed for anaphylaxis (Must be seen in ER if medication used) 2 each 2 06/06/2023 Activefluticasone / salmeterol (1 source)Corticosteroid, beta2-Adrenergic AgonistStart: 69-80-0450thmz 1 puff(s) by inhalation once dailyAdvair 250 mcg-50 mcg Powder 1 puff(s), Inhalation, Daily, Refill(s) 0 Start Date: 12/07/09 Status: Orderedibuprofen 800 mg oral tablet (20 sources)Nonsteroidal Anti-inflammatory DrugStart: 12-25-2023 End: 87-01-0574mnez 1 tablet by mouth every eight hours as needed for pain Ibuprofen 800 mg tablet Active 800 MG PO Every 8 hours as needed for pain 90 30 1 February 02, 2025 3:02pm Complies with drug therapyStart: 06-20-2023 End: 60-51-0955qkia 1 tablet by mouth every six hours as neededIbuprofen 800 mg tablet Discontinued 800 MG PO Every 6 hours as needed June 19, 2023 11:00pm December 25, 2023 10:24amStart: 28-03-0488ptjv 1 tablet by mouth three times daily as needed for painibuprofen 800 MG tablet Take 800 mg by mouth 3 (three) times a day as needed for mild pain or moderate pain. 01/05/2022 ActiveSingulair (1 source)Leukotriene Receptor AntagonistStart: 71-29-5198Mrmegaqxd Oral, Daily, Refills(s) 0 Start Date: 12/07/09 Status: Orderednaproxen 500 mg oral tablet (2 sources)Nonsteroidal Anti-inflammatory DrugStart: 10-56-3930khfz 1 tablet by mouth twice daily as needed for painNaprosyn 500 mg Tab 500 mg = 1 tab(s), Oral, BID, PRN for pain, # 20 tab(s), Refills(s) 0 Start Date: 06/22/15 Status: Ordered ProAir HFA 90 mcg/inh inhalation aerosol (1 source)Start: 50-04-0520qpyj 2 puff(s) by inhalation four times dailyProAir HFA 90 mcg/inh inhalation aerosol 2 puff(s), Inhalation, QID, Refill(s) 0 Start Date: 12/07/09Status: Ordered Completed/Discontinued Medications MedicationDrug Class(es)DatesSig (Normalized)Sig (Original)[id number] 200 actuat albuterol 0.09 mg/actuat metered dose inhaler (20 sources)beta2-Adrenergic AgonistStart: 70-36-4710vgqz 1 puff(s) by inhalation every six hoursAlbuterol Sulfate Active 2 PUFF INHALATION Every 6 hours 6.7 January 30, 2024 4:08pmStart: 92-48-6446fvmx 2.5 mg by inhalation every four to six hours as needed for wheezingAlbuterol Sulfate 2.5 mg /3 mL (0.083 %) solution for nebulization Active 2.5 MG INHALATION EVERY 4-6 HOURS as needed for shortness of breath or wheezing 90 30 0 June 19, 2023 11:00pm Asthma Unspecified asthma, uncomplicated Complies with drug therapyStart: 06-20-2023 End: 35-54-3221peai 1 puff(s) by inhalation every six hours [...] oral tablet (20 sources)Atypical AntipsychoticStart: 06-20-2023 End: 58-31-4913qyii 1 tablet by mouth once dailyAripiprazole 2 mg tablet Discontinued 2 MG PO Daily 90 90 1 February 01, 2024 8:44am August 04, 2024 12:31pm Depression Anxiety Depression, unspecified Anxiety disorder, unspecified baclofen 10 mg oral tablet (3 sources)gamma-Aminobutyric Acid-ergic AgonistStart: 10-28-2024 End: 64-69-7712iszg 1 tablet by mouth three times dailyBaclofen 10 mg tablet Discontinued 10 MG PO Three times daily October 27, 2024 11:00pm February 02, 2025 2:25pmdiclofenac sodium 0.01 mg/mg topical gel (15 sources)Nonsteroidal Anti-inflammatory DrugStart: 06-20-2023 End: 77-88-1555Mpdsmedqoj Sodium 1 % gel Discontinued TOPICAL June 19, 2023 11:00pm February 01, 2024 8:32amStart: 06-20-2023 End: 79-39-1705Fgaebryzyj Sodium 1 % gel Discontinued TOPICAL June 20, 2023 12:00am February 01, 2024 9:32amStart: 06-20-2023 End: 48-90-8234Oxjxrbbpkd Sodium 1 % gel Discontinued TOPICAL June 19, 2023 11:00pm February 01, 2024 8:32amStart: 06-20-2023 End: 09-78-2653Wpeyioeadf Sodium Discontinued TOPICAL June 20, 2023 12:00am February 01, 2024 9:32amStart: 47-34-1895Wgnnyaakaj Sodium Active TOPICAL June 20, 2023 12:00amStart: 14-54-9239qtlyppqifr sodium 1 % gel Indications: Contracture of joint of right hand Apply 2 g topically in the morning and 2 g at noon and 2 g in the evening and 2 g before bedtime. 50 g 2 06/06/2023 Active doxycycline monohydrate 100 mg oral tablet (11 sources)Tetracycline-class DrugStart: 06-20-2023 End: 29-56-3121blvc 1 tablet by mouth twice dailyDoxycycline Monohydrate 100 mg tablet Discontinued 100 MG PO Twice daily 20 10 0 June 19, 2023 11:00pm February 01, 2024 8:32am Maxillary sinusitis Chronic maxillary sinusitis famotidine 20 mg oral tablet (20 sources)Histamine-2 Receptor AntagonistStart: 02-01-2024 End: 80-93-4527fmxy 1 tablet by mouth once dailyFamotidine 20 mg tablet Discontinued 20 MG PO Daily 90 90 1 February 01, 2024 8:45am August 04, 2024 12:31pm Gastroesophageal reflux disease Gastro-esophageal reflux disease without esophagitismethylPREDNISolone 4 mg oral tablet (9 sources)CorticosteroidStart: 09-27-2023 End: 71-42-0550atly 1 tablet by mouth onceMethylprednisolone (Medrol (Dominick)) 4 mg tablets,dose pack Discontinued 0 PO per package directions 21 6 0 September 26, 2023 11:00pm February 01, 2024 8:33am Rash Rash and other nonspecific skin eruption PO PER PKG DIRmupirocin 0.02 mg/mg topical ointment (11 sources)RNA Synthetase Inhibitor AntibacterialStart: 06-20-2023 End: 99-66-1792Dwtgyejfq 2 % ointment Discontinued 1 APPLIC TOPICAL Twice daily 22 7 0 June 19, 2023 11:00pm February 01, 2024 8:33am Problems Active Problems Problem ClassificationProblemDateDocumented DateEpisodic/ChronicAllergic reactions (2 sources)Allergy to honey bee venom; Translations: [Bee allergy status] 74-18-0363FfckjsobPfougxw disorders (19 sources)Anxiety; Translations: [Anxiety disorder, unspecified]06-20-2023 ChronicAsthma (16 sources)Unspecified asthma, uncomplicated; Translations: [Asthma]Onset: 059202-78-1326NhspfepUqodmtz and circulatory congenital anomalies (13 sources)Congenital heart disease; 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, unspecified]Onset: 914948-51-4898KsvkdwkJmkkunc dysrhythmias (15 sources)Irregular heart beat; Translations: [Cardiac arrhythmia, unspecified]28-80-4697HlglmtsYwthcll on above:has pin hole in heartConduction disorders (1 source)Conduction disorder of the fjbuz11-53-0855ZrjddnzMalkvpqkrd and other anemia (1 source)Nqsies27-13-6906BnhnjgbrSzxmmgdtb of lipid metabolism (4 sources)Raised low density lipoprotein cholesterol; Translations: [Pure hypercholesterolemia, unspecified]Onset: 202976-04-9474LnkclrqL Codes: Struck by; against (1 source)Striking against or struck by other objects, initial encounter; Translations: [STRIKING AGNST/STRUCK OTH OBJ INIT]Onset: 31-50-4099DdajbmhyGjxfz or threatened labor (1 source)Premature dkkyo69-49-2961QocvzuetOzdqwbzllh disorders (14 sources)Gastroesophageal reflux disease; Translations: [Gastro-esophageal reflux disease without esophagitis]47-97-5623HursappTelbutydyliqo congenital anomalies (14 sources)Congenital anomaly of the kidney; 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, unspecified]Onset: 832466-76-4479ChluwboXidyt valve disorders (1 source)Heart lornzz09-88-8412UwkxbdipHsruinpsambhg mental health disorders (16 sources)Psychogenic headache; 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]94-62-3029DfhvopiHstd disorders (20 sources)Depressive disorder; Translations: [Depression]Onset: 11-07-2022 05-14-3581ClegsmiVoebyoskcscapj (17 sources)Unspecified osteoarthritis, unspecified site; Translations: [Arthritis]Onset: 544393-26-2587DkbrehiAedtohi on above:Right wrist/arm Other acquired deformities (5 sources)Scoliosis, unspecified; Translations: [Scoliosis [and kyphoscoliosis], idiopathic]Onset: 254767-40-5221TtbsaxoFiipc acquired deformities (11 sources)Scoliosis deformity of spine; Translations: [Scoliosis, unspecified] 17-47-0616GsdaswzAdgjs acquired deformities (11 sources)Deformity of lower limb; Translations: [Unspecified acquired deformity of right thigh]49-64-1484VxpkrbxiNmvnp acquired deformities (5 sources)Unspecified acquired deformity of right thigh; Translations: [Other acquired deformity of other parts of limb]18-64-8867VurmeoktEupvr bone disease and musculoskeletal deformities (1 source)Idiopathic geygbxlps07-49-4241CzkbvluTukrz bone disease and musculoskeletal deformities (4 sources)Idiopathic scoliosis of thoracic and lumbar spine; Translations: [Other idiopathic scoliosis, thoracolumbar region]Onset: ChronicOther congenital anomalies (1 source)Congenital postural inpjqxbsb43-84-7323QqhqirqPaiya congenital anomalies (4 sources)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; Translations: [Congenital malformation of posteriorsegment of eye, unspecified]Onset: 411958-97-5076AcndkvaXhzec connective tissue disease (8 sources)Triggering of digit; Translations: [Trigger finger, unspecified finger]36-49-3165PjujtrpgOunzr connective tissue disease (3 sources)Trigger finger, unspecified finger; Translations: [Trigger finger (acquired)]77-81-2834MdnfhhkeGrjdw connective tissue disease (3 sources)Trigger finger of right hand; Translations: [Trigger finger, unspecified finger]57-93-2421NnonwtsmMckmp inflammatory condition of skin (2 sources)Seborrheic dermatitis; Translations: [Other seborrheic dermatitis] 15-21-5704IpxegpjhIwscw nervous system disorders (12 sources)Carpal tunnel syndrome; Translations: [Carpal tunnel syndrome, unspecified upper limb]34-92-5427KthmexeTkhtw nervous system disorders (4 sources)Carpal tunnel syndrome of left wrist; Translations: [Carpal tunnel syndrome, left upper limb]Onset: 99-28-851579340412-77-5297ZflsdrhXiexh non-traumatic joint disorders (4 sources)Derangement of right shoulder joint; Translations: [Other specific joint derangements of right shoulder, not elsewhere classified]Onset: 09-22-2022 67-77-3496QuoygmaHxogb non-traumatic joint disorders (3 sources)Pain in right ankle and joints of right foot; Translations: [PAIN IN RIGHT ANKLE]Onset: 12-77-7340BteobgkgOzxna screening for suspected conditions (not mental disorders or infectious disease) (9 sources)Patient encounter status; Translations: [Encounter for screening for osteoporosis]06-97-0130RikcuhyyRxgqx skin disorders (9 sources)Eruption; Translations: [Rash and other nonspecific skin eruption] 79-40-7257HexqwlxgJiibx skin disorders (1 source)Rash and other nonspecific skin eruption; Translations: [Rash and other nonspecific skin eruption]24-27-1022MgtgdqdcBbrld skin disorders (16 sources)Ingrowing great toenail; Translations: [Ingrowing nail]EpisodicOther skin disorders (3 sources)Disorder of right lower extremity; Translations: [Localized swelling, mass and lump, right lower limb]89-77-2931OsbgnjbjOlbpg upper respiratory infections (13 sources)Maxillary sinusitis; Translations: [Chronic maxillary sinusitis] 30-59-5414CqokmtySeslgyabq by nonmedicinal substances (6 sources)Allergic reaction to bee sting; Translations: [Toxic effect of venom of bees, accidental (unintentional), initial encounter]Onset: 09-22-2022 48-69-1881IdmvzeezOnpkuthg codes; unclassified (7 sources)Family history of osteoporosis; Translations: [Family history of osteoporosis]84-45-5713OuxcczbyPtjptgnc codes; unclassified (2 sources)Family history of osteoporosis; Translations: [Family history of osteoporosis]38-85-4042QuyuwbckNekqsvna codes; unclassified (2 sources)Acquired absence of both cervix and uterus; Translations: [Acquired absence of both cervix and uterus]97-51-8611DptmxuqeGwmeecgjqfk; intervertebral disc disorders; other back problems (5 sources)Lumbar spondylosis; Translations: [Spondylosis without myelopathy or radiculopathy, lumbar region]72-97-6081XjfyxjiDzantuglbxl; intervertebral disc disorders; other back problems (20 sources)Chronic low back pain; Translations: [Chronic low back pain]Onset: 606813-60-4639OxjvpmqhVhpnkjz and strains (9 sources)Sprain of right ankle; Translations: [Sprain of unspecified ligament of right ankle, initial encounter]01-24-4946CubdashqRsmcgskvwln injury; contusion (2 sources)Contusion of right ankle, initial encounter; Translations: [Contusion of left lower leg, initial encounter]Onset: 19-60-2153GzxgeqcyHzcbsmygjvta (1 source)Streptococcus agalactiae (organism)34-58-7481Ngtzmkwkngrx (3 sources)L60.0 - Ingrowing nail Past or Other Problems Problem ClassificationProblemDateDocumented DateEpisodic/ChronicDiseases of mouth; excluding dental (8 sources)Other diseases of salivary glands; Translations: [Mass of parotid gland]Onset: 09-13-2021 Resolved: 79-47-3704IemvilnwP Codes: Fall (1 source)Unspecified fall, initial encounter; Translations: [UNSPECIFIED FALL INITIAL ENCOUNTER]Onset: 61-73-1241RhlilasfXsnyuyzrxvcoz (4 sources)Lymphadenopathy; Translations: [Generalized enlarged lymph nodes] Onset: 09-22-2022 Resolved: 106943-07-2730YpnlmlkzQmtcr connective tissue disease (3 sources)Pain in left leg; Translations: [PAIN IN LEFT LEG]Onset: 04-07-2021 EpisodicOther connective tissue disease (4 sources)Pain in limb; Translations: [Pain in unspecified limb]Onset: 09-22-2022 Resolved: 610965-47-8064HgflprnjIdjva injuries and conditions due to external causes (4 sources)H/O: injury; Translations: [Personal history of other (healed) physical injury and trauma]Onset: 913964-60-9819BuztmsfkMpjgz nervous system disorders (4 sources)Skin sensation disturbance; Translations: [Unspecified disturbances of skin sensation]Onset: 161072-26-6094OzvcdunqMpdir nervous system disorders (4 sources)Numbness of hand; Translations: [Anesthesia of skin]Onset: 09-22-2022 50-97-8431HaxmvhvzSlywx non-traumatic joint disorders (4 sources)Pain in left hip; Translations: [PAIN IN LEFT HIP]Onset: 04-18-2021 EpisodicResidual codes; unclassified (4 sources)Acquired absence of cervix and uterus; Translations: [Acquired absence of both cervix and uterus]Onset: 973983-68-7526LojtzrooJfxfozqv codes; unclassified (4 sources)Difficulty sleeping ; Translations: [Sleep disorder, unspecified] Onset: 560870-76-6211EayfjqywZkoezgdn codes; unclassified (4 sources)Impairment; Translations: [Other general symptoms and signs]Onset: 497853-17-3662NtdsxpkrZrnefdwpx and history of mental health and substance abuse codes (4 sources)Ex-smoker; Translations: [Personal history of nicotine dependence] Onset: 459380-79-0172MqnwoheaDeheydeix-vabptqg disorders (5 sources)Nicotine dependence, cigarettes, uncomplicated; Translations: [Tobacco dependence syndrome]Onset: 06-29-2017 Resolved: hronic Results Test NameValueInterpretationReference RangeFacilityECH echo transthoracicon 56-89-0522RVS echo transthoracicPREMIER [place] [address] Echocardiogram Signed Patient: Deborah Loco MR#: [id number] 612 : 1985 Acct:[id number] Age/Sex: 39 / F ADM Date: 11/28/24 Loc: Room: Type: [facility] Attending Dr: Penelope Garcia APRN, ENVIRONMENTAL SERVICES TECHNICIAN-C Ordering Provider: Penelope Garcia APRN, CNP Date [...] 1456 Signed By: Morenita Hopson MD 11/28/24 2309[facility] Physician GroupUS renal RTon 28-72-6973JW renal RTPREMIER [place] [address] Ultrasound Report Signed Patient: Deborah Loco MR#: [id number] 612 : 1985 Acct:[id number] Age/Sex: 38 / F ADM Date: 05/12/24 Loc: Room: Type: [facility] Attending Dr: Penelope Garcia APRN, NP-C Ordering [...] Whitney Jr., D.OPer05/12/2024 4:24 PM Dictation Location: [place] [address] Tech: Dana Pack Transcribed By: TANA 05/12/24 1624 Dictated By: Mike Whitney Jr, DO 05/12/24 162 Signed By: 05/12/24 1624[facility] Physician GroupBasophils Auto (Bld) [#/Vol]on 08-30-7601Fmkdhubmj (Bld) [#/Vol]Automated basophil count0.0-0.1FOur Lady of Mercy HospitalBasophils/100 WBC Auto (Bld)on 26-14-2471Lwsbrmhjr/100 WBC (Bld)Automated basophil %0.2-2.0[facility] HospitalCholesterol in LDL Calc [Mass/Vol]on 50-11-6186Uiaoarptoci in LDL [Mass/Vol]Cholesterol in LDL [Mass/volume] in Serum or Plasma by calculationMercy Health St. Charles HospitalComment on above:<100 mg/dl WUBYFCC198-504 mg/dl NEAR OR ABOVE CXBTTJJ760- 159 mg/dl BORDERLINE QIBM519-379 mg/dl HIGH>190 mg/dl VERY HIGHCholesterol in VLDL Calc [Mass/Vol]on 87-40-1832Nugxphypxwq in VLDL [Mass/Vol]Cholesterol in VLDL [Mass/volume] in Serum or Plasma by calculationMercy Health St. Charles HospitalEosinophils/100 WBC Auto (Bld)on 15-25-0932Bmidramsyfr/100 WBC (Bld) Automated eosinophil %0.9-7.0[facility] HospitalErythrocyte distribution width Auto (RBC) [Ratio]on 11-52-4216Ejmujqurvse distribution width (RBC) [Ratio]Erythrocyte distribution width [Ratio] by Automated count11.0-15.[address] [facility] HospitalEstimated glomerular filtration rate (GFR) non- Americanon 60-06-6473HEE/1.73 sq M.predicted among non-blacks MDRD (S/P/Bld) [Vol rate/Area]Estimated glomerular filtration rate (GFR) non->=60 mL/min/1.73m 2FOur Lady of Mercy HospitalGlobulin Calc (S) [Mass/Vol]on 80-40-8149Gwxhqczi (S) [Mass/Vol]Serum globulin measurement by calculation (mass/volume)[facility] HospitalHematocrit Auto (Bld) [Volume fraction]on 62-15-5196Xukeshzedi (Bld) [Volume fraction]Hematocrit [Volume Fraction] of Blood by Automated count36.0-48.0[facility] HospitalHemoglobin [Mass/volume] in Bloodon 86-74-7551Tpxrivttta (Bld) [Mass/Vol] Hemoglobin [Mass/volume] in Blood12.0-16.0[facility] Laboratory - Chemistry and Chemistry - challengeon 66-20-9858Zuglukz [Mass/Vol] 3.6 g/dL3.4-5.0[facility] HospitalALP [Catalytic activity/Vol]70 U/Y58-130FpkokgkrxMercy Health St. Charles HospitalALT [Catalytic activity/Vol]28 U/L 14-59[facility] HospitalAST [Catalytic activity/Vol]17 U/L15-[address] [facility] HospitalBilirubin [Mass/Vol]0.3 mg/dL0.2-1.0[facility] HospitalCalcium [Mass/Vol]8.6 mg/dL8.5-10.1FOur Lady of Mercy HospitalChloride [Moles/Vol]104 mmol/M91-293HqovnpeekMercy Health St. Charles HospitalCholesterol [Mass/Vol]227 mg/dLHigh<=200[facility] Cholesterol in HDL [Mass/Vol]59 mg/iJ76-95KqaoirivyMercy Health St. Charles Hospital Comment on above:> or =60 mg/dl - LOW CARDIOVASCULAR RISK<40 mg/dl - HIGH CARDIOVASCULAR RISKCO2 [Moles/Vol]26.5 mmol/L21.0-32.0[facility] HospitalCreatinine [Mass/Vol]1.02 mg/dL0.55-1.02[facility] GFR/1.73 sq M.predicted MDRD (S/P/Bld) [Vol rate/Area]mL/min/{1.73_m2}>=60 mL/min/1.73m 2FOur Lady of Mercy HospitalGlucose [Mass/Vol]86 mg/rA51-[address] [facility] HospitalPotassium [Moles/Vol]3.6 mmol/L3.5-5.1FOur Lady of Mercy HospitalProtein [Mass/Vol]7.4 g/dL6.4-8.2FAdena Regional Medical Centerodium [Moles/Vol]140 mmol/X135-379CqidjpgvuMercy Health St. Charles HospitalTriglyceride [Mass/Vol]165 mg/dLHigh<=150[facility] Urea nitrogen [Mass/Vol]16.0 mg/dL7.0-18.0[facility] HospitalUrea nitrogen/Creatinine [Mass ratio]15.7 mg/mgMercy Health St. Charles Hospital Laboratory - Hematology and Cell countson 62-25-2063Gpjmhaqk granulocytes/100 WBC (Bld)0.1 %0.0-0.5FOur Lady of Mercy HospitalLeukocytes [#/volume] corrected for nucleated erythrocytes in Blood by Automated counon 35-01-7602JHJ corrected for nucl RBC Auto (Bld) [#/Vol]Leukocytes [#/volume] corrected for nucleated erythrocytes in Blood by Automated coun4.0-11.0[facility] HospitalLymphocytes Auto (Bld) [#/Vol]on 00-16-5572Hrykbfsiccy (Bld) [#/Vol]Lymphocytes [#/volume] in Blood by Automated count1.2-3.8[facility] HospitalLymphocytes/100 WBC Auto (Bld)on 04-30-2024 Lymphocytes/100 WBC (Bld)Lymphocytes/100 leukocytes in Blood by Automated count 20.5-60.0[facility] HospitalH Auto (RBC) [Entitic mass]on 61-57-0425GNO (RBC) [Entitic mass]MCH [Entitic mass] by Automated count26.7-34.[address] [facility] HospitalMCHC Auto (RBC) [Mass/Vol]on 66-31-8689HFHF (RBC) [Mass/Vol]MCHC [Mass/volume] by Automated count29.9-35.2FOur Lady of Mercy HospitalMCV Auto (RBC) [Entitic vol]on 78-00-9598WJV (RBC) [Entitic vol] MCV [Entitic volume] by Automated count81.0-99.0[facility] HospitalMonocytes Auto (Bld) [#/Vol]on 67-47-0391Bndpvlagw (Bld) [#/Vol]Automated blood monocyte count0.3-0.8[facility] HospitalMonocytes/100 WBC Auto (Bld)on 72-10-0589Xqrrainro/100 WBC (Bld)Automated monocyte %1.7-12.[address] [facility] HospitalNeutrophils Auto (Bld) [#/Vol]on 04-30-2024 Neutrophils (Bld) [#/Vol]Neutrophils [#/volume] in Blood by Automated count 1.4-6.5FOur Lady of Mercy HospitalNeutrophils/100 WBC Auto (Bld)on 16-12-6311Eofcxjqhxbp/100 WBC (Bld)Automated neutrophil %43.0-75.0[facility] HospitalNo Panel Informationon 96-16-2879Pfoxxoxrtup # (Auto)0.1 10 3/uL0.0-0.7FOur Lady of Mercy HospitalImmature Granulocyte # (Auto)0.01 10 3/uL0.00-0.03[facility] HospitalPlatelet mean volume Auto (Bld) [Entitic vol]on 09-55-7172Oraubkvp mean volume (Bld) [Entitic vol]Platelet mean volume [Entitic volume] in Blood by Automated count9.5-13.5FOur Lady of Mercy HospitalPlatelets Auto (Bld) [#/Vol]on 83-42-6347Uvqdcycqx (Bld) [#/Vol]Platelets [#/volume] in Blood by Automated vhxir399-572QzspiuvwwMercy Health St. Charles HospitalRBC Auto (Bld) [#/Vol]on 61-72-1571HLF (Bld) [#/Vol]Erythrocytes [#/volume] in Blood by Automated count4.20-5.40[facility] Serum or plasma albumin/globulin mass ratioon 08-78-6249Efzjlqs/Globulin [Mass ratio]Serum or plasma albumin/globulin mass ratioSamaritan North Health Centererum or plasma anion gap determinationon 88-01-6259Ebpml gap [Moles/Vol] Serum or plasma anion gap determinationSamaritan North Health Centererum or plasma total cholesterol/high density lipoprotein (HDL) cholesterol mass lucie 91-38-9229Jlmvhtanpsa.total/Cholesterol in HDL [Mass ratio]Serum or plasma total cholesterol/high density lipoprotein (HDL) cholesterol mass ratMercy Health St. Charles HospitalComment on above:3.3 - 4.4 LOW RISK4.4 - 7.1 AVERAGE RISK7.1 - 11.0 MODERATE RISK>11.0 HIGH RISKXR Spine Scoliosis 1 viewon 41-48-7238GV Spine Scoliosis 1 viewExam Date/Time: 08/14/2023 16:31 [...] mGy = na DAP = naNormalSelect Medical Specialty Hospital - Cincinnati NorthConsent for Treatmenton 08-14-2023 Consent for [id number]#1.00TIFFSelect Medical Specialty Hospital - CantonPhysician Orderon 12-85-3966Cqpfpvkgw Order [id number]#1.00TIFBethesda North HospitalXR Hand - right 3 Viewson 87-02-7000[place] [address] XRay Report Signed Patient: DEBORAH LOCO MR#: [id number] : 1985 Acct:[id number] Age/Sex: 38 / F ADM Date: 07/02/23 Loc: EC Attending Dr: Ozzy Iniguez M.D. Ordering Physician: Ozzy Iniguez M.D. Date of Service: 07/02/23 Procedure(s): XR hand RT min 3V Accession Number(s): [id number] cc: Ozzy Iniguez M.D.; EKTA DANIEL [place] [address] Patient Name: DEBORAH LOCO MRN: [id number] date: 1985 Sex: F Assigned Patient Location: Current Patient Location: Accession/Order Number: [id number] Exam Date: 07/02/2023 09:16 Report Date: 07/03/2023 [...] Signed By: 07/03/23 0652 DD/ 0650 TD/TT: Advanced Practice Registered Nurse:TBHRadiology, Radiologist, - 07/05/2023 [place] [address] XRay Report Signed Patient: DEBORAH LOCO MR#: [id number] : 1985 Acct:[id number] Age/Sex: 38 / F ADM Date: 07/02/23 Loc: EC Attending Dr: Ozzy Iniguez M.D. Ordering Physician: Ozzy Iniguez M.D. Date of Service: 07/02/23 Procedure(s): XR hand RT min 3V Accession Number(s): [id number] cc: Ozzy Iniguez M.D.; EKTA DANIEL [place] [id number] Patient Name: DEBORAH LOCO MRN: [id number] date: 1985 Sex: F Assigned Patient Location: Current Patient Location: Accession/Order Number: [id number] Exam Date: 07/02/2023 09:16 Report Date: 07/03/2023 [...] Signed By: 07/03/23 0652 DD/ 0650 TD/TT: Advanced Practice Registered Nurse: [facility]ITALRosangela HealthcareRadiology Study observation (narrative)[facility] ServicesXR Hand - right 3 ViewsOrdered By: Radiologist Radiology on 68-87-0124LBQQ [employer] Work Phone: XR ANKLE RT MIN 3 VIEWSon 64-04-6642VM ANKLE RT MIN 3 VIEWSEXAM: XR ANKLE [...] Electronically authenticated by: Santy RO Date: 2021-12-31 22:43[facility] CONon 87-21-2559FU NECK ST W CONEXAMINATION: CT NECK ST [...] Electronically authenticated by: OZZY GODFREY Date: 2021-09-13 17:01[facility] HospitalXR HIP LT 2 3V W PELVISon 06-30-2361DD HIP LT 2 3V W PELVIS EXAM: [...] Electronically authenticated by: SANNA HOOD Date: 2021-04-18 11:23[facility] Vital Signs Date TimeVital SignValuePerforming ZwpakssygYezikgeh05-85-9856 13:54-0500Body wtzadv161.1 cmPenelope Gantkandisjodier TRANSPORTATION AGENT Work Phone: [phone]82[facility]11-06-2025 13:54-0500 Body mass index (BMI) [Ratio]30.7 kg/w7JmmmfpcfPenelope Gantrbacher TRANSPORTATION AGENT Work Phone: [phone]11-06-2025 13:54-0500 Body tokatw21.91 kgPenelope Gantrbacher TRANSPORTATION AGENT Work Phone: [phone] [place], [place] 5258011-06-2025 13:54-0500 Diastolic blood hauorgvl04 mm[Hg]Penelope Jose TRANSPORTATION AGENT Work Phone: [phone])[address]11-06-2025 13:54-0500 Heart rate72 /minPenelope Gantrbacher TRANSPORTATION AGENT Work Phone: [phone]11-06-2025 13:54-0500 Respiratory rate12 /minPenelope Gantrbacher TRANSPORTATION AGENT Work Phone: [phone]11-06-2025 13:54-0500 SaO2% (BldA) [Mass fraction]98 %Penelope Jose TRANSPORTATION AGENT Work Phone: [phone] [place], [place] 2784911-06-2025 13:54-0500 Systolic blood nnpsrnof409 mm[Hg]Penelope Janr TRANSPORTATION AGENT Work Phone: [phone]07-29-2025 14:36-0400 Body qcfsoz971.1 cmPenelope Gantrbacher TRANSPORTATION AGENT Work Phone: [phone]07-29-2025 14:36-0400 Body mass index (BMI) [Ratio]31.2 kg/m6Siynahxy Maryamrbacher TRANSPORTATION AGENT Work Phone: [facility]07-29-2025 14:36-0400 Body lgdtarhnypo33.6 [degF]Penelope Garcia TRANSPORTATION AGENT Work Phone: [facility]07-29-2025 14:36-0400 Body ilekmn14.27 kgPenelope Garcia TRANSPORTATION AGENT Work Phone: [facility]07-29-2025 14:36-0400 Diastolic blood nmnblbuw55 mm[Hg]Penelope Garcia TRANSPORTATION AGENT Work Phone: [facility]07-29-2025 14:36-0400 Heart rate72 /Ant Garcia APRN Work Phone: [phone]07-29-2025 14:36-0400 SaO2% (BldA) [Mass fraction]100 %Penelope Montoyafaiza TRANSPORTATION AGENT Work Phone: [facility]07-29-2025 14:36-0400 Systolic blood uakkncqh912 mm[Hg]Penelope Garcia TRANSPORTATION AGENT Work Phone: [facility]06-11-2025 10:09-0400 Body vimplc117.[address] [facility]06-11-2025 10:09-0400Body mass index (BMI) [Ratio]31.8 kg/i7FvnbxkiskMercy Health St. Charles Hospital06-11-2025 10:090400Body kqyhokwqhny86.4 [degF][facility]06-11-2025 10:090400Body gostvq22.[address] [facility] Hospital06-11-2025 10:09-0400Diastolic blood cfvreudi56 mm[Hg][facility] 09-10-2024 10:09-0400Heart rate79 /minMercy Health St. [facility] 09-10-2024 10:09-0868OhB3% (BldA) [Mass fraction]100 %[facility]06-11-2025 10:090400Systolic blood jrqfilyn423 mm[Hg][facility]05-05-2025 13:04-0400Body .1 cmPenelope Garcia TRANSPORTATION AGENT Work Phone: [phone]05-05-2025 13:04-0400 Body mass index (BMI) [Ratio]31.9 kg/s4HdgephcqPenelope Garcia TRANSPORTATION AGENT Work Phone: [phone]05-05-2025 13:04-0400 Body bbumiyoqpwp55.7 [degF]Penelope Garcia TRANSPORTATION AGENT Work Phone: [phone] [place], [place] 2784905-05-2025 13:04-0400 Body nnawbh99.08 kgPenelope Garcia TRANSPORTATION AGENT Work Phone: [phone]05-05-2025 13:04-0400 Heart rate77 /Ant Garcia TRANSPORTATION AGENT Work Phone: [phone] [place], [place] 2784905-05-2025 13:04-0400 SaO2% (BldA) [Mass fraction]99 %Penelope Garcia TRANSPORTATION AGENT Work Phone: [phone] [place], [place] 2784901-28-2025 12:59-0500 Body cholev387.[address] [facility]01-28-2025 12:59-0500Body rfhehibcbko26.4 [degF][facility]01-28-2025 12:59-0500 Diastolic blood vgpwipma23 mm[Hg][facility]01-28-2025 12:59-0500Heart rate80 /minMercy Health St. Charles Hospital01-28-2025 12:59-7446HcL5% (BldA) [Mass fraction]99 %[facility] 04-29-2024 12:59-0500Systolic blood ikmcnlsn731 mm[Hg][facility]11-01-2024 09:28-0400Body lyjfkd108.[address] [facility] 02-01-2024 09:28-0400Body mass index (BMI) [Ratio]30.9 kg/o2LvsarnhvuMercy Health St. Charles Hospital11-01-2024 09:28-0400Body rvndurjpckg44.8 [degF][facility]11-01-2024 09:040Body yyczff07.[address] [facility]11-01-2024 09:280400Diastolic blood sallhxku40 mm[Hg][facility]11-01-2024 09:28-0400Heart rate70 /[facility]11-01-2024 09:281137IlZ0% (BldA) [Mass fraction]98 %[facility]11-01-2024 09:0400Systolic blood iytkvbvu133 mm[Hg] [facility]06-27-2024 13:58-0400Body yadqee470.[address] [facility]06-27-2024 13:58-0400Body mass index (BMI) [Ratio]30.4 kg/f1SrrwnhclmMercy Health St. [facility]06-27-2024 13:58-0400Body xxzfbo76.06 [facility]06-27-2024 13:58-0400Diastolic blood xiywryzp23 mm[Hg][facility]06-27-2024 13:58-0400 Heart rate70 /[facility]06-27-2024 13:58-0400 Respiratory rate12 /[facility]06-27-2024 13:58-0400 Systolic blood yhgzpafs031 mm[Hg][facility]05-06-2024 15:26-0400Body ugpylc639.[address] [facility]05-06-2024 15:26-0400Body mass index (BMI) [Ratio]29.7 kg/q9QgfmtkegzMercy Health St. [facility] Hospital05-06-2024 15:26-0400Body dtbrwnkgzae82.5 [degF][facility]05-06-2024 15:26-0400Body ojcbvl81.19 [facility] 08-06-2023 15:26-0400Diastolic blood mm[Hg][facility]05-06-2024 15:26-0400Heart rate71 /[facility] 08-06-2023 15:26-0400Respiratory rate18 /[facility] 08-06-2023 15:26-9385GjY3% (BldA) [Mass fraction]98 %[facility]05-06-2024 15:26-0400Systolic blood wkprdyxy909 mm[Hg][facility]03-20-2024 14:49-0400Body ezkztw197.[address] [facility]03-20-2024 14:49-0400Body mass index (BMI) [Ratio]29.7 kg/t6UkivmzroaMercy Health St. Charles Hospital03-20-2024 14:49-0400Body .[address] [facility]03-20-2024 14:49-0400Diastolic blood jpdnojgd95 mm[Hg] [facility]03-20-2024 14:49-0400Heart rate78 /[facility]03-20-2024 14:49-5499LsB6% (BldA) [Mass fraction]98 % [facility]03-20-2024 14:49-0400Systolic blood nveuebrd275 mm[Hg][facility] Encounters Encounter DateEncounter TypeCare ProviderFacilityStart: 02-05-2025 End: 48-02-7570ugvreqtyjiGnkwgxgg Rohrbacher APRN Work Phone: -[facility] Centertart: 02-05-2025 End: 22-15-3603Bdtxrrk encounter procedurePenelope Garcia APRN [facility] Work Phone: Start: 02-05-2025 End: 67-03-2265Qsgxana encounter statusPenelope Garcia APRN [facility] Systemtart: 86-77-4789Oli-patient / Non-visitCatherine Shaquille [facility] Work Phone: Start: 01-12-2025 End: 29-27-6221wdnmdzhkiwOgbwtqs Patric Lipscomb MDFacility:[facility] Dex Start: 11-28-2024 End: 10-99-1236Bdedyxs encounter procedurePenelope Garcia APRN [employer] [facility] Work Phone: Start: 11-28-2024 End: 57-52-6325ouqiwypciwNhjapxjs Brookjodiefaiza SCHULTZ Work Phone: [facility] Work Phone: Start: 06-31-8035Iwd-patient / Non-visitLinda Emiliana BENAVIDEZ-[facility] Work Phone: Start: 10-28-2024 End: 84-76-3476rqewyyhyktKtoxrtfx Rohrbjodiefaiza SCHULTZ Work Phone: [facility] Work Phone: Start: 10-28-2024 End: 85-34-2448Fkkrova encounter procedurePenelope Garcia APRN [facility] Work Phone: Start: 10-09-2024 End: 10-86-1304Rxovzz flowsheetEmviolette Hernandez MD Work Phone: noms SWS DERMStart: 10-09-2024 End: 52-00-1270Sjbtkb flowsheetEmviolette Hernandez MD Work Phone: [facility] SWS DERMStart: 10-09-2024 End: 74-79-2041gfjwepdkcgPJBRM Jeremie ORTIZINot AvailableStart: 10-09-2024 End: 85-15-9504Fshoqk outpatient visit 15 minutesEmviolette Hernandez MD Work Phone: [facility] SWS DERMComment on above:Other seborrheic dermatitis (Primary Dx)Start: 09-10-2024 End: 81-06-0977heumxcivsxIatsjikerCleveland Clinic [facility] Work Phone: Start: 09-10-2024 End: 25-99-4568Mnfpvwk encounter procedureEricaamarillorosangela Physician GroupClinton [facility] Hospital Work Phone: Start: 09-08-2024 End: 05-78-5588xnmnxcsertAhlmsdy Vytautas Giedraitis MDFacility:[facility] Dex Start: 08-04-2024 End: 17-90-0506oauaakjljdIhtzjeod Rohrbacher TRANSPORTATION AGENT Work Phone: [facility] Work Phone: Start: 08-04-2024 End: 19-44-3053Tcvsoia encounter procedureJennifer Rohrbacher TRANSPORTATION AGENT Work Phone: [facility] Work Phone: Start: 07-28-2024 End: 88-01-8061hcymunuhipUllhnit Vytautas Giedraitis MDFacility:[facility]ter Start: 06-23-2024 End: 18-62-4549vtylliourwXysstod Vytautas Giedraitis MDFacility:[facility] Start: 05-26-2024 End: 55-70-7350sqqdmzylivXowuldm Vytautas Giedraitis MDFacility:[facility] Start: 05-12-2024 End: 12-95-9000Mtfuddl encounter procedureJennifer Rohrbacher TRANSPORTATION AGENT Work Phone: [facility] [place] Work Phone: Start: 05-12-2024 End: 71-56-3629idnzrluyaeBpkwgjtd Rohrbacher TRANSPORTATION AGENT Work Phone: [facility] Work Phone: Start: 94-25-6235Mxr-patient / Non-visitJennifer Rohrbacher TRANSPORTATION AGENT Work Phone: [facility] Work Phone: Start: 03-65-5020Dblzyng encounter statusSamaritan North Health Centertart: 04-29-2024 End: 17-04-0378pwczmrkgefTtfxiwfckCleveland Clinic [facility] Work Phone: Start: 04-29-2024 End: 68-27-3170Povhkrclr for general adult medical examination without abnormal findingsSamaritan North Health Centertart: 04-29-2024 End: 23-53-3933Rehzcjq encounter procedureAtrium Health [facility] Physician GroupClinton [facility] Hospital Work Phone: Start: 04-28-2024 End: 65-84-5517kbupklbckhPtgxijq Vytautas Giedraitis MDFacility:[facility] Start: 76-22-4474Eue-patient / Non-visitFirdickenson community hospital Physician GroupClinton [facility] Hospital Work Phone: Start: 03-10-2024 End: 09-40-5899bhxwtfqpigFwzrywk Vytautas Giedraitis MDFacility:[facility] Start: 02-11-2024 End: 82-62-3034ivycehixysSchijni Vytautas Giedraitis MDFacility:[facility] Dex Start: 02-01-2024 End: 95-74-7279juuzxackufUxuwzsvytCleveland Clinic [facility] Work Phone: Start: 02-01-2024 End: 53-77-8385Fbywtss encounter procedureAt[facility] Work Phone: Start: 09-27-2023 End: 65-36-4671lelecxpgdlTrkftuuduCleveland Clinic [facility] Work Phone: Start: 09-27-2023 End: 64-73-6655Cwnohjp encounter procedureAt[facility] Work Phone: Start: 08-14-2023 End: 96-57-4955pzfpwozpmcTIWQJMIV A ROHRBACHERFacility:FTMCStart: 08-14-2023 End: 38-83-0521Gdswgob encounter procedurePENELOPE GARCIA [facility] Start: 08-06-2023 End: 57-38-7331sbgnqryarsFertcxdrlCleveland Clinic [facility] Work Phone: Start: 08-06-2023 End: 86-05-3231Whzpxqv encounter procedureAtrium Health [facility] Physician GroupClinton [facility] Hospital Work Phone: Start: 07-03-2023 End: 02-64-2373Kzfsetwoi Result EncounterGeneric External Data ProviderNOMS External Department UnsolicitedStart: 07-03-2023 End: 93-46-7476Prmxwbvww Result EncounterGeneric External Data ProviderNOMS External Department UnsolicitedStart: 06-20-2023 End: 26-17-5764wlhalenwbuPzjvhcnerLouis [facility] Work Phone: Start: 06-20-2023 End: 31-26-2875Gymunra encounter procedureAtrium Health [facility] Phys[facility] Work Phone: Start: 01-09-2022 End: 09-33-1028izrzldnbpjYU EKTA Gomes HEMMERFacility:L0Jcuvk: 12-31-2021 End: 21-64-5315leuadqfgvjPRUNM PARKERFacility:U1Sreqc: 09-13-2021 End: 26-57-6885kboyhfvqjnCW J CARLOS TIMMISFacility:O8Naonu: 04-18-2021 End: 96-55-3793lphwgjzldfHC EKTA Gomes HEMMERFacility:R4Qxmak: 04-07-2021 End: 59-09-4285dtamfqqjevWP DOCTOR MISCFacility:H1 Procedures DateProcedureProcedure DetailPerforming ClinicianStart: 05-12-2024 Ultrasonography of right kidneyJennifer Rohrbacher TRANSPORTATION AGENT Work Phone: Start: 14-12-0530Jydao hand minimum 3 viewsGeneric External Data ProviderStart: 02-18-2019 End: 05-23-2023H/O: hysterectomyHistory of hysterectomySaige Hernandez MD Work Phone: H/O: hysterectomyHistory of hysterectomyHistory of decompression of median nerveHistory of carpal tunnel surgery of right wrist Ligation of fallopian tubeJENNIFER ROHRBACHER right forearmJENNIFER ROHRBACHER Plan of Treatment DateCare ActivityDetailAuthorStart: 10-13-2025 End: 85-90-1586Hsjtkbt encounter procedureNOMS SWS DERMStart: 12-01-2024 Influenza vaccinationInfluenza Vaccine (#1)NOMS HealthcareStart: 10-28-2024 [facility] Work Phone: Start: 28-72-5003Fcdfwwv referralSt. [facility] Hospital Work Phone: Start: 16-07-1241Ptdwimv referralSt. Francis Hospital Work Phone: Start: 43-83-3592Rghaoeg [facility] Work Phone: Comprehensive metabolic 2000 panel - Serum or Plasma [facility] HospitalDXA Skeletal system.axial Views for bone densityMercy Health St. Charles HospitalPatient EducationLow back pain in adults [facility] Work Phone: Patient referralSt. [facility] Hospital Work Phone: US ExtremityMercy Health St. Charles HospitalUS Heart TransthoracicMercy Health St. Charles HospitalUS Kidney - bilateralTrinity Community Hospital Immunizations Immunization DateImmunizationNotesCare SucjstchOnyrhrsb87-41-3835zygwntvklb, tetanus toxoids and pertussis vaccineSaige Hernandez MD Work Phone: [facility] Health ServicesTinmynahfd20-56-5438kawmkksad B vaccine, pediatric or pediatric/adolescent dosageEmviolette Hernandez MD Work Phone: [facility] Payers DatePayer CategoryPayerPolicy [id number] Private Health InsuranceCARESOOKLAHOMA STATE UNIV[facility] MEDICAID Member Subscriber Plan / Payer (Effective 2021-Present) Name: Deborah Loco Relation to Subscriber: Self Name: Deborah Loco Payer ID: Not on file Group ID: [id number] Type: Not on file Address: [facility] [address] [place] [id number] [id number] [id number] 2.16840.1.762097.3.57[id number] 2.16840.1.974276.3.57[id number] 2.16840.1.235515.3.57[id number] 2.16840.1.489076.3.57[id number] 2.16840.1.056014.3.57[id number] 2.16840.1.656778.3.57[id number] 2.16840.1.117392.3.57[id number] 2.16840.1.942282.3.57[id number] 2.16840.1.219094.3.57[id number] 2.16840.1.729529.3.57[id number] 2.16840.1.065942.3.579.[id number] 2.16840.1.903863.3.57[id number] 2.16840.1.528040.3.57[id number] 2.16.840.1.297803.3.57[id number] 2.16.840.1.104160.3.579.2.196 [id number] 2.16.840.1.7[id number] 2..840.1.882118.3.579.2.531 Social History DateTypeDetailFacilityStart: 56-32-0627Wwhbgnp smoking status NHISNever smoked tobacco (finding)[facility] Centertart: 31-26-5603Ipa Assigned At BirthFeFlower HospitalTobacco smoking statusAdams County Regional Medical Centertart: 02-01-2024 End: 99-86-6223Rinkbra smoking status NHISEx-smoker (finding)[facility] Centertart: 04-29-2024 End: 93-45-7862CymHlxwct (finding)[facility] End: 25-95-9963Uccdift of tobacco useCurrent smokerNOMS Healthcare End: 37-28-0848Xxsrfnv of tobacco useCigarette SmokerNOMS HealthcareStart: 89-37-2049Ayhuujg use and exposureSmokeless tobacco non-userNOMS Healthcare Start: 06-06-2023 End: 66-94-0346Nmdgueedn beverage intakeLifetime non-drinker (finding)[facility] HealthcareStart: 10-10-2023 End: 88-16-6235Dmoutmv of Social functionNOMS HealthcareStart: 10-10-2023 End: 15-56-6471Qlzmagg use panelNOMS HealthcareStart: 36-44-8975Mlvffgr Comment Last smoked : > 1 monthNOMS HealthcareStart: 74-14-0719Gpg assigned at birthNot on fileSaint Francis Hospital & Health ServicesStart: 03-89-2188WvtSguntyLDPG Healthcare Clinical Notes 04-07-2021 to 02-05-2025 Note Date & [id number] Hospital Discharge instructionsAmbulatory Orders* Referral to Podiatry Time Frame: 02/05/25, Location: None Selected [facility] Work Phone: 1(778) 880-684807-29-2025 Hospital Discharge instructionsAmbulatory Orders* Referral to Podiatry Time Frame: 10/28/24, Location: None Selected [facility] Work Phone: 1(167) 759-991607-10-2025 History of Present illness Narrative* Saige Hernandez [...] Next Visit: 1 year documented in this [facility]06-11-2025 Evaluation note* Diagnosis Onset Date Resolution Status Admit Date Cervical stenosis of spine acuteJune 2024 10:07amLumbar spondylosisacuteJune 2024 10:07am Ingrowing left great toenailacuteJuly 2024 2:33pmIngrowing right great toenailacuteJuly 2024 2:33pmLocalized swelling, mass and lump, right lower limbacuteJuly 2024 2:33pm [facility] Work Phone: 1(315) 864-349105-05-2025 Evaluation note* Diagnosis Onset Date Resolution Status Admit Date Anxiety acuteMay 2024 1:00pmArthritisacuteMay 2024 1:00pmChronic lower back painacuteMay 2024 1:00pmDeformity of right lower extremityacuteMay 2024 1:00pmDepressionacuteMay 2024 1:00pmGERD (gastroesophageal reflux disease)acuteMay 2024 1:00pmStress headachesacuteMay 2024 1:00pm [facility] Work Phone: 1(348) 500-771205-05-2025 Evaluation note* Diagnosis Onset Date Resolution Status Admit Date Anxiety acuteMay 2024 1:00pmArthritisacuteMay 2024 1:00pmChronic lower back painacuteMay 2024 1:00pmDeformity of right lower extremityacuteMay 2024 1:00pmDepressionacuteMay 2024 1:00pmGERD (gastroesophageal reflux disease)acuteMay 2024 1:00pmStress headachesacuteMay 2024 1:00pm Cervical stenosis of spineacuteJun2024 10:07amLumbar spondylosisacute [place] 2024 10:07amIngrowing left great toenailacuteJuly 2024 2:33pm Ingrowing right great toenailacuteJuly 2024 2:33pm [facility] Work Phone: 1(723) 677-510802-10-2025 Radiology Diagnostic study [facility]PRE[facility] [place] [address] Ultrasound Report Signed Patient: Deborah Loco MR#: [id number] : 1985 Acct:[id number] Age/Sex: 38 / F ADM Date: 5 Loc: Room: Type: [facility] Attending Dr: PRATIK Andino APRN Ordering Provider: [...] Whitney Jr., Aguilar05/12/2024 4:24 PM Dictation Location: [place] [address] Tech: Dana Pack Transcribed By: TANA 05/12/241623 Dictated By: Mike Whitney Jr, DO 05/12/241622 Signed By: 05/12/241623 [facility]01-28-2025 Evaluation note* Diagnosis Onset Date Resolution Status Admit Date Family history of osteoporosis acuteJanuary 2024 12:56pmHistory of hysterectomyacuteJanuary 2024 12:56pmKidney anomaly, congenitalacuteJanuary 2024 12:56pmScreening for osteoporosisacuteJanuary 2024 12:56pmSprain of right ankleacuteJanuary 2024 12:56pm [facility] Work Phone: 1(802) 993-848311-01-2024 Evaluation note* Diagnosis Onset Date Resolution Status [...] right ankleacuteJanuary 2024 12:56pmWellness examinationacuteJanuary 2024 12:56pm [facility] Work Phone: 1(407) 623-505103-20-2024 Hospital Discharge instructionsAmbulatory Orders* Referral to Orthopedic Surgery Time Frame: 06/20/23, Location: None Selected [facility] Work Phone: 1(921) 735-214310-10-2022 NotePROCEDURE: XR ANKLE RT MIN 3 VIEWS HISTORY: Contusion of right ankle ; acute anterior right ankle pain since injury 16 days ago COMPARISON: XR ankle right 12/31/2021 FINDINGS: BONES:No fracture, acute abnormality, or significant arthropathy. SOFT TISSUES:No visible soft tissue swelling. EFFUSION:None visible. OTHER: Negative. IMPRESSION: 1. Normal examination. Electronically authenticated by: OZZY GODFREY Date: 2022-01-09 16:12[facility]01[facility]06[facility]22 NotePROCEDURE: XR FEMUR LT COMPARISON: None. HISTORY: Unspecified fall FINDINGS: BONES:No fracture, acute abnormality, or significant arthropathy. SOFT TISSUES:Negative. No visible soft tissue swelling. EFFUSION:None visible. OTHER: Negative. IMPRESSION: No acute abnormality Electronically authenticated by: TEODORO WHITLEY Date: 2021-04-07 09:14[facility] No data available for this section [facility]* Diagnosis Onset Date Resolution Status Anxiety acuteAsthmaacuteDepressionacuteIrregular heart beatacuteMaxillary sinusitisacute ScoliosisacuteTrigger finger of right handacute [facility] Work Phone: Evaluation note* Diagnosis Onset Date Resolution Status Anxiety acuteAsthmaacuteDepressionacuteIrregular heart beatacuteMaxillary sinusitisacute ScoliosisacuteTrigger finger of right handacuteCongenital heart defectacute Irregular heart beatacuteScoliosisacute [facility] Work Phone: Evaluation note* Diagnosis Onset Date Resolution Status Congenital heart defect acuteDeformity of right lower extremityacuteIrregular heart beatacuteScoliosis acuteStress headachesacuteTrigger finger of right handacuteRashacute [facility] Work Phone: Evaluation note* Diagnosis Onset Date Resolution Status Anxiety acuteChronic lower back painacuteDeformity of right lower extremityacute DepressionacuteGERD (gastroesophageal reflux disease)acuteStress headachesacute [facility] Work Phone: Evaluation note* Diagnosis Onset Date Resolution Status Admit Date Anxiety acuteMay 2024 1:00pmArthritisacuteMay 2024 1:00pmChronic lower back painacuteMay 2024 1:00pmDeformity of right lower extremityacuteMay 2024 1:00pmDepressionacuteMay 2024 1:00pmGERD (gastroesophageal reflux disease)acuteMay 2024 1:00pmStress headachesacuteMay 2024 1:00pm [facility] Work Phone: Evaluation note* Diagnosis Other [...] headachesacuteNovember 2024 1:54pmWellness examinationacuteNovember 6th, 2025 1:54pm [facility] Work Phone: Hospital Discharge instructions No data available for this section [facility] CenterHospital Discharge instructionsAmbulatory Orders* Referral to Pain Management Time Frame: 02/01/24, Location: None [facility] Work Phone: Hospital Discharge instructionsAmbulatory Orders* Referral to Podiatry Time Frame: 04/29/24, Location: None [facility] Work Phone: Progress note No data available for this section [facility] CenterReason for referral (narrative)No reason for referral information available[facility] Work Phone: Summary Purpose Family History Relationship [...] and content) DATE CREATED AUTHOR 01/10/2022 [facility] DATE CREATED AUTHOR AUTHOR'S BALDO ATBRENDON 08/16/2023 [facility] DATE CREATED AUTHOR AUTHOR'S ORGANIZ ATION 10/13/2024 [facility] EPIC DATE CREATED AUTHOR AUTHOR'S ORGANIZ ATION 01/05/2025 [facility] DATE CREATED AUTHOR AUTHOR'S ORGANIZ ATION 01/17/2025 [facility] Care Teams (unrecognized sec tion and content) Team Status: Active Member Role Status Dates Penelope Garcia APRN ENVIRONMENTAL SERVICES TECHNICIAN-C Primary Care Provider Active Team Status: Inactive Member Role Status Dates Penelope Garcia APRN ENVIRONMENTAL SERVICES TECHNICIAN-C Primary Care Provider, Attending Provider Active Start: June 20, 2023 End: June 20, 2023 Team Status: Inactive Member Role Status Dates Penelope Garcia APRN ENVIRONMENTAL SERVICES TECHNICIAN-C Primary Care Provider, Attending Provider Active Start: August 06, 2023 End: August 06, 2023 Team Status: Inactive Member Role Status Dates Penelope Garcia APRN ENVIRONMENTAL SERVICES TECHNICIAN-C Primary Care Provider, Attending Provider Active Start: September 27, 2023 End: September 27, 2023 Team Status: Inactive Member Role Status Dates Penelope Garcia APRN ENVIRONMENTAL SERVICES TECHNICIAN-C Primary Care Provider, Attending Provider Active Start: February 01, 2024 End: February 01, 2024 Team Status: Active Member Role Status Dates Penelope Garcia APRN ENVIRONMENTAL SERVICES TECHNICIAN-C Primary Care Provider Active Start: April Alicia Metcalfending ProviderActiveStart: April 22, 2024 Team Status: Inactive Member Role Status Dates Penelope Garcia APRN ENVIRONMENTAL SERVICES TECHNICIAN-C Primary Care Provider, Attending Provider Active Start: April 29, 2024 End: April 29, 2024 Team Status: Active Member Role Status Dates Penelope Garcia APRN ENVIRONMENTAL SERVICES TECHNICIAN-C Primary Care Provider, Attending Provider Active Start: April 30, 2024 Team Status: Inactive Member Role Status Dates Penelope Garcia APRN ENVIRONMENTAL SERVICES TECHNICIAN-C Primary Care Provider, Attending Provider Active Start: May 12, 2024 End: May 12, 2024 Team Status: Inactive Member Role Status Dates Penelope Garcia APRN ENVIRONMENTAL SERVICES TECHNICIAN-C Primary Care Provider, Attending Provider Active Start: August 04, 2024 End: August 04, 2024 Team Status: Inactive Member Role Status Dates Penelope Garcia APRN ENVIRONMENTAL SERVICES TECHNICIAN-C Primary Care Provider, Attending Provider Active Start: September 10, 2024 End: September 10, 2024Team MemberRelationshipSpecialtyStart [place] [address] [place] [id number] PCP - [facility]10/03/23 Ce Reyes MD [address] [facility] [address] [place] [address] [facility]04/02/24Team MemberRelationshipSpecialtyStart DateEnd Date Penelope Garcia NP [address] [place] [id number] [facility]10/03/23 Ce Reyes MD [address] [facility] [address] [place] [address] [facility]04/02/24 Team Status: Inactive Member Role Status Dates Penelope Garcia APRN ENVIRONMENTAL SERVICES TECHNICIAN-C Primary Care Provider Active Start: August 04, 2024 End: August 04, 2024Penelope Garcia APRN ENVIRONMENTAL SERVICES TECHNICIAN-CAttending ProviderActiveStart: August 04, 2024 End: August 04, 2024 Team Status: Inactive Member Role Status Dates Penelope Garcia APRN ENVIRONMENTAL SERVICES TECHNICIAN-C Primary Care Provider Active Start: September 10, 2024 End: September 10, 2024Penelope Garcia APRN ENVIRONMENTAL SERVICES TECHNICIAN-CAttenkarsten ProviderActive Start: September 10, 2024 End: September 10, 2024 Team Status: Inactive Member Role Status Dates Penelope Garcia APRN ENVIRONMENTAL SERVICES TECHNICIAN-C Primary Care Provider Active Start: October 28, 2024 End: October 28, 2024Penelope Garcia APRN ENVIRONMENTAL SERVICES TECHNICIAN-CAttending ProviderActive Start: October 28, 2024 End: October 28, 2024 Team Status: Inactive Member Role Status Dates Penelope Garcia APRN ENVIRONMENTAL SERVICES TECHNICIAN-C Primary Care Provider Active Start: November 28, 2024 End: November 28, 2024Penelope Garcia APRN ENVIRONMENTAL SERVICES TECHNICIAN-CAttending ProviderActive Start: November 28, 2024 End: November 28, 2024Team MemberRelationshipSpecialtyStart DateEnd Date Ekta Daniel PA [address] [facility] [address] [place] [address] PCP - [facility]07/02/2311 Penelope Garcia NP [facility] [place] [address] PCP - [facility]10/03/23 Ce Reyes MD [address] [facility] [address] [place] [address] PCP - [facility]04/02/24 Team Status: Active Member Role/Relationship Status Dates Penelope Garcia APRN ENVIRONMENTAL SERVICES TECHNICIAN-C Primary Care Provider Active Team Status: Active Member Role/Relationship Status Dates Penelope Garcia APRN ENVIRONMENTAL SERVICES TECHNICIAN-C Primary Care Provider Active Start: November 28, 2024 Penelope Garcia APRN ENVIRONMENTAL SERVICES TECHNICIAN-COther ProviderActiveStart: November 28, 2024 Morenita Hopson MDAttending ProviderActiveStart: November 28, 2024 Team Status: Active Member Role/Relationship Status Dates Penelope Garcia APRN ENVIRONMENTAL SERVICES TECHNICIAN-C Primary Care Provider Active Start: January Khadijah Corbin CMAAttsharron ProviderActiveStart: February 02, 2025 Team Status: Inactive Member Role/Relationship Status Dates Penelope Garcia APRN ENVIRONMENTAL SERVICES TECHNICIAN-C Primary Care Provider Active Start: January End: February 05, 2025Penelope Garcia APRN ENVIRONMENTAL SERVICES TECHNICIAN-CAttending ProviderActive Start: February 05, 2025 End: February [...] BE BASED ON THE PRIMARY CLINICAL RECORDS. [facility]. provides no warranty or guarantee of the accuracy or completeness of information in this document.
[2025-03-10 14:39] LABS: Hematocrit 42.6 % (36.0-48.0); Hemoglobin 14.3 g/dL (12.0-16.0); Immature Granulocytes Abs Auto 0.01 10^3/uL (0.00-0.03); Immature Granulocytes Pct Auto 0.3 % (0.0-0.5); Lymphocytes Absolute Auto 1.0 10^3/uL (1.2-3.8); Mean Corpuscular HGB Conc 33.6 g/dL (29.9-35.2); Mean Corpuscular Hemoglobin 30.2 pg (26.7-34.0); Mean Corpuscular Volume 90.1 fL (81.0-99.0); Platelet Count 326 10^3/uL (150-450); Red Blood Count 4.73 10^6/uL (4.20-5.40); White Blood Count 3.9 10^3/uL (4.0-11.0)
[2025-03-10 14:57] LABS: Uric Acid 3.9 mg/dL (2.6-6.0)
[2025-03-11 11:09] LABS: Anti-CCP Ab, IgG/IgA 14 units (0-19)
[2025-03-11 19:08] LABS: Antinuclear Antibodies, IFA Negative (.)
== END 2025-03-10 14:19 | disposition home or self-care (01) ==
LOC: LAB 14:20
PROVIDERS: Family Provider Physician Assistant; PCP Nurse Practitioner Family; Visit Provider Nurse Practitioner Family
DX: M25.9 Joint disorder, unspecified (principal)
CPT/HCPCS: 36415; 84550; 85025; 85652; 86038; 86060; 86140; 86200; 86431

== ENCOUNTER 2025-03-17 12:55 | Outpatient (RCR) | payer OTHER, SELFPAY | END 2025-03-18 15:05 | disposition home or self-care (01) | LOC: PT 12:55 | PROVIDERS: Family Provider Physician Assistant; PCP Nurse Practitioner Family; Visit Provider Nurse Practitioner Family | DX: M48.02 Spinal stenosis, cervical region (principal); M47.816 Spondylosis without myelopathy or radiculopathy, lumbar region | CPT/HCPCS: 97750 ==